=== PATIENT | male | born 1945 | race Caucasian/White ===

== ENCOUNTER → 2017-04-01 | Outpatient (CLI) | payer MEDICARE, OTHER ==
--- NOTE | 2017-04-01 13:23 | RADIOLOGY REPORT (SQ) ---
EXAM DESCRIPTION: U/S RETROPERITON (RENAL/AORTA); U/S LTD DUPLEX ART/GIA FLOW COMPLETED DATE/TIME: 04/01/2017 12:10 pm REASON FOR STUDY: I70.1 ATHEROSCLEROSIS OF RENAL ARTERY I10 ESSENTIAL (PRIMARY) HYPERTENSION; I70.1 I70.1 ATHEROSCLEROSIS OF RENAL ARTERY I10 ESSENTIAL (PRIMARY) HYPERTENSION N18.6 END STAGE RENAL D ISEASE COMPARISON: None. TECHNIQUE: Realtime and static grayscale images acquired. Selected color Doppler, velocities and spe ctral images recorded. LIMITATIONS: Renal arteries not well-visualized off the aorta FINDINGS: RIGHT KIDNEY: RENAL ARTERY VELOCITIES: At the hilum, 56 cm/sec. Segmental artery velocity 30 cm/sec. RENAL VEIN: Color doppler flow present, patent. VELOCITY RATIO: 0.9. Normal waveforms. KIDNEY: Right kidney is 9 cm in length with diffuse increased echogenicity. No cysts, stones, ashley s, or hydronephrosis LEFT KIDNEY: RENAL ARTERY VELOCITIES: At the hilum, 85 cm/sec. Segmental artery velocity 29 cm/sec. RENAL VEIN: Color doppler flow present, patent. VELOCITY RATIO: 1.4. Normal waveforms. KIDNEY: Left kidney is 9 cm in length with diffuse increased echogenicity. No cysts, stones, ashley s, or hydronephrosis BLADDER: Empty, not visualized OTHER: No other significant finding. IMPRESSION: NO DOPPLER EVIDENCE OF HEMODYNAMICALLY SIGNIFICANT RENAL ARTERY STENOSIS. ECHOGENIC KIDNEYS FROM MEDICAL RENAL DISEASE COMMENT: NORMAL RENAL ARTERY/AORTA VELOCITY RATIO IS LESS THAN OR EQUAL TO 3.5. TECHNICAL DOCUMENTATION: JOB ID: [id number] [email or web address]- All Rights Reserved
== END ==
LOC: RAD 13:32
PROVIDERS: ATTEND Internal Medicine Clinical Cardiac Electrophysiology
DX: I70.1 Atherosclerosis of renal artery (principal); I25.10 Atherosclerotic heart disease of native coronary artery without angina pectoris; N18.6 End stage renal disease; Z95.1 Presence of aortocoronary bypass graft
CPT/HCPCS: 76770; 93976

== ENCOUNTER 2017-09-06 09:32 | Day surgery (SDC) | payer OTHER, MEDICARE ==
[~2017-09-06 09:32] MED LIST: KETOROLAC TROMETHAMINE 0.45% 4 DROP/0.4 ML DROPERETTE OS PRN
[2017-09-06] MEDS: TROPICAMIDE 1% OPH SOLN 3 ML OS PRN ×3 (11:05→11:32)
[2017-09-06] MEDS: CYCLOPENTOLATE 0.2%/PHENYLEPHRINE 1% OPH SOLN 2 ML OS PRN ×3 (11:05→11:32)
[2017-09-06] MEDS: TETRACAINE HCL 0.5% OPH SOLN 0.6 ML DROPERETTE OS PRN ×2 (11:05→11:35)
[2017-09-06] MEDS: BESIFLOXACIN HCL 0.6% OPH SUSP 5 ML BOTTLE OS PRN ×4 (11:06→12:17)
[2017-09-06] MEDS ORDERED: FENTANYL CITRATE INJ/PF 100 MCG/2 ML AMPUL ONE ×2 (11:25→11:59)
[2017-09-06] MEDS ORDERED: MIDAZOLAM 2 MG/2 ML INJ ONE ×2 (11:25→11:54)
[2017-09-06] MEDS: BUPIVACAINE HCL 0.75% INJ/PF (7.5 MG/1 ML) 10 ML SDV OS PRN ×2 (11:48)
[2017-09-06] MEDS: LIDOCAINE 4% INJ/PF (40 MG/ML) 5 ML AMPUL OS PRN ×2 (11:48)
[2017-09-06] MEDS: LIDOCAINE 1%/PHENYLEPHRINE 1.5% 1 ML VIAL ONE ×2 (12:05)
[2017-09-06] MEDS ORDERED: CHONDR SU A NA/HYALUR INTRAOC KIT (SURGICARE) ONE (12:10)
[2017-09-06] MEDS ORDERED: EPINEPHRINE INJ/PF 1 MG/1 ML AMPULE ONE (12:10)
--- NOTE | 2017-09-06 12:45 | [facility] DISCHARGE SUMMARY E ---
[facility] Discharge Summary NAME: JULIANNA MCKEON AGE: 71Y ADMITTED: 09/06/2017 DISCHARGED: 09/06/2017 HOSPITAL COURSE: The patient is a 71-year-old gentleman who underwent uneventful cataract extraction with intraocular lens implant left eye on 09/07/2017. He will be discharged to home. He is instructed to resume preoperative medications, take Tylenol as needed for discomfort, to keep his eye shielded, to use Predforte, ketorolac, and Vigamox at 3 p.m. and 8 p.m., and to follow up in my office in 1 day. DICTATING PHYSICIAN: ADAM ALICIA M.D. [id number] PHY#: [id number] ID: [id number] JOB#: [id number] ACCT: [id number] cc:ADAM ALICIA M.D. >
--- NOTE | 2017-09-06 12:46 | [facility] OPERATIVE REPORT E ---
[facility] Operative Report NAME: JULIANNA MCKEON AGE: 71Y DATE OF SURGERY: 09/06/2017 ROOM: PREOPERATIVE DIAGNOSIS: Cataract, left eye. POSTOPERATIVE DIAGNOSIS: Cataract, left eye. PROCEDURE PERFORMED: Phacoemulsification with posterior chamber intraocular lens, left eye. SURGEON: ADAM ALICIA M.D. ANESTHESIA: Topical with MAC. INDICATIONS FOR SURGERY: Difficulty with lights at night and small print. Best corrected visual acuity 20/50. PROCEDURE: The patient was brought to the Operating Room and placed on the operative table. Following tetracaine drops, topical anesthesia was administered. This consisted of instrument wipe pledgets soaked in a solution of 4% Xylocaine mixed with 0.75% Marcaine in a 1:2 ratio. A 2 x 1 cm pledget was placed in the superior fornix. A 1 x 1 cm pledget was placed in the inferior fornix. The eye was patched shut for 5 minutes. The patch was removed. The eye was sterilely prepped and draped in the usual manner. Lid speculum was placed in the eye. The pledgets were removed. 4-0 black silk sutures were placed around the superior and the inferior rectus muscles to be used as traction. A conjunctival peritomy was made at the 10 o'clock position. Hemostasis was obtained with bipolar cautery. A posterior limbal groove was created using a crescent knife and dissected anteriorly towards the cornea. A sharp point blade was used to create a paracentesis site at the 2 o'clock position. A 2.4 mm keratome was used to enter the anterior chamber through the groove. Viscoelastic was injected into the anterior chamber. An anterior capsulotomy was performed using Utrata forceps in a capsulorrhexis fashion. Hydrodissection and hydrodelineation were performed. Phacoemulsification was performed in owuklz-vyj-czsdosn technique. A total of 6.58 CDE phaco time was used. Following this, the I/A unit was used to remove residual cortex. Viscoelastic was injected into the capsular bag. Intraocular lens model SN60WF, 25.5 diopters, serial number [id number] was placed in the capsular bag. The I/A unit was used to remove residual viscoelastic. The wound was seen to be watertight under high and low pressure, and no sutures were placed. The intraocular lens was well centered. The pressure was adjusted in the eye to normal pressure. The 4-0 black silk sutures and lid speculum were removed. The eye was shielded after Besivance drops were placed. The patient tolerated the procedure well and was sent to the Recovery Room in good condition. DICTATING PHYSICIAN: ADAM ALICIA M.D. [id number] PHY#: [id number] ID: [id number] JOB#: [id number] ACCT: [id number] cc:ADAM ALICIA M.D. >
== END 2017-09-06 13:20 | disposition home or self-care (01) ==
LOC: SC 09:32
PROVIDERS: ATTEND Ophthalmology
DX: H25.813 Combined forms of age-related cataract, bilateral (principal); H04.123 Dry eye syndrome of bilateral lacrimal glands; H57.03 Miosis; E03.9 Hypothyroidism, unspecified; M19.90 Unspecified osteoarthritis, unspecified site; I48.91 Unspecified atrial fibrillation; E11.22 Type 2 diabetes mellitus with diabetic chronic kidney disease; I12.9 Hypertensive chronic kidney disease with stage 1 through stage 4 chronic kidney disease, or unspecified chronic kidney disease; N18.9 Chronic kidney disease, unspecified; D63.1 Anemia in chronic kidney disease; Z99.2 Dependence on renal dialysis; I25.2 Old myocardial infarction; Z79.82 Long term (current) use of aspirin; Z79.899 Other long term (current) drug therapy; Z87.891 Personal history of nicotine dependence; Z79.891 Long term (current) use of opiate analgesic
CPT/HCPCS: 66984; 82962; V2632; J2250; J3490 ×3; J0171; J3010; J2370; 142

== ENCOUNTER 2017-09-27 09:58 | Day surgery (SDC) | payer OTHER, MEDICARE ==
[~2017-09-27 09:58] MED LIST changes: +BESIFLOXACIN HCL 0.6% OPH SUSP 5 ML BOTTLE OD PRN; +BUPIVACAINE HCL 0.75% INJ/PF (7.5 MG/1 ML) 10 ML SDV OD PRN; +CHONDR SU A NA/HYALUR INTRAOC KIT (SURGICARE) ONE; +CYCLOPENTOLATE 0.2%/PHENYLEPHRINE 1% OPH SOLN 2 ML OD PRN; +EPINEPHRINE INJ/PF 1 MG/1 ML AMPULE ONE; +KETOROLAC TROMETHAMINE 0.45% 4 DROP/0.4 ML DROPERETTE OD PRN; -KETOROLAC TROMETHAMINE 0.45% 4 DROP/0.4 ML DROPERETTE OS PRN; +LIDOCAINE 4% INJ/PF (40 MG/ML) 5 ML AMPUL OD PRN; +MIDAZOLAM 2 MG/2 ML INJ ONE; +TETRACAINE HCL 0.5% OPH SOLN 0.6 ML DROPERETTE OD PRN; +TROPICAMIDE 1% OPH SOLN 3 ML OD PRN
[2017-09-27] MEDS: TROPICAMIDE 1% OPH SOLN 3 ML OD PRN ×3 (11:10→11:28)
[2017-09-27] MEDS: TETRACAINE HCL 0.5% OPH SOLN 0.6 ML DROPERETTE OD PRN ×2 (11:10→11:30)
[2017-09-27] MEDS: CYCLOPENTOLATE 0.2%/PHENYLEPHRINE 1% OPH SOLN 2 ML OD PRN ×3 (11:10→11:28)
[2017-09-27] MEDS: BESIFLOXACIN HCL 0.6% OPH SUSP 5 ML BOTTLE OD PRN ×4 (11:10→12:10)
[2017-09-27] MEDS ORDERED: LIDOCAINE 1%/PHENYLEPHRINE 1.5% 1 ML VIAL ONE (12:22)
--- NOTE | 2017-09-27 12:25 | [facility] OPERATIVE REPORT E ---
[facility] Operative Report NAME: JULIANNA MCKEON AGE: 71Y DATE OF SURGERY: 09/27/2017 ROOM: PREOPERATIVE DIAGNOSES: 1. Cataract, right eye. 2. Miosis, right eye. POSTOPERATIVE DIAGNOSES: 1. Cataract, right eye. 2. Miosis, right eye. PROCEDURE PERFORMED: Complex cataract extraction with intraocular lens implant, right eye. SURGEON: ADAM ALICIA M.D. ANESTHESIA: Topical with MAC. INDICATIONS FOR SURGERY: Difficulty reading words on TV and road signs. Best corrected visual acuity 20/50. INDICATIONS FOR COMPLEX: Poor pupil dilation regarding the use of a Malyugin ring. PROCEDURE: The patient was brought to the operating room and placed on the operating table. Topical anesthesia was administered. This consisted of instrument wipe pledgets soaked in a solution of 4% Xylocaine mixed with 0.75% Marcaine in a 1:2 ratio. A 2 x 1 cm pledget was placed in the superior fornix. A 1 x 1 cm pledget was placed in the inferior fornix. The eye was patched shut for 5 minutes. The patch and pledgets were removed. The eye was sterilely prepped and draped in the usual manner. A lid speculum was placed in the eye. A 4-0 black silk suture was placed around the superior and inferior rectus muscles to use as traction. A conjunctival peritomy was made at the 10 o'clock position. Hemostasis was attained with bipolar cautery. A posterior limbal groove was created using a crescent knife and dissected anteriorly towards the cornea. A sharp point blade was used to create a paracentesis site at the 2 o'clock position. A 2.4 mm keratome was used to enter the anterior chamber through the groove. Then 0.5 mL of 1% nonpreserved lidocaine was injected into the anterior chamber. Viscoelastic was injected into the anterior chamber. Pupil dilation was approximately 4.5 mm. A Malyugin Ring was placed stabilizing the iris. An anterior capsulotomy was performed using Utrata forceps in a capsulorrhexis fashion. Hydrodissection and hydrodelineation were performed. Phacoemulsification was performed in a omtwsf-ncv-fnwhaok technique. A total of 35 seconds total phaco time was used. Following this, the I/A unit was used to remove residual cortex. Viscoelastic was injected into the capsular bag. Intraocular lens model SN60WF, 23.5 diopters, serial number [id number], was placed in the capsular bag. The Malyugin ring haptics were removed and the ring was removed from the eye. The I/A unit was used to remove residual viscoelastic. The wound was seen to be watertight under high and low pressure and no sutures were placed. The 4-0 black silk sutures and lid speculum were removed. The eye was shielded after Besivance drops were placed. The patient tolerated the procedure well and was sent to the recovery room in good condition. DICTATING PHYSICIAN: ADAM ALICIA M.D. [id number] PHY#: [id number] ID: [id number] JOB#: [id number] ACCT: [id number] cc:ADAM ALICIA M.D. >
--- NOTE | 2017-09-27 12:26 | [facility] DISCHARGE SUMMARY E ---
[facility] Discharge Summary NAME: JULIANNA MCKEON AGE: 71Y ADMITTED: 09/27/2017 DISCHARGED: 09/27/2017 FINAL DIAGNOSES: 1. Cataract, right eye. 2. Miosis, right eye. HOSPITAL COURSE: The patient is a 71-year-old gentleman who underwent uneventful complex cataract extraction with intraocular lens implant, right eye, on 09/27/2017. He will be discharged to home. He was instructed to resume preoperative medications; to take Tylenol as needed for discomfort; to keep his eye shielded; to use Vigamox, ketorolac, and prednisolone at 3 p.m. and 8 p.m.; and to follow up in my office in 1 day. DICTATING PHYSICIAN: ADAM ALICIA M.D. [id number] PHY#: [id number] ID: [id number] JOB#: [id number] ACCT: [id number] cc:ADAM ALICIA M.D. >
== END 2017-09-27 13:00 | disposition home or self-care (01) ==
LOC: SC 09:58
PROVIDERS: ATTEND Ophthalmology
DX: H25.811 Combined forms of age-related cataract, right eye (principal); H57.03 Miosis; Z96.1 Presence of intraocular lens; M19.90 Unspecified osteoarthritis, unspecified site; D64.9 Anemia, unspecified; E07.9 Disorder of thyroid, unspecified; K21.9 Gastro-esophageal reflux disease without esophagitis; I10 Essential (primary) hypertension; I48.91 Unspecified atrial fibrillation; Z88.2 Allergy status to sulfonamides; Z79.82 Long term (current) use of aspirin; Z79.899 Other long term (current) drug therapy
CPT/HCPCS: 66982; V2632; J2250; J3490 ×3; J0171; J2370; 142

== ENCOUNTER 2017-12-18 13:26 | Emergency (ER) | payer MEDICARE, OTHER ==
--- NOTE | 2017-12-18 13:57 | ER Document Report ---
ED General - General TRAVEL OUTSIDE OF THE [place] IN LAST 30 DAYS: No <JAZMIN SCHRADER - Last Filed: 12/18/17 19:00> <JOVAN CARRILLO - Last Filed: 12/18/17 20:02> - General Chief Complaint: Shortness Of Breath Stated Complaint: SHORTNESS OF BREATH Time Seen by Provider: 12/18/17 13:43 - HPI Notes: Patient is a 72-year-old male with a history of coronary artery disease status post stent placement and CABG in the past, congestive heart failure, A. fib, end -stage renal disease (on peritoneal dialysis daily) who presents to the ED complaining of ongoing dyspnea on exertion and shortness of breath. Patient states that activity exacerbates his symptoms. He was admitted at [facility] for the past 4 weeks and was discharged 3 days ago. Patient states that he was admitted for a "chronic pneumonia." Patient states that he is otherwise eating and drinking without any difficulties. He is having normal bowel movements. Denies h/o COPD/emphysema, but is on inhalers and O2 at home. Denies any headache, fever, neck pain, URI, sore throat, chest pain, palpitations, syncope , abdominal pain, nausea/vomiting/diarrhea, urinary retention, dysuria, hematuria, or rash. (JAZMIN SCHRADER) - Related Data Allergies/Adverse Reactions: Sulfa (Sulfonamide Antibiotics) Allergy (Verified 12/18/17 13:37) Past Medical History - Social History Smoking Status: Never Smoker Family History: Reviewed & Not Pertinent - Past Medical History Cardiac Medical History: Reports: Hx Atrial Fibrillation, Hx Coronary Artery Disease, Hx Hypertension Denies: Hx Heart Attack Pulmonary Medical History: Denies: Hx Asthma Neurological Medical History: Denies: Hx Cerebrovascular Accident, Hx Seizures Renal/ Medical History: Reports: Hx End Stage Renal Disease GI Medical History: Reports: Hx Hiatal Hernia. Denies: Hx Hepatitis, Hx Ulcer Musculoskeletal Medical History: Reports Hx Arthritis Psychiatric Medical History: Reports: Hx Depression - anxiety Infectious Medical History: Denies: Hx Hepatitis Past Surgical History: Reports: Hx Cardiac Catheterization, Hx Cardiac Surgery, Hx Open Heart Surgery. Denies: Hx Pacemaker - Immunizations Hx Pneumococcal Vaccination: 11/28/14 <JAZMIN SCHRADER - Last Filed: 12/18/17 19:00> Review of Systems - Review of Systems -: Yes All other systems reviewed and negative <JAZMIN SCHRADER - Last Filed: 12/18/17 19:00> Physical Exam <JAZMIN SCHRADER - Last Filed: 12/18/17 19:00> <JOVAN CARRILLO - Last Filed: 12/18/17 20:02> - Vital signs Vitals: Temp Resp Pulse Ox 98.3 F 21 H 92 12/18/17 13:32 12/18/17 13:32 12/18/17 13:32 - Notes Notes: PHYSICAL EXAMINATION: GENERAL: Well-appearing, well-nourished and in no acute distress. HEAD: Atraumatic, normocephalic. EYES: Pupils equal round and reactive to light, extraocular movements intact, sclera anicteric, conjunctiva are normal. ENT: Nares patent and without discharge. oropharynx clear without exudates. No tonsilar hypertrophy or erythema. Moist mucous membranes. NECK: Normal range of motion, supple without lymphadenopathy LUNGS: diminished airflow with crackles b/l base. HEART: Regular rate and rhythm without murmurs, rubs, gallops. ABDOMEN: Soft, nontender, nondistended abdomen. No guarding, no rebound. No masses appreciated. Normal bowel sounds present. Musculoskeletal: FROM to passive/active. Strength 5+/5. Extremities: 1+ pitting edema b/l LE's. Peripheral pulses 2+. Capillary refill less than 3 seconds. Melissa neg b/l. NEUROLOGICAL: Cranial nerves grossly intact. Normal speech, normal gait. PSYCH: Normal mood, normal affect. SKIN: Warm, Dry, normal turgor, no rashes or lesions noted. (JAZMIN SCHRADER) Course - Laboratory Result Diagrams: 12/18/17 13:35 12/18/17 13:35 <JAZMIN SCHRADER - Last Filed: 12/18/17 19:00> - Laboratory Result Diagrams: 12/18/17 13:35 12/18/17 13:35 <JOVAN CARRILLO - Last Filed: 12/18/17 20:02> - Re-evaluation Re-evalutation: 12/18/17 15:39 Chest x-ray shows acute CHF exacerbation. BNP 268,000 in the setting of CHF exacerbation and end-stage renal disease. A call was placed for Dr. Tee as Dr. Eric is currently out of commission for health reasons. 12/18/17 16:19 No call back from Dr. Tee (not technically on-call) I did check with our hospitalist, Dr. Vaca, who will not accept due to needing dialysis with no nephrology to consult. Call placed to [facility] for transfer. 12/18/17 16:43 I did speak with Dr. Jillian Mckoy, hospitalist, who accepted patient for admission. He would like us to notify him if any respiratory distress or hypoxia. We will start Zosyn IV. I did review this with the family who is in agreement for transfer. 12/18/17 19:00 Transfer of care to Priya TORRES (JAZMIN SCHRADER) 12/18/17 20:01 EMS is at patient's bedside awaiting transfer. Patient continues to be conscious alert and oriented x4 with vital signs stable. (JOVAN CARRILLO) - Vital Signs Vital signs: Temp Pulse Resp BP Pulse Ox 99.0 F 22 H 143/70 H 96 12/18/17 19:51 12/18/17 19:01 12/18/17 19:00 12/18/17 19:01 - Laboratory Laboratory results interpreted by me: 12/18/17 12/18/17 12/18/17 13:35 13:35 13:35 WBC 12.9 H RBC 2.75 L Hgb 8.4 L Hct 26.4 L MCHC 31.6 L RDW 16.8 H Seg Neuts % (Manual) 91 H Lymphocytes % (Manual) 5 L Abs Neuts (Manual) 11.7 H VBG pCO2 VBG HCO3 Sodium 133.7 L Potassium 5.8 H Chloride 88 L Carbon Dioxide 35 H BUN 105 H Creatinine 8.49 H Est GFR ( Amer) 8 L Est GFR (Non-Af Amer) 6 L Glucose 118 H Direct Bilirubin 0.5 H ALT 20 L NT-Pro-B Natriuret Pep [id number] H Albumin 3.3 L 12/18/17 13:35 WBC RBC Hgb Hct MCHC RDW Seg Neuts % (Manual) Lymphocytes % (Manual) Abs Neuts (Manual) VBG pCO2 63.1 H VBG HCO3 33.9 H Sodium Potassium Chloride Carbon Dioxide BUN Creatinine Est GFR ( Amer) Est GFR (Non-Af Amer) Glucose Direct Bilirubin ALT NT-Pro-B Natriuret Pep Albumin Discharge <JAZMIN SCHRADER - Last Filed: 12/18/17 19:00> <JOVAN CARRILLO - Last Filed: 12/18/17 20:02> - Discharge Clinical Impression: ESRD (end stage renal disease), Pleural effusion due to CHF (congestive heart failure) CHF exacerbation Qualifiers: Heart failure type: unspecified Qualified Code(s): I50.9 - Heart failure, unspecified Condition: Stable Disposition: [facility] Referrals: CHAPARRITA VEGA MD [Primary Care Provider] - Follow up as needed
[2017-12-18 14:24] LABS: HEMATOCRIT 26.4 % (37.9-51.0); HEMOGLOBIN 8.4 g/dL (13.5-17.0); MEAN CORPUSCULAR HEMOGLOBIN 30.3 pg (27.0-33.4); MEAN CORPUSCULAR HGB CONC 31.6 g/dL (32.0-36.0); MEAN CORPUSCULAR VOLUME 96 fl (80-97); PLATELET COUNT 169 10^3/uL (150-450); RED BLOOD COUNT 2.75 10^6/uL (4.35-5.55); RED CELL DISTRIBUTION WIDTH 16.8 % (11.5-14.0); WHITE BLOOD COUNT 12.9 10^3/uL (4.0-10.5)
[2017-12-18 14:26] LABS: ALANINE AMINOTRANSFERASE 20 U/L (21-72); ALBUMIN 3.3 g/dL (3.5-5.0); ALKALINE PHOSPHATASE 107 U/L (38-126); ANION GAP 11 (5-19); ASPARTATE AMINO TRANSFERASE 26 U/L (17-59); BILIRUBIN,DIRECT 0.5 mg/dL (0.0-0.4); BILIRUBIN,TOTAL 0.5 mg/dL (0.2-1.3); BLOOD UREA NITROGEN 105 mg/dL (7-20); CALCIUM 9.3 mg/dL (8.4-10.2); CARBON DIOXIDE 35 mmol/L (22-30); CHLORIDE 88 mmol/L (98-107); GLUCOSE 118 mg/dL (75-110); POTASSIUM 5.8 mmol/L (3.6-5.0); SODIUM 133.7 mmol/L (137-145); TOTAL PROTEIN 7.8 g/dL (6.3-8.2)
[2017-12-18 14:43] LABS: ABSOLUTE LYMPHOCYTES# (MANUAL) 0.6 10^3/uL (0.5-4.7); ABSOLUTE MONOCYTES # (MANUAL) 0.4 10^3/uL (0.1-1.4); ABSOLUTE NEUTROPHILS# (MANUAL) 11.7 10^3/uL (1.7-8.2); BASOPHILS % (MANUAL) 0 % (0-2); EOSINOPHILS % (MANUAL) 1 % (0-6); LYMPHOCYTES % (MANUAL) 5 % (13-45); MONOCYTES % (MANUAL) 3 % (3-13); SEGMENTED NEUTROPHILS % (MAN) 91 % (42-78); TOTAL CELLS COUNTED 100
[2017-12-18 14:44] LABS: ANISOCYTOSIS 1+; PLATELET COMMENT ADEQUATE; POIKILOCYTOSIS 1+; TEAR DROP CELLS 1+
--- NOTE | 2017-12-18 14:45 | RADIOLOGY REPORT (SQ) ---
EXAM DESCRIPTION: CHEST SINGLE VIEW COMPLETED DATE/TIME: 12/18/2017 2:36 pm REASON FOR STUDY: josef MCCRACKEN COMPARISON: 07/24/2015 EXAM PARAMETERS: NUMBER OF VIEWS: One view. TECHNIQUE: Single frontal radiographic view of the chest acquired. RADIATION DOSE: NA LIMITATIONS: None. FINDINGS: LUNGS AND PLEURA: Mixed interstitial and airspace opacities at the lung bases. Small bila teral pleural effusions. No pneumothorax. MEDIASTINUM AND HILAR STRUCTURES: No masses. Contour normal. HEART AND VASCULAR STRUCTURES: Cardiomegaly. Central vascular prominence and indistinctness. BONES: No acute findings. HARDWARE: Midline surgical changes. OTHER: No other significant finding. IMPRESSION: Constellation of findings suggest CHF exacerbation; superimposed infectious process is n ot excluded. TECHNICAL DOCUMENTATION: JOB ID: [id number] [employer]- All Rights Reserved Reading location - IP/workstation name: [email or web address]
[2017-12-18 15:01] LABS: VENOUS BLOOD BASE EXCESS 6.6 mmol/L; VENOUS BLOOD HCO3 33.9 mmol/L (20-32); VENOUS BLOOD PCO2 63.1 mmHg (35-63); VENOUS BLOOD PH 7.35 (7.30-7.42)
[2017-12-18] MEDS ORDERED: LORAZEPAM INJ 2 MG/1 ML VIAL IV ONE ×2 (15:06→18:22)
[2017-12-18] MEDS ORDERED: FUROSEMIDE INJ/PF 40 MG/4 ML SDV IV ONE (15:06)
[2017-12-18 15:22] LABS: TROPONIN I 0.046 ng/mL
--- NOTE | 2017-12-18 16:27 | EKG REPORT ---
SEVERITY:- ABNORMAL ECG - ATRIAL FIBRILLATION LEFT BUNDLE BRANCH BLOCK INFERIOR Q WAVES, POSSIBLY DUE TO LBBB : Confirmed by: Kd Longoria MD 18-Dec-2017 16:26:11
[2017-12-18] MEDS ORDERED: PIPERACILLIN/TAZOBACTAM 3.375 GM VIAL IV ONE (17:34)
[2017-12-18] MEDS ORDERED: ONDANSETRON HCL INJ/PF 4 MG/2 ML SDV IV ONE (18:30)
[2017-12-18 19:20] VITALS: BP 143/70
== END 2017-12-18 20:08 | disposition short-term general hospital (02) ==
LOC: ER 13:26
DX: I13.2 Hypertensive heart and chronic kidney disease with heart failure and with stage 5 chronic kidney disease, or end stage renal disease (principal); N18.6 End stage renal disease; I50.9 Heart failure, unspecified; Z99.2 Dependence on renal dialysis; R06.02 Shortness of breath; I25.10 Atherosclerotic heart disease of native coronary artery without angina pectoris; I48.91 Unspecified atrial fibrillation
CPT/HCPCS: 93005; 96376; 94640; 99285; 96375; 96365; 36415; 85025; 80053; 84484; 82803; 83880; 71045; 93010; J1940; J2060; J2405; J2543

== ENCOUNTER 2018-01-09 17:49 | Inpatient (IN) | payer MEDICARE, OTHER ==
[2018-01-09] MEDS ORDERED: FENTANYL CITRATE INJ/PF 100 MCG/2 ML AMPUL IV ONE ×3 (18:51→22:03)
[2018-01-09] MEDS ORDERED: ONDANSETRON HCL INJ/PF 4 MG/2 ML SDV IV ONE (18:51)
--- NOTE | 2018-01-09 18:56 | ER Document Report ---
ED General - General Mode of Arrival: Ambulatory Information source: Patient TRAVEL OUTSIDE OF THE [place] IN LAST 30 DAYS: No - HPI Onset: Other - 4 days ago Quality of pain: Cramping Severity: Moderate Associated symptoms: Nausea, Vomiting Exacerbated by: Denies Relieved by: Denies Similar symptoms previously: No Recently seen / treated by doctor: No <DESTINEE JNAE - Last Filed: 01/09/18 23:57> <LUCY FRANCO - Last Filed: 01/10/18 02:36> - General Chief Complaint: Abdominal Pain Stated Complaint: POSSIBLE BOWEL OBSTRUCTION Time Seen by Provider: 01/09/18 18:31 Notes: 72-year-old male presents emergency department with a 4-day history of nausea, vomiting, constipation, diffuse abdominal pain. Patient states that the abdominal pain comes in waves. He describes it is a cramping sensation. He denies any alleviating or exacerbating factors. He is passing gas. He denies any hematemesis, melena, hematochezia, dysuria, hematuria, increased urgency, increased frequency, penile discharge, testicular pain. He denies any surgeries on his abdomen. He is eating/drinking despite his symptoms. Patient says that he has chronic neck pain and goes to pain management. Has been taking his narcotic pain medication as needed. He acknowledges that this can be causing his constipation. (DESTINEE JANE) - Related Data Allergies/Adverse Reactions: Sulfa (Sulfonamide Antibiotics) Allergy (Verified 12/18/17 13:37) Past Medical History - General Information source: Patient - Social History Smoking Status: Former Smoker Family History: Reviewed & Not Pertinent Patient has suicidal ideation: No Patient has homicidal ideation: No - Past Medical History Cardiac Medical History: Reports: Hx Atrial Fibrillation, Hx Coronary Artery Disease, Hx Hypertension Denies: Hx Heart Attack Pulmonary Medical History: Denies: Hx Asthma Neurological Medical History: Denies: Hx Cerebrovascular Accident, Hx Seizures Renal/ Medical History: Reports: Hx End Stage Renal Disease, Hx Peritoneal Dialysis GI Medical History: Reports: Hx Hiatal Hernia. Denies: Hx Hepatitis, Hx Ulcer Musculoskeletal Medical History: Reports Hx Arthritis Psychiatric Medical History: Reports: Hx Depression - anxiety Infectious Medical History: Denies: Hx Hepatitis Past Surgical History: Reports: Hx Cardiac Catheterization, Hx Cardiac Surgery, Hx Open Heart Surgery. Denies: Hx Pacemaker - Immunizations Hx Pneumococcal Vaccination: 11/28/14 <DESTINEE JANE - Last Filed: 01/09/18 23:57> Review of Systems - Review of Systems Constitutional: No symptoms reported EENT: No symptoms reported Cardiovascular: No symptoms reported Respiratory: No symptoms reported Gastrointestinal: Abdominal pain, Nausea, Vomiting Genitourinary: No symptoms reported Musculoskeletal: No symptoms reported Skin: No symptoms reported Hematologic/Lymphatic: No symptoms reported Neurological/Psychological: No symptoms reported -: Yes All other systems reviewed and negative <DESTINEE JANE - Last Filed: 01/09/18 23:57> Physical Exam <DESTINEE JANE - Last Filed: 01/09/18 23:57> <LUCY FRANCO - Last Filed: 01/10/18 02:36> - Vital signs Vitals: Temp Pulse Resp BP Pulse Ox 98.3 F 87 18 129/70 H 100 01/09/18 18:01 01/09/18 18:01 01/09/18 18:01 01/09/18 18:01 01/09/18 18:01 - Notes Notes: PHYSICAL EXAMINATION: GENERAL: Well-appearing, well-nourished and in no acute distress. HEAD: Atraumatic, normocephalic. EYES: Pupils equal round and reactive to light, extraocular movements intact, sclera anicteric, conjunctiva are normal. ENT: Nares patent, oropharynx clear without exudates. Moist mucous membranes. NECK: Normal range of motion, supple without lymphadenopathy LUNGS: Breath sounds clear to auscultation bilaterally and equal. No wheezes rales or rhonchi. HEART: Regular rate and rhythm without murmurs ABDOMEN: Soft, diffuse tenderness to palpation. No rebound or guarding. Normal active bowel sounds. Musculoskeletal: Normal range of motion, no pitting or edema. No cyanosis. NEUROLOGICAL: Cranial nerves grossly intact. Normal speech, normal gait. Normal sensory, motor exams PSYCH: Normal mood, normal affect. SKIN: Warm, Dry, normal turgor, no rashes or lesions noted. (DESTINEE JANE ) Course - Laboratory Result Diagrams: 01/09/18 19:08 01/09/18 19:08 <DESTINEE JANE - Last Filed: 01/09/18 23:57> - Laboratory Result Diagrams: 01/09/18 19:08 01/09/18 19:08 <LUCY FRANCO - Last Filed: 01/10/18 02:36> - Re-evaluation Re-evalutation: 01/09/18 20:21 EKG: Ventricular rate 82, QRS duration 162, QTc 528, atrial fibrillation. left bundle branch block. Similar to EKG done on 12/18/17. 01/09/18 23:00 WBC is within normal limits. CT abd/pelvis done. Moderate left pleural effusion appreciated. Constipation seen. Patient denies shortness of breath, chest pain. Says he has a history of chronic pleural effusions. Patient still complaining of diffuse abdominal pain. Nausea resolved. No vomiting while in the ED. Re- evaluation of the abdomen done. Now showing peritoneal signs. Patient says his pain is worsening. I contacted the patient's sharepoint manager, Dr. Eric. I went over the patient's current labs and imaging. He says that the patient's peritoneal fluid needs to be sent down to lab for evaluation. I discussed this with the patient. He's not happy about having the peritoneal dialysis done in the ED. I explained to him that we need to rule out infection in the PD fluid. Patient insisting on receiving blood for his anemia. I told him his hemoglobin is stable when compared to previous values and no blood would be given. Patient is now agreeable with doing the peritoneal dialysis in the ED. I turned patient over to Dr. Franco with peritoneal dialysis pending. 01/09/18 23:26 (DESTINEE JANE) 01/10/18 02:24 Dr. Mccarthy checked of the patient to me awaiting the results of peritoneal fluid analysis. His white blood cell count peritoneal fluid is very high. I did speak with Dr. Eric, sharepoint manager, who requests that we mixed 1 g of vancomycin and 1 g of ceftazidime bag of dialysate fluid and put his abdomen to leave for 6 hours. Plan admit the patient to medicine. I will contact the hospitalist about admission. I explained the plan to the patient he is agreeable to it. 01/10/18 02:34 Spoke with hospitalist, Dr. Blackman, agrees to accept the patient for admission. (LUCY FRANCO) - Vital Signs Vital signs: Temp Pulse Resp BP Pulse Ox 98.3 F 92 16 157/71 H 93 01/09/18 18:01 01/09/18 23:43 01/10/18 02:01 01/10/18 02:00 01/10/18 02:01 - Laboratory Laboratory results interpreted by me: 01/09/18 01/09/18 19:08 19:08 RBC 2.64 L Hgb 8.5 L Hct 25.4 L RDW 17.7 H Seg Neuts % (Manual) 85 H Lymphocytes % (Manual) 6 L Sodium 131.0 L Potassium 5.3 H Chloride 87 L BUN 100 H Creatinine 7.94 H Est GFR ( Amer) 8 L Est GFR (Non-Af Amer) 7 L Calcium 8.2 L ALT 14 L Total Protein 5.9 L Albumin 2.8 L Lipase < 10.0 L Discharge <DESTINEE JANE - Last Filed: 01/09/18 23:57> - Discharge Admitting Provider: Hospitalist Unit Admitted: Telemetry <LUCY FRANCO - Last Filed: 01/10/18 02:36> - Discharge Clinical Impression: Bacterial peritonitis, ESRD (end stage renal disease) Constipation Qualifiers: Constipation type: unspecified constipation type Qualified Code(s): K59.00 - Constipation, unspecified Condition: Stable Disposition: ADMITTED OBSERVATION Referrals: CHAPARRITA VEGA MD [Primary Care Provider] - Follow up as needed
[2018-01-09 19:19] LABS: HEMATOCRIT 25.4 % (37.9-51.0); HEMOGLOBIN 8.5 g/dL (13.5-17.0); MEAN CORPUSCULAR HEMOGLOBIN 32.1 pg (27.0-33.4); MEAN CORPUSCULAR HGB CONC 33.4 g/dL (32.0-36.0); MEAN CORPUSCULAR VOLUME 96 fl (80-97); PLATELET COUNT 150 10^3/uL (150-450); RED BLOOD COUNT 2.64 10^6/uL (4.35-5.55); RED CELL DISTRIBUTION WIDTH 17.7 % (11.5-14.0); WHITE BLOOD COUNT 9.6 10^3/uL (4.0-10.5)
[2018-01-09 19:39] LABS: BLOOD UREA NITROGEN 100 mg/dL (7-20); CALCIUM 8.2 mg/dL (8.4-10.2); CARBON DIOXIDE 26 mmol/L (22-30); CHLORIDE 87 mmol/L (98-107); GLUCOSE 97 mg/dL (75-110); POTASSIUM 5.3 mmol/L (3.6-5.0)
[2018-01-09 19:40] LABS: ABSOLUTE LYMPHOCYTES# (MANUAL) 0.6 10^3/uL (0.5-4.7); ABSOLUTE MONOCYTES # (MANUAL) 0.9 10^3/uL (0.1-1.4); ABSOLUTE NEUTROPHILS# (MANUAL) 8.2 10^3/uL (1.7-8.2); ALANINE AMINOTRANSFERASE 14 U/L (21-72); ALBUMIN 2.8 g/dL (3.5-5.0); ALKALINE PHOSPHATASE 74 U/L (38-126); ANION GAP 18 (5-19); ASPARTATE AMINO TRANSFERASE 20 U/L (17-59); BASOPHILS % (MANUAL) 0 % (0-2); BILIRUBIN,DIRECT 0.4 mg/dL (0.0-0.4); BILIRUBIN,TOTAL 0.4 mg/dL (0.2-1.3); EOSINOPHILS % (MANUAL) 0 % (0-6); LYMPHOCYTES % (MANUAL) 6 % (13-45); MONOCYTES % (MANUAL) 9 % (3-13); SEGMENTED NEUTROPHILS % (MAN) 85 % (42-78); TOTAL CELLS COUNTED 100; TOTAL PROTEIN 5.9 g/dL (6.3-8.2)
[2018-01-09 19:41] LABS: ANISOCYTOSIS 1+; LIPASE < 10.0 U/L (23-300); PLATELET COMMENT ADEQUATE; POIKILOCYTOSIS SLIGHT; TOXIC GRANULATION SLIGHT
--- NOTE | 2018-01-09 22:02 | RADIOLOGY REPORT (SQ) ---
EXAM DESCRIPTION: CT ABDOMEN PELVIS WITHOUT IV CONTRAST COMPLETED DATE/TME: 01/09/2018 19:50 CLINICAL HISTORY: 72 years, Male, abdominal pain COMPARISON: None. TECHNIQUE: 282 Images stored on PACS. All CT scanners at this facility use dose modulation, iterative reconstruction, and/or weight based dosing when appropriate to reduce radiation dose to as low as reasonably achievable (ALARA). [facility]: Dose Right [facility]: CareDose [facility]: Dose Right [facility]: Teradose 4D [facility]: Shopsy LIMITATIONS: None. FINDINGS: Limited evaluation of the lung bases demonstrates a moderate left pleural effusion. Bibasilar subsegmental atelectasis. Cardiomegaly. Extensive atheromatous change. Osseous structures of the abdomen/pelvis are grossly intact. Evaluation of solid visceral organs is limited due to lack of IV contrast. Slightly coarsened echotexture to the liver. This could reflect early cirrhotic change.. Percutaneous catheter with the tip coiled in the right upper quadrant. The gallbladder appears mildly distended. The visualized portions of the spleen, adrenal glands, pancreas are grossly unremarkable. Kidneys are unremarkable bilaterally. Large amount of stool within the colon. No gross evidence for bowel obstruction. No free air or free fluid. The appendix is not well seen. No pericecal inflammation. IMPRESSION: Moderate left pleural effusion. Cardiomegaly. Extensive atheromatous change. Slightly coarsened echotexture to the liver which could reflect early cirrhotic change. Catheter with the tip coiled in the right upper quadrant. Large amount of stool in the colon. TECHNICAL DOCUMENTATION: Quality ID # 436: Final reports with documentation of one or more dose reduction techniques (e.g., Automated exposure control, adjustment of the mA and/or kV according to patient size, use of iterative reconstruction technique) 2010 [employer]- All Rights Reserved
[2018-01-09] MEDS ORDERED: MORPHINE SULFATE 10 MG/ML INJ IV ONE (23:33)
[2018-01-10 01:26] LABS: FLUID SOURCE ABDOMEN; FLUID TYPE PERITONEAL
[2018-01-10 01:27] LABS: FLUID APPEARANCE HAZY; FLUID COLOR STRAW; FLUID VISCOSITY LIQUID
[2018-01-10] MEDS ORDERED: CEFTAZIDIME INJ 1 GM VIAL INJ ONE (02:21)
[2018-01-10] MEDS ORDERED: VANCOMYCIN HCL INJ 1000 MG VIAL IPER ONE (02:21)
[2018-01-10] MEDS ORDERED: MINERAL OIL 30 ML UDCUP PR ONE (02:26)
[2018-01-10] MEDS ORDERED: IPRATROPIUM/ALBUTEROL 0.5-2.5 MG/3 ML AMPUL NEB PRN (02:36)
[2018-01-10] MEDS ORDERED: ACETAMINOPHEN 325 MG TABLET PO PRN (02:36)
[2018-01-10] MEDS ORDERED: MAGNESIUM HYDROXIDE SUSP 30 ML UDCUP PO PRN (02:36)
[2018-01-10] MEDS ORDERED: METOPROLOL TARTRATE 50 MG TABLET PO ONE (03:00)
[2018-01-10] MEDS ORDERED: NORMAL SALINE 1000 ML 1,000 ML IV PRN (03:00)
[2018-01-10] MEDS: LEVOTHYROXINE SODIUM 0.1 MG TABLET PO SCH (06:10)
[2018-01-10] MEDS ORDERED: MINERAL OIL ENEMA 133 ML PR ONE (06:13)
[2018-01-10 06:20] LABS: HEMATOCRIT 26.2 % (37.9-51.0); HEMOGLOBIN 8.5 g/dL (13.5-17.0); MEAN CORPUSCULAR HEMOGLOBIN 30.9 pg (27.0-33.4); MEAN CORPUSCULAR HGB CONC 32.3 g/dL (32.0-36.0); MEAN CORPUSCULAR VOLUME 96 fl (80-97); PLATELET COUNT 179 10^3/uL (150-450); RED BLOOD COUNT 2.75 10^6/uL (4.35-5.55); RED CELL DISTRIBUTION WIDTH 17.7 % (11.5-14.0); WHITE BLOOD COUNT 13.8 10^3/uL (4.0-10.5)
[2018-01-10 06:33] LABS: BLOOD UREA NITROGEN 97 mg/dL (7-20); CALCIUM 8.3 mg/dL (8.4-10.2); GLUCOSE 80 mg/dL (75-110); POTASSIUM 5.5 mmol/L (3.6-5.0)
[2018-01-10] MEDS ORDERED: LACTULOSE SYRUP 20 GM/30 ML UDCUP PO ONE (06:37)
--- NOTE | 2018-01-10 06:37 | PDOC H&P ---
History of Present Illness Admission Date/PCP: 01/10/18 02:40 CHAPARRITA VEGA MD Patient complains of: Nausea and vomiting History of Present Illness: JULIANNA MCKEON JR is a 72 year old male with a past medical history of end- stage renal failure on peritoneal dialysis. He presents with 4 days of nausea and vomiting, constipation and diffuse abdominal pain. Prompting evaluation emergency room where he is found to have peritonitis with peritoneal fluid WBCs greater than [address] with significant fecal retention. He is started on vancomycin and ceftaz to the peritoneal fluid per recommendation of his temporary administrative assistant Dr. Femi Eric. Past Medical History Cardiac Medical History: Reports: Atrial Fibrillation, Coronary Artery Disease, Hypertension Denies: Myocardial Infarction Pulmonary Medical History: Denies: Asthma Neurological Medical History: Denies: Seizures Renal/ Medical History: Reports: End Stage Renal Disease GI Medical History: Reports: Hiatal Hernia Denies: Hepatitis Musculoskeltal Medical History: Reports: Arthritis Psychiatric Medical History: Denies: Depression Hematology: Reports: Anemia Denies: Sickle Cell Disease Past Surgical History Past Surgical History: Reports: Cardiac Catheterization Denies: Pacemaker Social History Information Source: Patient, H Records Smoking Status: Unknown if Ever Smoked Frequency of Alcohol Use: None Hx Recreational Drug Use: No Drugs: None Hx Prescription Drug Abuse: No - Advance Directive Resuscitation Status: Full Code Family History Family History: Hypertension Parental Family History Reviewed: Yes Children Family History Reviewed: Yes Sibling(s) Family History Reviewed.: Yes Medication/Allergy Home Medications: Ascorbic Acid [Vitamin C] 500 mg PO BID 04/07/15 Aspirin [Aspirin 81 mg Chewable Tablet] 81 mg PO DAILY 04/07/15 Cyanocobalamin (Vitamin B-12) [Vitamin B-12 1000 mcg Tablet] 1 tab PO DAILY 10/13 Esomeprazole Magnesium [Nexium] 40 mg PO DAILY 04/07/15 Ferrous Sulfate [Feosol 325 mg Tablet] 325 mg PO BID 04/07/15 Folic Acid 1 mg PO DAILY 04/07/15 Furosemide [Lasix 40 mg Tablet] 40 mg PO DAILY 04/07/15 Lisinopril [Zestril] 20 mg PO BID 04/07/15 Metoprolol Tartrate [Lopressor 50 mg Tablet] 50 mg PO Q12H 04/07/15 Multivitamin [Multivitamins] 1 each PO DAILY 04/07/15 Pravastatin Sodium [Pravachol] 80 mg PO QHS 04/07/15 Tamsulosin HCl [Flomax 0.4 mg Cap.sr] 0.4 mg PO DAILY 04/07/15 Calcitriol 0.25 mcg PO DAILY 07/12/15 Calcium Acetate 667 mg PO TID 07/12/15 Hydroxyzine HCl 10 mg PO TIDP PRN 07/12/15 Magnesium Oxide 400 mg PO BID 07/12/15 Clonazepam [Klonopin 1 mg Tablet] 0.5 mg PO BID tablet 07/14/15 Levothyroxine Sodium [Synthroid 0.1 mg Tablet] 0.1 mg PO DAILY 09/01/17 Besifloxacin HCl [Besivance Drops] 1 drop OP TID 09/06/17 Difluprednate [Durezol] 1 drop OP ASDIR PRN 09/06/17 Nepafenac [Ilevro] 1 drop OP ASDIR PRN 09/06/17 Allergies/Adverse Reactions: Sulfa (Sulfonamide Antibiotics) Allergy (Verified 12/18/17 13:37) Review of Systems Constitutional: PRESENT: as per HPI, anorexia, fatigue Eyes: ABSENT: visual disturbances Ears: ABSENT: hearing changes Cardiovascular: ABSENT: chest pain, dyspnea on exertion, edema, orthropnea, palpitations Respiratory: ABSENT: cough, hemoptysis Gastrointestinal: PRESENT: as per HPI, abdominal pain, bloating, constipation, nausea, vomiting. ABSENT: diarrhea, heartburn, hematemesis Genitourinary: ABSENT: dysuria, hematuria Musculoskeletal: ABSENT: joint swelling Integumentary: ABSENT: rash, wounds Neurological: ABSENT: abnormal gait, abnormal speech, confusion, dizziness, focal weakness, syncope Psychiatric: ABSENT: anxiety, depression, homidical ideation, suicidal ideation Endocrine: ABSENT: cold intolerance, heat intolerance, polydipsia, polyuria Hematologic/Lymphatic: ABSENT: easy bleeding, easy bruising Physical Exam Vital Signs: Temp Pulse Resp BP Pulse Ox 97.4 F 91 19 112/56 L 96 01/10/18 06:01 01/10/18 06:01 01/10/18 06:01 01/10/18 06:01 01/10/18 06:01 Intake & Output 01/08/18 01/09/18 01/10/18 11:59 11:59 11:59 Intake Total 1800 Output Total 1800 Balance 0 Weight 59.1 kg General appearance: PRESENT: mild distress, well-developed, well-nourished Head exam: PRESENT: atraumatic, normocephalic Eye exam: PRESENT: conjunctiva pink, EOMI, PERRLA. ABSENT: scleral icterus Ear exam: PRESENT: normal external ear exam Mouth exam: PRESENT: moist, tongue midline Neck exam: ABSENT: carotid bruit, JVD, lymphadenopathy, thyromegaly Respiratory exam: PRESENT: clear to auscultation tata. ABSENT: rales, rhonchi, wheezes Cardiovascular exam: PRESENT: RRR. ABSENT: diastolic murmur, rubs, systolic murmur Pulses: PRESENT: normal dorsalis pedis pul Vascular exam: PRESENT: normal capillary refill GI/Abdominal exam: PRESENT: diminished bowel sounds, normal bowel sounds, soft, tenderness. ABSENT: distended, guarding, mass, organolmegaly, rebound Rectal exam: PRESENT: deferred Extremities exam: PRESENT: full ROM. ABSENT: calf tenderness, clubbing, pedal edema Neurological exam: PRESENT: alert, awake, oriented to person, oriented to place , oriented to time, oriented to situation, CN II-XII grossly intact. ABSENT: motor sensory deficit Psychiatric exam: PRESENT: appropriate affect, normal mood. ABSENT: homicidal ideation, suicidal ideation Skin exam: PRESENT: dry, intact, warm. ABSENT: cyanosis, rash Results Impressions: Abdomen/Pelvis CT 01/09/18 19:50 IMPRESSION: Moderate left pleural effusion. Cardiomegaly. Extensive atheromatous change. Slightly coarsened echotexture to the liver which could reflect early cirrhotic change. Catheter with the tip coiled in the right upper quadrant. Large amount of stool in the colon. TECHNICAL DOCUMENTATION: Quality ID # 436: Final reports with documentation of one or more dose reduction techniques (e.g., Automated exposure control, adjustment of the mA and/or kV according to patient size, use of iterative reconstruction technique) 2010 [employer]- All Rights Reserved Assessment & Plan - Diagnosis (1) Bacterial peritonitis Is this a current diagnosis for this admission?: Yes Plan: Telemetry admission, vancomycin and ceftazidime infusion to dialysate with abdominal infusion for 6 hours prior to drainage, follow-up orders for antibiotics per nephrology. Follow-up CBC blood and fluid culture (2) Constipation Qualifiers: Constipation type: unspecified constipation type Qualified Code(s): K59.00 - Constipation, unspecified Is this a current diagnosis for this admission?: Yes Plan: Mineral oil enema (3) ESRD (end stage renal disease) Is this a current diagnosis for this admission?: Yes Plan: Nephrology consulted. - Time Time Spent: 50 to 70 Minutes
[2018-01-10 06:38] LABS: ABSOLUTE LYMPHOCYTES# (MANUAL) 0.3 10^3/uL (0.5-4.7); ABSOLUTE MONOCYTES # (MANUAL) 0.4 10^3/uL (0.1-1.4); ABSOLUTE NEUTROPHILS# (MANUAL) 13.1 10^3/uL (1.7-8.2); BAND NEUTROPHILS % (MANUAL) 2 % (3-5); BASOPHILS % (MANUAL) 0 % (0-2); CARBON DIOXIDE 23 mmol/L (22-30); CHLORIDE 87 mmol/L (98-107); EOSINOPHILS % (MANUAL) 0 % (0-6); LYMPHOCYTES % (MANUAL) 2 % (13-45); MONOCYTES % (MANUAL) 3 % (3-13); SEGMENTED NEUTROPHILS % (MAN) 93 % (42-78); SODIUM 131.6 mmol/L (137-145); TOTAL CELLS COUNTED 100
[2018-01-10 06:40] LABS: ANISOCYTOSIS 1+; PLATELET COMMENT ADEQUATE; POIKILOCYTOSIS SLIGHT; POLYCHROMASIA 1+; TEAR DROP CELLS SLIGHT
[2018-01-10 06:45] LABS: ANION GAP 22 (5-19)
[2018-01-10] MEDS: HEPARIN SOD (PORCINE) 5,000 UNIT/ML 1 ML SYRINGE SUBCUT SCH ×3 (06:50→22:22)
[2018-01-10] MEDS ORDERED: NA PHOS,M-B/NA PHOS,DI-BA (ADULT) 133 ML ENEMA PR ONE (07:00)
[2018-01-10] MEDS ORDERED: METOPROLOL TARTRATE 50 MG TABLET PO SCH (10:00)
--- NOTE | 2018-01-10 10:02 | EKG REPORT ---
SEVERITY:- ABNORMAL ECG - ATRIAL FIBRILLATION LEFT BUNDLE BRANCH BLOCK INFERIOR Q WAVES, POSSIBLY DUE TO LBBB : Confirmed by: Stephen Quiñonez 10-Jan-2018 10:00:48
[2018-01-10] MEDS: MAGNESIUM OXIDE 400 MG TABLET PO SCH ×2 (11:33→17:37)
[2018-01-10] MEDS: ASPIRIN 81 MG TABLET, CHEWABLE PO SCH (11:33)
[2018-01-10] MEDS: CALCIUM ACETATE 667 MG CAPSULE PO SCH ×3 (11:34→17:37)
[2018-01-10] MEDS: TAMSULOSIN HCL 0.4 MG CAP.SR.24H PO SCH (11:34)
[2018-01-10] MEDS: CLONAZEPAM 1 MG TABLET PO SCH ×2 (11:34→17:37)
[2018-01-10] MEDS: CALCITRIOL 0.25 MCG CAPSULE PO SCH (11:35)
[2018-01-10] MEDS ORDERED: BISACODYL 10 MG SUPP.RECT PR PRN (11:46)
[2018-01-10] MEDS ORDERED: SODIUM POLYSTYRENE SULFONATE 15 GM/60 ML PO ONE (12:00)
[2018-01-10] MEDS: ONDANSETRON HCL INJ/PF 4 MG/2 ML SDV IV PRN ×2 (12:14→18:44)
[2018-01-10] MEDS: OXYCODONE-ACETAMINOPHEN 5-325 MG TABLET PO PRN ×2 (12:15→19:49)
--- NOTE | 2018-01-10 14:33 | Progress Note ---
Provider Note Provider Note: Seen on rounds this morning. Patient was admitted after midnight. Please see initial H&P for full assessment and plan. Spoke with patient about his condition. He is admitted for peritonitis and abdominal pain. He was given 1 dose of antibiotics in the ED upon admission. Dr. Eric, print line inspector, was consulted for further antibiotic recommendations. I spoken with nursing and they will contact Dr. Eric who is supposed to come in for the patient today. Patient has a history of peritoneal dialysis and currently is anuric. Patient tells me that he was admitted to another facility about a month and a half ago and had stayed there for a long time before being discharged with oxygen to home. He felt short of breath and came back to [facility] and was transferred directly to [place] at [facility]. Over there they weaned him off his oxygen and sent home without it. At this time is requesting pain medications-states he takes 10/325 at home. He also tells me that he has not had a bowel movement in a week. States he has tried [id number] medication but has not helped. At this time will add suppository and encourage the lactulose. Continue with IV antibiotics per print line inspector.
[2018-01-10] MEDS ORDERED: (PENDING PHARMACY ID) (Tiotropium Bromide [Spiriva Respimat] 1 PUFF) IH SCH (14:45)
[2018-01-10] MEDS ORDERED: (PENDING PHARMACY ID) (Fluticasone/Salmeterol [Advair Hfa 115-21 Mcg Inhaler] 2 PUFF) IH SCH (14:45)
[2018-01-10] MEDS: FOLIC ACID 1 MG TABLET PO SCH (15:33)
[2018-01-10] MEDS: LIDOCAINE 5% (700 MG) TRANSDERMAL ADH..PATCH TP SCH (15:34)
--- NOTE | 2018-01-10 16:26 | PDOC CONSULTATION ---
Consultation Consult Date: 01/10/18 Consult reason:: ESRD on PD with acute peritonitis History of Present Illness Admission Date/PCP: 01/10/18 02:40 CHAPARRITA VEGA MD History of Present Illness: JULIANNA MCKEON JR is a 72 year old male with a history of hypertension and ESRD on peritoneal dialysis is being admitted with history of nausea with abdominal pains constipation. Initial diagnosis in the ER after fluid removal shows he has got acute peritonitis. After discussions from the ER doctor with me he was had a rapid PD exchanges followed by instillation of IV vancomycin and ceftazidime into his peritoneal fluid. Patient seen today in the morning at the floor. He feels some better though he still has some pain. Bowel movements are still not active and he says his last bowel movement was approximately 5 days ago. He gives a history of a long rough patch in the last month or so. He was hospitalized he says for about 3-4 weeks in [facility] early of last month for pneumonia. He was then released home and soon after that he again relapsed and this time he was transferred to [facility] for a week. He states he was slowly getting back on his feet. His PD was being done by his son and [id number] as they live close by and that have been attaching him to the cycler every night before he goes to sleep. He says they have been doing appropriate precautions and doing exactly what he has been doing. However he had a lot of misgivings about the technique that he saw being used at [facility] as well as at [facility]. He thinks he might have gotten an infection because of improper techniques from those 2 hospitals.Labs and medications were reviewed with the patient. Past Medical History Cardiac Medical History: Reports: Atrial Fibrillation, Coronary Artery Disease, Hypertension-primary Denies: Myocardial Infarction Pulmonary Medical History: Denies: Asthma Neurological Medical History: Denies: Seizures Renal/ Medical History: Reports: End Stage Renal Disease, Secondary Hyperparathyroidism GI Medical History: Reports: Hiatal Hernia Denies: Hepatitis Musculoskeltal Medical History: Reports: Arthritis Psychiatric Medical History: Denies: Depression Hematology Medical History: Reports Anemia of Chronic Kidney Disease Past Surgical History Past Surgical History: Reports: Cardiac Catheterization Denies: Pacemaker Social History Smoking Status: Unknown if Ever Smoked Frequency of Alcohol Use: None Hx Recreational Drug Use: No Drugs: None Hx Prescription Drug Abuse: No - Advance Directive Resuscitation Status: Full Code Family History Parental Family History Reviewed: Yes - Negative for ESRD Children Family History Reviewed: No Sibling(s) Family History Reviewed.: No Medication/Allergy Home Medications: Aspirin [Aspirin 81 mg Chewable Tablet] 81 mg PO DAILY 04/07/15 Ferrous Sulfate [Feosol 325 mg Tablet] 975 mg PO BID 04/07/15 Folic Acid 1 mg PO DAILY 04/07/15 Calcium Acetate 667 mg PO MEALS 07/12/15 Amlodipine Besylate [Norvasc 5 mg Tablet] 5 mg PO DAILY 01/10/18 Cholecalciferol (Vitamin D3) [Vitamin D3 1000 Unit Tablet] 1,000 unit PO DAILY 01/10/18 Clonazepam [Klonopin 1 mg Tablet] 1 mg PO Q12HP PRN 01/10/18 Colchicine [Colchicine 0.6 mg Tablet] 0.6 mg PO DAILYP PRN 01/10/18 Fluticasone/Salmeterol [Advair HFA 115-21 mcg Inhaler] 2 puff IH Q12 01/10/18 Levothyroxine Sodium [Synthroid 0.112 mg Tablet] 0.112 mg PO Q6AM 01/10/18 Metoprolol Succinate [Toprol Xl 25 mg Tab.sr] 25 mg PO DAILY 01/10/18 Oxycodone HCl/Acetaminophen [Percocet 10-325 Mg Tablet] 1 each PO Q4HP PRN MDD 6 TABS 01/10/18 Tiotropium [place] [Spiriva Respimat] 1 puff IH Q12 01/10/18 Vitamin B Complex [B Complex] 1 each PO DAILY 01/10/18 Allergies/Adverse Reactions: Sulfa (Sulfonamide Antibiotics) Allergy (Verified 12/18/17 13:37) Review of Systems Constitutional: PRESENT: fatigue, weakness. ABSENT: anorexia, chills, fever(s) , headache(s), night sweats Nose, Mouth, and Throat: ABSENT: sore throat Cardiovascular: PRESENT: dyspnea on exertion. ABSENT: chest pain, edema, orthropnea Respiratory: ABSENT: hemoptysis Gastrointestinal: PRESENT: abdominal pain, bloating, constipation, nausea. ABSENT: diarrhea, dysphagia, heartburn, hematemesis, hematochezia, melena, vomiting Genitourinary: ABSENT: dysuria, hematuria Neurological: ABSENT: abnormal movements, abnormal speech, focal weakness, frequent falls Hematologic/Lymphatic: ABSENT: easy bruising, lymphadenopathy Physical Exam Vital Signs: Temp Pulse Resp BP Pulse Ox 97.9 F 99 18 134/77 H 93 01/10/18 12:13 01/10/18 12:13 01/10/18 12:13 01/10/18 12:13 01/10/18 12:13 Intake & Output 01/09/18 01/10/18 01/11/18 06:59 06:59 06:59 Intake Total 1800 2000 Output Total 1800 1800 Balance 0 200 Weight 59.1 kg General appearance: PRESENT: no acute distress Eye exam: PRESENT: conjunctiva pink, EOMI, PERRLA. ABSENT: nystagmus, scleral icterus Ear exam: PRESENT: normal external ear exam Neck exam: ABSENT: lymphadenopathy, meningismus, tenderness, thyromegaly, tracheal deviation Respiratory exam: PRESENT: clear to auscultation tata. ABSENT: crackles Cardiovascular exam: PRESENT: +S1, +S2, systolic murmur GI/Abdominal exam: PRESENT: normal bowel sounds, soft. ABSENT: firm, guarding, organomegaly, tenderness Extremities exam: ABSENT: pedal edema Neurological exam: PRESENT: alert, awake, oriented to person, oriented to place Skin exam: ABSENT: erythema, mottled, rash Results Laboratory Results: 01/10/18 05:57 01/10/18 05:57 01/10/18 01/10/18 05:57 05:57 WBC 13.8 H RBC 2.75 L Hgb 8.5 L Hct 26.2 L MCV 96 MCH 30.9 MCHC 32.3 RDW 17.7 H Plt Count 179 Seg Neutrophils % Not Reportable Lymphocytes % Not Reportable Monocytes % Not Reportable Eosinophils % Not Reportable Basophils % Not Reportable Absolute Neutrophils Not Reportable Absolute Lymphocytes Not Reportable Absolute Monocytes Not Reportable Absolute Eosinophils Not Reportable Absolute Basophils Not Reportable Sodium 131.6 L Potassium 5.5 H Chloride 87 L Carbon Dioxide 23 Anion Gap 22 H BUN 97 H Creatinine 6.88 H Est GFR ( Amer) 10 L Est GFR (Non-Af Amer) 8 L Glucose 80 Calcium 8.3 L Impressions: Abdomen/Pelvis CT 01/09/18 19:50 IMPRESSION: Moderate left pleural effusion. Cardiomegaly. Extensive atheromatous change. Slightly coarsened echotexture to the liver which could reflect early cirrhotic change. Catheter with the tip coiled in the right upper quadrant. Large amount of stool in the colon. TECHNICAL DOCUMENTATION: Quality ID # 436: Final reports with documentation of one or more dose reduction techniques (e.g., Automated exposure control, adjustment of the mA and/or kV according to patient size, use of iterative reconstruction technique) 2010 [employer]- All Rights Reserved Assessment & Plan - Diagnosis (1) Bacterial peritonitis Is this a current diagnosis for this admission?: Yes Plan: ESRD on peritoneal dialysis with no acute peritonitis. Patient has been hospitalized in 2 different places in the last month and has had misgivings about the techniques that he saw there. Patient has been dosed with IV ceftazidime and vancomycin intraperitoneally. Will continue on ceftazidime daily and vancomycin every other day. Will get a trough level on Tuesday and analyze dosing needs after that. Patient has not had peritonitis in the past and this is his first episode. Will monitor. (2) Constipation Qualifiers: Constipation type: unspecified constipation type Qualified Code(s): K59.00 - Constipation, unspecified Is this a current diagnosis for this admission?: Yes Plan: We will start him on lactulose along with the suppositories. We will see how he responds to that. (3) ESRD (end stage renal disease) Is this a current diagnosis for this admission?: Yes Plan: Peritoneal dialysis orders have been placed. Continue to monitor. No signs of fluid overload. Potassium is high and we will treat that for now and will monitor. Patient stable. (4) Hyperkalemia Plan: I would treat with Kayexalate for now and will monitor.
[2018-01-10] MEDS: LACTULOSE SYRUP 20 GM/30 ML UDCUP PO SCH (17:37)
[2018-01-10] MEDS: FERROUS SULFATE 325 MG TABLET PO SCH (17:37)
[2018-01-10] MEDS: MAG HYDROX/AL HYDROX/SIMETH SUSP 30 ML UDCUP PO PRN (17:43)
[2018-01-10] MEDS ORDERED: MORPHINE SULFATE 10 MG/ML INJ ONE (20:17)
[2018-01-10] MEDS: MORPHINE SULFATE 10 MG/ML INJ IV PRN (20:33)
[2018-01-10] MEDS: BISACODYL 10 MG SUPP.RECT PR SCH (22:21)
[2018-01-10] MEDS: ATORVASTATIN CALCIUM 10 MG TABLET PO SCH (22:22)
[2018-01-11] MEDS: ONDANSETRON HCL INJ/PF 4 MG/2 ML SDV IV PRN (02:57)
[2018-01-11 06:36] LABS: HEMATOCRIT 22.9 % (37.9-51.0); MEAN CORPUSCULAR HEMOGLOBIN 31.2 pg (27.0-33.4); MEAN CORPUSCULAR HGB CONC 32.8 g/dL (32.0-36.0); MEAN CORPUSCULAR VOLUME 95 fl (80-97); PLATELET COUNT 149 10^3/uL (150-450); RED BLOOD COUNT 2.41 10^6/uL (4.35-5.55); WHITE BLOOD COUNT 12.6 10^3/uL (4.0-10.5)
[2018-01-11] MEDS: HEPARIN SOD (PORCINE) 5,000 UNIT/ML 1 ML SYRINGE SUBCUT SCH ×3 (06:50→21:39)
[2018-01-11] MEDS: LEVOTHYROXINE SODIUM 0.1 MG TABLET PO SCH (06:51)
[2018-01-11 07:12] LABS: HEMOGLOBIN 7.5 g/dL (13.5-17.0)
[2018-01-11 07:15] LABS: ANION GAP 18 (5-19); BLOOD UREA NITROGEN 92 mg/dL (7-20); CALCIUM 7.6 mg/dL (8.4-10.2); CARBON DIOXIDE 28 mmol/L (22-30); CHLORIDE 85 mmol/L (98-107); GLUCOSE 123 mg/dL (75-110); SODIUM 130.8 mmol/L (137-145)
[2018-01-11 07:20] LABS: ABSOLUTE LYMPHOCYTES# (MANUAL) 0.4 10^3/uL (0.5-4.7); ABSOLUTE MONOCYTES # (MANUAL) 0.5 10^3/uL (0.1-1.4); ABSOLUTE NEUTROPHILS# (MANUAL) 11.7 10^3/uL (1.7-8.2); ANISOCYTOSIS 2+; BASOPHILS % (MANUAL) 0 % (0-2); EOSINOPHILS % (MANUAL) 0 % (0-6); HYPOCHROMASIA 1+; LYMPHOCYTES % (MANUAL) 3 % (13-45); MONOCYTES % (MANUAL) 4 % (3-13); OVALOCYTES SLIGHT; PLATELET COMMENT DECREASED; POIKILOCYTOSIS SLIGHT; POLYCHROMASIA SLIGHT; SEGMENTED NEUTROPHILS % (MAN) 93 % (42-78); TOTAL CELLS COUNTED 100
[2018-01-11 07:25] LABS: POTASSIUM 4.2 mmol/L (3.6-5.0)
[2018-01-11] MEDS ORDERED: EPOETIN ALFA INJ 20000 UNIT/1 ML VIAL (RENAL) SUBCUT ONE (09:00)
[2018-01-11] MEDS ORDERED: VANCOMYCIN HCL INJ 1000 MG VIAL IPER SCH (10:00)
[2018-01-11] MEDS ORDERED: AMLODIPINE BESYLATE 5 MG TABLET PO SCH (10:00)
[2018-01-11] MEDS: LACTULOSE SYRUP 20 GM/30 ML UDCUP PO SCH ×2 (10:06→17:11)
[2018-01-11] MEDS: BISACODYL 10 MG SUPP.RECT PR SCH ×2 (10:06→21:39)
[2018-01-11] MEDS: FERROUS SULFATE 325 MG TABLET PO SCH ×2 (10:34→17:35)
[2018-01-11] MEDS: ASPIRIN 81 MG TABLET, CHEWABLE PO SCH (10:34)
[2018-01-11] MEDS: TAMSULOSIN HCL 0.4 MG CAP.SR.24H PO SCH (10:35)
[2018-01-11] MEDS: FOLIC ACID 1 MG TABLET PO SCH (10:36)
[2018-01-11] MEDS: CLONAZEPAM 1 MG TABLET PO SCH ×2 (10:36→17:35)
[2018-01-11] MEDS: LIDOCAINE 5% (700 MG) TRANSDERMAL ADH..PATCH TP SCH (10:36)
[2018-01-11] MEDS: MAGNESIUM OXIDE 400 MG TABLET PO SCH ×2 (10:37→17:35)
[2018-01-11] MEDS: CALCIUM ACETATE 667 MG CAPSULE PO SCH ×3 (10:37→17:35)
[2018-01-11] MEDS: METOPROLOL SUCCINATE 25 MG TAB.SR.24H PO SCH ×2 (10:38→21:40)
[2018-01-11] MEDS: MULTIVIT-STRESS FORMULA/ZINC TABLET PO SCH (10:38)
[2018-01-11] MEDS: CALCITRIOL 0.25 MCG CAPSULE PO SCH (10:38)
[2018-01-11] MEDS: MAG HYDROX/AL HYDROX/SIMETH SUSP 30 ML UDCUP PO PRN ×2 (11:41→17:35)
[2018-01-11] MEDS ORDERED: NORMAL SALINE 250 ML IV PRN ×2 (12:01)
[2018-01-11] MEDS: CEFTAZIDIME INJ 1 GM VIAL IPER SCH (12:57)
--- NOTE | 2018-01-11 14:45 | PDOC PROGRESS REPORT ---
Subjective Progress Note for:: 01/11/18 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: Patient seen today. He is overall feeling better especially after he had a large bowel evacuation last night. He says he is the best he has felt in the last couple of weeks. His peritoneal fluid drainage is clearing. Abdominal pains are much better. No complaints of any fever or chills. He continues on Vanco and fotaz pending microbiology. Labs and medications were reviewed with the patient.Discussed briefly about home situation for getting day exchanges for installation of antibiotics and looks like that might be difficult. Physical Exam Vital Signs: Temp Pulse Resp BP Pulse Ox 97.3 F 80 16 110/60 100 01/11/18 12:02 01/11/18 12:02 01/11/18 12:02 01/11/18 12:02 01/11/18 12:02 Intake & Output 01/10/18 01/11/18 01/12/18 06:59 06:59 06:59 Intake Total 1800 9620 118 Output Total 1800 7700 Balance 0 1920 118 Weight 59.1 kg 59.4 kg General appearance: PRESENT: no acute distress Respiratory exam: PRESENT: clear to auscultation tata. ABSENT: crackles Cardiovascular exam: PRESENT: +S1, +S2, systolic murmur GI/Abdominal exam: PRESENT: normal bowel sounds, soft. ABSENT: firm, guarding, organomegaly, tenderness Extremities exam: PRESENT: pedal edema Neurological exam: PRESENT: alert, awake, oriented to person, oriented to place Skin exam: ABSENT: erythema, rash Results Laboratory Results: 01/11/18 05:33 01/11/18 05:33 01/11/18 01/11/18 01/11/18 05:33 05:33 13:23 WBC 12.6 H RBC 2.41 L Hgb 7.5 L Hct 22.9 L MCV 95 MCH 31.2 MCHC 32.8 RDW 18.0 H Plt Count 149 L Seg Neutrophils % Not Reportable Lymphocytes % Not Reportable Monocytes % Not Reportable Eosinophils % Not Reportable Basophils % Not Reportable Absolute Neutrophils Not Reportable Absolute Lymphocytes Not Reportable Absolute Monocytes Not Reportable Absolute Eosinophils Not Reportable Absolute Basophils Not Reportable Sodium 130.8 L Potassium 4.2 D Chloride 85 L Carbon Dioxide 28 Anion Gap 18 BUN 92 H Creatinine 7.14 H Est GFR ( Amer) 9 L Est GFR (Non-Af Amer) 8 L Glucose 123 H Calcium 7.6 L Blood Type A POSITIVE Antibody Screen NEGATIVE Impressions: Abdomen/Pelvis CT 01/09/18 19:50 IMPRESSION: Moderate left pleural effusion. Cardiomegaly. Extensive atheromatous change. Slightly coarsened echotexture to the liver which could reflect early cirrhotic change. Catheter with the tip coiled in the right upper quadrant. Large amount of stool in the colon. TECHNICAL DOCUMENTATION: Quality ID # 436: Final reports with documentation of one or more dose reduction techniques (e.g., Automated exposure control, adjustment of the mA and/or kV according to patient size, use of iterative reconstruction technique) 2010 [employer]- All Rights Reserved Assessment & Plan - Diagnosis (1) Bacterial peritonitis Is this a current diagnosis for this admission?: Yes Plan: Continue present antibiotic regimen and as patient clinically is improving. Await cultures from fluid. Further one needs to look into how we can continue on intraperitoneal antibiotics once he is discharged. Patient is quite fragile and febrile at home. He needs the help of his son to connect himself to the cycler every day at night. Further inquiries revealed that it might be difficult for him to do a day exchange during the daytime to instill IP antibiotics. So the other option would be to get a temporary IJ PermCath and have him undergo backup hemodialysis for the next couple of weeks until antibiotics is over and then put him back on PD. Will discuss with Dr. Cabrera hospitalist. (2) Constipation Qualifiers: Constipation type: unspecified constipation type Qualified Code(s): K59.00 - Constipation, unspecified Is this a current diagnosis for this admission?: Yes Plan: Finally resolved and patient feeling better. (3) ESRD (end stage renal disease) Is this a current diagnosis for this admission?: Yes Plan: Patient continued to do peritoneal dialysis in the form of CAPD. Fluid is looking clear. Continue present PD regimen. (4) Hyperkalemia Plan: Currently resolved. Monitor.
--- NOTE | 2018-01-11 15:27 | PDOC PROGRESS REPORT ---
Subjective Progress Note for:: 01/11/18 Subjective:: The patient is feeling quite weak today but in fact feels better than yesterday. His abdomen feels better and is not as distended. 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: ESRD PERITONITIS Anemia related to chronic kidney disease Physical Exam Vital Signs: Temp Pulse Resp BP Pulse Ox 97.3 F 80 16 110/60 100 01/11/18 12:02 01/11/18 12:02 01/11/18 12:02 01/11/18 12:02 01/11/18 12:02 Intake & Output 01/10/18 01/11/18 01/12/18 06:59 06:59 06:59 Intake Total 1800 9620 118 Output Total 1800 7700 Balance 0 1920 118 Weight 59.1 kg 59.4 kg General appearance: PRESENT: no acute distress, cooperative, thin, well- developed Eye exam: PRESENT: conjunctiva pale. ABSENT: scleral icterus Ear exam: PRESENT: normal external ear exam Mouth exam: PRESENT: dry mucosa Neck exam: ABSENT: carotid bruit, lymphadenopathy Respiratory exam: PRESENT: clear to auscultation tata, symmetrical, unlabored. ABSENT: rales, rhonchi, wheezes Cardiovascular exam: PRESENT: RRR, +S1, +S2 GI/Abdominal exam: PRESENT: distended, normal bowel sounds, soft. ABSENT: tenderness Extremities exam: PRESENT: other - Decreased muscle mass Neurological exam: PRESENT: alert, awake, oriented to person, oriented to place , oriented to situation, CN II-XII grossly intact Psychiatric exam: PRESENT: appropriate affect, normal mood. ABSENT: anxious Focused psych exam: ABSENT: delusional, paranoid, restlessness Results Laboratory Results: 01/11/18 05:33 01/11/18 05:33 01/11/18 01/11/18 01/11/18 05:33 05:33 13:23 WBC 12.6 H RBC 2.41 L Hgb 7.5 L Hct 22.9 L MCV 95 MCH 31.2 MCHC 32.8 RDW 18.0 H Plt Count 149 L Seg Neutrophils % Not Reportable Lymphocytes % Not Reportable Monocytes % Not Reportable Eosinophils % Not Reportable Basophils % Not Reportable Absolute Neutrophils Not Reportable Absolute Lymphocytes Not Reportable Absolute Monocytes Not Reportable Absolute Eosinophils Not Reportable Absolute Basophils Not Reportable Sodium 130.8 L Potassium 4.2 D Chloride 85 L Carbon Dioxide 28 Anion Gap 18 BUN 92 H Creatinine 7.14 H Est GFR ( Amer) 9 L Est GFR (Non-Af Amer) 8 L Glucose 123 H Calcium 7.6 L Blood Type A POSITIVE Antibody Screen NEGATIVE Impressions: Abdomen/Pelvis CT 01/09/18 19:50 IMPRESSION: Moderate left pleural effusion. Cardiomegaly. Extensive atheromatous change. Slightly coarsened echotexture to the liver which could reflect early cirrhotic change. Catheter with the tip coiled in the right upper quadrant. Large amount of stool in the colon. TECHNICAL DOCUMENTATION: Quality ID # 436: Final reports with documentation of one or more dose reduction techniques (e.g., Automated exposure control, adjustment of the mA and/or kV according to patient size, use of iterative reconstruction technique) 2010 [employer]- All Rights Reserved Assessment & Plan - Diagnosis (1) Bacterial peritonitis Is this a current diagnosis for this admission?: Yes Plan: The patient is on vancomycin and ceftazidime. Dr. Eric is adjusting medications for his renal failure. His medications are being administered with his peritoneal dialysis. The peritoneal fluid is no growth at 24 hours. The patient does feel better at this time. (2) ESRD (end stage renal disease) Is this a current diagnosis for this admission?: Yes Plan: He is continuing peritoneal dialysis. Dr. Eric is managing his dialysis. (3) Anemia due to chronic kidney disease treated with erythropoietin Is this a current diagnosis for this admission?: Yes Plan: The patient does receive erythropoietin weekly. Dr. Eric is supervising that medication. He is already on iron therapy. Because his hemoglobin has dropped from 8.5-7.5 we will administer 1 unit of packed red blood cells today. Dr. Eric is aware and in agreement. (4) Constipation Qualifiers: Constipation type: unspecified constipation type Qualified Code(s): K59.00 - Constipation, unspecified Is this a current diagnosis for this admission?: Yes Plan: Staff reports that the patient has had a very aggressive intervention for his constipation and it has been very effective. We will continue to monitor for recurrence. - Time Time Spent with patient: 25-34 minutes Medications reviewed and adjusted accordingly: Yes Anticipated discharge: Home - Plan Summary Plan Summary: As above. If dialysis goes well today we anticipate possible discharge tomorrow.
[2018-01-11] MEDS: OXYCODONE-ACETAMINOPHEN 5-325 MG TABLET PO PRN (21:41)
[2018-01-11] MEDS: ATORVASTATIN CALCIUM 10 MG TABLET PO SCH (21:42)
[2018-01-11 22:22] LABS: HEMATOCRIT 28.8 % (37.9-51.0); MEAN CORPUSCULAR HGB CONC 33.2 g/dL (32.0-36.0); MEAN CORPUSCULAR VOLUME 94 fl (80-97); PLATELET COUNT 165 10^3/uL (150-450); RED BLOOD COUNT 3.08 10^6/uL (4.35-5.55); RED CELL DISTRIBUTION WIDTH 18.2 % (11.5-14.0); WHITE BLOOD COUNT 13.6 10^3/uL (4.0-10.5)
[2018-01-11 22:41] LABS: ABSOLUTE LYMPHOCYTES# (MANUAL) 0.7 10^3/uL (0.5-4.7); ABSOLUTE MONOCYTES # (MANUAL) 1.1 10^3/uL (0.1-1.4); ABSOLUTE NEUTROPHILS# (MANUAL) 11.7 10^3/uL (1.7-8.2); BASOPHILS % (MANUAL) 0 % (0-2); EOSINOPHILS % (MANUAL) 1 % (0-6); LYMPHOCYTES % (MANUAL) 5 % (13-45); MONOCYTES % (MANUAL) 8 % (3-13); SEGMENTED NEUTROPHILS % (MAN) 86 % (42-78); TOTAL CELLS COUNTED 100
[2018-01-11 22:43] LABS: ANISOCYTOSIS 2+; PLATELET COMMENT ADEQUATE; POIKILOCYTOSIS SLIGHT; TOXIC GRANULATION SLIGHT
[2018-01-11 22:51] LABS: HEMOGLOBIN 9.6 g/dL (13.5-17.0)
[2018-01-12 06:11] LABS: ABSOLUTE RETICS # 0.084 10^6/uL (0.028-0.122); HEMATOCRIT 25.4 % (37.9-51.0); HEMOGLOBIN 8.6 g/dL (13.5-17.0); MEAN CORPUSCULAR HEMOGLOBIN 31.6 pg (27.0-33.4); MEAN CORPUSCULAR HGB CONC 33.7 g/dL (32.0-36.0); MEAN CORPUSCULAR VOLUME 94 fl (80-97); PLATELET COUNT 135 10^3/uL (150-450); RED BLOOD COUNT 2.71 10^6/uL (4.35-5.55); RED CELL DISTRIBUTION WIDTH 18.4 % (11.5-14.0); WHITE BLOOD COUNT 9.9 10^3/uL (4.0-10.5)
[2018-01-12 06:19] LABS: IRON(TIBC) 31.7 ug/dL (49-181)
[2018-01-12] MEDS: HEPARIN SOD (PORCINE) 5,000 UNIT/ML 1 ML SYRINGE SUBCUT SCH ×3 (06:46→21:55)
[2018-01-12] MEDS: LEVOTHYROXINE SODIUM 0.1 MG TABLET PO SCH (06:47)
[2018-01-12 06:48] LABS: ABSOLUTE LYMPHOCYTES# (MANUAL) 0.3 10^3/uL (0.5-4.7); ABSOLUTE MONOCYTES # (MANUAL) 0.4 10^3/uL (0.1-1.4); ABSOLUTE NEUTROPHILS# (MANUAL) 9.1 10^3/uL (1.7-8.2); ANISOCYTOSIS 1+; BASOPHILS % (MANUAL) 0 % (0-2); EOSINOPHILS % (MANUAL) 1 % (0-6); LYMPHOCYTES % (MANUAL) 3 % (13-45); MONOCYTES % (MANUAL) 4 % (3-13); PLATELET COMMENT ADEQUATE; PLATELET GIANT PRESENT; POLYCHROMASIA SLIGHT; SCHISTOCYTES SLIGHT; SEGMENTED NEUTROPHILS % (MAN) 92 % (42-78); TOTAL CELLS COUNTED 100; TOXIC GRANULATION 1+
[2018-01-12] MEDS ORDERED: ACETAMINOPHEN 325 MG TABLET PO PRN (07:55)
[2018-01-12 08:47] LABS: FOLATE > 20.00 ng/mL (>2.76)
[2018-01-12] MEDS: METOPROLOL SUCCINATE 25 MG TAB.SR.24H PO SCH ×2 (10:00→21:50)
[2018-01-12] MEDS: CEFTAZIDIME INJ 1 GM VIAL IPER SCH (10:01)
[2018-01-12] MEDS: LACTULOSE SYRUP 20 GM/30 ML UDCUP PO SCH ×2 (10:09→17:07)
[2018-01-12] MEDS: CALCIUM ACETATE 667 MG CAPSULE PO SCH ×3 (10:09→17:07)
[2018-01-12] MEDS: TAMSULOSIN HCL 0.4 MG CAP.SR.24H PO SCH (10:10)
[2018-01-12] MEDS: CALCITRIOL 0.25 MCG CAPSULE PO SCH (10:15)
[2018-01-12] MEDS: MAGNESIUM OXIDE 400 MG TABLET PO SCH ×2 (10:15→17:07)
[2018-01-12] MEDS: CLONAZEPAM 1 MG TABLET PO SCH ×2 (10:16→17:06)
[2018-01-12] MEDS: FOLIC ACID 1 MG TABLET PO SCH (10:16)
[2018-01-12] MEDS: MULTIVIT-STRESS FORMULA/ZINC TABLET PO SCH (10:16)
[2018-01-12] MEDS: ASPIRIN 81 MG TABLET, CHEWABLE PO SCH (10:16)
[2018-01-12] MEDS: LIDOCAINE 5% (700 MG) TRANSDERMAL ADH..PATCH TP SCH (10:17)
[2018-01-12] MEDS: FERROUS SULFATE 325 MG TABLET PO SCH ×2 (10:17→17:02)
[2018-01-12] MEDS: BISACODYL 10 MG SUPP.RECT PR SCH ×2 (10:19→21:56)
--- NOTE | 2018-01-12 10:25 | PDOC PROGRESS REPORT ---
Subjective Progress Note for:: 01/12/18 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: Patient seen this morning. He generally feeling better. Abdominal pains are markedly improved. PD fluid drain is also markedly clearing.However he mentions about orthostasis this morning. No history of any chest pains shortness of breath fever or chills. Labs and medications were reviewed with the patient. Discussions were done with the treating nurse. Physical Exam Vital Signs: Temp Pulse Resp BP Pulse Ox 97.4 F 92 18 89/64 L 97 01/12/18 08:19 01/12/18 08:19 01/12/18 08:19 01/12/18 09:51 01/12/18 08:19 Intake & Output 01/11/18 01/12/18 01/13/18 06:59 06:59 06:59 Intake Total 9620 6834 Output Total 7700 7400 Balance 1920 -566 Weight 59.4 kg 59 kg General appearance: PRESENT: no acute distress Respiratory exam: PRESENT: clear to auscultation tata. ABSENT: crackles Cardiovascular exam: PRESENT: +S1, +S2, systolic murmur GI/Abdominal exam: PRESENT: normal bowel sounds, soft. ABSENT: firm, guarding, organomegaly, tenderness Extremities exam: ABSENT: pedal edema Neurological exam: PRESENT: alert, awake, oriented to person, oriented to place Skin exam: ABSENT: erythema, rash Results Laboratory Results: 01/12/18 05:01 01/11/18 05:33 01/11/18 01/11/18 01/12/18 13:23 22:10 05:01 WBC 13.6 H 9.9 RBC 3.08 L 2.71 L Hgb 9.6 L D 8.6 L Hct 28.8 L 25.4 L MCV 94 94 MCH 31.0 31.6 MCHC 33.2 33.7 RDW 18.2 H 18.4 H Plt Count 165 135 L Seg Neutrophils % Not Reportable Not Reportable Lymphocytes % Not Reportable Not Reportable Monocytes % Not Reportable Not Reportable Eosinophils % Not Reportable Not Reportable Basophils % Not Reportable Not Reportable Absolute Neutrophils Not Reportable Not Reportable Absolute Lymphocytes Not Reportable Not Reportable Absolute Monocytes Not Reportable Not Reportable Absolute Eosinophils Not Reportable Not Reportable Absolute Basophils Not Reportable Not Reportable Retic Count (auto) 3.10 H Absolute Retic 0.084 Iron TIBC % Saturation Ferritin Vitamin B12 Folate Blood Type A POSITIVE Antibody Screen NEGATIVE 01/12/18 05:01 WBC RBC Hgb Hct MCV MCH MCHC RDW Plt Count Seg Neutrophils % Lymphocytes % Monocytes % Eosinophils % Basophils % Absolute Neutrophils Absolute Lymphocytes Absolute Monocytes Absolute Eosinophils Absolute Basophils Retic Count (auto) Absolute Retic Iron 31.7 L TIBC 158 L % Saturation 20 Ferritin 1600.00 H Vitamin B12 980.0 H Folate > 20.00 Blood Type Antibody Screen Impressions: Abdomen/Pelvis CT 01/09/18 19:50 IMPRESSION: Moderate left pleural effusion. Cardiomegaly. Extensive atheromatous change. Slightly coarsened echotexture to the liver which could reflect early cirrhotic change. Catheter with the tip coiled in the right upper quadrant. Large amount of stool in the colon. TECHNICAL DOCUMENTATION: Quality ID # 436: Final reports with documentation of one or more dose reduction techniques (e.g., Automated exposure control, adjustment of the mA and/or kV according to patient size, use of iterative reconstruction technique) 2010 [employer]- All Rights Reserved Assessment & Plan - Diagnosis (1) Bacterial peritonitis Is this a current diagnosis for this admission?: Yes Plan: Continue present antibiotic regimen and as patient clinically is improving. So far the fluid cultures are negative.Patient clinically looking much better. He could be discharged home and he can continue antibiotics as an outpatient once he is hemodynamically stable. The nurse at [facility] has talked with his son who lives close by was been willing to be trained to do a daytime exchange and instill antibiotics. Once that is done I do not see any reason why the patient cannot be discharged home care of his son. Since he is complaining of orthostasis I would like to have him more stable before his discharge. (2) Constipation Qualifiers: Constipation type: unspecified constipation type Qualified Code(s): K59.00 - Constipation, unspecified Is this a current diagnosis for this admission?: Yes Plan: Resolved. (3) ESRD (end stage renal disease) Is this a current diagnosis for this admission?: Yes Plan: Patient continued to do peritoneal dialysis in the form of CAPD. Fluid is looking clear. Continue present PD regimen.
[2018-01-12] MEDS: MAG HYDROX/AL HYDROX/SIMETH SUSP 30 ML UDCUP PO PRN (13:52)
--- NOTE | 2018-01-12 20:53 | PDOC PROGRESS REPORT ---
Subjective Progress Note for:: 01/12/18 Subjective:: The patient is feeling quite weak today but in fact feels better than yesterday. His abdomen feels better and is not as distended. 01/12/2018-the patient actually feels slightly worse than yesterday. He is uncomfortable in general. His stomach, despite relief of his constipation, still does not feel back at baseline. He also noticed that his feet were reddened today. 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: ESRD PERITONITIS Physical Exam Vital Signs: Temp Pulse Resp BP Pulse Ox 97.9 F 90 16 110/57 L 100 01/12/18 17:00 01/12/18 17:00 01/12/18 17:00 01/12/18 17:00 01/12/18 17:00 Intake & Output 01/11/18 01/12/18 01/13/18 06:59 06:59 06:59 Intake Total 9620 6834 3218 Output Total 7700 7400 3700 Balance 6239 -566 -482 Weight 59.4 kg 59 kg 59 kg General appearance: PRESENT: no acute distress, cooperative, well-developed Eye exam: PRESENT: conjunctiva pale. ABSENT: scleral icterus Mouth exam: PRESENT: dry mucosa Respiratory exam: PRESENT: clear to auscultation tata, symmetrical, unlabored. ABSENT: accessory muscle use, rales, rhonchi, wheezes Cardiovascular exam: PRESENT: irregular rhythm GI/Abdominal exam: PRESENT: normal bowel sounds, soft. ABSENT: tenderness Extremities exam: PRESENT: other - The toes were slightly cool and the dorsum of the feet were in fact slightly erythematous. The erythema was blanching and his refill was appropriate. Psychiatric exam: PRESENT: appropriate affect, normal mood Skin exam: PRESENT: other - Chronic pigment deposition lower extremities Results Laboratory Results: 01/12/18 05:01 01/11/18 05:33 01/11/18 01/12/18 01/12/18 22:10 05:01 05:01 WBC 13.6 H 9.9 RBC 3.08 L 2.71 L Hgb 9.6 L D 8.6 L Hct 28.8 L 25.4 L MCV 94 94 MCH 31.0 31.6 MCHC 33.2 33.7 RDW 18.2 H 18.4 H Plt Count 165 135 L Seg Neutrophils % Not Reportable Not Reportable Lymphocytes % Not Reportable Not Reportable Monocytes % Not Reportable Not Reportable Eosinophils % Not Reportable Not Reportable Basophils % Not Reportable Not Reportable Absolute Neutrophils Not Reportable Not Reportable Absolute Lymphocytes Not Reportable Not Reportable Absolute Monocytes Not Reportable Not Reportable Absolute Eosinophils Not Reportable Not Reportable Absolute Basophils Not Reportable Not Reportable Retic Count (auto) 3.10 H Absolute Retic 0.084 Iron 31.7 L TIBC 158 L % Saturation 20 Ferritin 1600.00 H Vitamin B12 980.0 H Folate > 20.00 Impressions: Abdomen/Pelvis CT 01/09/18 19:50 IMPRESSION: Moderate left pleural effusion. Cardiomegaly. Extensive atheromatous change. Slightly coarsened echotexture to the liver which could reflect early cirrhotic change. Catheter with the tip coiled in the right upper quadrant. Large amount of stool in the colon. TECHNICAL DOCUMENTATION: Quality ID # 436: Final reports with documentation of one or more dose reduction techniques (e.g., Automated exposure control, adjustment of the mA and/or kV according to patient size, use of iterative reconstruction technique) 2010 [employer]- All Rights Reserved Assessment & Plan - Diagnosis (1) Bacterial peritonitis Is this a current diagnosis for this admission?: Yes Plan: The patient is on vancomycin and ceftazidime. Dr. Eric is adjusting medications for his renal failure. His medications are being administered with his peritoneal dialysis. The peritoneal fluid is no growth at 24 hours. The patient does feel better at this time. 01/12/2018-he did well with dialysis today. He will remain on vancomycin and ceftazidime. I will discuss with nephrology how long they wish to continue the antibiotic therapy that is infused with his peritoneal dialysis it. (2) ESRD (end stage renal disease) Is this a current diagnosis for this admission?: Yes Plan: He is continuing peritoneal dialysis. Dr. Eric is managing his dialysis. 01/12/2018-continue peritoneal dialysis per nephrology. (3) Anemia due to chronic kidney disease treated with erythropoietin Is this a current diagnosis for this admission?: Yes Plan: The patient does receive erythropoietin weekly. Dr. Eric is supervising that medication. He is already on iron therapy. Because his hemoglobin has dropped from 8.5-7.5 we will administer 1 unit of packed red blood cells today. Dr. Eric is aware and in agreement. 01/12/2018-the patient did receive 1 unit of packed red blood cells yesterday. His hemoglobin posttransfusion was 9.6 and is down to 8.5 today. I will recheck it again tomorrow. He continues on iron supplement and erythropoietin. (4) Constipation Qualifiers: Constipation type: unspecified constipation type Qualified Code(s): K59.00 - Constipation, unspecified Is this a current diagnosis for this admission?: Yes Plan: Staff reports that the patient has had a very aggressive intervention for his constipation and it has been very effective. We will continue to monitor for recurrence. 01/12/2018-the patient's bowels have not quite settled. We did start a trial of Metamucil daily. We did discuss stool softeners and laxatives that he should avoid considering his renal failure. (5) Venous insufficiency of both lower extremities Is this a current diagnosis for this admission?: Yes Plan: The discoloration in his feet is most likely due to venous insufficiency. 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 I explained to him that having his feet in a dependent position after keeping them elevated in bed for several days will likely cause this discoloration. I suggested that if he elevated his feet this would go away in approximately 2030 minutes. I did reassure him that this is not an acute concern. He may benefit from compression stocking therapy. - Time Time Spent with patient: 25-34 minutes Medications reviewed and adjusted accordingly: Yes Anticipated discharge: Home
[2018-01-12] MEDS: PHARMACY COMMUNICATION ORDER MC SCH (21:50)
[2018-01-12] MEDS: ATORVASTATIN CALCIUM 10 MG TABLET PO SCH (21:55)
[2018-01-13 06:14] LABS: ABSOLUTE LYMPHOCYTES (AUTO) 0.5 10^3/uL (0.5-4.7); ABSOLUTE MONOCYTES (AUTO) 0.6 10^3/uL (0.1-1.4); BASOPHILS % (AUTO) 0.6 % (0-2); EOSINOPHILS % (AUTO) 0.6 % (0-6); HEMATOCRIT 25.8 % (37.9-51.0); HEMOGLOBIN 8.6 g/dL (13.5-17.0); LYMPHOCYTES % (AUTO) 5.8 % (13-45); MEAN CORPUSCULAR HEMOGLOBIN 31.4 pg (27.0-33.4); MEAN CORPUSCULAR HGB CONC 33.3 g/dL (32.0-36.0); MEAN CORPUSCULAR VOLUME 94 fl (80-97); MONOCYTES % (AUTO) 7.5 % (3-13); PLATELET COUNT 122 10^3/uL (150-450); RED BLOOD COUNT 2.73 10^6/uL (4.35-5.55); SEGMENTED NEUTROPHILS % (AUTO) 85.5 % (42-78); TOTAL CELLS COUNTED % (AUTO) 100 %; WHITE BLOOD COUNT 8.1 10^3/uL (4.0-10.5)
[2018-01-13] MEDS: LEVOTHYROXINE SODIUM 0.1 MG TABLET PO SCH (06:20)
[2018-01-13] MEDS: HEPARIN SOD (PORCINE) 5,000 UNIT/ML 1 ML SYRINGE SUBCUT SCH ×3 (06:20→21:03)
[2018-01-13 06:33] LABS: ALBUMIN 2.1 g/dL (3.5-5.0); ANION GAP 15 (5-19); BLOOD UREA NITROGEN 83 mg/dL (7-20); CALCIUM 7.5 mg/dL (8.4-10.2); CARBON DIOXIDE 29 mmol/L (22-30); CHLORIDE 86 mmol/L (98-107); GLUCOSE 87 mg/dL (75-110); PHOSPHORUS 4.4 mg/dL (2.5-4.5); POTASSIUM 4.4 mmol/L (3.6-5.0); SODIUM 130.3 mmol/L (137-145)
[2018-01-13 06:34] LABS: VANCOMYCIN,TROUGH 16.4 ug/mL (5.0-20.0)
[2018-01-13] MEDS ORDERED: TAMSULOSIN HCL 0.4 MG CAP.SR.24H PO SCH (08:00)
[2018-01-13] MEDS: CALCIUM ACETATE 667 MG CAPSULE PO SCH ×3 (08:54→17:45)
[2018-01-13] MEDS: GENTAMICIN SULFATE 0.1% CREAM 15 GM TP SCH (09:39)
[2018-01-13] MEDS: LACTULOSE SYRUP 20 GM/30 ML UDCUP PO SCH ×2 (09:40→21:11)
[2018-01-13] MEDS: METOPROLOL SUCCINATE 25 MG TAB.SR.24H PO SCH ×2 (09:40→21:04)
[2018-01-13] MEDS: ASPIRIN 81 MG TABLET, CHEWABLE PO SCH (09:41)
[2018-01-13] MEDS: CALCITRIOL 0.25 MCG CAPSULE PO SCH (09:41)
[2018-01-13] MEDS: FERROUS SULFATE 325 MG TABLET PO SCH ×2 (09:41→17:46)
[2018-01-13] MEDS: MULTIVIT-STRESS FORMULA/ZINC TABLET PO SCH (09:41)
[2018-01-13] MEDS: MAGNESIUM OXIDE 400 MG TABLET PO SCH ×2 (09:42→17:45)
[2018-01-13] MEDS: FOLIC ACID 1 MG TABLET PO SCH (09:42)
[2018-01-13] MEDS: CLONAZEPAM 1 MG TABLET PO SCH ×2 (09:42→17:45)
[2018-01-13] MEDS: BISACODYL 10 MG SUPP.RECT PR SCH ×2 (09:43→21:03)
[2018-01-13] MEDS: LIDOCAINE 5% (700 MG) TRANSDERMAL ADH..PATCH TP SCH (09:43)
--- NOTE | 2018-01-13 09:47 | PDOC DISCHARGE SUMMARY ---
General - Admit/Disc Date/PCP Admission Date/Primary Care Provider: 01/10/18 02:40 CHAPARRITA VEGA MD Discharge Date: 01/13/18 - Discharge Diagnosis (1) Bacterial peritonitis Is this a current diagnosis for this admission?: Yes Summary: The patient has been receiving ceftazidime and vancomycin in his peritoneal dialysis fluid. His peritoneal fluid culture was negative at [address] Eric wants him to continue. I do have a call into Dr. Eric to obtain information about length of treatment. He will continue with his peritoneal dialysis at home as before. (2) ESRD (end stage renal disease) Is this a current diagnosis for this admission?: Yes Summary: The patient was seen by Dr. Eric while in the hospital. He has continued his peritoneal dialysis. Antibiotic therapy will be determined when I speak to Dr. Eric. The patient is anuric and so I have discontinued his Flomax. (3) Anemia due to chronic kidney disease treated with erythropoietin Is this a current diagnosis for this admission?: Yes Summary: The patient did require 1 unit of packed red blood cells during his hospitalization. Nephrology has him on erythropoietin therapy and he is on iron supplement. Nephrology will continue to follow his anemia. (4) Constipation Is this a current diagnosis for this admission?: Yes Summary: The patient had a large evacuation of stool 3 days ago. Constipation is a chronic issue for him. He will try Metamucil for a while. I have also suggested MiraLAX. There are certain laxative that end-stage kidney patient's should avoid. I will defer to Dr. Eric for this. (5) Venous insufficiency of both lower extremities Is this a current diagnosis for this admission?: Yes Summary: As per yesterday's note the patient does have chronic lower extremity edema with chronic venous insufficiency. Leg elevation and compression stockings might be of benefit. Unfortunately he is dependent on his dialysis for fluid removal. I did explain that the chronic pigment deposition does not improve. (6) Hypothyroid Is this a current diagnosis for this admission?: Yes Summary: Continue current dose of levothyroxine. (7) Coronary artery disease Is this a current diagnosis for this admission?: Yes Summary: He did not exhibit any cardiac symptoms. He will continue his amlodipine and aspirin therapy. - Additional Information Discharge Diet: Cardiac - Renal and control carbohydrates. Discharge Activity: Activity As Tolerated, Balance Activity w/Rest Home Medications: Aspirin [Aspirin 81 mg Chewable Tablet] 81 mg PO DAILY 04/07/15 Ferrous Sulfate [Feosol 325 mg Tablet] 975 mg PO BID 04/07/15 Folic Acid 1 mg PO DAILY 04/07/15 Calcium Acetate 667 mg PO MEALS 07/12/15 Amlodipine Besylate [Norvasc 5 mg Tablet] 5 mg PO DAILY 01/10/18 Cholecalciferol (Vitamin D3) [Vitamin D3 1000 Unit Tablet] 1,000 unit PO DAILY 01/10/18 Clonazepam [Klonopin 1 mg Tablet] 1 mg PO Q12HP PRN 01/10/18 Colchicine [Colchicine 0.6 mg Tablet] 0.6 mg PO DAILYP PRN 01/10/18 Fluticasone/Salmeterol [Advair HFA 115-21 mcg Inhaler] 2 puff IH Q12 01/10/18 Levothyroxine Sodium [Synthroid 0.112 mg Tablet] 0.112 mg PO Q6AM 01/10/18 Metoprolol Succinate [Toprol Xl 25 mg Tab.sr] 25 mg PO DAILY 01/10/18 Oxycodone HCl/Acetaminophen [Percocet 10-325 Mg Tablet] 1 each PO Q4HP PRN MDD 6 TABS 01/10/18 Tiotropium [place] [Spiriva Respimat] 1 puff IH Q12 01/10/18 Vitamin B Complex [B Complex] 1 each PO DAILY 01/10/18 History of Present Illness Patient complains of: Abdominal pain and constipation History of Present Illness: JULIANNA MCKEON JR is a 72 year old male with a complex medical history of atrial fibrillation, coronary artery disease, hypertension, asthma, end-stage kidney disease and hypothyroidism presented with 4 days of nausea, vomiting, constipation and abdominal pain. Peritoneal fluid was submitted to the lab and it had greater than [address] scan of the abdomen also revealed obstipation. He was started on vancomycin and ceftazidime infused with his peritoneal dialysate. He had a significant evacuation of stool. He has been receiving ongoing peritoneal dialysis. Hospital Course Hospital Course: The patient had a fairly uneventful hospitalization. Vancomycin and ceftazidime are being utilized with his peritoneal dialysis. They are infused into the abdominal cavity. He will continue this therapy as an outpatient. His peritoneal fluid had greater than 2000 white blood cells. The culture is no growth at 3 days. The patient had an aggressive bowel regimen and he had a large evacuation of stool several days ago. He is feeling better. He still worries about chronic constipation. We are starting daily Metamucil. I have also suggested MiraLAX. Because of his end-stage kidney disease I believe there are several laxatives that he should avoid. I did suggest he confirm this with his steam pressure chamber operator. The patient had a significant drop in his hemoglobin during this hospitalization area it did require 1 unit of packed red blood cells. He is already on iron therapy as well as erythropoietin per the steam pressure chamber operator. He does have a history of asthma/COPD. He continued on his home inhaler regimen. He is also on home oxygen. He has requested a new pulse oximeter for home use. The patient reports a history of diet-controlled diabetes. Because he does receive steroid therapy intermittently and because he wants to maintain good control he has asked for a home glucometer. The patient will be discharged home. He will continue his dialysis as before. He should follow-up with primary care as well as nephrology. Physical Exam Vital Signs: Temp Pulse Resp BP Pulse Ox 97.5 F 90 14 128/68 H 96 01/13/18 06:00 01/13/18 08:16 01/13/18 06:00 01/13/18 08:16 01/13/18 06:00 Intake & Output 01/12/18 01/13/18 01/14/18 06:59 06:59 06:59 Intake Total 6834 4836 1500 Output Total 7400 5200 1500 Balance -566 -364 0 Weight 59 kg 58.6 kg 57.8 kg General appearance: PRESENT: no acute distress, cooperative, well-developed Eye exam: PRESENT: conjunctiva pale. ABSENT: scleral icterus Neck exam: ABSENT: carotid bruit, lymphadenopathy, tenderness Respiratory exam: PRESENT: clear to auscultation tata, symmetrical, unlabored. ABSENT: rales, stridor, wheezes Cardiovascular exam: PRESENT: irregular rhythm GI/Abdominal exam: PRESENT: normal bowel sounds, soft. ABSENT: firm, guarding, tenderness Extremities exam: PRESENT: pedal edema. ABSENT: calf tenderness Musculoskeletal exam: PRESENT: ambulatory Neurological exam: PRESENT: alert, awake, oriented to person, oriented to place , oriented to time, oriented to situation, CN II-XII grossly intact Psychiatric exam: PRESENT: appropriate affect, normal mood Skin exam: PRESENT: other - Mild erythema with chronic pigment deposition on both legs consistent with his venous insufficiency. Results Laboratory Results: 01/13/18 06:00 01/13/18 06:00 01/13/18 01/13/18 06:00 06:00 WBC 8.1 RBC 2.73 L Hgb 8.6 L Hct 25.8 L MCV 94 MCH 31.4 MCHC 33.3 RDW 18.0 H Plt Count 122 L Seg Neutrophils % 85.5 H Lymphocytes % 5.8 L Monocytes % 7.5 Eosinophils % 0.6 Basophils % 0.6 Absolute Neutrophils 7.0 Absolute Lymphocytes 0.5 Absolute Monocytes 0.6 Absolute Eosinophils 0.0 Absolute Basophils 0.0 Sodium 130.3 L Potassium 4.4 Chloride 86 L Carbon Dioxide 29 Anion Gap 15 BUN 83 H Creatinine 7.14 H Est GFR ( Amer) 9 L Est GFR (Non-Af Amer) 8 L Glucose 87 Calcium 7.5 L Phosphorus 4.4 Magnesium 2.9 H Albumin 2.1 L Impressions: Abdomen/Pelvis CT 01/09/18 19:50 IMPRESSION: Moderate left pleural effusion. Cardiomegaly. Extensive atheromatous change. Slightly coarsened echotexture to the liver which could reflect early cirrhotic change. Catheter with the tip coiled in the right upper quadrant. Large amount of stool in the colon. TECHNICAL DOCUMENTATION: Quality ID # 436: Final reports with documentation of one or more dose reduction techniques (e.g., Automated exposure control, adjustment of the mA and/or kV according to patient size, use of iterative reconstruction technique) 2010 [employer]- All Rights Reserved Qualifiers - * PATIENT BEING DISCHARGED WITH ANY OF THE FOLLOWING DIAGNOSIS: No Plan Discharge Plan: As outlined above Time Spent: Greater than 30 Minutes
[2018-01-13] MEDS ORDERED: PSYLLIUM SEED-SF 5.85 GM PACKET PO SCH (10:00)
--- NOTE | 2018-01-13 10:09 | Progress Note ---
Provider Note Provider Note: The patient was scheduled to discharge today. Unfortunately the family members who were supposed to be trained at [facility] for infusing the antibiotics with the patient's peritoneal dialysis have not undergone that training yet. Per Dr. Eric we will keep the patient in the hospital. I have canceled the discharge order. The dictated discharge summary in fact will be his progress note for today.
[2018-01-13] MEDS: ONDANSETRON HCL INJ/PF 4 MG/2 ML SDV IV PRN (11:38)
[2018-01-13] MEDS ORDERED: VANCOMYCIN HCL INJ 1000 MG VIAL IPER SCH (12:00)
[2018-01-13] MEDS ORDERED: LACTULOSE SYRUP 20 GM/30 ML UDCUP PO ONE ×2 (13:00→17:45)
[2018-01-13] MEDS ORDERED: HEPARIN SOD (PORCINE) 1,000 UNIT/ML 10 ML VIAL ONE (16:19)
[2018-01-13] MEDS ORDERED: HEPARIN SOD (PORCINE) 1,000 UNIT/ML 10 ML VIAL MC ONE (16:30)
[2018-01-13] MEDS: POLYETHYLENE GLYCOL 3350 POWDER 17 GM/1 PACKET PO SCH (17:46)
[2018-01-13] MEDS ORDERED: CEFTAZIDIME INJ 1 GM VIAL IPER SCH (18:00)
--- NOTE | 2018-01-13 18:02 | RADIOLOGY REPORT (SQ) ---
EXAM DESCRIPTION: KUB/ABDOMEN (SINGLE VIEW) COMPLETED DATE/TIME: 01/13/2018 5:31 pm REASON FOR STUDY: peritoneal dialysis fluid won't drain COMPARISON: None. NUMBER OF VIEWS: One view. TECHNIQUE: Supine radiographic image of the abdomen acquired. LIMITATIONS: None. FINDINGS: BOWEL GAS PATTERN: Nonobstructive pattern. There is a large amount of stool. CALCIFICATIONS: No suspicious calcifications. SOFT TISSUES: No gross mass or suggestion of organomegaly. HARDWARE: None in the abdomen. BONES: Lumbar degenerative disc disease. Mild scoliosis. OTHER: No other significant finding. IMPRESSION: Constipation. Osseous findings as described. TECHNICAL DOCUMENTATION: JOB ID: [id number] [employer]- All Rights Reserved Reading location - IP/workstation name: [email or web address]
[2018-01-13] MEDS: CEFTAZIDIME PENTAHYDRATE 1 GM in DEXTROSE 5%-WATER 50 ML IV SCH (18:30)
[2018-01-13] MEDS ORDERED: MAGNESIUM CITRATE 296 ML BOTTLE PO ONE ×2 (19:00→19:15)
[2018-01-13] MEDS: VANCOMYCIN HCL 1,000 MG in DEXTROSE 5%-WATER 250 ML IV SCH (20:50)
[2018-01-13] MEDS: ATORVASTATIN CALCIUM 10 MG TABLET PO SCH (21:03)
[2018-01-13] MEDS: PHARMACY COMMUNICATION ORDER MC SCH (21:14)
[2018-01-14] MEDS: MORPHINE SULFATE 10 MG/ML INJ IV PRN ×6 (00:23→23:43)
[2018-01-14 06:46] LABS: MEAN CORPUSCULAR HEMOGLOBIN 31.6 pg (27.0-33.4); MEAN CORPUSCULAR HGB CONC 33.2 g/dL (32.0-36.0); MEAN CORPUSCULAR VOLUME 95 fl (80-97); PLATELET COUNT 124 10^3/uL (150-450); RED BLOOD COUNT 2.83 10^6/uL (4.35-5.55); RED CELL DISTRIBUTION WIDTH 17.9 % (11.5-14.0); WHITE BLOOD COUNT 9.9 10^3/uL (4.0-10.5)
[2018-01-14 07:08] LABS: ABSOLUTE LYMPHOCYTES# (MANUAL) 0.4 10^3/uL (0.5-4.7); ABSOLUTE MONOCYTES # (MANUAL) 0.5 10^3/uL (0.1-1.4); ABSOLUTE NEUTROPHILS# (MANUAL) 8.9 10^3/uL (1.7-8.2); BASOPHILS % (MANUAL) 0 % (0-2); EOSINOPHILS % (MANUAL) 1 % (0-6); LYMPHOCYTES % (MANUAL) 4 % (13-45); MONOCYTES % (MANUAL) 5 % (3-13); SEGMENTED NEUTROPHILS % (MAN) 90 % (42-78); TOTAL CELLS COUNTED 100
[2018-01-14 07:09] LABS: ANISOCYTOSIS 1+; PLATELET COMMENT DECREASED; POLYCHROMASIA SLIGHT; TOXIC GRANULATION SLIGHT
[2018-01-14] MEDS: LEVOTHYROXINE SODIUM 0.1 MG TABLET PO SCH (07:10)
[2018-01-14] MEDS: HEPARIN SOD (PORCINE) 5,000 UNIT/ML 1 ML SYRINGE SUBCUT SCH ×3 (07:11→21:16)
[2018-01-14] MEDS: LACTULOSE SYRUP 20 GM/30 ML UDCUP PO SCH ×3 (07:11→21:22)
[2018-01-14 07:41] LABS: ALBUMIN 2.2 g/dL (3.5-5.0); BLOOD UREA NITROGEN 92 mg/dL (7-20); CALCIUM 7.5 mg/dL (8.4-10.2); GLUCOSE 106 mg/dL (75-110); PHOSPHORUS 4.7 mg/dL (2.5-4.5)
[2018-01-14 07:48] LABS: CARBON DIOXIDE 28 mmol/L (22-30); CHLORIDE 84 mmol/L (98-107); SODIUM 130.7 mmol/L (137-145)
[2018-01-14 07:49] LABS: ANION GAP 19 (5-19)
--- NOTE | 2018-01-14 08:12 | PDOC PROGRESS REPORT ---
Subjective Progress Note for:: 01/13/18 Subjective:: Patient was seen today sitting on the edge of his bed. At the time he was having constipation and was not able to fully drain. His abdominal pain has greatly improved, but he is still having some diffuse tenderness. Currently he is waiting on his son learning how to put antibiotics into the dialysis begs for his fills at home. According to the PD nurse at [facility] we are still waiting on the son to come in for training. 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: ESRD PERITONITIS Physical Exam Vital Signs: Temp Pulse Resp BP Pulse Ox 98.0 F 95 16 125/52 L 93 01/13/18 08:06 01/13/18 11:56 01/13/18 08:06 01/13/18 11:56 01/13/18 08:06 Intake & Output 01/12/18 01/13/18 01/14/18 06:59 06:59 06:59 Intake Total 6834 4836 3000 Output Total 7400 5200 1500 Balance -566 -364 1500 Weight 59 kg 58.6 kg 57.8 kg General appearance: PRESENT: no acute distress, well-developed. ABSENT: well- nourished Mouth exam: PRESENT: moist, neck supple Neck exam: PRESENT: full ROM. ABSENT: JVD Respiratory exam: PRESENT: clear to auscultation tata. ABSENT: accessory muscle use, crackles, rales, rhonchi, wheezes Cardiovascular exam: PRESENT: +S1, +S2, systolic murmur GI/Abdominal exam: PRESENT: hypoactive bowel sounds, soft, tenderness Extremities exam: PRESENT: +1 edema. ABSENT: tenderness, +2 edema Musculoskeletal exam: PRESENT: normal inspection. ABSENT: tenderness Neurological exam: PRESENT: alert, awake, oriented to person, oriented to place , oriented to time, oriented to situation Skin exam: PRESENT: dry, intact, warm Results Laboratory Results: 01/13/18 06:00 01/13/18 06:00 01/13/18 01/13/18 06:00 06:00 WBC 8.1 RBC 2.73 L Hgb 8.6 L Hct 25.8 L MCV 94 MCH 31.4 MCHC 33.3 RDW 18.0 H Plt Count 122 L Seg Neutrophils % 85.5 H Lymphocytes % 5.8 L Monocytes % 7.5 Eosinophils % 0.6 Basophils % 0.6 Absolute Neutrophils 7.0 Absolute Lymphocytes 0.5 Absolute Monocytes 0.6 Absolute Eosinophils 0.0 Absolute Basophils 0.0 Sodium 130.3 L Potassium 4.4 Chloride 86 L Carbon Dioxide 29 Anion Gap 15 BUN 83 H Creatinine 7.14 H Est GFR ( Amer) 9 L Est GFR (Non-Af Amer) 8 L Glucose 87 Calcium 7.5 L Phosphorus 4.4 Magnesium 2.9 H Albumin 2.1 L Impressions: Abdomen/Pelvis CT 01/09/18 19:50 IMPRESSION: Moderate left pleural effusion. Cardiomegaly. Extensive atheromatous change. Slightly coarsened echotexture to the liver which could reflect early cirrhotic change. Catheter with the tip coiled in the right upper quadrant. Large amount of stool in the colon. TECHNICAL DOCUMENTATION: Quality ID # 436: Final reports with documentation of one or more dose reduction techniques (e.g., Automated exposure control, adjustment of the mA and/or kV according to patient size, use of iterative reconstruction technique) 2010 [employer]- All Rights Reserved Assessment & Plan - Diagnosis (1) Bacterial peritonitis Is this a current diagnosis for this admission?: Yes Plan: currently on vanc and ceftazidime, vanc levels were good at 16. Awaiting the son to get the training for putting antibiotics in his bag (2) ESRD (end stage renal disease) Is this a current diagnosis for this admission?: Yes Plan: on PD currently on hold while his constipation is resolved. due to not fully emptying. Other reason for incomplete drainage is reabsorption from low blood pressure. (3) Anemia due to chronic kidney disease treated with erythropoietin Is this a current diagnosis for this admission?: Yes Plan: on procrit (4) Constipation Qualifiers: Constipation type: unspecified constipation type Qualified Code(s): K59.00 - Constipation, unspecified Is this a current diagnosis for this admission?: Yes Plan: constipated again, will give soap suds enema and lactulose
[2018-01-14] MEDS: ONDANSETRON HCL INJ/PF 4 MG/2 ML SDV IV PRN (08:27)
[2018-01-14] MEDS: CALCIUM ACETATE 667 MG CAPSULE PO SCH ×2 (08:27→14:54)
[2018-01-14] MEDS: ASPIRIN 81 MG TABLET, CHEWABLE PO SCH (10:00)
[2018-01-14] MEDS: FERROUS SULFATE 325 MG TABLET PO SCH ×2 (10:00→18:13)
[2018-01-14] MEDS: POLYETHYLENE GLYCOL 3350 POWDER 17 GM/1 PACKET PO SCH (10:00)
[2018-01-14] MEDS: MULTIVIT-STRESS FORMULA/ZINC TABLET PO SCH (10:01)
[2018-01-14] MEDS: MAGNESIUM OXIDE 400 MG TABLET PO SCH (10:01)
[2018-01-14] MEDS: METOPROLOL SUCCINATE 25 MG TAB.SR.24H PO SCH ×2 (10:01→21:22)
[2018-01-14] MEDS: LIDOCAINE 5% (700 MG) TRANSDERMAL ADH..PATCH TP SCH (10:02)
[2018-01-14] MEDS: FOLIC ACID 1 MG TABLET PO SCH (10:02)
[2018-01-14] MEDS: BISACODYL 10 MG SUPP.RECT PR SCH ×2 (10:02→21:22)
[2018-01-14] MEDS: CLONAZEPAM 1 MG TABLET PO SCH ×2 (10:02→18:15)
[2018-01-14] MEDS: CALCITRIOL 0.25 MCG CAPSULE PO SCH (10:02)
[2018-01-14] MEDS: GENTAMICIN SULFATE 0.1% CREAM 15 GM TP SCH (11:59)
[2018-01-14] MEDS ORDERED: MINERAL OIL ENEMA 133 ML PR PRN (12:44)
--- NOTE | 2018-01-14 12:57 | PDOC PROGRESS REPORT ---
Subjective Progress Note for:: 01/14/18 Subjective:: The patient is feeling quite weak today but in fact feels better than yesterday. His abdomen feels better and is not as distended. 01/12/2018-the patient actually feels slightly worse than yesterday. He is uncomfortable in general. His stomach, despite relief of his constipation, still does not feel back at baseline. He also noticed that his feet were reddened today. 01/14/2018-the patient has more distended abdomen. He has not been draining his peritoneal dialysis at [place] and there is retained fluid. This is causing discomfort. Is also still struggling with constipation. 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: ESRD PERITONITIS Physical Exam Vital Signs: Temp Pulse Resp BP Pulse Ox 97.7 F 76 18 128/84 H 96 01/14/18 07:53 01/14/18 10:50 01/14/18 09:01 01/14/18 10:50 01/14/18 09:01 Intake & Output 01/13/18 01/14/18 01/15/18 06:59 06:59 06:59 Intake Total 4836 5630 1000 Output Total 5200 2050 100 Balance -364 3580 900 Weight 58.6 kg 55.5 kg General appearance: PRESENT: cooperative, well-developed, other - Moderate distress Eye exam: PRESENT: conjunctiva pale. ABSENT: scleral icterus Neck exam: ABSENT: carotid bruit, lymphadenopathy Respiratory exam: PRESENT: clear to auscultation tata, decreased breath sounds, symmetrical. ABSENT: stridor, wheezes Cardiovascular exam: PRESENT: RRR, +S1, +S2 GI/Abdominal exam: PRESENT: distended, normal bowel sounds, tenderness - The patient is exhibiting tenderness even with mild palpation. Neurological exam: PRESENT: altered - Lethargic today, oriented to person, oriented to place, oriented to situation Results Laboratory Results: 01/14/18 06:03 01/14/18 06:03 01/14/18 01/14/18 06:03 06:03 WBC 9.9 RBC 2.83 L Hgb 9.0 L Hct 27.0 L MCV 95 MCH 31.6 MCHC 33.2 RDW 17.9 H Plt Count 124 L Seg Neutrophils % Not Reportable Lymphocytes % Not Reportable Monocytes % Not Reportable Eosinophils % Not Reportable Basophils % Not Reportable Absolute Neutrophils Not Reportable Absolute Lymphocytes Not Reportable Absolute Monocytes Not Reportable Absolute Eosinophils Not Reportable Absolute Basophils Not Reportable Sodium 130.7 L Potassium 5.0 Chloride 84 L Carbon Dioxide 28 Anion Gap 19 BUN 92 H Creatinine 8.31 H Est GFR ( Amer) 8 L Est GFR (Non-Af Amer) 6 L Glucose 106 Calcium 7.5 L Phosphorus 4.7 H Magnesium 3.8 H Albumin 2.2 L Impressions: Abdomen/Pelvis CT 01/09/18 19:50 IMPRESSION: Moderate left pleural effusion. Cardiomegaly. Extensive atheromatous change. Slightly coarsened echotexture to the liver which could reflect early cirrhotic change. Catheter with the tip coiled in the right upper quadrant. Large amount of stool in the colon. TECHNICAL DOCUMENTATION: Quality ID # 436: Final reports with documentation of one or more dose reduction techniques (e.g., Automated exposure control, adjustment of the mA and/or kV according to patient size, use of iterative reconstruction technique) 2010 [employer]- All Rights Reserved KUB X-Ray 01/13/18 00:00 IMPRESSION: Constipation. Osseous findings as described. Assessment & Plan - Diagnosis (1) Bacterial peritonitis Is this a current diagnosis for this admission?: Yes Plan: The patient is on vancomycin and ceftazidime. Dr. Eric is adjusting medications for his renal failure. His medications are being administered with his peritoneal dialysis. The peritoneal fluid is no growth at 24 hours. The patient does feel better at this time. 01/12/2018-he did well with dialysis today. He will remain on vancomycin and ceftazidime. I will discuss with nephrology how long they wish to continue the antibiotic therapy that is infused with his peritoneal dialysis it. 01/14/2018-continue vancomycin and ceftazidime. (2) ESRD (end stage renal disease) Is this a current diagnosis for this admission?: Yes Plan: He is continuing peritoneal dialysis. Dr. Eric is managing his dialysis. 01/12/2018-continue peritoneal dialysis per nephrology. 01/14/2018-patient is retaining part of his dialysate. Dr. Kahn is in constant contact with the staff directing this effort. (3) Anemia due to chronic kidney disease treated with erythropoietin Is this a current diagnosis for this admission?: Yes Plan: The patient does receive erythropoietin weekly. Dr. Eric is supervising that medication. He is already on iron therapy. Because his hemoglobin has dropped from 8.5-7.5 we will administer 1 unit of packed red blood cells today. Dr. Eric is aware and in agreement. 01/12/2018-the patient did receive 1 unit of packed red blood cells yesterday. His hemoglobin posttransfusion was 9.6 and is down to 8.5 today. I will recheck it again tomorrow. He continues on iron supplement and erythropoietin. 01/14/2018-hemoglobin is holding. He did receive a unit of packed red blood cells several days ago. He continues on iron and erythropoietin. (4) Constipation Qualifiers: Constipation type: unspecified constipation type Qualified Code(s): K59.00 - Constipation, unspecified Is this a current diagnosis for this admission?: Yes Plan: Staff reports that the patient has had a very aggressive intervention for his constipation and it has been very effective. We will continue to monitor for recurrence. 01/12/2018-the patient's bowels have not quite settled. We did start a trial of Metamucil daily. We did discuss stool softeners and laxatives that he should avoid considering his renal failure. 01/14/2018-this is an ongoing struggle. He is receiving multiple treatments. I am going to add mineral oil enemas as he reports that the stool is fairly firm and difficult to pass. (5) Venous insufficiency of both lower extremities Is this a current diagnosis for this admission?: Yes Plan: The discoloration in his feet is most likely due to venous insufficiency. 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 I explained to him that having his feet in a dependent position after keeping them elevated in bed for several days will likely cause this discoloration. I suggested that if he elevated his feet this would go away in approximately 2030 minutes. I did reassure him that this is not an acute concern. He may benefit from compression stocking therapy. 01/14/2018-unchanged (6) Hypothyroid Is this a current diagnosis for this admission?: Yes Plan: Continue levothyroxine 100 mcg daily. (7) Coronary artery disease Qualifiers: Coronary Disease-Associated Artery/Lesion type: [place] artery [place] vs. transplanted heart: [place] heart Associated angina: angina presence unspecified Qualified Code(s): I25.10 - Atherosclerotic heart disease of [place] coronary artery without angina pectoris Is this a current diagnosis for this admission?: Yes Plan: Stable. No change in treatment plan. - Time Time Spent with patient: 25-34 minutes Medications reviewed and adjusted accordingly: Yes
[2018-01-14] MEDS ORDERED: MINERAL OIL ENEMA 133 ML PR ONE (13:30)
[2018-01-14] MEDS ORDERED: CALCIUM ACETATE 667 MG CAPSULE PO SCH (17:00)
[2018-01-14] MEDS: CEFTAZIDIME PENTAHYDRATE 1 GM in DEXTROSE 5%-WATER 50 ML IV SCH (18:15)
[2018-01-14] MEDS ORDERED: CALCIUM ACETATE 667 MG CAPSULE PO ONE (20:45)
[2018-01-14] MEDS: ATORVASTATIN CALCIUM 10 MG TABLET PO SCH (21:23)
[2018-01-14] MEDS: PHARMACY COMMUNICATION ORDER MC SCH (21:23)
[2018-01-14] MEDS ORDERED: MAG HYDROX/AL HYDROX/SIMETH SUSP 30 ML UDCUP ONE (23:07)
[2018-01-14] MEDS: MAG HYDROX/AL HYDROX/SIMETH SUSP 30 ML UDCUP PO PRN (23:36)
[2018-01-15] MEDS: LACTULOSE SYRUP 20 GM/30 ML UDCUP PO SCH ×3 (05:31→21:11)
[2018-01-15] MEDS: LEVOTHYROXINE SODIUM 0.1 MG TABLET PO SCH (05:31)
[2018-01-15] MEDS: HEPARIN SOD (PORCINE) 5,000 UNIT/ML 1 ML SYRINGE SUBCUT SCH ×3 (05:31→21:11)
[2018-01-15 06:36] LABS: ANION GAP 18 (5-19); BLOOD UREA NITROGEN 88 mg/dL (7-20); CALCIUM 7.3 mg/dL (8.4-10.2); CARBON DIOXIDE 27 mmol/L (22-30); CHLORIDE 84 mmol/L (98-107); GLUCOSE 94 mg/dL (75-110); PHOSPHORUS 4.3 mg/dL (2.5-4.5); POTASSIUM 4.6 mmol/L (3.6-5.0); SODIUM 128.8 mmol/L (137-145)
[2018-01-15] MEDS: POLYETHYLENE GLYCOL 3350 POWDER 17 GM/1 PACKET PO SCH (09:55)
[2018-01-15] MEDS: MULTIVIT-STRESS FORMULA/ZINC TABLET PO SCH (09:55)
[2018-01-15] MEDS: ASPIRIN 81 MG TABLET, CHEWABLE PO SCH (09:55)
[2018-01-15] MEDS: CALCITRIOL 0.25 MCG CAPSULE PO SCH (09:56)
[2018-01-15] MEDS: CLONAZEPAM 1 MG TABLET PO SCH ×2 (09:56→17:45)
[2018-01-15] MEDS: FERROUS SULFATE 325 MG TABLET PO SCH (09:56)
[2018-01-15] MEDS: METOPROLOL SUCCINATE 25 MG TAB.SR.24H PO SCH ×2 (09:57→21:11)
[2018-01-15] MEDS: OXYCODONE-ACETAMINOPHEN 5-325 MG TABLET PO PRN (09:57)
[2018-01-15] MEDS: FOLIC ACID 1 MG TABLET PO SCH (09:58)
[2018-01-15] MEDS: BISACODYL 10 MG SUPP.RECT PR SCH ×2 (09:58→21:11)
[2018-01-15] MEDS: LIDOCAINE 5% (700 MG) TRANSDERMAL ADH..PATCH TP SCH (09:59)
[2018-01-15] MEDS: GENTAMICIN SULFATE 0.1% CREAM 15 GM TP SCH (09:59)
[2018-01-15] MEDS ORDERED: CALCIUM ACETATE 667 MG CAPSULE PO SCH (10:00)
[2018-01-15] MEDS: MORPHINE SULFATE 10 MG/ML INJ IV PRN (10:19)
--- NOTE | 2018-01-15 13:06 | PDOC PROGRESS REPORT ---
Subjective Progress Note for:: 01/15/18 Subjective:: The patient is feeling quite weak today but in fact feels better than yesterday. His abdomen feels better and is not as distended. 01/12/2018-the patient actually feels slightly worse than yesterday. He is uncomfortable in general. His stomach, despite relief of his constipation, still does not feel back at baseline. He also noticed that his feet were reddened today. 01/14/2018-the patient has more distended abdomen. He has not been draining his peritoneal dialysis at [facility] and there is retained fluid. This is causing discomfort. Is also still struggling with constipation. 01/15/2018-he does seem to be in slightly better spirits today. His son is visiting. 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: ESRD PERITONITIS Physical Exam Vital Signs: Temp Pulse Resp BP Pulse Ox 98 F 66 18 109/43 L 97 01/15/18 09:00 01/15/18 12:47 01/15/18 09:00 01/15/18 12:47 01/15/18 09:00 Intake & Output 01/14/18 01/15/18 01/16/18 06:59 06:59 06:59 Intake Total 5630 4562 3050 Output Total 2050 2500 1600 Balance 3580 2062 1450 Weight 55.5 kg 58.8 kg 59.1 kg General appearance: PRESENT: no acute distress, well-developed - But frail Eye exam: PRESENT: conjunctiva pale. ABSENT: scleral icterus Mouth exam: PRESENT: dry mucosa Neck exam: ABSENT: carotid bruit, lymphadenopathy Respiratory exam: PRESENT: clear to auscultation tata, symmetrical, unlabored. ABSENT: rales, rhonchi, wheezes Cardiovascular exam: PRESENT: RRR, +S1, +S2 GI/Abdominal exam: PRESENT: normal bowel sounds, soft. ABSENT: tenderness Neurological exam: PRESENT: alert, awake, oriented to person, oriented to place , oriented to situation Psychiatric exam: PRESENT: appropriate affect, normal mood. ABSENT: agitated, anxious Focused psych exam: ABSENT: restlessness Results Laboratory Results: 01/14/18 06:03 01/15/18 05:26 01/15/18 05:26 Sodium 128.8 L Potassium 4.6 Chloride 84 L Carbon Dioxide 27 Anion Gap 18 BUN 88 H Creatinine 7.99 H Est GFR ( Amer) 8 L Est GFR (Non-Af Amer) 7 L Glucose 94 Calcium 7.3 L Phosphorus 4.3 Magnesium 3.9 H Albumin 2.0 L Impressions: Abdomen/Pelvis CT 01/09/18 19:50 IMPRESSION: Moderate left pleural effusion. Cardiomegaly. Extensive atheromatous change. Slightly coarsened echotexture to the liver which could reflect early cirrhotic change. Catheter with the tip coiled in the right upper quadrant. Large amount of stool in the colon. TECHNICAL DOCUMENTATION: Quality ID # 436: Final reports with documentation of one or more dose reduction techniques (e.g., Automated exposure control, adjustment of the mA and/or kV according to patient size, use of iterative reconstruction technique) 2010 [employer]- All Rights Reserved KUB X-Ray 01/13/18 00:00 IMPRESSION: Constipation. Osseous findings as described. Assessment & Plan - Diagnosis (1) Bacterial peritonitis Is this a current diagnosis for this admission?: Yes Plan: The patient is on vancomycin and ceftazidime. Dr. Eric is adjusting medications for his renal failure. His medications are being administered with his peritoneal dialysis. The peritoneal fluid is no growth at 24 hours. The patient does feel better at this time. 01/12/2018-he did well with dialysis today. He will remain on vancomycin and ceftazidime. I will discuss with nephrology how long they wish to continue the antibiotic therapy that is infused with his peritoneal dialysis it. 01/14/2018-continue vancomycin and ceftazidime. 01/15/2018-per Dr. Eric expected duration of antibiotic therapy is 2 weeks (2) ESRD (end stage renal disease) Is this a current diagnosis for this admission?: Yes Plan: He is continuing peritoneal dialysis. Dr. Eric is managing his dialysis. 01/12/2018-continue peritoneal dialysis per nephrology. 01/14/2018-patient is retaining part of his dialysate. Dr. Kahn is in constant contact with the staff directing this effort. 01/15/2018-the patient has been having trouble with his peritoneal dialysis over the last 2 days. The staff is been in constant contact with Dr. Eric. During this encounter he had very good outflow from his peritoneal catheter. (3) Anemia due to chronic kidney disease treated with erythropoietin Is this a current diagnosis for this admission?: Yes Plan: The patient does receive erythropoietin weekly. Dr. Eric is supervising that medication. He is already on iron therapy. Because his hemoglobin has dropped from 8.5-7.5 we will administer 1 unit of packed red blood cells today. Dr. Eric is aware and in agreement. 01/12/2018-the patient did receive 1 unit of packed red blood cells yesterday. His hemoglobin posttransfusion was 9.6 and is down to 8.5 today. I will recheck it again tomorrow. He continues on iron supplement and erythropoietin. 01/14/2018-hemoglobin is holding. He did receive a unit of packed red blood cells several days ago. He continues on iron and erythropoietin. 01/15/2018-erythropoietin per nephrology. Patient has declined his iron because it can be constipating. Anemia has been stable. (4) Constipation Qualifiers: Constipation type: unspecified constipation type Qualified Code(s): K59.00 - Constipation, unspecified Is this a current diagnosis for this admission?: Yes Plan: Staff reports that the patient has had a very aggressive intervention for his constipation and it has been very effective. We will continue to monitor for recurrence. 01/12/2018-the patient's bowels have not quite settled. We did start a trial of Metamucil daily. We did discuss stool softeners and laxatives that he should avoid considering his renal failure. 01/14/2018-this is an ongoing struggle. He is receiving multiple treatments. I am going to add mineral oil enemas as he reports that the stool is fairly firm and difficult to pass. 01/15/2018-the patient states that he did move his bowels a bit with the mineral oil enema. He is on a fairly aggressive regimen. Hopefully things will break loose soon. (5) Venous insufficiency of both lower extremities Is this a current diagnosis for this admission?: Yes Plan: The discoloration in his feet is most likely due to venous insufficiency. 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 I explained to him that having his feet in a dependent position after keeping them elevated in bed for several days will likely cause this discoloration. I suggested that if he elevated his feet this would go away in approximately 2030 minutes. I did reassure him that this is not an acute concern. He may benefit from compression stocking therapy. 01/14/2018-unchanged 01/14/2018-stable. Continue current regimen. (6) Hypothyroid Is this a current diagnosis for this admission?: Yes Plan: Continue levothyroxine 100 mcg daily. 01/15/2018-asymptomatic. Continue current levothyroxine dose. (7) Coronary artery disease Qualifiers: Coronary Disease-Associated Artery/Lesion type: [place] artery [place] vs. transplanted heart: [place] heart Associated angina: angina presence unspecified Qualified Code(s): I25.10 - Atherosclerotic heart disease of [place] coronary artery without angina pectoris Is this a current diagnosis for this admission?: Yes Plan: Stable. No change in treatment plan. 01/15/2018-no cardiac symptoms. Continue current regimen. - Time Time Spent with patient: During this encounter the patient's son arrived. There were multiple questions. Approximately 30 minutes was dedicated to this encounter. Time Spent with patient: 25-34 minutes Medications reviewed and adjusted accordingly: Yes
[2018-01-15] MEDS: DRONABINOL 2.5 MG CAPSULE PO SCH (17:45)
[2018-01-15] MEDS: ONDANSETRON HCL INJ/PF 4 MG/2 ML SDV IV PRN (17:45)
[2018-01-15] MEDS: CEFTAZIDIME PENTAHYDRATE 1 GM in DEXTROSE 5%-WATER 50 ML IV SCH (17:45)
[2018-01-15] MEDS: MAG HYDROX/AL HYDROX/SIMETH SUSP 30 ML UDCUP PO PRN (19:38)
--- NOTE | 2018-01-15 20:05 | RADIOLOGY REPORT (SQ) ---
EXAM DESCRIPTION: CHEST SINGLE VIEW COMPLETED DATE/TIME: 01/15/2018 7:08 pm REASON FOR STUDY: Check for effusions COMPARISON: 12/18/2017 EXAM PARAMETERS: NUMBER OF VIEWS: One view. TECHNIQUE: Single frontal radiographic view of the chest acquired. RADIATION DOSE: NA LIMITATIONS: None. FINDINGS: LUNGS AND PLEURA: Minimal left perihilar parenchymal opacity. Pleural reaction on the rig ht. No pneumothorax. MEDIASTINUM AND HILAR STRUCTURES: No masses. Contour normal. HEART AND VASCULAR STRUCTURES: Heart enlarged without failure. CABG hardware. BONES: No acute findings. HARDWARE: None in the chest. OTHER: No other significant finding. IMPRESSION: Perihilar parenchymal opacity on the left. Cardiac enlargement without failure. TECHNICAL DOCUMENTATION: JOB ID: [id number] [employer]- All Rights Reserved Reading location - IP/workstation name: [email or web address]
[2018-01-15] MEDS: VANCOMYCIN HCL 1,000 MG in DEXTROSE 5%-WATER 250 ML IV SCH (21:01)
[2018-01-15] MEDS: ATORVASTATIN CALCIUM 10 MG TABLET PO SCH (21:11)
[2018-01-15] MEDS: PHARMACY COMMUNICATION ORDER MC SCH (23:29)
[2018-01-16] MEDS: MORPHINE SULFATE 10 MG/ML INJ IV PRN ×3 (00:52→23:02)
[2018-01-16] MEDS: LACTULOSE SYRUP 20 GM/30 ML UDCUP PO SCH ×3 (06:24→23:10)
[2018-01-16] MEDS: HEPARIN SOD (PORCINE) 5,000 UNIT/ML 1 ML SYRINGE SUBCUT SCH ×3 (06:24→23:11)
[2018-01-16] MEDS: LEVOTHYROXINE SODIUM 0.1 MG TABLET PO SCH (06:27)
[2018-01-16 06:33] LABS: ANION GAP 17 (5-19); BLOOD UREA NITROGEN 89 mg/dL (7-20); CALCIUM 7.8 mg/dL (8.4-10.2); CARBON DIOXIDE 29 mmol/L (22-30); CHLORIDE 84 mmol/L (98-107); GLUCOSE 165 mg/dL (75-110); PHOSPHORUS 3.5 mg/dL (2.5-4.5); SODIUM 129.6 mmol/L (137-145)
[2018-01-16] MEDS: OXYCODONE-ACETAMINOPHEN 5-325 MG TABLET PO PRN ×2 (07:44→23:03)
[2018-01-16] MEDS: BISACODYL 10 MG SUPP.RECT PR SCH (11:14)
[2018-01-16] MEDS: POLYETHYLENE GLYCOL 3350 POWDER 17 GM/1 PACKET PO SCH (11:14)
[2018-01-16] MEDS: CLONAZEPAM 1 MG TABLET PO SCH ×2 (11:15→18:27)
[2018-01-16] MEDS: ASPIRIN 81 MG TABLET, CHEWABLE PO SCH (11:18)
[2018-01-16] MEDS: FOLIC ACID 1 MG TABLET PO SCH (11:19)
[2018-01-16] MEDS: GENTAMICIN SULFATE 0.1% CREAM 15 GM TP SCH (11:19)
[2018-01-16] MEDS: CALCITRIOL 0.25 MCG CAPSULE PO SCH (11:21)
[2018-01-16] MEDS: DRONABINOL 2.5 MG CAPSULE PO SCH ×2 (11:21→18:27)
[2018-01-16] MEDS ORDERED: BISACODYL 10 MG SUPP.RECT PR PRN (11:21)
[2018-01-16] MEDS: LIDOCAINE 5% (700 MG) TRANSDERMAL ADH..PATCH TP SCH (11:21)
[2018-01-16] MEDS: METOPROLOL SUCCINATE 25 MG TAB.SR.24H PO SCH ×2 (11:21→23:03)
[2018-01-16] MEDS: MULTIVIT-STRESS FORMULA/ZINC TABLET PO SCH (11:22)
--- NOTE | 2018-01-16 11:36 | PDOC PROGRESS REPORT ---
Subjective Progress Note for:: 01/16/18 Subjective:: Patient had severe constipation since Tuesday so he was not draining well during his peritoneal dialysis exchanges for Tuesday and Tuesday. He was given multiple laxatives and finally yesterday had a very good bowel movement. Since then his draining very well on his peritoneal dialysis exchanges. He is actually having very good ultrafiltration since he started draining well since yesterday using 2.5% dialysis solution. Today he said is feeling much better, denies any abdominal pain and does not really have any new complaints. He admits that his appetite is not the best but he is already on Marinol. He denies any shortness of breath or chest pains. His son and jiscpkwl-wy-tjj were already trying to put intraperitoneal antibiotics last Tuesday at [facility] dialysis unit. The [id number]-sd-mll called the [facility] dialysis unit this morning expresses her concern about the patient unable to do his peritoneal dialysis exchanges at home the way he should be. Wjzpjvyu-nk-oux expressed that he might be better off on hemodialysis. Usually the sonWill comes in the afternoon to prepare his PD cycler machine for him to hold himself up and then in the morning the patient took himself out of the cycler machine. So I talked to the patient himself this morning about that concern and the possibility of switching to in center hemodialysis. He also expressed his objection and will not go to in center hemodialysis. He tells me that when he tried it before it made him really sick and he will not go into in center hemodialysis at this time and is comfortable doing his peritoneal dialysis exchanges to the cycler machine at home. I did relay this information to his egpnewgu-zs-wkz, Belkis today. 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: ESRD PERITONITIS Physical Exam Vital Signs: Temp Pulse Resp BP Pulse Ox 97.6 F 76 16 123/53 L 100 01/16/18 08:25 01/16/18 08:25 01/16/18 08:25 01/16/18 08:25 01/16/18 08:25 Intake & Output 01/15/18 01/16/18 01/17/18 06:59 06:59 06:59 Intake Total 4562 9554 Output Total 2500 32514 Balance 2061 Weight 58.8 kg 59.3 kg Exam: General appearance: PRESENT: no acute distress, cooperative, well-developed, well-nourished Head exam: PRESENT: atraumatic, normocephalic Eye exam: PRESENT: conjunctiva pale, PERRLA. ABSENT: scleral icterus Neck exam: ABSENT: JVD Respiratory exam: PRESENT: Normal breath sounds. ABSENT: crackles, rales, rhonchi, unlabored, wheezes Cardiovascular exam: PRESENT: Regular rate rhythm -+S1, +S2. ABSENT: diastolic murmur, systolic murmur GI/Abdominal exam: PRESENT: normal bowel sounds, soft. PD catheter in place ABSENT: guarding, mass, tenderness Extremities exam: Grade 1 bilateral lower extremity edema Neurological exam: PRESENT: alert, awake, oriented to person, place and time. Skin exam: PRESENT: dry, warm, Cardiovascular exam: PRESENT: +S1, +S2, systolic murmur GI/Abdominal exam: PRESENT: hypoactive bowel sounds, soft, tenderness Results Laboratory Results: 01/14/18 06:03 01/16/18 05:43 01/16/18 05:43 Sodium 129.6 L Potassium 5.0 Chloride 84 L Carbon Dioxide 29 Anion Gap 17 BUN 89 H Creatinine 7.73 H Est GFR ( Amer) 8 L Est GFR (Non-Af Amer) 7 L Glucose 165 H Calcium 7.8 L Phosphorus 3.5 Impressions: Abdomen/Pelvis CT 01/09/18 19:50 IMPRESSION: Moderate left pleural effusion. Cardiomegaly. Extensive atheromatous change. Slightly coarsened echotexture to the liver which could reflect early cirrhotic change. Catheter with the tip coiled in the right upper quadrant. Large amount of stool in the colon. TECHNICAL DOCUMENTATION: Quality ID # 436: Final reports with documentation of one or more dose reduction techniques (e.g., Automated exposure control, adjustment of the mA and/or kV according to patient size, use of iterative reconstruction technique) 2010 [employer]- All Rights Reserved KUB X-Ray 01/13/18 00:00 IMPRESSION: Constipation. Osseous findings as described. Chest X-Ray 01/15/18 00:00 IMPRESSION: Perihilar parenchymal opacity on the left. Cardiac enlargement without failure. Assessment & Plan - Diagnosis (1) Bacterial peritonitis Is this a current diagnosis for this admission?: Yes Plan: Patient's antibiotics were switched to intravenous over the weekend because of severe constipation and unable to drained the PD fluid. His last vancomycin intravenous dose was given last night. Since the patient's PD exchanges is going on well now after the constipation has been relieved I will change his antibiotics intraperitoneally in preparation for him to go home. We will start the ceftazidime 1 g intraperitoneally tonight. We will get vancomycin trough level tomorrow and start his intraperitoneal vancomycin dose after that. If the patient continues to be stable I think the patient can be sent home tomorrow for him to continue down into antibiotics intraperitoneally at home for a couple more weeks. Discussed this plan with the patient, his daughter-in- law, and Dr. gina champion from the hospitalist service. (2) ESRD (end stage renal disease) Is this a current diagnosis for this admission?: Yes Plan: Continue the same manual CAPD regimen using 1.5 L fill volume and either 2.5% or 1.5% dialysate solution depending on the blood pressure. Discussed this instruction with the patient's nurse today Yadi. Continue daily exit site care and daily weights. (3) Anemia due to chronic kidney disease treated with erythropoietin Is this a current diagnosis for this admission?: Yes Plan: We will give the patient Neupogen 20,000 units subcutaneously today since he is due for his dose for this. (4) Constipation Qualifiers: Constipation type: unspecified constipation type Qualified Code(s): K59.00 - Constipation, unspecified Is this a current diagnosis for this admission?: Yes Plan: Much improved and almost resolved. We will continue to hold his PhosLo and iron for now but will probably resume it once he is discharged home. Continue the lactulose but make the Dulcolax as needed. - Notes Notes: If the patient continues to do well with his PD fluid exchanges the plan is to possibly send him home tomorrow. - Time Time with patient: Greater than 35 minutes Medications reviewed and adjusted accordingly: Yes
[2018-01-16] MEDS ORDERED: EPOETIN ALFA INJ 20,000 UNIT/1 ML VIAL (ONCOLOGY) SUBCUT ONE (13:00)
--- NOTE | 2018-01-16 13:28 | PDOC PROGRESS REPORT ---
Subjective Progress Note for:: 01/16/18 Subjective:: The patient is feeling quite weak today but in fact feels better than yesterday. His abdomen feels better and is not as distended. 01/12/2018-the patient actually feels slightly worse than yesterday. He is uncomfortable in general. His stomach, despite relief of his constipation, still does not feel back at baseline. He also noticed that his feet were reddened today. 01/14/2018-the patient has more distended abdomen. He has not been draining his peritoneal dialysis at [facility] and there is retained fluid. This is causing discomfort. Is also still struggling with constipation. 01/15/2018-he does seem to be in slightly better spirits today. His son is visiting. 01/16/2018-the patient certainly seems better today he has been ambulating in the [place]. He is only complaint has been the effects of his aggressive bowel regimen to treat his constipation. 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: ESRD PERITONITIS Physical Exam Vital Signs: Temp Pulse Resp BP Pulse Ox 98 F 80 18 130/60 H 100 01/16/18 12:30 01/16/18 12:30 01/16/18 12:30 01/16/18 12:30 01/16/18 12:30 Intake & Output 01/15/18 01/16/18 01/17/18 06:59 06:59 06:59 Intake Total 4562 9554 1000 Output Total 2500 37423 Balance 2061 -746 1000 Weight 58.8 kg 59.3 kg General appearance: PRESENT: no acute distress, cooperative, thin - Frail appearing Respiratory exam: PRESENT: clear to auscultation tata, rales, rhonchi, symmetrical, unlabored. ABSENT: prolonged expiratory phas, wheezes Cardiovascular exam: PRESENT: RRR, +S1, +S2, systolic murmur - 3/6 GI/Abdominal exam: PRESENT: normal bowel sounds, soft. ABSENT: distended, guarding, rigid, tenderness Extremities exam: PRESENT: pedal edema - Noticeable decrease in his edema. Skin exam: PRESENT: other - Small contusions on his leg are healing. Changes of chronic venous insufficiency. Very dry skin. Results Laboratory Results: 01/14/18 06:03 01/16/18 05:43 01/16/18 05:43 Sodium 129.6 L Potassium 5.0 Chloride 84 L Carbon Dioxide 29 Anion Gap 17 BUN 89 H Creatinine 7.73 H Est GFR ( Amer) 8 L Est GFR (Non-Af Amer) 7 L Glucose 165 H Calcium 7.8 L Phosphorus 3.5 Impressions: Abdomen/Pelvis CT 01/09/18 19:50 IMPRESSION: Moderate left pleural effusion. Cardiomegaly. Extensive atheromatous change. Slightly coarsened echotexture to the liver which could reflect early cirrhotic change. Catheter with the tip coiled in the right upper quadrant. Large amount of stool in the colon. TECHNICAL DOCUMENTATION: Quality ID # 436: Final reports with documentation of one or more dose reduction techniques (e.g., Automated exposure control, adjustment of the mA and/or kV according to patient size, use of iterative reconstruction technique) 2010 [employer]- All Rights Reserved KUB X-Ray 01/13/18 00:00 IMPRESSION: Constipation. Osseous findings as described. Chest X-Ray 01/15/18 00:00 IMPRESSION: Perihilar parenchymal opacity on the left. Cardiac enlargement without failure. Assessment & Plan - Diagnosis (1) Bacterial peritonitis Is this a current diagnosis for this admission?: Yes Plan: The patient is on vancomycin and ceftazidime. Dr. Eric is adjusting medications for his renal failure. His medications are being administered with his peritoneal dialysis. The peritoneal fluid is no growth at 24 hours. The patient does feel better at this time. 01/12/2018-he did well with dialysis today. He will remain on vancomycin and ceftazidime. I will discuss with nephrology how long they wish to continue the antibiotic therapy that is infused with his peritoneal dialysis it. 01/14/2018-continue vancomycin and ceftazidime. 01/15/2018-per Dr. Eric expected duration of antibiotic therapy is 2 weeks 01/16/2018-I had a chance to speak with Dr. Tee. The improvement in the patient's peritoneal dialysis cycling will probably allow discharge tomorrow. The patient's son did go to [facility] dialysis center and learned how to instill the antibiotics into the peritoneal dialysis. He will need a total of 3 weeks of intraperitoneal antibiotics. (2) ESRD (end stage renal disease) Is this a current diagnosis for this admission?: Yes (3) Anemia due to chronic kidney disease treated with erythropoietin Is this a current diagnosis for this admission?: Yes Plan: The patient does receive erythropoietin weekly. Dr. Eric is supervising that medication. He is already on iron therapy. Because his hemoglobin has dropped from 8.5-7.5 we will administer 1 unit of packed red blood cells today. Dr. Eric is aware and in agreement. 01/12/2018-the patient did receive 1 unit of packed red blood cells yesterday. His hemoglobin posttransfusion was 9.6 and is down to 8.5 today. I will recheck it again tomorrow. He continues on iron supplement and erythropoietin. 01/14/2018-hemoglobin is holding. He did receive a unit of packed red blood cells several days ago. He continues on iron and erythropoietin. 01/15/2018-erythropoietin per nephrology. Patient has declined his iron because it can be constipating. Anemia has been stable. 01/16/2018-since his transfusion of 1 unit of packed red blood cells his anemia has been stable if not slowly increasing. (4) Constipation Qualifiers: Constipation type: unspecified constipation type Qualified Code(s): K59.00 - Constipation, unspecified Is this a current diagnosis for this admission?: Yes Plan: Staff reports that the patient has had a very aggressive intervention for his constipation and it has been very effective. We will continue to monitor for recurrence. 01/12/2018-the patient's bowels have not quite settled. We did start a trial of Metamucil daily. We did discuss stool softeners and laxatives that he should avoid considering his renal failure. 01/14/2018-this is an ongoing struggle. He is receiving multiple treatments. I am going to add mineral oil enemas as he reports that the stool is fairly firm and difficult to pass. 01/15/2018-the patient states that he did move his bowels a bit with the mineral oil enema. He is on a fairly aggressive regimen. Hopefully things will break loose soon. 01/16/2018-the patient had an aggressive intervention yesterday. He is still having some loose stool but it is improving. I have discontinued the scheduled MiraLAX. He still has as needed medications available. (5) Venous insufficiency of both lower extremities Is this a current diagnosis for this admission?: Yes Plan: The discoloration in his feet is most likely due to venous insufficiency. 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 I explained to him that having his feet in a dependent position after keeping them elevated in bed for several days will likely cause this discoloration. I suggested that if he elevated his feet this would go away in approximately 2030 minutes. I did reassure him that this is not an acute concern. He may benefit from compression stocking therapy. 01/14/2018-unchanged 01/15/2018-stable. Continue current regimen. 01/16/2018-now that dialysis is improved he exhibits decreased fluid in his legs. He still has pigment deposition from chronic venous insufficiency. (6) Hypothyroid Is this a current diagnosis for this admission?: Yes Plan: Continue levothyroxine 100 mcg daily. 01/15/2018-asymptomatic. Continue current levothyroxine dose. 01/16/2018-no change in regimen (7) Coronary artery disease Qualifiers: Coronary Disease-Associated Artery/Lesion type: [place] artery [place] vs. transplanted heart: [place] heart Associated angina: angina presence unspecified Qualified Code(s): I25.10 - Atherosclerotic heart disease of [place] coronary artery without angina pectoris Is this a current diagnosis for this admission?: Yes Plan: Stable. No change in treatment plan. 01/15/2018-no cardiac symptoms. Continue current regimen. 01/16/2018-Remains asymptomatic. No changes at this time. - Time Time Spent with patient: 15-24 minutes Medications reviewed and adjusted accordingly: Yes
[2018-01-16] MEDS ORDERED: CEFTAZIDIME PENTAHYDRATE 1 GM in DEXTROSE 5%-WATER 50 ML IPER SCH (18:00)
[2018-01-16] MEDS ORDERED: CEFTAZIDIME INJ 1 GM VIAL IPER SCH ×2 (18:00→21:00)
[2018-01-16] MEDS: ATORVASTATIN CALCIUM 10 MG TABLET PO SCH (23:03)
[2018-01-16] MEDS: PHARMACY COMMUNICATION ORDER MC SCH (23:11)
[2018-01-17] MEDS: MORPHINE SULFATE 10 MG/ML INJ IV PRN ×2 (03:53→09:31)
[2018-01-17] MEDS: LEVOTHYROXINE SODIUM 0.1 MG TABLET PO SCH (06:55)
[2018-01-17] MEDS: LACTULOSE SYRUP 20 GM/30 ML UDCUP PO SCH ×2 (06:55→14:57)
[2018-01-17] MEDS: HEPARIN SOD (PORCINE) 5,000 UNIT/ML 1 ML SYRINGE SUBCUT SCH ×2 (06:56→14:18)
[2018-01-17 07:18] LABS: ANION GAP 14 (5-19); BLOOD UREA NITROGEN 96 mg/dL (7-20); CALCIUM 8.1 mg/dL (8.4-10.2); CARBON DIOXIDE 31 mmol/L (22-30); CHLORIDE 86 mmol/L (98-107); GLUCOSE 125 mg/dL (75-110); POTASSIUM 5.6 mmol/L (3.6-5.0); SODIUM 130.9 mmol/L (137-145); VANCOMYCIN,TROUGH 26.8 ug/mL (5.0-20.0)
[2018-01-17] MEDS: METOPROLOL SUCCINATE 25 MG TAB.SR.24H PO SCH (09:21)
[2018-01-17] MEDS: CALCITRIOL 0.25 MCG CAPSULE PO SCH (09:23)
[2018-01-17] MEDS: FOLIC ACID 1 MG TABLET PO SCH (09:23)
[2018-01-17] MEDS: ASPIRIN 81 MG TABLET, CHEWABLE PO SCH (09:23)
[2018-01-17] MEDS: MULTIVIT-STRESS FORMULA/ZINC TABLET PO SCH (09:24)
[2018-01-17] MEDS: LIDOCAINE 5% (700 MG) TRANSDERMAL ADH..PATCH TP SCH (09:26)
[2018-01-17] MEDS: DRONABINOL 2.5 MG CAPSULE PO SCH (09:26)
[2018-01-17] MEDS ORDERED: CEFTAZIDIME INJ 1 GM VIAL IPER SCH (10:00)
[2018-01-17] MEDS: OXYCODONE-ACETAMINOPHEN 5-325 MG TABLET PO PRN (10:05)
[2018-01-17] MEDS: GENTAMICIN SULFATE 0.1% CREAM 15 GM TP SCH (10:40)
[2018-01-17] MEDS ORDERED: EPOETIN ALFA INJ 20000 UNIT/1 ML VIAL (RENAL) SUBCUT ONE (15:15)
[2018-01-17 15:23] VITALS: BP 148/60
--- NOTE | 2018-01-17 17:02 | PDOC PROGRESS REPORT ---
Subjective Progress Note for:: 01/17/18 Subjective:: I saw the patient is morning and he seems to be feeling fine. He complained of some abdominal discomfort but claims that it is because of then PD fluid being infused in his abdomen. He has been refusing to have a fill volume of 1500 mL for the last couple of days with the nurses. Other than that he is doing well and is ready to go home. He does not have any other new complaints. He does not have any more problems with the peritoneal dialysis as it has been draining well after the constipation has improved. 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: ESRD PERITONITIS Physical Exam Vital Signs: Temp Pulse Resp BP Pulse Ox 98.1 F 72 19 148/60 H 100 01/17/18 15:13 01/17/18 15:13 01/17/18 15:13 01/17/18 15:13 01/17/18 15:13 Intake & Output 01/16/18 01/17/18 01/18/18 06:59 06:59 06:59 Intake Total 9554 5417 Output Total 57882 5600 1100 Balance -746 -183 -1100 Weight 59.3 kg 59.3 kg 59.4 kg Exam: General appearance: PRESENT: no acute distress, cooperative, well-developed, well-nourished Head exam: PRESENT: atraumatic, normocephalic Eye exam: PRESENT: conjunctiva pale, PERRLA. ABSENT: scleral icterus Neck exam: ABSENT: JVD Respiratory exam: PRESENT: Normal breath sounds. ABSENT: crackles, rales, rhonchi, unlabored, wheezes Cardiovascular exam: PRESENT: Regular rate rhythm -+S1, +S2. ABSENT: diastolic murmur, systolic murmur GI/Abdominal exam: PRESENT: normal bowel sounds, soft. ABSENT: guarding, mass, tenderness Extremities exam: Mild lower extremity edema Neurological exam: PRESENT: alert, awake, oriented to person, place and time. Skin exam: PRESENT: dry, warm, Cardiovascular exam: PRESENT: +S1, +S2, systolic murmur GI/Abdominal exam: PRESENT: hypoactive bowel sounds, soft, tenderness Results Laboratory Results: 01/14/18 06:03 01/17/18 06:01 01/17/18 06:01 Sodium 130.9 L Potassium 5.6 H Chloride 86 L Carbon Dioxide 31 H Anion Gap 14 BUN 96 H Creatinine 8.21 H Est GFR ( Amer) 8 L Est GFR (Non-Af Amer) 6 L Glucose 125 H Calcium 8.1 L Impressions: Abdomen/Pelvis CT 01/09/18 19:50 IMPRESSION: Moderate left pleural effusion. Cardiomegaly. Extensive atheromatous change. Slightly coarsened echotexture to the liver which could reflect early cirrhotic change. Catheter with the tip coiled in the right upper quadrant. Large amount of stool in the colon. TECHNICAL DOCUMENTATION: Quality ID # 436: Final reports with documentation of one or more dose reduction techniques (e.g., Automated exposure control, adjustment of the mA and/or kV according to patient size, use of iterative reconstruction technique) 2010 [employer]- All Rights Reserved KUB X-Ray 01/13/18 00:00 IMPRESSION: Constipation. Osseous findings as described. Chest X-Ray 01/15/18 00:00 IMPRESSION: Perihilar parenchymal opacity on the left. Cardiac enlargement without failure. Assessment & Plan - Diagnosis (1) Bacterial peritonitis Is this a current diagnosis for this admission?: Yes Plan: Patient is clinically better. Since his vancomycin trough level is still elevated at 26 he does not need any vancomycin intraperitoneally today. We will send patient home with intraperitoneal antibiotics namely vancomycin 750 mg IP every third day, first dose tomorrow and ceftazidime 1 g IVP daily. Patient's son was instructed how to infuse this intraperitoneal antibiotics and his dialysate fluid and was educated by our dialysis nurse last Tuesday. He also has the antibiotics already at home. The patient called his son, Brandon and his treating nurse today informing him of the plan and he is okay with it. Furthermore we will check the patient's vancomycin trough level on Tuesday to see if we need to adjust his dose. He will need this to antibiotics for 2 more weeks after discharge. We will follow him up at the [facility] dialysis unit on the scheduled dialysis clinic. Patient is aware of the plan and is agreeable with it. (2) ESRD (end stage renal disease) Is this a current diagnosis for this admission?: Yes Plan: Upon discharge patient will continue the same CCPD regimen at home. No change in prescriptions for now. (3) Anemia due to chronic kidney disease treated with erythropoietin Is this a current diagnosis for this admission?: Yes Plan: We will give Epogen 20,000 units subcutaneously prior to discharge today. (4) Constipation Qualifiers: Constipation type: unspecified constipation type Qualified Code(s): K59.00 - Constipation, unspecified Is this a current diagnosis for this admission?: Yes Plan: Resolved. Patient may resume his phosphorus binders and iron at home. - Notes Notes: Plan has been discussed with the patient, his son Will, his treating nurse today , and her [facility] dialysis nurses to follow-up on him. - Time Time with patient: 15-25 minutes
--- NOTE | 2018-01-17 18:10 | PDOC DISCHARGE SUMMARY ---
General - Admit/Disc Date/PCP Admission Date/Primary Care Provider: 01/10/18 02:40 CHAPARRITA VEGA MD Discharge Date: 01/17/18 - Discharge Diagnosis (1) ESRD (end stage renal disease) Is this a current diagnosis for this admission?: Yes Summary: 01/17/2018-patient has end-stage renal disease on peritoneal dialysis treated for bacterial peritonitis going home today on vancomycin and ceftriaxone to be given 20 Aleve by [facility] (2) Bacterial peritonitis Is this a current diagnosis for this admission?: Yes Summary: 03/19/2017-he is going to go home today to resume his peritoneal dialysis at home he is going to receive ceftazadime 1 g daily intraperitoneally but he is also going to receive IV vancomycin sound 50 mg tomorrow peritoneal he to be administrated by home health nurse and the next dose of vancomycin will be decided based on the peak and trough levels (3) Constipation Is this a current diagnosis for this admission?: Yes Summary: Is an 18-patient's constipation is resolved (4) Anemia due to chronic kidney disease treated with erythropoietin Is this a current diagnosis for this admission?: Yes Summary: 01/17/2018 patient has chronic anemia secondary to end-stage renal disease is getting erythropoietin weekly as an outpatient. Patient is also on iron therapy patient has 1 unit of blood transfusion during the hospital stay hemoglobin is relatively stable now (5) Coronary artery disease Is this a current diagnosis for this admission?: Yes Summary: 01/17/2018 patient history of chronic coronary artery disease patient is asymptomatic over the hospital course. - Additional Information Resuscitation Status: Full Code Discharge Diet: Cardiac, Other (Comments) Discharge Activity: Activity As Tolerated, Balance Activity w/Rest Prescriptions: Atorvastatin Calcium [Lipitor 10 mg Tablet] 10 mg PO QHS #30 tablet Ceftazidime [Fortaz] 1 gm IP DAILY #7 vial.port Clonazepam [Klonopin 1 mg Tablet] 1 mg PO Q12HP PRN #10 tablet PRN Reason: PTSD Dronabinol [Marinol 2.5 mg Capsule] 2.5 mg PO BID #10 capsule Oxycodone HCl/Acetaminophen [Percocet 10-325 mg Tablet] 1 each PO Q4HP PRN #20 tablet MDD 6 TABS PRN Reason: For Pain Vancomycin HCl in 5 % Dextrose [Vancomycin 750 mg/250 ml-D5w] 750 mg IP Q3D #7 plast..bag Home Medications: Aspirin [Aspirin 81 mg Chewable Tablet] 81 mg PO DAILY 04/07/15 Ferrous Sulfate [Feosol 325 mg Tablet] 975 mg PO BID 04/07/15 Folic Acid 1 mg PO DAILY 04/07/15 Calcium Acetate 667 mg PO MEALS 07/12/15 Amlodipine Besylate [Norvasc 5 mg Tablet] 5 mg PO DAILY 01/10/18 Cholecalciferol (Vitamin D3) [Vitamin D3 1000 Unit Tablet] 1,000 unit PO DAILY 01/10/18 Colchicine [Colchicine 0.6 mg Tablet] 0.6 mg PO DAILYP PRN 01/10/18 Fluticasone/Salmeterol [Advair HFA 115-21 mcg Inhaler] 2 puff IH Q12 01/10/18 Levothyroxine Sodium [Synthroid 0.112 mg Tablet] 0.112 mg PO Q6AM 01/10/18 Metoprolol Succinate [Toprol Xl 25 mg Tab.sr] 25 mg PO DAILY 01/10/18 Tiotropium Wing [Spiriva Respimat] 1 puff IH Q12 01/10/18 Vitamin B Complex [B Complex] 1 each PO DAILY 01/10/18 Atorvastatin Calcium [Lipitor 10 mg Tablet] 10 mg PO QHS #30 tablet 01/17/18 Ceftazidime [Fortaz] 1 gm IP DAILY #7 vial.port 01/17/18 Clonazepam [Klonopin 1 mg Tablet] 1 mg PO Q12HP PRN #10 tablet 01/17/18 Dronabinol [Marinol 2.5 mg Capsule] 2.5 mg PO BID #10 capsule 01/17/18 Oxycodone HCl/Acetaminophen [Percocet 10-325 mg Tablet] 1 each PO Q4HP PRN #20 tablet MDD 6 TABS 01/17/18 Vancomycin HCl in 5 % Dextrose [Vancomycin 750 mg/250 ml-D5w] 750 mg IP Q3D #7 plast..bag 01/17/18 History of Present Illness History of Present Illness: JULIANNA MCKEON JR is a 72 year old male with a past medical history of end-stage renal failure on peritoneal dialysis. He presents with 4 days of nausea and vomiting, constipation and diffuse abdominal pain. Prompting evaluation emergency room where he is found to have peritonitis with peritoneal fluid WBCs greater than [address] with significant fecal retention. He is started on vancomycin and ceftaz to the peritoneal fluid per recommendation of his math interventionist Dr. Femi Eric. Physical Exam Vital Signs: Temp Pulse Resp BP Pulse Ox 98.1 F 72 19 148/60 H 100 01/17/18 15:13 01/17/18 15:13 01/17/18 15:13 01/17/18 15:13 01/17/18 15:13 Intake & Output 01/16/18 01/17/18 01/18/18 06:59 06:59 06:59 Intake Total 9554 5417 Output Total 27623 5600 1100 Balance -746 183 -1100 Weight 59.3 kg 59.3 kg 59.4 kg General appearance: PRESENT: no acute distress Head exam: PRESENT: atraumatic Eye exam: PRESENT: PERRLA Neck exam: ABSENT: carotid bruit, JVD, lymphadenopathy, thyromegaly Respiratory exam: PRESENT: clear to auscultation tata. ABSENT: rales, rhonchi, wheezes Cardiovascular exam: PRESENT: RRR. ABSENT: diastolic murmur, rubs, systolic murmur GI/Abdominal exam: PRESENT: other - Patient has a peritoneal dialysis access Extremities exam: PRESENT: full ROM. ABSENT: calf tenderness, clubbing, pedal edema Neurological exam: PRESENT: alert, awake, oriented to person, oriented to place , oriented to time, oriented to situation, CN II-XII grossly intact. ABSENT: motor sensory deficit Psychiatric exam: PRESENT: appropriate affect, normal mood. ABSENT: homicidal ideation, suicidal ideation Results Laboratory Results: 01/14/18 06:03 01/17/18 06:01 01/17/18 06:01 Sodium 130.9 L Potassium 5.6 H Chloride 86 L Carbon Dioxide 31 H Anion Gap 14 BUN 96 H Creatinine 8.21 H Est GFR ( Amer) 8 L Est GFR (Non-Af Amer) 6 L Glucose 125 H Calcium 8.1 L Impressions: Abdomen/Pelvis CT 01/09/18 19:50 IMPRESSION: Moderate left pleural effusion. Cardiomegaly. Extensive atheromatous change. Slightly coarsened echotexture to the liver which could reflect early cirrhotic change. Catheter with the tip coiled in the right upper quadrant. Large amount of stool in the colon. TECHNICAL DOCUMENTATION: Quality ID # [id number]: Final reports with documentation of one or more dose reduction techniques (e.g., Automated exposure control, adjustment of the mA and/or kV according to patient size, use of iterative reconstruction technique) 2010 [employer]- All Rights Reserved KUB X-Ray 01/13/18 00:00 IMPRESSION: Constipation. Osseous findings as described. Chest X-Ray 01/15/18 00:00 IMPRESSION: Perihilar parenchymal opacity on the left. Cardiac enlargement without failure. Qualifiers - * PATIENT BEING DISCHARGED WITH ANY OF THE FOLLOWING DIAGNOSIS: No
== END 2018-01-17 17:00 | disposition home or self-care (01) | DRG 371 ==
LOC: ER 17:49 → EH 01-10 02:40 → OBSVTOIN 01-10 02:40 → 4N 01-10 05:40
PROVIDERS: ADMIT Internal Medicine; ATTEND Internal Medicine
PROC: 30233N1 Transfusion of Nonautologous Red Blood Cells into Peripheral Vein, Percutaneous Approach (ICD-10-PCS; principal; 2018-01-11)
PROC: 3E0234Z Introduction of Serum, Toxoid and Vaccine into Muscle, Percutaneous Approach (ICD-10-PCS; 2018-01-17)
DX: K65.9 Peritonitis, unspecified (principal); N18.6 End stage renal disease; I12.0 Hypertensive chronic kidney disease with stage 5 chronic kidney disease or end stage renal disease; N25.81 Secondary hyperparathyroidism of renal origin; E87.5 Hyperkalemia; D63.1 Anemia in chronic kidney disease; K59.00 Constipation, unspecified; E03.9 Hypothyroidism, unspecified; I87.2 Venous insufficiency (chronic) (peripheral); I48.91 Unspecified atrial fibrillation; I25.10 Atherosclerotic heart disease of native coronary artery without angina pectoris; F41.8 Other specified anxiety disorders; R11.2 Nausea with vomiting, unspecified; Z79.82 Long term (current) use of aspirin; Z79.899 Other long term (current) drug therapy; Z23 Encounter for immunization; Z99.2 Dependence on renal dialysis
CPT/HCPCS: 36415; 36430; 71045; 74018; 74176; 80048; 80053; 80069; 80202; 82607; 82728; 82746; 82962; 83540; 83550; 83690; 83735; 84100; 85025; 85045; 86850; 86900; 86901; 86920; 87070; 87075; 87205; 89050; 90471; 90686; 90945; 90947; 93005; 93010; 96365; 96366; 96368; 96375; 96376; 99285; A9270-GY; G0008; J0713; J0885; J1644; J2270; J2405; J3010; J3370; J3490; J7060; J7620; P9016; Q4081

== ENCOUNTER → 2018-01-20 | Outpatient (CLI) | payer MEDICARE, OTHER ==
[2018-01-20 13:28] LABS: VANCOMYCIN,TROUGH 24.2 ug/mL (5.0-20.0)
== END ==
LOC: OD 11:37
PROVIDERS: ATTEND Internal Medicine Nephrology
DX: K65.9 Peritonitis, unspecified (principal)
CPT/HCPCS: 36415; 80202

== ENCOUNTER → 2018-01-23 | Outpatient (CLI) | payer MEDICARE, OTHER ==
[2018-01-23 14:59] LABS: VANCOMYCIN,TROUGH 22.6 ug/mL (5.0-20.0)
== END ==
LOC: OD 13:30
PROVIDERS: ATTEND Internal Medicine Nephrology
DX: K65.9 Peritonitis, unspecified (principal)
CPT/HCPCS: 36415; 80202

== ENCOUNTER 2018-02-09 11:54 | Emergency (ER) | payer MEDICARE, OTHER ==
[2018-02-09] MEDS ORDERED: DIPHENHYDRAMINE HCL 25 MG CAPSULE PO PRN (12:33)
[2018-02-09] MEDS ORDERED: ACETAMINOPHEN 325 MG TABLET PO PRN (12:33)
[2018-02-09] MEDS ORDERED: NORMAL SALINE 250 ML IV PRN ×2 (12:33)
--- NOTE | 2018-02-09 12:35 | ER Document Report ---
ED Medical Screen (RME) - General Chief Complaint: Abnormal Lab Results Stated Complaint: ABNORMAL LABS Time Seen by Provider: 02/09/18 12:30 Notes: Pt presents to the ED with complaints of abnormal labs. Pt is a PD pt and performs his self-dialysis at home (last one this morning) with no issues. Pt states he was called and informed his hemoglobin was low and to go to the ED for a transfusion. Pt denies any current bleeding but states he was having bloody stools 5 days prior. Pt denies any pain, nausea and or vomiting. Pt is AOx4 and able to speak in full sentences. He looks very pale and conjunctiva is pale TRAVEL OUTSIDE OF THE [place] IN LAST 30 DAYS: No - Related Data Allergies/Adverse Reactions: Sulfa (Sulfonamide Antibiotics) Allergy (Verified 12/18/17 13:37) Past Medical History - Past Medical History Cardiac Medical History: Reports: Hx Atrial Fibrillation, Hx Coronary Artery Disease, Hx Hypertension Denies: Hx Heart Attack Pulmonary Medical History: Denies: Hx Asthma Neurological Medical History: Denies: Hx Cerebrovascular Accident, Hx Seizures Renal/ Medical History: Reports: Hx End Stage Renal Disease, Hx Peritoneal Dialysis GI Medical History: Reports: Hx Hiatal Hernia. Denies: Hx Hepatitis, Hx Ulcer Musculoskeltal Medical History: Reports Hx Arthritis Psychiatric Medical History: Denies: Hx Depression Infectious Medical History: Denies: Hx Hepatitis Past Surgical History: Reports: Hx Cardiac Catheterization, Hx Cardiac Surgery, Hx Open Heart Surgery. Denies: Hx Pacemaker Physical Exam - Vital signs Vitals: Temp Pulse Resp BP Pulse Ox 97.7 F 138 H 22 H 93/55 L 96 02/09/18 12:02/09/18 12:03 02/09/18 12:03 02/09/18 12:03 02/09/18 12:03 Course - Vital Signs Vital signs: Temp Pulse Resp BP Pulse Ox 97.7 F 138 H 22 H 93/55 L 96 02/09/18 12:02/09/18 12:03 02/09/18 12:03 02/09/18 12:03 02/09/18 12:03 Doctor's Discharge - Discharge Referrals: MAURICE WALLIS MD [Primary Care Provider] - Follow up as needed
[2018-02-09 13:09] LABS: ABSOLUTE EOSINOPHILS # (AUTO) 0.1 10^3/uL (0.0-0.6); ABSOLUTE LYMPHOCYTES (AUTO) 0.8 10^3/uL (0.5-4.7); ABSOLUTE MONOCYTES (AUTO) 0.8 10^3/uL (0.1-1.4); ABSOLUTE NEUT (AUTO) 6.2 10^3/uL (1.7-8.2); BASOPHILS % (AUTO) 0.6 % (0-2); EOSINOPHILS % (AUTO) 1.5 % (0-6); HEMATOCRIT 22.3 % (37.9-51.0); LYMPHOCYTES % (AUTO) 9.6 % (13-45); MEAN CORPUSCULAR HEMOGLOBIN 32.9 pg (27.0-33.4); MEAN CORPUSCULAR HGB CONC 31.4 g/dL (32.0-36.0); MONOCYTES % (AUTO) 10.6 % (3-13); PLATELET COUNT 171 10^3/uL (150-450); RED BLOOD COUNT 2.13 10^6/uL (4.35-5.55); RED CELL DISTRIBUTION WIDTH 19.2 % (11.5-14.0); SEGMENTED NEUTROPHILS % (AUTO) 77.7 % (42-78); TOTAL CELLS COUNTED % (AUTO) 100 %
[2018-02-09 13:21] LABS: MEAN CORPUSCULAR VOLUME 105 fl (80-97)
[2018-02-09 13:22] LABS: ALANINE AMINOTRANSFERASE 20 U/L (21-72); ALBUMIN 2.4 g/dL (3.5-5.0); ALKALINE PHOSPHATASE 74 U/L (38-126); ANION GAP 13 (5-19); ASPARTATE AMINO TRANSFERASE 18 U/L (17-59); BILIRUBIN,DIRECT 0.2 mg/dL (0.0-0.4); BILIRUBIN,TOTAL 0.2 mg/dL (0.2-1.3); BLOOD UREA NITROGEN 87 mg/dL (7-20); CALCIUM 7.9 mg/dL (8.4-10.2); CARBON DIOXIDE 23 mmol/L (22-30); CHLORIDE 109 mmol/L (98-107); GLUCOSE 90 mg/dL (75-110); SODIUM 145.4 mmol/L (137-145); TOTAL PROTEIN 5.2 g/dL (6.3-8.2)
--- NOTE | 2018-02-09 13:53 | ER Document Report ---
ED General - General Mode of Arrival: Ambulatory Information source: Patient TRAVEL OUTSIDE OF THE [place] IN LAST 30 DAYS: No <NELDA ROSE - Last Filed: 02/09/18 14:00> <KAYLAH KATZ - Last Filed: 02/09/18 16:00> - General Chief Complaint: Abnormal Lab Results Stated Complaint: ABNORMAL LABS Time Seen by Provider: 02/09/18 12:30 Notes: Patient is a 72 year old male on peritoneal dialysis (self dialyzed this morning ) was sent to the emergency department from [facility] due to low hemoglobin. Patient states he had blood work done at [facility] 2 days ago and was called this morning and instructed to go to the emergency department for a transfusion due to his hemoglobin being low. Patient states he has a history of this and has been transfused before. Patient only complains of generalized weakness further stating "I have no energy". Patient reports having a hemoglobin of 11.6 the last time he presented to the emergency department for different symptoms. Patient reports an unremarkable colonoscopy approximately 6 years ago. (NELDA ROSE) This 72-year-old male patient on peritoneal dialysis does the cycler PD through the night. He had outpatient lab work done at [facility] 2 days ago, was called today due to a hemoglobin of 7.0 and told to come to the emergency room for blood transfusion. When I consulted Dr. Wallis, I learned that she was told he had a hemoglobin of 7.0 and reported rectal bleeding. She states that is the reason she sent him here, otherwise she would have sent him to outpatient for his transfusion. The patient tells me he has not had any rectal bleeding. He has had anal irritation due to diarrhea for several days that has better now. He did submit a stool specimen here on Tuesday night as an outpatient and on record review I found that it was a stool culture and C. difficile testing but not guaiac testing. The culture and C. difficile were negative. I did discuss the case with his oil field laborer Dr. Eric when I first saw the patient, and he recommended that the patient get 2 units of blood and 2 PD exchanges. 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 Wallis, I did not know this because the call sheet did not indicate that was the case. On reviewing his labs today, it is noted that his potassium is 5.0 and his BUN and creatinine are higher than baseline, so the PD exchange is absolutely necessary to prevent his potassium from going higher from the transfused blood, and to prevent him from having fluid overload, as he does not make urine. (KAYLAH KATZ) - Related Data Allergies/Adverse Reactions: Sulfa (Sulfonamide Antibiotics) Allergy (Verified 12/18/17 13:37) Past Medical History - General Information source: Patient - Social History Smoking Status: Never Smoker Chew tobacco use (# tins/day): No Frequency of alcohol use: None Drug Abuse: None Family History: Hypertension Patient has suicidal ideation: No Patient has homicidal ideation: No - Past Medical History Cardiac Medical History: Reports: Hx Atrial Fibrillation, Hx Coronary Artery Disease, Hx Hypertension Renal/ Medical History: Reports: Hx End Stage Renal Disease, Hx Peritoneal Dialysis GI Medical History: Reports: Hx Hiatal Hernia Musculoskeletal Medical History: Reports Hx Arthritis Past Surgical History: Reports: Hx Cardiac Catheterization, Hx Cardiac Surgery, Hx Open Heart Surgery - Immunizations Hx Pneumococcal Vaccination: 11/28/14 <NELDA ROSE - Last Filed: 02/09/18 14:00> Review of Systems - Review of Systems Constitutional: See HPI, Weakness EENT: No symptoms reported Cardiovascular: No symptoms reported Respiratory: No symptoms reported Gastrointestinal: No symptoms reported Genitourinary: No symptoms reported Male Genitourinary: No symptoms reported Musculoskeletal: No symptoms reported Skin: No symptoms reported Hematologic/Lymphatic: No symptoms reported Neurological/Psychological: No symptoms reported -: Yes All other systems reviewed and negative <NELDA ROSE - Last Filed: 02/09/18 14:00> Physical Exam <NELDA ROSE - Last Filed: 02/09/18 14:00> <KAYLAH KATZ - Last Filed: 02/09/18 16:00> - Vital signs Vitals: Temp Pulse Resp BP Pulse Ox 97.7 F 138 H 22 H 93/55 L 96 02/09/18 12:03 02/09/18 12:03 02/09/18 12:03 02/09/18 12:03 02/09/18 12:03 - Notes Notes: GENERAL: Alert, interacts well. No acute distress. HEAD: Normocephalic, atraumatic. EYES: Pupils equal, round, and reactive to light. Extraocular movements intact. ENT: Oral mucosa moist, tongue midline. NECK: Full range of motion. Supple. Trachea midline. LUNGS: Clear to auscultation bilaterally, no wheezes, rales, or rhonchi. No respiratory distress. HEART: Regular rate and rhythm. No murmurs, gallops, or rubs. ABDOMEN: Soft, peritoneal dialysis catheter. Non-tender. Non-distended. Bowel sounds present in all 4 quadrants. EXTREMITIES: Moves all 4 extremities spontaneously. Chronic cellulitis and pitting edema in the BLE. NEUROLOGICAL: Alert and oriented x3. Normal speech. PSYCH: Normal affect, normal mood. SKIN: Pale. Warm and dry. (NELDA ROSE) Course - Laboratory Result Diagrams: 02/09/18 12:50 02/09/18 12:50 <NELDA ROSE - Last Filed: 02/09/18 14:00> - Laboratory Result Diagrams: 02/09/18 12:50 02/09/18 12:50 - Consults Dr. Wallis Time consulted: 14:52 Consulted provider: other - She will give the nurse the peritoneal dialysis orders for this patient. We both agree that the patient can safely be discharged home later tonight after he received the 2 units of packed red cells and the 2 PD exchanges. - Transfer of Care Care transferred to following provider: Dr. Garcia <KAYLAH KATZ - Last Filed: 02/09/18 16:00> - Vital Signs Vital signs: Temp Pulse Resp BP Pulse Ox 98.1 F 118 H 24 H 112/76 92 02/09/18 15:38 02/09/18 15:38 02/09/18 15:38 02/09/18 15:38 02/09/18 15:38 - Laboratory Laboratory results interpreted by me: 02/09/18 02/09/18 02/09/18 12:50 12:50 12:50 RBC 2.13 L Hgb 7.0 L Hct 22.3 L MCV 105 H D MCHC 31.4 L RDW 19.2 H Lymphocytes % 9.6 L Sodium 145.4 H Chloride 109 H BUN 87 H Creatinine 8.32 H Est GFR ( Amer) 8 L Est GFR (Non-Af Amer) 6 L Calcium 7.9 L ALT 20 L Total Protein 5.2 L Albumin 2.4 L Crossmatch See Detail - Transfer of Care Notes: 12/13/18 15:58 Patient will receive 2 units of packed RBCs, and 2 peritoneal dialysis exchanges lasting 4 hours each. Discharge instructions have been written and prescription signed. The patient will be ready for discharge after he finishes the transfusions and the [address] Wallis if any problems arise. (KAYLAH KATZ) Discharge <NELDA ROSE - Last Filed: 02/09/18 14:00> <KAYLAH KATZ - Last Filed: 02/09/18 16:00> - Discharge Clinical Impression: Dependence on peritoneal dialysis, Bilateral lower leg cellulitis, Anemia due to chronic kidney disease treated with erythropoietin Anemia Qualifiers: Anemia type: unspecified type Qualified Code(s): D64.9 - Anemia, unspecified Chronic renal failure Qualifiers: Chronic kidney disease stage: unspecified stage Qualified Code(s): N18.9 - Chronic kidney disease, unspecified Condition: Stable Additional Instructions: Start the antibiotics as prescribed tomorrow. Try to elevate your legs as much as possible to help the swelling go down. Start your normal nighttime peritoneal dialysis cycler tonight. Follow-up with Dr. Wallis tomorrow if any problems. RETURN TO THE EMERGENCY ROOM IF ANY NEW OR WORSENING SYMPTOMS. Prescriptions: Cephalexin Monohydrate [Keflex 500 mg Capsule] 500 mg PO QID #28 capsule Referrals: MAURICE WALLIS MD [ACTIVE STAFF] - Follow up as needed Scribe Attestation: 02/09/18 15:43 I personally performed the services described in the documentation, reviewed and edited the documentation which was dictated to the scribe in my presence, and it accurately records my words and actions. (KAYLAH KATZ) Scribe Documentation - Scribe Written by Scribe:: Gigi Box, 02/09/2018 acting as scribe for :: [place] <NELDA ROSE - Last Filed: 02/09/18 14:00>
[2018-02-09] MEDS ORDERED: CEPHALEXIN 500 MG CAPSULE PO ONE (15:40)
[2018-02-09] MEDS ORDERED: GENTAMICIN SULFATE 0.1% CREAM 15 GM TP ONE (15:55)
[2018-02-09 22:11] VITALS: BP 110/68
[2018-02-09] MEDS ORDERED: CEPHALEXIN 500 MG CAPSULE PO SCH (23:00)
== END 2018-02-09 22:42 | disposition home or self-care (01) ==
LOC: ER 11:54
DX: I12.0 Hypertensive chronic kidney disease with stage 5 chronic kidney disease or end stage renal disease (principal); N18.6 End stage renal disease; Z99.2 Dependence on renal dialysis; D63.1 Anemia in chronic kidney disease; R19.7 Diarrhea, unspecified; L03.116 Cellulitis of left lower limb; L03.115 Cellulitis of right lower limb; R53.1 Weakness; I25.10 Atherosclerotic heart disease of native coronary artery without angina pectoris; I10 Essential (primary) hypertension
CPT/HCPCS: 90935; 99284; 86900; 86901; 36415; 36430; 86850; 85025; 80053; 86920; P9016; A9270 ×2; J3490

== ENCOUNTER 2018-02-16 17:21 | Inpatient (IN) | payer MEDICARE, OTHER ==
[2018-02-16] MEDS ORDERED: NORMAL SALINE 250 ML IV PRN (17:43)
--- NOTE | 2018-02-16 17:44 | ER Document Report ---
ED Medical Screen (RME) - General Chief Complaint: Abnormal Lab Results Stated Complaint: ABNORMAL LABS Time Seen by Provider: 02/16/18 17:36 Notes: 72-year-old peritoneal dialysis patient was told to come to the emergency room for blood transfusion due to a low hemoglobin on lab work yesterday. He was seen here 6 days ago with hemoglobin 7.0 and received 2 units packed RBCs. During the transfusions he had 2 peritoneal dialysis exchanges, each lasting about 4 hours. Yesterday his hemoglobin was 6.3 and he does report that he has remained fatigued feeling since his prior visit. He normally does his peritoneal dialysis at night with a cycler machine. Dr. Eric had requested that he be called when the patient is seen, and that the patient be admitted by the hospitalist service. I have greeted and performed a rapid initial assessment of this patient. A comprehensive ED assessment and evaluation of the patient, analysis of test results and completion of the medical decision making process will be conducted by additional ED providers. TRAVEL OUTSIDE OF THE [place] IN LAST 30 DAYS: No - Related Data Allergies/Adverse Reactions: Sulfa (Sulfonamide Antibiotics) Allergy (Verified 12/18/17 13:37) Past Medical History - Social History Chew tobacco use (# tins/day): No Frequency of alcohol use: None Drug Abuse: None - Past Medical History Cardiac Medical History: Reports: Hx Atrial Fibrillation, Hx Coronary Artery Disease, Hx Hypertension Denies: Hx Heart Attack Pulmonary Medical History: Denies: Hx Asthma Neurological Medical History: Denies: Hx Cerebrovascular Accident, Hx Seizures Renal/ Medical History: Reports: Hx End Stage Renal Disease, Hx Peritoneal Dialysis GI Medical History: Reports: Hx Hiatal Hernia. Denies: Hx Hepatitis, Hx Ulcer Musculoskeltal Medical History: Reports Hx Arthritis Psychiatric Medical History: Denies: Hx Depression Infectious Medical History: Denies: Hx Hepatitis Past Surgical History: Reports: Hx Cardiac Catheterization, Hx Cardiac Surgery, Hx Open Heart Surgery. Denies: Hx Pacemaker Physical Exam - Vital signs Vitals: Temp Pulse Resp BP Pulse Ox 98.5 F 110 H 22 H 115/66 96 18 17:26 02/16/18 17:26 02/16/18 17:26 02/16/18 17:26 02/16/18 17:26 Course - Vital Signs Vital signs: Temp Pulse Resp BP Pulse Ox 98.5 F 110 H 22 H 115/66 96 12/20/18 17:26 02/16/18 17:26 02/16/18 17:26 02/16/18 17:26 02/16/18 17:26 Doctor's Discharge - Discharge Referrals: Basil ERIC MD [Primary Care Provider] - Follow up as needed
--- NOTE | 2018-02-16 18:18 | ER Document Report ---
ED General - General Chief Complaint: Abnormal Lab Results Stated Complaint: ABNORMAL LABS Time Seen by Provider: 02/16/18 17:36 Notes: 72-year-old male with history of peritoneal dialysis comes to the emergency department for abnormal lab values. Patient states that he had a hemoglobin of 6.3 that was done yesterday. Patient states that he was seen 6 days ago with a hemoglobin of 7.0. He received 2 units of packed red blood cells. During the transfusions he had 2 peritoneal dialysis exchanges lasting about 4 hours. Patient reports that he is feeling fatigued. He denies any melena, hematochezia, hematemesis. Patient also being treated for cellulitis to bilateral lower extremities by PCP at the [facility]. On doxycycline, keflex. Patient says the cellulitis is worsening. TRAVEL OUTSIDE OF THE [place] IN LAST 30 DAYS: No - HPI Onset: Yesterday Onset/Duration: Persistent Quality of pain: No pain Severity: None Pain Level: Denies Associated symptoms: None Exacerbated by: Denies Relieved by: Denies Similar symptoms previously: Yes Recently seen / treated by doctor: Yes - Related Data Allergies/Adverse Reactions: Sulfa (Sulfonamide Antibiotics) Allergy (Verified 02/16/18 18:16) Past Medical History - General Information source: Patient - Social History Smoking Status: Never Smoker Chew tobacco use (# tins/day): No Frequency of alcohol use: None Drug Abuse: None Family History: Hypertension Patient has suicidal ideation: No Patient has homicidal ideation: No - Past Medical History Cardiac Medical History: Reports: Hx Atrial Fibrillation, Hx Coronary Artery Disease, Hx Hypertension Denies: Hx Heart Attack Pulmonary Medical History: Denies: Hx Asthma Neurological Medical History: Denies: Hx Cerebrovascular Accident, Hx Seizures Renal/ Medical History: Reports: Hx End Stage Renal Disease, Hx Peritoneal Dialysis GI Medical History: Reports: Hx Hiatal Hernia. Denies: Hx Hepatitis, Hx Ulcer Musculoskeletal Medical History: Reports Hx Arthritis Psychiatric Medical History: Denies: Hx Depression Infectious Medical History: Denies: Hx Hepatitis Past Surgical History: Reports: Hx Cardiac Catheterization, Hx Cardiac Surgery, Hx Open Heart Surgery. Denies: Hx Pacemaker - Immunizations Hx Pneumococcal Vaccination: 11/28/14 Review of Systems - Review of Systems Constitutional: Weakness EENT: No symptoms reported Cardiovascular: No symptoms reported Respiratory: No symptoms reported Gastrointestinal: No symptoms reported Genitourinary: No symptoms reported Musculoskeletal: No symptoms reported Skin: Change in color, Rash Neurological/Psychological: No symptoms reported -: Yes All other systems reviewed and negative Physical Exam - Vital signs Vitals: Temp Pulse Resp BP Pulse Ox 98.5 F 110 H 22 H 115/66 96 02/16/18 17:26 02/16/18 17:26 02/16/18 17:26 02/16/18 17:26 02/16/18 17:26 - Notes Notes: PHYSICAL EXAMINATION: GENERAL: Pale, cachetic, ill appearing. HEAD: Atraumatic, normocephalic. EYES: Pupils equal round and reactive to light, extraocular movements intact, sclera anicteric, conjunctiva are normal. ENT: Nares patent, oropharynx clear without exudates. Moist mucous membranes. NECK: Normal range of motion, supple without lymphadenopathy LUNGS: Breath sounds clear to auscultation bilaterally and equal. No wheezes rales or rhonchi. HEART: Tachycardic. S1S2 ABDOMEN: Soft, nontender, nondistended abdomen. No guarding, no rebound. Peritoneal dialysis cath in place. Musculoskeletal: Normal range of motion, no pitting or edema. No cyanosis. Bilateral lower extremity cellulitis. RLE skin avulsion. NEUROLOGICAL: Cranial nerves grossly intact. Normal speech. Normal sensory, motor exams PSYCH: Normal mood, normal affect. SKIN: Warm, Dry, Cellulitis to bilateral lower extremities. Course - Re-evaluation Re-evalutation: 02/16/18 19:32 EKG: Ventricular rate 119, IN interval 03/02/1987, QRS duration 142, QTc 547, sinus tachycardia. Left bundle branch block. Left bundle branch block is old. EKG is similar to that done on 01/09/18. 02/16/18 20:48 Labs and imaging obtained. White blood cell count is normal. Lactic acid is normal. Patient's troponin is up from previous. No ST segment elevation appreciated on his EKG. Patient's potassium is within normal limits. Creatinine is chronically elevated. I contacted Dr. Eric as the patient's hemoglobin is 6.1. He is agreeable with the patient receiving 2 units of packed red blood cells and being admitted to the hospitalist for further evaluation. He recommends starting the patient on 1 g of vancomycin and 1 g of cefotaxime for the lower extremity cellulitis that his primary care physician has been treating outpatient with Keflex and doxycycline. He would like the patient to receive peritoneal dialysis every 6 hours with 1.5 L exchange and 1.5% solution. I contacted the hospitalist for admission. accepts the patient. - Vital Signs Vital signs: Temp Pulse Resp BP Pulse Ox 98.3 F 138 H 20 126/68 H 94 02/16/18 20:25 02/16/18 20:20 02/16/18 20:20 02/16/18 20:25 02/16/18 20:20 - Laboratory Result Diagrams: 02/16/18 18:57 02/16/18 18:57 Laboratory results interpreted by me: 02/16/18 02/16/18 02/16/18 18:57 18:57 18:57 RBC 1.94 L Hgb 6.1 L Hct 19.3 L MCV 100 H MCHC 31.8 L RDW 19.7 H Lymphocytes % 12.2 L Carbon Dioxide 20 L BUN 108 H Creatinine 8.37 H Est GFR ( Amer) 8 L Est GFR (Non-Af Amer) 6 L Calcium 7.7 L Total Protein 5.2 L Albumin 2.4 L Crossmatch See Detail Discharge - Discharge Clinical Impression: Bilateral lower leg cellulitis, Dependence on peritoneal dialysis Anemia Qualifiers: Anemia type: unspecified type Qualified Code(s): D64.9 - Anemia, unspecified Condition: Stable Disposition: ADMITTED INPATIENT Admitting Provider: Hospitalist Unit Admitted: IMCU Referrals: Basil ERIC MD [Primary Care Provider] - Follow up as needed
[2018-02-16] MEDS ORDERED: NORMAL SALINE 500 ML IV ONE (18:30)
[2018-02-16 19:23] LABS: ABSOLUTE LYMPHOCYTES (AUTO) 0.6 10^3/uL (0.5-4.7); ABSOLUTE MONOCYTES (AUTO) 0.4 10^3/uL (0.1-1.4); ABSOLUTE NEUT (AUTO) 3.6 10^3/uL (1.7-8.2); EOSINOPHILS % (AUTO) 0.7 % (0-6); HEMATOCRIT 19.3 % (37.9-51.0); LYMPHOCYTES % (AUTO) 12.2 % (13-45); MEAN CORPUSCULAR HEMOGLOBIN 31.7 pg (27.0-33.4); MEAN CORPUSCULAR HGB CONC 31.8 g/dL (32.0-36.0); MEAN CORPUSCULAR VOLUME 100 fl (80-97); MONOCYTES % (AUTO) 9.2 % (3-13); PLATELET COUNT 157 10^3/uL (150-450); RED BLOOD COUNT 1.94 10^6/uL (4.35-5.55); RED CELL DISTRIBUTION WIDTH 19.7 % (11.5-14.0); SEGMENTED NEUTROPHILS % (AUTO) 76.9 % (42-78); TOTAL CELLS COUNTED % (AUTO) 100 %; WHITE BLOOD COUNT 4.7 10^3/uL (4.0-10.5)
[2018-02-16 19:27] LABS: HEMOGLOBIN 6.1 g/dL (13.5-17.0)
[2018-02-16 19:38] LABS: ALANINE AMINOTRANSFERASE 23 U/L (21-72); ALBUMIN 2.4 g/dL (3.5-5.0); ALKALINE PHOSPHATASE 61 U/L (38-126); ANION GAP 17 (5-19); ASPARTATE AMINO TRANSFERASE 27 U/L (17-59); BILIRUBIN,DIRECT 0.3 mg/dL (0.0-0.4); BILIRUBIN,TOTAL 0.3 mg/dL (0.2-1.3); BLOOD UREA NITROGEN 108 mg/dL (7-20); CALCIUM 7.7 mg/dL (8.4-10.2); CARBON DIOXIDE 20 mmol/L (22-30); CHLORIDE 105 mmol/L (98-107); GLUCOSE 104 mg/dL (75-110); POTASSIUM 4.8 mmol/L (3.6-5.0); SODIUM 141.6 mmol/L (137-145); TOTAL PROTEIN 5.2 g/dL (6.3-8.2)
[2018-02-16] MEDS ORDERED: VANCOMYCIN HCL INJ 1000 MG VIAL IV ONE (20:27)
[2018-02-16] MEDS ORDERED: CEFTAZIDIME INJ 1 GM VIAL IV ONE (20:27)
[2018-02-16] MEDS ORDERED: MAGNESIUM HYDROXIDE SUSP 30 ML UDCUP PO PRN (20:48)
[2018-02-16] MEDS ORDERED: DEXTROSE 50%-WATER 25 GM/50 ML DISP.SYRIN IV PRN ×2 (20:48)
[2018-02-16] MEDS ORDERED: DEXTROSE 40% GEL 15 GM TUBE PO PRN ×2 (20:48)
[2018-02-16] MEDS ORDERED: GLUCAGON,HUMAN RECOMB 1 MG INJ IM PRN (20:48)
[2018-02-16] MEDS ORDERED: IPRATROPIUM/ALBUTEROL 0.5-2.5 MG/3 ML AMPUL NEB PRN (20:48)
[2018-02-16] MEDS ORDERED: MAG HYDROX/AL HYDROX/SIMETH SUSP 30 ML UDCUP PO PRN (20:48)
[2018-02-16] MEDS ORDERED: ACETAMINOPHEN 325 MG TABLET PO PRN (20:48)
[2018-02-16] MEDS ORDERED: (PENDING PHARMACY ID) (Oxycodone Hcl/Acetaminophen [Percocet 10-325 Mg Tablet] 1 EACH) PO PRN (20:51)
--- NOTE | 2018-02-16 21:24 | RADIOLOGY REPORT (SQ) ---
EXAM DESCRIPTION: XR ABDOMEN 2 VIEWS SUPINE ERECT COMPLETED DATE/TME: 02/16/2018 20:48 CLINICAL HISTORY: 72 years, Male, abd pain Findings: No free intraperitoneal air. Moderate amount of stool in the colon. Borderline dilated loops of small bowel. Pelvic peritoneal dialysis catheter catheter is in place. Moderate vascular calcification. IMPRESSION: Borderline dilated loops of small bowel may be due to ileus. Moderate amount of stool is also noted in the right colon and may be due to constipation.
[2018-02-16] MEDS ORDERED: OXYCODONE-ACETAMINOPHEN 5-325 MG TABLET PO PRN (21:30)
[2018-02-16] MEDS ORDERED: OXYCODONE HCL IR 5 MG TABLET PO PRN (21:31)
[2018-02-16] MEDS: ATORVASTATIN CALCIUM 10 MG TABLET PO SCH (22:01)
[2018-02-16] MEDS: METOPROLOL SUCCINATE 25 MG TAB.SR.24H PO SCH (22:01)
[2018-02-17] MEDS: CLONAZEPAM 1 MG TABLET PO PRN (01:02)
[2018-02-17] MEDS: HEPARIN SOD (PORCINE) 5,000 UNIT/ML 1 ML SYRINGE SUBCUT SCH ×4 (01:30→21:07)
[2018-02-17 01:34] LABS: CREATINE KINASE MB 14.7 ng/mL (<4.55)
[2018-02-17 01:37] LABS: TROPONIN I 0.247 ng/mL
[2018-02-17] MEDS ORDERED: VANCOMYCIN HCL INJ 1000 MG VIAL ONE (02:35)
[2018-02-17] MEDS ORDERED: TRAZODONE HCL 50 MG TABLET PO ONE (03:00)
[2018-02-17] MEDS ORDERED: CEFTAZIDIME INJ 1 GM VIAL ONE (03:42)
[2018-02-17] MEDS: FAMOTIDINE INJ/PF 20 MG/2 ML SDV IV SCH ×3 (04:20→22:36)
[2018-02-17 05:04] LABS: ABSOLUTE BASOPHILS # (AUTO) 0.1 10^3/uL (0.0-0.2); ABSOLUTE EOSINOPHILS # (AUTO) 0.1 10^3/uL (0.0-0.6); ABSOLUTE LYMPHOCYTES (AUTO) 0.7 10^3/uL (0.5-4.7); ABSOLUTE MONOCYTES (AUTO) 0.6 10^3/uL (0.1-1.4); ABSOLUTE NEUT (AUTO) 4.2 10^3/uL (1.7-8.2); EOSINOPHILS % (AUTO) 1.2 % (0-6); HEMATOCRIT 25.8 % (37.9-51.0); LYMPHOCYTES % (AUTO) 11.8 % (13-45); MEAN CORPUSCULAR HEMOGLOBIN 31.4 pg (27.0-33.4); MEAN CORPUSCULAR HGB CONC 32.9 g/dL (32.0-36.0); MONOCYTES % (AUTO) 10.9 % (3-13); PLATELET COUNT 142 10^3/uL (150-450); RED BLOOD COUNT 2.71 10^6/uL (4.35-5.55); RED CELL DISTRIBUTION WIDTH 18.8 % (11.5-14.0); SEGMENTED NEUTROPHILS % (AUTO) 75.1 % (42-78); TOTAL CELLS COUNTED % (AUTO) 100 %; WHITE BLOOD COUNT 5.6 10^3/uL (4.0-10.5)
[2018-02-17 05:16] LABS: HEMOGLOBIN 8.5 g/dL (13.5-17.0)
[2018-02-17 05:17] LABS: MEAN CORPUSCULAR VOLUME 95 fl (80-97)
[2018-02-17] MEDS: LEVOTHYROXINE SODIUM 0.112 MG TABLET PO SCH (05:20)
[2018-02-17 05:24] LABS: ANION GAP 15 (5-19); BLOOD UREA NITROGEN 108 mg/dL (7-20); CALCIUM 7.4 mg/dL (8.4-10.2); CARBON DIOXIDE 19 mmol/L (22-30); CHLORIDE 107 mmol/L (98-107); GLUCOSE 141 mg/dL (75-110); SODIUM 140.6 mmol/L (137-145)
[2018-02-17] MEDS ORDERED: NA PHOS,M-B/NA PHOS,DI-BA (ADULT) 133 ML ENEMA PR ONE (05:38)
[2018-02-17] MEDS ORDERED: LACTULOSE SYRUP 20 GM/30 ML UDCUP PO ONE (05:38)
[2018-02-17] MEDS ORDERED: MELATONIN PO PRN (05:50)
[2018-02-17] MEDS ORDERED: PYRIDOXINE HCL PO PRN (05:50)
--- NOTE | 2018-02-17 05:50 | PDOC H&P ---
History of Present Illness Admission Date/PCP: 02/16/18 21:04 Basil ERIC MD Patient complains of: Leg pain and fatigue History of Present Illness: JULIANNA MCKEON JR is a 72 year old male with a past medical history of end- stage renal failure on peritoneal dialysis, atrial fibrillation, coronary artery disease, hypertension, venous stasis with recurrent cellulitis of the leg and anemia of chronic disease. He presents to the emergency room for abnormal labs drawn yesterday resulting in a hemoglobin of 6.3. 6 days ago his hemoglobin was 7.0. In the emergency room his hemoglobin is found to be 6.1 and is ordered 2 units of packed red blood cells. He has no active source of bleed denying melena or or discolored peritoneal fluid.. He complains of bilateral leg pain and erythema for which he has been treated with Keflex and doxycycline. Patient's service center specialist Dr. Femi Eric gives orders for peritoneal dialysis every 6 hours with a 1.5 L exchange and 1.5% solution. , vancomycin and cefoxitin. He is referred to the hospitalist for admission Past Medical History Cardiac Medical History: Reports: Atrial Fibrillation, Coronary Artery Disease, Hypertension Denies: Myocardial Infarction Pulmonary Medical History: Denies: Asthma Neurological Medical History: Denies: Seizures Renal/ Medical History: Reports: End Stage Renal Disease GI Medical History: Reports: Hiatal Hernia Denies: Hepatitis Musculoskeltal Medical History: Reports: Arthritis Psychiatric Medical History: Denies: Depression Hematology: Reports: Anemia Denies: Sickle Cell Disease Past Surgical History Past Surgical History: Reports: Cardiac Catheterization Denies: Pacemaker Social History Information Source: Patient, Emergency Med Personnel, [facility] Records Smoking Status: Never Smoker Frequency of Alcohol Use: None Hx Recreational Drug Use: No Drugs: None Hx Prescription Drug Abuse: No - Advance Directive Resuscitation Status: Full Code Family History Family History: Hypertension Parental Family History Reviewed: Yes Children Family History Reviewed: Yes Sibling(s) Family History Reviewed.: Yes Medication/Allergy Home Medications: Aspirin [Aspirin 81 mg Chewable Tablet] 81 mg PO DAILY 02/16/18 Atorvastatin Calcium [Lipitor 10 mg Tablet] 10 mg PO QHS 02/16/18 Calcium Acetate [Phoslo 667 mg Capsule] 667 mg PO MEALS 02/16/18 Cephalexin Monohydrate [Keflex 500 mg Capsule] 500 mg PO QID 02/16/18 Cholecalciferol (Vitamin D3) [Vitamin D3 1000 Unit Tablet] 1,000 unit PO DAILY 02/16/18 Clonazepam [Klonopin] 0.5 mg PO Q12HP PRN 02/16/18 Colchicine [Colcrys 0.6 mg Tablet] 0.6 mg PO DAILYP PRN 02/16/18 Doxycycline Hyclate [Vibramycin 100 mg Tablet] 100 mg PO BID 02/16/18 Fluticasone/Salmeterol [Advair HFA 115-21 mcg Inhaler] 2 puff IH Q12 02/16/18 Folic Acid [Folvite 1 mg Tablet] 1 mg PO DAILY 02/16/18 Levothyroxine Sodium 112 mcg PO Q6AM 02/16/18 Megestrol Acetate 20 ml PO DAILY 02/16/18 Oxycodone HCl/Acetaminophen [Percocet 10-325 mg Tablet] 1 tab PO Q4HP PRN MDD 6 TABS IN 24 HOURS 02/16/18 Tiotropium Firth [Spiriva Respimat] 1 puff IH Q12 02/16/18 Vitamin B Complex 1 tab PO DAILY 02/16/18 Zolpidem Tartrate [Ambien] 10 mg PO HSP PRN 02/16/18 Docusate Sodium [Colace] 1 - 2 tab PO HSP PRN 02/17/18 Ferrous Sulfate [Iron] 325 mg PO TID 02/17/18 Lactulose 10 ml PO BID 02/17/18 Levofloxacin [Levaquin 500 mg Tablet] 500 mg PO DAILY 02/17/18 Melatonin/Pyridoxine HCl (B6) [Melatonin 5 mg Tablet] 1 each PO HSP PRN 02/17/18 Allergies/Adverse Reactions: Sulfa (Sulfonamide Antibiotics) Allergy (Verified 02/16/18 18:16) Review of Systems Constitutional: PRESENT: as per HPI, chills, fatigue, weakness. ABSENT: fever(s) Eyes: ABSENT: visual disturbances Ears: ABSENT: hearing changes Cardiovascular: ABSENT: chest pain, dyspnea on exertion, edema, orthropnea, palpitations Respiratory: ABSENT: cough, hemoptysis Gastrointestinal: PRESENT: bloating, constipation. ABSENT: abdominal pain, diarrhea, hematemesis, hematochezia, nausea, vomiting Genitourinary: ABSENT: dysuria, hematuria Musculoskeletal: PRESENT: muscle weakness. ABSENT: joint swelling Integumentary: PRESENT: wounds - Right leg ulcer. ABSENT: rash Neurological: ABSENT: abnormal gait, abnormal speech, confusion, dizziness, focal weakness, syncope Psychiatric: ABSENT: anxiety, depression, homidical ideation, suicidal ideation Endocrine: ABSENT: cold intolerance, heat intolerance, polydipsia, polyuria Hematologic/Lymphatic: PRESENT: as per HPI, easy bleeding, easy bruising, lymphadenopathy Physical Exam Vital Signs: Temp Pulse Resp BP Pulse Ox 97.9 F 134 H 22 H 130/89 H 100 02/17/18 01:51 02/17/18 02:00 02/17/18 01:51 02/17/18 01:51 02/17/18 01:51 Intake & Output 02/15/18 02/16/18 02/17/18 11:59 11:59 11:59 Intake Total 680 Balance 680 Weight 61.1 kg General appearance: PRESENT: cooperative, mild distress, thin - Cachexia with temporal wasting Head exam: PRESENT: atraumatic, normocephalic Eye exam: PRESENT: conjunctiva pink, EOMI, PERRLA. ABSENT: scleral icterus Ear exam: PRESENT: normal external ear exam Mouth exam: PRESENT: moist, tongue midline Neck exam: ABSENT: carotid bruit, JVD, lymphadenopathy, thyromegaly Respiratory exam: PRESENT: clear to auscultation tata. ABSENT: rales, rhonchi, wheezes Cardiovascular exam: PRESENT: RRR. ABSENT: diastolic murmur, rubs, systolic murmur Pulses: PRESENT: normal dorsalis pedis pul Vascular exam: PRESENT: normal capillary refill GI/Abdominal exam: PRESENT: normal bowel sounds, soft. ABSENT: distended, guarding, mass, organolmegaly, rebound, tenderness Rectal exam: PRESENT: deferred Gentrourinary exam: PRESENT: lacerations Extremities exam: PRESENT: full ROM, pedal edema, tenderness, other - Bilateral circumferential erythema, right lower leg 3 x 4 cm ulcer without exudate. ABSENT: joint swelling Neurological exam: PRESENT: alert, awake, oriented to person, oriented to place, oriented to time, oriented to situation, CN II-XII grossly intact. ABSENT: motor sensory deficit Psychiatric exam: PRESENT: appropriate affect, normal mood. ABSENT: homicidal ideation, suicidal ideation Skin exam: PRESENT: dry, erythema - Bright red legs bilaterally, intact, skin tears - 1 x 4 cm lateral skin tear to the left lumbar area, warm. ABSENT: cyanosis, rash Results Laboratory Results: 02/17/18 04:02 02/17/18 04:02 02/16/18 02/16/18 02/16/18 18:57 18:57 18:57 WBC 4.7 RBC 1.94 L Hgb 6.1 L Hct 19.3 L MCV 100 H MCH 31.7 MCHC 31.8 L RDW 19.7 H Plt Count 157 Seg Neutrophils % 76.9 Lymphocytes % 12.2 L Monocytes % 9.2 Eosinophils % 0.7 Basophils % 1.0 Absolute Neutrophils 3.6 Absolute Lymphocytes 0.6 Absolute Monocytes 0.4 Absolute Eosinophils 0.0 Absolute Basophils 0.0 Sodium 141.6 Potassium 4.8 Chloride 105 Carbon Dioxide 20 L Anion Gap 17 BUN 108 H Creatinine 8.37 H Est GFR ( Amer) 8 L Est GFR (Non-Af Amer) 6 L Glucose 104 Lactic Acid Calcium 7.7 L Phosphorus Total Bilirubin 0.3 AST 27 ALT 23 Alkaline Phosphatase 61 Total Protein 5.2 L Albumin 2.4 L Stool Occult Blood Blood Type A POSITIVE Antibody Screen NEGATIVE 02/16/18 02/16/18 02/16/18 18:57 18:57 23:20 WBC RBC Hgb Hct MCV MCH MCHC RDW Plt Count Seg Neutrophils % Lymphocytes % Monocytes % Eosinophils % Basophils % Absolute Neutrophils Absolute Lymphocytes Absolute Monocytes Absolute Eosinophils Absolute Basophils Sodium Potassium Chloride Carbon Dioxide Anion Gap BUN Creatinine Est GFR ( Amer) Est GFR (Non-Af Amer) Glucose Lactic Acid 0.9 Calcium Phosphorus 8.0 H Total Bilirubin AST ALT Alkaline Phosphatase Total Protein Albumin Stool Occult Blood POSITIVE Blood Type Antibody Screen 02/17/18 02/17/18 04:02 04:02 WBC 5.6 RBC 2.71 L Hgb 8.5 L D Hct 25.8 L MCV 95 D MCH 31.4 MCHC 32.9 RDW 18.8 H Plt Count 142 L Seg Neutrophils % 75.1 Lymphocytes % 11.8 L Monocytes % 10.9 Eosinophils % 1.2 Basophils % 1.0 Absolute Neutrophils 4.2 Absolute Lymphocytes 0.7 Absolute Monocytes 0.6 Absolute Eosinophils 0.1 Absolute Basophils 0.1 Sodium 140.6 Potassium 5.0 Chloride 107 Carbon Dioxide 19 L Anion Gap 15 BUN 108 H Creatinine 8.39 H Est GFR ( Amer) 8 L Est GFR (Non-Af Amer) 6 L Glucose 141 H Lactic Acid Calcium 7.4 L Phosphorus Total Bilirubin AST ALT Alkaline Phosphatase Total Protein Albumin Stool Occult Blood Blood Type Antibody Screen 02/16/18 02/17/18 02/17/18 18:57 01:02 01:02 Creatine Kinase 138 CK-MB (CK-2) 14.70 H Troponin I 0.253 0.247 Impressions: Abdomen X-Ray 02/16/18 20:48 IMPRESSION: Borderline dilated loops of small bowel may be due to ileus. Moderate amount of stool is also noted in the right colon and may be due to constipation. Assessment & Plan - Diagnosis (1) Anemia Qualifiers: Anemia type: unspecified type Qualified Code(s): D64.9 - Anemia, unspecified Is this a current diagnosis for this admission?: Yes Plan: Multifactorial secondary to chronic disease, end-stage renal failure and cellulitis. Transfuse packed red blood cells as needed, follow-up CBC and anemia workup (2) Bilateral lower leg cellulitis Is this a current diagnosis for this admission?: Yes Plan: Continue cefoxitin and vancomycin, consider surgical consultation. Follow-up CBC (3) Dependence on peritoneal dialysis Is this a current diagnosis for this admission?: Yes Plan: Peritoneal dialysis every 6 hours with 1.5 L exchange and 1.5% solution. Consider nephrology consult (4) Constipation Qualifiers: Constipation type: unspecified constipation type Qualified Code(s): K59.00 - Constipation, unspecified Is this a current diagnosis for this admission?: Yes Plan: Fleet enema and lactulose as tolerated. Follow-up chemistry - Time Time Spent: 50 to 70 Minutes - Inpatient Certification Medical Necessity: Need Close Monitoring Due to Risk of Patient Decompensation
[2018-02-17] MEDS ORDERED: ZOLPIDEM TARTRATE 5 MG TABLET PO PRN (06:15)
--- NOTE | 2018-02-17 07:52 | EKG REPORT ---
SEVERITY:- ABNORMAL ECG - SINUS TACHYCARDIA WITH IRREGULAR RATE [id number] FIRST DEGREE AV BLOCK LEFT BUNDLE BRANCH BLOCK INFERIOR Q WAVES, POSSIBLY DUE TO LBBB : Confirmed by: Kd Longoria MD 17-Feb-2018 07:51:43
[2018-02-17 08:03] LABS: CREATINE KINASE MB 13.3 ng/mL (<4.55); TROPONIN I 0.244 ng/mL
[2018-02-17] MEDS ORDERED: HEPARIN SOD (PORCINE) 1,000 UNIT/ML 10 ML VIAL INJ PRN (10:00)
[2018-02-17] MEDS: TIOTROPIUM BROMIDE DPI 5 CAP/KIT (18 MCG/CAP) IH SCH ×2 (10:38→22:36)
[2018-02-17] MEDS: CALCIUM ACETATE 667 MG CAPSULE PO SCH ×3 (10:39→19:40)
[2018-02-17] MEDS: ASPIRIN 81 MG TABLET, CHEWABLE PO SCH (10:39)
[2018-02-17] MEDS: MULTIVIT-STRESS FORMULA/ZINC TABLET PO SCH (10:39)
[2018-02-17] MEDS: METOPROLOL SUCCINATE 25 MG TAB.SR.24H PO SCH (10:40)
[2018-02-17] MEDS: CHOLECALCIFEROL (D3) 1,000 UNIT TABLET PO SCH (10:40)
[2018-02-17 13:34] LABS: FLUID SOURCE ABDOMEN; FLUID TYPE PERITONEAL
[2018-02-17 13:35] LABS: FLUID COLOR STRAW
[2018-02-17 13:36] LABS: FLUID APPEARANCE CLEAR; FLUID VISCOSITY LIQUID
[2018-02-17] MEDS: CEFTAZIDIME INJ 1 GM VIAL INJ SCH (13:47)
[2018-02-17] MEDS: LACTULOSE SYRUP 20 GM/30 ML UDCUP PO SCH (14:29)
[2018-02-17] MEDS: FERROUS SULFATE 325 MG TABLET PO SCH ×2 (14:36→19:40)
[2018-02-17] MEDS: MIDODRINE HCL 5 MG TABLET PO SCH ×2 (14:37→19:40)
[2018-02-17 14:44] LABS: CREATINE KINASE MB 14.8 ng/mL (<4.55); TROPONIN I 0.226 ng/mL
--- NOTE | 2018-02-17 16:46 | PDOC CONSULTATION ---
Consultation Consult Date: 02/17/18 Consult reason:: Severe Anemia, Cellulitis of legs, ESRD on pd. History of Present Illness Admission Date/PCP: 02/16/18 21:04 Basil ROMERO MD History of Present Illness: JULIANNA MCKEON JR is a 72 year old male with a past medical history of end- stage renal failure on peritoneal dialysis, atrial fibrillation, coronary artery disease, hypertension, venous stasis with recurrent cellulitis of the leg and anemia of chronic disease. He was sent to the ER because of worsening anemia which is reached around 6, increasing edema and shortness of breath, redness of his legs. In the emergency room his hemoglobin is found to be 6.1 and HAS BEEN GIVEN 2 units of packed red blood cells. He has no active source of bleed denying melena or or discolored peritoneal fluid.. He complains of bilateral leg pain and erythema for which he has been treated with Keflex and doxycycline as OP.Patient was discussed with the treating ER doctor last night and his PD orders were placed along with IV antibiotics in the form of vancomycin and ceftazidime. Patient was seen this morning. He says he is feeling better. He is being very cantankerous to the treating staff in the hospital. He has been transfused 2 units and is also making him feel better. He refuses to have 1.5 L exchanges and instead only taking 1 L. He also complains of constipation. Past Medical History Cardiac Medical History: Reports: Atrial Fibrillation, Coronary Artery Disease, Hypertension-primary Denies: Myocardial Infarction Pulmonary Medical History: Denies: Asthma Neurological Medical History: Denies: Seizures Renal/ Medical History: Reports: End Stage Renal Disease, Secondary Hyperpa rathyroidism GI Medical History: Reports: Hiatal Hernia Denies: Hepatitis Musculoskeltal Medical History: Reports: Arthritis Psychiatric Medical History: Denies: Depression Hematology Medical History: Reports Anemia of Chronic Kidney Disease Past Surgical History Past Surgical History: Reports: Cardiac Catheterization Denies: Pacemaker Social History Smoking Status: Never Smoker Frequency of Alcohol Use: None Hx Recreational Drug Use: No Drugs: None Hx Prescription Drug Abuse: No - Advance Directive Resuscitation Status: Full Code Family History Parental Family History Reviewed: Yes - Negative for ESRD Children Family History Reviewed: No Sibling(s) Family History Reviewed.: No Medication/Allergy Home Medications: Aspirin [Aspirin 81 mg Chewable Tablet] 81 mg PO DAILY 02/16/18 Atorvastatin Calcium [Lipitor 10 mg Tablet] 10 mg PO QHS 02/16/18 Calcium Acetate [Phoslo 667 mg Capsule] 667 mg PO MEALS 02/16/18 Cephalexin Monohydrate [Keflex 500 mg Capsule] 500 mg PO QID 02/16/18 Cholecalciferol (Vitamin D3) [Vitamin D3 1000 Unit Tablet] 1,000 unit PO DAILY 02/16/18 Clonazepam [Klonopin] 0.5 mg PO Q12HP PRN 02/16/18 Colchicine [Colcrys 0.6 mg Tablet] 0.6 mg PO DAILYP PRN 02/16/18 Doxycycline Hyclate [Vibramycin 100 mg Tablet] 100 mg PO BID 02/16/18 Fluticasone/Salmeterol [Advair HFA 115-21 mcg Inhaler] 2 puff IH Q12 02/16/18 Folic Acid [Folvite 1 mg Tablet] 1 mg PO DAILY 02/16/18 Levothyroxine Sodium 112 mcg PO Q6AM 02/16/18 Megestrol Acetate 20 ml PO DAILY 02/16/18 Oxycodone HCl/Acetaminophen [Percocet 10-325 mg Tablet] 1 tab PO Q4HP PRN MDD 6 TABS IN 24 HOURS 02/16/18 Tiotropium [place] [Spiriva Respimat] 1 puff IH Q12 02/16/18 Vitamin B Complex 1 tab PO DAILY 02/16/18 Zolpidem Tartrate [Ambien] 10 mg PO HSP PRN 02/16/18 Docusate Sodium [Colace] 1 - 2 tab PO HSP PRN 02/17/18 Ferrous Sulfate [Iron] 325 mg PO TID 02/17/18 Lactulose 10 ml PO BID 02/17/18 Levofloxacin [Levaquin 500 mg Tablet] 500 mg PO DAILY 02/17/18 Melatonin/Pyridoxine HCl (B6) [Melatonin 5 mg Tablet] 1 each PO HSP PRN 02/17/18 Allergies/Adverse Reactions: Sulfa (Sulfonamide Antibiotics) Allergy (Verified 02/16/18 18:16) Review of Systems Constitutional: PRESENT: fatigue, weakness, weight gain. ABSENT: anorexia, chills, fever(s), headache(s), night sweats Nose, Mouth, and Throat: ABSENT: mouth pain, sore throat Cardiovascular: PRESENT: dyspnea on exertion, edema, orthropnea. ABSENT: chest pain Respiratory: PRESENT: dyspnea. ABSENT: cough, hemoptysis Gastrointestinal: PRESENT: bloating. ABSENT: abdominal pain, coffee ground emesis, diarrhea Integumentary: PRESENT: lesions - Redness of both legs.. ABSENT: pruritus Neurological: ABSENT: abnormal speech, confusion, focal weakness Psychiatric: ABSENT: depression, hallucinations, suicidal ideation Hematologic/Lymphatic: ABSENT: easy bleeding, easy bruising, lymphadenopathy Physical Exam Vital Signs: Temp Pulse Resp BP Pulse Ox 97.4 F 139 H 17 107/83 98 02/17/18 07:59 02/17/18 07:59 02/17/18 07:59 02/17/18 07:59 02/17/18 07:59 Intake & Output 02/16/18 02/17/18 02/18/18 06:59 06:59 06:59 Intake Total 2180 Output Total 300 Balance 1880 Weight 65.5 kg General appearance: PRESENT: disheveled Eye exam: PRESENT: EOMI. ABSENT: nystagmus Mouth exam: PRESENT: moist, neck supple Neck exam: ABSENT: lymphadenopathy, meningismus, tenderness, thyromegaly, tracheal deviation Respiratory exam: PRESENT: clear to auscultation tata, decreased breath sounds. ABSENT: crackles Cardiovascular exam: PRESENT: +S1, +S2, systolic murmur GI/Abdominal exam: PRESENT: normal bowel sounds, soft. ABSENT: organomegaly, tenderness Extremities exam: PRESENT: +2 edema. ABSENT: calf tenderness, clubbing Neurological exam: PRESENT: alert, awake, oriented to person, oriented to place, oriented to time Psychiatric exam: PRESENT: appropriate affect Skin exam: PRESENT: erythema - Of both extremities indicative of early cellulitis. ABSENT: cyanosis, petechiae, rash Results Laboratory Results: 02/17/18 04:02 02/17/18 04:02 02/16/18 02/16/18 02/16/18 18:57 18:57 18:57 WBC 4.7 RBC 1.94 L Hgb 6.1 L Hct 19.3 L MCV 100 H MCH 31.7 MCHC 31.8 L RDW 19.7 H Plt Count 157 Seg Neutrophils % 76.9 Lymphocytes % 12.2 L Monocytes % 9.2 Eosinophils % 0.7 Basophils % 1.0 Absolute Neutrophils 3.6 Absolute Lymphocytes 0.6 Absolute Monocytes 0.4 Absolute Eosinophils 0.0 Absolute Basophils 0.0 Sodium 141.6 Potassium 4.8 Chloride 105 Carbon Dioxide 20 L Anion Gap 17 BUN 108 H Creatinine 8.37 H Est GFR ( Amer) 8 L Est GFR (Non-Af Amer) 6 L Glucose 104 Lactic Acid Calcium 7.7 L Phosphorus Total Bilirubin 0.3 AST 27 ALT 23 Alkaline Phosphatase 61 Total Protein 5.2 L Albumin 2.4 L Stool Occult Blood Blood Type A POSITIVE Antibody Screen NEGATIVE 02/16/18 02/16/18 02/16/18 18:57 18:57 23:20 WBC RBC Hgb Hct MCV MCH MCHC RDW Plt Count Seg Neutrophils % Lymphocytes % Monocytes % Eosinophils % Basophils % Absolute Neutrophils Absolute Lymphocytes Absolute Monocytes Absolute Eosinophils Absolute Basophils Sodium Potassium Chloride Carbon Dioxide Anion Gap BUN Creatinine Est GFR ( Amer) Est GFR (Non-Af Amer) Glucose Lactic Acid 0.9 Calcium Phosphorus 8.0 H Total Bilirubin AST ALT Alkaline Phosphatase Total Protein Albumin Stool Occult Blood POSITIVE Blood Type Antibody Screen 02/17/18 02/17/18 04:02 04:02 WBC 5.6 RBC 2.71 L Hgb 8.5 L D Hct 25.8 L MCV 95 D MCH 31.4 MCHC 32.9 RDW 18.8 H Plt Count 142 L Seg Neutrophils % 75.1 Lymphocytes % 11.8 L Monocytes % 10.9 Eosinophils % 1.2 Basophils % 1.0 Absolute Neutrophils 4.2 Absolute Lymphocytes 0.7 Absolute Monocytes 0.6 Absolute Eosinophils 0.1 Absolute Basophils 0.1 Sodium 140.6 Potassium 5.0 Chloride 107 Carbon Dioxide 19 L Anion Gap 15 BUN 108 H Creatinine 8.39 H Est GFR ( Amer) 8 L Est GFR (Non-Af Amer) 6 L Glucose 141 H Lactic Acid Calcium 7.4 L Phosphorus Total Bilirubin AST ALT Alkaline Phosphatase Total Protein Albumin Stool Occult Blood Blood Type Antibody Screen 02/16/18 02/17/18 02/17/18 18:57 01:02 01:02 Creatine Kinase 138 CK-MB (CK-2) 14.70 H Troponin I 0.253 0.247 02/17/18 02/17/18 07:15 07:15 Creatine Kinase 123 CK-MB (CK-2) 13.30 H Troponin I 0.244 Impressions: Abdomen X-Ray 02/16/18 20:48 IMPRESSION: Borderline dilated loops of small bowel may be due to ileus. Moderate amount of stool is also noted in the right colon and may be due to constipation. Assessment & Plan - Diagnosis (1) Anemia Qualifiers: Anemia type: unspecified type Qualified Code(s): D64.9 - Anemia, unspecified Is this a current diagnosis for this admission?: Yes Plan: Severe. Patient has been transfused. Check iron studies. Patient is very noncompliant with his medications and peritoneal dialysis and therefore some of this is dilutional.He has got early congestive heart failure which is also made worse by his severe anemia. (2) Bilateral lower leg cellulitis Is this a current diagnosis for this admission?: Yes Plan: After cultures were drawn patient has been begun on IP Vanc and daily Ceftazidime. (3) Dependence on peritoneal dialysis Is this a current diagnosis for this admission?: Yes Plan: Peritoneal dialysis orders have been placed and discussed with the treating nurse on the floor. He will get 1.5 L exchanges every 6 hours. Patient is cantankerous and demanded that he will decide whether he gets 1 or 1.5 L. Advised him that he should get the 1.5 L to extract and get the most benefit from his PD. (4) CHF (congestive heart failure) Qualifiers: Qualified Code(s): I50.41 - Acute combined systolic (congestive) and diastolic (congestive) heart failure (5) Constipation Qualifiers: Constipation type: unspecified constipation type Qualified Code(s): K59.00 - Constipation, unspecified Is this a current diagnosis for this admission?: Yes Plan: See response to proper compliant treatment regimen for PD. Monitor. (6) ESRD (end stage renal disease) Plan: On PD. Orders have been placed as mentioned earlier. Monitor. (7) Hypotension Plan: Starting low-dose of Midodrin and then see if he can extract more fluid often. Discussed with the treating nurse.
[2018-02-17] MEDS ORDERED: LACTULOSE PO SCH (18:00)
--- NOTE | 2018-02-17 18:54 | PDOC PROGRESS REPORT ---
Subjective Progress Note for:: 02/17/18 Subjective:: The patient is a 79-year-old male with a past medical history of end-stage renal failure (no longer making urine) on peritoneal dialysis, fibrillation, coronary artery disease, hypertension, arthritis, chronic anemia, and recurrent cellulitis of the legs who was admitted 02/16/18 for anemia and bilateral lower leg cellulitis. Patient is seen on afternoon rounds. He is found resting in bed comfortably on room air. Initially he was sleeping, but woke easily when I said his name. He reports slight dyspnea on exertion and fatigue but otherwise states that he is feeling much better. He does continue to have bilateral lower leg edema, erythema, and pain. He denies fever, chills, headache, dizziness, chest pain, palpitations, orthopnea, cough, abdominal pain, nausea vomiting and diarrhea. He has no new questions or concerns. No concerns per nursing. 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: SYMPTOMATIC ANEMIA, CELLULITIS, CKD Physical Exam Vital Signs: Temp Pulse Resp BP Pulse Ox 98.2 F 103 H 17 124/74 90 L 02/17/18 16:08 02/17/18 16:08 02/17/18 16:08 02/17/18 16:08 02/17/18 16:08 Intake & Output 02/16/18 02/17/18 02/18/18 06:59 06:59 06:59 Intake Total 2180 1500 Output Total 300 1350 Balance 1880 150 Weight 65.5 kg General appearance: PRESENT: no acute distress, thin, well-developed Head exam: PRESENT: atraumatic, normocephalic Eye exam: PRESENT: conjunctiva pale, EOMI, PERRLA. ABSENT: scleral icterus Ear exam: PRESENT: normal external ear exam Mouth exam: PRESENT: moist, tongue midline Neck exam: ABSENT: carotid bruit, JVD, lymphadenopathy, thyromegaly Respiratory exam: PRESENT: clear to auscultation tata, symmetrical, unlabored. ABSENT: rales, rhonchi, wheezes Cardiovascular exam: PRESENT: RRR, tachycardia. ABSENT: diastolic murmur, rubs, systolic murmur Pulses: PRESENT: normal dorsalis pedis pul Vascular exam: PRESENT: normal capillary refill GI/Abdominal exam: PRESENT: distended - currently w/ peritoneal dialysis fluid on board, normal bowel sounds, soft. ABSENT: guarding, mass, organolmegaly, rebound, tenderness Rectal exam: PRESENT: deferred Extremities exam: PRESENT: full ROM, +1 edema - BLE. ABSENT: calf tenderness, clubbing, pedal edema Neurological exam: PRESENT: alert, awake, oriented to person, oriented to place, oriented to time, oriented to situation, CN II-XII grossly intact. ABSENT: motor sensory deficit Psychiatric exam: PRESENT: appropriate affect, normal mood. ABSENT: homicidal ideation, suicidal ideation Skin exam: PRESENT: dry, erythema - BLE circumferential erythema with +1 nonpit ting edema. Right lower leg with a venous stasis ulcer; no drainage, clean dry dressing in place, intact, warm. ABSENT: cyanosis, rash Results Laboratory Results: 02/17/18 04:02 02/17/18 04:02 02/16/18 02/16/18 02/16/18 18:57 18:57 18:57 WBC 4.7 RBC 1.94 L Hgb 6.1 L Hct 19.3 L MCV 100 H MCH 31.7 MCHC 31.8 L RDW 19.7 H Plt Count 157 Seg Neutrophils % 76.9 Lymphocytes % 12.2 L Monocytes % 9.2 Eosinophils % 0.7 Basophils % 1.0 Absolute Neutrophils 3.6 Absolute Lymphocytes 0.6 Absolute Monocytes 0.4 Absolute Eosinophils 0.0 Absolute Basophils 0.0 Sodium 141.6 Potassium 4.8 Chloride 105 Carbon Dioxide 20 L Anion Gap 17 BUN 108 H Creatinine 8.37 H Est GFR ( Amer) 8 L Est GFR (Non-Af Amer) 6 L Glucose 104 Lactic Acid Calcium 7.7 L Phosphorus Total Bilirubin 0.3 AST 27 ALT 23 Alkaline Phosphatase 61 Total Protein 5.2 L Albumin 2.4 L Fluid Type Fluid Source Fluid Color Fluid Appearance Fluid Viscosity Fluid WBC Fluid RBC Stool Occult Blood Blood Type A POSITIVE Antibody Screen NEGATIVE 02/16/18 02/16/18 02/16/18 18:57 18:57 23:20 WBC RBC Hgb Hct MCV MCH MCHC RDW Plt Count Seg Neutrophils % Lymphocytes % Monocytes % Eosinophils % Basophils % Absolute Neutrophils Absolute Lymphocytes Absolute Monocytes Absolute Eosinophils Absolute Basophils Sodium Potassium Chloride Carbon Dioxide Anion Gap BUN Creatinine Est GFR ( Amer) Est GFR (Non-Af Amer) Glucose Lactic Acid 0.9 Calcium Phosphorus 8.0 H Total Bilirubin AST ALT Alkaline Phosphatase Total Protein Albumin Fluid Type Fluid Source Fluid Color Fluid Appearance Fluid Viscosity Fluid WBC Fluid RBC Stool Occult Blood POSITIVE Blood Type Antibody Screen 02/17/18 02/17/18 02/17/18 04:02 04:02 12:00 WBC 5.6 RBC 2.71 L Hgb 8.5 L D Hct 25.8 L MCV 95 D MCH 31.4 MCHC 32.9 RDW 18.8 H Plt Count 142 L Seg Neutrophils % 75.1 Lymphocytes % 11.8 L Monocytes % 10.9 Eosinophils % 1.2 Basophils % 1.0 Absolute Neutrophils 4.2 Absolute Lymphocytes 0.7 Absolute Monocytes 0.6 Absolute Eosinophils 0.1 Absolute Basophils 0.1 Sodium 140.6 Potassium 5.0 Chloride 107 Carbon Dioxide 19 L Anion Gap 15 BUN 108 H Creatinine 8.39 H Est GFR ( Amer) 8 L Est GFR (Non-Af Amer) 6 L Glucose 141 H Lactic Acid Calcium 7.4 L Phosphorus Total Bilirubin AST ALT Alkaline Phosphatase Total Protein Albumin Fluid Type PERITONEAL Fluid Source ABDOMEN Fluid Color STRAW Fluid Appearance CLEAR Fluid Viscosity LIQUID Fluid WBC 12 Fluid RBC 6 Stool Occult Blood Blood Type Antibody Screen 02/16/18 02/17/18 02/17/18 18:57 01:02 01:02 Creatine Kinase 138 CK-MB (CK-2) 14.70 H Troponin I 0.253 0.247 02/17/18 02/17/18 02/17/18 07:15 07:15 13:28 Creatine Kinase 123 133 CK-MB (CK-2) 13.30 H Troponin I 0.244 02/17/18 13:28 Creatine Kinase CK-MB (CK-2) 14.80 H Troponin I 0.226 Impressions: Abdomen X-Ray 02/16/18 20:48 IMPRESSION: Borderline dilated loops of small bowel may be due to ileus. Moderate amount of stool is also noted in the right colon and may be due to constipation. Assessment & Plan - Diagnosis (1) Anemia Qualifiers: Anemia type: unspecified type Qualified Code(s): D64.9 - Anemia, unspecified Is this a current diagnosis for this admission?: Yes Plan: Anemia of chronic disease; possibly worsened by fluid volume overload as indicated by Dr. Eric, human resources services specialist. Now status post 2 units packed red blood cells; Hgb 6.1--> 8.5 No evidence of active bleeding. Occult stool pending. We will defer erythropoietin or iron infusions to nephrology's expertise. Registered dietitian is consulted. We will monitor CBCs and transfuse as necessary. (2) Bilateral lower leg cellulitis Is this a current diagnosis for this admission?: Yes Plan: The patient does endorse frequent episodes of cellulitis to his lower extremities; likely component of peripheral vascular disease. WBCs are normal, patient is afebrile. Blood cultures are negative at 24 hours. The patient has been empirically placed on IV Fortaz and vancomycin; dosing per human resources services specialist recommendations. (3) Dependence on peritoneal dialysis Is this a current diagnosis for this admission?: Yes Plan: Nephrology is consulted; dialysis per their expertise. (4) Constipation Qualifiers: Constipation type: unspecified constipation type Qualified Code(s): K59.00 - Constipation, unspecified Is this a current diagnosis for this admission?: Yes Plan: Fleets enema x1 overnight. Lactulose daily. (5) Coronary artery disease Qualifiers: Coronary Disease-Associated Artery/Lesion type: [place] artery [place] vs. transplanted heart: lime heart Associated angina: without angina Qualified Code(s): I25.10 - Atherosclerotic heart disease of [place] coronary artery without angina pectoris Is this a current diagnosis for this admission?: Yes Plan: Without current chest pain. EKG demonstrated sinus tachycardia with left bundle branch block (chronic) Troponins were elevated to 0.253 on admission; have trended down x4 to 0.226 Discussed with cardiology, Dr. Mcadams, no indications that the patient is experiencing acute coronary syndrome. Will monitor on continuous cardiac telemetry. Continue daily aspirin and statin therapy. (6) Elevated troponin Is this a current diagnosis for this admission?: Yes Plan: Likely multifactorial secondary to severe anemia, underlying CHF and ASD R. Trending down x4. Discussed with cardiology; management as above. - Time Time Spent with patient: 15-24 minutes Medications reviewed and adjusted accordingly: Yes - Inpatient Certification Based on my medical assessment, after consideration of the patient's comorbidities, presenting symptoms, or acuity I expect that the services needed warrant INPATIENT care.: Yes I certify that my determination is in accordance with my understanding of Medicare's requirements for reasonable and necessary INPATIENT services [42 CFR 412.3e].: Yes Medical Necessity: Need For Continuous Telemetry Monitoring, Need for IV Antibiotics, Risk of Complication if Not Cared For in Hospital
[2018-02-17] MEDS ORDERED: (PENDING PHARMACY ID) (Fluticasone/Salmeterol [Advair Hfa 115-21 Mcg Inhaler] 2 PUFF) IH SCH (22:00)
[2018-02-17] MEDS: GENTAMICIN SULFATE 0.1% CREAM 15 GM TP PRN (22:36)
[2018-02-17] MEDS: ATORVASTATIN CALCIUM 10 MG TABLET PO SCH (22:36)
[2018-02-18] MEDS: TRAZODONE HCL 50 MG TABLET PO PRN (01:06)
[2018-02-18] MEDS: HEPARIN SOD (PORCINE) 5,000 UNIT/ML 1 ML SYRINGE SUBCUT SCH ×3 (05:17→22:00)
[2018-02-18] MEDS: LEVOTHYROXINE SODIUM 0.112 MG TABLET PO SCH (06:57)
[2018-02-18] MEDS: CALCIUM ACETATE 667 MG CAPSULE PO SCH ×3 (08:30→18:42)
[2018-02-18] MEDS ORDERED: (PENDING PHARMACY ID) (Vitamin B Complex [Vitamin B Complex] 1 TAB) PO SCH (10:00)
[2018-02-18 10:11] LABS: HEMATOCRIT 28.2 % (37.9-51.0); HEMOGLOBIN 9.3 g/dL (13.5-17.0); MEAN CORPUSCULAR HEMOGLOBIN 31.8 pg (27.0-33.4); MEAN CORPUSCULAR HGB CONC 32.9 g/dL (32.0-36.0); MEAN CORPUSCULAR VOLUME 97 fl (80-97); PLATELET COUNT 157 10^3/uL (150-450); RED BLOOD COUNT 2.92 10^6/uL (4.35-5.55); RED CELL DISTRIBUTION WIDTH 19.6 % (11.5-14.0); WHITE BLOOD COUNT 7.5 10^3/uL (4.0-10.5)
[2018-02-18] MEDS: CHOLECALCIFEROL (D3) 1,000 UNIT TABLET PO SCH (11:05)
[2018-02-18] MEDS: MULTIVIT-STRESS FORMULA/ZINC TABLET PO SCH (11:05)
[2018-02-18] MEDS: MIDODRINE HCL 5 MG TABLET PO SCH ×2 (11:05→14:04)
[2018-02-18] MEDS: FOLIC ACID 1 MG TABLET PO SCH (11:08)
[2018-02-18] MEDS: FERROUS SULFATE 325 MG TABLET PO SCH ×3 (11:08→18:43)
[2018-02-18] MEDS: LACTULOSE SYRUP 20 GM/30 ML UDCUP PO SCH (11:08)
[2018-02-18] MEDS: ASPIRIN 81 MG TABLET, CHEWABLE PO SCH (11:08)
[2018-02-18] MEDS: FAMOTIDINE INJ/PF 20 MG/2 ML SDV IV SCH (11:09)
[2018-02-18] MEDS: METOPROLOL SUCCINATE 25 MG TAB.SR.24H PO SCH (11:10)
[2018-02-18] MEDS: CEFTAZIDIME INJ 1 GM VIAL INJ SCH (11:14)
[2018-02-18] MEDS: TIOTROPIUM BROMIDE DPI 5 CAP/KIT (18 MCG/CAP) IH SCH ×2 (11:19→22:02)
[2018-02-18] MEDS ORDERED: DOCUSATE SODIUM 100 MG CAPSULE PO PRN (11:55)
[2018-02-18] MEDS: INSULIN LISPRO 100 UNIT/ML 3 ML VIAL SUBCUT PRN ×2 (14:07→22:03)
--- NOTE | 2018-02-18 15:05 | PDOC PROGRESS REPORT ---
Subjective Progress Note for:: 02/18/18 Subjective:: The patient is a 79-year-old male with a past medical history of end-stage renal failure (no longer making urine) on peritoneal dialysis, fibrillation, coronary artery disease, hypertension, arthritis, chronic anemia, and recurrent cellulitis of the legs who was admitted 02/16/18 for anemia and bilateral lower leg cellulitis. Patient is seen on morning rounds preparing for a dialysis session. He is found sitting up to the edge of the bed comfortably on supplemental oxygen at 2 lpm. He reports that he is feeling much better; stating "I have a little spunk back" and reporting that his dyspnea has nearly resolved. He does continue to have bilateral lower leg edema, erythema, and pain; though comments that the erythema appears to have lessened, especially to his RLE. He denies fever, chills, headache, dizziness, chest pain, palpitations, orthopnea, cough, abdominal pain, nausea vomiting and diarrhea. He has no new questions or concerns. No concerns per nursing. 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: SYMPTOMATIC ANEMIA, CELLULITIS, CKD Physical Exam Vital Signs: Temp Pulse Resp BP Pulse Ox 97.4 F 139 H 20 96/58 L 100 02/18/18 07:44 02/18/18 11:30 02/18/18 07:44 02/18/18 11:30 02/18/18 07:44 Intake & Output 02/17/18 02/18/18 02/19/18 06:59 06:59 06:59 Intake Total 2180 4500 1500 Output Total 300 4150 1000 Balance 1880 350 500 Weight 65.5 kg 63.1 kg 62 kg General appearance: PRESENT: no acute distress, thin, well-developed, well- nourished Head exam: PRESENT: atraumatic, normocephalic Eye exam: PRESENT: conjunctiva pink, EOMI, PERRLA. ABSENT: scleral icterus Ear exam: PRESENT: normal external ear exam Mouth exam: PRESENT: moist, tongue midline Neck exam: ABSENT: carotid bruit, JVD, lymphadenopathy, thyromegaly Respiratory exam: PRESENT: clear to auscultation tata, symmetrical, unlabored. ABSENT: rales, rhonchi, wheezes Cardiovascular exam: PRESENT: RRR. ABSENT: diastolic murmur, rubs, systolic murmur Pulses: PRESENT: normal dorsalis pedis pul Vascular exam: PRESENT: normal capillary refill GI/Abdominal exam: PRESENT: normal bowel sounds, soft. ABSENT: distended, guarding, mass, organolmegaly, rebound, tenderness Rectal exam: PRESENT: deferred Extremities exam: PRESENT: full ROM, +1 edema - BLE. ABSENT: calf tenderness, clubbing, pedal edema Neurological exam: PRESENT: alert, awake, oriented to person, oriented to place, oriented to time, oriented to situation, CN II-XII grossly intact. ABSENT: motor sensory deficit Psychiatric exam: PRESENT: appropriate affect, normal mood. ABSENT: homicidal ideation, suicidal ideation Skin exam: PRESENT: dry, erythema - Circumferential erythema to RLE; anterior erythema to LLE. +1 nonpitting edema bilaterally. Anterior 'L' shapped skin tear to RLE., warm. ABSENT: cyanosis, rash Results Laboratory Results: 02/18/18 09:15 02/17/18 04:02 02/18/18 09:15 WBC 7.5 RBC 2.92 L Hgb 9.3 L Hct 28.2 L MCV 97 MCH 31.8 MCHC 32.9 RDW 19.6 H Plt Count 157 02/16/18 02/17/18 02/17/18 18:57 01:02 01:02 Creatine Kinase 138 CK-MB (CK-2) 14.70 H Troponin I 0.253 0.247 02/17/18 02/17/18 02/17/18 07:15 07:15 13:28 Creatine Kinase 123 133 CK-MB (CK-2) 13.30 H Troponin I 0.244 02/17/18 02/18/18 13:28 09:15 Creatine Kinase CK-MB (CK-2) 14.80 H Troponin I 0.226 0.179 Impressions: Abdomen X-Ray 02/16/18 20:48 IMPRESSION: Borderline dilated loops of small bowel may be due to ileus. Moderate amount of stool is also noted in the right colon and may be due to constipation. Assessment & Plan - Diagnosis (1) Anemia Qualifiers: Anemia type: unspecified type Qualified Code(s): D64.9 - Anemia, unspecified Is this a current diagnosis for this admission?: Yes Plan: Improved and continuing to trend up. Anemia of chronic disease; possibly worsened by fluid volume overload as indicated by Dr. 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 Now status post 2 units packed red blood cells; Hgb 6.1--> 8.5--> 9.3 No evidence of active bleeding. Occult stool positive; will collect x 3. Pt denies melena, hematochezia. Will verify last colonoscopy and monitor for suitability for outpatient follow up. Start PPI. We will defer erythropoietin or iron infusions to nephrology's expertise. Registered dietitian is consulted. We will monitor CBCs and transfuse as necessary. (2) Bilateral lower leg cellulitis Is this a current diagnosis for this admission?: Yes Plan: Improved appearance; afebrile w/ nml WBC. The patient does endorse frequent episodes of cellulitis to his lower extremities; likely component of peripheral vascular disease. Blood cultures are negative at 24 hours. The patient has been empirically placed on IP Fortaz and vancomycin; dosing per nephrology. (3) Dependence on peritoneal dialysis Is this a current diagnosis for this admission?: Yes Plan: Nephrology is consulted; dialysis per their expertise. (4) Constipation Qualifiers: Constipation type: unspecified constipation type Qualified Code(s): K59.00 - Constipation, unspecified Is this a current diagnosis for this admission?: Yes Plan: Resolved. Lactulose and Colace daily. (5) Coronary artery disease Qualifiers: Coronary Disease-Associated Artery/Lesion type: [place] artery [place] vs. transplanted heart: [place] heart Associated angina: without angina Qualified Code(s): I25.10 - Atherosclerotic heart disease of [place] coronary artery without angina pectoris Is this a current diagnosis for this admission?: Yes Plan: Without current chest pain. EKG demonstrated sinus tachycardia with left bundle branch block (chronic) Troponins were elevated to 0.253 on admission; have trended down x4 to 0.179 Discussed with cardiology, Dr. Mcadams; no indications that the patient is experiencing acute coronary syndrome. Will monitor on continuous cardiac telemetry. Continue daily ASA and statin therapy. (6) Elevated troponin Is this a current diagnosis for this admission?: Yes Plan: Likely multifactorial secondary to severe anemia, underlying CHF and ESRD. Trending down x5. Discussed with cardiology; management as above. - Time Time Spent with patient: 15-24 minutes Anticipated discharge: Home with Homehealth Within: within 72 hours
--- NOTE | 2018-02-18 17:58 | PDOC PROGRESS REPORT ---
Subjective Progress Note for:: 02/18/18 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: Patient seen in the hospital today.His malaise is some improved posttransfusion. Shortness of breath is also some better.Denies any complaints of fever chills.No c/o chest pain. Has shortness of breath only if he exerts. He is more compliant with his dialysis and is listening to nurses recommendations a bit better than when he first came in.Blood pressure is still tenuous in spite of low-dose of Midodrin. His drainage is plus minus. He has been having some amounts of fibrin in his drain and we will had to be tackled.Constipation is much improved after appropriate treatments. Labs and medications were reviewed with the patient. Discussions were done with the treating nurse. Physical Exam Vital Signs: Temp Pulse Resp BP Pulse Ox 97.4 F 107 H 16 96/58 L 94 02/18/18 07:44 02/18/18 16:17 02/18/18 16:17 02/18/18 11:30 02/18/18 16:17 Intake & Output 02/17/18 02/18/18 02/19/18 06:59 06:59 06:59 Intake Total 2180 4500 1500 Output Total 300 4150 1000 Balance 1880 350 500 Weight 65.5 kg 63.1 kg 62 kg General appearance: PRESENT: no acute distress Respiratory exam: PRESENT: clear to auscultation tata, decreased breath sounds. ABSENT: crackles Cardiovascular exam: PRESENT: +S1, +S2, systolic murmur GI/Abdominal exam: PRESENT: normal bowel sounds, soft. ABSENT: organomegaly, tenderness Extremities exam: PRESENT: +2 edema Neurological exam: PRESENT: alert, awake, oriented to person Skin exam: PRESENT: erythema - Both lower extremities suggestive of early cellulitis. Results Laboratory Results: 02/18/18 09:15 02/17/18 04:02 02/18/18 09:15 WBC 7.5 RBC 2.92 L Hgb 9.3 L Hct 28.2 L MCV 97 MCH 31.8 MCHC 32.9 RDW 19.6 H Plt Count 157 02/16/18 02/17/18 02/17/18 18:57 01:02 01:02 Creatine Kinase 138 CK-MB (CK-2) 14.70 H Troponin I 0.253 0.247 02/17/18 02/17/18 02/17/18 07:15 07:15 13:28 Creatine Kinase 123 133 CK-MB (CK-2) 13.30 H Troponin I 0.244 02/17/18 02/18/18 13:28 09:15 Creatine Kinase CK-MB (CK-2) 14.80 H Troponin I 0.226 0.179 Impressions: Abdomen X-Ray 02/16/18 20:48 IMPRESSION: Borderline dilated loops of small bowel may be due to ileus. Moderate amount of stool is also noted in the right colon and may be due to constipation. Assessment & Plan - Diagnosis (1) Anemia Qualifiers: Anemia type: unspecified type Qualified Code(s): D64.9 - Anemia, unspecified Is this a current diagnosis for this admission?: Yes Plan: Status post transfusion. Ordered on erythropoietin. Monitor. No evidences of GI bleed. (2) Bilateral lower leg cellulitis Is this a current diagnosis for this admission?: Yes Plan: On vancomycin and ceftazidime. (3) Dependence on peritoneal dialysis Is this a current diagnosis for this admission?: Yes Plan: More compliant with her PD regimen now. Need to increase to 2.5% solutions to get an extract more fluid drained.Has fibrin deficits in his drain. Advised and discussed with the treating nurse to instill thousand units in one bag each day as long as he has it. (4) CHF (congestive heart failure) Qualifiers: Qualified Code(s): I50.41 - Acute combined systolic (congestive) and diastolic (congestive) heart failure Plan: Improving. Aim for more ultrafiltration. (5) Constipation Qualifiers: Constipation type: unspecified constipation type Qualified Code(s): K59.00 - Constipation, unspecified Is this a current diagnosis for this admission?: Yes Plan: Improved after his enema and lactulose. (6) ESRD (end stage renal disease) Plan: Patient will compliant with his PD regimen. Plan to extract more fluid titration of fluids. Advised more compliance to recommendations being placed in the hospital. (7) Hypotension Plan: No shara evidences of septic shock. Titrate Midodrin.
[2018-02-18] MEDS ORDERED: MIDODRINE HCL 5 MG TABLET PO SCH (18:00)
[2018-02-18] MEDS: HEPARIN SOD (PORCINE) 5,000 UNIT/ML 1 ML SYRINGE SUBCUT PRN (18:43)
[2018-02-18] MEDS ORDERED: MIDODRINE HCL 5 MG TABLET PO ONE (20:00)
[2018-02-18] MEDS: ATORVASTATIN CALCIUM 10 MG TABLET PO SCH (22:02)
[2018-02-19] MEDS: CLONAZEPAM 1 MG TABLET PO PRN ×2 (00:33→22:56)
[2018-02-19] MEDS: TRAZODONE HCL 50 MG TABLET PO PRN ×2 (01:03→22:56)
[2018-02-19 06:16] LABS: HEMATOCRIT 24.4 % (37.9-51.0); MEAN CORPUSCULAR HEMOGLOBIN 31.4 pg (27.0-33.4); MEAN CORPUSCULAR HGB CONC 32.7 g/dL (32.0-36.0); MEAN CORPUSCULAR VOLUME 96 fl (80-97); PLATELET COUNT 129 10^3/uL (150-450); RED BLOOD COUNT 2.54 10^6/uL (4.35-5.55); RED CELL DISTRIBUTION WIDTH 18.7 % (11.5-14.0); WHITE BLOOD COUNT 5.9 10^3/uL (4.0-10.5)
[2018-02-19 06:41] LABS: ANION GAP 15 (5-19); BLOOD UREA NITROGEN 112 mg/dL (7-20); CALCIUM 7.7 mg/dL (8.4-10.2); CARBON DIOXIDE 20 mmol/L (22-30); CHLORIDE 104 mmol/L (98-107); GLUCOSE 120 mg/dL (75-110); POTASSIUM 4.9 mmol/L (3.6-5.0); SODIUM 138.6 mmol/L (137-145)
[2018-02-19] MEDS: LANSOPRAZOLE 30 MG TAB.RAP.DR PO SCH (06:58)
[2018-02-19] MEDS: LEVOTHYROXINE SODIUM 0.112 MG TABLET PO SCH (06:58)
[2018-02-19] MEDS: HEPARIN SOD (PORCINE) 5,000 UNIT/ML 1 ML SYRINGE SUBCUT SCH ×3 (06:58→22:53)
[2018-02-19] MEDS: CALCIUM ACETATE 667 MG CAPSULE PO SCH ×3 (08:27→18:36)
[2018-02-19] MEDS: MULTIVIT-STRESS FORMULA/ZINC TABLET PO SCH (09:25)
[2018-02-19] MEDS: FERROUS SULFATE 325 MG TABLET PO SCH ×3 (09:26→18:36)
[2018-02-19] MEDS: ASPIRIN 81 MG TABLET, CHEWABLE PO SCH (09:26)
[2018-02-19] MEDS: CHOLECALCIFEROL (D3) 1,000 UNIT TABLET PO SCH (09:26)
[2018-02-19] MEDS: FOLIC ACID 1 MG TABLET PO SCH (09:26)
[2018-02-19] MEDS: HEPARIN SOD (PORCINE) 5,000 UNIT/ML 1 ML SYRINGE SUBCUT PRN (09:27)
[2018-02-19] MEDS: MEGESTROL ACETATE SUSP 400 MG/10 ML UDCUP PO SCH (09:28)
[2018-02-19] MEDS: CEFTAZIDIME INJ 1 GM VIAL INJ SCH (09:29)
[2018-02-19] MEDS: TIOTROPIUM BROMIDE DPI 5 CAP/KIT (18 MCG/CAP) IH SCH ×2 (09:29→22:57)
[2018-02-19] MEDS: METOPROLOL SUCCINATE 25 MG TAB.SR.24H PO SCH ×2 (09:35→10:27)
[2018-02-19] MEDS ORDERED: (PENDING PHARMACY ID) (Megestrol Acetate [Megestrol Acetate] 20 ML) PO SCH (10:00)
[2018-02-19] MEDS: LACTULOSE SYRUP 20 GM/30 ML UDCUP PO SCH (10:27)
--- NOTE | 2018-02-19 12:35 | PDOC PROGRESS REPORT ---
Subjective Progress Note for:: 02/19/18 Subjective:: The patient is a 79-year-old male with a past medical history of end-stage renal failure (no longer making urine) on peritoneal dialysis, fibrillation, coronary artery disease, hypertension, arthritis, chronic anemia, and recurrent cellulitis of the legs who was admitted 02/16/18 for anemia and bilateral lower leg cellulitis. Patient is seen on morning rounds. He is found resting in bed comfortably on room air; appears to use NC at 2lpm intermittently. He reports that he is feeling much better. He is encouraged that the erythema and pain to his BLE has improved dramatically overnight. He denies fever, chills, headache, dizziness, chest pain, palpitations, orthopnea, cough, abdominal pain, nausea vomiting and diarrhea. He does endorse slight dyspnea with activity. He has no new questions or concerns. No concerns per nursing. 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: SYMPTOMATIC ANEMIA, CELLULITIS, CKD Physical Exam Vital Signs: Temp Pulse Resp BP Pulse Ox 98.0 F 133 H 16 112/54 L 90 L 02/19/18 11:52 02/19/18 11:52 02/19/18 11:52 02/19/18 11:52 02/19/18 11:52 Intake & Output 02/18/18 02/19/18 02/20/18 06:59 06:59 06:59 Intake Total 4500 4722 1500 Output Total 4150 4100 1300 Balance 350 622 200 Weight 63.1 kg 65 kg 64.3 kg General appearance: PRESENT: no acute distress, well-developed, well-nourished Head exam: PRESENT: atraumatic, normocephalic Eye exam: PRESENT: conjunctiva pink, EOMI, PERRLA. ABSENT: scleral icterus Ear exam: PRESENT: normal external ear exam Mouth exam: PRESENT: moist, tongue midline Neck exam: ABSENT: carotid bruit, JVD, lymphadenopathy, thyromegaly Respiratory exam: PRESENT: clear to auscultation tata, symmetrical, unlabored. ABSENT: rales, rhonchi, wheezes Cardiovascular exam: PRESENT: RRR. ABSENT: diastolic murmur, rubs, systolic murmur Pulses: PRESENT: normal dorsalis pedis pul Vascular exam: PRESENT: normal capillary refill GI/Abdominal exam: PRESENT: normal bowel sounds, soft. ABSENT: distended, guarding, mass, organolmegaly, rebound, tenderness Rectal exam: PRESENT: deferred Extremities exam: PRESENT: full ROM, +1 edema - BLE; slight improvement from yesterdat. ABSENT: calf tenderness, clubbing, pedal edema Neurological exam: PRESENT: alert, awake, oriented to person, oriented to place, oriented to time, oriented to situation, CN II-XII grossly intact. ABSENT: motor sensory deficit Psychiatric exam: PRESENT: appropriate affect, normal mood. ABSENT: homicidal ideation, suicidal ideation Skin exam: PRESENT: dry, erythema - BLE erythema is significantly improved; now light pink in color, most notably to anterior surfaces. +1 edema bilaterally. Anterior 'L' shapped skin tear to RLE; no drainage present, warm. ABSENT: cyanosis, rash Results Laboratory Results: 02/19/18 06:00 02/19/18 06:00 02/19/18 02/19/18 06:00 06:00 WBC 5.9 RBC 2.54 L Hgb 8.0 L Hct 24.4 L MCV 96 MCH 31.4 MCHC 32.7 RDW 18.7 H Plt Count 129 L Sodium 138.6 Potassium 4.9 Chloride 104 Carbon Dioxide 20 L Anion Gap 15 BUN 112 H Creatinine 9.43 H Est GFR ( Amer) 7 L Est GFR (Non-Af Amer) 6 L Glucose 120 H Calcium 7.7 L 02/16/18 02/17/18 02/17/18 18:57 01:02 01:02 Creatine Kinase 138 CK-MB (CK-2) 14.70 H Troponin I 0.253 0.247 02/17/18 02/17/18 02/17/18 07:15 07:15 13:28 Creatine Kinase 123 133 CK-MB (CK-2) 13.30 H Troponin I 0.244 02/17/18 02/18/18 13:28 09:15 Creatine Kinase CK-MB (CK-2) 14.80 H Troponin I 0.226 0.179 Impressions: Abdomen X-Ray 02/16/18 20:48 IMPRESSION: Borderline dilated loops of small bowel may be due to ileus. Moderate amount of stool is also noted in the right colon and may be due to constipation. Assessment & Plan - Diagnosis (1) Anemia Qualifiers: Anemia type: unspecified type Qualified Code(s): D64.9 - Anemia, unspecified Is this a current diagnosis for this admission?: Yes Plan: Improved and continuing to trend up. Anemia of chronic disease; possibly worsened by fluid volume overload as indicated by Dr. Eric, homoeopath. Now status post 2 units packed red blood cells; Hgb 6.1--> 8.5--> 9.3--> 8.0 No evidence of active bleeding. Occult stool positive; will collect x 3. Pt denies melena, hematochezia. Will verify last colonoscopy and monitor for suitability for outpatient follow up. Start PPI. We will defer erythropoietin or iron infusions to nephrology's expertise. Registered dietitian is consulted. We will monitor CBCs and transfuse as necessary. (2) Bilateral lower leg cellulitis Is this a current diagnosis for this admission?: Yes Plan: Significant improvement; erythema nearly resolved, edema reduced, patient remains afebrile w/ nml WBC. The patient does endorse frequent episodes of cellulitis to his lower extremities; likely component of peripheral vascular disease. Blood cultures are negative at 24 hours. The patient has been empirically placed on IP Fortaz and vancomycin; dosing per nephrology. Anticipate transition to p.o. antibiotics within 1-2 days. (3) Dependence on peritoneal dialysis Is this a current diagnosis for this admission?: Yes Plan: Nephrology is consulted; dialysis per their expertise. (4) Constipation Qualifiers: Constipation type: unspecified constipation type Qualified Code(s): K59.00 - Constipation, unspecified Is this a current diagnosis for this admission?: Yes Plan: Resolved. Lactulose and Colace daily. (5) Coronary artery disease Qualifiers: Coronary Disease-Associated Artery/Lesion type: [place] artery [place] vs. transplanted heart: [place] heart Associated angina: without angina Qualified Code(s): I25.10 - Atherosclerotic heart disease of [place] coronary artery without angina pectoris Is this a current diagnosis for this admission?: Yes Plan: Without current chest pain. EKG demonstrated sinus tachycardia with left bundle branch block (chronic) Troponins were elevated to 0.253 on admission; have trended down x4 to 0.179 Discussed with cardiology, Dr. Mcadams; no indications that the patient is experiencing acute coronary syndrome. Will monitor on continuous cardiac telemetry. Continue daily ASA and statin therapy. (6) Elevated troponin Is this a current diagnosis for this admission?: Yes Plan: Likely multifactorial secondary to severe anemia, underlying CHF and ESRD. Trending down x5. Discussed with cardiology; management as above. - Time Time Spent with patient: Less than 15 minutes Medications reviewed and adjusted accordingly: Yes Anticipated discharge: Home Within: within 48 hours
[2018-02-19] MEDS: INSULIN LISPRO 100 UNIT/ML 3 ML VIAL SUBCUT PRN (13:26)
[2018-02-19] MEDS: MIDODRINE HCL 5 MG TABLET PO SCH (18:37)
[2018-02-19] MEDS: ATORVASTATIN CALCIUM 10 MG TABLET PO SCH (22:57)
[2018-02-20] MEDS ORDERED: VANCOMYCIN HCL INJ 500 MG VIAL INJ PRN (05:00)
[2018-02-20] MEDS: LEVOTHYROXINE SODIUM 0.112 MG TABLET PO SCH (05:26)
[2018-02-20] MEDS: LANSOPRAZOLE 30 MG TAB.RAP.DR PO SCH (05:26)
[2018-02-20 06:29] LABS: HEMOGLOBIN 8.5 g/dL (13.5-17.0); MEAN CORPUSCULAR HEMOGLOBIN 32.2 pg (27.0-33.4); MEAN CORPUSCULAR HGB CONC 32.7 g/dL (32.0-36.0); MEAN CORPUSCULAR VOLUME 98 fl (80-97); PLATELET COUNT 133 10^3/uL (150-450); RED BLOOD COUNT 2.64 10^6/uL (4.35-5.55); RED CELL DISTRIBUTION WIDTH 19.1 % (11.5-14.0); WHITE BLOOD COUNT 5.4 10^3/uL (4.0-10.5)
[2018-02-20] MEDS: HEPARIN SOD (PORCINE) 5,000 UNIT/ML 1 ML SYRINGE SUBCUT SCH ×3 (06:29→22:10)
[2018-02-20 06:55] LABS: ANION GAP 15 (5-19); BLOOD UREA NITROGEN 113 mg/dL (7-20); CALCIUM 7.7 mg/dL (8.4-10.2); CARBON DIOXIDE 21 mmol/L (22-30); CHLORIDE 103 mmol/L (98-107); GLUCOSE 108 mg/dL (75-110); POTASSIUM 5.3 mmol/L (3.6-5.0); SODIUM 138.8 mmol/L (137-145)
[2018-02-20] MEDS: CALCIUM ACETATE 667 MG CAPSULE PO SCH ×3 (08:53→17:41)
[2018-02-20] MEDS: FOLIC ACID 1 MG TABLET PO SCH (08:59)
[2018-02-20] MEDS: ASPIRIN 81 MG TABLET, CHEWABLE PO SCH (08:59)
[2018-02-20] MEDS: CEFTAZIDIME INJ 1 GM VIAL INJ SCH (08:59)
[2018-02-20] MEDS: FERROUS SULFATE 325 MG TABLET PO SCH ×3 (08:59→17:41)
[2018-02-20] MEDS: METOPROLOL SUCCINATE 25 MG TAB.SR.24H PO SCH (08:59)
[2018-02-20] MEDS: CHOLECALCIFEROL (D3) 1,000 UNIT TABLET PO SCH (09:00)
[2018-02-20] MEDS: LACTULOSE SYRUP 20 GM/30 ML UDCUP PO SCH (09:00)
[2018-02-20] MEDS: MULTIVIT-STRESS FORMULA/ZINC TABLET PO SCH (09:00)
[2018-02-20] MEDS: MIDODRINE HCL 5 MG TABLET PO SCH ×3 (09:00→17:41)
[2018-02-20] MEDS: TIOTROPIUM BROMIDE DPI 5 CAP/KIT (18 MCG/CAP) IH SCH ×2 (09:01→22:13)
[2018-02-20] MEDS: MEGESTROL ACETATE SUSP 400 MG/10 ML UDCUP PO SCH (09:02)
[2018-02-20] MEDS ORDERED: MELATONIN 5 MG TABLET PO PRN (09:42)
--- NOTE | 2018-02-20 10:37 | PDOC PROGRESS REPORT ---
Subjective Progress Note for:: 02/20/18 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: Patient seen this morning. Is continuing to feel better. However he still short of breath with exertion. Pedal edema still persistent though he is believes the redness is getting better. No complaints of any fever chills or rigors. Labs and medications were reviewed with the patient and the treating nurse. Apparently he has been having some issues and taking his medications according to the nurse especially metoprolol. Physical Exam Vital Signs: Temp Pulse Resp BP Pulse Ox 97.7 F 148 H 18 112/78 93 02/20/18 07:05 02/20/18 07:05 02/20/18 07:05 02/20/18 07:05 02/20/18 07:05 Intake & Output 02/19/18 02/20/18 02/21/18 06:59 06:59 06:59 Intake Total 4722 6000 Output Total 4100 6100 Balance 622 -100 Weight 65 kg 67.8 kg General appearance: PRESENT: no acute distress Respiratory exam: PRESENT: clear to auscultation tata, decreased breath sounds. ABSENT: crackles Cardiovascular exam: PRESENT: +S1, +S2, systolic murmur GI/Abdominal exam: PRESENT: normal bowel sounds, soft. ABSENT: organomegaly, tenderness Extremities exam: PRESENT: +1 edema - With bilateral erythema though they are improving. Neurological exam: PRESENT: alert, awake, oriented to person, oriented to place Psychiatric exam: PRESENT: anxious Skin exam: PRESENT: erythema. ABSENT: mottled, rash Results Laboratory Results: 02/20/18 06:12 02/20/18 06:12 02/20/18 02/20/18 06:12 06:12 WBC 5.4 RBC 2.64 L Hgb 8.5 L Hct 26.0 L MCV 98 H MCH 32.2 MCHC 32.7 RDW 19.1 H Plt Count 133 L Sodium 138.8 Potassium 5.3 H Chloride 103 Carbon Dioxide 21 L Anion Gap 15 BUN 113 H Creatinine 9.65 H Est GFR ( Amer) 6 L Est GFR (Non-Af Amer) 5 L Glucose 108 Calcium 7.7 L 02/16/18 02/17/18 02/17/18 18:57 01:02 01:02 Creatine Kinase 138 CK-MB (CK-2) 14.70 H Troponin I 0.253 0.247 02/17/18 02/17/18 02/17/18 07:15 07:15 13:28 Creatine Kinase 123 133 CK-MB (CK-2) 13.30 H Troponin I 0.244 02/17/18 02/18/18 13:28 09:15 Creatine Kinase CK-MB (CK-2) 14.80 H Troponin I 0.226 0.179 Impressions: Abdomen X-Ray 02/16/18 20:48 IMPRESSION: Borderline dilated loops of small bowel may be due to ileus. Moderate amount of stool is also noted in the right colon and may be due to constipation. Assessment & Plan - Diagnosis (1) Anemia Qualifiers: Anemia type: unspecified type Qualified Code(s): D64.9 - Anemia, unspecified Is this a current diagnosis for this admission?: Yes Plan: Status post transfusion. Ordered on erythropoietin. Monitor. No evidences of GI bleed. (2) Bilateral lower leg cellulitis Is this a current diagnosis for this admission?: Yes Plan: On vancomycin and ceftazidime.He is due for vancomycin today. Check Vanco trough levels. (3) Dependence on peritoneal dialysis Is this a current diagnosis for this admission?: Yes Plan: More compliant with her PD regimen now. Discussed with the treating nurse to instill 4.25% bags now and see how much he can extract as he does not seem to have much extraction with the earlier installation of the 2.5%.Once his edema is a whole lot improved that he can be discharged home (4) CHF (congestive heart failure) Qualifiers: Qualified Code(s): I50.41 - Acute combined systolic (congestive) and diastolic (congestive) heart failure Plan: Improving. Aim for more ultrafiltration.See the response to change in his PD regimen. (5) Constipation Qualifiers: Constipation type: unspecified constipation type Qualified Code(s): K59.00 - Constipation, unspecified Is this a current diagnosis for this admission?: Yes Plan: Improved after his enema and lactulose. (6) ESRD (end stage renal disease) Plan: Patient now better compliant with his PD regimen. See the response to change in his PD regimen. (7) Hypotension Plan: More stable. Titrate Midodrin.
[2018-02-20 11:47] LABS: PATH REVIEW PATHOLOGIST REVIEWED
[2018-02-20] MEDS ORDERED: ACETAMINOPHEN 325 MG TABLET PO PRN (12:25)
[2018-02-20] MEDS: INSULIN LISPRO 100 UNIT/ML 3 ML VIAL SUBCUT PRN (13:26)
--- NOTE | 2018-02-20 15:36 | PDOC PROGRESS REPORT ---
Subjective Progress Note for:: 02/20/18 Subjective:: The patient is a 79-year-old male with a past medical history of end-stage renal failure (no longer making urine) on peritoneal dialysis, fibrillation, coronary artery disease, hypertension, arthritis, chronic anemia, and recurrent cellulitis of the legs who was admitted 02/16/18 for anemia and bilateral lower leg cellulitis. Patient is seen on morning rounds. He is found sitting up to the edge of the bed comfortably on NC at 2lpm. He is agitated and argumentative with me today. He is asking to be discharged home as his legs are looking better. We discussed that his HR is elevated (130s) w/ report that he has been declining metoprolol; will not discuss reason for refusal and only wants to talk with me about going home today. He is informed that if he is compliant with metoprolol resulting in improved HR and nephrology approves, he would likely be discharged within the next 1-2 days. He denies fever, chills, headache, dizziness, chest pain, palpitations, orthopnea, dyspnea, cough, abdominal pain, nausea vomiting and diarrhea. No concerns per nursing. 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: SYMPTOMATIC ANEMIA, CELLULITIS, CKD Physical Exam Vital Signs: Temp Pulse Resp BP Pulse Ox 97.8 F 132 H 18 106/67 88 L 02/20/18 10:51 02/20/18 14:00 02/20/18 10:51 02/20/18 11:35 02/20/18 10:51 Intake & Output 02/19/18 02/20/18 02/21/18 06:59 06:59 06:59 Intake Total 4722 6000 1974 Output Total 4100 6100 1500 Balance 622 -100 474 Weight 65 kg 67.8 kg 66.7 kg General appearance: PRESENT: no acute distress, well-developed, well-nourished. ABSENT: cooperative Head exam: PRESENT: atraumatic, normocephalic Eye exam: PRESENT: conjunctiva pink, EOMI, PERRLA. ABSENT: scleral icterus Ear exam: PRESENT: normal external ear exam Mouth exam: PRESENT: moist, tongue midline Neck exam: ABSENT: carotid bruit, JVD, lymphadenopathy, thyromegaly Respiratory exam: PRESENT: clear to auscultation tata, symmetrical, unlabored. ABSENT: rales, rhonchi, wheezes Cardiovascular exam: PRESENT: +S1, +S2, tachycardia. ABSENT: diastolic murmur, rubs, systolic murmur Pulses: PRESENT: normal dorsalis pedis pul Vascular exam: PRESENT: normal capillary refill GI/Abdominal exam: PRESENT: normal bowel sounds, soft. ABSENT: distended, guarding, mass, organolmegaly, rebound, tenderness Rectal exam: PRESENT: deferred Extremities exam: PRESENT: full ROM, +1 edema - BLE. ABSENT: calf tenderness, clubbing, pedal edema Neurological exam: PRESENT: alert, awake, oriented to person, oriented to place, oriented to time, oriented to situation, CN II-XII grossly intact. ABSENT: motor sensory deficit Psychiatric exam: PRESENT: agitated, appropriate affect. ABSENT: homicidal ideation, suicidal ideation Skin exam: PRESENT: dry, erythema, intact, warm, other - BLE erythema is significantly improved; now light pink in color, most notably to anterior surfaces. +1 edema bilaterally. Anterior 'L' shapped skin tear to RLE; no drainage present. ABSENT: cyanosis, rash Results Laboratory Results: 02/20/18 06:12 02/20/18 06:12 02/20/18 02/20/18 06:12 06:12 WBC 5.4 RBC 2.64 L Hgb 8.5 L Hct 26.0 L MCV 98 H MCH 32.2 MCHC 32.7 RDW 19.1 H Plt Count 133 L Sodium 138.8 Potassium 5.3 H Chloride 103 Carbon Dioxide 21 L Anion Gap 15 BUN 113 H Creatinine 9.65 H Est GFR ( Amer) 6 L Est GFR (Non-Af Amer) 5 L Glucose 108 Calcium 7.7 L 02/16/18 02/17/18 02/17/18 18:57 01:02 01:02 Creatine Kinase 138 CK-MB (CK-2) 14.70 H Troponin I 0.253 0.247 02/17/18 02/17/18 02/17/18 07:15 07:15 13:28 Creatine Kinase 123 133 CK-MB (CK-2) 13.30 H Troponin I 0.244 02/17/18 02/18/18 13:28 09:15 Creatine Kinase CK-MB (CK-2) 14.80 H Troponin I 0.226 0.179 Impressions: Abdomen X-Ray 02/16/18 20:48 IMPRESSION: Borderline dilated loops of small bowel may be due to ileus. Moderate amount of stool is also noted in the right colon and may be due to constipation. Assessment & Plan - Diagnosis (1) Anemia Qualifiers: Anemia type: unspecified type Qualified Code(s): D64.9 - Anemia, unsp ecified Is this a current diagnosis for this admission?: Yes Plan: Stable. Anemia of chronic disease; possibly worsened by fluid volume overload as indicated by Dr. Eric, enterprise manager. Now status post 2 units packed red blood cells; Hgb 6.1--> 8.5--> 9.3--> 8.0--> 8.5 No evidence of active bleeding. We will defer erythropoietin or iron infusions to nephrology's expertise. Registered dietitian is consulted. We will monitor CBCs and transfuse as necessary. (2) Bilateral lower leg cellulitis Is this a current diagnosis for this admission?: Yes Plan: Significant improvement; erythema nearly resolved, edema reduced, patient remains afebrile w/ nml WBC. The patient does endorse frequent episodes of cellulitis to his lower extremities; likely component of peripheral vascular disease. Blood cultures are negative at 72 hours. The patient has been empirically placed on IP Fortaz and vancomycin; dosing per nephrology. Anticipate transition to p.o. antibiotics within 1-2 days. Continue to elevate extremities. (3) Dependence on peritoneal dialysis Is this a current diagnosis for this admission?: Yes Plan: Nephrology is consulted; dialysis per their expertise. (4) Constipation Qualifiers: Constipation type: unspecified constipation type Qualified Code(s): K59.00 - Constipation, unspecified Is this a current diagnosis for this admission?: Yes Plan: Resolved. Lactulose and Colace daily. (5) Coronary artery disease Qualifiers: Coronary Disease-Associated Artery/Lesion type: [place] artery [place] vs. transplanted heart: [place] heart Associated angina: without angina Qualified Code(s): I25.10 - Atherosclerotic heart disease of [place] coronary artery without angina pectoris Is this a current diagnosis for this admission?: Yes Plan: Without current chest pain. EKG demonstrated sinus tachycardia with left bundle branch block (chronic) Troponins were elevated to 0.253 on admission; have trended down x4 to 0.179 Discussed with cardiology, Dr. Mcadams; no indications that the patient is experiencing acute coronary syndrome. Will monitor on continuous cardiac telemetry. Continue daily ASA and statin therapy. Encourage compliance with metoprolol for rate control. (6) Elevated troponin Is this a current diagnosis for this admission?: Yes Plan: Likely multifactorial secondary to severe anemia, underlying CHF and ESRD. Trending down x5. Discussed with cardiology; management as above. - Time Time Spent with patient: 15-24 minutes Medications reviewed and adjusted accordingly: Yes Anticipated discharge: Home Within: within 48 hours
[2018-02-20] MEDS: HEPARIN SOD (PORCINE) 5,000 UNIT/ML 1 ML SYRINGE SUBCUT PRN (17:43)
[2018-02-20 18:12] LABS: VANCOMYCIN,TROUGH 11.9 ug/mL (5.0-20.0)
[2018-02-20] MEDS: ATORVASTATIN CALCIUM 10 MG TABLET PO SCH (22:13)
[2018-02-21] MEDS: LEVOTHYROXINE SODIUM 0.112 MG TABLET PO SCH (05:42)
[2018-02-21] MEDS: LANSOPRAZOLE 30 MG TAB.RAP.DR PO SCH (05:43)
[2018-02-21] MEDS: HEPARIN SOD (PORCINE) 5,000 UNIT/ML 1 ML SYRINGE SUBCUT SCH ×3 (05:44→21:47)
[2018-02-21] MEDS: GENTAMICIN SULFATE 0.1% CREAM 15 GM TP PRN (06:56)
[2018-02-21 07:19] LABS: HEMATOCRIT 27.4 % (37.9-51.0); HEMOGLOBIN 9.1 g/dL (13.5-17.0); MEAN CORPUSCULAR HEMOGLOBIN 32.4 pg (27.0-33.4); MEAN CORPUSCULAR HGB CONC 33.1 g/dL (32.0-36.0); MEAN CORPUSCULAR VOLUME 98 fl (80-97); PLATELET COUNT 147 10^3/uL (150-450); WHITE BLOOD COUNT 6.1 10^3/uL (4.0-10.5)
[2018-02-21 07:38] LABS: ANION GAP 15 (5-19); BLOOD UREA NITROGEN 113 mg/dL (7-20); CARBON DIOXIDE 23 mmol/L (22-30); CHLORIDE 102 mmol/L (98-107); GLUCOSE 143 mg/dL (75-110); POTASSIUM 5.1 mmol/L (3.6-5.0); SODIUM 139.6 mmol/L (137-145)
[2018-02-21] MEDS: CALCIUM ACETATE 667 MG CAPSULE PO SCH ×3 (09:05→16:37)
[2018-02-21] MEDS: FERROUS SULFATE 325 MG TABLET PO SCH ×3 (09:05→17:40)
[2018-02-21] MEDS: MIDODRINE HCL 5 MG TABLET PO SCH ×4 (09:06→19:09)
[2018-02-21] MEDS: MULTIVIT-STRESS FORMULA/ZINC TABLET PO SCH (09:06)
[2018-02-21] MEDS: MEGESTROL ACETATE SUSP 400 MG/10 ML UDCUP PO SCH (09:06)
[2018-02-21] MEDS: TIOTROPIUM BROMIDE DPI 5 CAP/KIT (18 MCG/CAP) IH SCH ×2 (09:06→23:03)
[2018-02-21] MEDS: CHOLECALCIFEROL (D3) 1,000 UNIT TABLET PO SCH (09:06)
[2018-02-21] MEDS: ASPIRIN 81 MG TABLET, CHEWABLE PO SCH (09:06)
[2018-02-21] MEDS: METOPROLOL SUCCINATE 25 MG TAB.SR.24H PO SCH (09:06)
[2018-02-21] MEDS: FOLIC ACID 1 MG TABLET PO SCH (09:06)
[2018-02-21] MEDS: LACTULOSE SYRUP 20 GM/30 ML UDCUP PO SCH (09:07)
[2018-02-21] MEDS: INSULIN LISPRO 100 UNIT/ML 3 ML VIAL SUBCUT PRN ×2 (14:05→16:37)
[2018-02-21] MEDS: CEFTAZIDIME INJ 1 GM VIAL INJ SCH (15:03)
--- NOTE | 2018-02-21 17:12 | PDOC PROGRESS REPORT ---
Addendum entered and electronically signed by TELMA ARNDT PA-C 02/21/18 18:05: Provider Note Provider Note: start cardizem 30mg po q8h for paroxysmal AFIB + run of VTACH. Hold parameters placed. Original Note: Subjective Progress Note for:: 02/21/18 Subjective:: The patient is a 79-year-old male with a past medical history of end-stage renal failure (no longer making urine) on peritoneal dialysis, fibrillation, coronary artery disease, hypertension, arthritis, chronic anemia, and recurrent cellulitis of the legs who was admitted 02/16/18 for anemia and bilateral lower leg cellulitis. At the time of my evaluation he was sitting comfortably on the side of the bed. He is inquires about going home. He understands that nephrology will need to see him and approve of his d/c. He reports BLLE cellulitis has much improved. It continues to be red, swollen, and cause some mild pain. It's not very warm to the touch. He denies F/C. His HR was felt to be in the upper 90s (NSR) in his radial pulse. RN called around 1230 to report 9 run of v-tach. Patient was asymptomatic and VSS. Mag was found to be normal. He is being compliant with metoprolol today. We discussed monitoring and seeking nephro recommendations to lower K+. He is pleasant during my evaluation and on RA. He reports being aware of when goes into AFib, but it does not usually necessitate him going to the hospital. 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: SYMPTOMATIC ANEMIA, BLLE CELLULITIS, CKD Physical Exam Vital Signs: Temp Pulse Resp BP Pulse Ox 97.7 F 127 H 24 H 123/78 92 02/21/18 16:00 02/21/18 16:00 02/21/18 16:00 02/21/18 16:00 02/21/18 16:00 Intake & Output 02/20/18 02/21/18 02/22/18 06:59 06:59 06:59 Intake Total 6000 6954 1737 Output Total 8680 6950 1600 Balance -100 4 137 Weight 67.8 kg 67.1 kg 65.6 kg General appearance: PRESENT: no acute distress Head exam: PRESENT: atraumatic Ear exam: PRESENT: normal external ear exam Mouth exam: PRESENT: moist, tongue midline Respiratory exam: PRESENT: other - good air flow. no wheeze or rhonchi Cardiovascular exam: PRESENT: RRR, +S1, +S2 Pulses: PRESENT: normal radial pulses GI/Abdominal exam: PRESENT: soft - non-tender, non-distended Rectal exam: PRESENT: deferred Extremities exam: PRESENT: full ROM, +2 edema, other - erythema, RLE-bandaged. Right hand-superfial wound. non-infectious appearing Neurological exam: PRESENT: alert, awake, oriented to person, oriented to place, oriented to time, oriented to situation, CN II-XII grossly intact. ABSENT: motor sensory deficit Psychiatric exam: PRESENT: normal mood Results Laboratory Results: 02/21/18 07:09 02/21/18 07:09 02/21/18 02/21/18 02/21/18 07:09 07:09 07:09 WBC 6.1 RBC 2.80 L Hgb 9.1 L Hct 27.4 L MCV 98 H MCH 32.4 MCHC 33.1 RDW 19.0 H Plt Count 147 L Sodium 139.6 Potassium 5.1 H Chloride 102 Carbon Dioxide 23 Anion Gap 15 BUN 113 H Creatinine 10.30 H Est GFR ( Amer) 6 L Est GFR (Non-Af Amer) 5 L Glucose 143 H Calcium 8.0 L Magnesium 2.0 02/17/18 12:00 Peritoneal Dialysis Gram Stain - Final 02/17/18 12:00 Peritoneal Dialysis Body Fluid Culture - Final NO AEROBIC OR ANAEROBIC ORGANISMS RECOVERED 02/16/18 02/17/18 02/17/18 18:57 01:02 01:02 Creatine Kinase 138 CK-MB (CK-2) 14.70 H Troponin I 0.253 0.247 02/17/18 02/17/18 02/17/18 07:15 07:15 13:28 Creatine Kinase 123 133 CK-MB (CK-2) 13.30 H Troponin I 0.244 02/17/18 02/18/18 13:28 09:15 Creatine Kinase CK-MB (CK-2) 14.80 H Troponin I 0.226 0.179 Impressions: Abdomen X-Ray 02/16/18 20:48 IMPRESSION: Borderline dilated loops of small bowel may be due to ileus. Moderate amount of stool is also noted in the right colon and may be due to constipation. Assessment & Plan - Diagnosis (1) Bilateral lower leg cellulitis Is this a current diagnosis for this admission?: Yes (2) Dependence on peritoneal dialysis Is this a current diagnosis for this admission?: Yes (3) CHF (congestive heart failure) Qualifiers: Qualified Code(s): I50.41 - Acute combined systolic (congestive) and diastolic (congestive) heart failure Is this a current diagnosis for this admission?: Yes (4) ESRD (end stage renal disease) Is this a current diagnosis for this admission?: Yes (5) Hyperkalemia Is this a current diagnosis for this admission?: Yes (6) Left bundle branch block (LBBB) Is this a current diagnosis for this admission?: Yes (7) Venous insufficiency of both lower extremities Is this a current diagnosis for this admission?: Yes - Time Time Spent with patient: 25-34 minutes Medications reviewed and adjusted accordingly: Yes Anticipated discharge: Home Within: within 72 hours - Inpatient Certification Based on my medical assessment, after consideration of the patient's comorbidities, presenting symptoms, or acuity I expect that the services needed warrant INPATIENT care.: Yes I certify that my determination is in accordance with my understanding of Medicare's requirements for reasonable and necessary INPATIENT services [42 CFR 412.3e].: Yes - Plan Summary Plan Summary: (1) Anemia Qualifiers: Anemia type: unspecified type Qualified Code(s): D64.9 - Anemia, unspecified Is this a current diagnosis for this admission?: Yes Plan: -Stable. No evidence of active bleeding. Likely anemia of chronic disease -s/p 2 units of PRBC Hgb 6.1--> 8.5--> 9.3--> 8.0--> 8.5 -EPO would be Nephro's decision -monitoring (2) Bilateral lower leg cellulitis Is this a current diagnosis for this admission?: Yes Plan: -Significant improvement; erythema nearly resolved, edema reduced, patient remains afebrile w/ nml WBC. -The patient does endorse frequent episodes of cellulitis to his lower extremities; likely component of peripheral vascular disease. -Blood cultures are negative at 72 hours. -continue Fortaz and vancomycin; dosing per nephrology. -Anticipate transition to p.o. antibiotics within 1-2 days. -Continue to elevate extremities. (3) Dependence on peritoneal dialysis Is this a current diagnosis for this admission?: Yes Plan: per Nephrology (4) Constipation Qualifiers: Constipation type: unspecified constipation type Qualified Code(s): K59.00 - Constipation, unspecified Is this a current diagnosis for this admission?: Yes Plan: Resolved with Lactulose and Colace daily. (5) Coronary artery disease Qualifiers: Coronary Disease-Associated Artery/Lesion type: [place] artery [place] vs. transplanted heart: [place] heart Associated angina: without angina Qualified Code(s): I25.10 - Atherosclerotic heart disease of [place] coronary artery without angina pectoris Is this a current diagnosis for this admission?: Yes Plan: -Without chest pain. Monitor on Telemetry -EKG demonstrated sinus tachycardia with left bundle branch block (chronic) -Troponins were elevated to 0.253 on admission; have trended down x4 to 0.179 -Discussed with cardiology, no indications that the patient is experiencing acute coronary syndrome. -Continue daily ASA and statin therapy. -Encourage compliance with metoprolol for rate control. (6) Elevated troponin Is this a current diagnosis for this admission?: Yes Plan: -Likely multifactorial secondary to severe anemia, underlying CHF and ESRD. -Trended down x5. -Discussed with cardiology; management as above. (7) VTach -asymptomatic 9 beat run 02/21. Normal Mag. K+ 5.2. -consider consulting Cardiology for medication recommendations Disposition: Originally thought for possible d/c today. Will monitor for Nephro recommendations and consider cardiology consult.
--- NOTE | 2018-02-21 17:31 | PDOC PROGRESS REPORT ---
Subjective Progress Note for:: 02/21/18 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: Patient seen today in the hospital. Discussions were done with him as well as the treating nurse Nini. His blood pressure is more stable and therefore we are able to use more hypotonic solutions and extract more drain. His leg swelling and redness seems to be improving. Patient denies any history of chest pain shortness of breath. No history of any fever or chills. Labs and medications were reviewed with him and the treating nurse. Physical Exam Vital Signs: Temp Pulse Resp BP Pulse Ox 97.7 F 127 H 24 H 123/78 92 02/21/18 16:00 02/21/18 16:00 02/21/18 16:00 02/21/18 16:00 02/21/18 16:00 Intake & Output 02/20/18 02/21/18 02/22/18 06:59 06:59 06:59 Intake Total 6000 6954 1737 Output Total 6100 6950 1600 Balance -100 4 137 Weight 67.8 kg 67.1 kg 65.6 kg General appearance: PRESENT: no acute distress Respiratory exam: PRESENT: clear to auscultation tata, decreased breath sounds. ABSENT: crackles Cardiovascular exam: PRESENT: +S1, +S2, systolic murmur GI/Abdominal exam: PRESENT: normal bowel sounds, soft. ABSENT: organomegaly, tenderness Extremities exam: PRESENT: +1 edema Neurological exam: PRESENT: alert, awake, oriented to person, oriented to place Psychiatric exam: PRESENT: appropriate affect Skin exam: PRESENT: erythema - Of both lower extremities suggestive of early cellulitis which seems to be responding to the vancomycin and ceftazidime.Cultures negative so far. Results Laboratory Results: 02/21/18 07:09 02/21/18 07:09 02/21/18 02/21/18 02/21/18 07:09 07:09 07:09 WBC 6.1 RBC 2.80 L Hgb 9.1 L Hct 27.4 L MCV 98 H MCH 32.4 MCHC 33.1 RDW 19.0 H Plt Count 147 L Sodium 139.6 Potassium 5.1 H Chloride 102 Carbon Dioxide 23 Anion Gap 15 BUN 113 H Creatinine 10.30 H Est GFR ( Amer) 6 L Est GFR (Non-Af Amer) 5 L Glucose 143 H Calcium 8.0 L Magnesium 2.0 02/17/18 12:00 Peritoneal Dialysis Gram Stain - Final 02/17/18 12:00 Peritoneal Dialysis Body Fluid Culture - Final NO AEROBIC OR ANAEROBIC ORGANISMS RECOVERED 02/16/18 02/17/18 02/17/18 18:57 01:02 01:02 Creatine Kinase 138 CK-MB (CK-2) 14.70 H Troponin I 0.253 0.247 02/17/18 02/17/18 02/17/18 07:15 07:15 13:28 Creatine Kinase 123 133 CK-MB (CK-2) 13.30 H Troponin I 0.244 02/17/18 02/18/18 13:28 09:15 Creatine Kinase CK-MB (CK-2) 14.80 H Troponin I 0.226 0.179 Impressions: Abdomen X-Ray 02/16/18 20:48 IMPRESSION: Borderline dilated loops of small bowel may be due to ileus. Moderate amount of stool is also noted in the right colon and may be due to constipation. Assessment & Plan - Diagnosis (1) Anemia Qualifiers: Anemia type: unspecified type Qualified Code(s): D64.9 - Anemia, unspecified Is this a current diagnosis for this admission?: Yes Plan: Stable post transfusion and on erythropoietin. (2) Bilateral lower leg cellulitis Is this a current diagnosis for this admission?: Yes Plan: On vancomycin and ceftazidime. Currently showing improvement. Continue present lines of management. (3) Dependence on peritoneal dialysis Is this a current diagnosis for this admission?: Yes Plan: More compliant with her PD regimen now. Discussed with the treating nurse to instill 4.25% bags now and see how much he can extract as he does not seem to have much extraction with the earlier installation of the 2.5%.Once his edema is a whole lot improved that he can be discharged home (4) CHF (congestive heart failure) Qualifiers: Qualified Code(s): I50.41 - Acute combined systolic (congestive) and diastolic (congestive) heart failure Is this a current diagnosis for this admission?: Yes Plan: Improving. Aim for more ultrafiltration.See the response to change in his PD regimen. (5) Constipation Qualifiers: Constipation type: unspecified constipation type Qualified Code(s): K59.00 - Constipation, unspecified Is this a current diagnosis for this admission?: Yes Plan: Improved after his enema and lactulose. (6) ESRD (end stage renal disease) Is this a current diagnosis for this admission?: Yes Plan: Patient now better compliant with his PD regimen. See the response to change in his PD regimen. (7) Hypotension Plan: More stable. Titrate Midodrin.
[2018-02-21] MEDS: DILTIAZEM HCL 30 MG TABLET PO SCH (21:46)
[2018-02-21] MEDS: ATORVASTATIN CALCIUM 10 MG TABLET PO SCH (21:47)
[2018-02-21] MEDS: HEPARIN SOD (PORCINE) 5,000 UNIT/ML 1 ML SYRINGE SUBCUT PRN (21:49)
[2018-02-21] MEDS: TRAZODONE HCL 50 MG TABLET PO PRN (21:52)
[2018-02-21] MEDS: CLONAZEPAM 1 MG TABLET PO PRN (21:52)
[2018-02-22] MEDS: GENTAMICIN SULFATE 0.1% CREAM 15 GM TP PRN (04:53)
[2018-02-22] MEDS: HEPARIN SOD (PORCINE) 5,000 UNIT/ML 1 ML SYRINGE SUBCUT SCH ×3 (05:06→21:06)
[2018-02-22] MEDS: DILTIAZEM HCL 30 MG TABLET PO SCH ×3 (05:08→21:07)
[2018-02-22] MEDS: LEVOTHYROXINE SODIUM 0.112 MG TABLET PO SCH (05:08)
[2018-02-22] MEDS: LANSOPRAZOLE 30 MG TAB.RAP.DR PO SCH (05:08)
[2018-02-22 05:59] LABS: HEMATOCRIT 24.9 % (37.9-51.0); HEMOGLOBIN 8.1 g/dL (13.5-17.0); MEAN CORPUSCULAR HEMOGLOBIN 31.7 pg (27.0-33.4); MEAN CORPUSCULAR HGB CONC 32.5 g/dL (32.0-36.0); MEAN CORPUSCULAR VOLUME 98 fl (80-97); PLATELET COUNT 136 10^3/uL (150-450); RED BLOOD COUNT 2.55 10^6/uL (4.35-5.55); RED CELL DISTRIBUTION WIDTH 19.6 % (11.5-14.0); WHITE BLOOD COUNT 5.8 10^3/uL (4.0-10.5)
[2018-02-22 06:33] LABS: VANCOMYCIN,TROUGH 13.2 ug/mL (5.0-20.0)
[2018-02-22 06:34] LABS: ANION GAP 16 (5-19); BLOOD UREA NITROGEN 112 mg/dL (7-20); CARBON DIOXIDE 22 mmol/L (22-30); CHLORIDE 101 mmol/L (98-107); GLUCOSE 257 mg/dL (75-110); PHOSPHORUS 6.9 mg/dL (2.5-4.5); SODIUM 138.6 mmol/L (137-145)
[2018-02-22] MEDS: CALCIUM ACETATE 667 MG CAPSULE PO SCH ×3 (08:14→18:31)
[2018-02-22] MEDS: INSULIN LISPRO 100 UNIT/ML 3 ML VIAL SUBCUT PRN ×3 (08:14→18:32)
[2018-02-22] MEDS: MEGESTROL ACETATE SUSP 400 MG/10 ML UDCUP PO SCH (09:40)
[2018-02-22] MEDS: MIDODRINE HCL 5 MG TABLET PO SCH ×3 (09:40→18:31)
[2018-02-22] MEDS: ASPIRIN 81 MG TABLET, CHEWABLE PO SCH (09:40)
[2018-02-22] MEDS: MULTIVIT-STRESS FORMULA/ZINC TABLET PO SCH (09:40)
[2018-02-22] MEDS: METOPROLOL SUCCINATE 25 MG TAB.SR.24H PO SCH (09:40)
[2018-02-22] MEDS: FOLIC ACID 1 MG TABLET PO SCH (09:40)
[2018-02-22] MEDS: FERROUS SULFATE 325 MG TABLET PO SCH ×3 (09:40→18:31)
[2018-02-22] MEDS: CHOLECALCIFEROL (D3) 1,000 UNIT TABLET PO SCH (09:40)
[2018-02-22] MEDS: LACTULOSE SYRUP 20 GM/30 ML UDCUP PO SCH (09:45)
[2018-02-22] MEDS: TIOTROPIUM BROMIDE DPI 5 CAP/KIT (18 MCG/CAP) IH SCH ×2 (09:56→21:07)
[2018-02-22] MEDS: CEFTAZIDIME INJ 1 GM VIAL INJ SCH (10:38)
[2018-02-22] MEDS ORDERED: VANCOMYCIN HCL INJ 1000 MG VIAL IPER SCH (11:00)
[2018-02-22] MEDS ORDERED: EPOETIN ALFA INJ 20000 UNIT/1 ML VIAL (RENAL) SUBCUT ONE (11:30)
--- NOTE | 2018-02-22 12:20 | PDOC PROGRESS REPORT ---
Subjective Progress Note for:: 02/22/18 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: Patient seen today. He is continuing to improve though slowly. Still got a lot of edema but cellulitis improving. He denies any history of chest pain, shortness of breath, fever or chills. Labs and medications were reviewed with him in this treating nurse Nini. Physical Exam Vital Signs: Temp Pulse Resp BP Pulse Ox 98.2 F 84 20 114/70 96 02/22/18 12:08 02/22/18 12:08 02/22/18 12:08 02/22/18 12:08 02/22/18 12:08 Intake & Output 02/21/18 02/22/18 02/23/18 06:59 06:59 06:59 Intake Total 6954 4977 1500 Output Total 6950 5500 1600 Balance 4 -523 -100 Weight 67.1 kg 67.1 kg 66.4 kg General appearance: PRESENT: no acute distress Respiratory exam: PRESENT: clear to auscultation tata, decreased breath sounds. ABSENT: crackles Cardiovascular exam: PRESENT: +S1, +S2, systolic murmur GI/Abdominal exam: PRESENT: normal bowel sounds, soft. ABSENT: organomegaly, tenderness Extremities exam: PRESENT: +1 edema Neurological exam: PRESENT: alert, awake, oriented to person, oriented to place Skin exam: PRESENT: erythema - Markedly improved compared to his admission.. ABSENT: cyanosis, mottled Results Laboratory Results: 02/22/18 05:43 02/22/18 05:43 02/21/18 02/22/18 02/22/18 07:09 05:43 05:43 WBC 5.8 RBC 2.55 L Hgb 8.1 L Hct 24.9 L MCV 98 H MCH 31.7 MCHC 32.5 RDW 19.6 H Plt Count 136 L Sodium 138.6 Potassium 5.0 Chloride 101 Carbon Dioxide 22 Anion Gap 16 BUN 112 H Creatinine 10.56 H Est GFR ( Amer) 6 L Est GFR (Non-Af Amer) 5 L Glucose 257 H Calcium 8.0 L Phosphorus 6.9 H Magnesium 2.0 2.1 02/16/18 18:57 Blood Blood Culture - Final NO GROWTH IN 5 DAYS 02/16/18 18:35 Blood Blood Culture - Final NO GROWTH IN 5 DAYS 02/17/18 12:00 Peritoneal Dialysis Gram Stain - Final 02/17/18 12:00 Peritoneal Dialysis Body Fluid Culture - Final NO AEROBIC OR ANAEROBIC ORGANISMS RECOVERED 02/16/18 02/17/18 02/17/18 18:57 01:02 01:02 Creatine Kinase 138 CK-MB (CK-2) 14.70 H Troponin I 0.253 0.247 02/17/18 02/17/18 02/17/18 07:15 07:15 13:28 Creatine Kinase 123 133 CK-MB (CK-2) 13.30 H Troponin I 0.244 02/17/18 02/18/18 13:28 09:15 Creatine Kinase CK-MB (CK-2) 14.80 H Troponin I 0.226 0.179 Impressions: Abdomen X-Ray 02/16/18 20:48 IMPRESSION: Borderline dilated loops of small bowel may be due to ileus. Moderate amount of stool is also noted in the right colon and may be due to constipation. Assessment & Plan - Diagnosis (1) Anemia Qualifiers: Anemia type: unspecified type Qualified Code(s): D64.9 - Anemia, unspecified Is this a current diagnosis for this admission?: Yes Plan: Stable post transfusion and on erythropoietin. (2) Bilateral lower leg cellulitis Is this a current diagnosis for this admission?: Yes Plan: On vancomycin and ceftazidime. Currently showing improvement. Continue present lines of management.Vancomycin ordered for today. (3) Dependence on peritoneal dialysis Is this a current diagnosis for this admission?: Yes Plan: More compliant with her PD regimen now. Good response to the 4.25% solutions. Discussed with the treating nurse to instill 4.25% bags now and see how much he can extract as he does not seem to have much extraction with the earlier installation of the 2.5%.Once his edema is a whole lot improved that he can be discharged home (4) CHF (congestive heart failure) Qualifiers: Qualified Code(s): I50.41 - Acute combined systolic (congestive) and diastolic (congestive) heart failure Is this a current diagnosis for this admission?: Yes Plan: Improving. Aim for more ultrafiltration.See the response to change in his PD regimen. (5) Constipation Qualifiers: Constipation type: unspecified constipation type Qualified Code(s): K59.00 - Constipation, unspecified Is this a current diagnosis for this admission?: Yes Plan: Improved after his enema and lactulose. (6) ESRD (end stage renal disease) Is this a current diagnosis for this admission?: Yes Plan: Patient now better compliant with his PD regimen. See the response to change in his PD regimen. (7) Hypotension Plan: More stable. Titrate Midodrin.
--- NOTE | 2018-02-22 16:01 | PDOC PROGRESS REPORT ---
Subjective Progress Note for:: 02/22/18 Subjective:: The patient is a 79-year-old male with a past medical history of end-stage renal failure (no longer making urine) on peritoneal dialysis, fibrillation, coronary artery disease, hypertension, arthritis, chronic anemia, and recurrent cellulitis of the legs who was admitted 02/16/18 for anemia and bilateral lower leg cellulitis. PAtient is seen post PD. He is much more tired today, and reports that dialysis normally "wipes" him out. Case discussed with edm operator. Nephro feels he may be candidate for d/c tomm. He reports being able to take off more fluid than ex pected and this is visible in his BLLE. Continues to have bandages on LUE and RLE due "wheeping" wounds. He denies F/C or acute symptoms. No issues with AFIB or VTACH reported. Continues to be on tele. NSR @ time of my eval. BLLE are less red, less swollen, and no reports of pain 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: SYMPTOMATIC ANEMIA, CELLULITIS, CKD Physical Exam Vital Signs: Temp Pulse Resp BP Pulse Ox 98.2 F 111 H 20 114/70 96 02/22/18 12:08 02/22/18 14:00 02/22/18 12:08 02/22/18 12:08 02/22/18 12:08 Intake & Output 02/21/18 02/22/18 02/23/18 06:59 06:59 06:59 Intake Total 6954 4977 1845 Output Total 6950 5500 1600 Balance 4 -523 245 Weight 67.1 kg 67.1 kg 66.4 kg General appearance: PRESENT: no acute distress, well-developed, well-nourished Head exam: PRESENT: atraumatic, normocephalic Eye exam: PRESENT: conjunctiva pink, EOMI, PERRLA. ABSENT: scleral icterus Ear exam: PRESENT: normal external ear exam Mouth exam: PRESENT: moist, neck supple, tongue midline Respiratory exam: PRESENT: unlabored, other - good air flow Cardiovascular exam: PRESENT: RRR, +S1, +S2 Pulses: PRESENT: normal carotid pulses, normal radial pulses GI/Abdominal exam: PRESENT: normal bowel sounds, soft. ABSENT: distended, guarding, mass, organolmegaly, rebound, tenderness Rectal exam: PRESENT: deferred Extremities exam: PRESENT: +1 edema - BLLE. mild erythema. Multiple poor healing wounds on extremetities. None of which appear acutey infectious. Neurological exam: PRESENT: alert, awake, oriented to person, oriented to place, oriented to time, oriented to situation, CN II-XII grossly intact. ABSENT: motor sensory deficit Psychiatric exam: PRESENT: other - sleepy Results Laboratory Results: 02/22/18 05:43 02/22/18 05:43 02/22/18 02/22/18 05:43 05:43 WBC 5.8 RBC 2.55 L Hgb 8.1 L Hct 24.9 L MCV 98 H MCH 31.7 MCHC 32.5 RDW 19.6 H Plt Count 136 L Sodium 138.6 Potassium 5.0 Chloride 101 Carbon Dioxide 22 Anion Gap 16 BUN 112 H Creatinine 10.56 H Est GFR ( Amer) 6 L Est GFR (Non-Af Amer) 5 L Glucose 257 H Calcium 8.0 L Phosphorus 6.9 H Magnesium 2.1 02/16/18 18:57 Blood Blood Culture - Final NO GROWTH IN 5 DAYS 02/16/18 18:35 Blood Blood Culture - Final NO GROWTH IN 5 DAYS 02/16/18 02/17/18 02/17/18 18:57 01:02 01:02 Creatine Kinase 138 CK-MB (CK-2) 14.70 H Troponin I 0.253 0.247 02/17/18 02/17/18 02/17/18 07:15 07:15 13:28 Creatine Kinase 123 133 CK-MB (CK-2) 13.30 H Troponin I 0.244 02/17/18 02/18/18 13:28 09:15 Creatine Kinase CK-MB (CK-2) 14.80 H Troponin I 0.226 0.179 Impressions: Abdomen X-Ray 02/16/18 20:48 IMPRESSION: Borderline dilated loops of small bowel may be due to ileus. Moderate amount of stool is also noted in the right colon and may be due to constipation. Assessment & Plan - Diagnosis (1) Bilateral lower leg cellulitis Is this a current diagnosis for this admission?: Yes (2) Dependence on peritoneal dialysis Is this a current diagnosis for this admission?: Yes (3) CHF (congestive heart failure) Qualifiers: Qualified Code(s): I50.41 - Acute combined systolic (congestive) and diastolic (congestive) heart failure Is this a current diagnosis for this admission?: Yes (4) ESRD (end stage renal disease) Is this a current diagnosis for this admission?: Yes (5) Hyperkalemia Is this a current diagnosis for this admission?: Yes (6) Left bundle branch block (LBBB) Is this a current diagnosis for this admission?: Yes (7) Venous insufficiency of both lower extremities Is this a current diagnosis for this admission?: Yes - Time Time Spent with patient: 25-34 minutes Medications reviewed and adjusted accordingly: Yes - Inpatient Certification Based on my medical assessment, after consideration of the patient's comorbidi ties, presenting symptoms, or acuity I expect that the services needed warrant INPATIENT care.: Yes I certify that my determination is in accordance with my understanding of [facility]'s requirements for reasonable and necessary INPATIENT services [42 CFR 412.3e].: Yes - Plan Summary Plan Summary: (1) Anemia Qualifiers: Anemia type: unspecified type Qualified Code(s): D64.9 - Anemia, unspeci fied Is this a current diagnosis for this admission?: Yes Plan: -Stable. No evidence of active bleeding. Likely anemia of chronic disease -s/p 2 units of PRBC Hgb 6.1--> 8.5--> 9.3--> 8.0--> 8.5 -EPO would be Nephro's decision -monitoring (2) Bilateral lower leg cellulitis Is this a current diagnosis for this admission?: Yes Plan: -Significant improvement; erythema nearly resolved, edema reduced, patient remains afebrile w/ nml WBC. -The patient does endorse frequent episodes of cellulitis to his lower extremities; likely component of peripheral vascular disease. -Blood cultures have been negative -continue Fortaz and vancomycin; dosing per nephrology. -Anticipate transition to p.o. antibiotics on d/c unless nephro instructs otherwise -Continue to elevate extremities. (3) Dependence on peritoneal dialysis Is this a current diagnosis for this admission?: Yes Plan: per Nephrology (4) Constipation Qualifiers: Constipation type: unspecified constipation type Qualified Code(s): K59.00 - Constipation, unspecified Is this a current diagnosis for this admission?: Yes Plan: Resolved with Lactulose and Colace daily. (5) Coronary artery disease Qualifiers: Coronary Disease-Associated Artery/Lesion type: [place] artery [place] vs. transplanted heart: [place] heart Associated angina: without angina Qualified Code(s): I25.10 - Atherosclerotic heart disease of [place] coronary artery without angina pectoris Is this a current diagnosis for this admission?: Yes Plan: -Without chest pain. Monitor on Telemetry -EKG demonstrated sinus tachycardia with left bundle branch block (chronic) -Troponins were elevated to 0.253 on admission; they trended down x4 to 0.179 -Discussed with cardiology, no indications that the patient is experiencing acute coronary syndrome. -Continue daily ASA and statin therapy. (6) Elevated troponin Is this a current diagnosis for this admission?: Yes Plan: -Likely multifactorial secondary to severe anemia, underlying CHF and ESRD. -Trended down x5. -Discussed with cardiology; management as above. (7) VTach -asymptomatic 9 beat run 02/21. Normal Mag. K+ 5.2. -consider consulting Cardiology for medication recommendations if recurrent episodes -continue metoprolol and cardizem Disposition: seems likely to be d/c 02/23
[2018-02-22] MEDS: ATORVASTATIN CALCIUM 10 MG TABLET PO SCH (21:07)
[2018-02-23] MEDS ORDERED: NORMAL SALINE 250 ML IV PRN (00:18)
[2018-02-23] MEDS ORDERED: NORMAL SALINE 200 ML IV PRN (00:26)
[2018-02-23] MEDS: HEPARIN SOD (PORCINE) 5,000 UNIT/ML 1 ML SYRINGE SUBCUT PRN (01:27)
[2018-02-23 06:41] LABS: ANION GAP 15 (5-19); BLOOD UREA NITROGEN 114 mg/dL (7-20); CALCIUM 8.4 mg/dL (8.4-10.2); CARBON DIOXIDE 22 mmol/L (22-30); CHLORIDE 100 mmol/L (98-107); GLUCOSE 115 mg/dL (75-110); POTASSIUM 5.6 mmol/L (3.6-5.0); SODIUM 136.9 mmol/L (137-145)
[2018-02-23] MEDS: GENTAMICIN SULFATE 0.1% CREAM 15 GM TP PRN (06:58)
[2018-02-23] MEDS: HEPARIN SOD (PORCINE) 5,000 UNIT/ML 1 ML SYRINGE SUBCUT SCH ×2 (06:59→14:30)
[2018-02-23] MEDS: LEVOTHYROXINE SODIUM 0.112 MG TABLET PO SCH (07:01)
[2018-02-23] MEDS: DILTIAZEM HCL 30 MG TABLET PO SCH ×2 (07:01→14:30)
[2018-02-23] MEDS: LANSOPRAZOLE 30 MG TAB.RAP.DR PO SCH (07:02)
[2018-02-23] MEDS: CALCIUM ACETATE 667 MG CAPSULE PO SCH ×2 (08:27→11:56)
[2018-02-23] MEDS: MIDODRINE HCL 5 MG TABLET PO SCH ×2 (10:39→14:29)
[2018-02-23] MEDS: FERROUS SULFATE 325 MG TABLET PO SCH ×2 (10:39→14:29)
[2018-02-23] MEDS: CHOLECALCIFEROL (D3) 1,000 UNIT TABLET PO SCH (10:39)
[2018-02-23] MEDS: METOPROLOL SUCCINATE 25 MG TAB.SR.24H PO SCH (10:39)
[2018-02-23] MEDS: MULTIVIT-STRESS FORMULA/ZINC TABLET PO SCH (10:39)
[2018-02-23] MEDS: ASPIRIN 81 MG TABLET, CHEWABLE PO SCH (10:39)
[2018-02-23] MEDS: FOLIC ACID 1 MG TABLET PO SCH (10:39)
[2018-02-23] MEDS: TIOTROPIUM BROMIDE DPI 5 CAP/KIT (18 MCG/CAP) IH SCH (10:42)
[2018-02-23] MEDS: MEGESTROL ACETATE SUSP 400 MG/10 ML UDCUP PO SCH (10:42)
[2018-02-23] MEDS: LACTULOSE SYRUP 20 GM/30 ML UDCUP PO SCH (10:42)
[2018-02-23] MEDS: CEFTAZIDIME INJ 1 GM VIAL INJ SCH (11:56)
--- NOTE | 2018-02-23 12:06 | PDOC PROGRESS REPORT ---
Subjective Progress Note for:: 02/23/18 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: Patient seen today. He is feeling a whole lot better. Is eating his breakfast. Denies any such chest pain shortness of breath. Pedal edema and cellulitis markedly improved. I discussed about the possibility of conversion from PD to hemodialysis given the fact that he has become so febrile and fragile. However he is very adamant that he would rather than go on hemodialysis.He says he has a son even though he is working will be able to help him with his PD including CAPD. He needs to be on CAPD because of his antibiotic regimen and the need to use different concentration of fluids given his edema. Patient willing to proceed accordingly. I therefore called his son Will Clark and discussed at length the need for 4 exchanges in a day with instillation of ceftazidime daily for 10 more days and vancomycin 1 g every third day for another 3 more doses. His son is willing to proceed and help his father.I then called Jaclyn at [facility] and she is going to get the fluids and antibiotics and will discuss with this patient and the son how to proceed. I have expressed strong concern about complications including peritonitis and failure of adequacy in this patient who has always been noncompliant and has cut corners. Physical Exam Vital Signs: Temp Pulse Resp BP Pulse Ox 97.9 F 94 18 123/83 99 02/23/18 08:05 02/23/18 08:05 02/23/18 08:05 02/23/18 08:05 02/23/18 08:05 Intake & Output 02/22/18 02/23/18 02/24/18 06:59 06:59 06:59 Intake Total 4977 5340 1500 Output Total 5500 5800 1800 Balance -523 -460 -300 Weight 67.1 kg 66.5 kg 66.8 kg General appearance: PRESENT: no acute distress Respiratory exam: PRESENT: clear to auscultation tata. ABSENT: crackles, decreased breath sounds Cardiovascular exam: PRESENT: +S1, +S2, systolic murmur GI/Abdominal exam: PRESENT: normal bowel sounds, soft. ABSENT: organomegaly, tenderness Extremities exam: PRESENT: pedal edema - Trace-1+Erythematous a whole lot better in both his extremities. He is nontender. Neurological exam: PRESENT: alert, awake, oriented to person, oriented to place, oriented to time Skin exam: PRESENT: erythema. ABSENT: cyanosis, mottled Results Laboratory Results: 02/22/18 05:43 02/23/18 06:04 02/23/18 06:04 Sodium 136.9 L Potassium 5.6 H Chloride 100 Carbon Dioxide 22 Anion Gap 15 BUN 114 H Creatinine 10.19 H Est GFR ( Amer) 6 L Est GFR (Non-Af Amer) 5 L Glucose 115 H Calcium 8.4 02/16/18 02/17/18 02/17/18 18:57 01:02 01:02 Creatine Kinase 138 CK-MB (CK-2) 14.70 H Troponin I 0.253 0.247 02/17/18 02/17/18 02/17/18 07:15 07:15 13:28 Creatine Kinase 123 133 CK-MB (CK-2) 13.30 H Troponin I 0.244 02/17/18 02/18/18 13:28 09:15 Creatine Kinase CK-MB (CK-2) 14.80 H Troponin I 0.226 0.179 Impressions: Abdomen X-Ray 02/16/18 20:48 IMPRESSION: Borderline dilated loops of small bowel may be due to ileus. Moderate amount of stool is also noted in the right colon and may be due to constipation. Assessment & Plan - Diagnosis (1) Anemia Qualifiers: Anemia type: unspecified type Qualified Code(s): D64.9 - Anemia, unspecified Is this a current diagnosis for this admission?: Yes Plan: Stable post transfusion and on erythropoietin.He would need to get erythropoietin on a weekly basis initially post discharge before he is stabilized. (2) Bilateral lower leg cellulitis Is this a current diagnosis for this admission?: Yes Plan: On vancomycin and ceftazidime. Currently showing improvement. He is ready for discharge from a renal point of view. I discussed with the patient about the need for needing for CAPD at 1.5 L x4 exchanges. He should use 1 g of cefazolin per daily and then 1 g of vancomycin every third day. I did also discuss this at length with the son Will Clark over the phone. Discussed the need for extreme care and to prevent infections.As mentioned earlier did express grave concerns about his need to put antibiotics and his CAPD successfully but patient is adamant. (3) Dependence on peritoneal dialysis Is this a current diagnosis for this admission?: Yes Plan: More compliant with her PD regimen now. He has done well to the CAPD regimen with adjustments of his fluids for appropriate fluid extraction. He is currently got just trace to 1+ edema in both extremities with a much markedly improved cellulitis. He is ready for discharge even though I have grave concerns about him going on PD. I discussed about conversion to hemodialysis but he has refused. I had extensive talks with his son and Iris the nurse at [facility].He will follow with me at [facility] next week. (4) CHF (congestive heart failure) Qualifiers: Qualified Code(s): I50.41 - Acute combined systolic (congestive) and diastolic (congestive) heart failure Is this a current diagnosis for this admission?: Yes Plan: Markedly improved.Right now he is ready for discharge on CAPD regimen.Advised titration of constipation of fluids based on his fluids. Advised not to cut c orners and that he should use 1.5 L exchanges and not 1 L exchanges for both adequacy and ultrafiltration. (5) Constipation Qualifiers: Constipation type: unspecified constipation type Qualified Code(s): K59.00 - Constipation, unspecified Is this a current diagnosis for this admission?: Yes Plan: Advised judicious use of laxatives at home (6) ESRD (end stage renal disease) Is this a current diagnosis for this admission?: Yes Plan: Patient has done well since she has been in the hospital obviously because he had no choice but to be compliant with his CAPD regimen. I explained to him that if he is noncompliant that he is going to get either infections of fluid overload with CHF or inadequacy and be back in the hospital. Advised him given his fragility to be better to do the hemodialysis but patient refused. (7) Hypotension Plan: Has done well with Midodrin. Discussed with the hospitalist to put him on 5 mg of Midodrin. (8) Tachycardia Plan: Patient has been begun on diltiazem because of intermittent A. fib. Continue on the same and monitor. - Time Critical Time spent with patient: Greater than 35 minutes - Of more than half the time was spent in in discussions with his son and with [facility] nurse Johnson as well as his treating nurse in the hospital. Medications reviewed and adjusted accordingly: Yes Anticipated discharge: Home Within: within 24 hours
[2018-02-23 14:23] VITALS: BP 91/60
--- NOTE | 2018-02-23 14:36 | PDOC DISCHARGE SUMMARY ---
General - Admit/Disc Date/PCP Admission Date/Primary Care Provider: 02/16/18 21:04 Basil ERIC MD Discharge Date: 02/23/18 - Discharge Diagnosis (1) Bilateral lower leg cellulitis Is this a current diagnosis for this admission?: Yes (2) Dependence on peritoneal dialysis Is this a current diagnosis for this admission?: Yes (3) CHF (congestive heart failure) Is this a current diagnosis for this admission?: Yes (4) ESRD (end stage renal disease) Is this a current diagnosis for this admission?: Yes (5) Hyperkalemia Is this a current diagnosis for this admission?: Yes (6) Left bundle branch block (LBBB) Is this a current diagnosis for this admission?: Yes (7) Venous insufficiency of both lower extremities Is this a current diagnosis for this admission?: Yes - Additional Information Resuscitation Status: Full Code Discharge Diet: Cardiac, Diabetic Discharge Activity: Activity As Tolerated Prescriptions: Ceftazidime Pentahydrate [Fortaz Inj 1 gm Vial] 1 gm INJ DAILY #10 vial Diltiazem HCl [Cardizem 30 mg Tablet] 30 mg PO Q8 #90 tablet Metoprolol Succinate [Toprol Xl 25 mg Tab.sr] 25 mg PO DAILY #30 tab.sr.24h Midodrine HCl [Proamatine 5 mg Tablet] 5 mg PO TID #90 tablet Trazodone HCl [Desyrel 50 mg Tablet] 50 mg PO HSP PRN #30 tablet PRN Reason: Vancomycin HCl [Vancocin Inj 1000 mg Vial] 1,000 mg IPER Q72H #3 vial Home Medications: Aspirin [Aspirin 81 mg Chewable Tablet] 81 mg PO DAILY 02/16/18 Atorvastatin Calcium [Lipitor 10 mg Tablet] 10 mg PO QHS 02/16/18 Calcium Acetate [Phoslo 667 mg Capsule] 667 mg PO MEALS 02/16/18 Cholecalciferol (Vitamin D3) [Vitamin D3 1000 Unit Tablet] 1,000 unit PO DAILY 02/16/18 Colchicine [Colcrys 0.6 mg Tablet] 0.6 mg PO DAILYP PRN 02/16/18 Fluticasone/Salmeterol [Advair HFA 115-21 mcg Inhaler] 2 puff IH Q12 02/16/18 Folic Acid [Folvite 1 mg Tablet] 1 mg PO DAILY 02/16/18 Levothyroxine Sodium 112 mcg PO Q6AM 02/16/18 Megestrol Acetate 20 ml PO DAILY 02/16/18 Oxycodone HCl/Acetaminophen [Percocet 10-325 mg Tablet] 1 tab PO Q4HP PRN MDD 6 TABS IN 24 HOURS 02/16/18 Tiotropium S[place] [Spiriva Respimat] 1 puff IH Q12 02/16/18 Vitamin B Complex 1 tab PO DAILY 02/16/18 Zolpidem Tartrate [Ambien] 10 mg PO HSP PRN 02/16/18 Docusate Sodium [Colace] 1 - 2 tab PO HSP PRN 02/17/18 Ferrous Sulfate [Iron] 325 mg PO TID 02/17/18 Lactulose 10 ml PO BID 02/17/18 Melatonin/Pyridoxine HCl (B6) [Melatonin 5 mg Tablet] 1 each PO HSP PRN 02/17/18 Aspirin [Aspirin 81 mg Chewable Tablet] 81 mg PO DAILY tab.chew 02/23/18 Atorvastatin Calcium [Lipitor 10 mg Tablet] 10 mg PO QHS tablet 02/23/18 Calcium Acetate [Phoslo 667 mg Capsule] 667 mg PO MEALS capsule 02/23/18 Ceftazidime Pentahydrate [Fortaz Inj 1 gm Vial] 1 gm INJ DAILY #10 vial 02/23/18 Cholecalciferol (Vitamin D3) [Vitamin D3 1000 Unit Tablet] 1,000 unit PO DAILY tablet 02/23/18 Clonazepam [Klonopin 1 mg Tablet] 0.5 mg PO Q12HP PRN tablet 02/23/18 Diltiazem HCl [Cardizem 30 mg Tablet] 30 mg PO Q8 #90 tablet 02/23/18 Levothyroxine Sodium [Synthroid 0.112 mg Tablet] 0.112 mg PO Q6AM tablet 02/23/18 Metoprolol Succinate [Toprol Xl 25 mg Tab.sr] 25 mg PO DAILY #30 tab.sr.24h 02/23/18 Midodrine HCl [Proamatine 5 mg Tablet] 5 mg PO TID #90 tablet 02/23/18 Oxycodone HCl [Oxy-Ir 5 mg Tablet] 5 mg PO Q4HP PRN tablet 02/23/18 Oxycodone HCl/Acetaminophen [Percocet 5-325 mg Tablet] 1 tab PO Q4HP PRN tablet 02/23/18 Trazodone HCl [Desyrel 50 mg Tablet] 50 mg PO HSP PRN #30 tablet 02/23/18 Vancomycin HCl [Vancocin Inj 1000 mg Vial] 1,000 mg IPER Q72H #3 vial 02/23/18 History of Present Illness Patient complains of: bilateral lower ext cellulities, sob History of Present Illness: JULIANNA MCKEON JR is a 72 year old male with a past medical history of end- stage renal failure on peritoneal dialysis, atrial fibrillation, coronary artery disease, hypertension, venous stasis with recurrent cellulitis of the leg and anemia of chronic disease. He presents to the emergency room for abnormal labs drawn yesterday resulting in a hemoglobin of 6.3. 6 days ago his hemoglobin was 7.0. In the emergency room his hemoglobin is found to be 6.1 and is ordered 2 units of packed red blood cells. He has no active source of bleed denying melena or or discolored peritoneal fluid.. He complains of bilateral leg pain and erythema for which he has been treated with Keflex and doxycycline.Patient's buttonhole maker Dr. Femi Eric gives orders for peritoneal dialysis every 6 hours with a 1.5 L exchange and 1.5% solution. , vancomycin and cefoxitin. He is referred to the hospitalist for admission Hospital Course Hospital Course: (1) Anemia Qualifiers: Anemia type: unspecified type Qualified Code(s): D64.9 - Anemia, unsp ecified Is this a current diagnosis for this admission?: Yes Plan: -Stable. No evidence of active bleeding. Likely anemia of chronic disease - he did receive 2 units of PRBC while in the hospital. Hgb 6.1--> 8.5--> 9.3--> 8.0--> 8.5 (2) Bilateral lower leg cellulitis Is this a current diagnosis for this admission?: Yes Plan: -Significantly improved; erythema nearly resolved, edema reduced, patient remains afebrile w/ nml WBC. -The patient does endorse frequent episodes of cellulitis to his lower extremities; likely component of peripheral vascular disease. -Blood cultures were negative -continue Fortaz 1g x 10 days and 1g iv vancomycin q 72h x 3 doses; dosing per nephrology. -Continue to elevate extremities. (3) Dependence on peritoneal dialysis Is this a current diagnosis for this admission?: Yes Plan: per Nephrology. Patient refuses hemodialysis. (4) Constipation Qualifiers: Constipation type: unspecified constipation type Qualified Code(s): K59.00 - Constipation, unspecified Is this a current diagnosis for this admission?: Yes Plan: Resolved with Lactulose and Colace daily. (5) Coronary artery disease Qualifiers: Coronary Disease-Associated Artery/Lesion type: [place] artery [place] vs. transplanted heart: [place] heart Associated angina: without angina Qualified Code(s): I25.10 - Atherosclerotic heart disease of [place] coronary artery without angina pectoris Is this a current diagnosis for this admission?: Yes Plan: -Stable. Without chest pain. Monitored on Telemetry -EKG demonstrated sinus tachycardia with left bundle branch block (chronic) -Troponins were elevated to 0.253 on admission; they trended down x4 to 0.179 -Discussed with cardiology, no indications that the patient is experiencing acute coronary syndrome. -Continue daily ASA and statin therapy. (6) AFIB/VTACH -Patient had a 9 beat run of V. tach. He was asymptomatic during that time. He was started on 30 mg of Cardizem every 8 hours. -Paroxysmal he goes in and out of atrial fibrillation. He is aware of when this happens. He remains asymptomatic during those periods of time. -Not on anticoagulation due to risk of falls and anemia. (7) Hypotension -Secondary to metoprolol and Cardizem used for AFIB/VTACH. Patient will continue on 5 mg 3 times daily Midodrine (8) CHF -Listed in previous diagnosis list. Last echo in 2015 showed a normal ejection fraction. Needs a new outpatient echo. Continued on aspirin and statins. Not on STEPHEN or arm due to kidney function. Currently on beta-josselin. Physical Exam Vital Signs: Temp Pulse Resp BP Pulse Ox 97.9 F 85 18 121/73 99 02/23/18 08:05 02/23/18 12:03 02/23/18 08:05 02/23/18 12:03 02/23/18 08:05 Intake & Output 02/22/18 02/23/18 02/24/18 06:59 06:59 06:59 Intake Total 4977 5340 3000 Output Total 5500 5800 3400 Balance -358 -601 -632 Weight 67.1 kg 66.5 kg 64 kg General appearance: PRESENT: no acute distress, thin Head exam: PRESENT: atraumatic, normocephalic Eye exam: PRESENT: conjunctiva pink, EOMI, PERRLA. ABSENT: scleral icterus Ear exam: PRESENT: normal external ear exam Mouth exam: PRESENT: moist, tongue midline Respiratory exam: PRESENT: clear to auscultation tata Cardiovascular exam: PRESENT: irregular rhythm, other - irr-irr. Pulses: PRESENT: other - diminished peripheral pulses BLLE. warm. perfused. GI/Abdominal exam: PRESENT: normal bowel sounds, soft. ABSENT: distended, guarding, mass, organolmegaly, rebound, tenderness Rectal exam: PRESENT: deferred Extremities exam: PRESENT: +1 edema - BLLE- mild erythema. multiple poor healing wounds on ext. none appear to be actively infectious Musculoskeletal exam: PRESENT: full ROM Neurological exam: PRESENT: alert, awake, oriented to person, oriented to place, oriented to time, oriented to situation, CN II-XII grossly intact. ABSENT: motor sensory deficit Psychiatric exam: PRESENT: appropriate affect Results Laboratory Results: 02/22/18 05:43 02/23/18 06:04 02/23/18 06:04 Sodium 136.9 L Potassium 5.6 H Chloride 100 Carbon Dioxide 22 Anion Gap 15 BUN 114 H Creatinine 10.19 H Est GFR ( Amer) 6 L Est GFR (Non-Af Amer) 5 L Glucose 115 H Calcium 8.4 02/16/18 02/17/18 02/17/18 18:57 01:02 01:02 Creatine Kinase 138 CK-MB (CK-2) 14.70 H Troponin I 0.253 0.247 02/17/18 02/17/18 02/17/18 07:15 07:15 13:28 Creatine Kinase 123 133 CK-MB (CK-2) 13.30 H Troponin I 0.244 02/17/18 02/18/18 13:28 09:15 Creatine Kinase CK-MB (CK-2) 14.80 H Troponin I 0.226 0.179 Impressions: Abdomen X-Ray 02/16/18 20:48 IMPRESSION: Borderline dilated loops of small bowel may be due to ileus. Moderate amount of stool is also noted in the right colon and may be due to constipation. Qualifiers - * PATIENT BEING DISCHARGED WITH ANY OF THE FOLLOWING DIAGNOSIS: No Plan Discharge Plan: Follow up with Nephrology next week as instructed. Continue with peritoneal dialysis per nephrology's instructions. Continue 1 g of ceftaz IV daily for 10 days. Continue 1 g of IV vancomycin every 3 days x3 doses. Follow-up with your primary care physician in the next 7-10 days. Time Spent: Greater than 30 Minutes
== END 2018-02-23 15:07 | disposition home health service (06) | DRG 291 ==
LOC: ER 17:21 → EH 21:04 → 3S 22:37
PROVIDERS: ADMIT Internal Medicine; ATTEND Internal Medicine
PROC: 30233N1 Transfusion of Nonautologous Red Blood Cells into Peripheral Vein, Percutaneous Approach (ICD-10-PCS; 2018-02-16)
PROC: 3E1M39Z Irrigation of Peritoneal Cavity using Dialysate, Percutaneous Approach (ICD-10-PCS; principal; 2018-02-23)
DX: I13.2 Hypertensive heart and chronic kidney disease with heart failure and with stage 5 chronic kidney disease, or end stage renal disease (principal); N18.6 End stage renal disease; I50.41 Acute combined systolic (congestive) and diastolic (congestive) heart failure; R64 Cachexia; L03.116 Cellulitis of left lower limb; L03.115 Cellulitis of right lower limb; N25.81 Secondary hyperparathyroidism of renal origin; I47.2 Ventricular tachycardia; E87.5 Hyperkalemia; I95.2 Hypotension due to drugs; S31.000A Unspecified open wound of lower back and pelvis without penetration into retroperitoneum, initial encounter; I48.0 Paroxysmal atrial fibrillation; D63.1 Anemia in chronic kidney disease; I44.7 Left bundle-branch block, unspecified; I25.10 Atherosclerotic heart disease of native coronary artery without angina pectoris; K44.9 Diaphragmatic hernia without obstruction or gangrene; M19.90 Unspecified osteoarthritis, unspecified site; K59.00 Constipation, unspecified; M62.81 Muscle weakness (generalized); I87.2 Venous insufficiency (chronic) (peripheral); T44.7X5A Adverse effect of beta-adrenoreceptor antagonists, initial encounter; T46.1X5A Adverse effect of calcium-channel blockers, initial encounter; R19.5 Other fecal abnormalities; R74.8 Abnormal levels of other serum enzymes; Z99.2 Dependence on renal dialysis; Z79.82 Long term (current) use of aspirin; Z88.2 Allergy status to sulfonamides; Z68.20 Body mass index [BMI] 20.0-20.9, adult; Z91.15 Patient's noncompliance with renal dialysis; Z91.14 Patient's other noncompliance with medication regimen; Z82.49 Family history of ischemic heart disease and other diseases of the circulatory system
CPT/HCPCS: 36415; 36430; 74019; 80048; 80053; 80202; 82272; 82550; 82553; 82962; 83605; 83735; 84100; 84484; 85025; 85027; 86850; 86900; 86901; 86920; 87040; 87070; 87075; 87205; 89050; 90945; 90947; 93005; 93010; 96360; 99285; J0713; J1644; J1815; J3370; J3490; J7040; J7050; P9016; Q4081; S0028

== ENCOUNTER 2018-03-11 21:23 | Emergency (ER) | payer MEDICARE, OTHER ==
[2018-03-11] MEDS ORDERED: METOPROLOL TARTRATE 50 MG TABLET PO ONE (23:00)
[2018-03-11] MEDS ORDERED: MORPHINE SULFATE IR 15 MG TABLET PO ONE (23:01)
[2018-03-11 23:13] LABS: HEMATOCRIT 33.2 % (37.9-51.0); HEMOGLOBIN 10.6 g/dL (13.5-17.0); MEAN CORPUSCULAR HEMOGLOBIN 31.2 pg (27.0-33.4); MEAN CORPUSCULAR HGB CONC 32.1 g/dL (32.0-36.0); MEAN CORPUSCULAR VOLUME 97 fl (80-97); PLATELET COUNT 103 10^3/uL (150-450); RED BLOOD COUNT 3.41 10^6/uL (4.35-5.55); RED CELL DISTRIBUTION WIDTH 16.4 % (11.5-14.0); WHITE BLOOD COUNT 8.7 10^3/uL (4.0-10.5)
[2018-03-12 00:02] LABS: ANION GAP 19 (5-19); BLOOD UREA NITROGEN 100 mg/dL (7-20); CARBON DIOXIDE 20 mmol/L (22-30); CHLORIDE 99 mmol/L (98-107); GLUCOSE 114 mg/dL (75-110); POTASSIUM 3.8 mmol/L (3.6-5.0); SODIUM 138.3 mmol/L (137-145)
[2018-03-12 00:14] LABS: CALCIUM 6.5 mg/dL (8.4-10.2)
--- NOTE | 2018-03-12 00:29 | RADIOLOGY REPORT (SQ) ---
EXAM DESCRIPTION: CT LUMBAR SPINE WITHOUT IV CONTRAST COMPLETED DATE/TME: 03/11/2018 23:52 CLINICAL HISTORY: 72 years, Male, fall, low back pain COMPARISON: None. TECHNIQUE: 298 Images stored on PACS. All CT scanners at this facility use dose modulation, iterative reconstruction, and/or weight based dosing when appropriate to reduce radiation dose to as low as reasonably achievable (ALARA). [facility]: Dose Right [facility]: CareDose [facility]: Dose Right [facility]: Teradose 4D [facility]: M2 Digital Limited LIMITATIONS: None. FINDINGS: 5 lumbar type vertebral bodies, for the purposes of this exam. Dextroconvex scoliosis. Vertebral body height and alignment is preserved. Diffuse disc space narrowing with vacuum disc phenomenon throughout the lumbar spine. Endplate degenerative changes, osteophytic spurring, and facet arthropathy is also present throughout the lumbar spine. Limited evaluation of extraspinal anatomic structures shows severe atheromatous changes. Diffuse disc bulging at the L3-4 and L4-5 levels resulting in at least moderate neural foraminal narrowing and central canal stenosis at these levels. IMPRESSION: No CT evidence for acute lumbar spine abnormality. Diffuse/multilevel degenerative change, as above. Dextroconvex scoliosis.. TECHNICAL DOCUMENTATION: Quality ID # [id number]: Final reports with documentation of one or more dose reduction techniques (e.g., Automated exposure control, adjustment of the mA and/or kV according to patient size, use of iterative reconstruction technique) copyright 2011 [employer]- All Rights Reserved
--- NOTE | 2018-03-12 00:52 | ER Document Report ---
ED General - General Chief Complaint: General Weakness Stated Complaint: FALL Time Seen by Provider: 03/11/18 21:29 Notes: Patient is a 72-year-old chronically ill individual with a history of end-stage renal disease with peritoneal dialysis dependence, atrial fibrillation, hypertension, resents with 4 days of sacral and low back pain after having a fall down several steps landing directly on his buttocks. States that since that time he has had a throbbing, aching, severe pain to his low back and sacrum. States nothing seems to improve the pain, worsened by any attempt at movement. No history of similar injuries in the past. Denies injuring any of the location of his body during that fall. Has not seen his primary care doctor regarding today's concerns. Does state that he has a history of chronic pain to his neck and back and is currently followed in pain management for this issue. When asked regarding his atrial fibrillation management the patient reports that he has been discontinued off of his metoprolol although he is unable to tell me which provided at this time when this happened. TRAVEL OUTSIDE OF THE [place] IN LAST 30 DAYS: No - Related Data Allergies/Adverse Reactions: Sulfa (Sulfonamide Antibiotics) Allergy (Verified 02/16/18 18:16) Past Medical History - General Information source: Patient - Social History Smoking Status: Former Smoker Chew tobacco use (# tins/day): No Frequency of alcohol use: None Drug Abuse: None Lives with: Alone Family History: Hypertension Patient has suicidal ideation: No Patient has homicidal ideation: No - Past Medical History Cardiac Medical History: Reports: Hx Atrial Fibrillation, Hx Coronary Artery Disease, Hx Hypertension Denies: Hx Heart Attack Pulmonary Medical History: Reports: Hx COPD Denies: Hx Asthma Neurological Medical History: Denies: Hx Cerebrovascular Accident, Hx Seizures Renal/ Medical History: Reports: Hx End Stage Renal Disease, Hx Peritoneal Dialysis GI Medical History: Reports: Hx Hiatal Hernia. Denies: Hx Hepatitis, Hx Ulcer Musculoskeletal Medical History: Reports Hx Arthritis Psychiatric Medical History: Denies: Hx Depression Infectious Medical History: Denies: Hx Hepatitis Past Surgical History: Reports: Hx Cardiac Catheterization - CABG, Hx Cardiac Surgery, Hx Open Heart Surgery. Denies: Hx Pacemaker - Immunizations Hx Pneumococcal Vaccination: 11/28/14 Review of Systems - Review of Systems Notes: Constitutional: Negative for fever. Eyes: Negative for visual changes. ENT: Negative for facial injury Cardiovascular: Negative for chest injury. Respiratory: Negative for shortness of breath. Gastrointestinal: Negative for abdominal injury. Genitourinary: Negative for genital injury Musculoskeletal: Positive for low back injury Skin: Negative for laceration/abrasions. Neurological: Negative for head injury. Physical Exam - Vital signs Vitals: Temp Resp Pulse Ox 97.8 F 19 96 03/11/18 22:04 03/11/18 22:04 03/11/18 22:04 Interpretation: Tachycardic Notes: PHYSICAL EXAMINATION: GENERAL: Frail, elderly, no acute distress HEAD: Atraumatic, normocephalic. EYES: Pupils equal round and reactive to light, extraocular movements intact, sclera anicteric, conjunctiva are normal. ENT: nares patent, no oral pharyngeal trauma. No hemotympanum, no Negrete's sign, no raccoon eyes. NECK: No midline cervical spine tenderness. Patient able to move their head to 45 bilaterally without any discomfort. LUNGS: Breath sounds clear to auscultation bilaterally and equal. No wheezes rales or rhonchi. HEART: Regular rate and rhythm without murmurs. CHEST WALL: No ecchymosis over the chest wall. ABDOMEN: Soft, nontender, normoactive bowel sounds. No guarding, no rebound. No abdominal bruising. PD catheter in place. EXTREMITIES: Normal range of motion, no pitting or edema. No long bone deformities. BACK: Tenderness on palpation of the L4-5 space as well as the sacrum. No other midline tenderness, step-offs or deformities. NEUROLOGICAL: 5 out of 5 strength both distally and proximally bilateral lower extremities. 2+ patellar reflexes bilaterally. No clonus. Sensation grossly intact in the bilateral lower extremities. PSYCH: Normal mood, normal affect. SKIN: Warm, Dry, normal turgor, no rashes or lesions noted. Course - Re-evaluation Re-evalutation: 03/12/18 00:56 Presentation of a well appearing elderly patient in no acute distress, vitals within normal limits after a mechanical fall 4 days ago. Patient denies a syncopal episode as the cause for today's fall. No focal neurologic deficits on exam, no evidence of basilar skull fracture on exam without evidence of hemotympanum, raccoon eyes, or periauricular hematoma. No papilledema. Patient is not on anticoagulation. GCS is 15. No loss of consciousness. No episodes of vomiting. He also reports that he did not hit his head, landing directly onto his bottom. No indication for CT imaging of the head or cervical spine. Patient has no focal deformities or limited range of motion in any joint space. Chest and abdominal exam are benign without any focal tenderness, shortness of breath, or bruising over the chest or abdominal wall. Patient has no flank tenderness. Patient's main complaint is of sacral and lumbar spinal pain. CT of the L-spine without any evidence of acute fracture. Patient was also in atrial figuration with rapid ventricular response time arrival. The patient reports that he supposed to be taking metoprolol but apparently there was a miscommunication and he thought the medication had been stopped. Review of his hospitalization course in the end of January does reveal that he was discharged home on metoprolol succinate and should be taking this medication. A dose of metoprolol tartrate was given here in the emergency department with resolution of his A. fib with rapid ventricular response. He has been represcribed Toprol succinate as an outpatient. There is no obvious findings on trauma exam today and therefore no further imaging or evaluation will be obtained at this time. At this time will discharge with return precautions and follow-up recommendations. Verbal discharge instructions given a the bedside and opportunity for questions given. Medication warnings reviewed. Patient is in agreement with this plan and has verbalized understanding of return precautions and the need for primary care follow-up in the next 24-72 hours. - Vital Signs Vital signs: Temp Pulse Resp BP Pulse Ox 97.8 F 92 27 H 115/77 94 03/11/18 22:04 03/12/18 00:29 03/12/18 00:40 03/12/18 00:40 03/12/18 00:40 - Laboratory Result Diagrams: 03/11/18 23:05 03/11/18 23:05 Laboratory results interpreted by me: 03/11/18 03/11/18 23:05 23:05 RBC 3.41 L Hgb 10.6 L Hct 33.2 L RDW 16.4 H Plt Count 103 L Carbon Dioxide 20 L BUN 100 H Creatinine 11.89 H Est GFR ( Amer) 5 L Est GFR (Non-Af Amer) 4 L Glucose 114 H Calcium 6.5 L* - Diagnostic Test Radiology reviewed: Reports reviewed - EKG Interpretation by Me Additional EKG results interpreted by me: 03/12/18 00:58 Atrial fibrillation with rapid ventricular response, low bundle branch block. No [facility] pathology secretary/transcriptionist. Discharge - Discharge Clinical Impression: Atrial fibrillation with RVR, Dependence on peritoneal dialysis, Hypocalcemia Fall Qualifiers: Encounter type: initial encounter Qualified Code(s): W19.XXXA - Unspecified fall, initial encounter Lower back injury Qualifiers: Encounter type: initial encounter Qualified Code(s): S39.92XA - Unspecified injury of lower back, initial encounter Condition: Stable Disposition: HOME, SELF-CARE Additional Instructions: You have been seen in the Emergency Department (ED) today following a fall. Your workup today did not reveal any injuries that require you to stay in the hospital. You can expect, though, to be stiff and sore for the next several days. You can take Tylenol 650 mg every 6 hours as needed for pain. If this does not control your pain take [place] 1 tab every 6 hours. You can apply a hot pack or electric heating pad to the sore areas. You can also use topical "Aspercreme with lidocaine" to sore areas as needed. Please follow up with your primary care doctor as soon as possible regarding today's ED visit and your recent fall. Call your doctor or return to the ED if you develop a sudden or severe headache, confusion, slurred speech, facial droop, weakness or numbness in any arm or leg, extreme fatigue, vomiting more than two times, severe abdominal pain, or other symptoms that concern you. As we discussed you do need to continue taking metoprolol. You were prescribed this at time of discharge at the end of January. It has been represcribed today to ensure that you continue taking the medication as your heart rate was initially elevated when he arrived as you have not been taking that medication. Prescriptions: Metoprolol Succinate [Toprol Xl 25 mg Tab.sr] 25 mg PO DAILY #30 tab.sr.24h Referrals: Basil ROMERO MD [Primary Care Provider] - Follow up as needed
[2018-03-12] MEDS ORDERED: LIDOCAINE 5% (700 MG) TRANSDERMAL ADH..PATCH TP ONE (00:53)
[2018-03-12] MEDS ORDERED: CALCIUM ACETATE 667 MG CAPSULE PO ONE (00:53)
[2018-03-12] MEDS ORDERED: HYDROCODONE/ACETAMINOPHEN 5-325 MG (6 TAB/ER DISP) PO PRN (00:56)
[2018-03-12] MEDS ORDERED: CALCIUM ACETATE 667 MG CAPSULE ONE (01:20)
[2018-03-12 01:47] VITALS: BP 113/85
--- NOTE | 2018-03-12 08:57 | EKG REPORT ---
SEVERITY:- ABNORMAL ECG - ATRIAL FIBRILLATION, V-RATE 106-165 VENTRICULAR PREMATURE COMPLEX LEFT BUNDLE BRANCH BLOCK INFERIOR Q WAVES, POSSIBLY DUE TO LBBB : Confirmed by: Kd Longoria MD 12-Mar-2018 08:56:13
== END 2018-03-12 02:00 | disposition home or self-care (01) ==
LOC: ER 21:23
DX: R53.1 Weakness (principal); S39.92XA Unspecified injury of lower back, initial encounter; W10.9XXA Fall (on) (from) unspecified stairs and steps, initial encounter; E83.51 Hypocalcemia; I48.2 Chronic atrial fibrillation; I44.7 Left bundle-branch block, unspecified; I12.0 Hypertensive chronic kidney disease with stage 5 chronic kidney disease or end stage renal disease; N18.6 End stage renal disease; Z99.2 Dependence on renal dialysis; Z95.1 Presence of aortocoronary bypass graft
CPT/HCPCS: 93005; 99284; 36415; 85027; 80048; 72131; 93010; A9270 ×4

== ENCOUNTER 2018-03-16 14:11 | Inpatient (IN) | payer MEDICARE, OTHER ==
[2018-03-16 15:03] LABS: VENOUS BLOOD BASE EXCESS -2.5 mmol/L; VENOUS BLOOD HCO3 24.1 mmol/L (20-32); VENOUS BLOOD PCO2 52.6 mmHg (35-63); VENOUS BLOOD PH 7.28 (7.30-7.42)
[2018-03-16 15:03] LABS: ABSOLUTE EOSINOPHILS # (AUTO) 0.1 10^3/uL (0.0-0.6); ABSOLUTE LYMPHOCYTES (AUTO) 0.6 10^3/uL (0.5-4.7); ABSOLUTE MONOCYTES (AUTO) 0.9 10^3/uL (0.1-1.4); ABSOLUTE NEUT (AUTO) 7.3 10^3/uL (1.7-8.2); BASOPHILS % (AUTO) 0.5 % (0-2); EOSINOPHILS % (AUTO) 0.8 % (0-6); HEMATOCRIT 26.3 % (37.9-51.0); HEMOGLOBIN 8.4 g/dL (13.5-17.0); LYMPHOCYTES % (AUTO) 6.3 % (13-45); MEAN CORPUSCULAR HEMOGLOBIN 31.5 pg (27.0-33.4); MEAN CORPUSCULAR VOLUME 99 fl (80-97); MONOCYTES % (AUTO) 10.4 % (3-13); PLATELET COUNT 113 10^3/uL (150-450); RED BLOOD COUNT 2.67 10^6/uL (4.35-5.55); RED CELL DISTRIBUTION WIDTH 17.1 % (11.5-14.0); TOTAL CELLS COUNTED % (AUTO) 100 %
[2018-03-16] MEDS ORDERED: RINGERS SOLUTION,LACTATED 1,000 ML IV ONE (15:05)
[2018-03-16 15:10] LABS: INTERNATIONAL RATION (INR) 1.31; PROTHROMBIN TIME 16.9 SEC (11.4-15.4)
--- NOTE | 2018-03-16 15:16 | ER Document Report ---
ED General - General Chief Complaint: Skin Problem Stated Complaint: LEG PAIN Time Seen by Provider: 03/16/18 14:43 Mode of Arrival: Medic Information source: Patient, [facility] Records Notes: 72-year-old male with coronary artery disease, atrial fibrillation, hypertension, COPD, end-stage renal disease who undergoes peritoneal dialysis daily presents with complaint of weakness. Patient states he recently completed a course of Keflex that was prescribed by his engine assembler Dr. Eric. He state s this was for lower extremity cellulitis. Patient states that he attempted to get up from his chair today and was unable to do so. He reports profound weakness. Patient has had nausea, diarrhea for approximately 3 days. He denies any fever, chest pain, shortness of breath, abdominal pain. Patient is on 2 L continuously at home. He reports that he has no home health aide to assist him, he does not eat regularly due to inability to acquire food. Patient reports a recent fall outside his home. He states that he was seen after the fall but has had back pain since that time. TRAVEL OUTSIDE OF THE [place] IN LAST 30 DAYS: No - HPI Onset: Just prior to arrival Onset/Duration: Sudden Quality of pain: Achy Severity: Moderate Associated symptoms: Diarrhea, Nausea, Weakness. denies: Chest pain, Nonproductive cough, Productive cough, Fever, Leg swelling, Vomiting, Shortness of breath Exacerbated by: Denies Relieved by: Denies Similar symptoms previously: Yes Recently seen / treated by doctor: Yes - Related Data Allergies/Adverse Reactions: Sulfa (Sulfonamide Antibiotics) Allergy (Verified 02/16/18 18:16) Past Medical History - General Information source: Patient, [facility] Records - Social History Smoking Status: Former Smoker Frequency of alcohol use: None Drug Abuse: None Lives with: Alone Family History: Hypertension Patient has suicidal ideation: No Patient has homicidal ideation: No - Past Medical History Cardiac Medical History: Reports: Hx Atrial Fibrillation, Hx Coronary Artery Disease, Hx Hypertension Denies: Hx Heart Attack Pulmonary Medical History: Reports: Hx COPD Denies: Hx Asthma Neurological Medical History: Denies: Hx Cerebrovascular Accident, Hx Seizures Renal/ Medical History: Reports: Hx End Stage Renal Disease. Denies: Hx Peritoneal Dialysis GI Medical History: Reports: Hx Hiatal Hernia. Denies: Hx Hepatitis, Hx Ulcer Musculoskeletal Medical History: Reports Hx Arthritis Psychiatric Medical History: Denies: Hx Depression Infectious Medical History: Denies: Hx Hepatitis Past Surgical History: Reports: Hx Cardiac Catheterization - CABG, Hx Cardiac Surgery, Hx Open Heart Surgery. Denies: Hx Pacemaker - Immunizations Hx Pneumococcal Vaccination: 11/28/14 Review of Systems - Review of Systems Constitutional: Malaise, Weakness, Weight loss EENT: denies: Blurred vision, Nose congestion Cardiovascular: denies: Chest pain, Dizziness Respiratory: denies: Cough, Short of breath Gastrointestinal: Diarrhea, Nausea, Poor appetite, Poor fluid intake. denies: Abdominal pain Genitourinary: denies: Dysuria Male Genitourinary: No symptoms reported Musculoskeletal: Back pain Physical Exam - Vital signs Vitals: Resp 03/16/18 14:18 Interpretation: Normal, Tachycardic. No: Hypotensive - Notes Notes: PHYSICAL EXAMINATION: GENERAL: Thin, frail, cachectic HEAD: Atraumatic, normocephalic. EYES: Pupils equal round and reactive to light, extraocular movements intact, sclera anicteric, conjunctiva are normal. ENT: Nares patent, oropharynx clear without exudates. Moist mucous membranes. NECK: Normal range of motion, supple without lymphadenopathy LUNGS: Diminished breath sounds bilaterally. No tachypnea, no rhonchi, no wheezing, no accessory muscle use. HEART: Tachycardic, irregular rhythm ABDOMEN: Soft, nontender, nondistended abdomen. No guarding, no rebound. No masses appreciated. Musculoskeletal: Normal range of motion, no pitting or edema. No cyanosis. NEUROLOGICAL: Cranial nerves grossly intact. Normal speech Normal sensory, motor exams PSYCH: Normal mood, normal affect. SKIN: Bilateral lower extremity erythema without warmth. 2 superficial ulcers of the lower extremities bilaterally. Course - Re-evaluation Re-evalutation: Laboratory 03/16/18 03/16/18 03/16/18 14:15 14:45 14:45 WBC 9.0 RBC 2.67 L Hgb 8.4 L Hct 26.3 L MCV 99 H MCH 31.5 MCHC 32.0 RDW 17.1 H Plt Count 113 L Seg Neutrophils % 82.0 H Lymphocytes % 6.3 L Monocytes % 10.4 Eosinophils % 0.8 Basophils % 0.5 Absolute Neutrophils 7.3 Absolute Lymphocytes 0.6 Absolute Monocytes 0.9 Absolute Eosinophils 0.1 Absolute Basophils 0.0 PT 16.9 H INR 1.31 VBG pH 7.28 L VBG pCO2 52.6 VBG HCO3 24.1 VBG Base Excess -2.5 Sodium Potassium Chloride Carbon Dioxide Anion Gap BUN Creatinine Est GFR ( Amer) Est GFR (Non-Af Amer) Glucose Lactic Acid Calcium Total Bilirubin Direct Bilirubin Neonat Total Bilirubin Neonat Direct Bilirubin Neonat Indirect Bili AST ALT Alkaline Phosphatase Total Protein Albumin 03/16/18 03/16/18 14:45 14:45 WBC RBC Hgb Hct MCV MCH MCHC RDW Plt Count Seg Neutrophils % Lymphocytes % Monocytes % Eosinophils % Basophils % Absolute Neutrophils Absolute Lymphocytes Absolute Monocytes Absolute Eosinophils Absolute Basophils PT INR VBG pH VBG pCO2 VBG HCO3 VBG Base Excess Sodium 139.7 Potassium 4.3 Chloride 104 Carbon Dioxide 22 Anion Gap 14 BUN 92 H Creatinine 10.44 H Est GFR ( Amer) 6 L Est GFR (Non-Af Amer) 5 L Glucose 149 H Lactic Acid 1.4 Calcium 5.4 L* Total Bilirubin 0.3 Direct Bilirubin 0.3 Neonat Total Bilirubin Not Reportable Neonat Direct Bilirubin Not Reportable Neonat Indirect Bili Not Reportable AST 30 ALT 23 Alkaline Phosphatase 59 Total Protein 4.7 L Albumin 2.3 L Chest X-Ray 03/16/18 15:05 IMPRESSION: Cardiomegaly with no shara pulmonary edema. Small right pleural effusion. Temp Pulse Resp BP Pulse Ox 98.5 F 130 H 16 102/77 96 03/16/18 19:50 03/16/18 20:15 03/16/18 20:15 03/16/18 19:50 03/16/18 20:15 03/16/18 22:43 72-year-old male presents with complaints of weakness, inability to ambulate, lower extremity pain and erythema. Patient was recently treated with Keflex by Dr. Eric for cellulitis. Patient states that he lives alone. Has no home health aide and does not eat regularly due to inability to obtain food. Patient was placed on parachute officer and EKG was obtained which showed him to be in atrial fibrillation with RVR. Chest x-ray shows right-sided pleural effusion. VBG does show the patient to be acidotic. Patient's albumin is low. Patient does not appear toxic but he does appear significantly malnourished, dehydrated. Patient has been accepted for admission by the hospitalist. - Vital Signs Vital signs: Temp Pulse Resp BP Pulse Ox 98.5 F 130 H 16 102/77 96 03/16/18 19:50 03/16/18 20:15 03/16/18 20:15 03/16/18 19:50 03/16/18 20:15 - Laboratory Result Diagrams: 03/16/18 14:45 03/16/18 14:45 Laboratory results interpreted by me: 03/16/18 03/16/18 03/16/18 14:15 14:45 14:45 RBC 2.67 L Hgb 8.4 L Hct 26.3 L MCV 99 H RDW 17.1 H Plt Count 113 L Seg Neutrophils % 82.0 H Lymphocytes % 6.3 L PT 16.9 H VBG pH 7.28 L BUN Creatinine Est GFR ( Amer) Est GFR (Non-Af Amer) Glucose Calcium Total Protein Albumin 03/16/18 14:45 RBC Hgb Hct MCV RDW Plt Count Seg Neutrophils % Lymphocytes % PT VBG pH BUN 92 H Creatinine 10.44 H Est GFR ( Amer) 6 L Est GFR (Non-Af Amer) 5 L Glucose 149 H Calcium 5.4 L* Total Protein 4.7 L Albumin 2.3 L - Diagnostic Test Radiology reviewed: Image reviewed, Reports reviewed - EKG Interpretation by Me Rate: Tachycardia Rhythm: A.Fib When compared to previous EKG there are: No significant change Discharge - Discharge Clinical Impression: Atrial fibrillation with RVR, Hypocalcemia, Tachycardia, ESRD (end stage renal disease), Pleural effusion due to CHF (congestive heart failure), 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
[2018-03-16] MEDS ORDERED: RINGERS SOLUTION,LACTATED 1,000 ML IV PRN (15:23)
[2018-03-16 15:26] LABS: ALANINE AMINOTRANSFERASE 23 U/L (21-72); ALBUMIN 2.3 g/dL (3.5-5.0); ALKALINE PHOSPHATASE 59 U/L (38-126); ANION GAP 14 (5-19); ASPARTATE AMINO TRANSFERASE 30 U/L (17-59); BILIRUBIN,DIRECT 0.3 mg/dL (0.0-0.4); BILIRUBIN,TOTAL 0.3 mg/dL (0.2-1.3); BLOOD UREA NITROGEN 92 mg/dL (7-20); CARBON DIOXIDE 22 mmol/L (22-30); CHLORIDE 104 mmol/L (98-107); GLUCOSE 149 mg/dL (75-110); POTASSIUM 4.3 mmol/L (3.6-5.0); SODIUM 139.7 mmol/L (137-145); TOTAL PROTEIN 4.7 g/dL (6.3-8.2)
--- NOTE | 2018-03-16 15:35 | RADIOLOGY REPORT (SQ) ---
EXAM DESCRIPTION: CHEST 2 VIEWS COMPLETED DATE/TIME: 03/16/2018 3:26 pm REASON FOR STUDY: weakness COMPARISON: 01/15/2018 EXAM PARAMETERS: NUMBER OF VIEWS: two views TECHNIQUE: Digital Frontal and Lateral radiographic views of the chest acquired. RADIATION DOSE: NA LIMITATIONS: none FINDINGS: LUNGS AND PLEURA: Pulmonary vascular prominence. No shara pulmonary edema. Small right p leural effusion. MEDIASTINUM AND HILAR STRUCTURES: No masses or contour abnormalities. HEART AND VASCULAR STRUCTURES: Cardiomegaly. BONES: No acute findings. HARDWARE: None in the chest. OTHER: No other significant finding. IMPRESSION: Cardiomegaly with no shara pulmonary edema. Small right pleural effusion. TECHNICAL DOCUMENTATION: JOB ID: [id number] [employer]- All Rights Reserved Reading location - IP/workstation name: [email or web address]
[2018-03-16 15:47] LABS: CALCIUM 5.4 mg/dL (8.4-10.2)
[2018-03-16] MEDS ORDERED: CALCIUM GLUCONATE 1000 MG/10 ML INJ IV ONE (15:56)
[2018-03-16] MEDS ORDERED: FENTANYL CITRATE INJ/PF 100 MCG/2 ML AMPUL IV ONE (15:57)
--- NOTE | 2018-03-16 17:03 | PDOC H&P ---
History of Present Illness Admission Date/PCP: Basil ERIC MD History of Present Illness: JULIANNA morse is a very pleasant unfortunate a 72 year old male patient with multiple comorbidities including atrial fibrillation, hypertension, end-stage renal disease on peritoneal dialysis, COPD, coronary artery disease and peripheral arterial disease presents with chief complaint of generalized body weakness and leg swelling. Patient has a long-standing history of bilateral venous stasis and recurrent cellulitis. Patient denied any chills, fever, cough or chest pain. His initial blood work shows marked hypoglycemia with calcium level of 5.4. At ER patient is given calcium gluconate. His heart rate is also ranging between 107 and 110. The last 3 weeks patient has been sedentary. He has multiple lesion on his back most probably from pressure ulcer. He is chronically sick looking and emaciated. Past Medical History Cardiac Medical History: Reports: Atrial Fibrillation, Coronary Artery Disease, Hypertension Denies: Myocardial Infarction Pulmonary Medical History: Reports: Chronic Obstructive Pulmonary Disease (COPD) Denies: Asthma Neurological Medical History: Denies: Seizures Renal/ Medical History: Reports: End Stage Renal Disease GI Medical History: Reports: Hiatal Hernia Denies: Hepatitis Musculoskeltal Medical History: Reports: Arthritis Psychiatric Medical History: Denies: Depression Hematology: Reports: Anemia Denies: Sickle Cell Disease Past Surgical History Past Surgical History: Reports: Cardiac Catheterization - CABG Denies: Pacemaker Social History Lives with: Alone Smoking Status: Former Smoker Frequency of Alcohol Use: None Hx Recreational Drug Use: No Drugs: None Hx Prescription Drug Abuse: No - Advance Directive Resuscitation Status: Full Code Family History Family History: Hypertension Parental Family History Reviewed: Yes Children Family History Reviewed: Yes Sibling(s) Family History Reviewed.: Yes Medication/Allergy Home Medications: Aspirin [Aspirin 81 mg Chewable Tablet] 81 mg PO DAILY 02/16/18 Atorvastatin Calcium [Lipitor 10 mg Tablet] 10 mg PO QHS 02/16/18 Calcium Acetate [Phoslo 667 mg Capsule] 667 mg PO MEALS 02/16/18 Cholecalciferol (Vitamin D3) [Vitamin D3 1000 Unit Tablet] 1,000 unit PO DAILY 02/16/18 Colchicine [Colcrys 0.6 mg Tablet] 0.6 mg PO DAILYP PRN 02/16/18 Fluticasone/Salmeterol [Advair HFA 115-21 mcg Inhaler] 2 puff IH Q12 02/16/18 Folic Acid [Folvite 1 mg Tablet] 1 mg PO DAILY 02/16/18 Levothyroxine Sodium 112 mcg PO Q6AM 02/16/18 Megestrol Acetate 20 ml PO DAILY 02/16/18 Oxycodone HCl/Acetaminophen [Percocet 10-325 mg Tablet] 1 tab PO Q4HP PRN MDD 6 TABS IN 24 HOURS 02/16/18 Tiotropium [place] [Spiriva Respimat] 1 puff IH Q12 02/16/18 Vitamin B Complex 1 tab PO DAILY 02/16/18 Zolpidem Tartrate [Ambien] 10 mg PO HSP PRN 02/16/18 Docusate Sodium [Colace] 1 - 2 tab PO HSP PRN 02/17/18 Ferrous Sulfate [Iron] 325 mg PO TID 02/17/18 Lactulose 10 ml PO BID 02/17/18 Melatonin/Pyridoxine HCl (B6) [Melatonin 5 mg Tablet] 1 each PO HSP PRN 02/17/18 Aspirin [Aspirin 81 mg Chewable Tablet] 81 mg PO DAILY tab.chew 02/23/18 Atorvastatin Calcium [Lipitor 10 mg Tablet] 10 mg PO QHS tablet 02/23/18 Calcium Acetate [Phoslo 667 mg Capsule] 667 mg PO MEALS capsule 02/23/18 Ceftazidime Pentahydrate [Fortaz Inj 1 gm Vial] 1 gm INJ DAILY #10 vial 02/23/18 Cholecalciferol (Vitamin D3) [Vitamin D3 1000 Unit Tablet] 1,000 unit PO DAILY tablet 02/23/18 Clonazepam [Klonopin 1 mg Tablet] 0.5 mg PO Q12HP PRN tablet 02/23/18 Diltiazem HCl [Cardizem 30 mg Tablet] 30 mg PO Q8 #90 tablet 02/23/18 Levothyroxine Sodium [Synthroid 0.112 mg Tablet] 0.112 mg PO Q6AM tablet 02/23/18 Metoprolol Succinate [Toprol Xl 25 mg Tab.sr] 25 mg PO DAILY #30 tab.sr.24h 02/23/18 Midodrine HCl [Proamatine 5 mg Tablet] 5 mg PO TID #90 tablet 02/23/18 Oxycodone HCl [Oxy-Ir 5 mg Tablet] 5 mg PO Q4HP PRN tablet 02/23/18 Oxycodone HCl/Acetaminophen [Percocet 5-325 mg Tablet] 1 tab PO Q4HP PRN tablet 02/23/18 Trazodone HCl [Desyrel 50 mg Tablet] 50 mg PO HSP PRN #30 tablet 02/23/18 Vancomycin HCl [Vancocin Inj 1000 mg Vial] 1,000 mg IPER Q72H #3 vial 02/23/18 Metoprolol Succinate [Toprol Xl 25 mg Tab.sr] 25 mg PO DAILY #30 tab.sr.24h 03/12/18 Allergies/Adverse Reactions: Sulfa (Sulfonamide Antibiotics) Allergy (Verified 02/16/18 18:16) Review of Systems Constitutional: PRESENT: as per HPI Nose, Mouth, and Throat: PRESENT: as per HPI Cardiovascular: PRESENT: as per HPI Respiratory: PRESENT: as per HPI Gastrointestinal: PRESENT: as per HPI Neurological: PRESENT: as per HPI Psychiatric: PRESENT: as per HPI Physical Exam Vital Signs: Temp Pulse Resp BP Pulse Ox 33 H 108/71 95 03/16/18 15:01 03/16/18 15:01 03/16/18 15:01 Intake & Output 03/15/18 03/16/18 03/17/18 06:59 06:59 06:59 Weight 56.699 kg General appearance: PRESENT: thin, other Head exam: PRESENT: atraumatic Eye exam: PRESENT: conjunctiva pale Neck exam: ABSENT: carotid bruit, JVD, lymphadenopathy, thyromegaly Respiratory exam: PRESENT: decreased breath sounds Cardiovascular exam: PRESENT: irregular rhythm, tachycardia GI/Abdominal exam: PRESENT: normal bowel sounds, soft. ABSENT: distended, guarding, mass, organolmegaly, rebound, tenderness Neurological exam: PRESENT: alert, awake, oriented to time, reflexes normal Psychiatric exam: PRESENT: normal mood Results Laboratory Results: 03/16/18 14:45 03/16/18 14:45 03/16/18 03/16/18 03/16/18 14:15 14:45 14:45 WBC 9.0 RBC 2.67 L Hgb 8.4 L Hct 26.3 L MCV 99 H MCH 31.5 MCHC 32.0 RDW 17.1 H Plt Count 113 L Seg Neutrophils % 82.0 H Lymphocytes % 6.3 L Monocytes % 10.4 Eosinophils % 0.8 Basophils % 0.5 Absolute Neutrophils 7.3 Absolute Lymphocytes 0.6 Absolute Monocytes 0.9 Absolute Eosinophils 0.1 Absolute Basophils 0.0 VBG pH 7.28 L VBG pCO2 52.6 VBG HCO3 24.1 VBG Base Excess -2.5 Sodium 139.7 Potassium 4.3 Chloride 104 Carbon Dioxide 22 Anion Gap 14 BUN 92 H Creatinine 10.44 H Est GFR ( Amer) 6 L Est GFR (Non-Af Amer) 5 L Glucose 149 H Lactic Acid Calcium 5.4 L* Total Bilirubin 0.3 AST 30 ALT 23 Alkaline Phosphatase 59 Total Protein 4.7 L Albumin 2.3 L 03/16/18 14:45 WBC RBC Hgb Hct MCV MCH MCHC RDW Plt Count Seg Neutrophils % Lymphocytes % Monocytes % Eosinophils % Basophils % Absolute Neutrophils Absolute Lymphocytes Absolute Monocytes Absolute Eosinophils Absolute Basophils VBG pH VBG pCO2 VBG HCO3 VBG Base Excess Sodium Potassium Chloride Carbon Dioxide Anion Gap BUN Creatinine Est GFR ( Amer) Est GFR (Non-Af Amer) Glucose Lactic Acid 1.4 Calcium Total Bilirubin AST ALT Alkaline Phosphatase Total Protein Albumin Impressions: Chest X-Ray 03/16/18 15:05 IMPRESSION: Cardiomegaly with no shara pulmonary edema. Small right pleural effusion. Assessment & Plan - Diagnosis (1) Severe hypocalcemia Is this a current diagnosis for this admission?: Yes Plan: May be related to malnutrition and end-stage renal disease. We will supplement him with with calcium carbonate and vitamin D. (2) Atrial fibrillation with RVR Is this a current diagnosis for this admission?: Yes Plan: Patient has been started on Cardizem. Will admit him to telemetry floor (3) Moderate to severe malnutrition Is this a current diagnosis for this admission?: Yes Plan: Patient needs nutritional supplement. Will consult gum worker. (4) Bilateral lower leg cellulitis Is this a current diagnosis for this admission?: Yes Plan: Patient has been started on ceftriaxone (5) End-stage renal disease (ESRD) Is this a current diagnosis for this admission?: Yes Plan: We will continue his peritoneal dialysis. Consult Dr. Eric his primary coffee attendant. (6) COPD (chronic obstructive pulmonary disease) Qualifiers: Emphysema type: unspecified Is this a current diagnosis for this admission?: Yes Plan: As needed bronchodilator.
[2018-03-16] MEDS ORDERED: ONDANSETRON HCL INJ/PF 4 MG/2 ML SDV IV PRN (17:04)
[2018-03-16] MEDS: OXYCODONE-ACETAMINOPHEN 5-325 MG TABLET PO PRN ×2 (17:53→22:14)
[2018-03-16] MEDS: IPRATROPIUM/ALBUTEROL 0.5-2.5 MG/3 ML AMPUL NEB SCH (20:15)
[2018-03-16] MEDS: FAMOTIDINE 20 MG TABLET PO SCH (22:15)
[2018-03-16] MEDS: HEPARIN SOD (PORCINE) 5,000 UNIT/ML 1 ML SYRINGE SUBCUT SCH (22:15)
--- NOTE | 2018-03-16 23:06 | EKG REPORT ---
SEVERITY:- ABNORMAL ECG - ATRIAL FIBRILLATION LEFT BUNDLE BRANCH BLOCK : Confirmed by: Stephen Quiñonez 16-Mar-2018 23:05:59
[2018-03-16] MEDS ORDERED: DILTIAZEM HCL 60 MG TABLET PO ONE (23:45)
[2018-03-17] MEDS ORDERED: DILTIAZEM HCL/D5W 125 MG/125 ML RTUINJ IV PRN (01:17)
[2018-03-17] MEDS ORDERED: DIGOXIN INJ 0.5 MG/2 ML AMPULE IV ONE (01:17)
[2018-03-17] MEDS ORDERED: CALCIUM GLUCONATE 2,222 MG in DEXTROSE 5%-WATER 100 ML IV ONE ×2 (01:17→18:30)
[2018-03-17] MEDS ORDERED: CALCIUM GLUCONATE 1000 MG/10 ML INJ IV PRN (01:22)
[2018-03-17] MEDS: IPRATROPIUM/ALBUTEROL 0.5-2.5 MG/3 ML AMPUL NEB SCH ×4 (01:42→20:19)
[2018-03-17] MEDS ORDERED: DILTIAZEM HCL/D5W 125 MG/125 ML RTUINJ IV ONE (01:59)
[2018-03-17] MEDS ORDERED: LORAZEPAM INJ 2 MG/1 ML VIAL IV ONE (03:00)
[2018-03-17 05:08] LABS: ABSOLUTE LYMPHOCYTES (AUTO) 0.7 10^3/uL (0.5-4.7); ABSOLUTE MONOCYTES (AUTO) 0.8 10^3/uL (0.1-1.4); ABSOLUTE NEUT (AUTO) 6.6 10^3/uL (1.7-8.2); BASOPHILS % (AUTO) 0.6 % (0-2); EOSINOPHILS % (AUTO) 0.4 % (0-6); HEMATOCRIT 25.1 % (37.9-51.0); HEMOGLOBIN 8.1 g/dL (13.5-17.0); LYMPHOCYTES % (AUTO) 8.5 % (13-45); MEAN CORPUSCULAR HEMOGLOBIN 31.4 pg (27.0-33.4); MEAN CORPUSCULAR HGB CONC 32.3 g/dL (32.0-36.0); MEAN CORPUSCULAR VOLUME 97 fl (80-97); MONOCYTES % (AUTO) 9.9 % (3-13); PLATELET COUNT 105 10^3/uL (150-450); RED BLOOD COUNT 2.59 10^6/uL (4.35-5.55); SEGMENTED NEUTROPHILS % (AUTO) 80.6 % (42-78); TOTAL CELLS COUNTED % (AUTO) 100 %; WHITE BLOOD COUNT 8.2 10^3/uL (4.0-10.5)
[2018-03-17 05:16] LABS: ANION GAP 15 (5-19); BLOOD UREA NITROGEN 88 mg/dL (7-20); CARBON DIOXIDE 20 mmol/L (22-30); CHLORIDE 104 mmol/L (98-107); GLUCOSE 219 mg/dL (75-110); POTASSIUM 4.1 mmol/L (3.6-5.0); SODIUM 139.2 mmol/L (137-145)
[2018-03-17 05:33] LABS: CALCIUM 5.9 mg/dL (8.4-10.2)
[2018-03-17] MEDS ORDERED: CALCIUM GLUCONATE 1,000 MG in DEXTROSE 5%-WATER 50 ML IV ONE (06:00)
[2018-03-17] MEDS ORDERED: CALCIUM GLUCONATE 1000 MG/10 ML INJ IV ONE (06:16)
[2018-03-17] MEDS: HEPARIN SOD (PORCINE) 5,000 UNIT/ML 1 ML SYRINGE SUBCUT SCH ×3 (06:26→22:52)
[2018-03-17 06:30] LABS: FLUID TYPE PERITONEAL
[2018-03-17 06:32] LABS: FLUID APPEARANCE CLOUDY; FLUID COLOR STRAW; FLUID SOURCE ABDOMEN; FLUID VISCOSITY LIQUID
[2018-03-17] MEDS ORDERED: DILTIAZEM HCL 120 MG CAP.SR.24H PO ONE (07:00)
[2018-03-17] MEDS: FAMOTIDINE 20 MG TABLET PO SCH ×2 (09:04→22:41)
[2018-03-17] MEDS: OXYCODONE-ACETAMINOPHEN 5-325 MG TABLET PO PRN ×3 (10:41→22:41)
[2018-03-17] MEDS ORDERED: VANCOMYCIN HCL 1,000 MG in DEXTROSE 5%-WATER 250 ML IPER PRN (11:00)
[2018-03-17] MEDS ORDERED: GENTAMICIN SULFATE 60 MG in DEXTROSE 5%-WATER 100 ML IV PRN (11:00)
[2018-03-17] MEDS: GENTAMICIN SULFATE INJ 80 MG/2 ML VIAL IPER PRN (11:48)
[2018-03-17] MEDS: VANCOMYCIN HCL INJ 1000 MG VIAL IPER PRN (11:49)
[2018-03-17] MEDS: CLONAZEPAM 1 MG TABLET PO PRN (17:20)
[2018-03-17] MEDS ORDERED: (PENDING PHARMACY ID) (Zolpidem Tartrate [Ambien] 10 MG) PO PRN (17:37)
[2018-03-17] MEDS ORDERED: TRAZODONE HCL 50 MG TABLET PO PRN (17:37)
--- NOTE | 2018-03-17 17:51 | PDOC PROGRESS REPORT ---
Subjective Progress Note for:: 03/17/18 Subjective:: Atrial fib w/ RVR- rate is better controlled. 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: A.FIB WITH RVR,HYPOCALCEMIA, CELLULITIS Physical Exam Vital Signs: Temp Pulse Resp BP Pulse Ox 98.8 F 110 H 18 120/49 L 93 03/17/18 15:24 03/17/18 15:24 03/17/18 15:24 03/17/18 15:24 03/17/18 15:24 Intake & Output 03/16/18 03/17/18 03/18/18 06:59 06:59 06:59 Intake Total 4000 1582 Output Total 1700 1500 Balance 2300 82 Weight 131 lb 6.328 oz 132 lb 0.91 oz General appearance: PRESENT: no acute distress Head exam: PRESENT: atraumatic, normocephalic Eye exam: PRESENT: EOMI. ABSENT: conjunctival injection, scleral icterus Ear exam: PRESENT: normal external ear exam Mouth exam: PRESENT: tongue midline Neck exam: ABSENT: tracheal deviation Respiratory exam: PRESENT: clear to auscultation tata, symmetrical Cardiovascular exam: PRESENT: +S1, +S2 Pulses: PRESENT: +2 pedal pulses bilateral GI/Abdominal exam: PRESENT: normal bowel sounds, soft. ABSENT: tenderness Neurological exam: PRESENT: alert, awake, oriented to person, oriented to place, oriented to time, oriented to situation, CN II-XII grossly intact Skin exam: PRESENT: dry, erythema - b/l LE- wound noted on shins, warm Results Laboratory Results: 03/17/18 04:08 03/17/18 04:08 03/17/18 03/17/18 03/17/18 04:08 04:08 04:08 WBC 8.2 RBC 2.59 L Hgb 8.1 L Hct 25.1 L MCV 97 MCH 31.4 MCHC 32.3 RDW 17.0 H Plt Count 105 L Seg Neutrophils % 80.6 H Lymphocytes % 8.5 L Monocytes % 9.9 Eosinophils % 0.4 Basophils % 0.6 Absolute Neutrophils 6.6 Absolute Lymphocytes 0.7 Absolute Monocytes 0.8 Absolute Eosinophils 0.0 Absolute Basophils 0.0 Sodium 139.2 Potassium 4.1 Chloride 104 Carbon Dioxide 20 L Anion Gap 15 BUN 88 H Creatinine 10.60 H Est GFR ( Amer) 6 L Est GFR (Non-Af Amer) 5 L Glucose 219 H Calcium 5.9 L* TSH 9.88 H Fluid Type Fluid Source Fluid Color Fluid Appearance Fluid Viscosity Fluid WBC Fluid RBC 03/17/18 05:25 WBC RBC Hgb Hct MCV MCH MCHC RDW Plt Count Seg Neutrophils % Lymphocytes % Monocytes % Eosinophils % Basophils % Absolute Neutrophils Absolute Lymphocytes Absolute Monocytes Absolute Eosinophils Absolute Basophils Sodium Potassium Chloride Carbon Dioxide Anion Gap BUN Creatinine Est GFR ( Amer) Est GFR (Non-Af Amer) Glucose Calcium TSH Fluid Type PERITONEAL Fluid Source ABDOMEN Fluid Color STRAW Fluid Appearance CLOUDY Fluid Viscosity LIQUID Fluid WBC 22 Fluid RBC 0 Impressions: Chest X-Ray 03/16/18 15:05 IMPRESSION: Cardiomegaly with no shara pulmonary edema. Small right pleural effusion. Assessment & Plan - Diagnosis (1) Atrial fibrillation with RVR Is this a current diagnosis for this admission?: Yes (2) Bilateral lower leg cellulitis Is this a current diagnosis for this admission?: Yes (3) COPD (chronic obstructive pulmonary disease) Qualifiers: Emphysema type: unspecified Is this a current diagnosis for this admission?: Yes (4) ESRD (end stage renal disease) Is this a current diagnosis for this admission?: Yes (5) Severe hypocalcemia Is this a current diagnosis for this admission?: Yes - Plan Summary Plan Summary: severe hypocalcemia- spoke with hip hop dance instructor- will give calcium gluconate, TUMS 1000mg QHS, will continue to monitor on Tele. corrected calcium is 7.3. atrial fib w/ rvr -started on cardizem here- overnight was on the drip for a. fib RVR- that was stopped and he was ordered cardizem 120mg daily- i have stopped that- check his home meds and he's on metoprolol 25mg XL- will start him on metoprolol 12.5mg BID from [facility]. may need labetalol IV PRN if he goes into RVR again- his BP is normal - may need to increase metoprolol tomorrow to better control his HR. currently he's rate controlled and asymptomatic. i do not see any anticoagulation on his home list- only ASA- will restart that for now. cellulitis-dr tee is giving him vanco- but not daily- will monitor his progress. ESRD- on PD- but Dr. Tee has convinced him to go for HD- since he lives home alone and this is becoming difficulty to do this alone at home. will need to speak with d/c systems planner about placement.
[2018-03-17] MEDS ORDERED: EPOETIN ALFA INJ 40000 UNIT/1 ML (RENAL) SUBCUT ONE (18:30)
[2018-03-17] MEDS: FERROUS SULFATE 325 MG TABLET PO SCH (18:34)
[2018-03-17] MEDS ORDERED: METOPROLOL TARTRATE 25 MG TABLET PO SCH (22:00)
[2018-03-17] MEDS ORDERED: (PENDING PHARMACY ID) (Fluticasone/Salmeterol [Advair Hfa 115-21 Mcg Inhaler] 2 PUFF) IH SCH (22:00)
[2018-03-17] MEDS ORDERED: (PENDING PHARMACY ID) (Tiotropium Bromide [Spiriva Respimat] 1 PUFF) IH SCH (22:00)
--- NOTE | 2018-03-17 22:13 | PDOC CONSULTATION ---
Consultation Consult Date: 03/17/18 Attending physician:: RUFINO CARTWRIGHT Consult reason:: I was asked to see the patient for supervision of peritoneal dialysis, and hypocalcemia. History of Present Illness Admission Date/PCP: 03/16/18 16:48 Basil ERIC MD History of Present Illness: JULIANNA MCKEON JR is a 72 year old male with history of end-stage renal disease on peritoneal dialysis, atrial fibrillation, coronary artery disease, hypertension, recurrent cellulitis of lower extremity with venous stasis, and anemia of chronic kidney disease who was admitted last night because of profound weakness and persistent lower extremity cellulitis. Patient said that yesterday he was unable to get up. He admits that he has been feeling weak and he has had episodes of falls. He also states that he was having nausea and diarrhea for the last 3 days. His oral intake has also been decreased. As for his lower extremity cellulitis this has been an ongoing issue since about a month ago. He was treated with intraperitoneal vancomycin and ceftazidime for a few doses last month followed by couple of courses of oral antibiotics. Last antibiotics he was on was Keflex given by Dr. Eric which he said he completed. Patient thinks that he is dehydrated. Due to weakness and difficulty of walking his access to food is also very limited. He claims that he is drinking some fluids. He denies any fever but claims that he has some chills. He has occasional chest pains and shortness of breath. Upon presentation he also had atrial fibrillation with rapid ventricular response but rate is now better controlled. Patient lives by himself and his son helps minimally do his peritoneal dialysis at home. We have discussed the possibility of switching to hemodialysis about 2 months ago but he declined it. However this time he states that he probably needs to go to a half-way facility because he is becoming difficult for him to be by himself and doing peritoneal dialysis. He uses the cycler machine at night and supposed to do a midday exchange but he does not always do the midd ay exchange. He also was supposed to be receiving a fill volume of 2 L but then he keeps claiming that he can only handle 1.5 L because it makes him feel full so that he does not want to eat. Upon admission his peritoneal dialysis exchanges was started. Early this morning he was noted to have cloudy peritoneal dialysis effluent. So immediately a PD fluid cell count and culture was sent. I also initiated him on vancomycin 1 g and gentamicin 60 mg intraperitoneally this morning. The PD fluid culture still pending so far. Past Medical History Cardiac Medical History: Reports: Atrial Fibrillation, Coronary Artery Disease, Hypertension-primary Pulmonary Medical History: Reports: Chronic Obstructive Pulmonary Disease (COPD) Neurological Medical History: Denies: Seizures Renal/ Medical History: Reports: End Stage Renal Disease, Secondary Hyperparathyroidism GI Medical History: Reports: Hiatal Hernia Musculoskeltal Medical History: Reports: Arthritis Hematology Medical History: Reports Anemia of Chronic Kidney Disease Past Surgical History Past Surgical History: Reports: Cardiac Catheterization - CABG Social History Lives with: Alone Smoking Status: Former Smoker Frequency of Alcohol Use: None Hx Recreational Drug Use: No Drugs: None, Marijuana Hx Prescription Drug Abuse: No - Advance Directive Resuscitation Status: Full Code Family History Family History: No family history of kidney disease Parental Family History Reviewed: Yes Children Family History Reviewed: Yes Sibling(s) Family History Reviewed.: Yes Medication/Allergy Home Medications: Aspirin [Aspirin 81 mg Chewable Tablet] 81 mg PO DAILY 02/16/18 Atorvastatin Calcium [Lipitor 10 mg Tablet] 10 mg PO QHS 02/16/18 Calcium Acetate [Phoslo 667 mg Capsule] 667 mg PO MEALS 02/16/18 Fluticasone/Salmeterol [Advair HFA 115-21 mcg Inhaler] 2 puff IH Q12 02/16/18 Folic Acid [Folvite 1 mg Tablet] 1 mg PO DAILY 02/16/18 Levothyroxine Sodium 112 mcg PO Q6AM 02/16/18 Megestrol Acetate 20 ml PO DAILY 02/16/18 Tiotropium Center Line [Spiriva Respimat] 1 puff IH Q12 02/16/18 Vitamin B Complex 1 tab PO DAILY 02/16/18 Zolpidem Tartrate [Ambien] 10 mg PO HSP PRN 02/16/18 Ferrous Sulfate [Iron] 325 mg PO TID 02/17/18 Lactulose 10 ml PO BID PRN 02/17/18 Melatonin/Pyridoxine HCl (B6) [Melatonin 5 mg Tablet] 1 each PO HSP PRN 02/17/18 Clonazepam [Klonopin 1 mg Tablet] 0.5 mg PO Q12HP PRN tablet 02/23/18 Metoprolol Succinate [Toprol Xl 25 mg Tab.sr] 25 mg PO DAILY #30 tab.sr.24h 12/27/18 Trazodone HCl [Desyrel 50 mg Tablet] 50 mg PO HSP PRN #30 tablet 02/23/18 Allergies/Adverse Reactions: Sulfa (Sulfonamide Antibiotics) Allergy (Verified 02/16/18 18:16) Review of Systems All systems: reviewed and no additional remarkable complaints except as stated Review of Systems: Constitutional: ABSENT: Fever(s), headache(s), weight gain, weight loss; admits fatigue, weakness and occasional chills Eyes: ABSENT: visual disturbances Ears: ABSENT: hearing changes Cardiovascular: ABSENT: dyspnea on exertion, edema, orthropnea, palpitations; admits to occasional chest pains and shortness of breath Respiratory: ABSENT: cough, dyspnea, hemoptysis Gastrointestinal: ABSENT: abdominal pain, constipation, hematemesis, hem atochezia, vomiting; admits nausea and diarrhea Genitourinary: ABSENT: dysuria, hematuria Musculoskeletal: ABSENT: joint swelling Integumentary: ABSENT: rash, wounds; positive lower extremity cellulitis Neurological: ABSENT: abnormal gait, abnormal speech, confusion, dizziness, focal weakness, numbness, syncope Psychiatric: ABSENT: anxiety, depression Endocrine: ABSENT: cold intolerance, heat intolerance, polydipsia, polyuria Hematologic/Lymphatic: ABSENT: easy bleeding, easy bruising, lymphadenopathy Physical Exam Vital Signs: Temp Pulse Resp BP Pulse Ox 98.2 F 117 H 18 101/62 95 03/17/18 19:31 03/17/18 20:21 03/17/18 20:21 03/17/18 19:31 03/17/18 20:21 Intake & Output 03/16/18 03/17/18 03/18/18 06:59 06:59 06:59 Intake Total 4000 4693 Output Total 1700 3200 Balance 2300 1493 Weight 59.6 kg 58.6 kg Exam: General appearance: No acute distress, cooperative, well-developed, well- nourished Head exam: PRESENT: atraumatic, normocephalic Eye exam: PRESENT: Conjunctiva pale, EOMI, PERRLA. ABSENT: conjunctival injection, scleral icterus Mouth exam: PRESENT: moist, neck supple, tongue midline Neck exam: PRESENT: full ROM. ABSENT: carotid bruit, JVD, lymphadenopathy, thyromegaly Respiratory exam: PRESENT: clear to auscultation bilaterally. ABSENT: rales, rhonchi, stridor, wheezes Cardiovascular exam: PRESENT: Irregularly irregular rate and rhythm, +S1, +S2. ABSENT: systolic murmur Pulses: PRESENT: normal radial pulses, normal dorsalis pedis pulses GI/Abdominal exam: PRESENT: normal bowel sounds, soft. PD catheter in place ABSENT: guarding, mass, tenderness Rectal exam: Deferred Extremities exam: PRESENT: full ROM. Trace bilateral lower extremity pitting edema ABSENT: calf tenderness Musculoskeletal: PRESENT: full ROM. ABSENT: deformity Neurological exam: PRESENT: alert, Awake, Oriented to person, Oriented to place, Oriented to time, reflexes normal, CN II-XII grossly intact. ABSENT: motor sensory deficit Psychiatric exam: PRESENT: appropriate affect, normal mood. ABSENT: homicidal ideation, suicidal ideation Skin exam: PRESENT: intact, dry, warm. Positive erythema of bilateral lower extremities with patches of macular rashes on his thighs as well ABSENT: rash Results Laboratory Results: 03/17/18 04:08 03/17/18 04:08 03/17/18 03/17/18 03/17/18 04:08 04:08 04:08 WBC 8.2 RBC 2.59 L Hgb 8.1 L Hct 25.1 L MCV 97 MCH 31.4 MCHC 32.3 RDW 17.0 H Plt Count 105 L Seg Neutrophils % 80.6 H Lymphocytes % 8.5 L Monocytes % 9.9 Eosinophils % 0.4 Basophils % 0.6 Absolute Neutrophils 6.6 Absolute Lymphocytes 0.7 Absolute Monocytes 0.8 Absolute Eosinophils 0.0 Absolute Basophils 0.0 Sodium 139.2 Potassium 4.1 Chloride 104 Carbon Dioxide 20 L Anion Gap 15 BUN 88 H Creatinine 10.60 H Est GFR ( Amer) 6 L Est GFR (Non-Af Amer) 5 L Glucose 219 H Calcium 5.9 L* TSH 9.88 H Fluid Type Fluid Source Fluid Color Fluid Appearance Fluid Viscosity Fluid WBC Fluid RBC 03/17/18 05:25 WBC RBC Hgb Hct MCV MCH MCHC RDW Plt Count Seg Neutrophils % Lymphocytes % Monocytes % Eosinophils % Basophils % Absolute Neutrophils Absolute Lymphocytes Absolute Monocytes Absolute Eosinophils Absolute Basophils Sodium Potassium Chloride Carbon Dioxide Anion Gap BUN Creatinine Est GFR ( Amer) Est GFR (Non-Af Amer) Glucose Calcium TSH Fluid Type PERITONEAL Fluid Source ABDOMEN Fluid Color STRAW Fluid Appearance CLOUDY Fluid Viscosity LIQUID Fluid WBC 22 Fluid RBC 0 Impressions: Chest X-Ray 03/16/18 15:05 IMPRESSION: Cardiomegaly with no shara pulmonary edema. Small right pleural effusion. Assessment & Plan - Diagnosis (1) ESRD (end stage renal disease) Is this a current diagnosis for this admission?: Yes Plan: We will continue CAPD while here in the hospital. We will do 4 exchanges every 6 hours using 1500 mL fill volume since the patient refuses to have 2 L flow volume, we will use 1.5% dialysis solution with systolic blood pressure less than 110 and use 2.5% dialysis solution if systolic blood pressure is greater. He had an initial peritoneal dialysis effluent fluid which was cloudy so I presume diagnosis of peritonitis was made and I gave him a gram of vancomycin and 60 mg of gentamicin intraperitoneally 1 dose each this morning. His initial PD fluid cell count did not really confirm the diagnosis of peritonitis but will wait for the PD fluid culture. We will check the vancomycin and gentamicin trough level in 2 days and decide if we need to continue the antibiotics. Today the patient ultimately tells me that he is needs to be in a half-way facility because of living alone and this profound weakness most recently. I completely agree with this. However explained to the patient that in order for us to do that we would need to switch him to hemodialysis possibly temporarily until he regains his strength. Patient did tell me though that he may need to be in a half-way facility for long-term. After explaining the need to switch to hemodialysis he agreed to proceed. So I have spoken to Dr. Smith to put PermCath early next week to switch him to hemodialysis while here. Until then we will going to continue the peritoneal dialysis here in the hospital. Patient needs to be arrange for half-way facility placement. (2) Bilateral lower leg cellulitis Is this a current diagnosis for this admission?: Yes Plan: The vancomycin and gentamicin that was given intraperitoneally can also help the bilateral lower extremity leg cellulitis. Once we switch to hemodialysis his antibiotics can be given intravenously. (3) Severe hypocalcemia Is this a current diagnosis for this admission?: Yes Plan: Corrected sodium is 7.3. Patient was given several doses of IV calcium gluconate today intermittently for may be a total of 5 g. Advised to start the patient on Tums one thousand milligrams nightly. Will continue calcium acetate phosphorus binders. Also check phosphorus. Check PTH as well. (4) Weakness Is this a current diagnosis for this admission?: Yes Plan: Multifactorial due to concurrent illnesses. (5) Anemia in chronic kidney disease (CKD) Is this a current diagnosis for this admission?: Yes Plan: Patient is due to receive Procrit so we will give him Procrit 40,000 units subcutaneously today. (6) Diarrhea Is this a current diagnosis for this admission?: Yes Plan: Check for C. difficile. (7) Atrial fibrillation with RVR Is this a current diagnosis for this admission?: Yes (8) Moderate to severe malnutrition Is this a current diagnosis for this admission?: Yes (9) Venous insufficiency of both lower extremities Is this a current diagnosis for this admission?: Yes - Notes Notes: Assessment and plan discussed with the patient. Also discussed with Dr. Cartwright. Nephrology service will continue to follow the patient. - Time Time Spent: Greater than 70 Minutes
[2018-03-17] MEDS: CALCIUM CARBONATE 500 MG TAB.CHEW PO SCH (22:41)
[2018-03-17] MEDS: METOPROLOL TARTRATE 25 MG TABLET PO SCH (22:42)
[2018-03-17] MEDS: ATORVASTATIN CALCIUM 10 MG TABLET PO SCH (22:42)
[2018-03-17] MEDS: FLUTICASONE/SALMETEROL DISKUS 250-50 MCG/DOSE IH SCH (22:52)
[2018-03-18] MEDS: IPRATROPIUM/ALBUTEROL 0.5-2.5 MG/3 ML AMPUL NEB SCH ×2 (01:34→08:35)
[2018-03-18] MEDS: OXYCODONE-ACETAMINOPHEN 5-325 MG TABLET PO PRN ×3 (05:52→22:21)
[2018-03-18] MEDS: LEVOTHYROXINE SODIUM 0.112 MG TABLET PO SCH (05:53)
[2018-03-18 06:01] LABS: ABSOLUTE BASOPHILS # (AUTO) 0.1 10^3/uL (0.0-0.2); ABSOLUTE EOSINOPHILS # (AUTO) 0.1 10^3/uL (0.0-0.6); ABSOLUTE LYMPHOCYTES (AUTO) 0.6 10^3/uL (0.5-4.7); ABSOLUTE MONOCYTES (AUTO) 0.8 10^3/uL (0.1-1.4); ABSOLUTE NEUT (AUTO) 5.8 10^3/uL (1.7-8.2); BASOPHILS % (AUTO) 0.7 % (0-2); EOSINOPHILS % (AUTO) 1.7 % (0-6); HEMATOCRIT 23.6 % (37.9-51.0); MEAN CORPUSCULAR HEMOGLOBIN 31.9 pg (27.0-33.4); MEAN CORPUSCULAR HGB CONC 33.2 g/dL (32.0-36.0); MEAN CORPUSCULAR VOLUME 96 fl (80-97); MONOCYTES % (AUTO) 10.9 % (3-13); RED BLOOD COUNT 2.46 10^6/uL (4.35-5.55); RED CELL DISTRIBUTION WIDTH 16.6 % (11.5-14.0); SEGMENTED NEUTROPHILS % (AUTO) 78.7 % (42-78); TOTAL CELLS COUNTED % (AUTO) 100 %; WHITE BLOOD COUNT 7.4 10^3/uL (4.0-10.5)
[2018-03-18 06:12] LABS: PLATELET COUNT 95 10^3/uL (150-450)
[2018-03-18 06:17] LABS: HEMOGLOBIN 7.8 g/dL (13.5-17.0)
[2018-03-18 06:28] LABS: ALANINE AMINOTRANSFERASE 27 U/L (21-72); ALBUMIN 2.2 g/dL (3.5-5.0); ALKALINE PHOSPHATASE 51 U/L (38-126); ANION GAP 15 (5-19); ASPARTATE AMINO TRANSFERASE 14 U/L (17-59); BILIRUBIN,DIRECT 0.2 mg/dL (0.0-0.4); BILIRUBIN,TOTAL 0.2 mg/dL (0.2-1.3); BLOOD UREA NITROGEN 94 mg/dL (7-20); CARBON DIOXIDE 24 mmol/L (22-30); CHLORIDE 101 mmol/L (98-107); GLUCOSE 154 mg/dL (75-110); POTASSIUM 4.1 mmol/L (3.6-5.0); TOTAL PROTEIN 4.6 g/dL (6.3-8.2)
[2018-03-18 06:36] LABS: CALCIUM 6.1 mg/dL (8.4-10.2)
[2018-03-18] MEDS: CLONAZEPAM 1 MG TABLET PO PRN (07:11)
[2018-03-18] MEDS: HEPARIN SOD (PORCINE) 5,000 UNIT/ML 1 ML SYRINGE SUBCUT SCH (07:24)
[2018-03-18] MEDS: CALCIUM ACETATE 667 MG CAPSULE PO SCH ×3 (09:06→17:48)
[2018-03-18] MEDS: FERROUS SULFATE 325 MG TABLET PO SCH ×3 (09:51→17:48)
[2018-03-18] MEDS: FOLIC ACID 1 MG TABLET PO SCH (09:51)
[2018-03-18] MEDS: METOPROLOL TARTRATE 25 MG TABLET PO SCH ×2 (09:52→22:20)
[2018-03-18] MEDS: TIOTROPIUM BROMIDE DPI 5 CAP/KIT (18 MCG/CAP) IH SCH (09:53)
[2018-03-18] MEDS: FLUTICASONE/SALMETEROL DISKUS 250-50 MCG/DOSE IH SCH ×2 (09:53→22:27)
[2018-03-18] MEDS: FAMOTIDINE 20 MG TABLET PO SCH ×2 (09:53→22:21)
[2018-03-18] MEDS: ASPIRIN 81 MG TABLET, CHEWABLE PO SCH (09:53)
--- NOTE | 2018-03-18 09:57 | PDOC PROGRESS REPORT ---
Subjective Progress Note for:: 03/18/18 Subjective:: saw patient today and he states he can't live with this pain anymore. states his back and legs hurt- states its the cellulitis that is hurting him. states he's still not sure about HD vs PD- states he had HD before and it "almost killed me". states "it killed my heart". states he will hire someone at home to help with PD if needed. he denies chest pain, SOB, abdominal pain, n/v or dizziness. 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: A.FIB WITH RVR,HYPOCALCEMIA, CELLULITIS Physical Exam Vital Signs: Temp Pulse Resp BP Pulse Ox 98.1 F 101 H 16 116/66 94 03/18/18 03:22 03/18/18 07:00 03/18/18 03:22 03/18/18 05:00 03/18/18 03:22 Intake & Output 03/17/18 03/18/18 03/19/18 06:59 06:59 06:59 Intake Total 4000 8015.22 Output Total 1700 6050 Balance 2300 1965.22 Weight 131 lb 6.328 oz 129 lb 13.636 oz General appearance: PRESENT: mild distress - states his back is hurting, other - frail appearing Head exam: PRESENT: atraumatic, normocephalic Eye exam: PRESENT: EOMI. ABSENT: conjunctival injection, scleral icterus Mouth exam: PRESENT: tongue midline Teeth exam: PRESENT: poor dentation Neck exam: ABSENT: tracheal deviation Respiratory exam: PRESENT: clear to auscultation tata, symmetrical Cardiovascular exam: PRESENT: +S1, +S2 Pulses: PRESENT: +2 pedal pulses bilateral GI/Abdominal exam: PRESENT: normal bowel sounds, soft. ABSENT: tenderness Extremities exam: PRESENT: +1 edema - b/l LE Neurological exam: PRESENT: alert, awake, oriented to person, oriented to place, oriented to time, oriented to situation, CN II-XII grossly intact Skin exam: PRESENT: dry, erythema - LE- splotchy areas of erythema of LE up to thighs diffuse erythema of shins- likely venous insufficiency would ulcer noted- doesn't seem to be infected, warm Results Laboratory Results: 03/18/18 05:45 03/18/18 05:45 01/19/19 01/19/19 01/19/19 05:45 05:45 05:45 WBC 7.4 RBC 2.46 L Hgb 7.8 L Hct 23.6 L MCV 96 MCH 31.9 MCHC 33.2 RDW 16.6 H Plt Count 95 L Seg Neutrophils % 78.7 H Lymphocytes % 8.0 L Monocytes % 10.9 Eosinophils % 1.7 Basophils % 0.7 Absolute Neutrophils 5.8 Absolute Lymphocytes 0.6 Absolute Monocytes 0.8 Absolute Eosinophils 0.1 Absolute Basophils 0.1 Sodium 140.0 Potassium 4.1 Chloride 101 Carbon Dioxide 24 Anion Gap 15 BUN 94 H Creatinine 10.37 H Est GFR ( Amer) 6 L Est GFR (Non-Af Amer) 5 L Glucose 154 H Calcium 6.1 L* Phosphorus 7.8 H Total Bilirubin 0.2 AST 14 L ALT 27 Alkaline Phosphatase 51 Total Protein 4.6 L Albumin 2.2 L PTH Intact 03/18/18 05:45 WBC RBC Hgb Hct MCV MCH MCHC RDW Plt Count Seg Neutrophils % Lymphocytes % Monocytes % Eosinophils % Basophils % Absolute Neutrophils Absolute Lymphocytes Absolute Monocytes Absolute Eosinophils Absolute Basophils Sodium Potassium Chloride Carbon Dioxide Anion Gap BUN Creatinine Est GFR ( Amer) Est GFR (Non-Af Amer) Glucose Calcium Phosphorus Total Bilirubin AST ALT Alkaline Phosphatase Total Protein Albumin PTH Intact 251.3 H Impressions: Chest X-Ray 03/16/18 15:05 IMPRESSION: Cardiomegaly with no shara pulmonary edema. Small right pleural effusion. 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 atrial fib w/ rvr -checked his home meds and he's on metoprolol 25mg XL- started him on metoprolol 12.5mg BID. may need labetalol IV PRN if he goes into RVR again- his BP is normal - may need to increased dose of metoprolol to better control his HR as needed. currently he's rate controlled and asymptomatic. i do not see any anticoagulation on his home list- only ASA- will continue that for now. cellulitis-dr tee is giving him vanco- but not daily- will monitor his progr ess. i am not so sure it this is cellulitis- seem to be venous insufficiency- he has LE wound but doesn't look to be infected. she has his splotchy erythema of the LE and chest- not sure what that is about. will monitor for now. acute on chronic anemia- Hb 7.8- talked to him about transfusion vs repeat CBC this afternoon and then re-evaluating for transfusion. he doesn't want transfusion and wants me to check his CBC again. his Basline Hb is 8-9- likely due to ESRD ESRD- on PD- but Dr. Tee has convinced him to go for HD- since he lives home alone and this is becoming difficulty to do this alone at home. today he tells me that he doesnt really want HD and thinking about continuing on PD and hiring held at home. states HD "almost killed my heart", states he was on HD 3-4 years ago. unfortunately his overall prognosis is poor given his ESRD, chronic anemia and Atrial fib.
[2018-03-18] MEDS ORDERED: DILTIAZEM HCL 120 MG CAP.SR.24H PO SCH (10:00)
[2018-03-18 14:25] LABS: ABSOLUTE EOSINOPHILS # (AUTO) 0.1 10^3/uL (0.0-0.6); ABSOLUTE LYMPHOCYTES (AUTO) 0.5 10^3/uL (0.5-4.7); ABSOLUTE MONOCYTES (AUTO) 0.8 10^3/uL (0.1-1.4); ABSOLUTE NEUT (AUTO) 5.1 10^3/uL (1.7-8.2); BASOPHILS % (AUTO) 0.7 % (0-2); EOSINOPHILS % (AUTO) 1.8 % (0-6); HEMATOCRIT 27.2 % (37.9-51.0); HEMOGLOBIN 8.9 g/dL (13.5-17.0); MEAN CORPUSCULAR HEMOGLOBIN 31.9 pg (27.0-33.4); MEAN CORPUSCULAR HGB CONC 32.7 g/dL (32.0-36.0); MEAN CORPUSCULAR VOLUME 97 fl (80-97); MONOCYTES % (AUTO) 12.6 % (3-13); PLATELET COUNT 107 10^3/uL (150-450); RED BLOOD COUNT 2.79 10^6/uL (4.35-5.55); RED CELL DISTRIBUTION WIDTH 17.1 % (11.5-14.0); SEGMENTED NEUTROPHILS % (AUTO) 77.9 % (42-78); TOTAL CELLS COUNTED % (AUTO) 100 %; WHITE BLOOD COUNT 6.5 10^3/uL (4.0-10.5)
[2018-03-18] MEDS: CALCIUM CARBONATE 500 MG TAB.CHEW PO SCH (22:19)
[2018-03-18] MEDS: ATORVASTATIN CALCIUM 10 MG TABLET PO SCH (22:21)
[2018-03-18] MEDS: ZOLPIDEM TARTRATE 5 MG TABLET PO PRN (22:22)
[2018-03-18] MEDS ORDERED: METOPROLOL TARTRATE PF/INJ 5 MG/5 ML SDV IV ONE ×2 (22:38→23:15)
[2018-03-19 00:43] LABS: ANION GAP 15 (5-19); BLOOD UREA NITROGEN 95 mg/dL (7-20); CARBON DIOXIDE 24 mmol/L (22-30); CHLORIDE 103 mmol/L (98-107); GLUCOSE 148 mg/dL (75-110); POTASSIUM 4.7 mmol/L (3.6-5.0); SODIUM 142.2 mmol/L (137-145)
[2018-03-19 00:52] LABS: CALCIUM 6.3 mg/dL (8.4-10.2)
[2018-03-19] MEDS ORDERED: CALCIUM GLUCONATE 1,000 MG in DEXTROSE 5%-WATER 50 ML IV ONE (01:30)
[2018-03-19] MEDS ORDERED: CALCIUM GLUCONATE 1000 MG/10 ML INJ IV PRN (01:32)
[2018-03-19] MEDS: MAGNESIUM SULFATE 1 GM/D5W 100 ML IV SCH ×2 (02:35→04:08)
[2018-03-19] MEDS: OXYCODONE-ACETAMINOPHEN 5-325 MG TABLET PO PRN ×3 (04:24→20:22)
[2018-03-19] MEDS: LEVOTHYROXINE SODIUM 0.112 MG TABLET PO SCH (05:43)
[2018-03-19 06:42] LABS: ANION GAP 13 (5-19); BLOOD UREA NITROGEN 97 mg/dL (7-20); CARBON DIOXIDE 24 mmol/L (22-30); CHLORIDE 102 mmol/L (98-107); GLUCOSE 155 mg/dL (75-110); POTASSIUM 4.9 mmol/L (3.6-5.0); SODIUM 139.2 mmol/L (137-145)
[2018-03-19 06:45] LABS: GENTAMICIN-TROUGH 1.7 ug/mL (<2.0)
[2018-03-19 06:46] LABS: VANCOMYCIN,TROUGH 17.2 ug/mL (5.0-20.0)
[2018-03-19 06:56] LABS: CALCIUM 6.9 mg/dL (8.4-10.2)
[2018-03-19] MEDS: CALCIUM ACETATE 667 MG CAPSULE PO SCH ×3 (09:20→17:26)
[2018-03-19] MEDS: CLONAZEPAM 1 MG TABLET PO PRN ×2 (09:20→21:25)
[2018-03-19] MEDS: FERROUS SULFATE 325 MG TABLET PO SCH ×3 (09:21→17:26)
[2018-03-19] MEDS: FOLIC ACID 1 MG TABLET PO SCH (09:21)
[2018-03-19] MEDS: FLUTICASONE/SALMETEROL DISKUS 250-50 MCG/DOSE IH SCH ×2 (09:21→21:26)
[2018-03-19] MEDS: TIOTROPIUM BROMIDE DPI 5 CAP/KIT (18 MCG/CAP) IH SCH (09:21)
[2018-03-19] MEDS: FAMOTIDINE 20 MG TABLET PO SCH ×2 (09:21→21:25)
[2018-03-19] MEDS: METOPROLOL TARTRATE 25 MG TABLET PO SCH ×2 (09:21→21:46)
[2018-03-19] MEDS: ASPIRIN 81 MG TABLET, CHEWABLE PO SCH (09:21)
--- NOTE | 2018-03-19 09:34 | PDOC PROGRESS REPORT ---
Subjective Progress Note for:: 03/19/18 Subjective:: spoke to patient. his pain is better controlled on increased pain med- he's happy about that. i spoke to him today about this code status- he wants to remain FULL for now. his left hand is swollen- states its from the IV that blew yesterday. states its swollen and it is difficult to close his hand 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: A.FIB WITH RVR,HYPOCALCEMIA, CELLULITIS Physical Exam Vital Signs: Temp Pulse Resp BP Pulse Ox 97.6 F 104 H 18 129/100 H 93 03/19/18 07:11 03/19/18 07:11 03/19/18 07:11 03/19/18 07:11 03/19/18 07:11 Intake & Output 03/18/18 03/19/18 03/20/18 06:59 06:59 06:59 Intake Total 8015.22 5110 Output Total 6050 3800 Balance 1965.22 1310 Weight 129 lb 13.636 oz 137 lb 5.568 oz General appearance: PRESENT: no acute distress Head exam: PRESENT: atraumatic, normocephalic Eye exam: PRESENT: EOMI, PERRLA. ABSENT: scleral icterus Ear exam: PRESENT: normal external ear exam Mouth exam: PRESENT: tongue midline Teeth exam: PRESENT: poor dentation Neck exam: ABSENT: tracheal deviation Respiratory exam: PRESENT: clear to auscultation tata, symmetrical Cardiovascular exam: PRESENT: +S1, +S2 Pulses: PRESENT: +2 pedal pulses bilateral GI/Abdominal exam: PRESENT: normal bowel sounds, soft. ABSENT: tenderness Extremities exam: PRESENT: +1 edema - left hand- decrease ROM- pulse intact, edema noted- sensation intact Neurological exam: PRESENT: alert, awake, oriented to person, oriented to place, oriented to time, oriented to situation, CN II-XII grossly intact Skin exam: PRESENT: dry, warm Results Laboratory Results: 03/18/18 14:02 03/19/18 06:08 03/18/18 03/19/18 03/19/18 14:02 00:14 06:08 WBC 6.5 RBC 2.79 L Hgb 8.9 L Hct 27.2 L MCV 97 MCH 31.9 MCHC 32.7 RDW 17.1 H Plt Count 107 L Seg Neutrophils % 77.9 Lymphocytes % 7.0 L Monocytes % 12.6 Eosinophils % 1.8 Basophils % 0.7 Absolute Neutrophils 5.1 Absolute Lymphocytes 0.5 Absolute Monocytes 0.8 Absolute Eosinophils 0.1 Absolute Basophils 0.0 Sodium 142.2 139.2 Potassium 4.7 4.9 Chloride 103 102 Carbon Dioxide 24 24 Anion Gap 15 13 BUN 95 H 97 H Creatinine 10.15 H 10.14 H Est GFR ( Amer) 6 L 6 L Est GFR (Non-Af Amer) 5 L 5 L Glucose 148 H 155 H Calcium 6.3 L* 6.9 L* Magnesium 1.4 L Impressions: Chest X-Ray 03/16/18 15:05 IMPRESSION: Cardiomegaly with no shara pulmonary edema. Small right pleural effusion. Assessment & Plan - Diagnosis (1) Atrial fibrillation with RVR Is this a current diagnosis for this admission?: Yes (2) Bilateral lower leg cellulitis Is this a current diagnosis for this admission?: Yes (3) COPD (chronic obstructive pulmonary disease) Qualifiers: Emphysema type: unspecified Is this a current diagnosis for this admission?: Yes (4) ESRD (end stage renal disease) Is this a current diagnosis for this admission?: Yes (5) Severe hypocalcemia Is this a current diagnosis for this admission?: Yes (6) Swelling of left hand Is this a current diagnosis for this admission?: Yes - Plan Summary Plan Summary: severe hypocalcemia- improved today to 6.9. 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 atrial fib w/ rvr -HR < 110- controlled- started him on metoprolol 12.5mg BID as home med. may need labetalol IV PRN if he goes into RVR again- his BP is controlled- currently he's rate controlled and asymptomatic. i do not see any anticoagulation on his home list- only ASA- will continue that for now. left hand swelling- starts yesterday after a IV infiltrated- will monitor for now- monitor for worsening symptoms or infection. afebrile now. cellulitis-dr tee is giving him vanco- but not daily- will monitor his progress. i am not so sure it this is cellulitis- seem to be venous insufficiency- he has LE wound but doesn't look to be infected. she has his splotchy erythema of the LE and chest- not sure what that is about. will monitor for now. i am considering starting him on keflex for his left hand if it starts to spike a temp. acute on chronic anemia- Hb 8.9 yesterday on repeat in the afternoon - he did not received any transfusion. he doesn't want transfusion unless he really needs it. his Basline Hb is 8-9- likely due to ESRD ESRD- on PD-anuric- Dr. Tee is trying to convince him to go for HD- since he lives home alone and this is becoming difficulty to do PD alone at home. he tells me that he doesnt really want HD and thinking about continuing on PD and hiring help at home. states HD "almost killed my heart", states he was on HD 3- 4 years ago. unfortunately his overall prognosis is poor given his ESRD, chronic anemia and Atrial fib.
[2018-03-19] MEDS: IPRATROPIUM/ALBUTEROL 0.5-2.5 MG/3 ML AMPUL NEB PRN (11:31)
[2018-03-19] MEDS: ATORVASTATIN CALCIUM 10 MG TABLET PO SCH (21:25)
[2018-03-19] MEDS: CALCIUM CARBONATE 500 MG TAB.CHEW PO SCH (21:25)
[2018-03-20] MEDS: OXYCODONE-ACETAMINOPHEN 5-325 MG TABLET PO PRN ×4 (03:37→21:39)
[2018-03-20] MEDS: LEVOTHYROXINE SODIUM 0.112 MG TABLET PO SCH (05:11)
[2018-03-20 05:36] LABS: ALANINE AMINOTRANSFERASE 28 U/L (21-72); ALBUMIN 2.1 g/dL (3.5-5.0); ALKALINE PHOSPHATASE 59 U/L (38-126); ANION GAP 13 (5-19); ASPARTATE AMINO TRANSFERASE 16 U/L (17-59); BILIRUBIN,DIRECT 0.2 mg/dL (0.0-0.4); BILIRUBIN,TOTAL 0.2 mg/dL (0.2-1.3); BLOOD UREA NITROGEN 96 mg/dL (7-20); CALCIUM 7.1 mg/dL (8.4-10.2); CARBON DIOXIDE 24 mmol/L (22-30); CHLORIDE 102 mmol/L (98-107); GLUCOSE 107 mg/dL (75-110); POTASSIUM 5.2 mmol/L (3.6-5.0); SODIUM 139.2 mmol/L (137-145); TOTAL PROTEIN 4.5 g/dL (6.3-8.2)
--- NOTE | 2018-03-20 07:29 | PDOC CONSULTATION ---
Consultation Consult Date: 03/19/18 Attending physician:: RAMU NORIEGA Consult reason:: This patient, now on PD, may be going to a [facility], where PD is not done, would need a perm cath, at least. History of Present Illness Admission Date/PCP: 03/16/18 16:48 Basil ROMERO MD History of Present Illness: JULIANNA MCKEON JR is a 72 year old male Past Medical History Cardiac Medical History: Reports: Atrial Fibrillation, Coronary Artery Disease, Hypertension Denies: Myocardial Infarction Pulmonary Medical History: Reports: Chronic Obstructive Pulmonary Disease (COPD) Denies: Asthma Neurological Medical History: Denies: Seizures Renal/ Medical History: Reports: End Stage Renal Disease GI Medical History: Reports: Hiatal Hernia Denies: Hepatitis Musculoskeltal Medical History: Reports: Arthritis Psychiatric Medical History: Denies: Depression Hematology: Reports: Anemia Denies: Sickle Cell Disease Past Surgical History Past Surgical History: Reports: Cardiac Catheterization - CABG Denies: Pacemaker Social History Lives with: Alone Smoking Status: Former Smoker Frequency of Alcohol Use: None Hx Recreational Drug Use: No Drugs: None, Marijuana Hx Prescription Drug Abuse: No - Advance Directive Resuscitation Status: Full Code Family History Family History: Hypertension Parental Family History Reviewed: No Children Family History Reviewed: No Sibling(s) Family History Reviewed.: No Medication/Allergy Home Medications: Aspirin [Aspirin 81 mg Chewable Tablet] 81 mg PO DAILY 02/16/18 Atorvastatin Calcium [Lipitor 10 mg Tablet] 10 mg PO QHS 02/16/18 Calcium Acetate [Phoslo 667 mg Capsule] 667 mg PO MEALS 02/16/18 Fluticasone/Salmeterol [Advair HFA 115-21 mcg Inhaler] 2 puff IH Q12 02/16/18 Folic Acid [Folvite 1 mg Tablet] 1 mg PO DAILY 02/16/18 Levothyroxine Sodium 112 mcg PO Q6AM 02/16/18 Megestrol Acetate 20 ml PO DAILY 02/16/18 Tiotropium [place] [Spiriva Respimat] 1 puff IH Q12 02/16/18 Vitamin B Complex 1 tab PO DAILY 02/16/18 Zolpidem Tartrate [Ambien] 10 mg PO HSP PRN 02/16/18 Ferrous Sulfate [Iron] 325 mg PO TID 02/17/18 Lactulose 10 ml PO BID PRN 02/17/18 Melatonin/Pyridoxine HCl (B6) [Melatonin 5 mg Tablet] 1 each PO HSP PRN 02/17/18 Clonazepam [Klonopin 1 mg Tablet] 0.5 mg PO Q12HP PRN tablet 02/23/18 Metoprolol Succinate [Toprol Xl 25 mg Tab.sr] 25 mg PO DAILY #30 tab.sr.24h 02/23/18 Trazodone HCl [Desyrel 50 mg Tablet] 50 mg PO HSP PRN #30 tablet 02/23/18 Allergies/Adverse Reactions: Sulfa (Sulfonamide Antibiotics) Allergy (Verified 02/16/18 18:16) Physical Exam Vital Signs: Temp Pulse Resp BP Pulse Ox 97.8 F 54 L 18 113/67 94 03/19/18 11:27 03/19/18 11:31 03/19/18 11:31 03/19/18 11:27 03/19/18 11:31 Intake & Output 03/18/18 03/19/18 03/20/18 06:59 06:59 06:59 Intake Total 8015.22 5110 1500 Output Total 6050 3800 1800 Balance 1965.22 1310 -300 Weight 58.9 kg 62.3 kg 60.3 kg Additional comments: Constitutional: Well-developed well-nourished gentleman, frail build. No apparent acute distress. Eyes: Mucous membranes pale and moist, pupils equal and reactive to light. Conjunctiva normal. Cornea normal. ENT: Hearing grossly normal. External pinna normal to inspection.. Tongue normal to inspection. Cardiac: Heart sounds normal. Respiratory breath sounds are present bilaterally, normal. Normal respiratory effort. Abdomen: Peritoneal dialysis catheter in place. Psychiatric: Judgment, memory, insight seem normal. Mood is pleasant and appropriate. Extremities: Upper extremities show normal range of movement. Pulses present noted to the radial arteries. Capillary refill normal. No cyanosis noted. Muscle wasting noted. Results Laboratory Results: 03/18/18 14:02 03/19/18 06:08 03/18/18 03/19/18 03/19/18 14:02 00:14 06:08 WBC 6.5 RBC 2.79 L Hgb 8.9 L Hct 27.2 L MCV 97 MCH 31.9 MCHC 32.7 RDW 17.1 H Plt Count 107 L Seg Neutrophils % 77.9 Lymphocytes % 7.0 L Monocytes % 12.6 Eosinophils % 1.8 Basophils % 0.7 Absolute Neutrophils 5.1 Absolute Lymphocytes 0.5 Absolute Monocytes 0.8 Absolute Eosinophils 0.1 Absolute Basophils 0.0 Sodium 142.2 139.2 Potassium 4.7 4.9 Chloride 103 102 Carbon Dioxide 24 24 Anion Gap 15 13 BUN 95 H 97 H Creatinine 10.15 H 10.14 H Est GFR ( Amer) 6 L 6 L Est GFR (Non-Af Amer) 5 L 5 L Glucose 148 H 155 H Calcium 6.3 L* 6.9 L* Magnesium 1.4 L Impressions: Chest X-Ray 03/16/18 15:05 IMPRESSION: Cardiomegaly with no shara pulmonary edema. Small right pleural effusion. Assessment & Plan - Diagnosis (1) End-stage renal disease (ESRD) Is this a current diagnosis for this admission?: Yes (2) Anemia Qualifiers: Anemia type: due to chronic kidney disease Qualified Code(s): D64.9 - Anemia, unspecified (3) Atrial fibrillation with RVR Is this a current diagnosis for this admission?: Yes (4) COPD (chronic obstructive pulmonary disease) Qualifiers: Emphysema type: unspecified Is this a current diagnosis for this admission?: Yes (6) Coronary artery disease Qualifiers: Coronary Disease-Associated Artery/Lesion type: [place] artery [place] vs. transplanted heart: [place] heart Associated angina: without angina Qualified Code(s): I25.10 - Atherosclerotic heart disease of [place] coronary artery without angina pectoris (7) Hypertension Qualifiers: Hypertension type: essential hypertension Qualified Code(s): I10 - Essential (primary) hypertension - Plan Summary Plan Summary: In this patient with end-stage renal disease requiring dialysis, insertion of a permacatheter is certainly indicated prior to consideration of an AV fistula. As it is the patient is adamant against going on hemodialysis, he wishes to continue peritoneal dialysis. He believes he will be able to go home and resume his previous regime assisted by his children. I will be available should things change. Thank you for the courtesy of this consultation.
[2018-03-20] MEDS: CALCIUM ACETATE 667 MG CAPSULE PO SCH ×3 (07:54→17:30)
--- NOTE | 2018-03-20 08:43 | PDOC PROGRESS REPORT ---
Subjective Progress Note for:: 03/20/18 Subjective:: saw him this morning- he had no complaints. he's still insisting on PD and not HD. nephrology recommends HD since he's not able to do PD on his own. he has no acute complaints at this time. 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: A.FIB WITH RVR,HYPOCALCEMIA, CELLULITIS Physical Exam Vital Signs: Temp Pulse Resp BP Pulse Ox 97.5 F 104 H 20 92/71 L 92 03/20/18 07:19 03/20/18 07:19 03/20/18 07:19 03/20/18 07:19 03/20/18 07:19 Intake & Output 03/19/18 03/20/18 03/21/18 06:59 06:59 06:59 Intake Total 5110 6490 Output Total 3800 6000 Balance 1310 490 Weight 137 lb 5.568 oz 137 lb 5.568 oz General appearance: PRESENT: no acute distress, other - appears older than stated age Head exam: PRESENT: atraumatic, normocephalic Eye exam: PRESENT: EOMI. ABSENT: conjunctival injection, scleral icterus Ear exam: PRESENT: normal external ear exam Mouth exam: PRESENT: moist Neck exam: ABSENT: tracheal deviation Respiratory exam: PRESENT: clear to auscultation tata, symmetrical Cardiovascular exam: PRESENT: +S1, +S2 GI/Abdominal exam: PRESENT: normal bowel sounds, soft. ABSENT: tenderness Extremities exam: ABSENT: pedal edema Neurological exam: PRESENT: alert, awake, oriented to person, oriented to place, oriented to time, CN II-XII grossly intact Skin exam: PRESENT: dry, erythema - noted on LE and upper thighs and some on the chest, warm Results Laboratory Results: 03/18/18 14:02 03/20/18 03:56 03/20/18 03/20/18 03:56 03:56 Sodium 139.2 Potassium 5.2 H Chloride 102 Carbon Dioxide 24 Anion Gap 13 BUN 96 H Creatinine 9.98 H Est GFR ( Amer) 6 L Est GFR (Non-Af Amer) 5 L Glucose 107 Calcium 7.1 L Total Bilirubin 0.2 AST 16 L ALT 28 Alkaline Phosphatase 59 Total Protein 4.5 L Albumin 2.1 L Free T4 0.81 Impressions: Chest X-Ray 03/16/18 15:05 IMPRESSION: Cardiomegaly with no shara pulmonary edema. Small right pleural effusion. Assessment & Plan - Diagnosis (1) Atrial fibrillation with RVR Is this a current diagnosis for this admission?: Yes (2) Bilateral lower leg cellulitis Is this a current diagnosis for this admission?: Yes (3) COPD (chronic obstructive pulmonary disease) Qualifiers: Emphysema type: unspecified Is this a current diagnosis for this admission?: Yes (4) ESRD (end stage renal disease) Is this a current diagnosis for this admission?: Yes (5) Severe hypocalcemia Is this a current diagnosis for this admission?: Yes (6) Swelling of left hand Is this a current diagnosis for this admission?: Yes - Plan Summary Plan Summary: severe hypocalcemia-continues to improve. 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 may need labetalol IV PRN if he goes into RVR again- his BP is controlled- currently he's rate controlled and asymptomatic. i do not see any anticoagulation on his home list- only ASA- will continue that for now. left hand swelling- better today- will monitor for now- monitor for worsening symptoms or infection. afebrile now. cellulitis-improving slowly- nephrology is giving him vanco intermittently- but not daily- will monitor his progress. i am not so sure it this is cellulitis- seem to be venous insufficiency- he has LE wound but doesn't look to be infected. she has his splotchy erythema of the LE and chest- not sure what that is about. will monitor for now. acute on chronic anemia- stable - he did not received any transfusion. he doesn't want transfusion unless he really needs it. his Basline Hb is 8-9- likely due to ESRD. will check CBC again in AM ESRD- on PD-anuric- Nephrology is trying to convince him to go for HD- he doesn't really want it- surgery consulted for perma cath but he's not inter ested. unfortunately his overall prognosis is poor given his ESRD, chronic anemia and Atrial fib. disposition- i am awaiting on patient and nephrology to decide on PD vs HD- he's ready for discharge when nephro clears him from their standpoint
[2018-03-20] MEDS: IPRATROPIUM/ALBUTEROL 0.5-2.5 MG/3 ML AMPUL NEB PRN ×2 (09:27→15:53)
[2018-03-20] MEDS: FLUTICASONE/SALMETEROL DISKUS 250-50 MCG/DOSE IH SCH ×2 (09:48→21:39)
[2018-03-20] MEDS: TIOTROPIUM BROMIDE DPI 5 CAP/KIT (18 MCG/CAP) IH SCH (09:48)
[2018-03-20] MEDS: ASPIRIN 81 MG TABLET, CHEWABLE PO SCH (09:49)
[2018-03-20] MEDS: FOLIC ACID 1 MG TABLET PO SCH (09:49)
[2018-03-20] MEDS: CLONAZEPAM 1 MG TABLET PO PRN ×2 (09:49→21:39)
[2018-03-20] MEDS: FERROUS SULFATE 325 MG TABLET PO SCH ×3 (09:49→19:33)
[2018-03-20] MEDS: METOPROLOL TARTRATE 25 MG TABLET PO SCH ×2 (09:50→21:40)
[2018-03-20] MEDS: FAMOTIDINE 20 MG TABLET PO SCH (09:50)
--- NOTE | 2018-03-20 15:06 | PDOC PROGRESS REPORT ---
Subjective Progress Note for:: 03/20/18 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: Patient seen this morning. He looks very debilitated. He admits to the fact that he is very weak. Unable to get up from the chair by himself. He gets some shortness of breath when he exerts too much. He denies any history of fever chills. No complaints of any chest pains. Did review his chart. His peritoneal fluid though cloudy was not indicative of peritonitis. He did get 1 dose of vancomycin and gentamicin. He denies any abdominal pains. He states his redness of his legs are improving. His appetite is fair. No complaints of any nausea vomiting. Labs and medications were reviewed with the patient. Discussions were done with this treating nurse on the floor. Physical Exam Vital Signs: Temp Pulse Resp BP Pulse Ox 98.0 F 130 H 20 93/54 L 94 03/20/18 11:21 03/20/18 14:00 03/20/18 11:21 03/20/18 11:21 03/20/18 11:21 Intake & Output 03/19/18 03/20/18 03/21/18 06:59 06:59 06:59 Intake Total 5110 6490 1500 Output Total 3800 6000 1800 Balance 1310 490 -300 Weight 62.3 kg 62.3 kg 61.4 kg General appearance: PRESENT: no acute distress, disheveled Exam: Looks very debilitated and weak. Respiratory exam: PRESENT: clear to auscultation tata, crackles, decreased breath sounds Cardiovascular exam: PRESENT: +S1, +S2, systolic murmur GI/Abdominal exam: PRESENT: distended, normal bowel sounds, soft. ABSENT: organ omegaly, tenderness Extremities exam: PRESENT: pedal edema Neurological exam: PRESENT: alert, awake, oriented to person, oriented to place Psychiatric exam: PRESENT: anxious Skin exam: PRESENT: erythema. ABSENT: mottled Results Laboratory Results: 03/18/18 14:02 03/20/18 03:56 03/20/18 03/20/18 03:56 03:56 Sodium 139.2 Potassium 5.2 H Chloride 102 Carbon Dioxide 24 Anion Gap 13 BUN 96 H Creatinine 9.98 H Est GFR ( Amer) 6 L Est GFR (Non-Af Amer) 5 L Glucose 107 Calcium 7.1 L Total Bilirubin 0.2 AST 16 L ALT 28 Alkaline Phosphatase 59 Total Protein 4.5 L Albumin 2.1 L Free T4 0.81 Impressions: Chest X-Ray 03/16/18 15:05 IMPRESSION: Cardiomegaly with no shara pulmonary edema. Small right pleural effusion. Assessment & Plan - Diagnosis (1) End-stage renal disease (ESRD) Is this a current diagnosis for this admission?: Yes Plan: Patient with ESRD on peritoneal dialysis who is now becoming quite moribund with extreme difficulty to conduct peritoneal dialysis on his own. His son who lives close by is of minimal help even though he has been helping him connect automated machine at night when he is at home. I do not believe patient is capable of doing process in a aseptic manner. Discussed at length with the patient that he is has to go to rehab [facility] where he would not be able to do peritoneal dialysis. Hence the only choice he has is to do hemodialysis. Discussed with him that we will plan for gentle hemodialysis so that he hopefully will not have the same experience he had in the remote past for the same. Patient is willing to proceed. Discussed with Dr. Kristian Smith for placement of an IJ PermCath. (2) Bilateral lower leg cellulitis Is this a current diagnosis for this admission?: Yes Plan: He looks better. I plan to continue on the vancomycin and gentamicin for the same as he has had a good response to the same. Orders have been placed for that. Discussed with , hospitalist covering. (3) Moderate to severe malnutrition Is this a current diagnosis for this admission?: Yes Plan: This is been a chronic problem that the patient is unable to have addressed it properly. Suggest high protein nutrition. (4) Unable to ambulate Plan: Patient is extremely deconditioned and weak. He is unsafe to himself and his home at the moment. He definitely would need to have rehab for a prolonged period of time. Discussed end-of-life issues and DNR but patient wants to be a full code. (5) Anemia in chronic kidney disease (CKD) Is this a current diagnosis for this admission?: Yes Plan: Adjust erythropoietin. (6) Atrial fibrillation with RVR Is this a current diagnosis for this admission?: Yes Plan: Presently rate controlled. Monitor. (7) COPD (chronic obstructive pulmonary disease) Qualifiers: Emphysema type: unspecified Is this a current diagnosis for this admission?: Yes Plan: Relatively stable. (8) CHF (congestive heart failure) Qualifiers: Qualified Code(s): I50.41 - Acute combined systolic (congestive) and diastolic (congestive) heart failure Plan: Presently compensated. Monitor. (9) Hypomagnesemia Plan: Start replacements.
[2018-03-20] MEDS ORDERED: ONDANSETRON HCL INJ/PF 4 MG/2 ML SDV IV PRN (16:00)
[2018-03-20] MEDS: MAGNESIUM OXIDE 400 MG TABLET PO SCH (19:33)
[2018-03-20] MEDS ORDERED: FERROUS SULFATE 325 MG TABLET PO ONE (19:45)
[2018-03-20] MEDS ORDERED: MAGNESIUM OXIDE 400 MG TABLET PO ONE (19:45)
[2018-03-20] MEDS: CALCIUM CARBONATE 500 MG TAB.CHEW PO SCH (21:39)
[2018-03-20] MEDS: ATORVASTATIN CALCIUM 10 MG TABLET PO SCH (21:40)
[2018-03-20] MEDS: VANCOMYCIN HCL INJ 1000 MG VIAL IPER PRN (22:25)
[2018-03-20] MEDS: GENTAMICIN SULFATE INJ 80 MG/2 ML VIAL IPER PRN (22:25)
[2018-03-21] MEDS: LEVOTHYROXINE SODIUM 0.112 MG TABLET PO SCH (06:22)
[2018-03-21 06:42] LABS: ANION GAP 14 (5-19); BLOOD UREA NITROGEN 105 mg/dL (7-20); CALCIUM 7.4 mg/dL (8.4-10.2); CARBON DIOXIDE 24 mmol/L (22-30); CHLORIDE 100 mmol/L (98-107); GLUCOSE 190 mg/dL (75-110); POTASSIUM 5.8 mmol/L (3.6-5.0); SODIUM 138.4 mmol/L (137-145)
[2018-03-21 07:39] LABS: GENTAMICIN-TROUGH 3.8 ug/mL (<2.0)
[2018-03-21] MEDS ORDERED: NORMAL SALINE 1000 ML 500 ML IV ONE ×2 (08:00→13:46)
[2018-03-21 10:56] LABS: ABSOLUTE BASOPHILS # (AUTO) 0.1 10^3/uL (0.0-0.2); ABSOLUTE EOSINOPHILS # (AUTO) 0.1 10^3/uL (0.0-0.6); ABSOLUTE LYMPHOCYTES (AUTO) 0.7 10^3/uL (0.5-4.7); ABSOLUTE MONOCYTES (AUTO) 0.9 10^3/uL (0.1-1.4); ABSOLUTE NEUT (AUTO) 8.4 10^3/uL (1.7-8.2); BASOPHILS % (AUTO) 0.9 % (0-2); EOSINOPHILS % (AUTO) 0.9 % (0-6); HEMATOCRIT 19.7 % (37.9-51.0); LYMPHOCYTES % (AUTO) 6.8 % (13-45); MEAN CORPUSCULAR HEMOGLOBIN 31.2 pg (27.0-33.4); MEAN CORPUSCULAR HGB CONC 31.9 g/dL (32.0-36.0); MEAN CORPUSCULAR VOLUME 98 fl (80-97); PLATELET COUNT 140 10^3/uL (150-450); RED BLOOD COUNT 2.01 10^6/uL (4.35-5.55); SEGMENTED NEUTROPHILS % (AUTO) 82.4 % (42-78); TOTAL CELLS COUNTED % (AUTO) 100 %; WHITE BLOOD COUNT 10.1 10^3/uL (4.0-10.5)
[2018-03-21 10:58] LABS: HEMOGLOBIN 6.3 g/dL (13.5-17.0)
[2018-03-21] MEDS: MIDODRINE HCL 5 MG TABLET PO SCH ×3 (11:07→18:02)
[2018-03-21] MEDS: CALCIUM ACETATE 667 MG CAPSULE PO SCH ×3 (12:16→18:02)
--- NOTE | 2018-03-21 12:37 | PDOC PROGRESS REPORT ---
Subjective Progress Note for:: 03/21/18 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: Patient seen today. He looks and feels weak. He looks pale. He denies any abdominal pains or GI bleeds. He is rather hypotensive with systolics in the 90s.He was dosed with 500 mL of saline this morning. He is scheduled to have IJ catheter placed this afternoon by Dr. Smith. He gets shortness of breath if he exerts too much. He denies any history of fever or chills. Appetite is rather poor. Labs and medications were reviewed with the patient. It shows potassium high at 5.8. Hemoglobin is dropped to 6.3. Discussions were done with the treating nurse. Physical Exam Vital Signs: Temp Pulse Resp BP Pulse Ox 97.8 F 128 H 20 92/52 L 92 03/21/18 07:08 03/21/18 10:59 03/21/18 07:08 03/21/18 10:59 03/21/18 03:19 Intake & Output 03/20/18 03/21/18 03/22/18 06:59 06:59 06:59 Intake Total 6490 4500 Output Total 6000 4300 Balance 490 200 Weight 62.3 kg 61.3 kg General appearance: PRESENT: disheveled Exam: Looks weak and tired. Sitting on the recliner. No acute issues. Respiratory exam: PRESENT: clear to auscultation tata, decreased breath sounds. ABSENT: crackles Cardiovascular exam: PRESENT: +S1, +S2, systolic murmur GI/Abdominal exam: PRESENT: distended, normal bowel sounds, soft. ABSENT: organomegaly, tenderness Extremities exam: ABSENT: pedal edema Neurological exam: PRESENT: alert, awake, oriented to person, oriented to place Psychiatric exam: PRESENT: depressed Skin exam: PRESENT: dry. ABSENT: erythema, mottled Results Laboratory Results: 03/21/18 05:55 03/21/18 05:55 03/21/18 03/21/18 05:55 05:55 WBC 10.1 RBC 2.01 L Hgb 6.3 L D Hct 19.7 L MCV 98 H MCH 31.2 MCHC 31.9 L RDW 17.0 H Plt Count 140 L Seg Neutrophils % 82.4 H Lymphocytes % 6.8 L Monocytes % 9.0 Eosinophils % 0.9 Basophils % 0.9 Absolute Neutrophils 8.4 H Absolute Lymphocytes 0.7 Absolute Monocytes 0.9 Absolute Eosinophils 0.1 Absolute Basophils 0.1 Sodium 138.4 Potassium 5.8 H Chloride 100 Carbon Dioxide 24 Anion Gap 14 BUN 105 H Creatinine 10.18 H Est GFR ( Amer) 6 L Est GFR (Non-Af Amer) 5 L Glucose 190 H Calcium 7.4 L Magnesium 2.0 03/17/18 05:25 Peritoneal Dialysis Gram Stain - Final 03/17/18 05:25 Peritoneal Dialysis Body Fluid Culture - Final NO AEROBIC OR ANAEROBIC ORGANISMS RECOVERED Impressions: Chest X-Ray 03/16/18 15:05 IMPRESSION: Cardiomegaly with no shara pulmonary edema. Small right pleural effusion. Assessment & Plan - Diagnosis (1) End-stage renal disease (ESRD) Is this a current diagnosis for this admission?: Yes Plan: Patient with ESRD on peritoneal dialysis who is now becoming quite moribund with extreme difficulty to conduct peritoneal dialysis on his own. Discussed with him that we will plan for gentle hemodialysis. Patient is willing to proceed. Given some current issues including hypertension, hyperkalemia and acute on chronic anemia the planned elective procedure of IJ PermCath by Dr. Kristian Smith has been postponed for tomorow as per discussions done with his treating RN.Meanwhile will address his hyperkalemia with fluids and Kayexalate. I have ordered to type and crossmatch for 2 units for transfusion.Will hold off his Vanc and gentamicin given his gent trough today at 3.8. He does not complain of any signs of ototoxicity.His cellulitis has markedly improved. Currently patient is on the dry side which is also feeding his hypotension and agree with fluid resuscitation. Discussed of PD fluid regimen with the treating nurse.Overall the patient looks rather moribund and his prognosis for the near short-term and long-term is rather grave. (2) Bilateral lower leg cellulitis Is this a current diagnosis for this admission?: Yes Plan: Markedly improved on the\gent. I would discontinue both of these at the moment. (3) Moderate to severe malnutrition Is this a current diagnosis for this admission?: Yes Plan: This is been a chronic problem that the patient is unable to have addressed it properly. Suggest high protein nutrition. (4) Unable to ambulate Plan: Patient is extremely deconditioned and weak. He is unsafe to himself and his home at the moment. He definitely would need to have rehab for a prolonged period of time. Discussed end-of-life issues and DNR but patient wants to be a full code. (5) Anemia in chronic kidney disease (CKD) Is this a current diagnosis for this admission?: Yes Plan: Currently has acute anemia. No evidences or complaints of GI bleed.Patient being type and crossmatch. Will order erythropoietin as well. Get iron studies day after tomorrow.. (6) Atrial fibrillation with RVR Is this a current diagnosis for this admission?: Yes Plan: Presently rate controlled. Monitor. (7) COPD (chronic obstructive pulmonary disease) Qualifiers: Emphysema type: unspecified Is this a current diagnosis for this admission?: Yes Plan: Relatively stable. (8) CHF (congestive heart failure) Qualifiers: Qualified Code(s): I50.41 - Acute combined systolic (congestive) and diastolic (congestive) heart failure Plan: Presently compensated. Monitor. (9) Hypomagnesemia Plan: On replacements. (10) Hyperkalemia Plan: Being addressed as mentioned earlier. Will monitor. (11) Hypotension Plan: Multifactorial. Patient clinically dry. Agree with fluid bolus. No evidence of sepsis. Start Midodrin as we have done this in the past for this gentleman. Titrate PD fluids accordingly and have discussed that with the nurse. He is currently only on 1.5% fluid anyway.
[2018-03-21] MEDS: FLUTICASONE/SALMETEROL DISKUS 250-50 MCG/DOSE IH SCH ×2 (12:51→21:41)
[2018-03-21] MEDS: FERROUS SULFATE 325 MG TABLET PO SCH ×3 (12:52→18:03)
[2018-03-21] MEDS: FOLIC ACID 1 MG TABLET PO SCH (12:52)
[2018-03-21] MEDS: TIOTROPIUM BROMIDE DPI 5 CAP/KIT (18 MCG/CAP) IH SCH (12:52)
[2018-03-21] MEDS: FAMOTIDINE 20 MG TABLET PO SCH (12:52)
[2018-03-21] MEDS: MAGNESIUM OXIDE 400 MG TABLET PO SCH ×2 (12:52→18:02)
[2018-03-21] MEDS: ASPIRIN 81 MG TABLET, CHEWABLE PO SCH (12:53)
[2018-03-21] MEDS ORDERED: OXYCODONE-ACETAMINOPHEN 5-325 MG TABLET PO ONE (13:30)
[2018-03-21] MEDS ORDERED: DIAZEPAM 5 MG TABLET PO ONE (13:30)
--- NOTE | 2018-03-21 13:56 | PDOC PROGRESS REPORT ---
Subjective Progress Note for:: 03/21/18 Subjective:: Saw patient this morning and he was sitting up on the chair. He was getting ready to eat his breakfast. He has no acute complaints to me. He is tells me that he is hurting all over which she told me yesterday. Tell me his pain is everywhere and there is no focal area of pain. States he always has pain. States that the medication that I gave him the oxycodone 10 mg it does help but he's still in pain. 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: A.FIB WITH RVR,HYPOCALCEMIA, CELLULITIS Physical Exam Vital Signs: Temp Pulse Resp BP Pulse Ox 97.9 F 121 H 20 92/72 L 92 03/21/18 11:16 03/21/18 12:38 03/21/18 12:38 03/21/18 11:16 03/21/18 11:16 Intake & Output 03/20/18 03/21/18 03/22/18 06:59 06:59 06:59 Intake Total 6490 4500 Output Total 6000 4300 Balance 490 200 Weight 137 lb 5.568 oz 135 lb 2.294 oz General appearance: PRESENT: no acute distress, other - Appears older than stated age and frail appearing Head exam: PRESENT: atraumatic, normocephalic Eye exam: PRESENT: EOMI. ABSENT: conjunctival injection, scleral icterus Ear exam: PRESENT: normal external ear exam Mouth exam: PRESENT: moist, tongue midline Neck exam: ABSENT: tracheal deviation Respiratory exam: PRESENT: clear to auscultation tata, symmetrical Cardiovascular exam: PRESENT: +S1, +S2 Pulses: PRESENT: +1 pedal pulses bilateral GI/Abdominal exam: PRESENT: normal bowel sounds, soft. ABSENT: tenderness Extremities exam: ABSENT: pedal edema Neurological exam: PRESENT: alert, awake, oriented to person, oriented to place, oriented to time, oriented to situation, CN II-XII grossly intact Skin exam: PRESENT: dry, erythema - Bilateral lower extremity erythema- consistent with venous insufficiency, warm Results Laboratory Results: 03/21/18 05:55 03/21/18 05:55 03/21/18 03/21/18 03/21/18 05:55 05:55 11:46 WBC 10.1 RBC 2.01 L Hgb 6.3 L D Hct 19.7 L MCV 98 H MCH 31.2 MCHC 31.9 L RDW 17.0 H Plt Count 140 L Seg Neutrophils % 82.4 H Lymphocytes % 6.8 L Monocytes % 9.0 Eosinophils % 0.9 Basophils % 0.9 Absolute Neutrophils 8.4 H Absolute Lymphocytes 0.7 Absolute Monocytes 0.9 Absolute Eosinophils 0.1 Absolute Basophils 0.1 Sodium 138.4 Potassium 5.8 H Chloride 100 Carbon Dioxide 24 Anion Gap 14 BUN 105 H Creatinine 10.18 H Est GFR ( Amer) 6 L Est GFR (Non-Af Amer) 5 L Glucose 190 H Calcium 7.4 L Magnesium 2.0 Blood Type A POSITIVE Antibody Screen NEGATIVE 03/17/18 05:25 Peritoneal Dialysis Gram Stain - Final 03/17/18 05:25 Peritoneal Dialysis Body Fluid Culture - Final NO AEROBIC OR ANAEROBIC ORGANISMS RECOVERED Impressions: Chest X-Ray 03/16/18 15:05 IMPRESSION: Cardiomegaly with no shara pulmonary edema. Small right pleural effusion. Assessment & Plan - Diagnosis (1) Atrial fibrillation with RVR Is this a current diagnosis for this admission?: Yes (2) Bilateral lower leg cellulitis Is this a current diagnosis for this admission?: Yes (3) COPD (chronic obstructive pulmonary disease) Qualifiers: Emphysema type: unspecified Is this a current diagnosis for this admission?: Yes (4) ESRD (end stage renal disease) Is this a current diagnosis for this admission?: Yes (5) Severe hypocalcemia Is this a current diagnosis for this admission?: Yes (6) Swelling of left hand Is this a current diagnosis for this admission?: Yes - Plan Summary Plan Summary: severe hypocalcemia-continues to improve. 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 He is on metoprolol 12.5mg BID. may need labetalol IV PRN if he goes into RVR again- his BP is controlled- i do not see any anticoagulation on his home list- only ASA- will continue that for now. left hand swelling- better today- will monitor for now- monitor for worsening symptoms or infection. afebrile now. cellulitis-likely resolved-nephrology is giving him vanco- will monitor his progress. i am not so sure it this is cellulitis- seem to be venous insuffic iency- he has LE wound but doesn't look to be infected. she has his splotchy erythema of the LE and chest- not sure what that is about. will monitor for now. acute on chronic anemia-today's hemoglobin has dropped to less than 7 but I am not so sure if the lab is correct so I have ordered a stat CBC to compare. This did happen to him the other day and we repeated the lab and it was normal. His baseline is most likely between 8 and 9 secondary to his end-stage renal disease. Patient is reluctant for transfusion as he told me last time so we will check his lab again and consider transfusion or or not. ESRD- on [id number] is planning on getting a permacath as patient has agreed although he keeps telling me he is still not sure. He doesn't really want hemodialysis. unfortunately his overall prognosis is poor given his ESRD, chronic anemia and Atrial fib. disposition- i am awaiting on patient and nephrology to decide on PD vs HD- he's ready for discharge when nephro clears him from their standpoint
[2018-03-21 14:16] LABS: ABSOLUTE BASOPHILS # (AUTO) 0.1 10^3/uL (0.0-0.2); ABSOLUTE EOSINOPHILS # (AUTO) 0.1 10^3/uL (0.0-0.6); ABSOLUTE LYMPHOCYTES (AUTO) 0.7 10^3/uL (0.5-4.7); ABSOLUTE MONOCYTES (AUTO) 0.8 10^3/uL (0.1-1.4); ABSOLUTE NEUT (AUTO) 8.9 10^3/uL (1.7-8.2); BASOPHILS % (AUTO) 0.8 % (0-2); EOSINOPHILS % (AUTO) 0.5 % (0-6); HEMATOCRIT 18.3 % (37.9-51.0); LYMPHOCYTES % (AUTO) 6.5 % (13-45); MEAN CORPUSCULAR HEMOGLOBIN 30.6 pg (27.0-33.4); MEAN CORPUSCULAR HGB CONC 31.1 g/dL (32.0-36.0); MEAN CORPUSCULAR VOLUME 99 fl (80-97); MONOCYTES % (AUTO) 7.3 % (3-13); PLATELET COUNT 150 10^3/uL (150-450); RED BLOOD COUNT 1.86 10^6/uL (4.35-5.55); RED CELL DISTRIBUTION WIDTH 16.8 % (11.5-14.0); SEGMENTED NEUTROPHILS % (AUTO) 84.9 % (42-78); TOTAL CELLS COUNTED % (AUTO) 100 %; WHITE BLOOD COUNT 10.5 10^3/uL (4.0-10.5)
[2018-03-21 14:22] LABS: HEMOGLOBIN 5.7 g/dL (13.5-17.0)
[2018-03-21] MEDS: OXYCODONE-ACETAMINOPHEN 5-325 MG TABLET PO PRN ×2 (15:34→21:41)
--- NOTE | 2018-03-21 17:23 | PDOC CONSULTATION ---
Consultation Consult Date: 03/21/18 Consult reason:: chronic anemia, drop in HGB History of Present Illness Admission Date/PCP: 03/16/18 16:48 Basil ROMERO MD History of Present Illness: JULIANNA MCKEON JR is a 72 year old male patient has been admitted for several days does have chronic anemia due to chronic renal disease patient had a drop in Hgb following IV bolus administration patient had a GI work up in the past in [place],was told that everything was normal patient has A fib and has been maintained on ASA only he is receiving a blood transfusion presently patient says no bleeding noted spoke with RN , no bleeding is noted denies any melena or abdominal pain will schedule him for EGD and colonoscopy to rule out shara GI bleeding prep orders have been written Past Medical History Cardiac Medical History: Reports: Atrial Fibrillation, Coronary Artery Disease, Hypertension Denies: Myocardial Infarction Pulmonary Medical History: Reports: Chronic Obstructive Pulmonary Disease (COPD) Denies: Asthma Neurological Medical History: Denies: Seizures Renal/ Medical History: Reports: End Stage Renal Disease GI Medical History: Reports: Hiatal Hernia Denies: Hepatitis Musculoskeltal Medical History: Reports: Arthritis Psychiatric Medical History: Denies: Depression Hematology: Reports: Anemia Denies: Sickle Cell Disease Past Surgical History Past Surgical History: Reports: Cardiac Catheterization - CABG Denies: Pacemaker Social History Lives with: Alone Smoking Status: Former Smoker Frequency of Alcohol Use: None Hx Recreational Drug Use: No Drugs: None, Marijuana Hx Prescription Drug Abuse: No - Advance Directive Resuscitation Status: Full Code Family History Family History: Hypertension Parental Family History Reviewed: Yes Children Family History Reviewed: Unknown Sibling(s) Family History Reviewed.: Unknown Medication/Allergy Home Medications: Aspirin [Aspirin 81 mg Chewable Tablet] 81 mg PO DAILY 02/16/18 Atorvastatin Calcium [Lipitor 10 mg Tablet] 10 mg PO QHS 02/16/18 Calcium Acetate [Phoslo 667 mg Capsule] 667 mg PO MEALS 02/16/18 Fluticasone/Salmeterol [Advair HFA 115-21 mcg Inhaler] 2 puff IH Q12 02/16/18 Folic Acid [Folvite 1 mg Tablet] 1 mg PO DAILY 02/16/18 Levothyroxine Sodium 112 mcg PO Q6AM 02/16/18 Megestrol Acetate 20 ml PO DAILY 02/16/18 Tiotropium Risingsun [Spiriva Respimat] 1 puff IH Q12 02/16/18 Vitamin B Complex 1 tab PO DAILY 02/16/18 Zolpidem Tartrate [Ambien] 10 mg PO HSP PRN 02/16/18 Ferrous Sulfate [Iron] 325 mg PO TID 02/17/18 Lactulose 10 ml PO BID PRN 02/17/18 Melatonin/Pyridoxine HCl (B6) [Melatonin 5 mg Tablet] 1 each PO HSP PRN 02/17/18 Clonazepam [Klonopin 1 mg Tablet] 0.5 mg PO Q12HP PRN tablet 02/23/18 Metoprolol Succinate [Toprol Xl 25 mg Tab.sr] 25 mg PO DAILY #30 tab.sr.24h 02/23/18 Trazodone HCl [Desyrel 50 mg Tablet] 50 mg PO HSP PRN #30 tablet 02/23/18 Allergies/Adverse Reactions: Sulfa (Sulfonamide Antibiotics) Allergy (Verified 02/16/18 18:16) Review of Systems Constitutional: ABSENT: fever(s), headache(s), night sweats, weakness Eyes: ABSENT: visual disturbances Ears: ABSENT: hearing changes Nose, Mouth, and Throat: ABSENT: mouth pain, sore throat Cardiovascular: ABSENT: edema, orthropnea, palpitations Respiratory: ABSENT: dyspnea, hemoptysis Gastrointestinal: ABSENT: melena, nausea, vomiting Genitourinary: ABSENT: dysuria, hematuria Musculoskeletal: ABSENT: deformity Integumentary: ABSENT: lesions Neurological: ABSENT: syncope, tingling, tremor(s) Endocrine: ABSENT: polydipsia, polyphagia, polyuria Hematologic/Lymphatic: ABSENT: easy bruising Physical Exam Vital Signs: Temp Pulse Resp BP Pulse Ox 97.8 F 122 H 20 108/51 L 92 03/21/18 17:10 03/21/18 17:10 03/21/18 17:10 03/21/18 17:10 03/21/18 17:10 Intake & Output 03/20/18 03/21/18 03/22/18 06:59 06:59 06:59 Intake Total 6490 4500 2950 Output Total 6000 4300 1500 Balance 929 605 7657 Weight 62.3 kg 61.3 kg 62.7 kg General appearance: PRESENT: no acute distress, thin Head exam: PRESENT: atraumatic, normocephalic Eye exam: PRESENT: EOMI, PERRLA. ABSENT: nystagmus, periorbital swelling, scleral icterus Mouth exam: PRESENT: moist, neck supple Throat exam: ABSENT: tonsillar exudate, tonsillogmegaly Respiratory exam: PRESENT: unlabored. ABSENT: symmetrical, tachypnea, wheezes Cardiovascular exam: PRESENT: irregular rhythm, RRR, +S2 GI/Abdominal exam: PRESENT: soft. ABSENT: rebound, rigid, tenderness Extremities exam: ABSENT: joint swelling Neurological exam: PRESENT: oriented to time, oriented to situation, CN II-XII grossly intact Focused psych exam: ABSENT: restlessness Skin exam: PRESENT: normal color. ABSENT: mottled, pallor, urticaria, vesicles Results Laboratory Results: 03/21/18 11:46 03/21/18 05:55 03/21/18 03/21/18 03/21/18 05:55 05:55 11:46 WBC 10.1 RBC 2.01 L Hgb 6.3 L D Hct 19.7 L MCV 98 H MCH 31.2 MCHC 31.9 L RDW 17.0 H Plt Count 140 L Seg Neutrophils % 82.4 H Lymphocytes % 6.8 L Monocytes % 9.0 Eosinophils % 0.9 Basophils % 0.9 Absolute Neutrophils 8.4 H Absolute Lymphocytes 0.7 Absolute Monocytes 0.9 Absolute Eosinophils 0.1 Absolute Basophils 0.1 Sodium 138.4 Potassium 5.8 H Chloride 100 Carbon Dioxide 24 Anion Gap 14 BUN 105 H Creatinine 10.18 H Est GFR ( Amer) 6 L Est GFR (Non-Af Amer) 5 L Glucose 190 H Calcium 7.4 L Magnesium 2.0 Blood Type A POSITIVE Antibody Screen NEGATIVE 03/21/18 11:46 WBC 10.5 RBC 1.86 L Hgb 5.7 L Hct 18.3 L MCV 99 H MCH 30.6 MCHC 31.1 L RDW 16.8 H Plt Count 150 Seg Neutrophils % 84.9 H Lymphocytes % 6.5 L Monocytes % 7.3 Eosinophils % 0.5 Basophils % 0.8 Absolute Neutrophils 8.9 H Absolute Lymphocytes 0.7 Absolute Monocytes 0.8 Absolute Eosinophils 0.1 Absolute Basophils 0.1 Sodium Potassium Chloride Carbon Dioxide Anion Gap BUN Creatinine Est GFR ( Amer) Est GFR (Non-Af Amer) Glucose Calcium Magnesium Blood Type Antibody Screen 03/16/18 16:28 Blood Blood Culture - Final NO GROWTH IN 5 DAYS 03/16/18 14:45 Blood Blood Culture - Final NO GROWTH IN 5 DAYS 03/17/18 05:25 Peritoneal Dialysis Gram Stain - Final 03/17/18 05:25 Peritoneal Dialysis Body Fluid Culture - Final NO AEROBIC OR ANAEROBIC ORGANISMS RECOVERED Impressions: Chest X-Ray 03/16/18 15:05 IMPRESSION: Cardiomegaly with no shara pulmonary edema. Small right pleural effusion. Assessment & Plan - Diagnosis (1) Anemia Qualifiers: Anemia type: due to chronic kidney disease Qualified Code(s): D64.9 - Anemia, unspecified Plan: patient will need GI work up to exclude a possible GI bleed patient says he is not having overt symptoms however since he has dropped his Hgb, will exclude patient willing to proceed Risks, benefits and alternatives are discussed with the patient in detail further recommendations to follow he could have hemodilution to explain his findings, further clarification will be needed have sign to have [facility] release records of his previous GI work up - Time Time Spent: 50 to 70 Minutes
[2018-03-21] MEDS: METOPROLOL TARTRATE 25 MG TABLET PO SCH ×2 (17:54→21:41)
[2018-03-21] MEDS ORDERED: GLUCAGON,HUMAN RECOMB 1 MG INJ SUBCUT PRN (19:20)
[2018-03-21] MEDS ORDERED: DEXTROSE 40% GEL 15 GM TUBE PO PRN ×2 (19:20)
[2018-03-21] MEDS ORDERED: DEXTROSE 50%-WATER 25 GM/50 ML DISP.SYRIN IV PRN ×2 (19:20)
[2018-03-21] MEDS ORDERED: PEG 3350/NA SULF,BICARB,CL/KCL 4000 ML PO ONE (19:30)
[2018-03-21 21:18] LABS: ABSOLUTE BASOPHILS # (AUTO) 0.1 10^3/uL (0.0-0.2); ABSOLUTE EOSINOPHILS # (AUTO) 0.1 10^3/uL (0.0-0.6); ABSOLUTE LYMPHOCYTES (AUTO) 0.6 10^3/uL (0.5-4.7); ABSOLUTE MONOCYTES (AUTO) 0.8 10^3/uL (0.1-1.4); BASOPHILS % (AUTO) 0.7 % (0-2); EOSINOPHILS % (AUTO) 0.5 % (0-6); HEMATOCRIT 24.7 % (37.9-51.0); LYMPHOCYTES % (AUTO) 5.3 % (13-45); MEAN CORPUSCULAR HEMOGLOBIN 30.8 pg (27.0-33.4); MEAN CORPUSCULAR HGB CONC 32.9 g/dL (32.0-36.0); MONOCYTES % (AUTO) 7.2 % (3-13); PLATELET COUNT 145 10^3/uL (150-450); RED BLOOD COUNT 2.64 10^6/uL (4.35-5.55); RED CELL DISTRIBUTION WIDTH 16.9 % (11.5-14.0); SEGMENTED NEUTROPHILS % (AUTO) 86.3 % (42-78); TOTAL CELLS COUNTED % (AUTO) 100 %; WHITE BLOOD COUNT 11.6 10^3/uL (4.0-10.5)
[2018-03-21 21:21] LABS: HEMOGLOBIN 8.1 g/dL (13.5-17.0); MEAN CORPUSCULAR VOLUME 94 fl (80-97)
[2018-03-21] MEDS: CALCIUM CARBONATE 500 MG TAB.CHEW PO SCH (21:41)
[2018-03-21] MEDS: ATORVASTATIN CALCIUM 10 MG TABLET PO SCH (21:41)
[2018-03-21] MEDS: CLONAZEPAM 1 MG TABLET PO PRN (21:42)
[2018-03-22 05:35] LABS: ABSOLUTE RETICS # 0.085 10^6/uL (0.028-0.122); HEMATOCRIT 23.7 % (37.9-51.0); MEAN CORPUSCULAR HEMOGLOBIN 31.5 pg (27.0-33.4); MEAN CORPUSCULAR HGB CONC 33.8 g/dL (32.0-36.0); MEAN CORPUSCULAR VOLUME 93 fl (80-97); PLATELET COUNT 140 10^3/uL (150-450); RED BLOOD COUNT 2.55 10^6/uL (4.35-5.55); RED CELL DISTRIBUTION WIDTH 17.1 % (11.5-14.0); RETICULOCYTE COUNT (AUTO) 3.32 % (0.66-2.85); WHITE BLOOD COUNT 10.7 10^3/uL (4.0-10.5)
[2018-03-22] MEDS: LEVOTHYROXINE SODIUM 0.112 MG TABLET PO SCH (05:42)
[2018-03-22] MEDS: OXYCODONE-ACETAMINOPHEN 5-325 MG TABLET PO PRN ×3 (05:42→20:49)
[2018-03-22 05:52] LABS: ANION GAP 14 (5-19); BLOOD UREA NITROGEN 106 mg/dL (7-20); CALCIUM 7.2 mg/dL (8.4-10.2); CARBON DIOXIDE 24 mmol/L (22-30); CHLORIDE 101 mmol/L (98-107); GLUCOSE 155 mg/dL (75-110); IRON(TIBC) 56.3 ug/dL (49-181); POTASSIUM 5.9 mmol/L (3.6-5.0); SODIUM 138.8 mmol/L (137-145)
[2018-03-22 07:07] LABS: FOLATE > 20.00 ng/mL (>2.76)
[2018-03-22] MEDS ORDERED: SODIUM POLYSTYRENE SULFONATE 15 GM/60 ML PO ONE (09:00)
[2018-03-22] MEDS ORDERED: CALCIUM GLUCONATE 2,222 MG in DEXTROSE 5%-WATER 100 ML IV ONE (09:30)
--- NOTE | 2018-03-22 10:53 | PDOC PROGRESS REPORT ---
Subjective Progress Note for:: 03/22/18 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: Patient seen this morning. He is laying in bed sleeping but arousable. He looks very weak. He has had a precipitous drop in his hemoglobin into the 5+ range. He has been consulted by GI and is in the process of having a upper GI endoscopy and and colonoscopy as well. Patient and nurse denies any obvious evidences of hematochezia or melena or hematemesis. He denies any history of abdominal pains, chest pains or shortness of breath as long as he is not moving. He denies any history of fever or chills. Today he says he does not want to have the IJ catheter for his hemodialysis conversion. He blames it on his family for his change of mind !!. He knows that doing PD will be difficult at home and it will not happen if he is transferred to a mcc which is what he needs to do given his severe deconditioning. I went on to explain at length but patient is very adamant that he does not want to have hemodialysis through IJ catheter. Labs and medications were reviewed with the patient. Discussions were done with this treating nurse. Physical Exam Vital Signs: Temp Pulse Resp BP Pulse Ox 97.7 F 118 H 20 113/61 92 03/22/18 07:04 03/22/18 08:19 03/22/18 07:04 03/22/18 08:19 03/22/18 07:04 Intake & Output 03/21/18 03/22/18 03/23/18 06:59 06:59 06:59 Intake Total 4500 6400 1500 Output Total 4300 4500 1600 Balance 200 1900 -100 Weight 61.3 kg 60.3 kg 61.5 kg General appearance: PRESENT: no acute distress Respiratory exam: PRESENT: clear to auscultation tata, crackles, decreased breath sounds Cardiovascular exam: PRESENT: +S1, +S2, systolic murmur GI/Abdominal exam: PRESENT: distended, normal bowel sounds, soft. ABSENT: or ganomegaly, tenderness Extremities exam: PRESENT: pedal edema Neurological exam: PRESENT: awake, oriented to person, oriented to place Psychiatric exam: PRESENT: depressed Skin exam: PRESENT: mottled. ABSENT: erythema, rash Results Laboratory Results: 03/22/18 04:33 03/22/18 04:33 03/21/18 03/21/1803/21/19 05:55 11:46 11:46 WBC 10.1 10.5 RBC 2.01 L 1.86 L Hgb 6.3 L D 5.7 L Hct 19.7 L 18.3 L MCV 98 H 99 H MCH 31.2 30.6 MCHC 31.9 L 31.1 L RDW 17.0 H 16.8 H Plt Count 140 L 150 Seg Neutrophils % 82.4 H 84.9 H Lymphocytes % 6.8 L 6.5 L Monocytes % 9.0 7.3 Eosinophils % 0.9 0.5 Basophils % 0.9 0.8 Absolute Neutrophils 8.4 H 8.9 H Absolute Lymphocytes 0.7 0.7 Absolute Monocytes 0.9 0.8 Absolute Eosinophils 0.1 0.1 Absolute Basophils 0.1 0.1 Retic Count (auto) Absolute Retic Sodium Potassium Chloride Carbon Dioxide Anion Gap BUN Creatinine Est GFR ( Amer) Est GFR (Non-Af Amer) Glucose Calcium Iron TIBC % Saturation Ferritin Vitamin B12 Folate Stool Occult Blood Blood Type A POSITIVE Antibody Screen NEGATIVE 03/21/18 03/21/18 03/22/18 18:56 21:08 04:33 WBC 11.6 H RBC 2.64 L Hgb 8.1 L D Hct 24.7 L MCV 94 D MCH 30.8 MCHC 32.9 RDW 16.9 H Plt Count 145 L Seg Neutrophils % 86.3 H Lymphocytes % 5.3 L Monocytes % 7.2 Eosinophils % 0.5 Basophils % 0.7 Absolute Neutrophils 10.0 H Absolute Lymphocytes 0.6 Absolute Monocytes 0.8 Absolute Eosinophils 0.1 Absolute Basophils 0.1 Retic Count (auto) Absolute Retic Sodium 138.8 Potassium 5.9 H Chloride 101 Carbon Dioxide 24 Anion Gap 14 BUN 106 H Creatinine 9.50 H Est GFR ( Amer) 7 L Est GFR (Non-Af Amer) 5 L Glucose 155 H Calcium 7.2 L Iron 56.3 TIBC 173 L % Saturation 33 Ferritin 637.00 H Vitamin B12 445.0 Folate > 20.00 Stool Occult Blood POSITIVE Blood Type Antibody Screen 03/22/18 04:33 WBC 10.7 H RBC 2.55 L Hgb 8.0 L Hct 23.7 L MCV 93 MCH 31.5 MCHC 33.8 RDW 17.1 H Plt Count 140 L Seg Neutrophils % Lymphocytes % Monocytes % Eosinophils % Basophils % Absolute Neutrophils Absolute Lymphocytes Absolute Monocytes Absolute Eosinophils Absolute Basophils Retic Count (auto) 3.32 H Absolute Retic 0.085 Sodium Potassium Chloride Carbon Dioxide Anion Gap BUN Creatinine Est GFR ( Amer) Est GFR (Non-Af Amer) Glucose Calcium Iron TIBC % Saturation Ferritin Vitamin B12 Folate Stool Occult Blood Blood Type Antibody Screen 03/16/18 16:28 Blood Blood Culture - Final NO GROWTH IN 5 DAYS 03/16/18 14:45 Blood Blood Culture - Final NO GROWTH IN 5 DAYS 03/17/18 05:25 Peritoneal Dialysis Gram Stain - Final 03/17/18 05:25 Peritoneal Dialysis Body Fluid Culture - Final NO AEROBIC OR ANAEROBIC ORGANISMS RECOVERED Impressions: Chest X-Ray 03/16/18 15:05 IMPRESSION: Cardiomegaly with no shara pulmonary edema. Small right pleural effusion. Assessment & Plan - Diagnosis (1) End-stage renal disease (ESRD) Is this a current diagnosis for this admission?: Yes Plan: Patient with ESRD on peritoneal dialysis who is now becoming quite moribund with extreme difficulty to conduct peritoneal dialysis on his own. He had consented to do hemodialysis conversion yesterday when I talked at length and was ready to have an IJ catheter placed today for which he had time allotted in the OR. However he has changes mind today for hemodialysis conversion for whatever r easons that I am unable to fathom. This makes it very difficult to send him to a mcc obviously given the fact that they will not be able to do peritoneal dialysis over that. That means he will had to go back home where he is going to be extremely difficult for him and his son who lives next door given the severe level of deconditioning and weakness that he has. Besides that he has had a drop in his hemoglobin and was transfused and presently stable. Is being worked up by GI. In the meanwhile continue on peritoneal dialysis. Potassium was high for which we will give him Veltassa followed by vigorous PD. Discussed with the treating nurse.Overall the patient looks rather moribund and his prognosis for the near short-term and long-term is rather grave. (2) Hypotension Plan: Multifactorial. Patient clinically dry. Started Midodrin as we have done this in the past for this gentleman. Titrate PD fluids accordingly and have discussed that with the nurse. He is currently only on 1.5% fluid anyway. (3) Bilateral lower leg cellulitis Is this a current diagnosis for this admission?: Yes Plan: Markedly improved. (4) Moderate to severe malnutrition Is this a current diagnosis for this admission?: Yes Plan: This is been a chronic problem that the patient is unable to have addressed it properly. Suggest high protein nutrition. (5) Unable to ambulate Plan: Patient is extremely deconditioned and weak. He is unsafe to himself and his home at the moment. He definitely would need to have rehab for a prolonged period of time. Discussed end-of-life issues and DNR but patient wants to be a full code. (6) Anemia in chronic kidney disease (CKD) Is this a current diagnosis for this admission?: Yes Plan: Currently has acute anemia. Status post transfusion. He is being worked up by GI. Continue on erythropoietin. (7) Atrial fibrillation with RVR Is this a current diagnosis for this admission?: Yes Plan: Presently rate controlled. Monitor. (8) COPD (chronic obstructive pulmonary disease) Qualifiers: Emphysema type: unspecified Is this a current diagnosis for this admission?: Yes Plan: Relatively stable. (9) CHF (congestive heart failure) Qualifiers: Qualified Code(s): I50.41 - Acute combined systolic (congestive) and diastolic (congestive) heart failure Plan: Presently compensated. Monitor. (10) Hypomagnesemia Plan: On replacements. (11) Hyperkalemia Plan: Being addressed as mentioned earlier. Treat with Veltassa. Will monitor.
[2018-03-22] MEDS ORDERED: PATIROMER 8.4 GM SUSP PACKET PO ONE (11:30)
[2018-03-22] MEDS ORDERED: PROPOFOL INJ 200 MG/20 ML VIAL IV ONE ×2 (11:49→12:06)
[2018-03-22] MEDS ORDERED: LIDOCAINE 2% INJ-PF (20 MG/ML) 10 ML AMPUL ONE (12:06)
[2018-03-22] MEDS: CALCIUM ACETATE 667 MG CAPSULE PO SCH ×3 (13:50→17:41)
[2018-03-22] MEDS: MIDODRINE HCL 5 MG TABLET PO SCH ×3 (13:51→17:41)
[2018-03-22] MEDS ORDERED: EPOETIN ALFA INJ 20000 UNIT/1 ML VIAL (RENAL) SUBCUT ONE (14:00)
[2018-03-22] MEDS: FAMOTIDINE 20 MG TABLET PO SCH (14:04)
[2018-03-22] MEDS: METOPROLOL TARTRATE 25 MG TABLET PO SCH ×2 (14:04→22:52)
[2018-03-22] MEDS: FLUTICASONE/SALMETEROL DISKUS 250-50 MCG/DOSE IH SCH ×2 (14:04→22:52)
[2018-03-22] MEDS: FOLIC ACID 1 MG TABLET PO SCH (14:04)
[2018-03-22] MEDS: MAGNESIUM OXIDE 400 MG TABLET PO SCH ×2 (14:04→17:41)
[2018-03-22] MEDS: ASPIRIN 81 MG TABLET, CHEWABLE PO SCH (14:04)
[2018-03-22] MEDS: FERROUS SULFATE 325 MG TABLET PO SCH ×3 (14:06→17:41)
[2018-03-22] MEDS: TIOTROPIUM BROMIDE DPI 5 CAP/KIT (18 MCG/CAP) IH SCH (14:08)
--- NOTE | 2018-03-22 17:16 | Operative Report ---
Operative Report DATE OF SURGERY: 03/22/18 Operative Report: The risks benefits and alternatives of the procedure explained to the patient in detail and informed consent is obtained .A GIF Olympus video scope was inserted into the patient's mouth and hypopharynx, the esophagus is identified intubated and insufflated ,the scope was then advanced through the esophagus stomach and duodenum, retroflexion maneuver is done, the esophagus stomach and first and second portions of the duodenum examined. Patient had also been scheduled for colonoscopy but did not complete the prep. The colonoscopy is deferred due to increased risk of perforation. PREOPERATIVE DIAGNOSIS: GI bleeding, chronic anemia POSTOPERATIVE DIAGNOSIS: Gastritis status post biopsy rule out Helicobacter pylori. Esophagitis versus Alvarez's status post biopsy. No active bleeding lesion noted. No AVMs. No esophageal varices OPERATION: EGD with biopsy SURGEON: ERASMO LEMON ANESTHESIA: LMAC TISSUE REMOVED OR ALTERED: As noted above. COMPLICATIONS: None. ESTIMATED BLOOD LOSS: None. INTRAOPERATIVE FINDINGS: As noted above. PROCEDURE: Patient tolerated the procedure well. No immediate postprocedure complications are noted. Patient is sent back to the room in good condition. Resume regular diet Resume regular activity level Wait on the biopsies Should patient decide to change his mind can proceed with colonoscopy
--- NOTE | 2018-03-22 17:17 | PDOC PROGRESS REPORT ---
Subjective Progress Note for:: 03/22/18 Subjective:: Spoke with patient today regarding his dialysis and he tells me that he has reconsidered his options and now no longer want hemodialysis. He wants to continue with PD He was planned for permacath placement today but in the last moment he has changed his mind. Last 3-4 days he has been on the fence about it but still agreed to get a permacath but now has changed his mind. I asked him why and he said that he does not want it. He understands that this will be d ifficult for him since he cannot go to short-term rehab nor can he go home safely on PD because his son lives next door. At this point he still complains of generalized pain everywhere in his body and mostly in his legs. 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: A.FIB WITH RVR,HYPOCALCEMIA, CELLULITIS Physical Exam Vital Signs: Temp Pulse Resp BP Pulse Ox 97.7 F 92 20 115/60 90 L 03/22/18 16:00 03/22/18 16:00 03/22/18 16:00 03/22/18 16:00 03/22/18 16:00 Intake & Output 03/21/18 03/22/18 03/23/18 06:59 06:59 06:59 Intake Total 4500 6400 3247.22 Output Total 4300 4500 3300 Balance 200 1900 -52.78 Weight 135 lb 2.294 oz 132 lb 15.02 oz 132 lb 11.492 oz General appearance: PRESENT: no acute distress, other - Frail and thin appearing-appears older than stated age Head exam: PRESENT: atraumatic, normocephalic Eye exam: PRESENT: EOMI. ABSENT: conjunctival injection, scleral icterus Ear exam: PRESENT: normal external ear exam Mouth exam: PRESENT: tongue midline Neck exam: ABSENT: tracheal deviation Respiratory exam: PRESENT: clear to auscultation tata, symmetrical Cardiovascular exam: PRESENT: +S1, +S2 Pulses: PRESENT: +1 pedal pulses bilateral GI/Abdominal exam: PRESENT: normal bowel sounds, soft. ABSENT: tenderness Extremities exam: PRESENT: pedal edema - Mild edema of the lower extremity Neurological exam: PRESENT: alert, awake, oriented to person, oriented to place, oriented to time, CN II-XII grossly intact Skin exam: PRESENT: erythema - Lower extremity erythema noted but most likely venous insufficiency, warm Results Laboratory Results: 03/22/18 04:33 03/22/18 04:33 03/21/18 03/21/18 03/21/18 11:46 18:56 21:08 WBC 11.6 H RBC 2.64 L Hgb 8.1 L D Hct 24.7 L MCV 94 D MCH 30.8 MCHC 32.9 RDW 16.9 H Plt Count 145 L Seg Neutrophils % 86.3 H Lymphocytes % 5.3 L Monocytes % 7.2 Eosinophils % 0.5 Basophils % 0.7 Absolute Neutrophils 10.0 H Absolute Lymphocytes 0.6 Absolute Monocytes 0.8 Absolute Eosinophils 0.1 Absolute Basophils 0.1 Retic Count (auto) Absolute Retic Sodium Potassium Chloride Carbon Dioxide Anion Gap BUN Creatinine Est GFR ( Amer) Est GFR (Non-Af Amer) Glucose Calcium Iron TIBC % Saturation Ferritin Vitamin B12 Folate Stool Occult Blood POSITIVE Blood Type A POSITIVE Antibody Screen NEGATIVE 03/22/18 03/22/18 04:33 04:33 WBC 10.7 H RBC 2.55 L Hgb 8.0 L Hct 23.7 L MCV 93 MCH 31.5 MCHC 33.8 RDW 17.1 H Plt Count 140 L Seg Neutrophils % Lymphocytes % Monocytes % Eosinophils % Basophils % Absolute Neutrophils Absolute Lymphocytes Absolute Monocytes Absolute Eosinophils Absolute Basophils Retic Count (auto) 3.32 H Absolute Retic 0.085 Sodium 138.8 Potassium 5.9 H Chloride 101 Carbon Dioxide 24 Anion Gap 14 BUN 106 H Creatinine 9.50 H Est GFR ( Amer) 7 L Est GFR (Non-Af Amer) 5 L Glucose 155 H Calcium 7.2 L Iron 56.3 TIBC 173 L % Saturation 33 Ferritin 637.00 H Vitamin B12 445.0 Folate > 20.00 Stool Occult Blood Blood Type Antibody Screen 03/16/18 16:28 Blood Blood Culture - Final NO GROWTH IN 5 DAYS 03/16/18 14:45 Blood Blood Culture - Final NO GROWTH IN 5 DAYS Impressions: Chest X-Ray 03/16/18 15:05 IMPRESSION: Cardiomegaly with no shara pulmonary edema. Small right pleural effusion. Assessment & Plan - Diagnosis (1) Atrial fibrillation with RVR Is this a current diagnosis for this admission?: Yes (2) Bilateral lower leg cellulitis Is this a current diagnosis for this admission?: Yes (3) COPD (chronic obstructive pulmonary disease) Qualifiers: Emphysema type: unspecified Is this a current diagnosis for this admission?: Yes (4) ESRD (end stage renal disease) Is this a current diagnosis for this admission?: Yes (5) Severe hypocalcemia Is this a current diagnosis for this admission?: Yes (6) Swelling of left hand Is this a current diagnosis for this admission?: Yes (7) Hyperkalemia Is this a current diagnosis for this admission?: Yes - Plan Summary Plan Summary: severe hypocalcemia-stable- contact assembler -on board - started on TUMS 1000mg QHS, will continue to monitor atrial fib w/ rvr -stable-heart rate less than 110 at this time-he is on metoprolol 12.5mg BID. may need labetalol IV PRN if he goes into RVR again- his BP is controlled- i do not see any anticoagulation on his home list- only ASA- will continue that for now. left hand swelling-stable-- will monitor for now- monitor for worsening symptoms or infection. afebrile now. Likely secondary to IV infiltration cellulitis-likely resolved-nephrology is giving him vanco- will monitor his progress. i am not so sure it this is cellulitis- seem to be venous insufficiency- he has LE wound but doesn't look to be infected. will monitor for now. acute on chronic anemia-no today his hemoglobin dropped to 5.7-we transfused him 2 units and today his hemoglobin is 8. He does have a history of chronic kidney disease and likely this is the cause of his chronic anemia. But I am not sure where he is having a GI bleed from. As per nursing he did have some dark colored stool so I went ahead and consulted GI yesterday. I appreciate GIs assistance in this matter. EGD was performed today-Per nursing EGD had shown gastritis and biopsy was sent for H. pylori. I do not see the EGD results yet. I will start him on Protonix IV twice daily at this time and await GI recommendations. There was plan to do colonoscopy but he had a bad bowel prep so it was canceled. His baseline is most likely between 8 and 9 secondary to his end-stage renal disease. ESRD- on [id number] was planning for a permacath to be done today and it was scheduled as patient agreed for hemodialysis. But today at the last moment patient stated that he does not want the dialysis anymore. He wants to go home on PD. Nephrology and I am concerned about this since patient is very weak to continue doing PD on his own. He states his son will help although he lives ne xt door and I am not sure if he is able to help. Unfortunately he will not be able to go to a rehab center to help with this. Hyperkalemia-I ordered Kayexalate this morning but he was n.p.o. for his procedure so he did not get it. Nephrology is aware and is trying to treat the hyperkalemia. Repeat labs in the morning. I did give him some calcium gluconate this morning. unfortunately his overall prognosis is poor given his ESRD, chronic anemia and Atrial fib. disposition-at this time nephrology is going to arrange for outpatient PD and hopefully he can be discharged when he is ready from GI standpoint.
[2018-03-22] MEDS: CLONAZEPAM 1 MG TABLET PO PRN (20:49)
[2018-03-22] MEDS: ATORVASTATIN CALCIUM 10 MG TABLET PO SCH (22:52)
[2018-03-22] MEDS: CALCIUM CARBONATE 500 MG TAB.CHEW PO SCH (22:52)
[2018-03-22] MEDS: PANTOPRAZOLE SODIUM 40 MG VIAL IV SCH (22:52)
[2018-03-23 05:19] LABS: ABSOLUTE BASOPHILS # (AUTO) 0.1 10^3/uL (0.0-0.2); ABSOLUTE EOSINOPHILS # (AUTO) 0.1 10^3/uL (0.0-0.6); ABSOLUTE LYMPHOCYTES (AUTO) 0.8 10^3/uL (0.5-4.7); ABSOLUTE MONOCYTES (AUTO) 0.9 10^3/uL (0.1-1.4); ABSOLUTE NEUT (AUTO) 6.4 10^3/uL (1.7-8.2); BASOPHILS % (AUTO) 1.2 % (0-2); EOSINOPHILS % (AUTO) 0.9 % (0-6); HEMATOCRIT 21.5 % (37.9-51.0); LYMPHOCYTES % (AUTO) 9.8 % (13-45); MEAN CORPUSCULAR HEMOGLOBIN 31.5 pg (27.0-33.4); MEAN CORPUSCULAR HGB CONC 33.8 g/dL (32.0-36.0); MEAN CORPUSCULAR VOLUME 93 fl (80-97); MONOCYTES % (AUTO) 10.5 % (3-13); PLATELET COUNT 148 10^3/uL (150-450); RED BLOOD COUNT 2.31 10^6/uL (4.35-5.55); RED CELL DISTRIBUTION WIDTH 16.7 % (11.5-14.0); SEGMENTED NEUTROPHILS % (AUTO) 77.6 % (42-78); TOTAL CELLS COUNTED % (AUTO) 100 %; WHITE BLOOD COUNT 8.2 10^3/uL (4.0-10.5)
[2018-03-23] MEDS: OXYCODONE-ACETAMINOPHEN 5-325 MG TABLET PO PRN ×3 (05:20→21:24)
[2018-03-23] MEDS: LEVOTHYROXINE SODIUM 0.112 MG TABLET PO SCH (05:20)
[2018-03-23 05:28] LABS: HEMOGLOBIN 7.3 g/dL (13.5-17.0)
[2018-03-23 05:39] LABS: ANION GAP 12 (5-19); BLOOD UREA NITROGEN 109 mg/dL (7-20); CALCIUM 7.4 mg/dL (8.4-10.2); CARBON DIOXIDE 24 mmol/L (22-30); CHLORIDE 100 mmol/L (98-107); GLUCOSE 143 mg/dL (75-110); POTASSIUM 5.9 mmol/L (3.6-5.0); SODIUM 135.6 mmol/L (137-145)
[2018-03-23] MEDS ORDERED: DIPHENHYDRAMINE HCL 50 MG/ML VIAL IV PRN (06:52)
[2018-03-23] MEDS ORDERED: ACETAMINOPHEN 325 MG TABLET PO PRN (06:52)
[2018-03-23] MEDS ORDERED: PATIROMER 8.4 GM SUSP PACKET PO ONE (08:00)
[2018-03-23] MEDS: CALCIUM ACETATE 667 MG CAPSULE PO SCH ×3 (08:05→18:30)
--- NOTE | 2018-03-23 10:41 | PDOC PROGRESS REPORT ---
Subjective Progress Note for:: 03/23/18 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: Patient was seen this morning. He is on a recliner and looking very sleepy. He is arousable. He denies any specific complaints of chest pain, shortness of breath, fever or chills. He denies any abdominal pains. He mentions that the clot came from 1 of his nostrils.He is adamant that he does not want to convert to hemodialysis. He is undergoing CAPD with 1.5 L of PD fluid. Discussions were done with the treating nurse. He has refused colonoscopy. He has black tarry stools. He also has refused Veltassa with his potassium today at 5.9. I discussed the issue of high potassium with the patient to make him understand and be aware that the consequences of high potassium can include sudden cardiac arrest. He says if he takes veltassa it will make him gag. The same thing with SPS but we do not have SPS in the hospital at the moment because it is on back order. He is he says he will manage it with PD and he is willing to face the consequences.Labs and medications were reviewed with him. Patient says he would like to go home soon. He says he will manage PD with the help of his son and does not care what other consequences.Labs today reviewed shows hemoglobin dropped from 7.3 and he is being arranged to have another pint of blood transfusion. Physical Exam Vital Signs: Temp Pulse Resp BP Pulse Ox 98.0 F 107 H 20 101/67 89 L 03/23/18 07:24 03/23/18 07:24 03/23/18 07:24 03/23/18 07:24 03/23/18 07:24 Intake & Output 03/22/18 03/23/18 03/24/18 06:59 06:59 06:59 Intake Total 6400 6247.22 Output Total 4500 7050 Balance 1900 -802.78 Weight 60.3 kg 60 kg General appearance: PRESENT: no acute distress, disheveled Respiratory exam: PRESENT: clear to auscultation tata, decreased breath sounds. ABSENT: crackles Cardiovascular exam: PRESENT: +S1, +S2, systolic murmur GI/Abdominal exam: PRESENT: distended, normal bowel sounds, soft. ABSENT: organomegaly, tenderness Extremities exam: ABSENT: pedal edema Neurological exam: PRESENT: awake, oriented to person, oriented to place Results Laboratory Results: 03/23/18 04:10 03/23/18 04:10 03/23/18 03/23/18 04:10 04:10 WBC 8.2 RBC 2.31 L Hgb 7.3 L Hct 21.5 L MCV 93 MCH 31.5 MCHC 33.8 RDW 16.7 H Plt Count 148 L Seg Neutrophils % 77.6 Lymphocytes % 9.8 L Monocytes % 10.5 Eosinophils % 0.9 Basophils % 1.2 Absolute Neutrophils 6.4 Absolute Lymphocytes 0.8 Absolute Monocytes 0.9 Absolute Eosinophils 0.1 Absolute Basophils 0.1 Sodium 135.6 L Potassium 5.9 H Chloride 100 Carbon Dioxide 24 Anion Gap 12 BUN 109 H Creatinine 9.48 H Est GFR ( Amer) 7 L Est GFR (Non-Af Amer) 5 L Glucose 143 H Calcium 7.4 L Impressions: Chest X-Ray 03/16/18 15:05 IMPRESSION: Cardiomegaly with no shara pulmonary edema. Small right pleural effusion. Assessment & Plan - Diagnosis (1) End-stage renal disease (ESRD) Is this a current diagnosis for this admission?: Yes Plan: Patient with ESRD on peritoneal dialysis who is now becoming quite moribund with extreme difficulty to conduct peritoneal dialysis on his own.He has refused conversion to hemodialysis given his extreme deconditioned state. He says he would like to go home and he will managed with the help of his son who lives next door. In the meanwhile continue on peritoneal dialysis. Potassium was high for which we will give him Veltassa followed by vigorous PD. He refuses to take Veltassa even though he took it yesterday.We discussed the consequences of hypertension to includes cardiac arrest and sudden . Discussed with the treating nurse.Overall the patient looks rather moribund and his prognosis for the near short-term and long-term is rather grave. (2) Hypotension Plan: Multifactorial. Generally doing better.Issues with dehydration and GI/nosebleed. Patient has black tarry stools but has refused colonoscopy.Patient about to be get transfusion. Currently stable. Monitor. (3) Bilateral lower leg cellulitis Is this a current diagnosis for this admission?: Yes Plan: Markedly improved. (4) Moderate to severe malnutrition Is this a current diagnosis for this admission?: Yes Plan: This is been a chronic problem that the patient is unable to have addressed it properly. Suggest high protein nutrition. (5) Unable to ambulate Plan: Patient is extremely deconditioned and weak. He is unsafe to himself and his h ome at the moment. He definitely would need to have rehab for a prolonged period of time. Discussed end-of-life issues and DNR but patient wants to be a full code. (6) Anemia in chronic kidney disease (CKD) Is this a current diagnosis for this admission?: Yes Plan: Currently has acute anemia. Status post transfusion. He is being worked up by GI. Continue on erythropoietin. (7) Atrial fibrillation with RVR Is this a current diagnosis for this admission?: Yes Plan: Presently rate controlled. Monitor. (8) COPD (chronic obstructive pulmonary disease) Qualifiers: Emphysema type: unspecified Is this a current diagnosis for this admission?: Yes Plan: Relatively stable. (9) CHF (congestive heart failure) Qualifiers: Qualified Code(s): I50.41 - Acute combined systolic (congestive) and diastolic (congestive) heart failure Plan: Presently compensated. Monitor. (10) Hypomagnesemia Plan: On replacements. (11) Hyperkalemia Is this a current diagnosis for this admission?: Yes Plan: Being addressed as mentioned earlier. Treat with Veltassa. Patient has refused it today. He understands the consequences.Will monitor.
[2018-03-23] MEDS: MIDODRINE HCL 5 MG TABLET PO SCH ×3 (11:00→18:30)
[2018-03-23] MEDS: FERROUS SULFATE 325 MG TABLET PO SCH ×3 (11:00→18:30)
[2018-03-23] MEDS: ASPIRIN 81 MG TABLET, CHEWABLE PO SCH (11:00)
[2018-03-23] MEDS: MAGNESIUM OXIDE 400 MG TABLET PO SCH ×2 (11:00→18:30)
[2018-03-23] MEDS: METOPROLOL TARTRATE 25 MG TABLET PO SCH ×2 (11:01→21:17)
[2018-03-23] MEDS: FOLIC ACID 1 MG TABLET PO SCH (11:01)
[2018-03-23] MEDS: PANTOPRAZOLE SODIUM 40 MG VIAL IV SCH ×2 (11:01→21:17)
[2018-03-23] MEDS: TIOTROPIUM BROMIDE DPI 5 CAP/KIT (18 MCG/CAP) IH SCH (11:02)
[2018-03-23] MEDS: FLUTICASONE/SALMETEROL DISKUS 250-50 MCG/DOSE IH SCH ×2 (11:02→21:18)
[2018-03-23] MEDS: CLONAZEPAM 1 MG TABLET PO PRN (12:56)
--- NOTE | 2018-03-23 14:06 | PDOC PROGRESS REPORT ---
Subjective Progress Note for:: 03/23/18 Subjective:: Doing better, but had nosebleed overnight. It has stopped at this time. No hematemesis, denies abdominal pain. EGD yesterday revealed esophagitis and gastritis. Patient has not been able to drink GoLYTELY and wants to hold off colonoscopy at this time. No cough or hemoptysis. No fever or chills. 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: A.FIB WITH RVR,HYPOCALCEMIA, CELLULITIS Physical Exam Vital Signs: Temp Pulse Resp BP Pulse Ox 98.0 F 107 H 20 101/67 89 L 03/23/18 07:24 03/23/18 11:20 03/23/18 07:24 03/23/18 11:20 03/23/18 07:24 Intake & Output 03/22/18 03/23/18 03/24/18 06:59 06:59 06:59 Intake Total 6400 6247.22 1500 Output Total 4500 7050 1800 Balance 1900 -802.78 -300 Weight 60.3 kg 60 kg 60.4 kg General appearance: PRESENT: no acute distress, other - Frail and thin appearing Head exam: PRESENT: atraumatic, normocephalic Eye exam: PRESENT: EOMI. ABSENT: conjunctival injection, scleral icterus Ear exam: PRESENT: normal external ear exam Mouth exam: PRESENT: tongue midline Neck exam: ABSENT: tracheal deviation Respiratory exam: PRESENT: clear to auscultation tata, symmetrical Cardiovascular exam: PRESENT: +S1, +S2 Pulses: PRESENT: +1 pedal pulses bilateral GI/Abdominal exam: PRESENT: normal bowel sounds, soft. ABSENT: tenderness Extremities exam: PRESENT: pedal edema - Mild edema of the lower extremity Neurological exam: PRESENT: alert, awake, oriented to person, oriented to place, oriented to time, CN II-XII grossly intact Skin exam: PRESENT: erythema - Lower extremity but more likely venous in sufficiency, warm Results Laboratory Results: 03/23/18 04:10 03/23/18 04:10 03/23/18 03/23/18 04:10 04:10 WBC 8.2 RBC 2.31 L Hgb 7.3 L Hct 21.5 L MCV 93 MCH 31.5 MCHC 33.8 RDW 16.7 H Plt Count 148 L Seg Neutrophils % 77.6 Lymphocytes % 9.8 L Monocytes % 10.5 Eosinophils % 0.9 Basophils % 1.2 Absolute Neutrophils 6.4 Absolute Lymphocytes 0.8 Absolute Monocytes 0.9 Absolute Eosinophils 0.1 Absolute Basophils 0.1 Sodium 135.6 L Potassium 5.9 H Chloride 100 Carbon Dioxide 24 Anion Gap 12 BUN 109 H Creatinine 9.48 H Est GFR ( Amer) 7 L Est GFR (Non-Af Amer) 5 L Glucose 143 H Calcium 7.4 L Impressions: Chest X-Ray 03/16/18 15:05 IMPRESSION: Cardiomegaly with no shara pulmonary edema. Small right pleural effusion. Assessment & Plan - Diagnosis (1) Anemia Qualifiers: Anemia type: due to chronic kidney disease Qualified Code(s): D64.9 - Anemia, unspecified Is this a current diagnosis for this admission?: Yes Plan: May be multifactorial, including acute blood loss, possible chronic GI blood los s and chronic kidney disease (2) Hypocalcemia Is this a current diagnosis for this admission?: Yes (3) Atrial fibrillation with RVR Is this a current diagnosis for this admission?: Yes (4) Bilateral lower leg cellulitis Is this a current diagnosis for this admission?: Yes (5) ESRD (end stage renal disease) Is this a current diagnosis for this admission?: Yes Plan: On peritoneal dialysis (6) Hyperkalemia Is this a current diagnosis for this admission?: Yes (7) Hypertension Qualifiers: Hypertension type: essential hypertension Qualified Code(s): I10 - Essential (primary) hypertension Is this a current diagnosis for this admission?: Yes - Plan Summary Plan Summary: Other treatments were 2 units packed red blood cells placed by nuctunist. I agree. Also continue erythropoietin. Continue PD. Patient thinking about whether to have colonoscopy. He has been noncompliant with Veltassa for hyperkalemia. Advised importance of compliance and dangers of hyperkalemia. Follow-up CBC and Chem-7 in a.m.
[2018-03-23] MEDS: ATORVASTATIN CALCIUM 10 MG TABLET PO SCH (21:18)
[2018-03-23 21:47] LABS: ABSOLUTE BASOPHILS # (AUTO) 0.1 10^3/uL (0.0-0.2); ABSOLUTE EOSINOPHILS # (AUTO) 0.1 10^3/uL (0.0-0.6); ABSOLUTE LYMPHOCYTES (AUTO) 0.8 10^3/uL (0.5-4.7); ABSOLUTE MONOCYTES (AUTO) 0.9 10^3/uL (0.1-1.4); ABSOLUTE NEUT (AUTO) 6.7 10^3/uL (1.7-8.2); EOSINOPHILS % (AUTO) 1.1 % (0-6); HEMATOCRIT 27.4 % (37.9-51.0); HEMOGLOBIN 9.2 g/dL (13.5-17.0); LYMPHOCYTES % (AUTO) 8.9 % (13-45); MEAN CORPUSCULAR HEMOGLOBIN 30.8 pg (27.0-33.4); MEAN CORPUSCULAR HGB CONC 33.7 g/dL (32.0-36.0); MEAN CORPUSCULAR VOLUME 91 fl (80-97); MONOCYTES % (AUTO) 10.5 % (3-13); PLATELET COUNT 140 10^3/uL (150-450); RED CELL DISTRIBUTION WIDTH 17.2 % (11.5-14.0); SEGMENTED NEUTROPHILS % (AUTO) 78.5 % (42-78); TOTAL CELLS COUNTED % (AUTO) 100 %; WHITE BLOOD COUNT 8.5 10^3/uL (4.0-10.5)
[2018-03-24] MEDS: CLONAZEPAM 1 MG TABLET PO PRN ×2 (00:16→12:17)
[2018-03-24 05:23] LABS: ABSOLUTE BASOPHILS # (AUTO) 0.1 10^3/uL (0.0-0.2); ABSOLUTE LYMPHOCYTES (AUTO) 0.8 10^3/uL (0.5-4.7); ABSOLUTE MONOCYTES (AUTO) 0.9 10^3/uL (0.1-1.4); ABSOLUTE NEUT (AUTO) 6.3 10^3/uL (1.7-8.2); BASOPHILS % (AUTO) 1.2 % (0-2); EOSINOPHILS % (AUTO) 0.6 % (0-6); HEMATOCRIT 26.2 % (37.9-51.0); HEMOGLOBIN 8.9 g/dL (13.5-17.0); LYMPHOCYTES % (AUTO) 9.8 % (13-45); MEAN CORPUSCULAR HGB CONC 33.8 g/dL (32.0-36.0); MEAN CORPUSCULAR VOLUME 92 fl (80-97); MONOCYTES % (AUTO) 10.9 % (3-13); PLATELET COUNT 140 10^3/uL (150-450); RED BLOOD COUNT 2.86 10^6/uL (4.35-5.55); RED CELL DISTRIBUTION WIDTH 17.5 % (11.5-14.0); SEGMENTED NEUTROPHILS % (AUTO) 77.5 % (42-78); TOTAL CELLS COUNTED % (AUTO) 100 %; WHITE BLOOD COUNT 8.1 10^3/uL (4.0-10.5)
[2018-03-24 05:43] LABS: ANION GAP 11 (5-19); BLOOD UREA NITROGEN 107 mg/dL (7-20); CALCIUM 7.1 mg/dL (8.4-10.2); CARBON DIOXIDE 24 mmol/L (22-30); CHLORIDE 100 mmol/L (98-107); GLUCOSE 108 mg/dL (75-110); SODIUM 135.2 mmol/L (137-145)
[2018-03-24 05:57] LABS: POTASSIUM 6.3 mmol/L (3.6-5.0)
[2018-03-24] MEDS: LEVOTHYROXINE SODIUM 0.112 MG TABLET PO SCH (06:05)
[2018-03-24] MEDS ORDERED: PATIROMER 8.4 GM SUSP PACKET PO ONE (06:30)
[2018-03-24] MEDS: ASPIRIN 81 MG TABLET, CHEWABLE PO SCH (09:02)
[2018-03-24] MEDS: CALCIUM ACETATE 667 MG CAPSULE PO SCH ×3 (09:02→18:53)
[2018-03-24] MEDS: METOPROLOL TARTRATE 25 MG TABLET PO SCH ×2 (09:27→21:03)
[2018-03-24] MEDS: FOLIC ACID 1 MG TABLET PO SCH (09:28)
[2018-03-24] MEDS: TIOTROPIUM BROMIDE DPI 5 CAP/KIT (18 MCG/CAP) IH SCH (09:28)
[2018-03-24] MEDS: FERROUS SULFATE 325 MG TABLET PO SCH ×3 (09:28→18:53)
[2018-03-24] MEDS: PANTOPRAZOLE SODIUM 40 MG VIAL IV SCH ×2 (09:28→21:03)
[2018-03-24] MEDS: MAGNESIUM OXIDE 400 MG TABLET PO SCH ×2 (09:28→18:53)
[2018-03-24] MEDS: OXYCODONE-ACETAMINOPHEN 5-325 MG TABLET PO PRN ×2 (09:28→19:29)
[2018-03-24] MEDS: MIDODRINE HCL 5 MG TABLET PO SCH ×2 (09:28→18:54)
[2018-03-24] MEDS: FLUTICASONE/SALMETEROL DISKUS 250-50 MCG/DOSE IH SCH ×2 (09:28→21:04)
[2018-03-24] MEDS ORDERED: MIDODRINE HCL 5 MG TABLET PO ONE (11:30)
--- NOTE | 2018-03-24 12:03 | PDOC PROGRESS REPORT ---
Subjective Progress Note for:: 03/24/18 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: He sitting in his recliner. He had transfusions yesterday. No apparent GI bleed. He denies any complaints of abdominal pains or further nosebleeds.Status post upper GI endoscopy which has shown gastritis. Is complaining of swelling of his legs and of his penis. He denies any history of chest pain or shortness of breath. No history of any fever or chills. He continues to only do 1.5 L of PD exchanges on CAPD.His labs have come back showing that his potassium is high at 6.3. Refused to take Veltassa yesterday.Labs and medications were reviewed with him. Discussions were done with this treating nurse. Physical Exam Vital Signs: Temp Pulse Resp BP Pulse Ox 98.1 F 87 18 105/74 89 L 03/24/18 11:20 03/24/18 11:20 03/24/18 11:20 03/24/18 11:20 03/24/18 11:20 Intake & Output 03/23/18 03/24/18 03/25/18 06:59 06:59 06:59 Intake Total 6247.22 5584 1500 Output Total 7050 3501 1650 Balance -802.78 2083 -150 Weight 60 kg 61.1 kg General appearance: PRESENT: no acute distress Respiratory exam: PRESENT: clear to auscultation tata, decreased breath sounds. ABSENT: crackles Cardiovascular exam: PRESENT: +S1, +S2, systolic murmur GI/Abdominal exam: PRESENT: distended, normal bowel sounds, soft. ABSENT: organomegaly, tenderness Extremities exam: PRESENT: +1 edema Neurological exam: PRESENT: alert, awake, oriented to person, oriented to place Psychiatric exam: PRESENT: appropriate affect Skin exam: PRESENT: mottled - Venous stasis of lower extremities. Cellulitis have improved.. ABSENT: cyanosis, erythema Results Laboratory Results: 03/24/18 04:11 03/24/18 04:11 03/21/18 03/23/18 03/23/18 11:46 14:07 21:40 WBC 8.5 RBC 3.00 L Hgb 9.2 L Hct 27.4 L MCV 91 MCH 30.8 MCHC 33.7 RDW 17.2 H Plt Count 140 L Seg Neutrophils % 78.5 H Lymphocytes % 8.9 L Monocytes % 10.5 Eosinophils % 1.1 Basophils % 1.0 Absolute Neutrophils 6.7 Absolute Lymphocytes 0.8 Absolute Monocytes 0.9 Absolute Eosinophils 0.1 Absolute Basophils 0.1 Sodium Potassium Chloride Carbon Dioxide Anion Gap BUN Creatinine Est GFR ( Amer) Est GFR (Non-Af Amer) Glucose Calcium Stool Occult Blood POSITIVE Blood Type A POSITIVE Antibody Screen NEGATIVE 03/24/18 03/24/18 04:11 04:11 WBC 8.1 RBC 2.86 L Hgb 8.9 L Hct 26.2 L MCV 92 MCH 31.0 MCHC 33.8 RDW 17.5 H Plt Count 140 L Seg Neutrophils % 77.5 Lymphocytes % 9.8 L Monocytes % 10.9 Eosinophils % 0.6 Basophils % 1.2 Absolute Neutrophils 6.3 Absolute Lymphocytes 0.8 Absolute Monocytes 0.9 Absolute Eosinophils 0.0 Absolute Basophils 0.1 Sodium 135.2 L Potassium 6.3 H* Chloride 100 Carbon Dioxide 24 Anion Gap 11 BUN 107 H Creatinine 9.22 H Est GFR ( Amer) 7 L Est GFR (Non-Af Amer) 6 L Glucose 108 Calcium 7.1 L Stool Occult Blood Blood Type Antibody Screen Impressions: Chest X-Ray 03/16/18 15:05 IMPRESSION: Cardiomegaly with no shara pulmonary edema. Small right pleural effusion. Assessment & Plan - Diagnosis (1) End-stage renal disease (ESRD) Is this a current diagnosis for this admission?: Yes Plan: Patient with ESRD on peritoneal dialysis who is now becoming quite moribund with extreme difficulty to conduct peritoneal dialysis on his own.He has refused conversion to hemodialysis given his extreme deconditioned state. He denies having evidences and symptoms of fluid overload.Plan for 2 L exchanges for 4 hours based on his blood pressure.Also will start him on some IV albumin. Potassium was high for which we will give him Veltassa followed by vigorous PD. He refuses to take Veltassa. We discussed the consequences of hypertension to includes cardiac arrest and sudden . Discussed with the treating nurse.Overall the patient looks rather moribund and his prognosis for the near short-term and long-term is rather grave. (2) Hypotension Plan: Multifactorial. Going to increase his midodrine to 10 mg 3 times daily. Monitor. (3) Bilateral lower leg cellulitis Is this a current diagnosis for this admission?: Yes Plan: Markedly improved. (4) Moderate to severe malnutrition Is this a current diagnosis for this admission?: Yes Plan: This is been a chronic problem that the patient is unable to have addressed it properly. Suggest high protein nutrition. (5) Unable to ambulate Plan: Patient is extremely deconditioned and weak. He is unsafe to himself and his home at the moment. He definitely would need to have rehab for a prolonged period of time. Discussed end-of-life issues and DNR but patient wants to be a full code. (6) Anemia in chronic kidney disease (CKD) Is this a current diagnosis for this admission?: Yes Plan: Currently has acute anemia. Status post transfusion. He is being worked up by GI. Continue on erythropoietin. (7) Atrial fibrillation with RVR Is this a current diagnosis for this admission?: Yes Plan: Presently rate controlled. Monitor. (8) COPD (chronic obstructive pulmonary disease) Qualifiers: Emphysema type: unspecified Is this a current diagnosis for this admission?: Yes Plan: Relatively stable. (9) CHF (congestive heart failure) Qualifiers: Qualified Code(s): I50.41 - Acute combined systolic (congestive) and diastolic (congestive) heart failure Plan: Presently compensated. Monitor. (10) Hypomagnesemia Plan: On replacements. (11) Hyperkalemia Is this a current diagnosis for this admission?: Yes Plan: Being addressed as mentioned earlier. Treat with Veltassa. He understands the consequences including cardiac arrest.Will monitor.
[2018-03-24] MEDS: ALBUMIN HUMAN 12.5 GM/50 ML RTUINJ IV SCH ×2 (15:03→21:03)
[2018-03-24] MEDS ORDERED: PATIROMER 8.4 GM SUSP PACKET PO SCH (17:00)
--- NOTE | 2018-03-24 17:55 | PDOC PROGRESS REPORT ---
Subjective Progress Note for:: 03/24/18 Subjective:: Complains of worsening penile and lower extremity edema. Patient has been noncompliant with completing peritoneal dialysis as well as taking Veltassa for his hyperkalemia. He was educated about this. Denies chest pain or shortness of breath at this time. No hematemesis, denies abdominal pain. EGD 03/22/18 revealed esophagitis and gastritis. Patient was noncompliant with drinking GoLYTELY for colonoscopy. No cough or hemoptysis. No fever or chills. 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: A.FIB WITH RVR,HYPOCALCEMIA, CELLULITIS Physical Exam Vital Signs: Temp Pulse Resp BP Pulse Ox 98.0 F 99 20 124/73 91 L 03/24/18 15:57 03/24/18 15:57 03/24/18 15:57 03/24/18 15:57 03/24/18 15:57 Intake & Output 03/23/18 03/24/18 03/25/18 06:59 06:59 06:59 Intake Total 6247.22 5584 3836 Output Total 7050 3501 3350 Balance -802.78 2083 486 Weight 60 kg 61.1 kg General appearance: PRESENT: no acute distress, other - Frail and thin appearing Head exam: PRESENT: atraumatic, normocephalic Eye exam: PRESENT: EOMI. ABSENT: conjunctival injection, scleral icterus Ear exam: PRESENT: normal external ear exam Mouth exam: PRESENT: tongue midline Neck exam: ABSENT: tracheal deviation Respiratory exam: PRESENT: clear to auscultation tata, symmetrical Cardiovascular exam: PRESENT: +S1, +S2 Pulses: PRESENT: +1 pedal pulses bilateral GI/Abdominal exam: PRESENT: normal bowel sounds, soft. ABSENT: tenderness Extremities exam: PRESENT: pedal edema - 2+ edema of the lower extremity Neurological exam: PRESENT: alert, awake, oriented to person, oriented to place, oriented to time, CN II-XII grossly intact Skin exam: PRESENT: erythema - Lower extremity but more likely venous insufficiency, warm Results Laboratory Results: 03/24/18 04:11 03/24/18 04:11 03/23/18 03/24/18 03/24/18 21:40 04:11 04:11 WBC 8.5 8.1 RBC 3.00 L 2.86 L Hgb 9.2 L 8.9 L Hct 27.4 L 26.2 L MCV 91 92 MCH 30.8 31.0 MCHC 33.7 33.8 RDW 17.2 H 17.5 H Plt Count 140 L 140 L Seg Neutrophils % 78.5 H 77.5 Lymphocytes % 8.9 L 9.8 L Monocytes % 10.5 10.9 Eosinophils % 1.1 0.6 Basophils % 1.0 1.2 Absolute Neutrophils 6.7 6.3 Absolute Lymphocytes 0.8 0.8 Absolute Monocytes 0.9 0.9 Absolute Eosinophils 0.1 0.0 Absolute Basophils 0.1 0.1 Sodium 135.2 L Potassium 6.3 H* Chloride 100 Carbon Dioxide 24 Anion Gap 11 BUN 107 H Creatinine 9.22 H Est GFR ( Amer) 7 L Est GFR (Non-Af Amer) 6 L Glucose 108 Calcium 7.1 L Impressions: Chest X-Ray 03/16/18 15:05 IMPRESSION: Cardiomegaly with no shara pulmonary edema. Small right pleural effusion. Assessment & Plan - Diagnosis (1) Anemia Qualifiers: Anemia type: due to chronic kidney disease Is this a current diagnosis for this admission?: Yes (2) Hypocalcemia Is this a current diagnosis for this admission?: Yes (3) Atrial fibrillation with RVR Is this a current diagnosis for this admission?: Yes (4) Bilateral lower leg cellulitis Is this a current diagnosis for this admission?: Yes (5) ESRD (end stage renal disease) Is this a current diagnosis for this admission?: Yes (6) Hyperkalemia Is this a current diagnosis for this admission?: Yes (7) Hypertension Qualifiers: Hypertension type: essential hypertension Qualified Code(s): I10 - Essential (primary) hypertension Is this a current diagnosis for this admission?: Yes - Plan Summary Plan Summary: Patient received 2 units packed red blood cells yesterday and hemoglobin better today. Will continue to trend. Also continue erythropoietin. Continue peritoneal dialysis, PD--patient has refused hemodialysis. He is also not very compliant with for PD. He is also not very compliant with taking Veltassa for hyperkalemia. Advised of dangers of hyperkalemia, including cardiac arrest and . Informed also that better compliance with PD and possibly switching to HD may help with his edema or hyperkalemia. Discussed with Dr. Eric of nephrology. His note appreciated.
[2018-03-24] MEDS: PATIROMER 8.4 GM SUSP PACKET PO SCH (18:53)
[2018-03-24] MEDS: ATORVASTATIN CALCIUM 10 MG TABLET PO SCH (21:04)
[2018-03-24] MEDS: ZOLPIDEM TARTRATE 5 MG TABLET PO PRN (21:05)
[2018-03-25 05:41] LABS: ABSOLUTE BASOPHILS # (AUTO) 0.1 10^3/uL (0.0-0.2); ABSOLUTE EOSINOPHILS # (AUTO) 0.1 10^3/uL (0.0-0.6); ABSOLUTE LYMPHOCYTES (AUTO) 0.7 10^3/uL (0.5-4.7); ABSOLUTE MONOCYTES (AUTO) 0.9 10^3/uL (0.1-1.4); ABSOLUTE NEUT (AUTO) 5.8 10^3/uL (1.7-8.2); BASOPHILS % (AUTO) 0.8 % (0-2); HEMATOCRIT 25.5 % (37.9-51.0); HEMOGLOBIN 8.4 g/dL (13.5-17.0); LYMPHOCYTES % (AUTO) 8.8 % (13-45); MEAN CORPUSCULAR HGB CONC 33.1 g/dL (32.0-36.0); MEAN CORPUSCULAR VOLUME 94 fl (80-97); MONOCYTES % (AUTO) 11.7 % (3-13); PLATELET COUNT 131 10^3/uL (150-450); RED BLOOD COUNT 2.72 10^6/uL (4.35-5.55); RED CELL DISTRIBUTION WIDTH 17.4 % (11.5-14.0); SEGMENTED NEUTROPHILS % (AUTO) 77.7 % (42-78); TOTAL CELLS COUNTED % (AUTO) 100 %; WHITE BLOOD COUNT 7.4 10^3/uL (4.0-10.5)
[2018-03-25] MEDS: LEVOTHYROXINE SODIUM 0.112 MG TABLET PO SCH (05:43)
[2018-03-25] MEDS: ALBUMIN HUMAN 12.5 GM/50 ML RTUINJ IV SCH ×2 (05:43→14:21)
[2018-03-25 06:02] LABS: ANION GAP 12 (5-19); BLOOD UREA NITROGEN 101 mg/dL (7-20); CALCIUM 7.1 mg/dL (8.4-10.2); CARBON DIOXIDE 25 mmol/L (22-30); CHLORIDE 99 mmol/L (98-107); GLUCOSE 139 mg/dL (75-110); POTASSIUM 5.6 mmol/L (3.6-5.0); SODIUM 136.1 mmol/L (137-145)
[2018-03-25] MEDS: MIDODRINE HCL 5 MG TABLET PO SCH ×3 (09:45→17:37)
[2018-03-25] MEDS: CALCIUM ACETATE 667 MG CAPSULE PO SCH ×3 (09:45→17:38)
[2018-03-25] MEDS: MAGNESIUM OXIDE 400 MG TABLET PO SCH ×2 (09:45→17:37)
[2018-03-25] MEDS: FOLIC ACID 1 MG TABLET PO SCH (09:46)
[2018-03-25] MEDS: FERROUS SULFATE 325 MG TABLET PO SCH ×3 (09:46→17:37)
[2018-03-25] MEDS: ASPIRIN 81 MG TABLET, CHEWABLE PO SCH (09:46)
[2018-03-25] MEDS: FLUTICASONE/SALMETEROL DISKUS 250-50 MCG/DOSE IH SCH ×2 (09:46→21:24)
[2018-03-25] MEDS: METOPROLOL TARTRATE 25 MG TABLET PO SCH ×2 (09:46→21:23)
[2018-03-25] MEDS: TIOTROPIUM BROMIDE DPI 5 CAP/KIT (18 MCG/CAP) IH SCH (09:47)
[2018-03-25] MEDS: PANTOPRAZOLE SODIUM 40 MG VIAL IV SCH (09:49)
[2018-03-25] MEDS: OXYCODONE-ACETAMINOPHEN 5-325 MG TABLET PO PRN ×2 (11:20→17:36)
--- NOTE | 2018-03-25 14:04 | PDOC PROGRESS REPORT ---
Subjective Progress Note for:: 03/25/18 Subjective:: Patient was seen and examined. He was undergoing peritoneal dialysis. He says he is feeling better and getting stronger. Still have swelling of his legs and his penis. 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: A.FIB WITH RVR,HYPOCALCEMIA, CELLULITIS Physical Exam Vital Signs: Temp Pulse Resp BP Pulse Ox 98.6 F 86 18 132/64 H 95 03/25/18 07:48 03/25/18 07:48 03/25/18 07:48 03/25/18 07:48 03/25/18 07:48 Intake & Output 03/24/18 03/25/18 03/26/18 06:59 06:59 06:59 Intake Total 5584 7636 1500 Output Total 3501 8200 2000 Balance 3989 -903 -397 Weight 134 lb 11.239 oz 143 lb 15.39 oz 137 lb 12.623 oz General appearance: PRESENT: no acute distress, cooperative, thin Head exam: PRESENT: atraumatic, normocephalic Eye exam: ABSENT: conjunctival injection Mouth exam: PRESENT: moist, neck supple Neck exam: ABSENT: meningismus, tenderness Respiratory exam: PRESENT: clear to auscultation tata Cardiovascular exam: PRESENT: irregular rhythm GI/Abdominal exam: PRESENT: soft. ABSENT: tenderness Rectal exam: PRESENT: deferred Extremities exam: PRESENT: pedal edema Neurological exam: PRESENT: alert, awake, oriented to person, oriented to place, oriented to time, oriented to situation Psychiatric exam: ABSENT: agitated, anxious Results Laboratory Results: 03/25/18 03:46 03/25/18 03:46 03/25/18 03/25/18 03:46 03:46 WBC 7.4 RBC 2.72 L Hgb 8.4 L Hct 25.5 L MCV 94 MCH 31.0 MCHC 33.1 RDW 17.4 H Plt Count 131 L Seg Neutrophils % 77.7 Lymphocytes % 8.8 L Monocytes % 11.7 Eosinophils % 1.0 Basophils % 0.8 Absolute Neutrophils 5.8 Absolute Lymphocytes 0.7 Absolute Monocytes 0.9 Absolute Eosinophils 0.1 Absolute Basophils 0.1 Sodium 136.1 L Potassium 5.6 H Chloride 99 Carbon Dioxide 25 Anion Gap 12 BUN 101 H Creatinine 9.28 H Est GFR ( Amer) 7 L Est GFR (Non-Af Amer) 6 L Glucose 139 H Calcium 7.1 L Impressions: Chest X-Ray 03/16/18 15:05 IMPRESSION: Cardiomegaly with no shara pulmonary edema. Small right pleural effusion. Assessment & Plan - Diagnosis (1) ESRD (end stage renal disease) Is this a current diagnosis for this admission?: Yes Plan: on Peritoneal dialysis per nephrology. (2) Anemia in chronic kidney disease (CKD) Is this a current diagnosis for this admission?: Yes Plan: EGD shows gastritis. Colonoscopy was not done because of incomplete prep (3) Atrial fibrillation with RVR Is this a current diagnosis for this admission?: Yes Plan: rate controlled (4) Hypocalcemia Is this a current diagnosis for this admission?: Yes Plan: Continue supplements (5) Hyperkalemia Is this a current diagnosis for this admission?: Yes Plan: On Veltassa (6) Hypotension Is this a current diagnosis for this admission?: Yes Plan: On midodrine
[2018-03-25] MEDS ORDERED: PATIROMER 8.4 GM SUSP PACKET PO ONE (18:32)
[2018-03-25] MEDS: PATIROMER 8.4 GM SUSP PACKET PO SCH (18:45)
[2018-03-25] MEDS ORDERED: DOCUSATE SODIUM 100 MG CAPSULE PO ONE ×2 (19:00→21:40)
[2018-03-25] MEDS: ATORVASTATIN CALCIUM 10 MG TABLET PO SCH (21:23)
[2018-03-25] MEDS: ZOLPIDEM TARTRATE 5 MG TABLET PO PRN (21:23)
[2018-03-26 06:21] LABS: HEMATOCRIT 26.1 % (37.9-51.0); HEMOGLOBIN 8.8 g/dL (13.5-17.0); MEAN CORPUSCULAR HGB CONC 33.6 g/dL (32.0-36.0); MEAN CORPUSCULAR VOLUME 92 fl (80-97); PLATELET COUNT 141 10^3/uL (150-450); RED BLOOD COUNT 2.83 10^6/uL (4.35-5.55); WHITE BLOOD COUNT 8.2 10^3/uL (4.0-10.5)
[2018-03-26] MEDS: LEVOTHYROXINE SODIUM 0.112 MG TABLET PO SCH (06:50)
[2018-03-26 07:03] LABS: ANION GAP 14 (5-19); BLOOD UREA NITROGEN 102 mg/dL (7-20); CALCIUM 7.5 mg/dL (8.4-10.2); CARBON DIOXIDE 26 mmol/L (22-30); CHLORIDE 96 mmol/L (98-107); GLUCOSE 125 mg/dL (75-110); POTASSIUM 5.6 mmol/L (3.6-5.0); SODIUM 136.1 mmol/L (137-145)
[2018-03-26] MEDS: OXYCODONE-ACETAMINOPHEN 5-325 MG TABLET PO PRN ×2 (08:19→14:55)
[2018-03-26] MEDS: CALCIUM ACETATE 667 MG CAPSULE PO SCH ×3 (08:22→18:28)
[2018-03-26] MEDS: METOPROLOL TARTRATE 25 MG TABLET PO SCH ×2 (10:39→21:33)
[2018-03-26] MEDS: ASPIRIN 81 MG TABLET, CHEWABLE PO SCH (10:39)
[2018-03-26] MEDS: FERROUS SULFATE 325 MG TABLET PO SCH ×3 (10:39→18:27)
[2018-03-26] MEDS: MIDODRINE HCL 5 MG TABLET PO SCH ×3 (10:40→18:32)
[2018-03-26] MEDS: FOLIC ACID 1 MG TABLET PO SCH (10:40)
[2018-03-26] MEDS: MAGNESIUM OXIDE 400 MG TABLET PO SCH ×2 (10:40→18:25)
[2018-03-26] MEDS: DOCUSATE SODIUM 100 MG CAPSULE PO SCH ×2 (10:40→18:27)
[2018-03-26] MEDS: FLUTICASONE/SALMETEROL DISKUS 250-50 MCG/DOSE IH SCH ×2 (10:40→21:34)
[2018-03-26] MEDS: TIOTROPIUM BROMIDE DPI 5 CAP/KIT (18 MCG/CAP) IH SCH (10:41)
--- NOTE | 2018-03-26 12:58 | PDOC PROGRESS REPORT ---
Subjective Progress Note for:: 03/26/18 Subjective:: Patient was seen and examined. He was undergoing peritoneal dialysis. He says he is feeling better and getting stronger. Still have swelling of his legs and his penis. 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: A.FIB WITH RVR,HYPOCALCEMIA, CELLULITIS Physical Exam Vital Signs: Temp Pulse Resp BP Pulse Ox 98.3 F 130 H 16 122/92 H 99 03/26/18 11:08 03/26/18 11:08 03/26/18 11:08 03/26/18 11:08 03/26/18 11:08 Intake & Output 03/25/18 03/26/18 03/27/18 06:59 06:59 06:59 Intake Total 7636 8027 3000 Output Total 8200 6100 600 Balance -564 1927 2400 Weight 143 lb 15.39 oz 143 lb 8.335 oz 143 lb 15.39 oz General appearance: PRESENT: no acute distress, cooperative Head exam: PRESENT: atraumatic, normocephalic Mouth exam: PRESENT: moist, neck supple Neck exam: ABSENT: meningismus, tenderness Respiratory exam: PRESENT: clear to auscultation tata. ABSENT: accessory muscle use Cardiovascular exam: PRESENT: irregular rhythm Pulses: PRESENT: normal radial pulses GI/Abdominal exam: PRESENT: normal bowel sounds, soft Rectal exam: PRESENT: deferred Gentrourinary exam: PRESENT: scrotal swelling Neurological exam: PRESENT: alert, awake, oriented to person, oriented to place, oriented to time, oriented to situation Psychiatric exam: PRESENT: appropriate affect, flat affect Results Laboratory Results: 03/26/18 05:39 03/26/18 05:39 03/26/18 03/26/18 05:39 05:39 WBC 8.2 RBC 2.83 L Hgb 8.8 L Hct 26.1 L MCV 92 MCH 31.0 MCHC 33.6 RDW 17.0 H Plt Count 141 L Sodium 136.1 L Potassium 5.6 H Chloride 96 L Carbon Dioxide 26 Anion Gap 14 BUN 102 H Creatinine 9.62 H Est GFR ( Amer) 7 L Est GFR (Non-Af Amer) 5 L Glucose 125 H Calcium 7.5 L Impressions: Chest X-Ray 03/16/18 15:05 IMPRESSION: Cardiomegaly with no shara pulmonary edema. Small right pleural effusion. Assessment & Plan - Diagnosis (1) ESRD (end stage renal disease) Is this a current diagnosis for this admission?: Yes Plan: on Peritoneal dialysis per nephrology. (2) Anemia in chronic kidney disease (CKD) Is this a current diagnosis for this admission?: Yes Plan: EGD shows gastritis. Colonoscopy was not done because of incomplete prep. monitor H/H (3) Atrial fibrillation with RVR Is this a current diagnosis for this admission?: Yes Plan: rate controlled (4) Hypocalcemia Is this a current diagnosis for this admission?: Yes Plan: Continue supplements (5) Hyperkalemia Is this a current diagnosis for this admission?: Yes Plan: On Veltassa. monitor K levels (6) Hypotension Is this a current diagnosis for this admission?: Yes Plan: On midodrine. improved.
[2018-03-26] MEDS ORDERED: CYCLOBENZAPRINE HCL 10 MG TABLET PO PRN (13:30)
--- NOTE | 2018-03-26 14:29 | PDOC CONSULTATION ---
Consultation Consult Date: 03/26/18 Consult reason:: malfunctioning PD catheter History of Present Illness Admission Date/PCP: 03/16/18 16:48 K Adrianne ROMERO MD History of Present Illness: JULIANNA MCKEON JR is a 72 year old male admitted for cellulitis of left lower extremity. Has been on PD for 4 years. Today the catheter had infow of dialysate, however, nothing has been coming out indicating it is clogged. [facility]. Past Medical History Cardiac Medical History: Reports: Atrial Fibrillation, Coronary Artery Disease, Hypertension Denies: Myocardial Infarction Pulmonary Medical History: Reports: Chronic Obstructive Pulmonary Disease (COPD) Denies: Asthma Neurological Medical History: Denies: Seizures Renal/ Medical History: Reports: End Stage Renal Disease GI Medical History: Reports: Hiatal Hernia Denies: Hepatitis Musculoskeltal Medical History: Reports: Arthritis Psychiatric Medical History: Denies: Depression Hematology: Reports: Anemia Denies: Sickle Cell Disease Past Surgical History Past Surgical History: Reports: Cardiac Catheterization - CABG Denies: Pacemaker Social History Lives with: Alone Smoking Status: Former Smoker Frequency of Alcohol Use: None Hx Recreational Drug Use: No Drugs: None, Marijuana Hx Prescription Drug Abuse: No - Advance Directive Resuscitation Status: Full Code Family History Family History: Hypertension Parental Family History Reviewed: Yes Children Family History Reviewed: No Sibling(s) Family History Reviewed.: No Medication/Allergy Home Medications: Aspirin [Aspirin 81 mg Chewable Tablet] 81 mg PO DAILY 02/16/18 Atorvastatin Calcium [Lipitor 10 mg Tablet] 10 mg PO QHS 02/16/18 Calcium Acetate [Phoslo 667 mg Capsule] 667 mg PO MEALS 02/16/18 Fluticasone/Salmeterol [Advair HFA 115-21 mcg Inhaler] 2 puff IH Q12 02/16/18 Folic Acid [Folvite 1 mg Tablet] 1 mg PO DAILY 02/16/18 Levothyroxine Sodium 112 mcg PO Q6AM 02/16/18 Megestrol Acetate 20 ml PO DAILY 02/16/18 Tiotropium Sanger [Spiriva Respimat] 1 puff IH Q12 02/16/18 Vitamin B Complex 1 tab PO DAILY 02/16/18 Zolpidem Tartrate [Ambien] 10 mg PO HSP PRN 02/16/18 Ferrous Sulfate [Iron] 325 mg PO TID 02/17/18 Lactulose 10 ml PO BID PRN 02/17/18 Melatonin/Pyridoxine HCl (B6) [Melatonin 5 mg Tablet] 1 each PO HSP PRN 02/17/18 Clonazepam [Klonopin 1 mg Tablet] 0.5 mg PO Q12HP PRN tablet 02/23/18 Metoprolol Succinate [Toprol Xl 25 mg Tab.sr] 25 mg PO DAILY #30 tab.sr.24h 02/23/18 Trazodone HCl [Desyrel 50 mg Tablet] 50 mg PO HSP PRN #30 tablet 02/23/18 Allergies/Adverse Reactions: Sulfa (Sulfonamide Antibiotics) Allergy (Verified 02/16/18 18:16) Review of Systems Review of Systems: abdominal discomfort after inflow of dialysate to abdomen Physical Exam Vital Signs: Temp Pulse Resp BP Pulse Ox 98.3 F 130 H 16 122/92 H 99 03/26/18 11:08 03/26/18 12:28 03/26/18 11:08 03/26/18 12:28 03/26/18 11:08 Intake & Output 03/25/18 03/26/18 03/27/18 06:59 06:59 06:59 Intake Total 7636 8027 4500 Output Total 8200 6100 600 Balance -564 1927 3900 Weight 65.3 kg 65.1 kg 65.3 kg General appearance: PRESENT: mild distress Exam: Abdomen is full with mild tenderness. PD catheter not draining Head exam: PRESENT: atraumatic Eye exam: PRESENT: conjunctiva pink Mouth exam: PRESENT: moist Neck exam: PRESENT: full ROM Respiratory exam: PRESENT: clear to auscultation tata Cardiovascular exam: PRESENT: RRR Pulses: PRESENT: normal radial pulses GI/Abdominal exam: PRESENT: firm, tenderness - mild tenderness diffuse Rectal exam: PRESENT: deferred Extremities exam: PRESENT: full ROM Musculoskeletal exam: PRESENT: ambulatory Neurological exam: PRESENT: alert, oriented to person, oriented to place, o riented to time, oriented to situation Psychiatric exam: PRESENT: appropriate affect Skin exam: PRESENT: normal color, warm Results Laboratory Results: 03/26/18 05:39 03/26/18 05:39 03/26/18 03/26/18 05:39 05:39 WBC 8.2 RBC 2.83 L Hgb 8.8 L Hct 26.1 L MCV 92 MCH 31.0 MCHC 33.6 RDW 17.0 H Plt Count 141 L Sodium 136.1 L Potassium 5.6 H Chloride 96 L Carbon Dioxide 26 Anion Gap 14 BUN 102 H Creatinine 9.62 H Est GFR ( Amer) 7 L Est GFR (Non-Af Amer) 5 L Glucose 125 H Calcium 7.5 L Impressions: Chest X-Ray 03/16/18 15:05 IMPRESSION: Cardiomegaly with no shara pulmonary edema. Small right pleural effusion. Assessment & Plan - Diagnosis (1) clogged PD catheter Is this a current diagnosis for this admission?: Yes - Time Time Spent: 30 to 50 Minutes - Plan Summary Plan Summary: PD catheter disconnecte at hub site. It was then flushed with a sterile 3 cc syringe to dislodge any blockage. This was followed by brisked dialysate return and hooked back up again. Obstruction appears resolved.
[2018-03-26] MEDS: PATIROMER 8.4 GM SUSP PACKET PO SCH (18:34)
[2018-03-26] MEDS: ZOLPIDEM TARTRATE 5 MG TABLET PO PRN (21:34)
[2018-03-26] MEDS: ATORVASTATIN CALCIUM 10 MG TABLET PO SCH (21:34)
[2018-03-27 04:50] LABS: HEMATOCRIT 25.9 % (37.9-51.0); HEMOGLOBIN 8.6 g/dL (13.5-17.0); MEAN CORPUSCULAR HEMOGLOBIN 31.2 pg (27.0-33.4); MEAN CORPUSCULAR HGB CONC 33.3 g/dL (32.0-36.0); MEAN CORPUSCULAR VOLUME 94 fl (80-97); PLATELET COUNT 145 10^3/uL (150-450); RED BLOOD COUNT 2.76 10^6/uL (4.35-5.55); WHITE BLOOD COUNT 7.5 10^3/uL (4.0-10.5)
[2018-03-27 05:16] LABS: ANION GAP 15 (5-19); BLOOD UREA NITROGEN 100 mg/dL (7-20); CALCIUM 7.7 mg/dL (8.4-10.2); CARBON DIOXIDE 24 mmol/L (22-30); CHLORIDE 96 mmol/L (98-107); GLUCOSE 157 mg/dL (75-110); POTASSIUM 5.2 mmol/L (3.6-5.0); SODIUM 135.3 mmol/L (137-145)
[2018-03-27] MEDS: LEVOTHYROXINE SODIUM 0.112 MG TABLET PO SCH (06:23)
[2018-03-27] MEDS: ASPIRIN 81 MG TABLET, CHEWABLE PO SCH (08:59)
[2018-03-27] MEDS: FLUTICASONE/SALMETEROL DISKUS 250-50 MCG/DOSE IH SCH ×2 (08:59→22:15)
[2018-03-27] MEDS: CALCIUM ACETATE 667 MG CAPSULE PO SCH ×3 (08:59→17:00)
[2018-03-27] MEDS: METOPROLOL TARTRATE 25 MG TABLET PO SCH ×2 (09:00→22:16)
[2018-03-27] MEDS: FOLIC ACID 1 MG TABLET PO SCH (09:00)
[2018-03-27] MEDS: DOCUSATE SODIUM 100 MG CAPSULE PO SCH ×2 (09:00→17:01)
[2018-03-27] MEDS: FERROUS SULFATE 325 MG TABLET PO SCH ×3 (09:00→17:01)
[2018-03-27] MEDS: MAGNESIUM OXIDE 400 MG TABLET PO SCH ×2 (09:01→17:01)
[2018-03-27] MEDS: MIDODRINE HCL 5 MG TABLET PO SCH ×3 (09:01→17:01)
[2018-03-27] MEDS: OXYCODONE-ACETAMINOPHEN 5-325 MG TABLET PO PRN ×2 (09:07→19:39)
[2018-03-27] MEDS: CLONAZEPAM 1 MG TABLET PO PRN ×2 (09:07→22:17)
[2018-03-27] MEDS: TIOTROPIUM BROMIDE DPI 5 CAP/KIT (18 MCG/CAP) IH SCH (09:08)
--- NOTE | 2018-03-27 12:32 | PDOC PROGRESS REPORT ---
Subjective Progress Note for:: 03/27/18 Subjective:: Patient is feeling fine. He denies any shortness of breath or chest pains. He admits that his lower extremity swelling has improved. There has been some problem with his PD catheter being slow to fail and is slow to drain. Did have consulted surgery care of Dr. Winter over the weekend who flush the PD catheter but the problem still continues. He is getting sufficient amount of ultrafiltration. With regards to placement, I discussed again with the patient today that no facility will accept him if he is on peritoneal dialysis but he was hoping that he will be accepted and he can still do the peritoneal dialysis on his own which I doubt that he can do it on his own. I talked her assortment planner Mira so that she can tell him the position of jail facility regarding this. Patient continues to decline being on hemodialysis telling me that his body cannot just tolerate hemodialysis. 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: A.FIB WITH RVR,HYPOCALCEMIA, CELLULITIS Physical Exam Vital Signs: Temp Pulse Resp BP Pulse Ox 98.8 F 85 18 130/78 H 98 03/27/18 10:54 03/27/18 10:54 03/27/18 10:54 03/27/18 10:54 03/27/18 10:54 Intake & Output 03/26/18 03/27/18 03/28/18 06:59 06:59 06:59 Intake Total 8027 61918 1500 Output Total 6100 6800 1650 Balance 1927 3341 -150 Weight 65.1 kg 64.2 kg 50 kg Exam: General appearance: PRESENT: no acute distress, cooperative, well-developed, well-nourished Head exam: PRESENT: atraumatic, normocephalic Eye exam: PRESENT: conjunctiva pale, PERRLA. ABSENT: scleral icterus Neck exam: ABSENT: JVD Respiratory exam: PRESENT: Diminished breath sounds. Occasional rales ante riorly ABSENT: Rhonchi, unlabored, wheezes Cardiovascular exam: PRESENT: Irregularly irregular rate rhythm -+S1, +S2. ABSENT: diastolic murmur, systolic murmur GI/Abdominal exam: PRESENT: normal bowel sounds, soft. PD catheter in place ABSENT: guarding, mass, tenderness Extremities exam: Decreased bilateral grade 1 lower extremity pitting edema Neurological exam: PRESENT: alert, awake, oriented to person, place and time. Skin exam: PRESENT: dry, warm, Results Laboratory Results: 03/27/18 04:01 03/27/18 04:01 03/27/18 03/27/18 04:01 04:01 WBC 7.5 RBC 2.76 L Hgb 8.6 L Hct 25.9 L MCV 94 MCH 31.2 MCHC 33.3 RDW 17.0 H Plt Count 145 L Sodium 135.3 L Potassium 5.2 H Chloride 96 L Carbon Dioxide 24 Anion Gap 15 BUN 100 H Creatinine 9.12 H Est GFR ( Amer) 7 L Est GFR (Non-Af Amer) 6 L Glucose 157 H Calcium 7.7 L Impressions: Chest X-Ray 03/16/18 15:05 IMPRESSION: Cardiomegaly with no shara pulmonary edema. Small right pleural effusion. Assessment & Plan - Diagnosis (1) ESRD (end stage renal disease) Is this a current diagnosis for this admission?: Yes Plan: Continue the same CAPD regimen. Is using 1.5% and 2.5% depending on the blood pressure. His edema is actually improved now. Due to the slow filling and draining of the PD catheter we will instill heparin on the next exchange. I discussed this with his nurse today. We will also give him more medications for his constipation as we will also affect the patient's PD fluid flow. (2) Bilateral lower leg cellulitis Is this a current diagnosis for this admission?: Yes Plan: Much improved. Not on antibiotics. (3) Hyperkalemia Is this a current diagnosis for this admission?: Yes Plan: On veltassa. (4) Severe hypocalcemia Is this a current diagnosis for this admission?: Yes Plan: Slowly improving (5) Weakness Is this a current diagnosis for this admission?: Yes Plan: Patient still unable to ambulate. Patient would need a jail facility but again is refusing to go on hemodialysis. Not sure what other options for placement does he have without switching to hemodialysis. Discussed the case with the assortment planner. (6) Anemia in chronic kidney disease (CKD) Is this a current diagnosis for this admission?: Yes Plan: Status post EGD and was found to have gastritis. Colonoscopy unable to be done. No evidence of active GI bleed. Continue Procrit weekly. (7) Atrial fibrillation with RVR Is this a current diagnosis for this admission?: Yes Plan: Now with controlled ventricular response. (8) Moderate to severe malnutrition Is this a current diagnosis for this admission?: Yes (9) Venous insufficiency of both lower extremities Is this a current diagnosis for this admission?: Yes (10) Constipation Qualifiers: Constipation type: unspecified constipation type Qualified Code(s): K59.00 - Constipation, unspecified Is this a current diagnosis for this admission?: Yes Plan: On Colace twice daily 100 mg each time. Will add MiraLAX 17 g p.o. daily. Lactulose as needed. (11) Hypotension Is this a current diagnosis for this admission?: Yes Plan: On midodrine. - Time Time with patient: Greater than 35 minutes
[2018-03-27] MEDS: POLYETHYLENE GLYCOL 3350 POWDER 17 GM/1 PACKET PO SCH (13:33)
--- NOTE | 2018-03-27 14:11 | PDOC PROGRESS REPORT ---
Subjective Progress Note for:: 03/27/18 Subjective:: Patient was seen and examined. Peritoneal dialysis catheter was clogged and declogged by surgery yesterday. His A. fib is better rate control. Swelling is improving. Potassium levels are also improving so as calcium levels. He is too weak to go home. 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: A.FIB WITH RVR,HYPOCALCEMIA, CELLULITIS Physical Exam Vital Signs: Temp Pulse Resp BP Pulse Ox 98.8 F 85 18 130/78 H 98 03/27/18 10:54 03/27/18 10:54 03/27/18 10:54 03/27/18 10:54 03/27/18 10:54 Intake & Output 03/26/18 03/27/18 03/28/18 06:59 06:59 06:59 Intake Total 8027 33557 1500 Output Total 6100 6800 1650 Balance 1927 3341 -150 Weight 143 lb 8.335 oz 141 lb 8.588 oz 110 lb 3.698 oz General appearance: PRESENT: no acute distress, cooperative Head exam: PRESENT: atraumatic, normocephalic Mouth exam: PRESENT: moist, neck supple Neck exam: ABSENT: meningismus, tenderness Respiratory exam: PRESENT: clear to auscultation tata. ABSENT: accessory muscle use Cardiovascular exam: PRESENT: irregular rhythm Pulses: PRESENT: normal radial pulses GI/Abdominal exam: PRESENT: normal bowel sounds, soft Rectal exam: PRESENT: deferred Extremities exam: PRESENT: pedal edema. ABSENT: joint swelling Neurological exam: PRESENT: alert, awake, oriented to person, oriented to place, oriented to time, oriented to situation Results Laboratory Results: 03/27/18 04:01 03/27/18 04:01 03/27/18 03/27/18 04:01 04:01 WBC 7.5 RBC 2.76 L Hgb 8.6 L Hct 25.9 L MCV 94 MCH 31.2 MCHC 33.3 RDW 17.0 H Plt Count 145 L Sodium 135.3 L Potassium 5.2 H Chloride 96 L Carbon Dioxide 24 Anion Gap 15 BUN 100 H Creatinine 9.12 H Est GFR ( Amer) 7 L Est GFR (Non-Af Amer) 6 L Glucose 157 H Calcium 7.7 L Impressions: Chest X-Ray 03/16/18 15:05 IMPRESSION: Cardiomegaly with no shara pulmonary edema. Small right pleural effusion. Assessment & Plan - Diagnosis (1) ESRD (end stage renal disease) Is this a current diagnosis for this admission?: Yes Plan: on Peritoneal dialysis per nephrology. (2) Anemia in chronic kidney disease (CKD) Is this a current diagnosis for this admission?: Yes Plan: EGD shows gastritis. Colonoscopy was not done because of incomplete prep. H&H stable (3) Atrial fibrillation with RVR Is this a current diagnosis for this admission?: Yes Plan: rate controlled (4) Hypocalcemia Is this a current diagnosis for this admission?: Yes Plan: Continue supplements (5) Hyperkalemia Is this a current diagnosis for this admission?: Yes Plan: On Veltassa and peritoneal dialysis. monitor K levels (6) Hypotension Is this a current diagnosis for this admission?: Yes Plan: On midodrine. improved. - Plan Summary Plan Summary: Consult physical therapy and internet media planner
[2018-03-27] MEDS: PATIROMER 8.4 GM SUSP PACKET PO SCH (17:01)
[2018-03-27] MEDS: LACTULOSE SYRUP 20 GM/30 ML UDCUP PO PRN (17:01)
[2018-03-27] MEDS: ATORVASTATIN CALCIUM 10 MG TABLET PO SCH (22:17)
[2018-03-27] MEDS: ZOLPIDEM TARTRATE 5 MG TABLET PO PRN (22:21)
[2018-03-28] MEDS: LEVOTHYROXINE SODIUM 0.112 MG TABLET PO SCH (06:52)
[2018-03-28] MEDS: OXYCODONE-ACETAMINOPHEN 5-325 MG TABLET PO PRN ×2 (06:56→17:44)
[2018-03-28] MEDS: CALCIUM ACETATE 667 MG CAPSULE PO SCH ×3 (08:59→17:45)
[2018-03-28] MEDS ORDERED: HEPARIN SOD (PORCINE) 5,000 UNIT/ML 1 ML SYRINGE ONE (09:58)
[2018-03-28] MEDS ORDERED: HEPARIN SOD (PORCINE) 1,000 UNIT/ML 10 ML VIAL ONE (09:59)
[2018-03-28] MEDS: FERROUS SULFATE 325 MG TABLET PO SCH ×3 (11:05→17:44)
[2018-03-28] MEDS: POLYETHYLENE GLYCOL 3350 POWDER 17 GM/1 PACKET PO SCH (11:05)
[2018-03-28] MEDS: FOLIC ACID 1 MG TABLET PO SCH (11:05)
[2018-03-28] MEDS: DOCUSATE SODIUM 100 MG CAPSULE PO SCH ×2 (11:05→17:44)
[2018-03-28] MEDS: MAGNESIUM OXIDE 400 MG TABLET PO SCH ×2 (11:05→17:44)
[2018-03-28] MEDS: CLONAZEPAM 1 MG TABLET PO PRN (11:05)
[2018-03-28] MEDS: ASPIRIN 81 MG TABLET, CHEWABLE PO SCH (11:06)
[2018-03-28] MEDS: METOPROLOL TARTRATE 25 MG TABLET PO SCH ×2 (11:06→22:05)
[2018-03-28] MEDS: LACTULOSE SYRUP 20 GM/30 ML UDCUP PO PRN (11:06)
[2018-03-28] MEDS: MIDODRINE HCL 5 MG TABLET PO SCH ×3 (11:07→17:46)
[2018-03-28] MEDS: FLUTICASONE/SALMETEROL DISKUS 250-50 MCG/DOSE IH SCH ×2 (11:08→22:05)
[2018-03-28] MEDS: TIOTROPIUM BROMIDE DPI 5 CAP/KIT (18 MCG/CAP) IH SCH (11:08)
[2018-03-28] MEDS ORDERED: GENTAMICIN SULFATE 0.1% OINTMENT 15 GM TP PRN (11:44)
[2018-03-28] MEDS ORDERED: HEPARIN SOD (PORCINE) 1,000 UNIT/ML 10 ML VIAL INJ ONE (11:45)
--- NOTE | 2018-03-28 12:22 | PDOC PROGRESS REPORT ---
Subjective Progress Note for:: 03/28/18 Subjective:: Patient was seen and examined. Patient is stable. His Bhavna del angel is rate controlled. He agreed to hemodialysis so he can go to rehab. Dialysis catheter will be placed tomorrow. 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: A.BENNY WITH RVR,HYPOCALCEMIA, CELLULITIS Physical Exam Vital Signs: Temp Pulse Resp BP Pulse Ox 97.9 F 98 14 115/74 100 03/28/18 08:00 03/28/18 08:30 03/28/18 08:00 03/28/18 08:30 03/28/18 08:00 Intake & Output 03/27/18 03/28/18 03/29/18 06:59 06:59 06:59 Intake Total 53974 5787 1500 Output Total 6800 5250 2100 Balance 3341 537 -600 Weight 141 lb 8.588 oz 136 lb 7.458 oz 128 lb 4.944 oz General appearance: PRESENT: no acute distress, cooperative Head exam: PRESENT: atraumatic, normocephalic Mouth exam: PRESENT: moist, neck supple Neck exam: ABSENT: meningismus, tenderness Respiratory exam: PRESENT: clear to auscultation tata. ABSENT: accessory muscle use Cardiovascular exam: PRESENT: irregular rhythm Pulses: PRESENT: normal radial pulses GI/Abdominal exam: PRESENT: normal bowel sounds, soft Rectal exam: PRESENT: deferred Neurological exam: PRESENT: alert, awake, oriented to person, oriented to place, oriented to time, oriented to situation Results Laboratory Results: 03/27/18 04:01 03/27/18 04:01 Impressions: Chest X-Ray 03/16/18 15:05 IMPRESSION: Cardiomegaly with no shara pulmonary edema. Small right pleural effusion. Assessment & Plan - Diagnosis (1) ESRD (end stage renal disease) Is this a current diagnosis for this admission?: Yes Plan: On peritoneal dialysis. Will have dialysis catheter placed tomorrow and will be switched on hemodialysis so he can go to rehab. (2) Anemia in chronic kidney disease (CKD) Is this a current diagnosis for this admission?: Yes Plan: EGD shows gastritis. Colonoscopy was not done because of incomplete prep. H&H stable (3) Atrial fibrillation with RVR Is this a current diagnosis for this admission?: Yes Plan: rate controlled (4) Hypocalcemia Is this a current diagnosis for this admission?: Yes Plan: Continue supplements (5) Hyperkalemia Is this a current diagnosis for this admission?: Yes Plan: On Veltassa and peritoneal dialysis. Will be on hemodialysis once dialysis catheter is placed tomorrow. Monitor K levels (6) Hypotension Is this a current diagnosis for this admission?: Yes Plan: On midodrine. improved.
[2018-03-28] MEDS: PATIROMER 8.4 GM SUSP PACKET PO SCH (17:21)
--- NOTE | 2018-03-28 20:57 | PDOC PROGRESS REPORT ---
Subjective Progress Note for:: 03/28/18 Subjective:: I saw the patient early this morning at around 9:45 AM because the nurse called me having issues with feeling after draining his PD fluid. I went in and flush his peritoneal dialysis catheter myself. I did not have any issues or problems with flushing his PD catheter. At that point I instructed his nurse to just change the PD fluid bag and to put heparin as I ordered. I went back this afternoon to check on how his peritoneal dialysis is doing. After heparin was placed in his next PD fluid solution the nurse did not have any more problems with filling nor draining. It is now going on his monthly without much issues or problems. Dr. Smith talked with the patient and his PermCath placement is going to be done tomorrow. Once the PermCath is placed we will start the patient on hemodialysis and stop peritoneal dialysis. We informed the shoe planner that this will happen so that they can arrange placement to fdc facility which the patient agreed to. 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: A.FIB WITH RVR,HYPOCALCEMIA, RENAL FAILURE Physical Exam Vital Signs: Temp Pulse Resp BP Pulse Ox 97.8 F 86 17 118/64 94 03/28/18 16:00 03/28/18 17:00 03/28/18 16:00 03/28/18 17:00 03/28/18 16:00 Intake & Output 03/27/18 03/28/18 03/29/18 06:59 06:59 06:59 Intake Total 44691 5787 3820 Output Total 6800 5250 4300 Balance 3341 537 -480 Weight 64.2 kg 61.9 kg 57.7 kg Exam: General appearance: PRESENT: no acute distress, cooperative, well-developed, well-nourished Head exam: PRESENT: atraumatic, normocephalic Eye exam: PRESENT: conjunctiva pale, PERRLA. ABSENT: scleral icterus Neck exam: ABSENT: JVD Respiratory exam: PRESENT: Diminished breath sounds. ABSENT: crackles, rales, rhonchi, unlabored, wheezes Cardiovascular exam: PRESENT: Irregularly irregular rate rhythm -+S1, +S2. ABSENT: diastolic murmur, systolic murmur GI/Abdominal exam: PRESENT: normal bowel sounds, soft. ABSENT: guarding, mass, tenderness Extremities exam: Grade 1 pitting edema Neurological exam: PRESENT: alert, awake, oriented to person, place and time. Skin exam: PRESENT: dry, warm, decrease it with a mild on lower extremities Cardiovascular exam: PRESENT: +S1, +S2, systolic murmur GI/Abdominal exam: PRESENT: distended, normal bowel sounds, soft. ABSENT: organ omegaly, tenderness Results Laboratory Results: 03/27/18 04:01 03/27/18 04:01 Impressions: Chest X-Ray 03/16/18 15:05 IMPRESSION: Cardiomegaly with no shara pulmonary edema. Small right pleural effusion. Assessment & Plan - Diagnosis (1) ESRD (end stage renal disease) Is this a current diagnosis for this admission?: Yes Plan: Continue the same CAPD regimen. Is using 1.5% and 2.5% depending on the blood pressure. As mentioned above I flushed his PD catheter without difficulty today. Her going to continue the same CAPD regimen until we get a PermCath place. After which Rivinus switch to hemodialysis in preparation for a fdc facility placement. We will keep his PD catheter in place just in case he regains back his strength and is able to go home to do peritoneal dialysis again. (2) Bilateral lower leg cellulitis Is this a current diagnosis for this admission?: Yes Plan: Much improved. Not on antibiotics. (3) Hyperkalemia Is this a current diagnosis for this admission?: Yes Plan: On veltassa. (4) Severe hypocalcemia Is this a current diagnosis for this admission?: Yes Plan: Slowly improving (5) Weakness Is this a current diagnosis for this admission?: Yes Plan: Patient still unable to ambulate. Patient would need a fdc facility so he will switch to hemodialysis for placement. (6) Anemia in chronic kidney disease (CKD) Is this a current diagnosis for this admission?: Yes Plan: Status post EGD and was found to have gastritis. Colonoscopy unable to be done. No evidence of active GI bleed. Continue Procrit weekly. (7) Atrial fibrillation with RVR Is this a current diagnosis for this admission?: Yes Plan: Now with controlled ventricular response. (8) Moderate to severe malnutrition Is this a current diagnosis for this admission?: Yes (9) Venous insufficiency of both lower extremities Is this a current diagnosis for this admission?: Yes (10) Constipation Qualifiers: Constipation type: unspecified constipation type Qualified Code(s): K59.00 - Constipation, unspecified Is this a current diagnosis for this admission?: Yes Plan: On Colace twice daily 100 mg each time. Will add MiraLAX 17 g p.o. daily. Lactulose as needed. (11) Hypotension Is this a current diagnosis for this admission?: Yes Plan: On midodrine. - Time Time with patient: Greater than 35 minutes
[2018-03-28] MEDS ORDERED: EPOETIN ALFA INJ 40000 UNIT/1 ML (RENAL) SUBCUT ONE (22:00)
[2018-03-28] MEDS: ZOLPIDEM TARTRATE 5 MG TABLET PO PRN (22:05)
[2018-03-28] MEDS: ATORVASTATIN CALCIUM 10 MG TABLET PO SCH (22:06)
[2018-03-29] MEDS: CLONAZEPAM 1 MG TABLET PO PRN ×2 (00:19→19:45)
[2018-03-29 06:03] LABS: HEMATOCRIT 27.8 % (37.9-51.0); HEMOGLOBIN 9.1 g/dL (13.5-17.0); MEAN CORPUSCULAR HGB CONC 32.6 g/dL (32.0-36.0); MEAN CORPUSCULAR VOLUME 95 fl (80-97); PLATELET COUNT 139 10^3/uL (150-450); RED BLOOD COUNT 2.93 10^6/uL (4.35-5.55); RED CELL DISTRIBUTION WIDTH 18.9 % (11.5-14.0); WHITE BLOOD COUNT 6.9 10^3/uL (4.0-10.5)
[2018-03-29] MEDS: LEVOTHYROXINE SODIUM 0.112 MG TABLET PO SCH (06:13)
[2018-03-29] MEDS: OXYCODONE-ACETAMINOPHEN 5-325 MG TABLET PO PRN ×3 (06:13→19:35)
[2018-03-29 06:25] LABS: ANION GAP 15 (5-19); BLOOD UREA NITROGEN 105 mg/dL (7-20); CALCIUM 7.3 mg/dL (8.4-10.2); CARBON DIOXIDE 25 mmol/L (22-30); CHLORIDE 97 mmol/L (98-107); GLUCOSE 142 mg/dL (75-110); POTASSIUM 4.9 mmol/L (3.6-5.0); SODIUM 137.4 mmol/L (137-145)
[2018-03-29] MEDS ORDERED: LIDOCAINE 0.5% INJ-PF (5 MG/ML) 50 ML SDV ONE (07:19)
[2018-03-29] MEDS ORDERED: BACITRACIN INJ 50,000 UNIT VIAL ONE (07:20)
[2018-03-29] MEDS ORDERED: CEFAZOLIN INJ 1 GM VIAL ONE (08:09)
[2018-03-29] MEDS ORDERED: MIDAZOLAM 2 MG/2 ML INJ ONE (08:09)
[2018-03-29] MEDS ORDERED: FENTANYL CITRATE INJ/PF 100 MCG/2 ML AMPUL ONE (08:09)
[2018-03-29] MEDS: CALCIUM ACETATE 667 MG CAPSULE PO SCH ×4 (08:19→18:50)
--- NOTE | 2018-03-29 09:33 | RADIOLOGY REPORT (SQ) ---
EXAM DESCRIPTION: TUNNELED CENTRAL LINE; GUIDANCE FLUOROSCOPIC COMPLETED DATE/TIME: 03/29/2018 9:13 am REASON FOR STUDY: NEED FOR VASCULAR ACCESS COMPARISON: Chest films 03/16/2018 FLUOROSCOPY TIME: Less than 5 seconds 15 series of digital images saved to PACS. TECHNIQUE: Intra-operative images acquired during surgical procedure to evaluate progress. NUMBER OF IMAGES: 15 series of digital images LIMITATIONS: None. FINDINGS: Intra procedural imaging and fluoro during placement of a right-sided central venous dialy sis catheter with the tip in the right atrium. Please see the operative report for further details IMPRESSION: Intra procedural imaging and fluoro COMMENT: Quality ID [id number]: Final reports for procedures using fluoroscopy that document radiation exp osure indices, or exposure time and number of fluorographic images (if radiation exposure indices are not available) Please consult full operative report of the attending physician for description of the procedure. TECHNICAL DOCUMENTATION: JOB ID: [id number] [employer]- All Rights Reserved Reading location - IP/workstation name: [email or web address]
--- NOTE | 2018-03-29 09:33 | RADIOLOGY REPORT (SQ) ---
EXAM DESCRIPTION: TUNNELED CENTRAL LINE; GUIDANCE FLUOROSCOPIC COMPLETED DATE/TIME: 03/29/2018 9:13 am REASON FOR STUDY: NEED FOR VASCULAR ACCESS COMPARISON: Chest films 03/16/2018 FLUOROSCOPY TIME: Less than 5 seconds 15 series of digital images saved to PACS. TECHNIQUE: Intra-operative images acquired during surgical procedure to evaluate progress. NUMBER OF IMAGES: 15 series of digital images LIMITATIONS: None. FINDINGS: Intra procedural imaging and fluoro during placement of a right-sided central venous dialy sis catheter with the tip in the right atrium. Please see the operative report for further details IMPRESSION: Intra procedural imaging and fluoro COMMENT: Quality ID [id number]: Final reports for procedures using fluoroscopy that document radiation exp osure indices, or exposure time and number of fluorographic images (if radiation exposure indices are not available) Please consult full operative report of the attending physician for description of the procedure. TECHNICAL DOCUMENTATION: JOB ID: [id number] [employer]- All Rights Reserved Reading location - IP/workstation name: [email or web address]
[2018-03-29] MEDS ORDERED: EPOETIN ALFA INJ 20000 UNIT/1 ML VIAL (RENAL) IV PRN (09:38)
[2018-03-29] MEDS ORDERED: NORMAL SALINE 1000 ML 1,000 ML IV PRN (09:38)
[2018-03-29] MEDS: LACTULOSE SYRUP 20 GM/30 ML UDCUP PO PRN (09:55)
[2018-03-29] MEDS: DOCUSATE SODIUM 100 MG CAPSULE PO SCH ×2 (09:56→18:48)
[2018-03-29] MEDS: ASPIRIN 81 MG TABLET, CHEWABLE PO SCH (09:56)
[2018-03-29] MEDS: FLUTICASONE/SALMETEROL DISKUS 250-50 MCG/DOSE IH SCH ×2 (09:56→21:06)
[2018-03-29] MEDS: POLYETHYLENE GLYCOL 3350 POWDER 17 GM/1 PACKET PO SCH (09:56)
[2018-03-29] MEDS: FERROUS SULFATE 325 MG TABLET PO SCH ×3 (09:56→18:48)
[2018-03-29] MEDS: FOLIC ACID 1 MG TABLET PO SCH (09:56)
[2018-03-29] MEDS: MAGNESIUM OXIDE 400 MG TABLET PO SCH ×2 (09:56→18:48)
[2018-03-29] MEDS: GENTAMICIN SULFATE 0.1% OINTMENT 15 GM TP SCH (09:57)
[2018-03-29] MEDS: MIDODRINE HCL 5 MG TABLET PO SCH ×3 (09:58→18:49)
[2018-03-29] MEDS ORDERED: EPOETIN ALFA INJ 40000 UNIT/1 ML (RENAL) SUBCUT SCH (10:00)
[2018-03-29] MEDS: TIOTROPIUM BROMIDE DPI 5 CAP/KIT (18 MCG/CAP) IH SCH (12:23)
--- NOTE | 2018-03-29 17:56 | PDOC PROGRESS REPORT ---
Subjective Progress Note for:: 03/29/18 Subjective:: Patient was seen and examined. Patient is stable. His Bhavna del angel is rate controlled. He is status post permanent hemodialysis catheter placement and was seen on dialysis getting his first dialysis session. 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, RENAL FAILURE Physical Exam Vital Signs: Temp Pulse Resp BP Pulse Ox 98.0 F 112 H 20 144/63 H 92 03/29/18 13:21 03/29/18 13:21 03/29/18 13:21 03/29/18 13:21 03/29/18 13:21 Intake & Output 03/28/18 03/29/18 03/30/18 06:59 06:59 06:59 Intake Total 5787 7707 1887 Output Total 5250 7700 2000 Balance 537 88 -113 Weight 136 lb 7.458 oz 132 lb 11.492 oz General appearance: PRESENT: no acute distress, cooperative, thin Head exam: PRESENT: atraumatic, normocephalic Eye exam: ABSENT: conjunctival injection, nystagmus Mouth exam: PRESENT: moist, neck supple Neck exam: ABSENT: meningismus, tenderness Respiratory exam: PRESENT: accessory muscle use, clear to auscultation tata Cardiovascular exam: PRESENT: irregular rhythm Pulses: PRESENT: normal radial pulses GI/Abdominal exam: PRESENT: normal bowel sounds, soft. ABSENT: tenderness Rectal exam: PRESENT: deferred Neurological exam: PRESENT: alert, awake, oriented to person, oriented to place, oriented to time, oriented to situation Results Laboratory Results: 03/29/18 05:13 03/29/18 05:13 03/29/18 03/29/18 05:13 05:13 WBC 6.9 RBC 2.93 L Hgb 9.1 L Hct 27.8 L MCV 95 MCH 31.0 MCHC 32.6 RDW 18.9 H Plt Count 139 L Sodium 137.4 Potassium 4.9 Chloride 97 L Carbon Dioxide 25 Anion Gap 15 BUN 105 H Creatinine 9.46 H Est GFR ( Amer) 7 L Est GFR (Non-Af Amer) 5 L Glucose 142 H Calcium 7.3 L Impressions: Chest X-Ray 03/16/18 15:05 IMPRESSION: Cardiomegaly with no shara pulmonary edema. Small right pleural effusion. Central Venous Line 03/29/18 00:00 IMPRESSION: Intra procedural imaging and fluoro Guidance Fluoroscopy 03/29/18 00:00 IMPRESSION: Intra procedural imaging and fluoro Assessment & Plan - Diagnosis (1) ESRD (end stage renal disease) Is this a current diagnosis for this admission?: Yes Plan: Was on peritoneal dialysis. Now dialysis catheter placed today. He was seen on dialysis today getting his first HD session. (2) Anemia in chronic kidney disease (CKD) Is this a current diagnosis for this admission?: Yes Plan: EGD shows gastritis. Colonoscopy was not done because of incomplete prep. H&H stable (3) Atrial fibrillation with RVR Is this a current diagnosis for this admission?: Yes Plan: Rate not well controlled. Will increase metoprolol dose. (4) Hypocalcemia Is this a current diagnosis for this admission?: Yes Plan: Continue supplements (5) Hyperkalemia Is this a current diagnosis for this admission?: Yes Plan: On Veltassa and was peritoneal dialysis, now on hemodialysis. Monitor K levels (6) Hypotension Is this a current diagnosis for this admission?: Yes Plan: On midodrine. improved.
[2018-03-29] MEDS: METOPROLOL TARTRATE 25 MG TABLET PO SCH ×2 (18:41→21:07)
[2018-03-29] MEDS ORDERED: TUBERCULIN,PURIF.PROT.DERIV. 5 TU/0.1 ML TEST 1 ML VIAL ID ONE (19:00)
--- NOTE | 2018-03-29 19:06 | PDOC PROGRESS REPORT ---
Subjective Progress Note for:: 03/29/18 Subjective:: Patient underwent PermCath placement today by Dr. Smith and it was uneventful. Afterwards we started him on his first hemodialysis treatment. I saw him during the dialysis and he seems to be fine. We started him today with just 2-hour of dialysis treatment which he tolerated without much problems. We will stop peritoneal dialysis at this point and he will be doing hemodialysis going forward. The plan is for him to go to usp facility and while there he will receive hemodialysis. Patient is still hopeful that he can go back to peritoneal dialysis which I told him is really dependent if he can regain back his strength to if he can be independent to do it at home. So we will keep his PD catheter for now until we determine if he is going to be on hemodialysis for long-term or not. 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: A.FIB WITH RVR,HYPOCALCEMIA, RENAL FAILURE Physical Exam Vital Signs: Temp Pulse Resp BP Pulse Ox 98.0 F 112 H 20 144/63 H 92 03/29/18 13:21 03/29/18 13:21 03/29/18 13:21 03/29/18 13:21 03/29/18 13:21 Intake & Output 03/28/18 03/29/18 03/30/18 06:59 06:59 06:59 Intake Total 5787 7788 1887 Output Total 5250 7700 2000 Balance 537 88 -113 Weight 61.9 kg 60.2 kg Vitals during dialysis treatment: Blood pressure 128/68, pulse rate of 95, blood flow rate of 250 mL/min and dialysate flow rate of 800 ml/min. Exam: General appearance: PRESENT: no acute distress, cooperative, well-developed, well-nourished Head exam: PRESENT: atraumatic, normocephalic Eye exam: PRESENT: conjunctiva pale, PERRLA. ABSENT: scleral icterus Neck exam: ABSENT: JVD Respiratory exam: PRESENT: Diminished breath sounds. ABSENT: crackles, rales, rhonchi, unlabored, wheezes Cardiovascular exam: PRESENT: Irregularly irregular rate rhythm -+S1, +S2. ABSENT: diastolic murmur, systolic murmur GI/Abdominal exam: PRESENT: normal bowel sounds, soft. ABSENT: guarding, mass, tenderness Extremities exam: Unchanged grade 1 bilateral lower extremity pitting edema Neurological exam: PRESENT: alert, awake, oriented to person, place and time. Skin exam: PRESENT: dry, warm, Cardiovascular exam: PRESENT: +S1, +S2, systolic murmur GI/Abdominal exam: PRESENT: distended, normal bowel sounds, soft. ABSENT: organomegaly, tenderness Results Laboratory Results: 03/29/18 05:13 03/29/18 05:13 03/29/18 03/29/18 05:13 05:13 WBC 6.9 RBC 2.93 L Hgb 9.1 L Hct 27.8 L MCV 95 MCH 31.0 MCHC 32.6 RDW 18.9 H Plt Count 139 L Sodium 137.4 Potassium 4.9 Chloride 97 L Carbon Dioxide 25 Anion Gap 15 BUN 105 H Creatinine 9.46 H Est GFR ( Amer) 7 L Est GFR (Non-Af Amer) 5 L Glucose 142 H Calcium 7.3 L Impressions: Chest X-Ray 03/16/18 15:05 IMPRESSION: Cardiomegaly with no shara pulmonary edema. Small right pleural effusion. Central Venous Line 03/29/18 00:00 IMPRESSION: Intra procedural imaging and fluoro Guidance Fluoroscopy 03/29/18 00:00 IMPRESSION: Intra procedural imaging and fluoro Assessment & Plan - Diagnosis (1) ESRD (end stage renal disease) Is this a current diagnosis for this admission?: Yes Plan: We did dialysis today for 2 hours, using the patient's PermCath, with 2 potassium bath, blood flow rate of 250 mL per minute, dialysate flow rate of 800 mL per minute, ultrafiltration 1.5 L to 2 L as tolerated, no heparin and Procrit with 20,000 units during dialysis intravenously. Patient was monitored throughout dialysis treatment and did not have any problems or complaints, He tolerated dialysis well. (2) Bilateral lower leg cellulitis Is this a current diagnosis for this admission?: Yes Plan: Much improved. Not on antibiotics. (3) Hyperkalemia Is this a current diagnosis for this admission?: Yes Plan: On veltassa. If his potassium becomes better controlled while he is on hemodialysis we will stop veltassa. (4) Severe hypocalcemia Is this a current diagnosis for this admission?: Yes Plan: Corrected calcium is actually normal at 8.82. (5) Weakness Is this a current diagnosis for this admission?: Yes Plan: Patient still unable to ambulate. Patient would need a usp facility so he will switch to hemodialysis for placement. (6) Anemia in chronic kidney disease (CKD) Is this a current diagnosis for this admission?: Yes Plan: Status post EGD and was found to have gastritis. Colonoscopy unable to be done. No evidence of active GI bleed. Continue Procrit during dialysis. (7) Atrial fibrillation with RVR Is this a current diagnosis for this admission?: Yes Plan: Now with controlled ventricular response. (8) Moderate to severe malnutrition Is this a current diagnosis for this admission?: Yes (9) Venous insufficiency of both lower extremities Is this a current diagnosis for this admission?: Yes (10) Constipation Qualifiers: Constipation type: unspecified constipation type Qualified Code(s): K59.00 - Constipation, unspecified Is this a current diagnosis for this admission?: Yes Plan: On Colace twice daily 100 mg each time. Will add MiraLAX 17 g p.o. daily. Lactulose as needed. (11) Hypotension Is this a current diagnosis for this admission?: Yes Plan: On midodrine. - Time Time with patient: 15-25 minutes
[2018-03-29] MEDS: PATIROMER 8.4 GM SUSP PACKET PO SCH ×2 (20:57→20:58)
[2018-03-29] MEDS: ATORVASTATIN CALCIUM 10 MG TABLET PO SCH (21:07)
[2018-03-30] MEDS: LEVOTHYROXINE SODIUM 0.112 MG TABLET PO SCH (05:07)
[2018-03-30] MEDS: OXYCODONE-ACETAMINOPHEN 5-325 MG TABLET PO PRN ×3 (06:19→20:02)
[2018-03-30] MEDS: CALCIUM ACETATE 667 MG CAPSULE PO SCH ×3 (08:38→16:38)
[2018-03-30] MEDS: CLONAZEPAM 1 MG TABLET PO PRN (08:38)
--- NOTE | 2018-03-30 08:49 | Operative Report ---
Operative Report DATE OF SURGERY: 03/29/18 PREOPERATIVE DIAGNOSIS: End-stage renal disease on dialysis. POSTOPERATIVE DIAGNOSIS: End-stage renal disease on dialysis. OPERATION: 1. Ultrasound evaluation of the right internal jugular vein. 2. Insertion of PermCath via real-time access in the right internal jugular vein. 3. Angiogram and interpretation. SURGEON: RAMU WHITLOCK INDEPENDENT CONTRACTOR: None. ANESTHESIA: Moderate Sedation TISSUE REMOVED OR ALTERED: Not applicable. COMPLICATIONS: None. ESTIMATED BLOOD LOSS: 5 mL. INTRAOPERATIVE FINDINGS: Of a satisfactory and fairly robust right internal jugular vein, estimated to be 1.26 cm in diameter. Satisfactory access under ultrasound guidance. Satisfactory position of PermCath with the tip just down in the right atrial pool. Easy egress of blood and ingress of heparinized solution. Angiogram demonstrates smooth flow of contrast through the right atrium, ventricle and pulmonary outflow tract. PROCEDURE: After obtaining informed consent, the patient was taken to the [Railcar Brake Operator] and positioned supine. The [right neck] and chest were prepared with chlorhexidine and draped out with sterile linen. After the " universal timeout", in which it was verified that the patient continued to receive antibiotic, the procedure commenced. A steriley sheathed ultrasound probe was used to evaluate the [right internal jugular] vein. Local anesthesia was infiltrated adjacent to the probe. Access into the [right internal jugular] vein was obtained using a micropuncture needle, followed by micropuncture wire and then a micropuncture catheter. This was followed by introduction of a 0.035 guidewire the tip of which was placed down into the inferior vena cava . A 23 cm long Perm catheter] was now positioned over the chest and an exit site marked and locally anesthetized ,the catheter was placed between the 2 incisions. Proximally, the catheter was now positioned using a peel-away sheath, after dilation. Easy ingress of heparinized solution and egress of blood obtained through both ports. A completion angiogram was done by injecting contrast. The findings were as dictated. The neck incision was now closed using interrupted 3-0 PDS to the subcutaneous tissues, the catheter was anchored at the exit site using 3-0 PDS. A Biopatch device was now placed adjacent to the catheter. Dressings were applied and the procedure concluded. Copies of the dictated operative report for Dr. Ramu Smith MD.concluded. Copies of the dictated operative report for Dr. Ramu Smith MD.
[2018-03-30] MEDS: ASPIRIN 81 MG TABLET, CHEWABLE PO SCH (10:24)
[2018-03-30] MEDS: MAGNESIUM OXIDE 400 MG TABLET PO SCH ×2 (10:24→17:13)
[2018-03-30] MEDS: FOLIC ACID 1 MG TABLET PO SCH (10:24)
[2018-03-30] MEDS: LACTULOSE SYRUP 20 GM/30 ML UDCUP PO PRN (10:24)
[2018-03-30] MEDS: METOPROLOL TARTRATE 25 MG TABLET PO SCH (10:25)
[2018-03-30] MEDS: DOCUSATE SODIUM 100 MG CAPSULE PO SCH ×2 (10:25→17:13)
[2018-03-30] MEDS: GENTAMICIN SULFATE 0.1% OINTMENT 15 GM TP SCH (10:26)
[2018-03-30] MEDS: FERROUS SULFATE 325 MG TABLET PO SCH ×3 (10:26→17:13)
[2018-03-30] MEDS: FLUTICASONE/SALMETEROL DISKUS 250-50 MCG/DOSE IH SCH (10:26)
[2018-03-30] MEDS: POLYETHYLENE GLYCOL 3350 POWDER 17 GM/1 PACKET PO SCH (10:26)
[2018-03-30] MEDS: MIDODRINE HCL 5 MG TABLET PO SCH ×3 (10:27→17:13)
[2018-03-30] MEDS: TIOTROPIUM BROMIDE DPI 5 CAP/KIT (18 MCG/CAP) IH SCH (10:27)
[2018-03-30 12:38] LABS: HEPATITS B SURFACE ANTIGEN Negative (Negative)
--- NOTE | 2018-03-30 13:42 | PDOC TRANSFER SUMMARY ---
General - Admit/Disc Date/PCP Admission Date/Primary Care Provider: 03/16/18 16:48 Basil ROMERO MD Discharge Date: 03/30/18 - Discharge Diagnosis (1) ESRD (end stage renal disease) Is this a current diagnosis for this admission?: Yes (2) Anemia in chronic kidney disease (CKD) Is this a current diagnosis for this admission?: Yes (3) Atrial fibrillation with RVR Is this a current diagnosis for this admission?: Yes (4) Hypocalcemia Is this a current diagnosis for this admission?: Yes (5) Hyperkalemia Is this a current diagnosis for this admission?: Yes (6) Hypotension Is this a current diagnosis for this admission?: Yes - Additional Information Resuscitation Status: Full Code Discharge Diet: Cardiac Discharge Activity: Activity As Tolerated Prescriptions: Clonazepam [Klonopin 1 mg Tablet] 0.5 mg PO Q12HP PRN #4 tablet PRN Reason: Oxycodone HCl/Acetaminophen [Percocet 5-325 mg Tablet] 2 tab PO Q6HP PRN #8 tablet PRN Reason: Home Medications: Aspirin [Aspirin 81 mg Chewable Tablet] 81 mg PO DAILY 02/16/18 Atorvastatin Calcium [Lipitor 10 mg Tablet] 10 mg PO QHS 02/16/18 Calcium Acetate [Phoslo 667 mg Capsule] 667 mg PO MEALS 02/16/18 Fluticasone/Salmeterol [Advair HFA 115-21 mcg Inhaler] 2 puff IH Q12 02/16/18 Folic Acid [Folvite 1 mg Tablet] 1 mg PO DAILY 02/16/18 Levothyroxine Sodium 112 mcg PO Q6AM 02/16/18 Megestrol Acetate 20 ml PO DAILY 02/16/18 Tiotropium Tangent [Spiriva Respimat] 1 puff IH Q12 02/16/18 Vitamin B Complex 1 tab PO DAILY 02/16/18 Zolpidem Tartrate [Ambien] 10 mg PO HSP PRN 02/16/18 Ferrous Sulfate [Iron] 325 mg PO TID 02/17/18 Lactulose 10 ml PO BID PRN 02/17/18 Melatonin/Pyridoxine HCl (B6) [Melatonin 5 mg Tablet] 1 each PO HSP PRN 02/17/18 Trazodone HCl [Desyrel 50 mg Tablet] 50 mg PO HSP PRN #30 tablet 02/23/18 Clonazepam [Klonopin 1 mg Tablet] 0.5 mg PO Q12HP PRN #4 tablet 03/30/18 Docusate Sodium [Colace 100 mg Capsule] 100 mg PO BID capsule 03/30/18 Epoetin Andres [Procrit Inj 40,000 Unit/1 ml Vial (Renal)] 40,000 unit SUBCUT We vial 03/30/18 Gentamicin Sulfate [Garamycin 0.1% Ointment 15 gm] 1 applic TP DAILY tube 03/30/18 Ipratropium/Albuterol Sulfate [Duoneb 3 ml Ampul] 3 ml NEB RTQ4HP PRN vial.neb 03/30/18 Lactulose [Cephulac Syrup 20 gm/30 ml Udcup] 10 gm PO Q12 PRN udc 03/30/18 Magnesium Oxide [Mag-Ox 400 mg Tablet] 400 mg PO BID tablet 03/30/18 Metoprolol Tartrate [Lopressor 25 mg Tablet] 25 mg PO Q12 tablet 03/30/18 Midodrine HCl [Proamatine 5 mg Tablet] 10 mg PO TID tablet 03/30/18 Oxycodone HCl/Acetaminophen [Percocet 5-325 mg Tablet] 2 tab PO Q6HP PRN #8 tablet 03/30/18 Polyethylene Glycol 3350 [Miralax Powder 17 gm/Packet] 17 gm PO DAILY powd.pack 03/30/18 History of Present Illness Admission Date/PCP: 03/16/18 16:48 Basil ROMERO MD History of Present Illness: JULIANNA MCKEON JR is a very pleasant unfortunate a 72 year old male patient with multiple comorbidities including atrial fibrillation, hypertension, end-stage renal disease on peritoneal dialysis, COPD, coronary artery disease and peripheral arterial disease presents with chief complaint of generalized body weakness and leg swelling. Patient has a long-standing history of bilateral venous stasis and recurrent cellulitis. Patient denied any chills, fever, cough or chest pain. His initial blood work shows marked hypoglycemia with calcium level of 5.4. At ER patient is given calcium gluconate. His heart rate is also ranging between 107 and 110. The last 3 weeks patient has been sedentary. He has multiple lesion on his back most probably from pressure ulcer. He is chronically sick looking and emaciated. Hospital Course Hospital Course: Patient continued to receive peritoneal dialysis. Hemodialysis catheter was placed 03/29/2018. He started his first hemodialysis session 03/29/2018 and fo llowed by a second session on 03/30/2018. Patient has anemia likely anemia of chronic kidney disease. He was evaluated by gastroneurology and underwent an EGD that was positive for gastritis. Colonoscopy was scheduled but was not done because he did not complete the prep. Hemoglobin hematocrit continue to be observed and were stable. Patient had H fibrillation with rapid ventricular response. His metoprolol dose was increased and he is rate controlled. He was also hypocalcemic and was started on supplements and calcium is stable. Regarding hyperkalemia, he started on peritoneal dialysis and Veltassa. Then he was switched to hemodialysis. Hyperkalemia resolved. Patient was hypotensive and his blood pressure improved on midodrine. Patient is deconditioned and will require acute rehabilitation. Physical Exam Vital Signs: Temp Pulse Resp BP Pulse Ox 97.7 F 97 20 115/78 100 03/30/18 12:39 03/30/18 12:39 03/30/18 12:39 03/30/18 12:39 03/30/18 12:39 Intake & Output 03/29/18 03/30/18 03/31/18 06:59 06:59 06:59 Intake Total 7788 1887 Output Total 7700 3700 Balance 88 -1813 Weight 132 lb 11.492 oz 128 lb 1.417 oz General appearance: PRESENT: no acute distress, cooperative Head exam: PRESENT: atraumatic, normocephalic Mouth exam: PRESENT: moist, neck supple Neck exam: ABSENT: meningismus, tenderness Respiratory exam: PRESENT: clear to auscultation tata. ABSENT: accessory muscle use Cardiovascular exam: PRESENT: irregular rhythm GI/Abdominal exam: PRESENT: normal bowel sounds, soft. ABSENT: tenderness Rectal exam: PRESENT: deferred Neurological exam: PRESENT: alert, awake, oriented to person, oriented to place, oriented to time, oriented to situation Results Laboratory Results: 03/29/18 05:13 03/29/18 05:13 Impressions: Chest X-Ray 03/16/18 15:05 IMPRESSION: Cardiomegaly with no shara pulmonary edema. Small right pleural effusion. Central Venous Line 03/29/18 00:00 IMPRESSION: Intra procedural imaging and fluoro Guidance Fluoroscopy 03/29/18 00:00 IMPRESSION: Intra procedural imaging and fluoro Transfer Plan - Time Spent with Patient Time spent with patient: Greater than 30 Minutes Qualifiers - * PATIENT BEING DISCHARGED WITH ANY OF THE FOLLOWING DIAGNOSIS: No Plan Time Spent: Greater than 30 Minutes
[2018-03-30 14:30] LABS: HEPATITIS B CORE AB TOT Negative (Negative); HEPATITIS B SURFACE AB QUANT <3.1 mIU/mL (Immunity>9)
[2018-03-30] MEDS: PATIROMER 8.4 GM SUSP PACKET PO SCH (20:00)
[2018-03-30 20:01] VITALS: BP 128/70
[2018-04-05] MEDS ORDERED: EPOETIN ALFA INJ 40000 UNIT/1 ML (RENAL) SUBCUT SCH (10:00)
== END 2018-03-30 20:40 | DRG 286 ==
LOC: ER 14:11 → EH 16:48 → 4N 19:45 → 3N 03-17 02:19 → 4N 03-24 20:15
PROVIDERS: ADMIT Internal Medicine; ATTEND Internal Medicine
PROC: 3E1M39Z Irrigation of Peritoneal Cavity using Dialysate, Percutaneous Approach (ICD-10-PCS; 2018-03-16)
PROC: 30233N1 Transfusion of Nonautologous Red Blood Cells into Peripheral Vein, Percutaneous Approach (ICD-10-PCS; 2018-03-21)
PROC: 0DD68ZX Extraction of Stomach, Via Natural or Artificial Opening Endoscopic, Diagnostic (ICD-10-PCS; 2018-03-22)
PROC: 30233N1 Transfusion of Nonautologous Red Blood Cells into Peripheral Vein, Percutaneous Approach (ICD-10-PCS; 2018-03-23)
PROC: 3C1ZX8Z Irrigation of Indwelling Device using Irrigating Substance, External Approach (ICD-10-PCS; 2018-03-26)
PROC: B214YZZ Fluoroscopy of Right Heart using Other Contrast (ICD-10-PCS; principal; 2018-03-29)
PROC: 06H033Z Insertion of Infusion Device into Inferior Vena Cava, Percutaneous Approach (ICD-10-PCS; 2018-03-29)
PROC: B549ZZA Ultrasonography of Inferior Vena Cava, Guidance (ICD-10-PCS; 2018-03-29)
PROC: B31UYZZ Fluoroscopy of Pulmonary Trunk using Other Contrast (ICD-10-PCS; 2018-03-29)
PROC: 5A1D70Z Performance of Urinary Filtration, Intermittent, Less than 6 Hours Per Day (ICD-10-PCS; 2018-03-29)
DX: I13.2 Hypertensive heart and chronic kidney disease with heart failure and with stage 5 chronic kidney disease, or end stage renal disease (principal); N18.6 End stage renal disease; E43 Unspecified severe protein-calorie malnutrition; I50.43 Acute on chronic combined systolic (congestive) and diastolic (congestive) heart failure; L97.929 Non-pressure chronic ulcer of unspecified part of left lower leg with unspecified severity; L97.919 Non-pressure chronic ulcer of unspecified part of right lower leg with unspecified severity; L03.116 Cellulitis of left lower limb; L03.115 Cellulitis of right lower limb; Z68.1 Body mass index [BMI] 19.9 or less, adult; D62 Acute posthemorrhagic anemia; T85.698A Other mechanical complication of other specified internal prosthetic devices, implants and grafts, initial encounter; E83.51 Hypocalcemia; I25.10 Atherosclerotic heart disease of native coronary artery without angina pectoris; I48.91 Unspecified atrial fibrillation; J44.9 Chronic obstructive pulmonary disease, unspecified; D63.1 Anemia in chronic kidney disease; E87.5 Hyperkalemia; I95.9 Hypotension, unspecified; K29.70 Gastritis, unspecified, without bleeding; K20.9 Esophagitis, unspecified; K59.00 Constipation, unspecified; E83.42 Hypomagnesemia; T80.89XA Other complications following infusion, transfusion and therapeutic injection, initial encounter; M79.89 Other specified soft tissue disorders; I87.2 Venous insufficiency (chronic) (peripheral); R53.1 Weakness; Z60.2 Problems related to living alone; Z53.09 Procedure and treatment not carried out because of other contraindication; Z99.2 Dependence on renal dialysis; Z99.81 Dependence on supplemental oxygen; Z87.891 Personal history of nicotine dependence; Z79.82 Long term (current) use of aspirin; Z79.891 Long term (current) use of opiate analgesic; Z79.51 Long term (current) use of inhaled steroids; Z79.899 Other long term (current) drug therapy
CPT/HCPCS: 00731; 36415; 36430; 36558; 43239; 71046; 76937; 77001; 80048; 80053; 80170; 80202; 82272; 82306; 82607; 82728; 82746; 82803; 82962; 83540; 83550; 83605; 83735; 83970; 84100; 84439; 84443; 85025; 85027; 85045; 85610; 86317; 86704; 86850; 86900; 86901; 86920; 87040; 87070; 87075; 87205; 87340; 87493; 87522; 88305; 89050; 90945; 90947; 93005; 93010; 94640; 96361; 96374; 96375; 99285; C1713; C1752; J0610; J0690; J1160; J1200; J1580; J1644; J2060; J2250; J2405; J2704; J3010; J3370; J3475; J3490; J7030; J7120; J7620; P9016; P9047; Q4081; Q9967; S0164

== ENCOUNTER 2018-04-04 23:56 | Emergency (ER) | payer MEDICARE, OTHER ==
--- NOTE | 2018-04-05 01:30 | ER Document Report ---
ED General - General Chief Complaint: Shortness Of Breath Stated Complaint: SHORTNESS OF BREATH Time Seen by Provider: 04/05/18 01:07 Primary Care Provider: Basil ERIC MD [Primary Care Provider] - Follow up as needed Mode of Arrival: Medic Information source: Patient Notes: 72-year-old male brought to the emergency department by EMS for shortness of breath. Patient resides at [facility]. He has a history of end-stage renal disease, COPD, congestive heart failure. Patient is a dialysis patient and had hemodialysis today. He called 911 without notifying any of the nursing staff. The nursing staff tried to talk him out of coming to the emergency department but he insisted he needed to be seen. Patient denies any current shortness of breath or chest pain. He states that it resolved. Patient follows up with Dr. Eric nephrology. TRAVEL OUTSIDE OF THE [place] IN LAST 30 DAYS: No - HPI Onset: Just prior to arrival Onset/Duration: Sudden Quality of pain: No pain Severity: None Pain Level: Denies Associated symptoms: Shortness of breath Exacerbated by: Denies Relieved by: Denies Similar symptoms previously: Yes Recently seen / treated by doctor: No - Related Data Allergies/Adverse Reactions: Sulfa (Sulfonamide Antibiotics) Allergy (Verified 02/16/18 18:16) Past Medical History - General Information source: Patient - Social History Smoking Status: Former Smoker Family History: Hypertension Patient has suicidal ideation: No Patient has homicidal ideation: No - Past Medical History Cardiac Medical History: Reports: Hx Atrial Fibrillation, Hx Coronary Artery Disease, Hx Hypertension Denies: Hx Heart Attack Pulmonary Medical History: Reports: Hx COPD Denies: Hx Asthma Neurological Medical History: Denies: Hx Cerebrovascular Accident, Hx Seizures Renal/ Medical History: Reports: Hx End Stage Renal Disease. Denies: Hx Peritoneal Dialysis GI Medical History: Reports: Hx Hiatal Hernia. Denies: Hx Hepatitis, Hx Ulcer Musculoskeletal Medical History: Reports Hx Arthritis Psychiatric Medical History: Denies: Hx Depression Infectious Medical History: Denies: Hx Hepatitis Past Surgical History: Reports: Hx Cardiac Catheterization - CABG, Hx Cardiac Surgery, Hx Open Heart Surgery. Denies: Hx Pacemaker - Immunizations Hx Pneumococcal Vaccination: 11/28/14 Review of Systems - Review of Systems Constitutional: No symptoms reported EENT: No symptoms reported Cardiovascular: No symptoms reported Respiratory: Short of breath Gastrointestinal: No symptoms reported Genitourinary: No symptoms reported Male Genitourinary: No symptoms reported Musculoskeletal: No symptoms reported Skin: No symptoms reported Hematologic/Lymphatic: No symptoms reported Neurological/Psychological: No symptoms reported -: Yes All other systems reviewed and negative Physical Exam - Vital signs Vitals: Pulse Resp BP Pulse Ox 80 18 105/66 100 04/05/18 00:12 04/05/18 00:12 04/05/18 00:12 04/05/18 00:12 - Notes Notes: PHYSICAL EXAMINATION: GENERAL: Well-appearing, well-nourished and in no acute distress. HEAD: Atraumatic, normocephalic. EYES: Pupils equal round and reactive to light, extraocular movements intact, sclera anicteric, conjunctiva are normal. ENT: Nares patent, oropharynx clear without exudates. Moist mucous membranes. NECK: Normal range of motion, supple without lymphadenopathy LUNGS: Breath sounds clear to auscultation bilaterally and equal. No wheezes rales or rhonchi. HEART: Regular rate and rhythm without murmurs ABDOMEN: Soft, nontender, nondistended abdomen. No guarding, no rebound. No masses appreciated. Musculoskeletal: Normal range of motion, no pitting or edema. No cyanosis. NEUROLOGICAL: Cranial nerves grossly intact. Normal speech, normal gait. Normal sensory, motor exams PSYCH: Normal mood, normal affect. SKIN: Warm, Dry, normal turgor, no rashes or lesions noted. Course - Re-evaluation Re-evalutation: 04/05/18 01:29 EKG: Ventricular rate 86, QRS duration 144, QTc 498, atrial fibrillation, left bundle branch block. Similar to previous EKG done on 03/16/18. 04/06/18 09:17 Pneumonia seen on chest x-ray. Patient was given a gram of Rocephin in the emergency department. Patient is refusing ABG or troponin. Patient states that he just wants to go home. I discussed the risks of leaving. Patient understands his condition may worsen or he may . Patient is going to sign out AGAINST MEDICAL ADVICE. He is competent to make medical decisions. - Vital Signs Vital signs: Temp Pulse Resp BP Pulse Ox 80 17 128/79 H 98 04/05/18 00:12 04/05/18 05:34 04/05/18 05:34 04/05/18 05:34 - Laboratory Result Diagrams: 04/05/18 01:55 04/05/18 01:55 Laboratory results interpreted by me: 04/05/18 04/05/18 01:55 01:55 RBC 3.04 L Hgb 9.1 L Hct 29.0 L MCHC 31.3 L RDW 17.7 H Plt Count 135 L Lymphocytes % 11.0 L Absolute Lymphocytes 0.4 L BUN 55 H Creatinine 6.21 H Est GFR ( Amer) 11 L Est GFR (Non-Af Amer) 9 L Calcium 7.2 L AST 14 L ALT < 6 L Total Protein 5.8 L Albumin 3.0 L Discharge - Discharge Clinical Impression: Pneumonia Condition: Fair Disposition: AGAINST MEDICAL ADVICE Referrals: Basil ERIC MD [Primary Care Provider] - Follow up as needed
[2018-04-05 02:05] LABS: ABSOLUTE BASOPHILS # (AUTO) 0.1 10^3/uL (0.0-0.2); ABSOLUTE EOSINOPHILS # (AUTO) 0.1 10^3/uL (0.0-0.6); ABSOLUTE LYMPHOCYTES (AUTO) 0.4 10^3/uL (0.5-4.7); ABSOLUTE MONOCYTES (AUTO) 0.5 10^3/uL (0.1-1.4); BASOPHILS % (AUTO) 1.3 % (0-2); EOSINOPHILS % (AUTO) 1.3 % (0-6); HEMOGLOBIN 9.1 g/dL (13.5-17.0); MEAN CORPUSCULAR HEMOGLOBIN 29.9 pg (27.0-33.4); MEAN CORPUSCULAR HGB CONC 31.3 g/dL (32.0-36.0); MEAN CORPUSCULAR VOLUME 95 fl (80-97); MONOCYTES % (AUTO) 12.1 % (3-13); PLATELET COUNT 135 10^3/uL (150-450); RED BLOOD COUNT 3.04 10^6/uL (4.35-5.55); RED CELL DISTRIBUTION WIDTH 17.7 % (11.5-14.0); SEGMENTED NEUTROPHILS % (AUTO) 74.3 % (42-78); TOTAL CELLS COUNTED % (AUTO) 100 %; WHITE BLOOD COUNT 4.1 10^3/uL (4.0-10.5)
[2018-04-05 02:23] LABS: ALANINE AMINOTRANSFERASE < 6 U/L (21-72); ALKALINE PHOSPHATASE 71 U/L (38-126); ANION GAP 13 (5-19); ASPARTATE AMINO TRANSFERASE 14 U/L (17-59); BILIRUBIN,DIRECT 0.3 mg/dL (0.0-0.4); BILIRUBIN,TOTAL 0.3 mg/dL (0.2-1.3); BLOOD UREA NITROGEN 55 mg/dL (7-20); CALCIUM 7.2 mg/dL (8.4-10.2); CARBON DIOXIDE 27 mmol/L (22-30); CHLORIDE 101 mmol/L (98-107); GLUCOSE 92 mg/dL (75-110); POTASSIUM 4.3 mmol/L (3.6-5.0); SODIUM 141.1 mmol/L (137-145); TOTAL PROTEIN 5.8 g/dL (6.3-8.2)
--- NOTE | 2018-04-05 02:32 | RADIOLOGY REPORT (SQ) ---
EXAM DESCRIPTION: XR CHEST 1 VIEW COMPLETED DATE/TME: 04/05/2018 01:25 CLINICAL HISTORY: 72 years, Male, shortness of breath COMPARISON: 03/16/2018 chest NUMBER OF VIEWS: 1 TECHNIQUE: Portable chest LIMITATIONS: None. FINDINGS: Cardiomegaly. Median sternotomy wires. Overlying cardiac leads and wires. Central venous catheter with the tip likely in the cavoatrial junction. No pneumothorax. Osteopenia. Interstitial edema. Small to moderate right pleural effusion with adjacent airspace opacity. IMPRESSION: Cardiomegaly with interstitial edema. Small to moderate right pleural effusion. Adjacent airspace opacity copyright 2010 [employer]- All Rights Reserved
[2018-04-05] MEDS ORDERED: CEFTRIAXONE INJ 1000 MG VIAL IV ONE (02:54)
[2018-04-05 07:01] VITALS: BP 128/79
--- NOTE | 2018-04-05 22:57 | EKG REPORT ---
SEVERITY:- ABNORMAL ECG - ATRIAL FIBRILLATION, V-RATE 74-99 LEFT BUNDLE BRANCH BLOCK INFERIOR [place] : Confirmed by: Stephen Quiñonez 05-Apr-2018 22:56:50
== END 2018-04-05 05:40 | disposition left against medical advice (07) ==
LOC: ER 23:56
DX: J18.9 Pneumonia, unspecified organism (principal); J44.0 Chronic obstructive pulmonary disease with (acute) lower respiratory infection; I12.0 Hypertensive chronic kidney disease with stage 5 chronic kidney disease or end stage renal disease; N18.6 End stage renal disease; Z99.2 Dependence on renal dialysis; I48.91 Unspecified atrial fibrillation; I44.7 Left bundle-branch block, unspecified; I25.10 Atherosclerotic heart disease of native coronary artery without angina pectoris; Z88.2 Allergy status to sulfonamides; Z87.891 Personal history of nicotine dependence; Z95.1 Presence of aortocoronary bypass graft; Z53.29 Procedure and treatment not carried out because of patient's decision for other reasons
CPT/HCPCS: 93005; 36415; 85025; 80053; 84484; 71045; 93010; J0696

== ENCOUNTER 2018-04-09 15:05 | Inpatient (IN) | payer MEDICARE, OTHER ==
[2018-04-09 16:05] LABS: ABSOLUTE BASOPHILS # (AUTO) 0.1 10^3/uL (0.0-0.2); ABSOLUTE LYMPHOCYTES (AUTO) 0.4 10^3/uL (0.5-4.7); ABSOLUTE MONOCYTES (AUTO) 0.6 10^3/uL (0.1-1.4); ABSOLUTE NEUT (AUTO) 5.9 10^3/uL (1.7-8.2); BASOPHILS % (AUTO) 1.1 % (0-2); EOSINOPHILS % (AUTO) 0.4 % (0-6); HEMATOCRIT 29.5 % (37.9-51.0); HEMOGLOBIN 9.3 g/dL (13.5-17.0); LYMPHOCYTES % (AUTO) 5.7 % (13-45); MEAN CORPUSCULAR HEMOGLOBIN 30.3 pg (27.0-33.4); MEAN CORPUSCULAR HGB CONC 31.5 g/dL (32.0-36.0); MEAN CORPUSCULAR VOLUME 96 fl (80-97); MONOCYTES % (AUTO) 8.9 % (3-13); PLATELET COUNT 155 10^3/uL (150-450); PROTHROMBIN TIME 15.8 SEC (11.4-15.4); RED BLOOD COUNT 3.07 10^6/uL (4.35-5.55); RED CELL DISTRIBUTION WIDTH 18.8 % (11.5-14.0); SEGMENTED NEUTROPHILS % (AUTO) 83.9 % (42-78); TOTAL CELLS COUNTED % (AUTO) 100 %
[2018-04-09 16:09] LABS: ALANINE AMINOTRANSFERASE 8 U/L (21-72); ALBUMIN 3.4 g/dL (3.5-5.0); ALKALINE PHOSPHATASE 60 U/L (38-126); ANION GAP 13 (5-19); ASPARTATE AMINO TRANSFERASE 32 U/L (17-59); BILIRUBIN,DIRECT 0.4 mg/dL (0.0-0.4); BILIRUBIN,TOTAL 0.4 mg/dL (0.2-1.3); BLOOD UREA NITROGEN 59 mg/dL (7-20); CALCIUM 8.2 mg/dL (8.4-10.2); CARBON DIOXIDE 28 mmol/L (22-30); CHLORIDE 101 mmol/L (98-107); CREATINE KINASE 71 U/L (55-170); GLUCOSE 105 mg/dL (75-110); POTASSIUM 5.1 mmol/L (3.6-5.0); SODIUM 141.6 mmol/L (137-145); TOTAL PROTEIN 6.4 g/dL (6.3-8.2)
[2018-04-09 16:21] LABS: CREATINE KINASE MB 9.29 ng/mL (<4.55)
[2018-04-09 16:25] LABS: TROPONIN I 0.074 ng/mL
--- NOTE | 2018-04-09 16:57 | RADIOLOGY REPORT (SQ) ---
EXAM DESCRIPTION: CHEST SINGLE VIEW COMPLETED DATE/TIME: 04/09/2018 4:31 pm REASON FOR STUDY: dyspnea COMPARISON: 04/05/2018. EXAM PARAMETERS: NUMBER OF VIEWS: One view. TECHNIQUE: Single frontal radiographic view of the chest acquired. RADIATION DOSE: NA LIMITATIONS: None. FINDINGS: LUNGS AND PLEURA: There are streaky densities in both lung bases consistent with discoid a telectasis. Bilateral pleural thickening or effusions. Bilateral apical pleural thickening. MEDIASTINUM AND HILAR STRUCTURES: No masses. Contour normal. HEART AND VASCULAR STRUCTURES: Cardiomegaly with pulmonary vascular congestion. Status post median s ternotomy with broken mediastinal wires. Marker clips from CABG. Coronary stent. BONES: No acute findings. HARDWARE: None in the chest. OTHER: Dual-lumen catheter with tip at right atrium. IMPRESSION: Cardiomegaly with pulmonary vascular congestion and pleural effusions. Bibasilar atelec tasis. Status post CABG. TECHNICAL DOCUMENTATION: JOB ID: [id number] [id number] 2010 [employer]- All Rights Reserved Reading location - IP/workstation name: [email or web address]
--- NOTE | 2018-04-09 17:38 | ER Document Report ---
ED General - General Chief Complaint: Chest Pain Stated Complaint: URINARY ISSUES Time Seen by Provider: 04/09/18 15:31 Primary Care Provider: CHAPARRITA VEGA MD [Primary Care Provider] - Follow up as needed TRAVEL OUTSIDE OF THE [place] IN LAST 30 DAYS: No - HPI Notes: Patient presents to the emergency department for evaluation of multiple medical complaints. He states he has chest pain, but states this has been intermittent for several days. He is primarily concerned about his fluid overload. He is normally a peritoneal dialysis patient. He had 2 rounds of hemodialysis recently, and states that he believes this is worse in his status. He has dyspnea with exertion. He has orthopnea. He has had markedly increased edema. - Related Data Allergies/Adverse Reactions: Sulfa (Sulfonamide Antibiotics) Allergy (Verified 04/09/18 15:57) Past Medical History - General Information source: Patient - Social History Smoking Status: Former Smoker Frequency of alcohol use: None Drug Abuse: None Family History: Hypertension Patient has suicidal ideation: No Patient has homicidal ideation: No - Past Medical History Cardiac Medical History: Reports: Hx Atrial Fibrillation, Hx Coronary Artery Disease, Hx Hypertension Denies: Hx Heart Attack Pulmonary Medical History: Reports: Hx COPD Denies: Hx Asthma Neurological Medical History: Denies: Hx Cerebrovascular Accident, Hx Seizures Renal/ Medical History: Reports: Hx End Stage Renal Disease, Hx Peritoneal Dialysis GI Medical History: Reports: Hx Hiatal Hernia. Denies: Hx Hepatitis, Hx Ulcer Musculoskeletal Medical History: Reports Hx Arthritis Psychiatric Medical History: Denies: Hx Depression Infectious Medical History: Denies: Hx Hepatitis Past Surgical History: Reports: Hx Cardiac Catheterization - CABG, Hx Cardiac Surgery, Hx Open Heart Surgery. Denies: Hx Pacemaker - Immunizations Hx Pneumococcal Vaccination: 11/28/14 Review of Systems - Review of Systems Constitutional: No symptoms reported EENT: No symptoms reported Cardiovascular: Palpitations Respiratory: See HPI, Short of breath Gastrointestinal: No symptoms reported Musculoskeletal: No symptoms reported Skin: No symptoms reported Neurological/Psychological: No symptoms reported Physical Exam - Vital signs Vitals: Temp Pulse Ox 99.2 F 100 04/09/18 15:10 04/09/18 15:10 - Notes Notes: Patient is awake and alert, no acute distress. Head is normal cephalic and atraumatic. Pupils are equal round reactive to light. Oral mucosa is moist. Heart is irregularly irregular, lungs show diminished breath sounds at the b ases. Abdomen is soft, nontender. There is a peritoneal dialysis catheter in the left lower abdomen. No surrounding erythema or induration. Extremities show 4+ pitting edema the goes up to the groin. He has scrotal and penile edema as well. He moves all 4 extremity spontaneously, awake and alert. Skin is warm and dry. - General General appearance: Appears well In distress: None Course - Re-evaluation Re-evalutation: 04/09/18 17:39 Patient presents to the emergency department for evaluation. He has marked edema. He is mildly hyperkalemic. With any change in position he has a marked increase in his heart rate. Overall the patient is dialyzed. 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 - Vital Signs Vital signs: Temp Pulse Resp BP Pulse Ox 99.2 F 17 147/93 H 100 04/09/18 15:10 04/09/18 16:01 04/09/18 16:00 04/09/18 16:00 - Laboratory Result Diagrams: 04/09/18 15:35 04/09/18 15:35 Laboratory results interpreted by me: 04/09/18 04/09/18 04/09/18 15:35 15:35 15:35 RBC 3.07 L Hgb 9.3 L Hct 29.5 L MCHC 31.5 L RDW 18.8 H Seg Neutrophils % 83.9 H Lymphocytes % 5.7 L Absolute Lymphocytes 0.4 L PT 15.8 H Potassium 5.1 H BUN 59 H Creatinine 7.09 H Est GFR ( Amer) 9 L Est GFR (Non-Af Amer) 8 L Calcium 8.2 L ALT 8 L CK-MB (CK-2) Albumin 3.4 L 04/09/18 15:35 RBC Hgb Hct MCHC RDW Seg Neutrophils % Lymphocytes % Absolute Lymphocytes PT Potassium BUN Creatinine Est GFR ( Amer) Est GFR (Non-Af Amer) Calcium ALT CK-MB (CK-2) 9.29 H Albumin - Diagnostic Test Radiology reviewed: Reports reviewed - Pleural effusions and vascular congestion - EKG Interpretation by Me Additional EKG results interpreted by me: 04/09/18 17:35 EKG reveals atrial fibrillation with a rate of 102 bpm. Left bundle branch blo ck. No significant change from prior. - Consults kisha Time consulted: 17:30 - Agrees patient needs admitted for dialysis, will dialyze tomorrow Jenni Time consulted: 17:38 - will admit the patient Discharge - Discharge Clinical Impression: Fluid overload, Hyperkalemia Condition: Fair Disposition: ADMITTED INPATIENT Admitting Provider: Hospitalist Michel Arteaga Referrals: CHAPARRITA VEGA MD [Primary Care Provider] - Follow up as needed
[2018-04-09] MEDS ORDERED: FENTANYL CITRATE INJ/PF 100 MCG/2 ML AMPUL IV ONE (18:04)
[2018-04-09] MEDS: TRAZODONE HCL 50 MG TABLET PO PRN (21:59)
[2018-04-09] MEDS: ATORVASTATIN CALCIUM 10 MG TABLET PO SCH (21:59)
[2018-04-09] MEDS: METOPROLOL TARTRATE 25 MG TABLET PO SCH (21:59)
[2018-04-09] MEDS: ZOLPIDEM TARTRATE 5 MG TABLET PO PRN (21:59)
[2018-04-09] MEDS: OXYCODONE-ACETAMINOPHEN 5-325 MG TABLET PO PRN (21:59)
[2018-04-09] MEDS ORDERED: FLUTICASONE SALMETEROL IH SCH (22:00)
[2018-04-09] MEDS ORDERED: FLUTICASONE/SALMETEROL DISKUS 100-50 MCG/DOSE IH SCH (22:00)
[2018-04-09] MEDS: LACTULOSE SYRUP 20 GM/30 ML UDCUP PO PRN (22:04)
[2018-04-09] MEDS: TIOTROPIUM BROMIDE DPI 5 CAP/KIT (18 MCG/CAP) IH SCH (22:05)
[2018-04-09] MEDS: HEPARIN SOD (PORCINE) 5,000 UNIT/ML 1 ML SYRINGE SUBCUT SCH (22:05)
[2018-04-10 01:23] LABS: CREATINE KINASE MB 6.53 ng/mL (<4.55); TROPONIN I 0.076 ng/mL
[2018-04-10] MEDS: OXYCODONE-ACETAMINOPHEN 5-325 MG TABLET PO PRN ×3 (04:39→21:17)
[2018-04-10] MEDS: LEVOTHYROXINE SODIUM 0.112 MG TABLET PO SCH (05:39)
[2018-04-10] MEDS: HEPARIN SOD (PORCINE) 5,000 UNIT/ML 1 ML SYRINGE SUBCUT SCH ×3 (05:41→21:22)
--- NOTE | 2018-04-10 05:50 | PDOC H&P ---
History of Present Illness Admission Date/PCP: 04/09/18 18:03 CHAPARRITA VEGA MD Patient complains of: Increased shortness of breath with swelling of the legs History of Present Illness: JULIANNA MCKEON JR is a 72 year old male with multiple admissions to [facility]. His most recent admission was March 16. He is currently at [facility]. The emergency department nurse reports that a discussion with the staff at [facility] reveals that the patient has not been compliant with his peritoneal dialysis. The patient states that he has been noticing increasing shortness of breath. He reports that he underwent hemodialysis treatments a week or 2 ago. He reports that he did not tolerate these treatments and he believes that in fact the increased his fluid retention. He stated that he does not tolerate hemodialysis. I suggested that he discuss that with Dr. Eric tomorrow. In addition to the shortness of breath he states that he has experienced chest pressure. He reports that it is similar to when he had his bypass surgery. He did have a positive troponin as well as a positive MB fraction. Distant to be elevated with kidney failure patients. Fortunately I do not have an EKG to review. Chest x-ray does show congestive failure with pleural effusion. He was referred to the hospitalist service for admission. Past Medical History Cardiac Medical History: Reports: Atrial Fibrillation, Coronary Artery Disease, Hypertension Denies: Myocardial Infarction Pulmonary Medical History: Reports: Chronic Obstructive Pulmonary Disease (COPD) Denies: Asthma Neurological Medical History: Denies: Seizures Renal/ Medical History: Reports: End Stage Renal Disease GI Medical History: Reports: Hiatal Hernia Denies: Hepatitis Musculoskeltal Medical History: Reports: Arthritis Psychiatric Medical History: Denies: Depression Hematology: Reports: Anemia Denies: Sickle Cell Disease Past Surgical History Past Surgical History: Reports: Cardiac Catheterization - CABG Denies: Pacemaker Social History Information Source: Patient, [facility] Records Lives with: [facility] - Currently at [facility] Smoking Status: Former Smoker Frequency of Alcohol Use: None - Quit smoking and drinking 40 years ago. Hx Recreational Drug Use: No Drugs: None Hx Prescription Drug Abuse: No - Advance Directive Resuscitation Status: Full Code Surrogate healthcare decision maker:: He reports that he has an advanced directive on file to hospital. It names his son Will as the decision maker. Family History Family History: Hypertension Parental Family History Reviewed: Yes Children Family History Reviewed: Yes Sibling(s) Family History Reviewed.: Yes Medication/Allergy Home Medications: Aspirin [Aspirin 81 mg Chewable Tablet] 81 mg PO DAILY 02/16/18 Atorvastatin Calcium [Lipitor 10 mg Tablet] 10 mg PO QHS 02/16/18 Calcium Acetate [Phoslo 667 mg Capsule] 667 mg PO MEALS 02/16/18 Fluticasone/Salmeterol [Advair HFA 115-21 mcg Inhaler] 2 puff IH Q12 02/16/18 Folic Acid [Folvite 1 mg Tablet] 1 mg PO DAILY 02/16/18 Levothyroxine Sodium 112 mcg PO Q6AM 02/16/18 Tiotropium [place] [Spiriva Respimat] 1 puff IH Q12 02/16/18 Vitamin B Complex 1 tab PO DAILY 02/16/18 Zolpidem Tartrate [Ambien] 10 mg PO HSP PRN 02/16/18 Ferrous Sulfate [Iron] 325 mg PO TID 02/17/18 Trazodone HCl [Desyrel 50 mg Tablet] 50 mg PO HSP PRN #30 tablet 02/23/18 Docusate Sodium [Colace 100 mg Capsule] 100 mg PO BID capsule 03/30/18 Epoetin Andres [Procrit Inj 40,000 Unit/1 ml Vial (Renal)] 40,000 unit SUBCUT We vial 03/30/18 Ipratropium/Albuterol Sulfate [Duoneb 3 ml Ampul] 3 ml NEB RTQ4HP PRN vial.neb 03/30/18 Lactulose [Cephulac Syrup 20 gm/30 ml Udcup] 10 gm PO Q12 PRN udc 03/30/18 Magnesium Oxide [Mag-Ox 400 mg Tablet] 400 mg PO BID tablet 03/30/18 Metoprolol Tartrate [Lopressor 25 mg Tablet] 25 mg PO Q12 tablet 03/30/18 Midodrine HCl [Proamatine 5 mg Tablet] 10 mg PO TID tablet 03/30/18 Oxycodone HCl/Acetaminophen [Percocet 5-325 mg Tablet] 2 tab PO Q6HP PRN #8 tablet 03/30/18 Polyethylene Glycol 3350 [Miralax Powder 17 gm/Packet] 17 gm PO DAILY powd.pack 03/30/18 Trazodone HCl 50 mg PO QHS PRN 04/09/18 Allergies/Adverse Reactions: Sulfa (Sulfonamide Antibiotics) Allergy (Verified 04/09/18 15:57) Review of Systems Constitutional: PRESENT: fatigue, weakness Eyes: ABSENT: visual disturbances Ears: PRESENT: hearing changes Nose, Mouth, and Throat: ABSENT: mouth pain, sore throat Cardiovascular: PRESENT: chest pain, dyspnea on exertion, edema Respiratory: PRESENT: dyspnea Gastrointestinal: ABSENT: coffee ground emesis, constipation, diarrhea, melena, nausea, vomiting Genitourinary: PRESENT: other - Anuric Musculoskeletal: PRESENT: back pain Integumentary: PRESENT: other - Extremely dry skin with keratin scaling. Dusky discoloration and legs consistent with venous insufficiency. Weeping area on the left leg. Neurological: ABSENT: focal weakness, syncope, tremor(s) Psychiatric: PRESENT: anxiety Hematologic/Lymphatic: PRESENT: easy bruising Physical Exam Vital Signs: Temp Pulse Resp BP Pulse Ox 98.8 F 18 122/84 2 L 04/09/18 19:06 04/09/18 19:00 04/09/18 19:00 04/09/18 19:06 Intake & Output 04/08/18 04/09/18 04/10/18 06:59 06:59 06:59 Weight 67.132 kg General appearance: PRESENT: cooperative, mild distress, well-developed - But frail-appearing 72-year-old male.. ABSENT: well-nourished Head exam: PRESENT: normocephalic Eye exam: PRESENT: conjunctiva pale Ear exam: PRESENT: normal external ear exam Respiratory exam: PRESENT: decreased breath sounds, rales. ABSENT: rhonchi, wheezes Cardiovascular exam: PRESENT: irregular rhythm, +S1, +S2 GI/Abdominal exam: PRESENT: distended, normal bowel sounds, soft, other - Peritoneal dialysis catheter in the left abdomen. There appears to be an inordinate amount of peritoneal dialysis catheter tubing exposed.. ABSENT: tenderness Rectal exam: PRESENT: deferred Gentrourinary exam: PRESENT: scrotal swelling Extremities exam: PRESENT: +2 edema Neurological exam: PRESENT: alert, awake, oriented to person, oriented to place, oriented to situation Psychiatric exam: PRESENT: anxious Skin exam: PRESENT: erythema, other - Discoloration associated with venous insufficiency bilateral lower extremities. Bruising upper extremities. Extremely dry skin with keratin scaling upper and lower extremities. Small area weeping fluid left anterior lower leg.. ABSENT: normal color Results Laboratory Results: 04/09/18 15:35 04/09/18 15:35 04/09/18 04/09/18 15:35 15:35 WBC 7.0 RBC 3.07 L Hgb 9.3 L Hct 29.5 L MCV 96 MCH 30.3 MCHC 31.5 L RDW 18.8 H Plt Count 155 Seg Neutrophils % 83.9 H Lymphocytes % 5.7 L Monocytes % 8.9 Eosinophils % 0.4 Basophils % 1.1 Absolute Neutrophils 5.9 Absolute Lymphocytes 0.4 L Absolute Monocytes 0.6 Absolute Eosinophils 0.0 Absolute Basophils 0.1 Sodium 141.6 Potassium 5.1 H Chloride 101 Carbon Dioxide 28 Anion Gap 13 BUN 59 H Creatinine 7.09 H Est GFR ( Amer) 9 L Est GFR (Non-Af Amer) 8 L Glucose 105 Calcium 8.2 L Total Bilirubin 0.4 AST 32 ALT 8 L Alkaline Phosphatase 60 Total Protein 6.4 Albumin 3.4 L 04/09/18 04/09/18 15:35 15:35 Creatine Kinase 71 CK-MB (CK-2) 9.29 H Troponin I 0.074 Impressions: Chest X-Ray 04/09/18 15:51 IMPRESSION: Cardiomegaly with pulmonary vascular congestion and pleural effusions. Bibasilar atelectasis. Status post CABG. Assessment & Plan - Diagnosis (1) Acute kidney injury superimposed on chronic kidney disease Is this a current diagnosis for this admission?: Yes Plan: Evidently the patient has not been compliant with dialysis at the [facility] facility. This was per the emergency room nurse discussion with Whitney on a reverse. The patient states that hemodialysis makes him! He also is, in my opinion, sometimes a bit confused. The emergency room physician spoke with Dr. Eric today. We will admit the patient and dialyzed tomorrow. The patient seems adamant that he will refuse hemodialysis. Although he tells me he can handle his peritoneal dialysis on his own I have doubts. He does have pleural effusions and it appears that his peritoneal dialysis catheter is somewhat long and may be a bit displaced but it is hard to know. He was in the hospital for peritonitis several months ago. I will defer to nephrology for specific management. (2) End-stage renal disease (ESRD) Is this a current diagnosis for this admission?: Yes Plan: See discussion above. I do not think the patient fully comprehends his clinical status. He wants to be full code in light of his coronary and renal disease. I will order a palliative care consult. (3) Acute on chronic diastolic congestive heart failure, NYHA class 4 Is this a current diagnosis for this admission?: Yes Plan: The etiology of the congestive heart failure is a combination of his coronary disease and end-stage kidney disease. His last echocardiogram was several years ago. We will obtain an echocardiogram. This will give us an idea of how much of his failure is cardiac related. I will await the echocardiogram results before deciding on james inhibitor/angiotensin receptor josselin or a combination such as Entresto. (4) Coronary artery disease Qualifiers: Coronary Disease-Associated Artery/Lesion type: knik artery [place] vs. transplanted heart: knik heart Associated angina: without angina Qualified Code(s): I25.10 - Atherosclerotic heart disease of knik coronary artery without angina pectoris Is this a current diagnosis for this admission?: Yes Plan: History of coronary artery disease with bypass. He is on statin therapy as well as beta-josselin therapy. (5) Hypothyroid Qualifiers: Hypothyroidism type: unspecified Qualified Code(s): E03.9 - Hypothyroidism, unspecified Is this a current diagnosis for this admission?: Yes Plan: Continue levothyroxine. (6) Hypoxemia Is this a current diagnosis for this admission?: Yes Plan: Supplement oxygen to keep oxygen saturation greater than or equal to 90%. (7) Fluid overload Qualifiers: Hypervolemia type: other Qualified Code(s): E87.79 - Other fluid overload Is this a current diagnosis for this admission?: Yes Plan: Management with dialysis. Defer to nephrology. (8) Hyperkalemia Is this a current diagnosis for this admission?: Yes Plan: Not unexpected with end-stage kidney disease. We will monitor and treat if clinically indicated. - Time Time Spent: Greater than 70 Minutes Medications reviewed and adjusted accordingly: Yes - Inpatient Certification Based on my medical assessment, after consideration of the patient's comorbidities, presenting symptoms, or acuity I expect that the services needed warrant INPATIENT care.: Yes I certify that my determination is in accordance with my understanding of Medicare's requirements for reasonable and necessary INPATIENT services [42 CFR 412.3e].: Yes Medical Necessity: Significant Comorbidiites Make Outpatient Treatment Too Risky, Need Close Monitoring Due to Risk of Patient Decompensation, Need For Continuous Telemetry Monitoring
[2018-04-10] MEDS: CALCIUM ACETATE 667 MG CAPSULE PO SCH ×3 (06:16→17:49)
[2018-04-10 07:20] LABS: ABSOLUTE BASOPHILS # (AUTO) 0.1 10^3/uL (0.0-0.2); ABSOLUTE LYMPHOCYTES (AUTO) 0.6 10^3/uL (0.5-4.7); ABSOLUTE MONOCYTES (AUTO) 0.6 10^3/uL (0.1-1.4); ABSOLUTE NEUT (AUTO) 5.2 10^3/uL (1.7-8.2); BASOPHILS % (AUTO) 1.5 % (0-2); EOSINOPHILS % (AUTO) 0.2 % (0-6); HEMOGLOBIN 9.1 g/dL (13.5-17.0); LYMPHOCYTES % (AUTO) 8.9 % (13-45); MEAN CORPUSCULAR HEMOGLOBIN 30.4 pg (27.0-33.4); MEAN CORPUSCULAR HGB CONC 31.2 g/dL (32.0-36.0); MEAN CORPUSCULAR VOLUME 97 fl (80-97); MONOCYTES % (AUTO) 9.5 % (3-13); PLATELET COUNT 145 10^3/uL (150-450); RED BLOOD COUNT 2.98 10^6/uL (4.35-5.55); RED CELL DISTRIBUTION WIDTH 19.1 % (11.5-14.0); SEGMENTED NEUTROPHILS % (AUTO) 79.9 % (42-78); TOTAL CELLS COUNTED % (AUTO) 100 %; WHITE BLOOD COUNT 6.5 10^3/uL (4.0-10.5)
[2018-04-10 07:38] LABS: ALBUMIN 3.3 g/dL (3.5-5.0); ANION GAP 16 (5-19); BLOOD UREA NITROGEN 63 mg/dL (7-20); CALCIUM 8.1 mg/dL (8.4-10.2); CARBON DIOXIDE 25 mmol/L (22-30); CHLORIDE 101 mmol/L (98-107); CREATINE KINASE 51 U/L (55-170); GLUCOSE 125 mg/dL (75-110); PHOSPHORUS 7.8 mg/dL (2.5-4.5); POTASSIUM 5.6 mmol/L (3.6-5.0); SODIUM 141.5 mmol/L (137-145)
[2018-04-10 07:55] LABS: CREATINE KINASE MB 6.02 ng/mL (<4.55); TROPONIN I 0.079 ng/mL
[2018-04-10] MEDS ORDERED: CALCIUM ACETATE 667 MG CAPSULE PO SCH (08:00)
[2018-04-10] MEDS ORDERED: (PENDING PHARMACY ID) (Vitamin B Complex [Vitamin B Complex] 1 TAB) PO SCH (10:00)
[2018-04-10] MEDS: METOPROLOL TARTRATE 25 MG TABLET PO SCH ×2 (10:00→21:17)
[2018-04-10] MEDS ORDERED: MIDODRINE HCL 5 MG TABLET PO SCH (10:00)
[2018-04-10] MEDS: MIDODRINE HCL 5 MG TABLET PO SCH ×3 (10:07→17:50)
[2018-04-10] MEDS ORDERED: EPOETIN ALFA INJ 20000 UNIT/1 ML VIAL (RENAL) IV PRN (12:35)
[2018-04-10] MEDS: FERROUS SULFATE 325 MG TABLET PO SCH ×3 (13:06→17:49)
[2018-04-10] MEDS: DOCUSATE SODIUM 100 MG CAPSULE PO SCH ×2 (13:06→17:49)
[2018-04-10] MEDS: PANTOT AC/MIN OIL/PET HY-PHL OINT 50 GM TOP SCH ×2 (13:06→17:49)
[2018-04-10] MEDS: MAGNESIUM OXIDE 400 MG TABLET PO SCH ×2 (13:08→17:49)
[2018-04-10] MEDS: ASPIRIN 81 MG TABLET, CHEWABLE PO SCH (13:56)
[2018-04-10] MEDS: TIOTROPIUM BROMIDE DPI 5 CAP/KIT (18 MCG/CAP) IH SCH ×2 (13:59→21:18)
[2018-04-10] MEDS: POLYETHYLENE GLYCOL 3350 POWDER 17 GM/1 PACKET PO SCH (13:59)
[2018-04-10] MEDS: FOLIC ACID 1 MG TABLET PO SCH (13:59)
--- NOTE | 2018-04-10 19:54 | PDOC CONSULTATION ---
Consultation Consult Date: 04/10/18 Attending physician:: BHAVYA MARQUEZ Consult reason:: I was asked to see the patient due to acute onset of shortness of breath in a patient on hemodialysis with ESRD. History of Present Illness Admission Date/PCP: 04/09/18 18:03 CHAPARRITA VEGA MD History of Present Illness: JULIANNA MCKEON JR is a 72 year old male with history of end-stage renal disease previously on peritoneal dialysis who recently switched to hemodialysis, atrial fibrillation, coronary artery disease, hypertension, chronic venous stasis, and anemia of chronic kidney disease who was admitted yesterday because of acute onset of shortness of breath. Patient was just recently admitted to the hospital about couple of weeks ago discharged to [facility] and has been started on hemodialysis. He has been on hemodialysis for at least 1-1/2 weeks now. Patient claims that he is retaining too much fluid and he started having shortness of breath. He also claims that his weight is increasing and he has more lower extremity swelling. He describes some chest pressure as well. His chest x-ray showed pulmonary vascular congestion with small pleural effusions. This morning the patient was refusing to go to hemodialysis and wanted to go back to peritoneal dialysis. I came in and talked to the patient informing him that if he switched to peritoneal dialysis he will not be able to be admitted to the [facility] anymore and that he needed to go home which he really cannot do due to weakness. Finally after discussion he agreed to get hemodialysis treatment. I saw the patient again during dialysis treatment. He actually tolerated dialysis well without any problems. We were able to get ultrafiltration of about 3.7 L today. He did not have any other complaints during dialysis. Past Medical History Cardiac Medical History: Reports: Atrial Fibrillation, Coronary Artery Disease, Hypertension-primary Pulmonary Medical History: Reports: Chronic Obstructive Pulmonary Disease (COPD) Renal/ Medical History: Reports: End Stage Renal Disease, Renal Osteodystropy, Secondary Hyperparathyroidism GI Medical History: Reports: Hiatal Hernia Musculoskeltal Medical History: Reports: Arthritis Hematology Medical History: Reports Anemia of Chronic Kidney Disease Past Surgical History Past Surgical History: Reports: Cardiac Catheterization - CABG, Dialysis Access Surgery PD, Vascular Surgery - PermCath placement Social History Information Source: Patient Lives with: Skilled Nursing - Currently at [facility] Smoking Status: Former Smoker Frequency of Alcohol Use: None - Quit smoking and drinking 40 years ago. Hx Recreational Drug Use: No Drugs: None Hx Prescription Drug Abuse: No - Advance Directive Resuscitation Status: Full Code Family History Family History: Other - No family history of kidney disease Parental Family History Reviewed: Yes Children Family History Reviewed: Yes Sibling(s) Family History Reviewed.: Yes Medication/Allergy Home Medications: Aspirin [Adult Low Dose Aspirin EC] 81 mg PO QAM 04/10/18 Atorvastatin Calcium [Lipitor 10 mg Tablet] 10 mg PO QHS 04/10/18 Calcium Acetate [Phoslo 667 mg Capsule] 667 mg PO MEALS 04/10/18 Docusate Sodium [Colace 100 mg Capsule] 100 mg PO BID 04/10/18 Ferrous Sulfate [Feosol 325 mg Tablet] 325 mg PO TID 04/10/18 Fluticasone/Salmeterol [Advair HFA 115-21 mcg Inhaler] 2 puff IH BID 04/10/18 Folic Acid [Folvite 1 mg Tablet] 1 mg PO QAM 04/10/18 Ipratropium/Albuterol Sulfate [Duoneb 3 ml Ampul] 3 ml NEB [id number] PRN 04/10/18 Lactulose [Constulose 10 gm/15 mL Oral Solution] 10 ml PO Q12HP PRN 04/10/18 Levofloxacin [Levaquin 750 mg Tablet] 750 mg PO [id number] 04/10/18 Levothyroxine Sodium 112 mcg PO Q6AM 04/10/18 Magnesium Oxide [Mag-Ox 400 mg Tablet] 400 mg PO BID 04/10/18 Metoprolol Tartrate [Lopressor 25 mg Tablet] 25 mg PO Q12 04/10/18 Midodrine HCl 10 mg PO TID 04/10/18 Oxycodone HCl/Acetaminophen [Percocet 5-325 mg Tablet] 2 tab PO Q6HP PRN 04/10/18 Polyethylene Glycol 3350 [Miralax Powder 17 gm/Packet] 17 gm PO DAILY 04/10/18 Tiotropium [place] [Spiriva Respimat] 2 puff IH DAILY 04/10/18 Trazodone HCl [Desyrel 50 mg Tablet] 50 mg PO HSP PRN 04/10/18 Vitamin B Complex 1 tab PO QAM 04/10/18 Zolpidem Tartrate [Ambien] 10 mg PO HSP PRN 04/10/18 Allergies/Adverse Reactions: Sulfa (Sulfonamide Antibiotics) Allergy (Verified 04/09/18 15:57) Review of Systems All systems: reviewed and no additional remarkable complaints except as stated Review of Systems: Constitutional: ABSENT: chills, fatigue, fever(s), headache(s), weight gain, weight loss Eyes: ABSENT: visual disturbances Ears: ABSENT: hearing changes Cardiovascular: ABSENT: chest pain, orthropnea, palpitations; admits shortness of breath and increasing edema Respiratory: ABSENT: cough, dyspnea, hemoptysis Gastrointestinal: ABSENT: abdominal pain, constipation, diarrhea, hematemesis, hematochezia, nausea, vomiting Genitourinary: ABSENT: dysuria, hematuria Musculoskeletal: ABSENT: joint swelling Integumentary: ABSENT: rash, wounds Neurological: ABSENT: abnormal gait, abnormal speech, confusion, dizziness, focal weakness, numbness, syncope Psychiatric: ABSENT: anxiety, depression Endocrine: ABSENT: cold intolerance, heat intolerance, polydipsia, polyuria Hematologic/Lymphatic: ABSENT: easy bleeding, easy bruising, lymphadenopathy Physical Exam Vital Signs: Temp Pulse Resp BP Pulse Ox 98.5 F 87 20 128/72 H 96 04/10/18 15:45 04/10/18 15:45 04/10/18 15:45 04/10/18 15:45 04/10/18 16:00 Pulse Oximeter Continuous Start: 04/09/18 19:06 Freq: RTQ4 Status: Active Protocol: Document 04/10/18 16:00 BRANDON (Rec: 04/10/18 16:02 [id number]) Pulse Oximetry Assessment Oxygen Saturation (92-100) 96 Oxygen Flow Rate (L/min) 2 Oxygen Delivery Method Nasal Cannula Equipment Usage Initial Set Up Continuous SpO2 Machine # 13 Intake & Output 04/09/18 04/10/18 04/11/18 06:59 06:59 06:59 Intake Total 640 650 Output Total 3700 Balance 640 -3050 Weight 72.2 kg Vitals during dialysis: Blood pressure 1 over 7/65, heart rate of 65, blood flow rate of 350 mL/min, dialysate flow rate of 800 mL/min. Exam: General appearance: No acute distress, cooperative, well-developed, well- nourished Head exam: PRESENT: atraumatic, normocephalic Eye exam: PRESENT: Conjunctiva pale, EOMI, PERRLA. ABSENT: conjunctival injection, scleral icterus Mouth exam: PRESENT: moist, neck supple, tongue midline Neck exam: PRESENT: full ROM. ABSENT: carotid bruit, JVD, lymphadenopathy, thyromegaly Respiratory exam: PRESENT: Diminished to auscultation bilaterally. Positive bibasilar crackles ABSENT: Rhonchi, stridor, wheezes Cardiovascular exam: PRESENT: Irregularly irregular, +S1, +S2. ABSENT: systolic murmur Pulses: PRESENT: normal radial pulses, normal dorsalis pedis pulses GI/Abdominal exam: PRESENT: normal bowel sounds, soft. ABSENT: guarding, mass, tenderness Rectal exam: Deferred Extremities exam: PRESENT: full ROM. Grade 1 bilateral lower extremity pitting edema ABSENT: calf tenderness Musculoskeletal: PRESENT: full ROM. ABSENT: deformity Neurological exam: PRESENT: alert, Awake, Oriented to person, Oriented to place, Oriented to time, reflexes normal, CN II-XII grossly intact. ABSENT: motor sensory deficit Psychiatric exam: PRESENT: appropriate affect, normal mood. ABSENT: homicidal ideation, suicidal ideation Skin exam: PRESENT: intact, dry, warm. ABSENT: rash Results Laboratory Results: 04/10/18 06:54 04/10/18 06:54 04/10/18 04/10/18 06:54 06:54 WBC 6.5 RBC 2.98 L Hgb 9.1 L Hct 29.0 L MCV 97 MCH 30.4 MCHC 31.2 L RDW 19.1 H Plt Count 145 L Seg Neutrophils % 79.9 H Lymphocytes % 8.9 L Monocytes % 9.5 Eosinophils % 0.2 Basophils % 1.5 Absolute Neutrophils 5.2 Absolute Lymphocytes 0.6 Absolute Monocytes 0.6 Absolute Eosinophils 0.0 Absolute Basophils 0.1 Sodium 141.5 Potassium 5.6 H Chloride 101 Carbon Dioxide 25 Anion Gap 16 BUN 63 H Creatinine 7.63 H Est GFR ( Amer) 9 L Est GFR (Non-Af Amer) 7 L Glucose 125 H Calcium 8.1 L Phosphorus 7.8 H Magnesium 2.6 H Albumin 3.3 L 04/09/18 04/09/18 04/10/18 15:35 15:35 00:20 Creatine Kinase 71 57 CK-MB (CK-2) 9.29 H Troponin I 0.074 04/10/18 04/10/18 04/10/18 00:20 06:54 06:54 Creatine Kinase 51 L CK-MB (CK-2) 6.53 H 6.02 H Troponin I 0.076 0.079 Impressions: Chest X-Ray 04/09/18 15:51 IMPRESSION: Cardiomegaly with pulmonary vascular congestion and pleural effusions. Bibasilar atelectasis. Status post CABG. Assessment & Plan - Diagnosis (1) Acute on chronic diastolic congestive heart failure, NYHA class 4 Is this a current diagnosis for this admission?: Yes Plan: Ultrafiltration during dialysis treatment would help relieve this. (2) End-stage renal disease (ESRD) Is this a current diagnosis for this admission?: Yes Plan: We did dialysis today for 3 hours, using the patient's PermCath, with 2 potassium bath, blood flow rate of 350 mL per minute, dialysate flow rate of 800 mL per minute, ultrafiltration 3.5-4 L as tolerated, no heparin and Procrit with 20,000 units during dialysis intravenously. Patient was monitored throughout dialysis treatment. Vitals including blood pressures were monitored. Ultrafiltration adjusted according to patient's response. While here in the hospital we will try to get ultrafiltration to get the patient to dry weight. (3) Hyperkalemia Is this a current diagnosis for this admission?: Yes Plan: Needs dialysis and low potassium diet. (4) Anemia in chronic kidney disease (CKD) Is this a current diagnosis for this admission?: Yes Plan: Procrit during dialysis as needed. (5) Hyperphosphatemia Is this a current diagnosis for this admission?: Yes Plan: Continue calcium acetate for phosphorus binders. (6) Venous insufficiency of both lower extremities Is this a current diagnosis for this admission?: Yes - Notes Notes: Thank you very much for this consultation. We will follow the patient with you. - Time Time Spent: 50 to 70 Minutes
[2018-04-10] MEDS: TRAZODONE HCL 50 MG TABLET PO PRN (21:17)
[2018-04-10] MEDS: ATORVASTATIN CALCIUM 10 MG TABLET PO SCH (21:17)
[2018-04-10] MEDS: ZOLPIDEM TARTRATE 5 MG TABLET PO PRN (21:20)
--- NOTE | 2018-04-10 23:23 | EKG REPORT ---
SEVERITY:- ABNORMAL ECG - ATRIAL FIBRILLATION LEFT BUNDLE BRANCH BLOCK INFERIOR Q WAVES, POSSIBLY DUE TO LBBB : Confirmed by: Ana Mcadams MD 10-Apr-2018 23:22:22
[2018-04-11] MEDS: LEVOTHYROXINE SODIUM 0.112 MG TABLET PO SCH (05:12)
[2018-04-11] MEDS: OXYCODONE-ACETAMINOPHEN 5-325 MG TABLET PO PRN ×3 (05:12→20:44)
[2018-04-11] MEDS: CALCIUM ACETATE 667 MG CAPSULE PO SCH ×3 (05:12→17:05)
[2018-04-11] MEDS: HEPARIN SOD (PORCINE) 5,000 UNIT/ML 1 ML SYRINGE SUBCUT SCH ×3 (05:14→21:50)
[2018-04-11] MEDS: MIDODRINE HCL 5 MG TABLET PO SCH ×3 (09:01→18:01)
[2018-04-11] MEDS: ASPIRIN 81 MG TABLET, CHEWABLE PO SCH (09:04)
[2018-04-11] MEDS: FERROUS SULFATE 325 MG TABLET PO SCH ×3 (09:04→17:05)
[2018-04-11] MEDS: POLYETHYLENE GLYCOL 3350 POWDER 17 GM/1 PACKET PO SCH (09:04)
[2018-04-11] MEDS: MAGNESIUM OXIDE 400 MG TABLET PO SCH ×2 (09:04→17:05)
[2018-04-11] MEDS: METOPROLOL TARTRATE 25 MG TABLET PO SCH ×2 (09:04→21:48)
[2018-04-11] MEDS: DOCUSATE SODIUM 100 MG CAPSULE PO SCH ×2 (09:04→17:05)
[2018-04-11] MEDS: FOLIC ACID 1 MG TABLET PO SCH (09:04)
[2018-04-11] MEDS: TIOTROPIUM BROMIDE DPI 5 CAP/KIT (18 MCG/CAP) IH SCH ×2 (09:05→21:49)
[2018-04-11] MEDS: PANTOT AC/MIN OIL/PET HY-PHL OINT 50 GM TOP SCH ×2 (09:07→18:01)
--- NOTE | 2018-04-11 13:07 | PDOC PROGRESS REPORT ---
Subjective Progress Note for:: 04/10/18 Subjective:: Patient did undergo hemodialysis earlier today he does not think he feels any better. He appears to be breathing more comfortably. 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: HEART FAILURE Physical Exam Vital Signs: Temp Pulse Resp BP Pulse Ox 98.5 F 87 20 128/72 H 96 04/10/18 15:45 04/10/18 15:45 04/10/18 15:45 04/10/18 15:45 04/10/18 16:00 Pulse Oximeter Continuous Start: 04/09/18 19:06 Freq: RTQ4 Status: Active Protocol: Document 04/10/18 16:00 JDR (Rec: 04/10/18 16:02 JDR [id number]) Pulse Oximetry Assessment Oxygen Saturation (92-100) 96 Oxygen Flow Rate (L/min) 2 Oxygen Delivery Method Nasal Cannula Equipment Usage Initial Set Up Continuous SpO2 Machine # 13 Intake & Output 04/09/18 04/10/18 04/11/18 06:59 06:59 06:59 Intake Total 640 650 Output Total 3700 Balance 640 -3050 Weight 72.2 kg General appearance: PRESENT: no acute distress, cooperative Respiratory exam: PRESENT: rales, symmetrical, other - Decreased inspiratory phase. ABSENT: rhonchi, wheezes Cardiovascular exam: PRESENT: RRR, +S1, +S2, systolic murmur, other - Vas-Cath right chest GI/Abdominal exam: PRESENT: normal bowel sounds, soft, other - Peritoneal dialysis catheter in place. ABSENT: tenderness Extremities exam: PRESENT: pedal edema Neurological exam: PRESENT: alert, awake, oriented to person, oriented to place, oriented to situation Psychiatric exam: PRESENT: anxious. ABSENT: agitated Results Laboratory Results: 04/10/18 06:54 04/10/18 06:54 04/10/18 04/10/18 06:54 06:54 WBC 6.5 RBC 2.98 L Hgb 9.1 L Hct 29.0 L MCV 97 MCH 30.4 MCHC 31.2 L RDW 19.1 H Plt Count 145 L Seg Neutrophils % 79.9 H Lymphocytes % 8.9 L Monocytes % 9.5 Eosinophils % 0.2 Basophils % 1.5 Absolute Neutrophils 5.2 Absolute Lymphocytes 0.6 Absolute Monocytes 0.6 Absolute Eosinophils 0.0 Absolute Basophils 0.1 Sodium 141.5 Potassium 5.6 H Chloride 101 Carbon Dioxide 25 Anion Gap 16 BUN 63 H Creatinine 7.63 H Est GFR ( Amer) 9 L Est GFR (Non-Af Amer) 7 L Glucose 125 H Calcium 8.1 L Phosphorus 7.8 H Magnesium 2.6 H Albumin 3.3 L 04/09/18 04/09/18 04/10/18 15:35 15:35 00:20 Creatine Kinase 71 57 CK-MB (CK-2) 9.29 H Troponin I 0.074 04/10/18 04/10/18 04/10/18 00:20 06:54 06:54 Creatine Kinase 51 L CK-MB (CK-2) 6.53 H 6.02 H Troponin I 0.076 0.079 Impressions: Chest X-Ray 04/09/18 15:51 IMPRESSION: Cardiomegaly with pulmonary vascular congestion and pleural effusions. Bibasilar atelectasis. Status post CABG. Assessment & Plan - Diagnosis (1) Acute kidney injury superimposed on chronic kidney disease Is this a current diagnosis for this admission?: Yes Plan: The patient was on hemodialysis for several days as it was felt the peritoneal dialysis was ineffective. He presents with the need for hemodialysis as he is unable to get peritoneal dialysis at [facility]. The patient has expressed his opinion about not wanting hemodialysis but instead continue peritoneal dialysis. Unfortunately there are no [facility] facilities that offer peritoneal dialysis. If the patient refuses hemodialysis a hospice consult should be considered. (2) End-stage renal disease (ESRD) Is this a current diagnosis for this admission?: Yes Plan: As above (3) Acute on chronic diastolic congestive heart failure, NYHA class 4 Is this a current diagnosis for this admission?: Yes Plan: Awaiting repeat echocardiogram. Last echocardiogram was several years ago. The patient does have a history of bypass surgery. He likely has a combination of cardiac failure as well as fluid management issues secondary to kidney failure. Unfortunately he does not make urine and so diuretics would be ineffective. (4) Coronary artery disease Qualifiers: Coronary Disease-Associated Artery/Lesion type: [place] artery [place] vs. transplanted heart: [place] heart Associated angina: without angina Qualified Code(s): I25.10 - Atherosclerotic heart disease of [place] coronary artery without angina pectoris Is this a current diagnosis for this admission?: Yes Plan: History of bypass surgery. Currently asymptomatic. Continue current medications. (5) Hypothyroid Qualifiers: Hypothyroidism type: unspecified Qualified Code(s): E03.9 - Hypothyroidism, unspecified Is this a current diagnosis for this admission?: Yes Plan: Continue levothyroxine. (6) Hypoxemia Is this a current diagnosis for this admission?: Yes Plan: Continue oxygen supplementation. This is chronic for the patient. (7) Fluid overload Qualifiers: Hypervolemia type: other Qualified Code(s): E87.79 - Other fluid overload Is this a current diagnosis for this admission?: Yes Plan: Because he does not produce urine and this will be managed with dialysis. Please also see nephrology note. (8) Hyperkalemia Is this a current diagnosis for this admission?: Yes Plan: We will continue to monitor. With hemodialysis serum potassium should decrease. If not consider Kayexalate. - Time Time Spent with patient: Less than 15 minutes Medications reviewed and adjusted accordingly: Yes
[2018-04-11] MEDS ORDERED: IPRATROPIUM/ALBUTEROL 0.5-2.5 MG/3 ML AMPUL NEB ONE (14:30)
[2018-04-11] MEDS: LACTULOSE SYRUP 20 GM/30 ML UDCUP PO PRN (17:07)
--- NOTE | 2018-04-11 18:35 | PDOC PROGRESS REPORT ---
Subjective Progress Note for:: 04/11/18 Subjective:: No adverse events overnight. No new complaints. He asked for an anxiety medication because he said he was anxious. He could not really say what he was anxious about. He said he thinks that he can go back home on peritoneal dialysis, despite the fact that he decompensated on that. He thinks that the only reason that nephrologists prescribe hemodialysis is because that is how they make money. They pulled almost 4 L of fluid off with hemodialysis yesterday and his breathing has improved. He still has a lot of scrotal and lower extremity edema. 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: HEART FAILURE Physical Exam Vital Signs: Temp Pulse Resp BP Pulse Ox 99.1 F 89 18 136/76 H 100 04/11/18 15:42 04/11/18 15:42 04/11/18 15:42 04/11/18 15:42 04/11/18 15:42 Pulse Oximeter Continuous Start: 04/09/18 19:06 Freq: RTQ4 Status: Active Protocol: Document 04/11/18 14:00 [facility] (Rec: 04/11/18 14:22 [facility] [id number]) Pulse Oximetry Assessment Oxygen Saturation (92-100) 100 Oxygen Flow Rate (L/min) 2 Oxygen Delivery Method Nasal Cannula Fraction of Inspired Oxygen (FIO2) 28 Equipment Usage Equipment Standby Continuous SpO2 Machine # N 13 Additional RT Notes Other With GERIATRIC NURSE Student- Aaron Ambrosio Intake & Output 04/10/18 04/11/18 04/12/18 06:59 06:59 06:59 Intake Total 640 1170 653 Output Total 3700 3 Balance 640 -0000 650 Weight 72.2 kg 73.1 kg General appearance: PRESENT: no acute distress, cooperative, disheveled Respiratory exam: PRESENT: crackles - Bilateral, symmetrical, unlabored. ABSENT: accessory muscle use, prolonged expiratory phas, rhonchi, tachypnea, wheezes Cardiovascular exam: PRESENT: RRR, +S1, +S2 Vascular exam: PRESENT: normal capillary refill GI/Abdominal exam: PRESENT: distended - Mildly, normal bowel sounds, soft, other - He has some lower abdominal wall pitting edema. ABSENT: guarding, rebound, tenderness Gentrourinary exam: PRESENT: scrotal swelling Extremities exam: PRESENT: pedal edema, +2 edema. ABSENT: clubbing Musculoskeletal exam: PRESENT: normal inspection. ABSENT: deformity Neurological exam: PRESENT: alert, awake, oriented to person, oriented to place, oriented to time Psychiatric exam: PRESENT: appropriate affect, normal mood Skin exam: PRESENT: dry, warm Results Laboratory Results: 04/10/18 06:54 04/10/18 06:54 04/09/18 04/09/18 04/10/18 15:35 15:35 00:20 Creatine Kinase 71 57 CK-MB (CK-2) 9.29 H Troponin I 0.074 04/10/18 04/10/18 04/10/18 00:20 06:54 06:54 Creatine Kinase 51 L CK-MB (CK-2) 6.53 H 6.02 H Troponin I 0.076 0.079 Impressions: Chest X-Ray 04/09/18 15:51 IMPRESSION: Cardiomegaly with pulmonary vascular congestion and pleural effusions. Bibasilar atelectasis. Status post CABG. Assessment & Plan - Diagnosis (1) Acute on chronic diastolic congestive heart failure, NYHA class 4 Is this a current diagnosis for this admission?: Yes Plan: He does not make urine anymore so we cannot give him any Lasix. We got almost 4 L of fluid off with dialysis yesterday. Tentative plan is for hemodialysis again tomorrow. Medical optimization. (2) ESRD (end stage renal disease) Is this a current diagnosis for this admission?: Yes Plan: He thinks he can go home and do peritoneal dialysis, but he is still over 20 pounds from his dry weight after they got almost 4 L of fluid off of him yesterday. He has had a recurring cycle of this kind of hospitalization. A palliative care consult has been placed. - Time Time Spent with patient: 25-34 minutes
--- NOTE | 2018-04-11 21:03 | XCELERA REPORT ---
[address] [address] Transthoracic Echocardiogram Report Name: MIKE JULIANNA PEDERSEN JR Age: 72 yrs Gender: Male : 1945 Patient Status: Inpatient Patient Location: [place] [address]^A Study Date: 04/09/2018 07:48 PM Height: 68 in Weight: 148 lb BSA: 1.8 m2 Procedure: A two-dimensional transthoracic echocardiogram with color flow and Doppler was performed. Study Quality: Technically suboptimal. The study was technically difficult with many images being suboptimal in quality. Poor endocarial defenition. Reason For Study: Congestive heart failure History: CHF. Ordering Physician: BHAVYA MARQUEZ Performed By: Urvashi Mitchell Interpretation Summary The left ventricle is mildly to moderately dilated. There is normal left ventricular wall thickness. No True apical 2 chamber views obtained.Hence cannot comment on the apical anterior , the basal anterior, the basal inferior and apical inferior de [place].The mid anterior , the mid inferior and the rest of the LV de [place] are severely hypokinetic.LVEF is severely reduced at 25% to 30%. There is no thrombus. The right ventricle is moderate to severely dilated. The right ventricular systolic function is moderate to severely reduced. The right atrium is mild to moderately dilated. The left atrium is mildly dilated. There is no evidence of mitral valve prolapse. There is no vegetation seen on the mitral valve. There is no mitral valve stenosis. There is a moderate amount of mitral regurgitation There is no aortic valvular vegetation. There is no aortic valve stenosis There is aortic sclerosis without aortic stenosis. There is no LVOT obstruction. No aortic regurgitation is present. There is no tricuspid stenosis. There is a moderate to severe amount of tricuspid regurgitation RVSP is 44 mm of Hg , with RA mean of 10.This most likely is an underestimation of RVSP due to undersampling of the TR jet. There is no pulmonic valvular stenosis. There is a mild amount of pulmonic regurgitation There is no pericardial effusion. MMode/2D Measurements & Calculations RVDd: 3.5 cm LVIDd: 5.0 cm FS: 15.3 % Ao root diam: 3.0 cm IVSd: 1.0 cm LVIDs: 4.2 cm EDV(Teich): 117.3 ml Ao root area: 7.0 cm2 LVPWd: 1.1 cm ESV(Teich): 79.4 ml LA dimension: 4.4 cm EF(Teich): 32.3 % LVOT diam: 2.1 cm LVOT area: 3.3 cm2 Doppler Measurements & Calculations MV E max mireya: MV P1/2t max mireya: Ao V2 max: LV V1 max P.7 cm/sec 108.7 cm/sec 113.0 cm/sec 2.7 mmHg MV A max mireya: MV P1/2t: 49.1 msec Ao max P.2 mmHgLV V1 max: 39.2 cm/sec MVA(P1/2t): 4.5 cm2 CHANDRA(V,D): 2.3 cm2 79.1 cm/sec MV E/A: 2.5 MV dec slope: 648.2 cm/sec2 MV dec time: 0.15 sec MR max mireya: PA V2 max: PI end-d mireya: TR max mireya: 276.4 cm/sec 88.0 cm/sec 148.0 cm/sec 252.5 cm/sec MR max PG: PA max P.1 mmHg TR max P.5 mmHg 25.5 mmHg MV P1/2t-pr_phl: 65.7 msec Left Ventricle The left ventricle is mildly to moderately dilated. There is normal left ventricular wall thickness. No True apical 2 chamber views obtained.Hence cannot comment on the apical anterior , the basal anterior, the basal inferior and apical inferior de [place].The mid anterior , the mid inferior and the rest of the LV de [place] are severely hypokinetic.LVEF is severely reduced at 25% to 30%. Septal motion is consistent with conduction abnormality. There is no thrombus. Right Ventricle The right ventricle is moderate to severely dilated. The right ventricular systolic function is moderate to severely reduced. Atria The right atrium is mild to moderately dilated. The left atrium is mildly dilated. Mitral Valve There is mild mitral annular calcification. There is no evidence of mitral valve prolapse. There is no vegetation seen on the mitral valve. There is no mitral valve stenosis. There is a moderate amount of mitral regurgitation. Aortic Valve There is no aortic valvular vegetation. There is no aortic valve stenosis. There is aortic sclerosis without aortic stenosis. There is no LVOT obstruction. No aortic regurgitation is present. Tricuspid Valve There is no tricuspid stenosis. There is a moderate to severe amount of tricuspid regurgitation. There is mild pulmonary hypertension by echo. RVSP is 44 mm of Hg , with RA mean of 10.This most likely is an underestimation of RVSP due to undersampling of the TR jet. Pulmonic Valve There is no pulmonic valvular stenosis. There is a mild amount of pulmonic regurgitation. Great Vessels The aortic root is normal size. Effusions There is no pericardial effusion. : BHAVYA MARQUEZ > Ana Mcadams
[2018-04-11] MEDS: ZOLPIDEM TARTRATE 5 MG TABLET PO PRN (21:48)
[2018-04-11] MEDS: ATORVASTATIN CALCIUM 10 MG TABLET PO SCH (21:48)
[2018-04-11] MEDS: TRAZODONE HCL 50 MG TABLET PO PRN (21:48)
[2018-04-11 22:10] LABS: ANION GAP 16 (5-19); BLOOD UREA NITROGEN 52 mg/dL (7-20); CARBON DIOXIDE 26 mmol/L (22-30); CHLORIDE 98 mmol/L (98-107); GLUCOSE 147 mg/dL (75-110); POTASSIUM 4.9 mmol/L (3.6-5.0); SODIUM 139.7 mmol/L (137-145)
[2018-04-12] MEDS ORDERED: EPOETIN ALFA INJ 20000 UNIT/1 ML VIAL (RENAL) IV PRN (05:00)
[2018-04-12] MEDS ORDERED: NORMAL SALINE 1000 ML 1,000 ML IV PRN (05:00)
[2018-04-12] MEDS: LEVOTHYROXINE SODIUM 0.112 MG TABLET PO SCH (05:09)
[2018-04-12] MEDS: CALCIUM ACETATE 667 MG CAPSULE PO SCH ×4 (05:09→17:36)
[2018-04-12] MEDS: HEPARIN SOD (PORCINE) 5,000 UNIT/ML 1 ML SYRINGE SUBCUT SCH ×3 (05:10→21:07)
[2018-04-12 05:47] LABS: ABSOLUTE BASOPHILS # (AUTO) 0.1 10^3/uL (0.0-0.2); ABSOLUTE LYMPHOCYTES (AUTO) 0.5 10^3/uL (0.5-4.7); ABSOLUTE MONOCYTES (AUTO) 0.8 10^3/uL (0.1-1.4); BASOPHILS % (AUTO) 0.8 % (0-2); EOSINOPHILS % (AUTO) 0.6 % (0-6); HEMATOCRIT 26.7 % (37.9-51.0); HEMOGLOBIN 8.7 g/dL (13.5-17.0); MEAN CORPUSCULAR HGB CONC 32.4 g/dL (32.0-36.0); MEAN CORPUSCULAR VOLUME 96 fl (80-97); MONOCYTES % (AUTO) 10.8 % (3-13); PLATELET COUNT 105 10^3/uL (150-450); RED CELL DISTRIBUTION WIDTH 19.8 % (11.5-14.0); SEGMENTED NEUTROPHILS % (AUTO) 80.8 % (42-78); TOTAL CELLS COUNTED % (AUTO) 100 %; WHITE BLOOD COUNT 7.4 10^3/uL (4.0-10.5)
[2018-04-12 06:28] LABS: ANION GAP 14 (5-19); BLOOD UREA NITROGEN 59 mg/dL (7-20); CALCIUM 7.8 mg/dL (8.4-10.2); CARBON DIOXIDE 27 mmol/L (22-30); CHLORIDE 100 mmol/L (98-107); GLUCOSE 133 mg/dL (75-110); SODIUM 141.3 mmol/L (137-145)
[2018-04-12] MEDS: OXYCODONE-ACETAMINOPHEN 5-325 MG TABLET PO PRN ×3 (06:57→21:04)
[2018-04-12] MEDS: MIDODRINE HCL 5 MG TABLET PO SCH ×3 (12:28→17:38)
[2018-04-12] MEDS: PANTOT AC/MIN OIL/PET HY-PHL OINT 50 GM TOP SCH ×2 (12:28→17:36)
[2018-04-12] MEDS: ASPIRIN 81 MG TABLET, CHEWABLE PO SCH (12:29)
[2018-04-12] MEDS: FERROUS SULFATE 325 MG TABLET PO SCH ×3 (12:30→17:36)
[2018-04-12] MEDS: DOCUSATE SODIUM 100 MG CAPSULE PO SCH ×2 (12:30→17:36)
[2018-04-12] MEDS: MAGNESIUM OXIDE 400 MG TABLET PO SCH ×2 (12:31→17:37)
[2018-04-12] MEDS: METOPROLOL TARTRATE 25 MG TABLET PO SCH ×2 (12:31→21:04)
[2018-04-12] MEDS: FOLIC ACID 1 MG TABLET PO SCH (12:31)
[2018-04-12] MEDS: POLYETHYLENE GLYCOL 3350 POWDER 17 GM/1 PACKET PO SCH (12:31)
[2018-04-12] MEDS: TIOTROPIUM BROMIDE DPI 5 CAP/KIT (18 MCG/CAP) IH SCH ×2 (12:32→21:05)
--- NOTE | 2018-04-12 16:59 | PDOC PROGRESS REPORT ---
Subjective Progress Note for:: 04/12/18 Subjective:: No adverse events overnight. No new complaints. Clinical condition is about the same. He still insists he wants to go home and do peritoneal dialysis again. We were not able to get up with his son to see if that is going to be an option. 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: HEART FAILURE Physical Exam Vital Signs: Temp Pulse Resp BP Pulse Ox 98.7 F 106 H 16 126/72 H 97 04/12/18 15:14 04/12/18 15:14 04/12/18 15:14 04/12/18 15:14 04/12/18 15:14 Pulse Oximeter Continuous Start: 04/09/18 19:06 Freq: RTQ4 Status: Complete Protocol: Document 04/12/18 08:00 HCR (Rec: 04/12/18 12:16 HCR [email or web address]) Pulse Oximetry Assessment Equipment Usage Equipment Standby Continuous SpO2 Machine # 13 Additional RT Notes Other pt not in room Intake & Output 04/11/18 04/12/18 04/13/18 06:59 06:59 06:59 Intake Total 1170 653 932 Output Total 3700 3 Balance -2530 650 932 Weight 73.1 kg 73.1 kg General appearance: PRESENT: no acute distress, cooperative, disheveled Respiratory exam: PRESENT: crackles - Bilateral, symmetrical, unlabored. ABSENT: accessory muscle use, prolonged expiratory phas, rhonchi, tachypnea, wheezes Cardiovascular exam: PRESENT: RRR, +S1, +S2 Vascular exam: PRESENT: normal capillary refill GI/Abdominal exam: PRESENT: distended - Mildly, normal bowel sounds, soft, other - He has some lower abdominal wall pitting edema. ABSENT: guarding, rebound, tenderness Gentrourinary exam: PRESENT: scrotal swelling Extremities exam: PRESENT: pedal edema, +2 edema. ABSENT: clubbing Musculoskeletal exam: PRESENT: normal inspection. ABSENT: deformity Neurological exam: PRESENT: alert, awake, oriented to person, oriented to place, oriented to time Psychiatric exam: PRESENT: appropriate affect, normal mood Skin exam: PRESENT: dry, warm Results Laboratory Results: 04/12/18 05:04 04/12/18 05:04 04/11/18 04/12/18 04/12/18 21:45 05:04 05:04 WBC 7.4 RBC 2.80 L Hgb 8.7 L Hct 26.7 L MCV 96 MCH 31.0 MCHC 32.4 RDW 19.8 H Plt Count 105 L Seg Neutrophils % 80.8 H Lymphocytes % 7.0 L Monocytes % 10.8 Eosinophils % 0.6 Basophils % 0.8 Absolute Neutrophils 6.0 Absolute Lymphocytes 0.5 Absolute Monocytes 0.8 Absolute Eosinophils 0.0 Absolute Basophils 0.1 Sodium 139.7 141.3 Potassium 4.9 5.0 Chloride 98 100 Carbon Dioxide 26 27 Anion Gap 16 14 BUN 52 H 59 H Creatinine 6.13 H 6.92 H Est GFR ( Amer) 11 L 10 L Est GFR (Non-Af Amer) 9 L 8 L Glucose 147 H 133 H Calcium 8.0 L 7.8 L Magnesium 2.5 H 04/09/18 04/09/18 04/10/18 15:35 15:35 00:20 Creatine Kinase 71 57 CK-MB (CK-2) 9.29 H Troponin I 0.074 04/10/18 04/10/18 04/10/18 00:20 06:54 06:54 Creatine Kinase 51 L CK-MB (CK-2) 6.53 H 6.02 H Troponin I 0.076 0.079 Impressions: Chest X-Ray 04/09/18 15:51 IMPRESSION: Cardiomegaly with pulmonary vascular congestion and pleural effusions. Bibasilar atelectasis. Status post CABG. Assessment & Plan - Diagnosis (1) Acute on chronic diastolic congestive heart failure, NYHA class 4 Is this a current diagnosis for this admission?: Yes Plan: He does not make urine anymore so we cannot give him any Lasix. Continue hemodialysis for diuresis. Medical optimization. (2) ESRD (end stage renal disease) Is this a current diagnosis for this admission?: Yes Plan: Were using hemodialysis to get him down to his dry weight. He reiterates his desire to go home and do peritoneal dialysis is not of hemodialysis as he has been doing for the past couple of weeks. Were trying to contact his son to see if it is going to be an option for him. A palliative care consult has been placed. - Time Time Spent with patient: 15-24 minutes
--- NOTE | 2018-04-12 20:13 | PDOC PROGRESS REPORT ---
Subjective Progress Note for:: 04/12/18 Subjective:: I saw the patient on dialysis this morning at around 10:45 AM. He was tolerating dialysis very well. He was complaining of swelling including scrotal and penile swelling. I talked him into extending treatment to 4 hours however he complain of neck pain and back pain and so the only lasted 3 hours and 25 minutes. He tolerated ultrafiltration otherwise. We were able to take off 4500 mL of ultrafiltration. 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: HEART FAILURE Physical Exam Vital Signs: Temp Pulse Resp BP Pulse Ox 98.7 F 79 16 126/72 H 94 04/12/18 15:14 04/12/18 16:00 04/12/18 16:00 04/12/18 15:14 04/12/18 16:00 Pulse Oximeter Continuous Start: 04/09/18 19:06 Freq: RTQ4 Status: Complete Protocol: Document 04/12/18 08:00 HCR (Rec: 04/12/18 12:16 HCR [email or web address]) Pulse Oximetry Assessment Equipment Usage Equipment Standby Continuous SpO2 Machine # 13 Additional RT Notes Other pt not in room Intake & Output 04/11/18 04/12/18 04/13/18 06:59 06:59 06:59 Intake Total 1170 653 932 Output Total 3700 3 4500 Balance -2530 650 -3568 Weight 73.1 kg 73.1 kg Vitals during dialysis: Blood pressure 120/61, heart rate of 84, blood flow rate of 350 mL/min, and dialysate flow rate of 800 mL/min. Exam: General appearance: PRESENT: no acute distress, cooperative, well-developed, well-nourished Head exam: PRESENT: atraumatic, normocephalic Eye exam: PRESENT: conjunctiva pale, PERRLA. ABSENT: scleral icterus Neck exam: ABSENT: JVD Respiratory exam: PRESENT: Diminished breath sounds. ABSENT: crackles, rales, rhonchi, unlabored, wheezes Cardiovascular exam: PRESENT: Irregularly irregular rate rhythm -+S1, +S2. ABSENT: diastolic murmur, systolic murmur GI/Abdominal exam: PRESENT: normal bowel sounds, soft. He has significant scrotal and penile swelling ABSENT: guarding, mass, tenderness Extremities exam: Grade 2 bilateral lower extremity edema edema Neurological exam: PRESENT: alert, awake, oriented to person, place and time. Skin exam: PRESENT: dry, warm, Results Laboratory Results: 04/12/18 05:04 04/12/18 05:04 04/11/18 04/12/18 04/12/18 21:45 05:04 05:04 WBC 7.4 RBC 2.80 L Hgb 8.7 L Hct 26.7 L MCV 96 MCH 31.0 MCHC 32.4 RDW 19.8 H Plt Count 105 L Seg Neutrophils % 80.8 H Lymphocytes % 7.0 L Monocytes % 10.8 Eosinophils % 0.6 Basophils % 0.8 Absolute Neutrophils 6.0 Absolute Lymphocytes 0.5 Absolute Monocytes 0.8 Absolute Eosinophils 0.0 Absolute Basophils 0.1 Sodium 139.7 141.3 Potassium 4.9 5.0 Chloride 98 100 Carbon Dioxide 26 27 Anion Gap 16 14 BUN 52 H 59 H Creatinine 6.13 H 6.92 H Est GFR ( Amer) 11 L 10 L Est GFR (Non-Af Amer) 9 L 8 L Glucose 147 H 133 H Calcium 8.0 L 7.8 L Magnesium 2.5 H 04/09/18 04/09/18 04/10/18 15:35 15:35 00:20 Creatine Kinase 71 57 CK-MB (CK-2) 9.29 H Troponin I 0.074 04/10/18 04/10/18 04/10/18 00:20 06:54 06:54 Creatine Kinase 51 L CK-MB (CK-2) 6.53 H 6.02 H Troponin I 0.076 0.079 Impressions: Chest X-Ray 04/09/18 15:51 IMPRESSION: Cardiomegaly with pulmonary vascular congestion and pleural effusions. Bibasilar atelectasis. Status post CABG. Assessment & Plan - Diagnosis (1) End-stage renal disease (ESRD) Is this a current diagnosis for this admission?: Yes Plan: We did dialysis today for 3 hours and 25 minutes, using the patient's right IJ P ermCath, with 2 potassium bath, blood flow rate of 350 mL per minute, dialysate flow rate of 800 mL per minute, ultrafiltration 4.5-5 L, no heparin and Procrit with 20,000 units during dialysis intravenously. Patient tolerated dialysis well without any problems. (2) Acute on chronic diastolic congestive heart failure, NYHA class 4 Is this a current diagnosis for this admission?: Yes Plan: Currently compensated. (3) Hyperkalemia Is this a current diagnosis for this admission?: Yes Plan: Resolved with dialysis. (4) Anemia in chronic kidney disease (CKD) Is this a current diagnosis for this admission?: Yes Plan: Procrit given during dialysis today. (5) Hyperphosphatemia Is this a current diagnosis for this admission?: Yes Plan: Continue phosphorus binders. (6) Venous insufficiency of both lower extremities Is this a current diagnosis for this admission?: Yes - Time Time with patient: 15-25 minutes
[2018-04-12] MEDS: ZOLPIDEM TARTRATE 5 MG TABLET PO PRN (21:03)
[2018-04-12] MEDS: TRAZODONE HCL 50 MG TABLET PO PRN (21:04)
[2018-04-12] MEDS: ATORVASTATIN CALCIUM 10 MG TABLET PO SCH (21:04)
[2018-04-13] MEDS: OXYCODONE-ACETAMINOPHEN 5-325 MG TABLET PO PRN ×3 (05:15→18:53)
[2018-04-13] MEDS: LEVOTHYROXINE SODIUM 0.112 MG TABLET PO SCH (05:16)
[2018-04-13] MEDS: CALCIUM ACETATE 667 MG CAPSULE PO SCH ×3 (05:16→17:31)
[2018-04-13] MEDS: HEPARIN SOD (PORCINE) 5,000 UNIT/ML 1 ML SYRINGE SUBCUT SCH ×3 (05:16→21:13)
[2018-04-13] MEDS: FERROUS SULFATE 325 MG TABLET PO SCH ×3 (09:18→17:31)
[2018-04-13] MEDS: MAGNESIUM OXIDE 400 MG TABLET PO SCH ×2 (09:18→17:31)
[2018-04-13] MEDS: DOCUSATE SODIUM 100 MG CAPSULE PO SCH ×2 (09:18→17:31)
[2018-04-13] MEDS: LACTULOSE SYRUP 20 GM/30 ML UDCUP PO PRN (09:18)
[2018-04-13] MEDS: METOPROLOL TARTRATE 25 MG TABLET PO SCH ×2 (09:18→21:14)
[2018-04-13] MEDS: MULTIVIT-STRESS FORMULA/ZINC TABLET PO SCH (09:18)
[2018-04-13] MEDS: POLYETHYLENE GLYCOL 3350 POWDER 17 GM/1 PACKET PO SCH (09:18)
[2018-04-13] MEDS: ASPIRIN 81 MG TABLET, CHEWABLE PO SCH (09:19)
[2018-04-13] MEDS: FOLIC ACID 1 MG TABLET PO SCH (09:19)
[2018-04-13] MEDS: MIDODRINE HCL 5 MG TABLET PO SCH ×3 (09:34→18:05)
[2018-04-13] MEDS: PANTOT AC/MIN OIL/PET HY-PHL OINT 50 GM TOP SCH ×2 (10:03→18:44)
[2018-04-13] MEDS: IPRATROPIUM/ALBUTEROL 0.5-2.5 MG/3 ML AMPUL NEB PRN ×2 (12:52→20:34)
--- NOTE | 2018-04-13 16:30 | PDOC PROGRESS REPORT ---
Subjective Progress Note for:: 04/13/18 Subjective:: No adverse events overnight. He got about 4.5 L of fluid off via hemodialysis yesterday. He is perseverating on the fact that he wants to go home and do peritoneal dialysis because hemodialysis just makes him feel bad. I told him he would have to take that up with his casing operator. Overall he still has a lot of swelling but his swelling has come down considerably. 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: HEART FAILURE Physical Exam Vital Signs: Temp Pulse Resp BP Pulse Ox 98.3 F 111 H 20 121/81 95 04/13/18 11:29 04/13/18 12:52 04/13/18 12:52 04/13/18 11:29 04/13/18 12:52 Pulse Oximeter Continuous Start: 04/09/18 19:06 Freq: RTQ4 Status: Complete Protocol: Document 04/12/18 08:00 HCR (Rec: 04/12/18 12:16 HCR [email or web address]) Pulse Oximetry Assessment Equipment Usage Equipment Standby Continuous SpO2 Machine # 13 Additional RT Notes Other pt not in room Intake & Output 04/12/18 04/13/18 04/14/18 06:59 06:59 06:59 Intake Total 653 1412 600 Output Total 3 4500 Balance 650 -3088 600 Weight 73.1 kg 73.1 kg General appearance: PRESENT: no acute distress, cooperative, disheveled Respiratory exam: PRESENT: crackles - Bilateral, symmetrical, unlabored. ABSENT: accessory muscle use, prolonged expiratory phas, rhonchi, tachypnea, wheezes Cardiovascular exam: PRESENT: RRR, +S1, +S2 Vascular exam: PRESENT: normal capillary refill GI/Abdominal exam: PRESENT: distended - Mildly, normal bowel sounds, soft, other - He has some lower abdominal wall pitting edema. ABSENT: guarding, rebound, tenderness Gentrourinary exam: PRESENT: scrotal swelling Extremities exam: PRESENT: pedal edema, +2 edema. ABSENT: clubbing Musculoskeletal exam: PRESENT: normal inspection. ABSENT: deformity Neurological exam: PRESENT: alert, awake, oriented to person, oriented to place, oriented to time Psychiatric exam: PRESENT: appropriate affect, normal mood Skin exam: PRESENT: dry, warm Results Laboratory Results: 04/12/18 05:04 04/12/18 05:04 0204/09/18 04/10/18 15:35 15:35 00:20 Creatine Kinase 71 57 CK-MB (CK-2) 9.29 H Troponin I 0.074 04/10/18 04/10/18 04/10/18 00:20 06:54 06:54 Creatine Kinase 51 L CK-MB (CK-2) 6.53 H 6.02 H Troponin I 0.076 0.079 Impressions: Chest X-Ray 04/09/18 15:51 IMPRESSION: Cardiomegaly with pulmonary vascular congestion and pleural effusions. Bibasilar atelectasis. Status post CABG. Assessment & Plan - Diagnosis (1) Acute on chronic diastolic congestive heart failure, NYHA class 4 Is this a current diagnosis for this admission?: Yes Plan: He does not make urine anymore so we cannot give him any Lasix. Continue hemodialysis for diuresis. Medical optimization. His symptoms are improving with dialysis. (2) ESRD (end stage renal disease) Is this a current diagnosis for this admission?: Yes Plan: Were using hemodialysis to get him down to his dry weight. He reiterates his desire to go home and do peritoneal dialysis is not of hemodialysis as he has been doing for the past couple of weeks. I am not sure it is going to be an option for him. A palliative care consult was placed but the patient was not receptive. - Time Time Spent with patient: 25-34 minutes
[2018-04-13] MEDS: ATORVASTATIN CALCIUM 10 MG TABLET PO SCH (21:14)
[2018-04-13] MEDS: TIOTROPIUM BROMIDE DPI 5 CAP/KIT (18 MCG/CAP) IH SCH (21:15)
[2018-04-13] MEDS: TRAZODONE HCL 50 MG TABLET PO PRN (21:22)
[2018-04-13] MEDS: ZOLPIDEM TARTRATE 5 MG TABLET PO PRN (21:23)
[2018-04-13] MEDS ORDERED: NITROGLYCERIN 0.4 MG/TAB 25 TAB/BOTTLE SL PRN (23:02)
[2018-04-13 23:57] LABS: CREATINE KINASE MB 5.81 ng/mL (<4.55); TROPONIN I 0.08 ng/mL
[2018-04-14] MEDS ORDERED: METOPROLOL TARTRATE PF/INJ 5 MG/5 ML SDV IV ONE (02:45)
[2018-04-14] MEDS: OXYCODONE-ACETAMINOPHEN 5-325 MG TABLET PO PRN ×3 (03:43→17:54)
[2018-04-14] MEDS ORDERED: NORMAL SALINE 1000 ML 1,000 ML IV PRN (05:00)
[2018-04-14] MEDS ORDERED: EPOETIN ALFA INJ 20000 UNIT/1 ML VIAL (RENAL) IV PRN (05:00)
[2018-04-14] MEDS: HEPARIN SOD (PORCINE) 5,000 UNIT/ML 1 ML SYRINGE SUBCUT SCH ×3 (05:07→21:14)
[2018-04-14] MEDS: CALCIUM ACETATE 667 MG CAPSULE PO SCH ×3 (05:42→18:05)
[2018-04-14] MEDS: LEVOTHYROXINE SODIUM 0.112 MG TABLET PO SCH (05:43)
--- NOTE | 2018-04-14 08:58 | EKG REPORT ---
SEVERITY:- ABNORMAL ECG - ATRIAL FIBRILLATION, V-RATE 76-100 LEFT BUNDLE BRANCH BLOCK INFERIOR Q WAVES, POSSIBLY DUE TO LBBB : Confirmed by: Ana Mcadams MD 14-Apr-2018 08:58:11
[2018-04-14] MEDS: MAGNESIUM OXIDE 400 MG TABLET PO SCH ×2 (09:53→18:05)
[2018-04-14] MEDS: FERROUS SULFATE 325 MG TABLET PO SCH ×3 (09:53→18:05)
[2018-04-14] MEDS: METOPROLOL TARTRATE 25 MG TABLET PO SCH ×2 (09:53→21:14)
[2018-04-14] MEDS: MULTIVIT-STRESS FORMULA/ZINC TABLET PO SCH (09:53)
[2018-04-14] MEDS: ASPIRIN 81 MG TABLET, CHEWABLE PO SCH (09:53)
[2018-04-14] MEDS: LACTULOSE SYRUP 20 GM/30 ML UDCUP PO PRN (09:53)
[2018-04-14] MEDS: BENZOCAINE/MENTHOL SORE THROAT LOZENGE BUCCAL PRN ×2 (09:53→22:35)
[2018-04-14] MEDS: DOCUSATE SODIUM 100 MG CAPSULE PO SCH ×2 (09:54→18:05)
[2018-04-14] MEDS: FOLIC ACID 1 MG TABLET PO SCH (09:54)
[2018-04-14] MEDS: POLYETHYLENE GLYCOL 3350 POWDER 17 GM/1 PACKET PO SCH (09:54)
[2018-04-14] MEDS: MIDODRINE HCL 5 MG TABLET PO SCH ×3 (10:03→18:21)
[2018-04-14] MEDS: PANTOT AC/MIN OIL/PET HY-PHL OINT 50 GM TOP SCH ×2 (10:03→18:06)
[2018-04-14 10:14] LABS: HEMATOCRIT 30.7 % (37.9-51.0); HEMOGLOBIN 9.7 g/dL (13.5-17.0); MEAN CORPUSCULAR HEMOGLOBIN 30.5 pg (27.0-33.4); MEAN CORPUSCULAR HGB CONC 31.5 g/dL (32.0-36.0); MEAN CORPUSCULAR VOLUME 97 fl (80-97); PLATELET COUNT 106 10^3/uL (150-450); RED BLOOD COUNT 3.17 10^6/uL (4.35-5.55); RED CELL DISTRIBUTION WIDTH 20.8 % (11.5-14.0); WHITE BLOOD COUNT 8.8 10^3/uL (4.0-10.5)
[2018-04-14 10:30] LABS: ANION GAP 15 (5-19); BLOOD UREA NITROGEN 59 mg/dL (7-20); CALCIUM 7.8 mg/dL (8.4-10.2); CARBON DIOXIDE 27 mmol/L (22-30); CHLORIDE 99 mmol/L (98-107); GLUCOSE 129 mg/dL (75-110); POTASSIUM 4.6 mmol/L (3.6-5.0); SODIUM 141.4 mmol/L (137-145)
--- NOTE | 2018-04-14 17:07 | PDOC PROGRESS REPORT ---
Subjective Progress Note for:: 04/14/18 Subjective:: He was complaining of some chest pain last night and had a workup done that was unremarkable. He was complaining of some chest pain to his nurse and by the time she came back into check on him he was watching TV and eating ice cream and looked comfortable. He told me today that he wanted a sleeping pill, and he also told me that he felt like he was having trouble breathing but he was talking in complete sentences and I had to cut him off so that I could say marycarmen ething. He refused to do dialysis this morning because he did not like the nurse that was going to do it so he wanted to wait until a different nurse would be able to do his dialysis. 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: HEART FAILURE Physical Exam Vital Signs: Temp Pulse Resp BP Pulse Ox 98.2 F 86 18 134/76 H 98 04/14/18 12:04 04/14/18 14:35 04/14/18 14:35 04/14/18 12:04 04/14/18 14:35 Pulse Oximeter Continuous Start: 04/09/18 19:06 Freq: RTQ4 Status: Complete Protocol: Document 04/12/18 08:00 HCR (Rec: 04/12/18 12:16 HCR [email or web address]) Pulse Oximetry Assessment Equipment Usage Equipment Standby Continuous SpO2 Machine # 13 Additional RT Notes Other pt not in room Intake & Output 04/13/18 04/14/18 04/15/18 06:59 06:59 06:59 Intake Total 1412 1060 474 Output Total 4500 Balance -3088 1060 474 Weight 73.1 kg 73.1 kg General appearance: PRESENT: no acute distress, cooperative, disheveled Respiratory exam: PRESENT: crackles - Bilateral, symmetrical, unlabored. ABSENT: accessory muscle use, prolonged expiratory phas, rhonchi, tachypnea, wheezes Cardiovascular exam: PRESENT: RRR, +S1, +S2 Vascular exam: PRESENT: normal capillary refill GI/Abdominal exam: PRESENT: distended - Mildly, normal bowel sounds, soft, other - He has some lower abdominal wall pitting edema. ABSENT: guarding, rebound, tenderness Gentrourinary exam: PRESENT: scrotal swelling Extremities exam: PRESENT: pedal edema, +2 edema. ABSENT: clubbing Musculoskeletal exam: PRESENT: normal inspection. ABSENT: deformity Neurological exam: PRESENT: alert, awake, oriented to person, oriented to place, oriented to time Psychiatric exam: PRESENT: appropriate affect, normal mood Skin exam: PRESENT: dry, warm Results Laboratory Results: 04/14/18 09:39 04/14/18 09:39 04/14/18 04/14/18 09:39 09:39 WBC 8.8 RBC 3.17 L Hgb 9.7 L Hct 30.7 L MCV 97 MCH 30.5 MCHC 31.5 L RDW 20.8 H Plt Count 106 L Sodium 141.4 Potassium 4.6 Chloride 99 Carbon Dioxide 27 Anion Gap 15 BUN 59 H Creatinine 6.61 H Est GFR ( Amer) 10 L Est GFR (Non-Af Amer) 8 L Glucose 129 H Calcium 7.8 L 04/09/18 04/09/18 04/10/18 15:35 15:35 00:20 Creatine Kinase 71 57 CK-MB (CK-2) 9.29 H Troponin I 0.074 04/10/18 04/10/18 04/10/18 00:20 06:54 06:54 Creatine Kinase 51 L CK-MB (CK-2) 6.53 H 6.02 H Troponin I 0.076 0.079 04/13/18 04/13/18 23:10 23:10 Creatine Kinase 46 L CK-MB (CK-2) 5.81 H Troponin I 0.080 Impressions: Chest X-Ray 04/09/18 15:51 IMPRESSION: Cardiomegaly with pulmonary vascular congestion and pleural effusions. Bibasilar atelectasis. Status post CABG. Assessment & Plan - Diagnosis (1) Acute on chronic diastolic congestive heart failure, NYHA class 4 Is this a current diagnosis for this admission?: Yes Plan: He does not make urine anymore so we cannot give him any Lasix. Continue hemodialysis for diuresis. Medical optimization. His symptoms are improving with dialysis. (2) ESRD (end stage renal disease) Is this a current diagnosis for this admission?: Yes Plan: Were using hemodialysis to get him down to his dry weight. He reiterates his desire to go home and do peritoneal dialysis is not of hemodialysis as he has been doing for the past couple of weeks. I am not sure it is going to be an option for him. A palliative care consult was placed but the patient was not receptive. - Time Time Spent with patient: 25-34 minutes
--- NOTE | 2018-04-14 18:32 | PDOC PROGRESS REPORT ---
Subjective Progress Note for:: 04/14/18 Subjective:: I saw the patient during dialysis treatment. He was very comfortable and sleeping but arousable. Vital signs were stable throughout dialysis treatment with ultrafiltration. He was able to sustain 3 hours and 45 minutes of treatment. We were able to get a good ultrafiltration of 4700 mL today. He was hemodynamically stable throughout the treatment. 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: HEART FAILURE Physical Exam Vital Signs: Temp Pulse Resp BP Pulse Ox 98.2 F 86 18 134/76 H 98 04/14/18 12:04 04/14/18 14:35 04/14/18 14:35 04/14/18 12:04 04/14/18 14:35 Pulse Oximeter Continuous Start: 04/09/18 19:06 Freq: RTQ4 Status: Complete Protocol: Document 04/12/18 08:00 HCR (Rec: 04/12/18 12:16 HCR [email or web address]) Pulse Oximetry Assessment Equipment Usage Equipment Standby Continuous SpO2 Machine # 13 Additional RT Notes Other pt not in room Intake & Output 04/13/18 04/14/18 04/15/18 06:59 06:59 06:59 Intake Total 1412 1060 474 Output Total 4500 Balance -3088 1060 474 Weight 73.1 kg 73.1 kg Vitals during dialysis: Blood pressure 155/61, heart rate of 89, blood flow rate of 350 mL/min, the dialysate flow rate of 800 mL/min Exam: General appearance: PRESENT: no acute distress, cooperative, well-developed, well-nourished Head exam: PRESENT: atraumatic, normocephalic Eye exam: PRESENT: conjunctiva pale, PERRLA. ABSENT: scleral icterus Neck exam: ABSENT: JVD Respiratory exam: PRESENT: Normal breath sounds. ABSENT: crackles, rales, rhonchi, unlabored, wheezes Cardiovascular exam: PRESENT: Irregular rate rhythm -+S1, +S2. ABSENT: diastolic murmur, systolic murmur GI/Abdominal exam: PRESENT: normal bowel sounds, soft. Penile and scrotal swelling ABSENT: guarding, mass, tenderness Extremities exam: Is slowly improving grade 2 bilateral lower extremity pitting edema Neurological exam: PRESENT: alert, awake, oriented to person, place and time. Skin exam: PRESENT: dry, warm, Results Laboratory Results: 04/14/18 09:39 04/14/18 09:39 04/14/18 04/14/18 09:39 09:39 WBC 8.8 RBC 3.17 L Hgb 9.7 L Hct 30.7 L MCV 97 MCH 30.5 MCHC 31.5 L RDW 20.8 H Plt Count 106 L Sodium 141.4 Potassium 4.6 Chloride 99 Carbon Dioxide 27 Anion Gap 15 BUN 59 H Creatinine 6.61 H Est GFR ( Amer) 10 L Est GFR (Non-Af Amer) 8 L Glucose 129 H Calcium 7.8 L 04/09/18 04/09/18 04/10/18 15:35 15:35 00:20 Creatine Kinase 71 57 CK-MB (CK-2) 9.29 H Troponin I 0.074 04/10/18 04/10/18 04/10/18 00:20 06:54 06:54 Creatine Kinase 51 L CK-MB (CK-2) 6.53 H 6.02 H Troponin I 0.076 0.079 04/13/18 04/13/18 23:10 23:10 Creatine Kinase 46 L CK-MB (CK-2) 5.81 H Troponin I 0.080 Impressions: Chest X-Ray 04/09/18 15:51 IMPRESSION: Cardiomegaly with pulmonary vascular congestion and pleural effusions. Bibasilar atelectasis. Status post CABG. Assessment & Plan - Diagnosis (1) End-stage renal disease (ESRD) Is this a current diagnosis for this admission?: Yes Plan: We did dialysis today for 3 hours and 50 minutes, using the patient's right IJ PermCath, with 2 potassium bath, blood flow rate of 350 mL per minute, dialysate flow rate of 800 mL per minute, ultrafiltration 4700 mL as tolerated, no heparin and Procrit with 20,000 units during dialysis intravenously. Patient was monito red and there was no other issues throughout dialysis treatment. (2) Acute on chronic diastolic congestive heart failure, NYHA class 4 Is this a current diagnosis for this admission?: Yes Plan: Currently compensated. (3) Hyperkalemia Is this a current diagnosis for this admission?: Yes Plan: Resolved with dialysis. (4) Anemia in chronic kidney disease (CKD) Is this a current diagnosis for this admission?: Yes Plan: Procrit given during dialysis today. (5) Hyperphosphatemia Is this a current diagnosis for this admission?: Yes Plan: Continue phosphorus binders. (6) Venous insufficiency of both lower extremities Is this a current diagnosis for this admission?: Yes - Time Time with patient: 15-25 minutes
[2018-04-14] MEDS: TIOTROPIUM BROMIDE DPI 5 CAP/KIT (18 MCG/CAP) IH SCH (21:13)
[2018-04-14] MEDS: ATORVASTATIN CALCIUM 10 MG TABLET PO SCH (21:14)
[2018-04-14] MEDS: TRAZODONE HCL 50 MG TABLET PO PRN (22:35)
[2018-04-14] MEDS: ZOLPIDEM TARTRATE 5 MG TABLET PO PRN (22:35)
[2018-04-15] MEDS: OXYCODONE-ACETAMINOPHEN 5-325 MG TABLET PO PRN ×3 (05:16→18:27)
[2018-04-15] MEDS: LEVOTHYROXINE SODIUM 0.112 MG TABLET PO SCH (05:17)
[2018-04-15] MEDS: CALCIUM ACETATE 667 MG CAPSULE PO SCH ×3 (05:17→17:58)
[2018-04-15] MEDS: HEPARIN SOD (PORCINE) 5,000 UNIT/ML 1 ML SYRINGE SUBCUT SCH ×3 (05:17→21:24)
[2018-04-15] MEDS: LACTULOSE SYRUP 20 GM/30 ML UDCUP PO PRN (09:08)
[2018-04-15] MEDS: POLYETHYLENE GLYCOL 3350 POWDER 17 GM/1 PACKET PO SCH (09:10)
[2018-04-15] MEDS: DOCUSATE SODIUM 100 MG CAPSULE PO SCH ×2 (09:10→17:59)
[2018-04-15] MEDS: FERROUS SULFATE 325 MG TABLET PO SCH ×3 (09:11→17:59)
[2018-04-15] MEDS: MULTIVIT-STRESS FORMULA/ZINC TABLET PO SCH (09:11)
[2018-04-15] MEDS: FOLIC ACID 1 MG TABLET PO SCH (09:11)
[2018-04-15] MEDS: MAGNESIUM OXIDE 400 MG TABLET PO SCH ×2 (09:11→17:59)
[2018-04-15] MEDS: ASPIRIN 81 MG TABLET, CHEWABLE PO SCH (09:11)
[2018-04-15] MEDS: METOPROLOL TARTRATE 25 MG TABLET PO SCH ×2 (09:12→21:29)
[2018-04-15] MEDS: MIDODRINE HCL 5 MG TABLET PO SCH ×3 (09:13→18:00)
[2018-04-15] MEDS: PANTOT AC/MIN OIL/PET HY-PHL OINT 50 GM TOP SCH ×2 (09:20→18:03)
[2018-04-15] MEDS: BENZOCAINE/MENTHOL SORE THROAT LOZENGE BUCCAL PRN (14:13)
--- NOTE | 2018-04-15 15:29 | PDOC PROGRESS REPORT ---
Subjective Progress Note for:: 04/15/18 Subjective:: No adverse events overnight. Had dialysis yesterday and got nearly 5 L off. He is looking a lot better. He says hemodialysis makes him feel really bad. He still insisting he wants to do peritoneal dialysis and I told him he is going to have to take that up with his religion department chair. 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: HEART FAILURE Physical Exam Vital Signs: Temp Pulse Resp BP Pulse Ox 98.7 F 85 16 110/62 100 04/15/18 12:00 04/15/18 12:00 04/15/18 12:00 04/15/18 12:00 04/15/18 12:00 Pulse Oximeter Continuous Start: 04/09/18 19:06 Freq: RTQ4 Status: Complete Protocol: Document 04/12/18 08:00 HCR (Rec: 04/12/18 12:16 HCR [email or web address]) Pulse Oximetry Assessment Equipment Usage Equipment Standby Continuous SpO2 Machine # 13 Additional RT Notes Other pt not in room Intake & Output 04/14/18 04/15/18 04/16/18 06:59 06:59 06:59 Intake Total 1060 834 Output Total 4700 Balance 1060 -3866 Weight 73.1 kg 66 kg General appearance: PRESENT: no acute distress, cooperative, disheveled Respiratory exam: PRESENT: Clear to auscultation bilaterally, symmetrical, unlabored. ABSENT: accessory muscle use, prolonged expiratory phase, rhonchi, tachypnea, wheezes Cardiovascular exam: PRESENT: RRR, +S1, +S2 Vascular exam: PRESENT: normal capillary refill GI/Abdominal exam: PRESENT: distended - Mildly, normal bowel sounds, soft, other - He has trace lower abdominal wall pitting edema. ABSENT: guarding, rebound, tenderness Gentrourinary exam: PRESENT: Significantly improved scrotal swelling Extremities exam: PRESENT: Trace pedal edema, trace bilateral leg edema. ABSENT: clubbing Musculoskeletal exam: PRESENT: normal inspection. ABSENT: deformity Neurological exam: PRESENT: alert, awake, oriented to person, oriented to place, oriented to time Psychiatric exam: PRESENT: appropriate affect, normal mood Skin exam: PRESENT: dry, warm, evidence of long-standing chronic venous insuff iciency in the lower extremities Results Laboratory Results: 04/14/18 09:39 04/14/18 09:39 04/09/18 04/09/18 04/10/18 15:35 15:35 00:20 Creatine Kinase 71 57 CK-MB (CK-2) 9.29 H Troponin I 0.074 04/10/18 04/10/18 04/10/18 00:20 06:54 06:54 Creatine Kinase 51 L CK-MB (CK-2) 6.53 H 6.02 H Troponin I 0.076 0.079 04/13/18 04/13/18 23:10 23:10 Creatine Kinase 46 L CK-MB (CK-2) 5.81 H Troponin I 0.080 Impressions: Chest X-Ray 04/09/18 15:51 IMPRESSION: Cardiomegaly with pulmonary vascular congestion and pleural effusions. Bibasilar atelectasis. Status post CABG. Assessment & Plan - Diagnosis (1) Acute on chronic diastolic congestive heart failure, NYHA class 4 Is this a current diagnosis for this admission?: Yes Plan: He does not make urine anymore so we cannot give him any Lasix. Continue hemodialysis for diuresis. Medical optimization. His symptoms are improving with dialysis. He is not quite euvolemic yet, but he has substantially impr liz. (2) ESRD (end stage renal disease) Is this a current diagnosis for this admission?: Yes Plan: Were using hemodialysis to get him down to his dry weight. He reiterates his desire to go home and do peritoneal dialysis instead of hemodialysis as he has been doing for the past couple of weeks. I am not sure it is going to be an option for him. A palliative care consult was placed but the patient was not receptive. Once we get him down to his dry weight we need to determine whether or not he is going to go back to the long-term facility versus home with his son to do peritoneal dialysis. - Time Time Spent with patient: 25-34 minutes
[2018-04-15] MEDS ORDERED: NYSTATIN/DEXAMETH/DIPHEN SUSP 120 ML PO ONE (18:20)
[2018-04-15] MEDS: NYSTATIN/DEXAMETH/DIPHEN SUSP 120 ML PO SCH ×2 (18:27→21:29)
[2018-04-15] MEDS: ATORVASTATIN CALCIUM 10 MG TABLET PO SCH (21:29)
[2018-04-15] MEDS: TRAZODONE HCL 50 MG TABLET PO PRN (21:29)
[2018-04-15] MEDS: ZOLPIDEM TARTRATE 5 MG TABLET PO PRN (21:29)
[2018-04-15] MEDS: TIOTROPIUM BROMIDE DPI 5 CAP/KIT (18 MCG/CAP) IH SCH (21:29)
[2018-04-15 22:48] LABS: ANION GAP 15 (5-19); BLOOD UREA NITROGEN 50 mg/dL (7-20); CALCIUM 8.1 mg/dL (8.4-10.2); CARBON DIOXIDE 28 mmol/L (22-30); CHLORIDE 96 mmol/L (98-107); GLUCOSE 130 mg/dL (75-110); PHOSPHORUS 5.9 mg/dL (2.5-4.5); SODIUM 139.1 mmol/L (137-145)
[2018-04-16] MEDS: OXYCODONE-ACETAMINOPHEN 5-325 MG TABLET PO PRN ×3 (00:53→17:22)
[2018-04-16] MEDS: LEVOTHYROXINE SODIUM 0.112 MG TABLET PO SCH (06:43)
[2018-04-16] MEDS: CALCIUM ACETATE 667 MG CAPSULE PO SCH ×3 (06:43→17:24)
[2018-04-16] MEDS: HEPARIN SOD (PORCINE) 5,000 UNIT/ML 1 ML SYRINGE SUBCUT SCH ×3 (06:44→21:24)
[2018-04-16] MEDS ORDERED: GENTAMICIN SULFATE 0.1% OINTMENT 15 GM TP PRN (10:43)
[2018-04-16] MEDS: POLYETHYLENE GLYCOL 3350 POWDER 17 GM/1 PACKET PO SCH (11:00)
[2018-04-16] MEDS: ASPIRIN 81 MG TABLET, CHEWABLE PO SCH (11:01)
[2018-04-16] MEDS: MULTIVIT-STRESS FORMULA/ZINC TABLET PO SCH (11:02)
[2018-04-16] MEDS: METOPROLOL TARTRATE 25 MG TABLET PO SCH ×2 (11:02→21:24)
[2018-04-16] MEDS: DOCUSATE SODIUM 100 MG CAPSULE PO SCH ×2 (11:02→17:22)
[2018-04-16] MEDS: FOLIC ACID 1 MG TABLET PO SCH (11:02)
[2018-04-16] MEDS: FERROUS SULFATE 325 MG TABLET PO SCH ×3 (11:02→17:22)
[2018-04-16] MEDS: MIDODRINE HCL 5 MG TABLET PO SCH ×3 (11:03→17:23)
[2018-04-16] MEDS: NYSTATIN/DEXAMETH/DIPHEN SUSP 120 ML PO SCH ×4 (11:03→21:25)
[2018-04-16] MEDS: PANTOT AC/MIN OIL/PET HY-PHL OINT 50 GM TOP SCH ×2 (11:05→17:29)
[2018-04-16] MEDS: IPRATROPIUM/ALBUTEROL 0.5-2.5 MG/3 ML AMPUL NEB PRN (17:17)
--- NOTE | 2018-04-16 17:41 | PDOC PROGRESS REPORT ---
Subjective Progress Note for:: 04/16/18 Subjective:: No adverse events overnight. No new complaints. He again perseverates on the idea of going home and doing peritoneal dialysis. His son was here today and I got a chance to talk to him. I reminded the patient that he had been doing peritoneal dialysis and had to go on hemodialysis because, among other things, they were not getting enough fluid off. We have been getting 8-10 pounds of fluid off of him with hemodialysis each session. 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: HEART FAILURE Physical Exam Vital Signs: Temp Pulse Resp BP Pulse Ox 98.2 F 87 16 136/71 H 95 04/16/18 15:16 04/16/18 17:19 04/16/18 17:19 04/16/18 15:16 04/16/18 17:19 Pulse Oximeter Continuous Start: 04/09/18 19:06 Freq: RTQ4 Status: Complete Protocol: Document 04/12/18 08:00 HCR (Rec: 04/12/18 12:16 HCR [email or web address]) Pulse Oximetry Assessment Equipment Usage Equipment Standby Continuous SpO2 Machine # 13 Additional RT Notes Other pt not in room Intake & Output 04/15/18 04/16/18 04/17/18 06:59 06:59 06:59 Intake Total 834 1345 532 Output Total 4700 0 Balance -3866 1345 532 Weight 66 kg 66 kg General appearance: PRESENT: no acute distress, cooperative, disheveled Respiratory exam: PRESENT: Clear to auscultation bilaterally, symmetrical, unlabored. ABSENT: accessory muscle use, prolonged expiratory phase, rhonchi, tachypnea, wheezes Cardiovascular exam: PRESENT: RRR, +S1, +S2 Vascular exam: PRESENT: normal capillary refill GI/Abdominal exam: PRESENT: distended - Mildly, normal bowel sounds, soft, other - He has trace lower abdominal wall pitting edema. ABSENT: guarding, rebound, tenderness Gentrourinary exam: PRESENT: Significantly improved scrotal swelling Extremities exam: PRESENT: Trace pedal edema, trace bilateral leg edema. ABSENT: clubbing Musculoskeletal exam: PRESENT: normal inspection. ABSENT: deformity Neurological exam: PRESENT: alert, awake, oriented to person, oriented to place, oriented to time Psychiatric exam: PRESENT: appropriate affect, normal mood Skin exam: PRESENT: dry, warm, evidence of long-standing chronic venous insufficiency in the lower extremities Results Laboratory Results: 04/14/18 09:39 04/15/18 22:25 04/15/18 22:25 Sodium 139.1 Potassium 5.0 Chloride 96 L Carbon Dioxide 28 Anion Gap 15 BUN 50 H Creatinine 5.64 H Est GFR ( Amer) 12 L Est GFR (Non-Af Amer) 10 L Glucose 130 H Calcium 8.1 L Phosphorus 5.9 H Magnesium 2.7 H 04/09/18 04/09/18 04/10/18 15:35 15:35 00:20 Creatine Kinase 71 57 CK-MB (CK-2) 9.29 H Troponin I 0.074 04/10/18 04/10/18 04/10/18 00:20 06:54 06:54 Creatine Kinase 51 L CK-MB (CK-2) 6.53 H 6.02 H Troponin I 0.076 0.079 04/13/18 04/13/18 23:10 23:10 Creatine Kinase 46 L CK-MB (CK-2) 5.81 H Troponin I 0.080 Impressions: Chest X-Ray 04/09/18 15:51 IMPRESSION: Cardiomegaly with pulmonary vascular congestion and pleural effusions. Bibasilar atelectasis. Status post CABG. Assessment & Plan - Diagnosis (1) Acute on chronic diastolic congestive heart failure, NYHA class 4 Is this a current diagnosis for this admission?: Yes Plan: He does not make urine anymore so we cannot give him any Lasix. Continue hemodialysis for diuresis. Medical optimization. His symptoms are improving with dialysis. He is not quite euvolemic yet, but he has substantially improved. (2) ESRD (end stage renal disease) Is this a current diagnosis for this admission?: Yes Plan: Were using hemodialysis to get him down to his dry weight. He reiterates his desire to go home and do peritoneal dialysis instead of hemodialysis as he has been doing for the past couple of weeks. I am not sure it is going to be an option for him. A palliative care consult was placed but the patient was not receptive. Once we get him down to his dry weight we need to determine whether or not he is going to go back to the group home facility versus home with his son to do peritoneal dialysis. - Time Time Spent with patient: 25-34 minutes
[2018-04-16] MEDS: TRAZODONE HCL 50 MG TABLET PO PRN (21:23)
[2018-04-16] MEDS: LACTULOSE SYRUP 20 GM/30 ML UDCUP PO PRN (21:23)
[2018-04-16] MEDS: ATORVASTATIN CALCIUM 10 MG TABLET PO SCH (21:23)
[2018-04-16] MEDS: TIOTROPIUM BROMIDE DPI 5 CAP/KIT (18 MCG/CAP) IH SCH (21:25)
[2018-04-16] MEDS: ZOLPIDEM TARTRATE 5 MG TABLET PO PRN (22:21)
[2018-04-17] MEDS ORDERED: NORMAL SALINE 1000 ML 1,000 ML IV PRN (05:00)
[2018-04-17] MEDS ORDERED: EPOETIN ALFA INJ 20000 UNIT/1 ML VIAL (RENAL) IV PRN (05:00)
[2018-04-17] MEDS ORDERED: EPOETIN ALFA 10,000 UNIT in SYRINGE, DISPOSABLE, 1 EACH IV PRN (05:00)
[2018-04-17] MEDS: LEVOTHYROXINE SODIUM 0.112 MG TABLET PO SCH (05:36)
[2018-04-17] MEDS: OXYCODONE-ACETAMINOPHEN 5-325 MG TABLET PO PRN ×3 (05:36→19:21)
[2018-04-17] MEDS: CALCIUM ACETATE 667 MG CAPSULE PO SCH ×3 (05:37→16:33)
[2018-04-17] MEDS: HEPARIN SOD (PORCINE) 5,000 UNIT/ML 1 ML SYRINGE SUBCUT SCH ×3 (05:37→22:36)
[2018-04-17 07:03] LABS: HEMATOCRIT 31.2 % (37.9-51.0); HEMOGLOBIN 9.5 g/dL (13.5-17.0); MEAN CORPUSCULAR HEMOGLOBIN 30.1 pg (27.0-33.4); MEAN CORPUSCULAR HGB CONC 30.4 g/dL (32.0-36.0); MEAN CORPUSCULAR VOLUME 99 fl (80-97); PLATELET COUNT 120 10^3/uL (150-450); RED BLOOD COUNT 3.14 10^6/uL (4.35-5.55); RED CELL DISTRIBUTION WIDTH 21.2 % (11.5-14.0); WHITE BLOOD COUNT 7.4 10^3/uL (4.0-10.5)
[2018-04-17 07:27] LABS: ANION GAP 18 (5-19); BLOOD UREA NITROGEN 72 mg/dL (7-20); CARBON DIOXIDE 25 mmol/L (22-30); CHLORIDE 97 mmol/L (98-107); GLUCOSE 137 mg/dL (75-110); POTASSIUM 5.1 mmol/L (3.6-5.0); SODIUM 139.9 mmol/L (137-145)
--- NOTE | 2018-04-17 11:15 | PDOC PROGRESS REPORT ---
Subjective Progress Note for:: 04/17/18 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: Patient is seen on hemodialysis today. He is undergoing dialysis without any issues. He has had some fairly rigorous ultrafiltration on dialysis which has really helped him tremendously. His fluid on his legs are markedly improved even though he has got a lot of venous stasis changes.He has been extremely disappointed with the [facility] situation and does not want to go back there. He thinks he can do PD at home again which is not possible given his precarious state that he was in earlier. The other possibility would be to find a different [facility] and plan for outpatient ongoing hemodialysis. Labs and medications were reviewed with the patient. Dialysis orders were reviewed with the treating dialysis nurse. Procrit orders were issued. Physical Exam Vital Signs: Temp Pulse Resp BP Pulse Ox 97.6 F 97 19 141/79 H 97 04/16/18 23:41 04/17/18 07:00 04/16/18 23:41 04/16/18 23:41 04/17/18 02:17 Pulse Oximeter Continuous Start: 04/09/18 19:06 Freq: RTQ4 Status: Complete Protocol: Document 04/12/18 08:00 HCR (Rec: 04/12/18 12:16 HCR [email or web address]) Pulse Oximetry Assessment Equipment Usage Equipment Standby Continuous SpO2 Machine # 13 Additional RT Notes Other pt not in room Intake & Output 04/16/18 04/17/18 04/18/18 06:59 06:59 06:59 Intake Total 1345 852 Output Total 0 0 Balance 1345 852 Weight 66 kg 68.7 kg General appearance: PRESENT: no acute distress Respiratory exam: PRESENT: clear to auscultation tata. ABSENT: crackles Cardiovascular exam: PRESENT: +S1, +S2, systolic murmur GI/Abdominal exam: PRESENT: normal bowel sounds, soft. ABSENT: organomegaly, tenderness Extremities exam: PRESENT: pedal edema Neurological exam: PRESENT: alert, awake, oriented to person, oriented to place, oriented to time Psychiatric exam: PRESENT: appropriate affect Skin exam: PRESENT: mottled - Venous stasis changes in both lower extremities, r kofi. ABSENT: cyanosis Results Laboratory Results: 04/17/18 06:53 04/17/18 06:53 04/17/18 04/17/18 06:53 06:53 WBC 7.4 RBC 3.14 L Hgb 9.5 L Hct 31.2 L MCV 99 H MCH 30.1 MCHC 30.4 L RDW 21.2 H Plt Count 120 L Sodium 139.9 Potassium 5.1 H Chloride 97 L Carbon Dioxide 25 Anion Gap 18 BUN 72 H Creatinine 7.36 H Est GFR ( Amer) 9 L Est GFR (Non-Af Amer) 7 L Glucose 137 H Calcium 8.0 L 04/09/18 04/09/18 04/10/18 15:35 15:35 00:20 Creatine Kinase 71 57 CK-MB (CK-2) 9.29 H Troponin I 0.074 04/10/18 04/10/18 04/10/18 00:20 06:54 06:54 Creatine Kinase 51 L CK-MB (CK-2) 6.53 H 6.02 H Troponin I 0.076 0.079 04/13/18 04/13/18 23:10 23:10 Creatine Kinase 46 L CK-MB (CK-2) 5.81 H Troponin I 0.080 Impressions: Chest X-Ray 04/09/18 15:51 IMPRESSION: Cardiomegaly with pulmonary vascular congestion and pleural effusions. Bibasilar atelectasis. Status post CABG. Assessment & Plan - Diagnosis (1) Acute on chronic diastolic congestive heart failure, NYHA class 4 Is this a current diagnosis for this admission?: Yes Plan: Patient has responded markedly well to vigorous ultrafiltration on hemodialysis. He should continue on the same. Peritoneal dialysis is not an option for this gentleman and in the future for very obvious reasons. He is unable to do it properly along with his son who lives next door and ultrafiltration has become very very difficult on PD. I have categorically stated that patient will not be able to go back on PD in the future. He has responded very well clinically with the removal of large amounts of fluid. From cardiology and a renal perspective he is ready for discharge to [facility] and continuation of outpatient therapy on hemodialysis. (2) Hyperkalemia Is this a current diagnosis for this admission?: Yes Plan: Should respond to hemodialysis. Advised appropriate dietary restrictions. (3) Anemia in chronic kidney disease (CKD) Is this a current diagnosis for this admission?: Yes Plan: On erythropoietin. Monitor. (4) COPD (chronic obstructive pulmonary disease) Qualifiers: Emphysema type: unspecified Plan: Stable currently. (5) ESRD (end stage renal disease) Is this a current diagnosis for this admission?: Yes Plan: Patient undergoing hemodialysis without any issues. Vital signs are stable. Is being supervised to ensure safe and smooth procedure. Plan to remove between 4- 5 L as tolerated. Patient to continue on hemodialysis only as an outpatient. (6) Venous insufficiency of both lower extremities Is this a current diagnosis for this admission?: Yes Plan: Markedly improved even though he has got skin changes still persisting which will be rather prominent.
[2018-04-17] MEDS: PANTOT AC/MIN OIL/PET HY-PHL OINT 50 GM TOP SCH ×2 (11:56→17:21)
[2018-04-17] MEDS: MIDODRINE HCL 5 MG TABLET PO SCH ×3 (11:57→17:20)
[2018-04-17] MEDS: DOCUSATE SODIUM 100 MG CAPSULE PO SCH ×2 (12:55→17:21)
[2018-04-17] MEDS: FOLIC ACID 1 MG TABLET PO SCH (12:55)
[2018-04-17] MEDS: ASPIRIN 81 MG TABLET, CHEWABLE PO SCH (12:55)
[2018-04-17] MEDS: MULTIVIT-STRESS FORMULA/ZINC TABLET PO SCH (12:55)
[2018-04-17] MEDS: POLYETHYLENE GLYCOL 3350 POWDER 17 GM/1 PACKET PO SCH (12:55)
[2018-04-17] MEDS: FERROUS SULFATE 325 MG TABLET PO SCH ×3 (12:56→17:21)
[2018-04-17] MEDS: METOPROLOL TARTRATE 25 MG TABLET PO SCH ×2 (12:56→21:15)
[2018-04-17] MEDS: NYSTATIN/DEXAMETH/DIPHEN SUSP 120 ML PO SCH ×4 (12:56→21:16)
[2018-04-17] MEDS: IPRATROPIUM/ALBUTEROL 0.5-2.5 MG/3 ML AMPUL NEB PRN (14:20)
[2018-04-17] MEDS ORDERED: TUBERCULIN,PURIF.PROT.DERIV. 5 TU/0.1 ML TEST 1 ML VIAL ID ONE (17:00)
--- NOTE | 2018-04-17 18:09 | PDOC PROGRESS REPORT ---
Subjective Progress Note for:: 04/17/18 Subjective:: No adverse events overnight. He says he thinks they took too much off of him with dialysis today, and he thinks his potassium is low because he is having some cramps. His predialysis potassium was 5.1. He was asleep in the chair when I came in, which is pretty much I find them almost every day. He reiterated his desire to do peritoneal dialysis at home, and while I told him again, as I have every other day of seen him, I do not think he will be able to do it, but I am going to let him take that up with his investment trader. 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: HEART FAILURE Physical Exam Vital Signs: Temp Pulse Resp BP Pulse Ox 98.6 F 92 18 114/63 98 04/17/18 16:11 04/17/18 16:11 04/17/18 16:11 04/17/18 16:11 04/17/18 16:11 Pulse Oximeter Continuous Start: 04/09/18 19:06 Freq: RTQ4 Status: Complete Protocol: Document 04/12/18 08:00 HCR (Rec: 04/12/18 12:16 HCR [email or web address]) Pulse Oximetry Assessment Equipment Usage Equipment Standby Continuous SpO2 Machine # 13 Additional RT Notes Other pt not in room Intake & Output 04/16/18 04/17/18 04/18/18 06:59 06:59 06:59 Intake Total 1345 852 0.5 Output Total 0 0 Balance 1345 852 0.5 Weight 66 kg 68.7 kg General appearance: PRESENT: no acute distress, cooperative, disheveled Respiratory exam: PRESENT: Clear to auscultation bilaterally, symmetrical, unl abored. ABSENT: accessory muscle use, prolonged expiratory phase, rhonchi, tachypnea, wheezes Cardiovascular exam: PRESENT: RRR, +S1, +S2 Vascular exam: PRESENT: normal capillary refill GI/Abdominal exam: PRESENT: distended - Mildly, normal bowel sounds, soft, other - He has trace lower abdominal wall pitting edema. ABSENT: guarding, rebound, tenderness Gentrourinary exam: PRESENT: Significantly improved scrotal swelling Extremities exam: PRESENT: Trace pedal edema, trace bilateral leg edema. ABSENT: clubbing Musculoskeletal exam: PRESENT: normal inspection. ABSENT: deformity Neurological exam: PRESENT: alert, awake, oriented to person, oriented to place, oriented to time Psychiatric exam: PRESENT: appropriate affect, normal mood Skin exam: PRESENT: dry, warm, evidence of long-standing chronic venous insufficiency in the lower extremities Results Laboratory Results: 04/17/18 06:53 04/17/18 06:53 04/17/18 04/17/18 06:53 06:53 WBC 7.4 RBC 3.14 L Hgb 9.5 L Hct 31.2 L MCV 99 H MCH 30.1 MCHC 30.4 L RDW 21.2 H Plt Count 120 L Sodium 139.9 Potassium 5.1 H Chloride 97 L Carbon Dioxide 25 Anion Gap 18 BUN 72 H Creatinine 7.36 H Est GFR ( Amer) 9 L Est GFR (Non-Af Amer) 7 L Glucose 137 H Calcium 8.0 L 04/09/18 04/09/18 04/10/18 15:35 15:35 00:20 Creatine Kinase 71 57 CK-MB (CK-2) 9.29 H Troponin I 0.074 04/10/18 04/10/18 04/10/18 00:20 06:54 06:54 Creatine Kinase 51 L CK-MB (CK-2) 6.53 H 6.02 H Troponin I 0.076 0.079 04/13/18 04/13/18 23:10 23:10 Creatine Kinase 46 L CK-MB (CK-2) 5.81 H Troponin I 0.080 Impressions: Chest X-Ray 04/09/18 15:51 IMPRESSION: Cardiomegaly with pulmonary vascular congestion and pleural effusions. Bibasilar atelectasis. Status post CABG. Assessment & Plan - Diagnosis (1) Acute on chronic diastolic congestive heart failure, NYHA class 4 Is this a current diagnosis for this admission?: Yes Plan: He does not make urine anymore so we cannot give him any Lasix. Continue hemodialysis for diuresis. Medical optimization. His symptoms are improving with dialysis. He is close to euvolemic, but in his note, Dr. Eric said that the patient would definitely have to do hemodialysis in order to keep his body fluid levels and check, because his peritoneal dialysis had proven insufficient. (2) ESRD (end stage renal disease) Is this a current diagnosis for this admission?: Yes Plan: Per Dr. Eric, he will need to continue hemodialysis. Dr. Eric thinks he should go back to a assisted facility, the but the patient does not want to go back to the one he was at before. We were looking at assisted living, but they felt like the patient was too high acuity for them. I am concerned about the risk of the patient's very brittle and tenuous health for him to go back home, because he does not live with his son, but rather beside him, and he was doing peritoneal dialysis, which has proven insufficient. Will get case management to look for other long-term placement options tomorrow, and we will revisit this issue with the patient tomorrow. - Time Time Spent with patient: 25-34 minutes
[2018-04-17] MEDS: TRAZODONE HCL 50 MG TABLET PO PRN (19:26)
[2018-04-17] MEDS: ZOLPIDEM TARTRATE 5 MG TABLET PO PRN (21:15)
[2018-04-17] MEDS: ATORVASTATIN CALCIUM 10 MG TABLET PO SCH (21:15)
[2018-04-17] MEDS: TIOTROPIUM BROMIDE DPI 5 CAP/KIT (18 MCG/CAP) IH SCH (21:16)
[2018-04-18] MEDS: OXYCODONE-ACETAMINOPHEN 5-325 MG TABLET PO PRN ×4 (03:55→23:27)
[2018-04-18] MEDS: CALCIUM ACETATE 667 MG CAPSULE PO SCH ×3 (05:48→16:51)
[2018-04-18] MEDS: LEVOTHYROXINE SODIUM 0.112 MG TABLET PO SCH (05:48)
[2018-04-18] MEDS: HEPARIN SOD (PORCINE) 5,000 UNIT/ML 1 ML SYRINGE SUBCUT SCH ×3 (07:54→22:16)
[2018-04-18] MEDS: FERROUS SULFATE 325 MG TABLET PO SCH ×3 (10:30→17:20)
[2018-04-18] MEDS: DOCUSATE SODIUM 100 MG CAPSULE PO SCH ×2 (10:30→17:20)
[2018-04-18] MEDS: FOLIC ACID 1 MG TABLET PO SCH (10:30)
[2018-04-18] MEDS: METOPROLOL TARTRATE 25 MG TABLET PO SCH ×2 (10:30→22:17)
[2018-04-18] MEDS: MIDODRINE HCL 5 MG TABLET PO SCH ×4 (10:32→17:19)
[2018-04-18] MEDS: POLYETHYLENE GLYCOL 3350 POWDER 17 GM/1 PACKET PO SCH (10:32)
[2018-04-18] MEDS: ASPIRIN 81 MG TABLET, CHEWABLE PO SCH (10:32)
[2018-04-18] MEDS: MULTIVIT-STRESS FORMULA/ZINC TABLET PO SCH (10:32)
[2018-04-18] MEDS: NYSTATIN/DEXAMETH/DIPHEN SUSP 120 ML PO SCH ×4 (10:33→22:17)
--- NOTE | 2018-04-18 11:01 | PDOC PROGRESS REPORT ---
Subjective Progress Note for:: 04/18/18 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: Patient is seen in the hospital today. He is laying in bed sleeping but easily arousable. He says he generally feeling well within the given circumstances.He says he has been getting up and is able to walk to the bathroom which I try to confirm with the nurse down. However she has not seen that happen.Patient is insisting that he be discharged home and that his son will take care of him and also transportation will be arranged with [facility] to [facility]. Labs and medications were reviewed with the patient. I expressed my strong concern whether the patient would be able to manage his ADLs at home and that he would be better off in a group home but he insists that if he is discharged he wants to go home Physical Exam Vital Signs: Temp Pulse Resp BP Pulse Ox 97.8 F 78 15 107/56 L 100 04/18/18 08:01 04/18/18 08:01 04/18/18 08:01 04/18/18 08:01 04/18/18 08:01 Pulse Oximeter Continuous Start: 04/09/18 19:06 Freq: RTQ4 Status: Complete Protocol: Document 04/12/18 08:00 HCR (Rec: 04/12/18 12:16 HCR [email or web address]) Pulse Oximetry Assessment Equipment Usage Equipment Standby Continuous SpO2 Machine # 13 Additional RT Notes Other pt not in room Intake & Output 04/17/18 04/18/18 04/19/18 06:59 06:59 06:59 Intake Total 852 1095.5 Output Total 0 4300 Balance 852 -3204.5 Weight 68.7 kg 68.7 kg General appearance: PRESENT: no acute distress Respiratory exam: PRESENT: clear to auscultation tata. ABSENT: crackles Cardiovascular exam: PRESENT: +S1, +S2, systolic murmur GI/Abdominal exam: PRESENT: normal bowel sounds, soft. ABSENT: organomegaly, tenderness Neurological exam: PRESENT: alert, awake, oriented to person, oriented to place Psychiatric exam: PRESENT: appropriate affect Results Laboratory Results: 04/17/18 06:53 04/17/18 06:53 04/09/18 04/09/18 04/10/18 15:35 15:35 00:20 Creatine Kinase 71 57 CK-MB (CK-2) 9.29 H Troponin I 0.074 02/11/19 02/11/19 02/11/19 00:20 06:54 06:54 Creatine Kinase 51 L CK-MB (CK-2) 6.53 H 6.02 H Troponin I 0.076 0.079 04/13/18 04/13/18 23:10 23:10 Creatine Kinase 46 L CK-MB (CK-2) 5.81 H Troponin I 0.080 Impressions: Chest X-Ray 04/09/18 15:51 IMPRESSION: Cardiomegaly with pulmonary vascular congestion and pleural effu sions. Bibasilar atelectasis. Status post CABG. Assessment & Plan - Diagnosis (1) Acute on chronic diastolic congestive heart failure, NYHA class 4 Is this a current diagnosis for this admission?: Yes Plan: Patient has responded markedly well to vigorous ultrafiltration on hemodialysis. He should continue on the same. Peritoneal dialysis is not an option for this gentleman and in the future for very obvious reasons. He is unable to do it properly along with his son who lives next door and ultrafiltration has become very very difficult on PD. I have categorically stated that patient will not be able to go back on PD in the future. He has responded very well clinically with the removal of large amounts of fluid. From cardiology and a renal perspective he is ready for discharge to group home and continuation of outpatient therapy on hemodialysis. (2) Hyperkalemia Is this a current diagnosis for this admission?: Yes Plan: Should respond to hemodialysis. Advised appropriate dietary restrictions. (3) Anemia in chronic kidney disease (CKD) Is this a current diagnosis for this admission?: Yes Plan: On erythropoietin. Monitor. (4) COPD (chronic obstructive pulmonary disease) Qualifiers: Emphysema type: unspecified Plan: Stable currently. (5) ESRD (end stage renal disease) Is this a current diagnosis for this admission?: Yes Plan: Plan for dialysis in the morning tomorrow. Orders are being placed. He should be ready for discharge anytime after his dialysis tomorrow. Discussed with Neha BRONSON, to have social workers on the case.As mentioned earlier I have strong concerns about he being able to do his own ADLs at home even though his son lives next door. I expressed the fact that he would have a lot of issues including falls which could set him backwards. Advised the best option would be a group home but he refuses. He says he would like to go home and see how he fares before any further plans are made. We will get social workers on the case. (6) Venous insufficiency of both lower extremities Is this a current diagnosis for this admission?: Yes Plan: Markedly improved even though he has got skin changes still persisting which will be rather prominent.
[2018-04-18] MEDS: LACTULOSE SYRUP 20 GM/30 ML UDCUP PO SCH (12:40)
[2018-04-18] MEDS: PANTOT AC/MIN OIL/PET HY-PHL OINT 50 GM TOP SCH ×2 (12:41→17:21)
[2018-04-18] MEDS: IPRATROPIUM/ALBUTEROL 0.5-2.5 MG/3 ML AMPUL NEB PRN (13:33)
[2018-04-18] MEDS: CALCIUM CARBONATE 500 MG TAB.CHEW PO PRN (15:46)
[2018-04-18] MEDS: GENTAMICIN SULFATE 0.1% CREAM 15 GM TP SCH (17:22)
[2018-04-18] MEDS: LORAZEPAM 0.5 MG TABLET PO PRN (17:27)
[2018-04-18] MEDS: ALBUTEROL SULFATE HFA (90 MCG/PUFF) 200 PUFF/8.5 GM MDI IH PRN (17:33)
[2018-04-18] MEDS ORDERED: OXYCODONE-ACETAMINOPHEN 5-325 MG TABLET ONE (17:39)
[2018-04-18] MEDS: FLUTICASONE/SALMETEROL DISKUS 250-50 MCG/DOSE IH SCH (22:15)
[2018-04-18] MEDS: MIRTAZAPINE 15 MG TABLET PO SCH (22:17)
[2018-04-18] MEDS: TRAZODONE HCL 50 MG TABLET PO PRN (22:17)
[2018-04-18] MEDS: ATORVASTATIN CALCIUM 10 MG TABLET PO SCH (22:18)
[2018-04-18] MEDS: ZOLPIDEM TARTRATE 5 MG TABLET PO PRN (22:18)
[2018-04-18] MEDS: TIOTROPIUM BROMIDE DPI 5 CAP/KIT (18 MCG/CAP) IH SCH (22:19)
[2018-04-19] MEDS: LORAZEPAM 0.5 MG TABLET PO PRN ×2 (04:48→19:31)
[2018-04-19] MEDS ORDERED: EPOETIN ALFA INJ 20000 UNIT/1 ML VIAL (RENAL) IV PRN (05:00)
[2018-04-19] MEDS: LEVOTHYROXINE SODIUM 0.112 MG TABLET PO SCH (05:44)
[2018-04-19] MEDS: HEPARIN SOD (PORCINE) 5,000 UNIT/ML 1 ML SYRINGE SUBCUT SCH ×3 (05:44→21:49)
[2018-04-19] MEDS: CALCIUM ACETATE 667 MG CAPSULE PO SCH ×3 (05:44→17:01)
[2018-04-19] MEDS: OXYCODONE-ACETAMINOPHEN 5-325 MG TABLET PO PRN ×3 (05:45→17:17)
[2018-04-19 05:48] LABS: HEMATOCRIT 32.9 % (37.9-51.0); HEMOGLOBIN 10.2 g/dL (13.5-17.0); MEAN CORPUSCULAR HEMOGLOBIN 30.3 pg (27.0-33.4); MEAN CORPUSCULAR HGB CONC 31.1 g/dL (32.0-36.0); MEAN CORPUSCULAR VOLUME 97 fl (80-97); PLATELET COUNT 114 10^3/uL (150-450); RED BLOOD COUNT 3.38 10^6/uL (4.35-5.55); RED CELL DISTRIBUTION WIDTH 20.4 % (11.5-14.0); WHITE BLOOD COUNT 6.8 10^3/uL (4.0-10.5)
[2018-04-19 06:11] LABS: ANION GAP 14 (5-19); BLOOD UREA NITROGEN 59 mg/dL (7-20); CALCIUM 8.3 mg/dL (8.4-10.2); CARBON DIOXIDE 26 mmol/L (22-30); CHLORIDE 98 mmol/L (98-107); GLUCOSE 97 mg/dL (75-110); POTASSIUM 5.9 mmol/L (3.6-5.0); SODIUM 137.8 mmol/L (137-145)
--- NOTE | 2018-04-19 06:45 | PDOC PROGRESS REPORT ---
Subjective Progress Note for:: 04/18/18 Subjective:: Despite removal of fluid patient reports fatigue and weakness especially after hemodialysis. 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: HEART FAILURE End-stage kidney disease with dialysis Physical Exam Vital Signs: Temp Pulse Resp BP Pulse Ox 97.9 F 89 16 136/74 H 100 04/18/18 17:19 04/18/18 17:19 04/18/18 17:19 04/18/18 17:19 04/18/18 17:19 Pulse Oximeter Continuous Start: 04/09/18 19:06 Freq: RTQ4 Status: Complete Protocol: Document 04/12/18 08:00 HCR (Rec: 04/12/18 12:16 HCR [email or web address]) Pulse Oximetry Assessment Equipment Usage Equipment Standby Continuous SpO2 Machine # 13 Additional RT Notes Other pt not in room Intake & Output 04/17/18 04/18/18 04/19/18 06:59 06:59 06:59 Intake Total 852 1095.5 858 Output Total 0 4300 Balance 852 -3204.5 858 Weight 68.7 kg 68.7 kg General appearance: PRESENT: no acute distress, cooperative, well-developed - Chronically ill-appearing 72-year-old patient Head exam: PRESENT: normocephalic Respiratory exam: PRESENT: rales, symmetrical. ABSENT: accessory muscle use, rhonchi, stridor, wheezes Cardiovascular exam: PRESENT: irregular rhythm, +S1, +S2 GI/Abdominal exam: PRESENT: distended, normal bowel sounds, soft. ABSENT: tenderness Extremities exam: PRESENT: pedal edema Skin exam: ABSENT: normal color - Discoloration consistent with chronic venous insufficiency. Results Laboratory Results: 04/17/18 06:53 04/17/18 06:53 04/09/18 04/09/18 04/10/18 15:35 15:35 00:20 Creatine Kinase 71 57 CK-MB (CK-2) 9.29 H Troponin I 0.074 04/10/18 04/10/18 04/10/18 00:20 06:54 06:54 Creatine Kinase 51 L CK-MB (CK-2) 6.53 H 6.02 H Troponin I 0.076 0.079 04/13/18 04/13/18 23:10 23:10 Creatine Kinase 46 L CK-MB (CK-2) 5.81 H Troponin I 0.080 Impressions: Chest X-Ray 04/09/18 15:51 IMPRESSION: Cardiomegaly with pulmonary vascular congestion and pleural effusions. Bibasilar atelectasis. Status post CABG. Assessment & Plan - Diagnosis (1) End-stage renal disease (ESRD) Is this a current diagnosis for this admission?: Yes Plan: The patient wishes to return home with his son and resume peritoneal dialysis. He has been on hemodialysis at this facility. He did visit with palliative care. He had questions about end-of-life care including comfort measures. He also questioned what happens if he decides not to continue dialysis. (2) Acute on chronic diastolic congestive heart failure, NYHA class 4 Is this a current diagnosis for this admission?: Yes Plan: The patient is an uric. Continue fluid management with dialysis. Still somewhat tachypneic. (3) Coronary artery disease Qualifiers: Coronary Disease-Associated Artery/Lesion type: [place] artery [place] vs. transplanted heart: [place] heart Associated angina: without angina Qualified Code(s): I25.10 - Atherosclerotic heart disease of [place] coronary artery without angina pectoris Is this a current diagnosis for this admission?: Yes Plan: Continue current medical regimen. (4) Hypothyroid Qualifiers: Hypothyroidism type: unspecified Qualified Code(s): E03.9 - Hypothyroidism, unspecified Is this a current diagnosis for this admission?: Yes Plan: Continue levothyroxine (5) Hypoxemia Is this a current diagnosis for this admission?: Yes Plan: Continue oxygen supplementation (6) Fluid overload Qualifiers: Hypervolemia type: other Qualified Code(s): E87.79 - Other fluid overload Is this a current diagnosis for this admission?: Yes Plan: Fluid management with dialysis. Despite dialysis patient still continues to retain fluid. (7) Hyperkalemia Is this a current diagnosis for this admission?: Yes Plan: Consistent with his end-stage kidney disease (8) Acute kidney injury superimposed on chronic kidney disease Is this a current diagnosis for this admission?: Yes Plan: Acute portion resolved. - Time Time Spent with patient: 15-24 minutes Medications reviewed and adjusted accordingly: Yes Anticipated discharge: Home - Patient desires to go home with his son and resume peritoneal dialysis. He reports that his son is on board with this plan.
[2018-04-19] MEDS: MIDODRINE HCL 5 MG TABLET PO SCH ×3 (09:31→17:07)
[2018-04-19] MEDS: ASPIRIN 81 MG TABLET, CHEWABLE PO SCH (09:36)
[2018-04-19] MEDS: DOCUSATE SODIUM 100 MG CAPSULE PO SCH ×2 (09:36→17:02)
[2018-04-19] MEDS: LACTULOSE SYRUP 20 GM/30 ML UDCUP PO SCH (09:36)
[2018-04-19] MEDS: METOPROLOL TARTRATE 25 MG TABLET PO SCH (09:36)
[2018-04-19] MEDS: FERROUS SULFATE 325 MG TABLET PO SCH ×3 (09:36→17:03)
[2018-04-19] MEDS: FLUTICASONE/SALMETEROL DISKUS 250-50 MCG/DOSE IH SCH ×2 (09:36→21:49)
[2018-04-19] MEDS: FOLIC ACID 1 MG TABLET PO SCH (09:36)
[2018-04-19] MEDS: MULTIVIT-STRESS FORMULA/ZINC TABLET PO SCH (09:36)
[2018-04-19] MEDS: PANTOT AC/MIN OIL/PET HY-PHL OINT 50 GM TOP SCH ×2 (09:37→17:02)
[2018-04-19] MEDS: GENTAMICIN SULFATE 0.1% CREAM 15 GM TP SCH (09:37)
[2018-04-19] MEDS: NYSTATIN/DEXAMETH/DIPHEN SUSP 120 ML PO SCH ×4 (09:38→21:50)
[2018-04-19] MEDS: POLYETHYLENE GLYCOL 3350 POWDER 17 GM/1 PACKET PO SCH (09:38)
[2018-04-19] MEDS ORDERED: GENTAMICIN SULFATE 0.1% CREAM 15 GM TP SCH (12:00)
[2018-04-19] MEDS ORDERED: EPOETIN ALFA 10,000 UNIT in SYRINGE, DISPOSABLE, 1 EACH IV ONE (16:00)
--- NOTE | 2018-04-19 16:58 | PDOC PROGRESS REPORT ---
Subjective Progress Note for:: 04/19/18 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: Patient was seen earlier this morning as he refused to go on dialysis. He was complaining of low back pain and feeling weak. He has been progressively declining over the last few months. He has had talk about hospice at his last visit but had declined even though initially he wanted to. Labs and medications were reviewed with the patient. He was subsequently seen this afternoon on dialysis. He is undergoing dialysis though he is in some amount of discomfort. Apparently he has come to terms with his condition and status and has requested hospice. He thinks he might consider stopping all sorts of dialysis in the next few days. Physical Exam Vital Signs: Temp Pulse Resp BP Pulse Ox 97.2 F 86 18 135/83 H 98 04/19/18 11:06 04/19/18 14:46 04/19/18 14:46 04/19/18 11:06 04/19/18 14:46 Pulse Oximeter Continuous Start: 04/09/18 19: 06 Freq: RTQ4 Status: Complete Protocol: Document 04/12/18 08:00 HCR (Rec: 04/12/18 12:16 HCR [email or web address]) Pulse Oximetry Assessment Equipment Usage Equipment Standby Continuous SpO2 Machine # 13 Additional RT Notes Other pt not in room Intake & Output 04/18/18 04/19/18 04/20/18 06:59 06:59 06:59 Intake Total 1095.5 1332 Output Total 4300 0 Balance -3204.5 1332 Weight 68.7 kg 66.3 kg General appearance: PRESENT: mild distress Respiratory exam: PRESENT: clear to auscultation tata, crackles, decreased breath sounds Cardiovascular exam: PRESENT: +S1, +S2, systolic murmur GI/Abdominal exam: PRESENT: normal bowel sounds, soft. ABSENT: organomegaly, tenderness Extremities exam: ABSENT: pedal edema Neurological exam: PRESENT: alert, awake, oriented to person, oriented to place, oriented to time Results Laboratory Results: 04/19/18 04:37 04/19/18 04:37 04/19/18 04/19/18 04:37 04:37 WBC 6.8 RBC 3.38 L Hgb 10.2 L Hct 32.9 L MCV 97 MCH 30.3 MCHC 31.1 L RDW 20.4 H Plt Count 114 L Sodium 137.8 Potassium 5.9 H Chloride 98 Carbon Dioxide 26 Anion Gap 14 BUN 59 H Creatinine 6.15 H Est GFR ( Amer) 11 L Est GFR (Non-Af Amer) 9 L Glucose 97 Calcium 8.3 L 04/09/18 04/09/18 04/10/18 15:35 15:35 00:20 Creatine Kinase 71 57 CK-MB (CK-2) 9.29 H Troponin I 0.074 04/10/18 04/10/18 04/10/18 00:20 06:54 06:54 Creatine Kinase 51 L CK-MB (CK-2) 6.53 H 6.02 H Troponin I 0.076 0.079 04/13/18 04/13/18 23:10 23:10 Creatine Kinase 46 L CK-MB (CK-2) 5.81 H Troponin I 0.080 Impressions: Chest X-Ray 04/09/18 15:51 IMPRESSION: Cardiomegaly with pulmonary vascular congestion and pleural effusions. Bibasilar atelectasis. Status post CABG. Assessment & Plan - Diagnosis (1) Acute on chronic diastolic congestive heart failure, NYHA class 4 Is this a current diagnosis for this admission?: Yes Plan: Patient has responded markedly well to vigorous ultrafiltration on hemodialysis. He should continue on the same. He has responded very well clinically with the removal of fluid. From cardiology and a renal perspective he is ready for discharge to halfway and continuation of outpatient therapy on hemo dialysis.As of today he has now finally consented to talk with hospice. Further plans will be outlined after he talks with them as well as with his son. (2) Hyperkalemia Is this a current diagnosis for this admission?: Yes Plan: Should respond to hemodialysis. Advised appropriate dietary restrictions. (3) Anemia in chronic kidney disease (CKD) Is this a current diagnosis for this admission?: Yes Plan: On erythropoietin. Monitor. (4) COPD (chronic obstructive pulmonary disease) Qualifiers: Emphysema type: unspecified Plan: Stable currently. (5) ESRD (end stage renal disease) Is this a current diagnosis for this admission?: Yes Plan: Patient is currently undergoing dialysis though he is in some amount of discomf ort. We discussed options of hospice and completely stopping treatments. Currently otherwise dialysis will go as supervised. Plan to remove 1-2 L as tolerated. Dialysis orders were reviewed with the treating dialysis nurse. (6) Venous insufficiency of both lower extremities Is this a current diagnosis for this admission?: Yes Plan: Markedly improved even though he has got skin changes still persisting which will be rather prominent. (7) Weakness Plan: Patient has been declining rather rapidly over the last few months. He is very debilitated and unable to do his own ADLs. He has finally come to the realization of the finite nature of life. He has finally consented to talk with hospice and we will decide further plans after he has done the talks with them as well as with his son.Appreciate Dr. Mayorga's input into this as well.
[2018-04-19] MEDS: IPRATROPIUM/ALBUTEROL 0.5-2.5 MG/3 ML AMPUL NEB PRN (17:48)
--- NOTE | 2018-04-19 19:16 | Progress Note ---
Provider Note Provider Note: Advance care planning note Present where the patient and myself. I did speak with the patient's son later in the day. Hospice consult was obtained today. I spoke at length with the patient both before the hospice consult and after (total of 25 minutes) regarding treatment choices. He wants to try peritoneal dialysis at home 1 more time. We went over in detail the options of returning to hemodialysis, attempting peritoneal dialysis at home with likely failure as well as stopping dialysis altogether. We went through the specifics of comfort measures only for end-of-life care. At this point the patient still wishes to return home with peritoneal dialysis. No new supplies will be issued from [facility] as this is not a condone therapy by nephrology. Hospice will revisit the patient tomorrow. With all of this discussion having taken place I will see if the patient is at least amenable to changing his CODE STATUS to DNR.
--- NOTE | 2018-04-19 19:23 | PDOC PROGRESS REPORT ---
Subjective Progress Note for:: 04/19/18 Subjective:: Still feeling poorly. Requested Hospice consult. Still tachypneic even with hemodialysis. 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: End-stage kidney disease Volume overload Atrial fibrillation Physical Exam Vital Signs: Temp Pulse Resp BP Pulse Ox 97.9 F 90 14 129/68 H 100 04/19/18 08:00 04/19/18 08:00 04/19/18 08:00 04/19/18 08:00 04/19/18 08:00 Pulse Oximeter Continuous Start: 04/09/18 19:06 Freq: RTQ4 Status: Complete Protocol: Document 04/12/18 08:00 HCR (Rec: 04/12/18 12:16 HCR [email or web address]) Pulse Oximetry Assessment Equipment Usage Equipment Standby Continuous SpO2 Machine # 13 Additional RT Notes Other pt not in room Intake & Output 04/18/18 04/19/18 04/20/18 06:59 06:59 06:59 Intake Total 1095.5 1332 Output Total 4300 0 Balance -3204.5 1332 Weight 68.7 kg 66.3 kg General appearance: PRESENT: cooperative, mild distress, thin, well-developed - Very frail appearing 72-year-old patient who looks older than his stated age Respiratory exam: PRESENT: rales, symmetrical, tachypnea. ABSENT: rhonchi, wheezes Cardiovascular exam: PRESENT: irregular rhythm, +S1, +S2 GI/Abdominal exam: PRESENT: distended, normal bowel sounds, soft. ABSENT: tenderness Extremities exam: PRESENT: +1 edema, other - Discoloration consistent with venous insufficiency Neurological exam: PRESENT: alert, awake, oriented to person, oriented to place, oriented to situation Psychiatric exam: PRESENT: flat affect. ABSENT: agitated, anxious Results Laboratory Results: 04/19/18 04:37 04/19/18 04:37 04/19/18 04/19/18 04:37 04:37 WBC 6.8 RBC 3.38 L Hgb 10.2 L Hct 32.9 L MCV 97 MCH 30.3 MCHC 31.1 L RDW 20.4 H Plt Count 114 L Sodium 137.8 Potassium 5.9 H Chloride 98 Carbon Dioxide 26 Anion Gap 14 BUN 59 H Creatinine 6.15 H Est GFR ( Amer) 11 L Est GFR (Non-Af Amer) 9 L Glucose 97 Calcium 8.3 L 04/09/18 04/09/18 04/10/18 15:35 15:35 00:20 Creatine Kinase 71 57 CK-MB (CK-2) 9.29 H Troponin I 0.074 04/10/18 04/10/18 04/10/18 00:20 06:54 06:54 Creatine Kinase 51 L CK-MB (CK-2) 6.53 H 6.02 H Troponin I 0.076 0.079 04/13/18 04/13/18 23:10 23:10 Creatine Kinase 46 L CK-MB (CK-2) 5.81 H Troponin I 0.080 Impressions: Chest X-Ray 04/09/18 15:51 IMPRESSION: Cardiomegaly with pulmonary vascular congestion and pleural effusions. Bibasilar atelectasis. Status post CABG. Assessment & Plan - Diagnosis (1) End-stage renal disease (ESRD) Is this a current diagnosis for this admission?: Yes Plan: I had another long discussion with the patient. Nephrology recommends ongoing hemodialysis. They do understand that the patient wants to try and go home with peritoneal dialysis. The patient is aware that he will no longer receive peritoneal dialysis supplies although he states he has enough for at least a month. Again I told him that I do not think he will do well with the peritoneal dialysis but he insists on trying. His son supports an attempt at home as well. Hospice has seen the patient. (2) Acute on chronic diastolic congestive heart failure, NYHA class 4 Is this a current diagnosis for this admission?: Yes Plan: Heart failure is exacerbated by his kidney disease. His blood pressure varies. It typically is low during dialysis. I will switch him back to a long-acting form of metoprolol. I have explained to the patient as described above the fact that his chronic illnesses are progressing despite aggressive treatments. The patient is tachypneic consistently now. (3) Coronary artery disease Qualifiers: Coronary Disease-Associated Artery/Lesion type: [place] artery [place] vs. transplanted heart: solomon heart Associated angina: without angina Qualified Code(s): I25.10 - Atherosclerotic heart disease of solomon coronary artery without angina pectoris Is this a current diagnosis for this admission?: Yes Plan: Continue current medical regimen. Metoprolol adjusted as above. (4) Hypothyroid Qualifiers: Hypothyroidism type: unspecified Qualified Code(s): E03.9 - Hypothyroidism, unspecified Is this a current diagnosis for this admission?: Yes Plan: Continue levothyroxine (5) Hypoxemia Is this a current diagnosis for this admission?: Yes Plan: Continue oxygen supplementation. (6) Fluid overload Qualifiers: Hypervolemia type: other Qualified Code(s): E87.79 - Other fluid overload Is this a current diagnosis for this admission?: Yes Plan: Fluid management with dialysis. Despite dialysis patient still continues to retain fluid. (7) Hyperkalemia Is this a current diagnosis for this admission?: Yes Plan: Consistent with his end-stage kidney disease. Monitor potassium levels with dialysis. (8) Acute kidney injury superimposed on chronic kidney disease Is this a current diagnosis for this admission?: Yes Plan: Acute portion resolved. - Time Time Spent with patient: 25-34 minutes Medications reviewed and adjusted accordingly: Yes Anticipated discharge: Home Within: within 48 hours
[2018-04-19] MEDS: MIRTAZAPINE 15 MG TABLET PO SCH (21:50)
[2018-04-19] MEDS: ZOLPIDEM TARTRATE 5 MG TABLET PO PRN (21:50)
[2018-04-19] MEDS: TRAZODONE HCL 50 MG TABLET PO PRN (21:50)
[2018-04-19] MEDS: TIOTROPIUM BROMIDE DPI 5 CAP/KIT (18 MCG/CAP) IH SCH (21:50)
[2018-04-19] MEDS: ATORVASTATIN CALCIUM 10 MG TABLET PO SCH (21:50)
[2018-04-20] MEDS: OXYCODONE-ACETAMINOPHEN 5-325 MG TABLET PO PRN ×4 (02:52→18:41)
[2018-04-20 05:11] LABS: ANION GAP 16 (5-19); CARBON DIOXIDE 25 mmol/L (22-30); CHLORIDE 96 mmol/L (98-107); GLUCOSE 147 mg/dL (75-110); SODIUM 136.6 mmol/L (137-145)
[2018-04-20 05:48] LABS: BLOOD UREA NITROGEN 39 mg/dL (7-20); POTASSIUM 4.4 mmol/L (3.6-5.0)
[2018-04-20 05:49] LABS: CALCIUM 7.4 mg/dL (8.4-10.2)
[2018-04-20] MEDS: HEPARIN SOD (PORCINE) 5,000 UNIT/ML 1 ML SYRINGE SUBCUT SCH ×3 (06:56→22:19)
[2018-04-20] MEDS: CALCIUM ACETATE 667 MG CAPSULE PO SCH ×3 (06:56→17:50)
[2018-04-20] MEDS: LEVOTHYROXINE SODIUM 0.112 MG TABLET PO SCH (06:56)
[2018-04-20] MEDS: FOLIC ACID 1 MG TABLET PO SCH (11:08)
[2018-04-20] MEDS: GENTAMICIN SULFATE 0.1% CREAM 15 GM TP SCH (11:08)
[2018-04-20] MEDS: ASPIRIN 81 MG TABLET, CHEWABLE PO SCH (11:08)
[2018-04-20] MEDS: DOCUSATE SODIUM 100 MG CAPSULE PO SCH ×2 (11:09→17:50)
[2018-04-20] MEDS: MIDODRINE HCL 5 MG TABLET PO SCH ×3 (11:09→17:48)
[2018-04-20] MEDS: METOPROLOL SUCCINATE 50 MG TAB.SR.24H PO SCH (11:09)
[2018-04-20] MEDS: MULTIVIT-STRESS FORMULA/ZINC TABLET PO SCH (11:10)
[2018-04-20] MEDS: FLUTICASONE/SALMETEROL DISKUS 250-50 MCG/DOSE IH SCH ×2 (11:10→22:14)
[2018-04-20] MEDS: LACTULOSE SYRUP 20 GM/30 ML UDCUP PO SCH (11:10)
[2018-04-20] MEDS: NYSTATIN/DEXAMETH/DIPHEN SUSP 120 ML PO SCH ×4 (11:10→22:17)
[2018-04-20] MEDS: FERROUS SULFATE 325 MG TABLET PO SCH ×3 (11:10→17:50)
[2018-04-20] MEDS: POLYETHYLENE GLYCOL 3350 POWDER 17 GM/1 PACKET PO SCH (11:10)
[2018-04-20] MEDS: PANTOT AC/MIN OIL/PET HY-PHL OINT 50 GM TOP SCH ×2 (11:11→17:51)
--- NOTE | 2018-04-20 11:37 | PDOC PROGRESS REPORT ---
Subjective Progress Note for:: 04/20/18 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: Patient seen this morning. He is continuing to get progressively weak and feeble. He continues to have some amount of low back pain. No complaints of any chest pain shortness of breath fever or chills. Labs and medications reviewed. He is still not sure about stoppage of dialysis modalities and he says he wants to speak with his son. However I see that he has already spoken with Dr. Mayorga and the son yesterday.As things stand a lot arrange for hemodia lysis in the morning here.I did not touch the topic of peritoneal dialysis at home as I have spoken with him at length about the inability of him and his son to do this properly and it is fraught with a lot of complications. As things stand now, I will not be able to arrange any more peritoneal dialysis for him as an outpatient. Physical Exam Vital Signs: Temp Pulse Resp BP Pulse Ox 97.5 F 119 H 18 113/71 93 04/20/18 07:21 04/20/18 07:21 04/20/18 07:21 04/20/18 07:21 04/20/18 07:21 Pulse Oximeter Continuous Start: 04/09/18 19:06 Freq: RTQ4 Status: Complete Protocol: Document 04/12/18 08:00 HCR (Rec: 04/12/18 12:16 HCR [email or web address]) Pulse Oximetry Assessment Equipment Usage Equipment Standby Continuous SpO2 Machine # 13 Additional RT Notes Other pt not in room Intake & Output 04/19/18 04/20/18 04/21/18 06:59 06:59 06:59 Intake Total 1332 1471.5 Output Total 0 1800 Balance 1332 -328.5 Weight 66.3 kg 67.9 kg General appearance: PRESENT: no acute distress Respiratory exam: PRESENT: clear to auscultation tata. ABSENT: crackles Cardiovascular exam: PRESENT: +S1, +S2, systolic murmur GI/Abdominal exam: PRESENT: normal bowel sounds, soft. ABSENT: organomegaly, tenderness Results Laboratory Results: 04/19/18 04:37 04/20/18 04:25 04/20/18 04:25 Sodium 136.6 L Potassium 4.4 D Chloride 96 L Carbon Dioxide 25 Anion Gap 16 BUN 39 H D Creatinine 3.82 H Est GFR ( Amer) 19 L Est GFR (Non-Af Amer) 16 L Glucose 147 H Calcium 7.4 L 04/09/18 04/09/18 04/10/18 15:35 15:35 00:20 Creatine Kinase 71 57 CK-MB (CK-2) 9.29 H Troponin I 0.074 04/10/18 04/10/18 04/10/18 00:20 06:54 06:54 Creatine Kinase 51 L CK-MB (CK-2) 6.53 H 6.02 H Troponin I 0.076 0.079 04/13/18 04/13/18 23:10 23:10 Creatine Kinase 46 L CK-MB (CK-2) 5.81 H Troponin I 0.080 Impressions: Chest X-Ray 04/09/18 15:51 IMPRESSION: Cardiomegaly with pulmonary vascular congestion and pleural effusions. Bibasilar atelectasis. Status post CABG. Assessment & Plan - Diagnosis (1) Acute on chronic diastolic congestive heart failure, NYHA class 4 Is this a current diagnosis for this admission?: Yes Plan: Patient has responded markedly well to vigorous ultrafiltration on hemodialysis. He should continue on the same. He has responded very well clinically with the removal of fluid. From cardiology and a renal perspective he is ready for discharge to half-way and continuation of outpatient therapy on hemodialysis. (2) Hyperkalemia Is this a current diagnosis for this admission?: Yes Plan: Advised appropriate dietary restrictions. (3) Anemia in chronic kidney disease (CKD) Is this a current diagnosis for this admission?: Yes Plan: On erythropoietin. Monitor. (4) COPD (chronic obstructive pulmonary disease) Qualifiers: Emphysema type: unspecified Plan: Stable currently. (5) ESRD (end stage renal disease) Is this a current diagnosis for this admission?: Yes Plan: Orders for hemodialysis in the morning has been placed. (6) Venous insufficiency of both lower extremities Is this a current diagnosis for this admission?: Yes Plan: Markedly improved even though he has got skin changes still persisting which will be rather prominent. (7) Weakness Plan: Patient has been declining rather rapidly over the last few months. He is very debilitated and unable to do his own ADLs. He has finally come to the realization of the finite nature of life. He is still unsure about hospice and stoppage of dialysis at the moment.Looks like he has changed his mind from yesterday as I had seen him speak with the hospice nurse yesterday while he was undergoing dialysis.
[2018-04-20] MEDS: LORAZEPAM 0.5 MG TABLET PO PRN (18:45)
[2018-04-20] MEDS: ATORVASTATIN CALCIUM 10 MG TABLET PO SCH (22:14)
[2018-04-20] MEDS: MIRTAZAPINE 15 MG TABLET PO SCH (22:14)
[2018-04-20] MEDS: TRAZODONE HCL 50 MG TABLET PO PRN (22:14)
[2018-04-20] MEDS: TIOTROPIUM BROMIDE DPI 5 CAP/KIT (18 MCG/CAP) IH SCH (22:19)
[2018-04-20] MEDS: ZOLPIDEM TARTRATE 5 MG TABLET PO PRN (22:21)
[2018-04-21] MEDS: OXYCODONE-ACETAMINOPHEN 5-325 MG TABLET PO PRN ×3 (04:17→19:40)
[2018-04-21] MEDS: LORAZEPAM 0.5 MG TABLET PO PRN ×2 (04:18→12:20)
[2018-04-21 05:02] LABS: HEMATOCRIT 30.8 % (37.9-51.0); HEMOGLOBIN 9.6 g/dL (13.5-17.0); MEAN CORPUSCULAR HEMOGLOBIN 30.5 pg (27.0-33.4); MEAN CORPUSCULAR HGB CONC 31.4 g/dL (32.0-36.0); MEAN CORPUSCULAR VOLUME 97 fl (80-97); PLATELET COUNT 122 10^3/uL (150-450); RED BLOOD COUNT 3.16 10^6/uL (4.35-5.55); RED CELL DISTRIBUTION WIDTH 20.2 % (11.5-14.0); WHITE BLOOD COUNT 6.5 10^3/uL (4.0-10.5)
[2018-04-21 05:29] LABS: ANION GAP 16 (5-19); BLOOD UREA NITROGEN 50 mg/dL (7-20); CALCIUM 7.8 mg/dL (8.4-10.2); CARBON DIOXIDE 26 mmol/L (22-30); CHLORIDE 95 mmol/L (98-107); GLUCOSE 128 mg/dL (75-110); SODIUM 136.6 mmol/L (137-145)
[2018-04-21] MEDS: HEPARIN SOD (PORCINE) 5,000 UNIT/ML 1 ML SYRINGE SUBCUT SCH ×3 (06:01→21:29)
[2018-04-21] MEDS: CALCIUM ACETATE 667 MG CAPSULE PO SCH ×3 (06:03→17:12)
[2018-04-21] MEDS: LEVOTHYROXINE SODIUM 0.112 MG TABLET PO SCH (06:03)
[2018-04-21] MEDS ORDERED: EPOETIN ALFA 10,000 UNIT in SYRINGE, DISPOSABLE, 1 EACH IV PRN (11:00)
--- NOTE | 2018-04-21 11:38 | PDOC PROGRESS REPORT ---
Subjective Progress Note for:: 04/21/18 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: Patient seen today in the hospital undergoing dialysis. He is undergoing dialysis without any issues. Vital signs are stable. He feels he is again getting weaker. He has got some amount of low back pain. He denies any such chest pain or shortness of breath. Labs and medications were reviewed. Dialysis orders were reviewed with the treating dialysis nurse. Physical Exam Vital Signs: Temp Pulse Resp BP Pulse Ox 98.2 F 87 18 124/66 100 04/21/18 08:00 04/21/18 08:00 04/21/18 08:00 04/21/18 08:00 04/21/18 08:00 Pulse Oximeter Continuous Start: 04/09/18 19:06 Freq: RTQ4 Status: Complete Protocol: Document 04/12/18 08:00 HCR (Rec: 04/12/18 12:16 HCR [email or web address]) Pulse Oximetry Assessment Equipment Usage Equipment Standby Continuous SpO2 Machine # 13 Additional RT Notes Other pt not in room Intake & Output 04/20/18 04/21/18 04/22/18 06:59 06:59 06:59 Intake Total 1471.5 1054 0.5 Output Total 1800 Balance -328.5 1054 0.5 Weight 67.9 kg 66 kg General appearance: PRESENT: no acute distress Respiratory exam: PRESENT: clear to auscultation tata. ABSENT: crackles Cardiovascular exam: PRESENT: +S1, +S2, systolic murmur GI/Abdominal exam: PRESENT: normal bowel sounds, soft. ABSENT: organomegaly, tenderness Extremities exam: PRESENT: pedal edema Neurological exam: PRESENT: alert, awake, oriented to person, oriented to place, oriented to time Results Laboratory Results: 04/21/18 04:50 04/21/18 04:50 04/21/18 04/21/18 04:50 04:50 WBC 6.5 RBC 3.16 L Hgb 9.6 L Hct 30.8 L MCV 97 MCH 30.5 MCHC 31.4 L RDW 20.2 H Plt Count 122 L Sodium 136.6 L Potassium 5.0 Chloride 95 L Carbon Dioxide 26 Anion Gap 16 BUN 50 H Creatinine 5.23 H Est GFR ( Amer) 13 L Est GFR (Non-Af Amer) 11 L Glucose 128 H Calcium 7.8 L 0204/09/18 04/10/18 15:35 15:35 00:20 Creatine Kinase 71 57 CK-MB (CK-2) 9.29 H Troponin I 0.074 04/10/18 04/10/18 04/10/18 00:20 06:54 06:54 Creatine Kinase 51 L CK-MB (CK-2) 6.53 H 6.02 H Troponin I 0.076 0.079 04/13/18 04/13/18 23:10 23:10 Creatine Kinase 46 L CK-MB (CK-2) 5.81 H Troponin I 0.080 Impressions: Chest X-Ray 04/09/18 15:51 IMPRESSION: Cardiomegaly with pulmonary vascular congestion and pleural effusions. Bibasilar atelectasis. Status post CABG. Assessment & Plan - Diagnosis (1) ESRD (end stage renal disease) Is this a current diagnosis for this admission?: Yes Plan: Patient was seen undergoing dialysis. It is being supervised to ensure safe and smooth procedure. Vital signs are stable. Plan to remove approximately 1-2 L as tolerated. Patient ready to be discharged from renal point of view and can continue as outpatient on hemodialysis. (2) Acute on chronic diastolic congestive heart failure, NYHA class 4 Is this a current diagnosis for this admission?: Yes Plan: Patient has responded markedly well to vigorous ultrafiltration on hemodialysis. He should continue on the same. He has responded very well clinically with the removal of fluid. From cardiology and a renal perspective he is ready for discharge to skilled nursing and continuation of outpatient therapy on hemodialysis. (3) Hyperkalemia Is this a current diagnosis for this admission?: Yes Plan: Advised appropriate dietary restrictions. (4) Anemia in chronic kidney disease (CKD) Is this a current diagnosis for this admission?: Yes Plan: On erythropoietin. Monitor. (5) COPD (chronic obstructive pulmonary disease) Qualifiers: Emphysema type: unspecified Plan: Stable currently. (6) Venous insufficiency of both lower extremities Is this a current diagnosis for this admission?: Yes Plan: Markedly improved even though he has got skin changes still persisting which is permanent. (7) Weakness Plan: Patient has been declining rather rapidly over the last few months. He is very debilitated and unable to do his own ADLs. He has finally come to the realization of the finite nature of life. He is still unsure about hospice and stoppage of dialysis at the moment.
[2018-04-21] MEDS: FLUTICASONE/SALMETEROL DISKUS 250-50 MCG/DOSE IH SCH ×2 (12:14→21:23)
[2018-04-21] MEDS: PANTOT AC/MIN OIL/PET HY-PHL OINT 50 GM TOP SCH ×2 (12:14→17:14)
[2018-04-21] MEDS: LACTULOSE SYRUP 20 GM/30 ML UDCUP PO SCH (12:15)
[2018-04-21] MEDS: FOLIC ACID 1 MG TABLET PO SCH (12:15)
[2018-04-21] MEDS: ASPIRIN 81 MG TABLET, CHEWABLE PO SCH (12:15)
[2018-04-21] MEDS: GENTAMICIN SULFATE 0.1% CREAM 15 GM TP SCH (12:15)
[2018-04-21] MEDS: FERROUS SULFATE 325 MG TABLET PO SCH ×3 (12:15→17:13)
[2018-04-21] MEDS: DOCUSATE SODIUM 100 MG CAPSULE PO SCH ×2 (12:15→17:13)
[2018-04-21] MEDS: POLYETHYLENE GLYCOL 3350 POWDER 17 GM/1 PACKET PO SCH (12:17)
[2018-04-21] MEDS: MIDODRINE HCL 5 MG TABLET PO SCH ×3 (12:17→17:13)
[2018-04-21] MEDS: NYSTATIN/DEXAMETH/DIPHEN SUSP 120 ML PO SCH ×4 (12:17→21:23)
[2018-04-21] MEDS: MULTIVIT-STRESS FORMULA/ZINC TABLET PO SCH (12:18)
[2018-04-21] MEDS: METOPROLOL SUCCINATE 50 MG TAB.SR.24H PO SCH (12:18)
[2018-04-21] MEDS: IPRATROPIUM/ALBUTEROL 0.5-2.5 MG/3 ML AMPUL NEB PRN (13:49)
[2018-04-21] MEDS: MORPHINE SULFATE 10 MG/ML INJ IV PRN (18:47)
[2018-04-21] MEDS: MIRTAZAPINE 15 MG TABLET PO SCH (21:23)
[2018-04-21] MEDS: ATORVASTATIN CALCIUM 10 MG TABLET PO SCH (21:23)
[2018-04-21] MEDS: ZOLPIDEM TARTRATE 5 MG TABLET PO PRN (21:27)
[2018-04-21] MEDS: TRAZODONE HCL 50 MG TABLET PO PRN (21:27)
[2018-04-21] MEDS: TIOTROPIUM BROMIDE DPI 5 CAP/KIT (18 MCG/CAP) IH SCH (21:31)
--- NOTE | 2018-04-21 21:43 | PDOC PROGRESS REPORT ---
Subjective Progress Note for:: 04/21/18 Subjective:: Patient complains of lower back pain. He tolerated 2-1/2 hours of dialysis and they removed 3 L of fluid 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: HEART FAILURE Physical Exam Vital Signs: Temp Pulse Resp BP Pulse Ox 97.4 F 89 18 133/68 H 95 04/21/18 12:06 04/21/18 13:49 04/21/18 13:49 04/21/18 12:06 04/21/18 13:49 Pulse Oximeter Continuous Start: 04/09/18 19:06 Freq: RTQ4 Status: Complete Protocol: Document 04/12/18 08:00 HCR (Rec: 04/12/18 12:16 HCR [email or web address]) Pulse Oximetry Assessment Equipment Usage Equipment Standby Continuous SpO2 Machine # 13 Additional RT Notes Other pt not in room Intake & Output 04/20/18 04/21/18 04/22/18 06:59 06:59 06:59 Intake Total 1471.5 1054 0.5 Output Total 1800 3000 Balance -328.5 1054 -2999.5 Weight 67.9 kg 66 kg General appearance: PRESENT: cooperative, mild distress, well-developed - But very frail appearing 72-year-old patient who looks older than his stated age. Head exam: PRESENT: other - Temporal wasting Eye exam: PRESENT: conjunctiva pale Mouth exam: PRESENT: moist, tongue midline Respiratory exam: PRESENT: rales, tachypnea. ABSENT: wheezes Cardiovascular exam: PRESENT: irregular rhythm, +S1, +S2 GI/Abdominal exam: PRESENT: normal bowel sounds, soft. ABSENT: tenderness Neurological exam: PRESENT: alert, awake, oriented to person, oriented to place, oriented to situation Psychiatric exam: PRESENT: flat affect. ABSENT: agitated, anxious Results Laboratory Results: 04/21/18 04:50 04/21/18 04:50 04/21/18 04/21/18 04:50 04:50 WBC 6.5 RBC 3.16 L Hgb 9.6 L Hct 30.8 L MCV 97 MCH 30.5 MCHC 31.4 L RDW 20.2 H Plt Count 122 L Sodium 136.6 L Potassium 5.0 Chloride 95 L Carbon Dioxide 26 Anion Gap 16 BUN 50 H Creatinine 5.23 H Est GFR ( Amer) 13 L Est GFR (Non-Af Amer) 11 L Glucose 128 H Calcium 7.8 L 04/09/18 04/09/18 04/10/18 15:35 15:35 00:20 Creatine Kinase 71 57 CK-MB (CK-2) 9.29 H Troponin I 0.074 04/10/18 04/10/18 04/10/18 00:20 06:54 06:54 Creatine Kinase 51 L CK-MB (CK-2) 6.53 H 6.02 H Troponin I 0.076 0.079 04/13/18 04/13/18 23:10 23:10 Creatine Kinase 46 L CK-MB (CK-2) 5.81 H Troponin I 0.080 Impressions: Chest X-Ray 04/09/18 15:51 IMPRESSION: Cardiomegaly with pulmonary vascular congestion and pleural effusions. Bibasilar atelectasis. Status post CABG. Assessment & Plan - Diagnosis (1) End-stage renal disease (ESRD) Is this a current diagnosis for this admission?: Yes Plan: The patient had good response to hemodialysis today. He is still intent on a trial of peritoneal dialysis at home despite recommendations against by nephrology. Once again we had a discussion about his prognosis and likely outcome which I reminded him would not be good. He wants to try. He has been in touch with hospice and is completely aware of taking that direction but he admits that he is scared. He will discharge to home tomorrow morning. He will resume his normal peritoneal dialysis at home. There is a high likelihood that he will return with volume overload. Home health with shelter, PT and OT has been ordered. (2) Acute on chronic diastolic congestive heart failure, NYHA class 4 Is this a current diagnosis for this admission?: Yes Plan: Fluid management by dialysis. Continue metoprolol. (3) Coronary artery disease Qualifiers: Coronary Disease-Associated Artery/Lesion type: [place] artery [place] vs. transplanted heart: [place] heart Associated angina: without angina Qualified Code(s): I25.10 - Atherosclerotic heart disease of [place] coronary artery without angina pectoris Is this a current diagnosis for this admission?: Yes Plan: Continue current medical regimen including aspirin. (4) Hypothyroid Qualifiers: Hypothyroidism type: unspecified Qualified Code(s): E03.9 - Hypothyroidism, unspecified Is this a current diagnosis for this admission?: Yes Plan: Continue current levothyroxine (5) Hypoxemia Is this a current diagnosis for this admission?: Yes Plan: Chronic and requiring oxygen supplementation. He will continue his oxygen therapy at home. (6) Fluid overload Qualifiers: Hypervolemia type: other Qualified Code(s): E87.79 - Other fluid overload Is this a current diagnosis for this admission?: Yes Plan: Fluid management by dialysis. (7) Hyperkalemia Is this a current diagnosis for this admission?: Yes Plan: Resolved. He is potassium should be monitored. This will be either by his primary care physician or nephrology (8) Acute kidney injury superimposed on chronic kidney disease Is this a current diagnosis for this admission?: Yes Plan: The slight worsening of his BUN and creatinine seem to be back at baseline with his hemodialysis treatments here in the hospital. (9) Back pain Qualifiers: Back pain location: low back pain Is this a current diagnosis for this admission?: Yes Plan: The patient was having significant back pain today. Oral medications were not as effective as they usually are. I have ordered intravenous morphine to try and relieve his pain. (10) Venous insufficiency of both lower extremities Is this a current diagnosis for this admission?: Yes Plan: Wound care will be seeing the patient at home. Because of the chronicity of his insufficiency and edema as well as chronic skin changes he always tends to have an area of ulceration somewhere on his legs. (11) Weakness Is this a current diagnosis for this admission?: Yes Plan: This is a combination of all of his comorbidities and his ongoing slow decline. We will have physical and occupational therapy visit the patient through home health services. - Time Time Spent with patient: 25-34 minutes Medications reviewed and adjusted accordingly: Yes Anticipated discharge: Home Within: within 24 hours
[2018-04-22] MEDS: LEVOTHYROXINE SODIUM 0.112 MG TABLET PO SCH (05:49)
[2018-04-22] MEDS: CALCIUM ACETATE 667 MG CAPSULE PO SCH ×3 (05:49→17:51)
[2018-04-22] MEDS: HEPARIN SOD (PORCINE) 5,000 UNIT/ML 1 ML SYRINGE SUBCUT SCH ×3 (05:50→21:13)
[2018-04-22 07:37] LABS: ANION GAP 13 (5-19); BLOOD UREA NITROGEN 41 mg/dL (7-20); CALCIUM 7.6 mg/dL (8.4-10.2); CARBON DIOXIDE 28 mmol/L (22-30); CHLORIDE 98 mmol/L (98-107); GLUCOSE 118 mg/dL (75-110); POTASSIUM 4.8 mmol/L (3.6-5.0); SODIUM 138.8 mmol/L (137-145)
[2018-04-22] MEDS: OXYCODONE-ACETAMINOPHEN 5-325 MG TABLET PO PRN ×3 (07:41→21:18)
[2018-04-22] MEDS: ALBUTEROL SULFATE HFA (90 MCG/PUFF) 200 PUFF/8.5 GM MDI IH PRN (10:31)
[2018-04-22] MEDS: FLUTICASONE/SALMETEROL DISKUS 250-50 MCG/DOSE IH SCH ×2 (10:32→21:19)
[2018-04-22] MEDS: ASPIRIN 81 MG TABLET, CHEWABLE PO SCH (10:32)
[2018-04-22] MEDS: PANTOT AC/MIN OIL/PET HY-PHL OINT 50 GM TOP SCH ×2 (10:32→17:55)
[2018-04-22] MEDS: LACTULOSE SYRUP 20 GM/30 ML UDCUP PO SCH (10:33)
[2018-04-22] MEDS: GENTAMICIN SULFATE 0.1% CREAM 15 GM TP SCH (10:35)
[2018-04-22] MEDS: DOCUSATE SODIUM 100 MG CAPSULE PO SCH ×2 (10:35→17:51)
[2018-04-22] MEDS: FOLIC ACID 1 MG TABLET PO SCH (10:35)
[2018-04-22] MEDS: FERROUS SULFATE 325 MG TABLET PO SCH ×3 (10:35→17:51)
[2018-04-22] MEDS: MIDODRINE HCL 5 MG TABLET PO SCH ×3 (10:36→17:55)
[2018-04-22] MEDS: POLYETHYLENE GLYCOL 3350 POWDER 17 GM/1 PACKET PO SCH (10:36)
[2018-04-22] MEDS: METOPROLOL SUCCINATE 50 MG TAB.SR.24H PO SCH (10:36)
[2018-04-22] MEDS: MULTIVIT-STRESS FORMULA/ZINC TABLET PO SCH (10:36)
[2018-04-22] MEDS: NYSTATIN/DEXAMETH/DIPHEN SUSP 120 ML PO SCH ×4 (10:36→21:19)
[2018-04-22] MEDS: MORPHINE SULFATE 10 MG/ML INJ IV PRN ×2 (10:37→20:52)
--- NOTE | 2018-04-22 16:26 | PDOC PROGRESS REPORT ---
Subjective Progress Note for:: 04/22/18 Subjective:: No overnight events. Patient states that he has pain in his torso and notes continued abdominal distention/tightness despite having hemodialysis yesterday. Pt complaining of generalized weakness that has been progressively worse over the last 3-4 months. States that he is unclear about his prison health plans. Does not want to go on HD if that is required and would be amenable to hospice. [place] that he is still not at his dry weight and would open to another dialysis session. Otherwise has no new complaints at time of my examination. 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: HEART FAILURE Physical Exam Vital Signs: Temp Pulse Resp BP Pulse Ox 99 F 81 16 136/65 H 93 04/22/18 08:00 04/22/18 14:00 04/22/18 08:00 04/22/18 08:00 04/22/18 08:00 Pulse Oximeter Continuous Start: 04/09/18 19:06 Freq: RTQ4 Status: Complete Protocol: Document 04/12/18 08:00 HCR (Rec: 04/12/18 12:16 HCR [email or web address]) Pulse Oximetry Assessment Equipment Usage Equipment Standby Continuous SpO2 Machine # 13 Additional RT Notes Other pt not in room Intake & Output 04/21/18 04/22/18 04/23/18 06:59 06:59 06:59 Intake Total 1054 1645.5 Output Total 3000 Balance 1054 -1354.5 Weight 66 kg 66.9 kg General appearance: PRESENT: no acute distress, cooperative, thin Mouth exam: PRESENT: moist Cardiovascular exam: PRESENT: irregular rhythm. ABSENT: tachycardia GI/Abdominal exam: PRESENT: distended, tenderness - mild, other - abdomen is tight Extremities exam: PRESENT: +1 edema Neurological exam: PRESENT: alert, awake, CN II-XII grossly intact Psychiatric exam: PRESENT: appropriate affect, normal mood Skin exam: PRESENT: intact Results Laboratory Results: 04/21/18 04:50 04/22/18 07:00 04/22/18 04/22/18 05:00 07:00 Sodium Cancelled 138.8 Potassium Cancelled 4.8 Chloride Cancelled 98 Carbon Dioxide Cancelled 28 Anion Gap Cancelled 13 BUN Cancelled 41 H Creatinine Cancelled 4.88 H Est GFR ( Amer) Cancelled 14 L Est GFR (Non-Af Amer) Cancelled 12 L Glucose Cancelled 118 H Calcium Cancelled 7.6 L 04/09/18 04/09/18 04/10/18 15:35 15:35 00:20 Creatine Kinase 71 57 CK-MB (CK-2) 9.29 H Troponin I 0.074 04/10/18 04/10/18 04/10/18 00:20 06:54 06:54 Creatine Kinase 51 L CK-MB (CK-2) 6.53 H 6.02 H Troponin I 0.076 0.079 04/13/18 04/13/18 23:10 23:10 Creatine Kinase 46 L CK-MB (CK-2) 5.81 H Troponin I 0.080 Impressions: Chest X-Ray 04/09/18 15:51 IMPRESSION: Cardiomegaly with pulmonary vascular congestion and pleural effusions. Bibasilar atelectasis. Status post CABG. Assessment & Plan - Diagnosis (1) End-stage renal disease (ESRD) Is this a current diagnosis for this admission?: Yes Plan: At home is on PD - Last received hemodialysis on 04/21 - Pt's stated goal is to return home and continue peritoneal dialysis at home if possible - We had shara discussion that patient may not be able to continue PD. PT states that he does now want to do HD - Has spoke to palliative care and considering hospice care - Give current volume status, I do not feel comfortable discharging patient. Unfortunately it does not appear that he can get HD over the weekend and likely will need session on Tuesday. (2) Acute on chronic diastolic congestive heart failure, NYHA class 4 Is this a current diagnosis for this admission?: Yes Plan: Continue current management (3) Back pain Qualifiers: Back pain location: low back pain Is this a current diagnosis for this admission?: Yes Plan: Well controlled, CTM (4) Weakness Is this a current diagnosis for this admission?: Yes Plan: This has been subacute and progressive - Has previous orders for home health with [facility], PT and OT - Discussed again with RN that PT should work with patient over the weekend to prevent further deconditioning - Time Time Spent with patient: Less than 15 minutes Anticipated discharge: Home with Homehealth, SNF - NEeds formal PT evaluation to determine dispo status Within: within 48 hours
[2018-04-22] MEDS: IPRATROPIUM/ALBUTEROL 0.5-2.5 MG/3 ML AMPUL NEB PRN ×2 (18:54→22:41)
[2018-04-22] MEDS: LORAZEPAM 0.5 MG TABLET PO PRN (19:44)
[2018-04-22] MEDS: ZOLPIDEM TARTRATE 5 MG TABLET PO PRN (21:18)
[2018-04-22] MEDS: MIRTAZAPINE 15 MG TABLET PO SCH (21:18)
[2018-04-22] MEDS: ATORVASTATIN CALCIUM 10 MG TABLET PO SCH (21:19)
[2018-04-22] MEDS: TRAZODONE HCL 50 MG TABLET PO PRN (21:19)
[2018-04-22] MEDS: TIOTROPIUM BROMIDE DPI 5 CAP/KIT (18 MCG/CAP) IH SCH (22:35)
[2018-04-23] MEDS: OXYCODONE-ACETAMINOPHEN 5-325 MG TABLET PO PRN (06:12)
[2018-04-23] MEDS: LEVOTHYROXINE SODIUM 0.112 MG TABLET PO SCH (06:13)
[2018-04-23] MEDS: CALCIUM ACETATE 667 MG CAPSULE PO SCH ×3 (06:13→18:00)
[2018-04-23] MEDS: HEPARIN SOD (PORCINE) 5,000 UNIT/ML 1 ML SYRINGE SUBCUT SCH ×3 (06:39→21:08)
[2018-04-23] MEDS: MORPHINE SULFATE 10 MG/ML INJ IV PRN ×2 (10:12→18:02)
[2018-04-23] MEDS: ALBUTEROL SULFATE HFA (90 MCG/PUFF) 200 PUFF/8.5 GM MDI IH PRN (10:17)
[2018-04-23] MEDS: FLUTICASONE/SALMETEROL DISKUS 250-50 MCG/DOSE IH SCH ×2 (10:17→21:07)
[2018-04-23] MEDS: PANTOT AC/MIN OIL/PET HY-PHL OINT 50 GM TOP SCH ×2 (10:18→18:00)
[2018-04-23] MEDS: FOLIC ACID 1 MG TABLET PO SCH (10:18)
[2018-04-23] MEDS: ASPIRIN 81 MG TABLET, CHEWABLE PO SCH (10:18)
[2018-04-23] MEDS: METOPROLOL SUCCINATE 50 MG TAB.SR.24H PO SCH (10:19)
[2018-04-23] MEDS: MULTIVIT-STRESS FORMULA/ZINC TABLET PO SCH (10:19)
[2018-04-23] MEDS: GENTAMICIN SULFATE 0.1% CREAM 15 GM TP SCH (10:20)
[2018-04-23] MEDS: DOCUSATE SODIUM 100 MG CAPSULE PO SCH ×2 (10:20→18:00)
[2018-04-23] MEDS: LACTULOSE SYRUP 20 GM/30 ML UDCUP PO SCH (10:20)
[2018-04-23] MEDS: FERROUS SULFATE 325 MG TABLET PO SCH ×3 (10:20→18:01)
[2018-04-23] MEDS: POLYETHYLENE GLYCOL 3350 POWDER 17 GM/1 PACKET PO SCH (10:21)
[2018-04-23] MEDS: NYSTATIN/DEXAMETH/DIPHEN SUSP 120 ML PO SCH ×4 (10:21→21:08)
[2018-04-23] MEDS: MIDODRINE HCL 5 MG TABLET PO SCH ×3 (10:22→18:01)
[2018-04-23] MEDS: SERTRALINE HCL 50 MG TABLET PO SCH (12:20)
[2018-04-23] MEDS: LORAZEPAM 0.5 MG TABLET PO PRN (12:20)
[2018-04-23] MEDS: IPRATROPIUM/ALBUTEROL 0.5-2.5 MG/3 ML AMPUL NEB PRN (14:00)
--- NOTE | 2018-04-23 16:44 | PDOC PROGRESS REPORT ---
Subjective Progress Note for:: 04/23/18 Subjective:: No overnight events. Continues to endorse torso/back pain which he feels is due to abdominal distention/tightness and laying in bed. Feels weakness. Also admits to more anxiety/depression and asking for something to help "my mind from constantly running". AMenable to getting hemodialysis tomorrow. Still wants to go home prior to making formal decision about next steps of care. Otherwise has no new complaints at time of my examination. 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: HEART FAILURE Physical Exam Vital Signs: Temp Pulse Resp BP Pulse Ox 98.3 F 99 17 95/50 L 94 04/23/18 11:18 04/23/18 14:00 04/23/18 11:18 04/23/18 11:18 04/23/18 11:18 Pulse Oximeter Continuous Start: 04/09/18 19:06 Freq: RTQ4 Status: Complete Protocol: Document 04/12/18 08:00 HCR (Rec: 04/12/18 12:16 HCR [email or web address]) Pulse Oximetry Assessment Equipment Usage Equipment Standby Continuous SpO2 Machine # 13 Additional RT Notes Other pt not in room Intake & Output 04/22/18 04/23/18 04/24/18 06:59 06:59 06:59 Intake Total 1645.5 1337 Output Total 3000 0 Balance -1354.5 1337 Weight 66.9 kg 68.2 kg General appearance: PRESENT: cooperative, mild distress - Secondary to abdominal distension, well-developed, well-nourished Mouth exam: PRESENT: moist Respiratory exam: PRESENT: unlabored. ABSENT: tachypnea Cardiovascular exam: PRESENT: +S1, +S2. ABSENT: tachycardia GI/Abdominal exam: PRESENT: distended, soft Extremities exam: PRESENT: +2 edema Neurological exam: PRESENT: alert, awake, CN II-XII grossly intact Psychiatric exam: PRESENT: anxious, normal mood Skin exam: PRESENT: intact Results Laboratory Results: 04/21/18 04:50 04/22/18 07:00 04/09/18 04/09/18 04/10/18 15:35 15:35 00:20 Creatine Kinase 71 57 CK-MB (CK-2) 9.29 H Troponin I 0.074 04/10/18 04/10/18 04/10/18 00:20 06:54 06:54 Creatine Kinase 51 L CK-MB (CK-2) 6.53 H 6.02 H Troponin I 0.076 0.079 04/13/18 04/13/18 23:10 23:10 Creatine Kinase 46 L CK-MB (CK-2) 5.81 H Troponin I 0.080 Impressions: Chest X-Ray 04/09/18 15:51 IMPRESSION: Cardiomegaly with pulmonary vascular congestion and pleural effusions. Bibasilar atelectasis. Status post CABG. Assessment & Plan - Diagnosis (1) End-stage renal disease (ESRD) Is this a current diagnosis for this admission?: Yes Plan: At home is on PD - Last received hemodialysis on 04/21, next on Monday 04/24 - Pt's stated goal is to return home and continue peritoneal dialysis at home if possible - We had shara discussion that patient may not be able to continue PD. PT states that he does now want to do HD - Has spoke to palliative care and considering hospice care - Give current volume status, will need full session for d/c planning (2) Acute on chronic diastolic congestive heart failure, NYHA class 4 Is this a current diagnosis for this admission?: Yes Plan: Continue current management (3) Back pain Qualifiers: Back pain location: low back pain Is this a current diagnosis for this admission?: Yes Plan: Likely multifactorial due to chronic back pain, debility, and bed mattress - Continue current pain management (4) Weakness Is this a current diagnosis for this admission?: Yes Plan: This has been subacute and progressive - Has previous orders for home health with [facility], PT and OT - PT consult placed again on 04/24; needs evaluation and daily sessions to prevent further deconditioning (5) Depression (emotion) Qualifiers: Depression Type: reactive depression Qualified Code(s): F32.9 - Major depressive disorder, single episode, unspecified Is this a current diagnosis for this admission?: Yes Plan: Depressed due to end stage disease; noted increased depression/anxiety today - Reviewed medications - Discontinued Remeron - Started Zoloft 20mg PO daily which should help with depression and generalized anxiety - Had ativan PRN for anxiety - COntinue trazodone which should help with mood and sleep - Time Time Spent with patient: 15-24 minutes Medications reviewed and adjusted accordingly: Yes Anticipated discharge: Home with Homehealth Within: within 48 hours
[2018-04-23] MEDS: CALCIUM CARBONATE 500 MG TAB.CHEW PO PRN (20:26)
[2018-04-23] MEDS: TIOTROPIUM BROMIDE DPI 5 CAP/KIT (18 MCG/CAP) IH SCH (21:08)
[2018-04-23] MEDS: ATORVASTATIN CALCIUM 10 MG TABLET PO SCH (21:08)
[2018-04-23] MEDS: TRAZODONE HCL 50 MG TABLET PO PRN (23:04)
[2018-04-23] MEDS ORDERED: ZOLPIDEM TARTRATE 5 MG TABLET PO PRN (23:12)
[2018-04-24] MEDS: LEVOTHYROXINE SODIUM 0.112 MG TABLET PO SCH (06:00)
[2018-04-24] MEDS: CALCIUM ACETATE 667 MG CAPSULE PO SCH ×3 (06:00→17:44)
[2018-04-24] MEDS: HEPARIN SOD (PORCINE) 5,000 UNIT/ML 1 ML SYRINGE SUBCUT SCH ×2 (06:00→13:08)
[2018-04-24] MEDS: OXYCODONE-ACETAMINOPHEN 5-325 MG TABLET PO PRN ×3 (06:04→17:43)
[2018-04-24 07:01] LABS: ANION GAP 19 (5-19); BLOOD UREA NITROGEN 69 mg/dL (7-20); CALCIUM 7.7 mg/dL (8.4-10.2); CARBON DIOXIDE 21 mmol/L (22-30); CHLORIDE 99 mmol/L (98-107); GLUCOSE 78 mg/dL (75-110); POTASSIUM 5.2 mmol/L (3.6-5.0); SODIUM 138.9 mmol/L (137-145)
[2018-04-24] MEDS: SERTRALINE HCL 50 MG TABLET PO SCH (10:27)
[2018-04-24] MEDS: LORAZEPAM 0.5 MG TABLET PO PRN (10:27)
[2018-04-24] MEDS: METOPROLOL SUCCINATE 50 MG TAB.SR.24H PO SCH (10:28)
[2018-04-24] MEDS ORDERED: NORMAL SALINE 1000 ML 1,000 ML IV PRN (10:29)
[2018-04-24] MEDS: MIDODRINE HCL 5 MG TABLET PO SCH ×3 (10:29→17:30)
--- NOTE | 2018-04-24 10:43 | PDOC PROGRESS REPORT ---
Subjective Progress Note for:: 04/24/18 Subjective:: I saw the patient during dialysis this morning. He is tolerating dialysis well without any problems at this point. Patient states that he wants to go home and still mention about peritoneal dialysis. I told him he is too weak to do peritoneal dialysis and at this point the plan is to continue hemodialysis even if he goes home. Patient's lower extremity swelling and scrotal swelling has significantly improved from ultrafiltration from hemodialysis for the past week. 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: HEART FAILURE Physical Exam Vital Signs: Temp Pulse Resp BP Pulse Ox 97.5 F 97 15 102/69 92 04/24/18 07:37 04/24/18 07:37 04/24/18 07:37 04/24/18 07:37 04/24/18 07:37 Pulse Oximeter Continuous Start: 04/09/18 19:06 Freq: RTQ4 Status: Complete Protocol: Document 04/12/18 08:00 HCR (Rec: 04/12/18 12:16 HCR [email or web address]) Pulse Oximetry Assessment Equipment Usage Equipment Standby Continuous SpO2 Machine # 13 Additional RT Notes Other pt not in room Intake & Output 04/23/18 04/24/18 04/25/18 06:59 06:59 06:59 Intake Total 1337 1000 Output Total 0 0 Balance 1337 1000 Weight 68.2 kg 68.2 kg Vitals during dialysis: Blood pressure 114/82, heart rate of 93, blood flow rate of 350 mL/min and dialysate flow rate of 800ml/min. Exam: General appearance: PRESENT: no acute distress, cooperative, well-developed, well-nourished Head exam: PRESENT: atraumatic, normocephalic Eye exam: PRESENT: conjunctiva pale PERRLA. ABSENT: scleral icterus Neck exam: ABSENT: JVD Respiratory exam: PRESENT: Diminished breath sounds. ABSENT: crackles, rales, rhonchi, unlabored, wheezes Cardiovascular exam: PRESENT: Irregularly irregular rate rhythm -+S1, +S2. ABSENT: diastolic murmur, systolic murmur GI/Abdominal exam: PRESENT: normal bowel sounds, soft. ABSENT: guarding, mass, tenderness Extremities exam: Improved bilateral grade 1 lower extremity pitting edema Neurological exam: PRESENT: alert, awake, oriented to person, place and time. Skin exam: PRESENT: dry, warm, Cardiovascular exam: PRESENT: +S1, +S2, systolic murmur GI/Abdominal exam: PRESENT: normal bowel sounds, soft. ABSENT: organomegaly, tenderness Results Laboratory Results: 04/21/18 04:50 04/24/18 05:38 04/24/18 05:38 Sodium 138.9 Potassium 5.2 H Chloride 99 Carbon Dioxide 21 L Anion Gap 19 BUN 69 H Creatinine 7.96 H Est GFR ( Amer) 8 L Est GFR (Non-Af Amer) 7 L Glucose 78 Calcium 7.7 L 04/09/18 04/09/18 04/10/18 15:35 15:35 00:20 Creatine Kinase 71 57 CK-MB (CK-2) 9.29 H Troponin I 0.074 04/10/18 04/10/18 04/10/18 00:20 06:54 06:54 Creatine Kinase 51 L CK-MB (CK-2) 6.53 H 6.02 H Troponin I 0.076 0.079 04/13/18 04/13/18 23:10 23:10 Creatine Kinase 46 L CK-MB (CK-2) 5.81 H Troponin I 0.080 Impressions: Chest X-Ray 04/09/18 15:51 IMPRESSION: Cardiomegaly with pulmonary vascular congestion and pleural effusions. Bibasilar atelectasis. Status post CABG. Assessment & Plan - Diagnosis (1) End-stage renal disease (ESRD) Is this a current diagnosis for this admission?: Yes Plan: We will do dialysis today for 2.5 hours, using the patient's right IJ PermCath, with 2 potassium bath, blood flow rate of 350 mL per minute, dialysate flow rate of 800 mL per minute, ultrafiltration 2 L as tolerated, no heparin and Procrit with 10,000 units during dialysis intravenously. Patient will be continuously monitored throughout dialysis treatment. From nephrology standpoint I think the patient can go home if that is his wish. Plan is to continue outpatient hemodialysis 3 times a week as the patient is too weak to do peritoneal dialysis at home. Reiterated this to the patient. (2) Acute on chronic diastolic congestive heart failure, NYHA class 4 Is this a current diagnosis for this admission?: Yes Plan: Much improved with ultrafiltration. (3) Hyperkalemia Is this a current diagnosis for this admission?: Yes Plan: Use low potassium bath during dialysis. Advised regarding low potassium diet. (4) Anemia in chronic kidney disease (CKD) Is this a current diagnosis for this admission?: Yes Plan: Procrit given during dialysis today. (5) Hyperphosphatemia Is this a current diagnosis for this admission?: Yes Plan: Continue phosphorus binders. (6) Venous insufficiency of both lower extremities Is this a current diagnosis for this admission?: Yes (7) Depression Is this a current diagnosis for this admission?: Yes Plan: Patient on Zoloft. (8) Weakness Is this a current diagnosis for this admission?: Yes Plan: Ideally patient needs rehabilitation and continues physical therapy the patient is refusing rehab placement. The patient is going home probably good to arrange for outpatient physical therapy. - Notes Notes: From nephrology standpoint patient may go home anytime after today. Patient to continue outpatient hemodialysis at [facility] once discharged home. - Time Time with patient: 15-25 minutes
[2018-04-24] MEDS ORDERED: EPOETIN ALFA 10,000 UNIT in SYRINGE, DISPOSABLE, 1 EACH IV PRN (10:44)
[2018-04-24] MEDS: POLYETHYLENE GLYCOL 3350 POWDER 17 GM/1 PACKET PO SCH (12:54)
[2018-04-24] MEDS: ASPIRIN 81 MG TABLET, CHEWABLE PO SCH (12:54)
[2018-04-24] MEDS: DOCUSATE SODIUM 100 MG CAPSULE PO SCH ×2 (12:54→17:44)
[2018-04-24] MEDS: NYSTATIN/DEXAMETH/DIPHEN SUSP 120 ML PO SCH ×3 (12:54→17:44)
[2018-04-24] MEDS: LACTULOSE SYRUP 20 GM/30 ML UDCUP PO SCH (12:54)
[2018-04-24] MEDS: FERROUS SULFATE 325 MG TABLET PO SCH ×3 (12:54→17:44)
[2018-04-24] MEDS: MULTIVIT-STRESS FORMULA/ZINC TABLET PO SCH (12:54)
[2018-04-24] MEDS: FLUTICASONE/SALMETEROL DISKUS 250-50 MCG/DOSE IH SCH (12:55)
[2018-04-24] MEDS: FOLIC ACID 1 MG TABLET PO SCH (12:55)
[2018-04-24] MEDS: GENTAMICIN SULFATE 0.1% CREAM 15 GM TP SCH (12:56)
[2018-04-24] MEDS: PANTOT AC/MIN OIL/PET HY-PHL OINT 50 GM TOP SCH ×2 (12:58→17:51)
[2018-04-24] MEDS: IPRATROPIUM/ALBUTEROL 0.5-2.5 MG/3 ML AMPUL NEB PRN (14:36)
[2018-04-24 17:31] VITALS: BP 114/65
--- NOTE | 2018-04-27 14:59 | PDOC DISCHARGE SUMMARY ---
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 Is this a current diagnosis for this admission?: Yes (6) ESRD (end stage renal disease) Is this a current diagnosis for this admission?: Yes - Additional Information Resuscitation Status: Full Code Discharge Diet: Cardiac Discharge Activity: Balance Activity w/Rest, Energy Conservation, Slowly Increase Activity Prescriptions: Gentamicin Sulfate [Garamycin 0.1% Cream 15 gm] 1 applic TP DAILY 30 Days #30 tube Lorazepam [Ativan 0.5 mg Tablet] 0.25 mg PO Q8HP PRN 20 Days #20 tablet PRN Reason: Metoprolol Succinate [Toprol Xl 50 mg Tab.sr] 50 mg PO DAILY 30 Days #30 tab.sr.24h Mirtazapine [Remeron 15 mg Tablet] 15 mg PO QHS 30 Days #30 tab Nitroglycerin [Nitrostat 0.4 mg (1/150 Gr) Tabs 25/Bottle] 1 tab SL Q5MP PRN 30 Days #1 bottle PRN Reason: Oxycodone HCl/Acetaminophen [Percocet 5-325 mg Tablet] 1 - 2 tab PO Q6HP PRN 10 Days #20 tablet PRN Reason: For Pain Pantot AC/Min Oil/Pet Hy-Phl [Aquaphor W-Brenda Heal Oint 50 gm] 1 applic TOP BID 30 Days #400 gm Sertraline HCl [Zoloft 50 mg Tablet] 25 mg PO DAILY #30 tablet Trazodone HCl [Desyrel 50 mg Tablet] 50 mg PO HSP PRN 30 Days #30 tablet PRN Reason: Sleep Or Insomnia Zolpidem Tartrate [Ambien] 10 mg PO HSP PRN 30 Days #30 tablet PRN Reason: Sleep Or Insomnia Home Medications: Aspirin [Adult Low Dose Aspirin EC] 81 mg PO QAM 04/10/18 Atorvastatin Calcium [Lipitor 10 mg Tablet] 10 mg PO QHS 04/10/18 Calcium Acetate [Phoslo 667 mg Capsule] 667 mg PO MEALS 04/10/18 Docusate Sodium [Colace 100 mg Capsule] 100 mg PO BID 04/10/18 Ferrous Sulfate [Feosol 325 mg Tablet] 325 mg PO TID 04/10/18 Fluticasone/Salmeterol [Advair HFA 115-21 mcg Inhaler] 2 puff IH BID 04/10/18 Folic Acid [Folvite 1 mg Tablet] 1 mg PO QAM 04/10/18 Ipratropium/Albuterol Sulfate [Duoneb 3 ml Ampul] 3 ml NEB RTQ4HP PRN 04/10/18 Lactulose [Constulose 10 gm/15 mL Oral Solution] 10 ml PO Q12HP PRN 04/10/18 Levothyroxine Sodium 112 mcg PO Q6AM 04/10/18 Midodrine HCl 10 mg PO TID 04/10/18 Polyethylene Glycol 3350 [Miralax Powder 17 gm/Packet] 17 gm PO DAILY 04/10/18 Tiotropium Austin [Spiriva Respimat] 2 puff IH DAILY 04/10/18 Vitamin B Complex 1 tab PO QAM 04/10/18 Aspirin [Aspirin 81 mg Chewable Tablet] 81 mg PO DAILY tab.chew 04/21/18 Atorvastatin Calcium [Lipitor 10 mg Tablet] 10 mg PO QHS tablet 04/21/18 Benzocaine/Menthol [Chloraseptic Sore Throat Lozenge] 1 each BUCCAL Q4HP PRN lozenge 04/21/18 Calcium Acetate [Phoslo 667 mg Capsule] 667 mg PO 0600,1200,1700 capsule 04/21/18 Calcium Carbonate [Tums Chewable 500 mg Tab.chew] 500 mg PO Q4HP PRN tab.chew 04/21/18 Docusate Sodium [Colace 100 mg Capsule] 100 mg PO BID capsule 04/21/18 Ferrous Sulfate [Feosol 325 mg Tablet] 325 mg PO TID tablet 04/21/18 Folic Acid [Folvite 1 mg Tablet] 1 mg PO DAILY tablet 04/21/18 Gentamicin Sulfate [Garamycin 0.1% Cream 15 gm] 1 applic TP DAILY 30 Days #30 tube 04/21/18 Ipratropium/Albuterol Sulfate [Duoneb 3 ml Ampul] 3 ml NEB RTQ4HP PRN vial.neb 04/21/18 Lactulose [Cephulac Syrup 20 gm/30 ml Udcup] 10 gm PO Q12HP PRN udc 04/21/18 Levothyroxine Sodium [Synthroid 0.112 mg Tablet] 0.112 mg PO Q6AM tablet 04/21/18 Lorazepam [Ativan 0.5 mg Tablet] 0.25 mg PO Q8HP PRN 20 Days #20 tablet 04/21/18 Metoprolol Succinate [Toprol Xl 50 mg Tab.sr] 50 mg PO DAILY 30 Days #30 tab.sr.24h 04/21/18 Midodrine HCl [Proamatine 5 mg Tablet] 10 mg PO TID tablet 04/21/18 Mirtazapine [Remeron 15 mg Tablet] 15 mg PO QHS 30 Days #30 tab 04/21/18 Multivit-Stress Formula/Zinc [Zbec Tablet] 1 tab PO DAILY tablet 04/21/18 Nitroglycerin [Nitrostat 0.4 mg (1/150 Gr) Tabs 25/Bottle] 1 tab SL Q5MP PRN 30 Days #1 bottle 04/21/18 Oxycodone HCl/Acetaminophen [Percocet 5-325 mg Tablet] 1 - 2 tab PO Q6HP PRN 10 Days #20 tablet 04/21/18 Oxycodone HCl/Acetaminophen [Percocet 5-325 mg Tablet] 2 tab PO Q4HP PRN tablet 04/21/18 Pantot AC/Min Oil/Pet Hy-Phl [Aquaphor W-Brenda Heal Oint 50 gm] 1 applic TOP BID 30 Days #400 gm 04/21/18 Polyethylene Glycol 3350 [Miralax Powder 17 gm/Packet] 17 gm PO DAILY powd.pack 04/21/18 Tiotropium Austin [Spiriva Handihaler 5 Cap/Kit (18 Mcg/Cap)] 1 cap IH QHS kit 04/21/18 Trazodone HCl [Desyrel 50 mg Tablet] 50 mg PO HSP PRN tablet 04/21/18 Trazodone HCl [Desyrel 50 mg Tablet] 50 mg PO HSP PRN 30 Days #30 tablet 04/21/18 Zolpidem Tartrate [Ambien 5 mg Tablet] 10 mg PO HSP PRN tablet 04/21/18 Zolpidem Tartrate [Ambien] 10 mg PO HSP PRN 30 Days #30 tablet 04/21/18 Sertraline HCl [Zoloft 50 mg Tablet] 25 mg PO DAILY #30 tablet 04/24/18 History of Present Illness History of Present Illness: JULIANNA MCKEON JR is a 72 year old male with multiple admissions to [facility]. His most recent admission was March 16. He is currently at [facility]. The emergency department nurse reports that a discussion with the staff at [facility] reveals that the patient has not been compliant with his peritoneal dialysis. The patient states that he has been noticing increasing shortness of breath. He reports that he underwent hemodialysis treatments a week or 2 ago. He reports that he did not tolerate these treatments and he believes that in fact the increased his fluid retention. He stated that he does not tolerate hemodialysis. I suggested that he discuss that with Dr. Eric tomorrow. In addition to the shortness of breath he states that he has experienced chest pressure. He reports that it is similar to when he had his bypass surgery. He did have a positive troponin as well as a positive MB fraction. Distant to be elevated with kidney failure patients. Fortunately I do not have an EKG to review. Chest x-ray does show congestive failure with pleural effusion. He was referred to the hospitalist service for admission. Hospital Course Hospital Course: 72 y.o. M with a history of CHF, HTN, CAD, COPD and ESRD, previously on perito ousmane dialysis. The patient is now a resident of [facility] where he has been receiving hemodialysis. He states the hemodialysis makes him feel worse. The patient is very skeptical of medical providers and states he believes he was switched from PD to HD so "doctors can make more money." The patient expressed his desire to continue with PD, unfortunately there are no nursing homes in the area that provide this service. Palliative care and Nephrology were consulted. While the patient was hospitalized at [facility] he underwent several sessions of HD. Oftentimes, multiple liters of fluid were removed (3-4L) and the patient's respiratory status would improve. Despite his improvement, the patient remained adamant that HD made him feel worse, "like I've been run over by a bus." Case management was contacted to make arrangements for home health and setup palliative care at home. The hospitalist team discussed the gravity of the patient's decision with him, bluntly telling the patient that he will likely survive less than one year if he continues PD. The patient stated he understood this information, but still wanted to pursue PD rather than HD. The patient's son agreed to bring the patient into his home, where the patient could continue daily PD and receive assessments from the palliative care team. On hospital day #16 the patient was discharged home into the care of his son and under the management of palliative care. For further information regarding this patient's hospitalization, please refer to the EMR. Physical Exam Vital Signs: Temp Pulse Resp BP Pulse Ox 97.5 F 90 18 96/53 L 94 04/24/18 16:20 04/24/18 16:20 04/24/18 16:20 04/24/18 16:20 04/24/18 16:20 Pulse Oximeter Continuous Start: 04/09/18 19:06 Freq: RTQ4 Status: Complete Protocol: Document 04/12/18 08:00 HCR (Rec: 04/12/18 12:16 HCR [id number]) Pulse Oximetry Assessment Equipment Usage Equipment Standby Continuous SpO2 Machine # 13 Additional RT Notes Other pt not in room Results Laboratory Results: 04/21/18 04:50 04/24/18 05:38 04/09/18 04/09/18 04/10/18 15:35 15:35 00:20 Creatine Kinase 71 57 CK-MB (CK-2) 9.29 H Troponin I 0.074 04/10/18 04/10/18 04/10/18 00:20 06:54 06:54 Creatine Kinase 51 L CK-MB (CK-2) 6.53 H 6.02 H Troponin I 0.076 0.079 04/13/18 04/13/18 23:10 23:10 Creatine Kinase 46 L CK-MB (CK-2) 5.81 H Troponin I 0.080 Impressions: Chest X-Ray 04/09/18 15:51 IMPRESSION: Cardiomegaly with pulmonary vascular congestion and pleural effusions. Bibasilar atelectasis. Status post CABG. Qualifiers - * PATIENT BEING DISCHARGED WITH ANY OF THE FOLLOWING DIAGNOSIS: Heart Failure HF Pt being discharged on ACEI for LVEF less than 40%?: No Reason(s) for not prescribing ACEI:: Not indicated - ESTABLISHED HEART FAILURE PATIENT WITH RENAL FAILURE., Contraindicated - RENAL FAILURE HF Pt being discharged on ARBS for LVEF less than 40%?: No Reason(s) for not prescribing ARBS:: Not indicated - ESTABLISHED HEART FAILURE PATIENT. THIS IS NOT PART OF HIS HOME REGIMEN. HF Pt with Afib discharged with Warfarin?: No Reason(s) for not prescribing Warfarin:: Not indicated - PATIENT DOES NOT HAVE AFIB HF Pt discharged on evidence-based Beta Brennan:: Yes Plan Time Spent: Greater than 30 Minutes
== END 2018-04-24 19:43 | disposition home health service (06) | DRG 682 ==
LOC: ER 15:05 → EH 18:03 → 4N 20:35
PROVIDERS: ADMIT Hospitalist; ATTEND Hospitalist
PROC: 5A1D70Z Performance of Urinary Filtration, Intermittent, Less than 6 Hours Per Day (ICD-10-PCS; principal; 2018-04-10)
DX: N17.9 Acute kidney failure, unspecified (principal); I50.33 Acute on chronic diastolic (congestive) heart failure; I13.2 Hypertensive heart and chronic kidney disease with heart failure and with stage 5 chronic kidney disease, or end stage renal disease; N18.6 End stage renal disease; I48.91 Unspecified atrial fibrillation; I25.10 Atherosclerotic heart disease of native coronary artery without angina pectoris; D63.1 Anemia in chronic kidney disease; E83.39 Other disorders of phosphorus metabolism; J44.9 Chronic obstructive pulmonary disease, unspecified; E87.5 Hyperkalemia; E03.9 Hypothyroidism, unspecified; R09.02 Hypoxemia; I87.2 Venous insufficiency (chronic) (peripheral); M54.5 Low back pain; F32.9 Major depressive disorder, single episode, unspecified; Z99.2 Dependence on renal dialysis; Z91.15 Patient's noncompliance with renal dialysis; Z87.891 Personal history of nicotine dependence; Z79.82 Long term (current) use of aspirin; Z79.51 Long term (current) use of inhaled steroids; Z79.899 Other long term (current) drug therapy
CPT/HCPCS: 36415; 71045; 80048; 80053; 80069; 82550; 82553; 83735; 84100; 84484; 85025; 85027; 85610; 93005; 93010; 93306; 94640; 94762; 99284; J1644; J2270; J3010; J3490; J7620; Q4081

== ENCOUNTER 2018-05-09 15:12 | Inpatient (IN) | payer MEDICARE, OTHER ==
--- NOTE | 2018-05-09 16:03 | EKG REPORT ---
SEVERITY:- ABNORMAL ECG - ATRIAL FIBRILLATION LEFT BUNDLE BRANCH BLOCK INFERIOR Q WAVES, POSSIBLY DUE TO LBBB : Confirmed by: Kd Longoria MD 09-May-2018 16:01:57
[2018-05-09 17:08] LABS: MEAN CORPUSCULAR HEMOGLOBIN 29.5 pg (27.0-33.4); MEAN CORPUSCULAR HGB CONC 31.6 g/dL (32.0-36.0); MEAN CORPUSCULAR VOLUME 94 fl (80-97); PLATELET COUNT 155 10^3/uL (150-450); RED BLOOD COUNT 3.73 10^6/uL (4.35-5.55); RED CELL DISTRIBUTION WIDTH 19.2 % (11.5-14.0); WHITE BLOOD COUNT 10.1 10^3/uL (4.0-10.5)
--- NOTE | 2018-05-09 17:18 | RADIOLOGY REPORT (SQ) ---
EXAM DESCRIPTION: CHEST SINGLE VIEW COMPLETED DATE/TIME: 05/09/2018 4:58 pm REASON FOR STUDY: shortness of breath COMPARISON: 04/09/2018. FINDINGS: Single-view chest AP portable upright. Central line in place as before. Stable heart size. Central vascular congestion with mild pleural fluid. Similar appearance. No pne umothorax. TECHNICAL DOCUMENTATION: JOB ID: [id number] Reading location - IP/workstation name: [email or web address]
[2018-05-09 17:21] LABS: ABSOLUTE LYMPHOCYTES# (MANUAL) 0.4 10^3/uL (0.5-4.7); ABSOLUTE MONOCYTES # (MANUAL) 0.5 10^3/uL (0.1-1.4); ABSOLUTE NEUTROPHILS# (MANUAL) 9.2 10^3/uL (1.7-8.2); BASOPHILS % (MANUAL) 0 % (0-2); EOSINOPHILS % (MANUAL) 0 % (0-6); LYMPHOCYTES % (MANUAL) 4 % (13-45); MONOCYTES % (MANUAL) 5 % (3-13); SEGMENTED NEUTROPHILS % (MAN) 91 % (42-78); TOTAL CELLS COUNTED 100
[2018-05-09 17:22] LABS: ANISOCYTOSIS 2+; PLATELET COMMENT ADEQUATE; POIKILOCYTOSIS SLIGHT; TOXIC GRANULATION SLIGHT
[2018-05-09 17:30] LABS: ALANINE AMINOTRANSFERASE 24 U/L (21-72); ALBUMIN 3.7 g/dL (3.5-5.0); ALKALINE PHOSPHATASE 72 U/L (38-126); ASPARTATE AMINO TRANSFERASE 57 U/L (17-59); BILIRUBIN,DIRECT 0.6 mg/dL (0.0-0.4); BILIRUBIN,TOTAL 0.6 mg/dL (0.2-1.3); BLOOD UREA NITROGEN 110 mg/dL (7-20); CALCIUM 7.9 mg/dL (8.4-10.2); CREATINE KINASE 799 U/L (55-170); GLUCOSE 117 mg/dL (75-110); TOTAL PROTEIN 7.1 g/dL (6.3-8.2)
[2018-05-09] MEDS ORDERED: NALOXONE HCL INJ/PF 0.4 MG/1 ML SDV IV ONE (17:36)
[2018-05-09 17:38] LABS: ANION GAP 26 (5-19); CARBON DIOXIDE 15 mmol/L (22-30); CHLORIDE 94 mmol/L (98-107); SODIUM 134.9 mmol/L (137-145)
[2018-05-09 17:40] LABS: CREATINE KINASE MB 28.8 ng/mL (<4.55)
[2018-05-09 17:43] LABS: TROPONIN I 0.893 ng/mL
[2018-05-09] MEDS ORDERED: IPRATROPIUM/ALBUTEROL 0.5-2.5 MG/3 ML AMPUL NEB ONE (17:43)
--- NOTE | 2018-05-09 17:49 | ER Document Report ---
ED Respiratory Problem - General Chief Complaint: Breathing Difficulty Stated Complaint: POSSIBLE OVERDOSE Time Seen by Provider: 05/09/18 17:30 Primary Care Provider: CHAPARRITA VEGA MD [Primary Care Provider] - Follow up as needed Notes: 72-year-old male to the emergency department chief complaint of altered mental status, hypotension and confusion. Shortness of breath. Patient has renal failure. On dialysis. PD dialysis as well as intermittent hemodialysis. Went to see his phone banker today. Took all of his medications shortly before going to his an appointment including some narcotics. When he got to his appointment his blood pressure was low, patient seems somnolent and he was having low oxygen saturations. Patient was transferred here. On arrival patient is alert but somewhat sleepy. Refusing BiPAP. Refusing intubation. Refusing some of the care. TRAVEL OUTSIDE OF THE [place] IN LAST 30 DAYS: No - HPI Patient complains to provider of: COPD, Short of breath Onset: Just prior to arrival Severity: Moderate Pain Level: Denies Short of Breath: Moderate - Related Data Allergies/Adverse Reactions: Sulfa (Sulfonamide Antibiotics) Allergy (Verified 04/09/18 15:57) Past Medical History - General Information source: Patient - Social History Smoking Status: Never Smoker Frequency of alcohol use: None Drug Abuse: None Lives with: Family Family History: Hypertension Patient has suicidal ideation: No Patient has homicidal ideation: No - Past Medical History Cardiac Medical History: Reports: Hx Atrial Fibrillation, Hx Coronary Artery Disease, Hx Hypertension Denies: Hx Heart Attack Pulmonary Medical History: Reports: Hx COPD Denies: Hx Asthma Neurological Medical History: Denies: Hx Cerebrovascular Accident, Hx Seizures Renal/ Medical History: Reports: Hx End Stage Renal Disease. Denies: Hx Peritoneal Dialysis GI Medical History: Reports: Hx Hiatal Hernia. Denies: Hx Hepatitis, Hx Ulcer Musculoskeletal Medical History: Reports Hx Arthritis Psychiatric Medical History: Denies: Hx Depression Infectious Medical History: Denies: Hx Hepatitis Past Surgical History: Reports: Hx Cardiac Catheterization - CABG, Hx Cardiac Surgery, Hx Open Heart Surgery, Hx Vascular Surgery - PermCath placement. Denies: Hx Pacemaker - Immunizations Hx Pneumococcal Vaccination: 11/28/14 Review of Systems - Review of Systems Notes: Constitutional: denies: Chills, Diaphoresis, Fever, Malaise, Weakness EENT: denies: Eye discharge, Blurred vision, Tearing, Double vision, Nose con gestion, Nose discharge, Throat swelling, Mouth pain Cardiovascular: denies: Palpitations, Heart racing, Orthopnea, Dyspnea, Chest pain Respiratory: denies: Cough, Hurts to breathe, Wheezing, +Shortness of breath Gastrointestinal: denies: Abdominal pain, Diarrhea, Nausea, Vomiting, Black stools, bright red blood in stool Genitourinary: denies: Burning, Dysuria, Discharge, Frequency, Flank pain, Hematuria Musculoskeletal: denies: Joint pain, Joint swelling, Muscle pain, Muscle stiffness, back pain Hematologic/Lymphatic: denies: Anemia, Easy bleeding, Easy bruising, Blood clots Neurological/Psychological: denies: Confusion, Dementia, Depression, Loss of consciousness Skin: No lesions, no masses, no skin breakdown, no abscesses Physical Exam - Vital signs Vitals: Temp Resp BP Pulse Ox 98.8 F 29 H 148/90 H 91 L 05/09/18 15:35 05/09/18 15:35 05/09/18 15:35 05/09/18 15:35 Interpretation: Normal - General General appearance: Appears well, Alert - HEENT Head: Normocephalic, Atraumatic Eyes: Normal Pupils: PERRL - Respiratory Respiratory status: No respiratory distress Chest status: Nontender Breath sounds: Wheezing Chest palpation: Normal - Cardiovascular Rhythm: Regular Heart sounds: Normal auscultation Murmur: No Notes: angiocath right chest - Abdominal Inspection: Normal Distension: No distension Bowel sounds: Normal Tenderness: Nontender Organomegaly: No organomegaly - Back Back: Normal, Nontender - Extremities General upper extremity: Normal inspection, Nontender, Normal color, Normal ROM, Normal temperature General lower extremity: Other - Patient has chronic appearing peripheral vascular disease to the lower extremities. No necrosis present. Does have a sore on the right heel which is bandaged.. No: Melissa's sign - Neurological Neuro grossly intact: Yes Cognition: Normal Orientation: AAOx4 Carlos Coma Scale Eye Opening: Spontaneous Carlos Coma Scale Verbal: Oriented Carlos Coma Scale Motor: Obeys Commands Carlos Coma Scale Total: 15 Speech: Normal Motor strength normal: LUE, RUE, LLE, RLE Sensory: Normal - Psychological Associated symptoms: Normal affect, Normal mood - Skin Skin Temperature: Warm Skin Moisture: Dry Skin Color: Normal Course - Re-evaluation Re-evalutation: 05/09/18 18:13 Patient's mental status is much improved. Patient maintains normal mental status at this time and maintains the ability to deny medical care. Patient states that he wants to be treated he just does not want to be resuscitated or intubated in does not want to be on a BiPAP. Patient expressed the same sentiment to the nurse so at this time I am making the patient a DO NOT RESUSCITATE 05/09/18 21:28 Initial ABG showed a pH is 7.16. Slightly elevated PCO2 but not convincing. Does have an anion gap metabolic acidosis. Narcan was given and did seem to respond to that. He had a breathing treatment. Gave a small fluid bed bolus but concerning because he has congestive heart failure. His lactic acid is 1.1. He is afebrile. His blood pressure has been trending down so the possibility for sepsis exists. At this time and going to give him IV meropenem. Another breathing treatment, a repeat ABG was performed which shows a increasing PCO2 and a pH roughly the same. Patient is still refusing BiPAP. Patient refusing to be intubated and still asserts that he does not want to be resuscitated if he was into his severe respiratory failure or distress or fatal arrhythmia. 05/09/18 21:30 05/09/18 21:52 Consulted with patient's phone banker. There at their wits end with him as he does not want to be on dialysis and he is not a safe candidate for continued peritoneal dialysis. At this time Dr. Tee was consulted. She is okay with patient being admitted however he more than likely needs to be on hospice and be made a DNR. Patient has specifically told me that his wishes are to not be resuscitated. I have explained that at this time it does look like this could be a end-of-life admission and he is okay with that. 05/09/18 22:12 I had a conversation with Dr. Blackman and the patient at the bedside and Dr. Blackman had a conversation with him as well and I was a witness of. Patient in the presence of 2 physicians has stated that he does not want to be intubated or resuscitated. We talked about hospice and at this time he states that he is wanting to be kept comfortable. Will admit at this time. 05/09/18 22:12 Laboratory 05/09/18 05/09/18 05/09/18 16:50 16:50 16:50 WBC 10.1 RBC 3.73 L Hgb 11.0 L Hct 35.0 L MCV 94 MCH 29.5 MCHC 31.6 L RDW 19.2 H Plt Count 155 Total Counted 100 Seg Neutrophils % Not Reportable Seg Neuts % (Manual) 91 H Lymphocytes % Not Reportable Lymphocytes % (Manual) 4 L Monocytes % Not Reportable Monocytes % (Manual) 5 Eosinophils % Not Reportable Eosinophils % (Manual) 0 Basophils % Not Reportable Basophils % (Manual) 0 Absolute Neutrophils Not Reportable Abs Neuts (Manual) 9.2 H Absolute Lymphocytes Not Reportable Abs Lymphs (Manual) 0.4 L Absolute Monocytes Not Reportable Abs Monocytes (Manual) 0.5 Absolute Eosinophils Not Reportable Absolute Eos (Manual) 0.0 Absolute Basophils Not Reportable Abs Basophils (Manual) 0.0 Toxic Granulation SLIGHT Platelet Comment ADEQUATE Poikilocytosis SLIGHT Anisocytosis 2+ Carbonic Acid HCO3/H2CO3 Ratio ABG pH ABG pCO2 ABG pO2 ABG HCO3 ABG Total CO2 ABG O2 Saturation ABG Base Excess FiO2 Sodium 134.9 L Potassium 5.0 Chloride 94 L Carbon Dioxide 15 L Anion Gap 26 H BUN 110 H Creatinine 10.85 H Est GFR ( Amer) 6 L Est GFR (Non-Af Amer) 5 L Glucose 117 H Lactic Acid Calcium 7.9 L Total Bilirubin 0.6 Direct Bilirubin 0.6 H Neonat Total Bilirubin Not Reportable Neonat Direct Bilirubin Not Reportable Neonat Indirect Bili Not Reportable AST 57 ALT 24 Alkaline Phosphatase 72 Creatine Kinase 799 H CK-MB (CK-2) 28.80 H Troponin I 0.893 Total Protein 7.1 Albumin 3.7 05/09/18 05/09/18 05/09/18 16:50 17:55 19:10 WBC RBC Hgb Hct MCV MCH MCHC RDW Plt Count Total Counted Seg Neutrophils % Seg Neuts % (Manual) Lymphocytes % Lymphocytes % (Manual) Monocytes % Monocytes % (Manual) Eosinophils % Eosinophils % (Manual) Basophils % Basophils % (Manual) Absolute Neutrophils Abs Neuts (Manual) Absolute Lymphocytes Abs Lymphs (Manual) Absolute Monocytes Abs Monocytes (Manual) Absolute Eosinophils Absolute Eos (Manual) Absolute Basophils Abs Basophils (Manual) Toxic Granulation Platelet Comment Poikilocytosis Anisocytosis Carbonic Acid 1.49 H HCO3/H2CO3 Ratio 11:1 ABG pH 7.16 L* ABG pCO2 49.6 H ABG pO2 172.8 H ABG HCO3 17.3 L ABG Total CO2 18.8 L ABG O2 Saturation 98.7 H ABG Base Excess -11.0 FiO2 2L Sodium Potassium Chloride Carbon Dioxide Anion Gap BUN Creatinine Est GFR ( Amer) Est GFR (Non-Af Amer) Glucose Lactic Acid Cancelled 1.1 Calcium Total Bilirubin Direct Bilirubin Neonat Total Bilirubin Neonat Direct Bilirubin Neonat Indirect Bili AST ALT Alkaline Phosphatase Creatine Kinase CK-MB (CK-2) Troponin I Total Protein Albumin 05/09/18 05/09/18 20:30 20:55 WBC RBC Hgb Hct MCV MCH MCHC RDW Plt Count Total Counted Seg Neutrophils % Seg Neuts % (Manual) Lymphocytes % Lymphocytes % (Manual) Monocytes % Monocytes % (Manual) Eosinophils % Eosinophils % (Manual) Basophils % Basophils % (Manual) Absolute Neutrophils Abs Neuts (Manual) Absolute Lymphocytes Abs Lymphs (Manual) Absolute Monocytes Abs Monocytes (Manual) Absolute Eosinophils Absolute Eos (Manual) Absolute Basophils Abs Basophils (Manual) Toxic Granulation Platelet Comment Poikilocytosis Anisocytosis Carbonic Acid 1.78 H HCO3/H2CO3 Ratio 11:1 ABG pH 7.14 L* ABG pCO2 59.2 H ABG pO2 82.1 ABG HCO3 19.8 L ABG Total CO2 21.7 L ABG O2 Saturation 92.3 L ABG Base Excess -9.5 FiO2 2L Sodium Potassium Chloride Carbon Dioxide Anion Gap BUN Creatinine Est GFR ( Amer) Est GFR (Non-Af Amer) Glucose Lactic Acid Calcium Total Bilirubin Direct Bilirubin Neonat Total Bilirubin Neonat Direct Bilirubin Neonat Indirect Bili AST ALT Alkaline Phosphatase Creatine Kinase CK-MB (CK-2) Troponin I 0.872 Total Protein Albumin - Vital Signs Vital signs: Temp Pulse Resp BP Pulse Ox 98.8 F 17 109/68 90 L 05/09/18 15:35 05/09/18 21:00 05/09/18 21:00 05/09/18 21:05 - Laboratory Result Diagrams: 05/09/18 16:50 05/09/18 16:50 Laboratory results interpreted by me: 03/12/19 03/12/19 03/12/19 16:50 16:50 16:50 RBC 3.73 L Hgb 11.0 L Hct 35.0 L MCHC 31.6 L RDW 19.2 H Seg Neuts % (Manual) 91 H Lymphocytes % (Manual) 4 L Abs Neuts (Manual) 9.2 H Abs Lymphs (Manual) 0.4 L Carbonic Acid ABG pH ABG pCO2 ABG pO2 ABG HCO3 ABG Total CO2 ABG O2 Saturation Sodium 134.9 L Chloride 94 L Carbon Dioxide 15 L Anion Gap 26 H BUN 110 H Creatinine 10.85 H Est GFR ( Amer) 6 L Est GFR (Non-Af Amer) 5 L Glucose 117 H Calcium 7.9 L Direct Bilirubin 0.6 H Creatine Kinase 799 H CK-MB (CK-2) 28.80 H 05/09/18 05/09/18 17:55 20:55 RBC Hgb Hct MCHC RDW Seg Neuts % (Manual) Lymphocytes % (Manual) Abs Neuts (Manual) Abs Lymphs (Manual) Carbonic Acid 1.49 H 1.78 H ABG pH 7.16 L* 7.14 L* ABG pCO2 49.6 H 59.2 H ABG pO2 172.8 H ABG HCO3 17.3 L 19.8 L ABG Total CO2 18.8 L 21.7 L ABG O2 Saturation 98.7 H 92.3 L Sodium Chloride Carbon Dioxide Anion Gap BUN Creatinine Est GFR ( Amer) Est GFR (Non-Af Amer) Glucose Calcium Direct Bilirubin Creatine Kinase CK-MB (CK-2) - EKG Interpretation by [facility] [place]/QRS: Left axis deviation, LBBB When compared to previous EKG there are: No significant change Critical Care Note - Critical Care Note Total time excluding time spent on procedures (mins): 60 Discharge - Discharge Clinical Impression: Metabolic acidosis Respiratory failure Qualifiers: Chronicity: acute on chronic Respiratory failure complication: hypoxia and hypercapnia Qualified Code(s): J96.21 - Acute and chronic respiratory failure with hypoxia Renal failure (ARF), acute on chronic Qualifiers: Acute renal failure type: unspecified Chronic kidney disease stage: on chronic dialysis Qualified Code(s): N17.9 - Acute kidney failure, unspecified Condition: Poor Disposition: ADMITTED INPATIENT Admitting Provider: [facility] Unit Admitted: Telemetry Referrals: CHAPARRITA VEGA MD [Primary Care Provider] - Follow up as needed
[2018-05-09 18:16] LABS: ARTERIAL BLOOD H2CO3 1.49 mmol/L (1.05-1.35); ARTERIAL BLOOD HCO3 17.3 mmol/L (20-24); ARTERIAL BLOOD O2 SATURATION 98.7 % (94-98); ARTERIAL BLOOD PCO2 49.6 mmHg (35-45); ARTERIAL BLOOD PO2 172.8 mmHg (80-100); ARTERIAL BLOOD TOTAL CO2 18.8 mmol/L (23-27)
[2018-05-09 18:18] LABS: ARTERIAL BLOOD FIO2 2L
[2018-05-09 18:19] LABS: ARTERIAL BLOOD PH 7.16 (7.35-7.45)
[2018-05-09] MEDS ORDERED: NORMAL SALINE 500 ML IV ONE ×2 (18:25→21:27)
[2018-05-09 21:20] LABS: ARTERIAL BLOOD BASE EXCESS -9.5 mmol/L; ARTERIAL BLOOD H2CO3 1.78 mmol/L (1.05-1.35); ARTERIAL BLOOD HCO3 19.8 mmol/L (20-24); ARTERIAL BLOOD O2 SATURATION 92.3 % (94-98); ARTERIAL BLOOD PCO2 59.2 mmHg (35-45); ARTERIAL BLOOD PO2 82.1 mmHg (80-100); ARTERIAL BLOOD TOTAL CO2 21.7 mmol/L (23-27)
[2018-05-09 21:21] LABS: ARTERIAL BLOOD FIO2 2L
[2018-05-09 21:25] LABS: ARTERIAL BLOOD PH 7.14 (7.35-7.45)
[2018-05-09] MEDS ORDERED: MEROPENEM 1 GM VIAL IV ONE (21:27)
[2018-05-09] MEDS ORDERED: METHYLPREDNISOLONE INJ 125 MG/2 ML SDV IV ONE (21:27)
[2018-05-09] MEDS ORDERED: ALBUTEROL SULFATE 0.083% NEB 2.5 MG/3 ML AMPUL NEB ONE (21:28)
[2018-05-09] MEDS ORDERED: MORPHINE SULFATE 10 MG/ML INJ ONE (22:14)
[2018-05-09] MEDS: MORPHINE SULFATE 10 MG/ML INJ IV PRN (22:16)
[2018-05-09] MEDS ORDERED: SCOPOLAMINE HYDROBROMIDE 1.5 MG PATCH.TD72 TD ONE (23:30)
[2018-05-10 00:28] VITALS: BP 101/58
[2018-05-10] MEDS ORDERED: SCOPOLAMINE HYDROBROMIDE 1.5 MG PATCH.TD72 ONE (00:56)
--- NOTE | 2018-05-10 06:58 | PDOC H&P ---
History of Present Illness Admission Date/PCP: 05/09/18 22:56 CHAPARRITA VEGA MD Patient complains of: Shortness of breath History of Present Illness: JULIANNA MCKEON JR is a 72 year old male with a complex past medical history of end-stage renal failure on peritoneal dialysis, atrial fibrillation, coronary artery disease, hypertension, COPD, obstructive sleep apnea. Venous stasis with recurrent cellulitis, anemia of chronic disease. Patient presents to the emergency department with altered mental status hypotension and confusion. 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 Patient refuses BiPAP, intubation and care requesting to be kept comfortable agreeing to DNR, DNI, comfort measures only and hospice in the presence of ER attending Dr. Javon Camejo. Patient is transferred referred to the hospitalist for comfort measures only. Past Medical History Cardiac Medical History: Reports: Atrial Fibrillation, Coronary Artery Disease, Hypertension Denies: Myocardial Infarction Pulmonary Medical History: Reports: Chronic Obstructive Pulmonary Disease (COPD) Denies: Asthma Neurological Medical History: Denies: Seizures Renal/ Medical History: Reports: End Stage Renal Disease GI Medical History: Reports: Hiatal Hernia Denies: Hepatitis Musculoskeltal Medical History: Reports: Arthritis Psychiatric Medical History: Denies: Depression Hematology: Reports: Anemia Denies: Sickle Cell Disease Past Surgical History Past Surgical History: Reports: Cardiac Catheterization - CABG, Vascular Surgery - PermCath placement Denies: Pacemaker Social History Information Source: Patient Lives with: Family Smoking Status: Never Smoker Frequency of Alcohol Use: None - Quit smoking and drinking 40 years ago. Hx Recreational Drug Use: No Drugs: None Hx Prescription Drug Abuse: No - Advance Directive Resuscitation Status: Comfort Measures Only Family History Family History: Hypertension Parental Family History Reviewed: Yes Children Family History Reviewed: Yes Sibling(s) Family History Reviewed.: Yes Medication/Allergy Home Medications: Aspirin [Adult Low Dose Aspirin EC] 81 mg PO QAM 04/10/18 Atorvastatin Calcium [Lipitor 10 mg Tablet] 10 mg PO QHS 04/10/18 Calcium Acetate [Phoslo 667 mg Capsule] 667 mg PO MEALS 04/10/18 Docusate Sodium [Colace 100 mg Capsule] 100 mg PO BID 04/10/18 Ferrous Sulfate [Feosol 325 mg Tablet] 325 mg PO TID 04/10/18 Fluticasone/Salmeterol [Advair HFA 115-21 mcg Inhaler] 2 puff IH BID 04/10/18 Folic Acid [Folvite 1 mg Tablet] 1 mg PO QAM 04/10/18 Ipratropium/Albuterol Sulfate [Duoneb 3 ml Ampul] 3 ml NEB RTQ4HP PRN 04/10/18 Lactulose [Constulose 10 gm/15 mL Oral Solution] 10 ml PO Q12HP PRN 04/10/18 Levothyroxine Sodium 112 mcg PO Q6AM 04/10/18 Midodrine HCl 10 mg PO TID 04/10/18 Polyethylene Glycol 3350 [Miralax Powder 17 gm/Packet] 17 gm PO DAILY 04/10/18 Tiotropium [place] [Spiriva Respimat] 2 puff IH DAILY 04/10/18 Vitamin B Complex 1 tab PO QAM 04/10/18 Aspirin [Aspirin 81 mg Chewable Tablet] 81 mg PO DAILY tab.chew 04/21/18 Atorvastatin Calcium [Lipitor 10 mg Tablet] 10 mg PO QHS tablet 04/21/18 Benzocaine/Menthol [Chloraseptic Sore Throat Lozenge] 1 each BUCCAL Q4HP PRN lozenge 04/21/18 Calcium Acetate [Phoslo 667 mg Capsule] 667 mg PO 0600,1200,1700 capsule 04/21/18 Calcium Carbonate [Tums Chewable 500 mg Tab.chew] 500 mg PO Q4HP PRN tab.chew 04/21/18 Docusate Sodium [Colace 100 mg Capsule] 100 mg PO BID capsule 04/21/18 Ferrous Sulfate [Feosol 325 mg Tablet] 325 mg PO TID tablet 04/21/18 Folic Acid [Folvite 1 mg Tablet] 1 mg PO DAILY tablet 04/21/18 Gentamicin Sulfate [Garamycin 0.1% Cream 15 gm] 1 applic TP DAILY 30 Days #30 tube 04/21/18 Ipratropium/Albuterol Sulfate [Duoneb 3 ml Ampul] 3 ml NEB RTQ4HP PRN vial.neb 04/21/18 Lactulose [Cephulac Syrup 20 gm/30 ml Udcup] 10 gm PO Q12HP PRN udc 04/21/18 Levothyroxine Sodium [Synthroid 0.112 mg Tablet] 0.112 mg PO Q6AM tablet 04/21 Lorazepam [Ativan 0.5 mg Tablet] 0.25 mg PO Q8HP PRN 20 Days #20 tablet 04/21/18 Metoprolol Succinate [Toprol Xl 50 mg Tab.sr] 50 mg PO DAILY 30 Days #30 tab.sr.24h 04/21/18 Midodrine HCl [Proamatine 5 mg Tablet] 10 mg PO TID tablet 04/21/18 Mirtazapine [Remeron 15 mg Tablet] 15 mg PO QHS 30 Days #30 tab 04/21/18 Multivit-Stress Formula/Zinc [Zbec Tablet] 1 tab PO DAILY tablet 04/21/18 Nitroglycerin [Nitrostat 0.4 mg (1/150 Gr) Tabs 25/Bottle] 1 tab SL Q5MP PRN 30 Days #1 bottle 04/21/18 Oxycodone HCl/Acetaminophen [Percocet 5-325 mg Tablet] 1 - 2 tab PO Q6HP PRN 10 Days #20 tablet 04/21/18 Oxycodone HCl/Acetaminophen [Percocet 5-325 mg Tablet] 2 tab PO Q4HP PRN tablet 04/21/18 Pantot AC/Min Oil/Pet Hy-Phl [Aquaphor W-Brenda Heal Oint 50 gm] 1 applic TOP BID 30 Days #400 gm 04/21/18 Polyethylene Glycol 3350 [Miralax Powder 17 gm/Packet] 17 gm PO DAILY powd.pack 04/21/18 Tiotropium [place] [Spiriva Handihaler 5 Cap/Kit (18 Mcg/Cap)] 1 cap IH QHS kit 04/21/18 Trazodone HCl [Desyrel 50 mg Tablet] 50 mg PO HSP PRN tablet 04/21/18 Trazodone HCl [Desyrel 50 mg Tablet] 50 mg PO HSP PRN 30 Days #30 tablet 04/21/18 Zolpidem Tartrate [Ambien 5 mg Tablet] 10 mg PO HSP PRN tablet 04/21/18 Zolpidem Tartrate [Ambien] 10 mg PO HSP PRN 30 Days #30 tablet 04/21/18 Sertraline HCl [Zoloft 50 mg Tablet] 25 mg PO DAILY #30 tablet 04/24/18 Allergies/Adverse Reactions: Sulfa (Sulfonamide Antibiotics) Allergy (Verified 04/09/18 15:57) Review of Systems ROS unobtainable: Due to mental status Constitutional: PRESENT: weakness. ABSENT: chills, fever(s), headache(s), weight gain, weight loss Eyes: ABSENT: visual disturbances Ears: ABSENT: hearing changes Cardiovascular: PRESENT: as per HPI. ABSENT: chest pain, dyspnea on exertion, edema, orthropnea, palpitations Respiratory: PRESENT: as per HPI. ABSENT: cough, hemoptysis Gastrointestinal: PRESENT: as per HPI. ABSENT: abdominal pain, constipation, diarrhea, hematemesis, hematochezia, nausea, vomiting Genitourinary: ABSENT: dysuria, hematuria Musculoskeletal: ABSENT: joint swelling Integumentary: ABSENT: rash, wounds Neurological: ABSENT: abnormal gait, abnormal speech, confusion, dizziness, focal weakness, syncope Psychiatric: ABSENT: anxiety, depression, homidical ideation, suicidal ideation Endocrine: ABSENT: cold intolerance, heat intolerance, polydipsia, polyuria Hematologic/Lymphatic: ABSENT: easy bleeding, easy bruising Physical Exam Vital Signs: Temp Pulse Resp BP Pulse Ox 98.3 F 94 18 101/58 L 93 05/10/18 00:09 05/10/18 00:09 05/10/18 00:09 05/10/18 00:09 05/10/18 00:09 Intake & Output 05/08/18 05/09/18 05/10/18 11:59 11:59 11:59 Intake Total 1000 Balance 1000 Weight 63.503 kg General appearance: PRESENT: cooperative, disheveled, thin, other - Chronically ill-appearing with cachexia and temporal wasting Head exam: PRESENT: atraumatic, normocephalic Ear exam: PRESENT: normal external ear exam Mouth exam: PRESENT: moist, tongue midline Neck exam: ABSENT: carotid bruit, JVD, lymphadenopathy, thyromegaly Respiratory exam: PRESENT: accessory muscle use, crackles, prolonged expiratory phas, symmetrical, tachypnea Cardiovascular exam: PRESENT: RRR. ABSENT: diastolic murmur, rubs, systolic murmur Pulses: PRESENT: normal dorsalis pedis pul Vascular exam: PRESENT: normal capillary refill GI/Abdominal exam: PRESENT: normal bowel sounds, soft. ABSENT: distended, guarding, mass, organolmegaly, rebound, tenderness Rectal exam: PRESENT: deferred Extremities exam: PRESENT: full ROM. ABSENT: calf tenderness, clubbing, pedal edema Neurological exam: PRESENT: alert, awake, oriented to person, oriented to place, oriented to time, oriented to situation, CN II-XII grossly intact. ABSENT: motor sensory deficit Psychiatric exam: PRESENT: appropriate affect, normal mood. ABSENT: homicidal ideation, suicidal ideation Skin exam: PRESENT: dry, intact, warm. ABSENT: cyanosis, rash Results Laboratory Results: 05/09/18 16:50 05/09/18 16:50 05/09/18 05/09/18 05/09/18 16:50 16:50 16:50 WBC 10.1 RBC 3.73 L Hgb 11.0 L Hct 35.0 L MCV 94 MCH 29.5 MCHC 31.6 L RDW 19.2 H Plt Count 155 Seg Neutrophils % Not Reportable Lymphocytes % Not Reportable Monocytes % Not Reportable Eosinophils % Not Reportable Basophils % Not Reportable Absolute Neutrophils Not Reportable Absolute Lymphocytes Not Reportable Absolute Monocytes Not Reportable Absolute Eosinophils Not Reportable Absolute Basophils Not Reportable Carbonic Acid HCO3/H2CO3 Ratio ABG pH ABG pCO2 ABG pO2 ABG HCO3 ABG O2 Saturation ABG Base Excess FiO2 Sodium 134.9 L Potassium 5.0 Chloride 94 L Carbon Dioxide 15 L Anion Gap 26 H BUN 110 H Creatinine 10.85 H Est GFR ( Amer) 6 L Est GFR (Non-Af Amer) 5 L Glucose 117 H Lactic Acid Cancelled Calcium 7.9 L Total Bilirubin 0.6 AST 57 ALT 24 Alkaline Phosphatase 72 Total Protein 7.1 Albumin 3.7 05/09/18 05/09/18 05/09/18 17:55 19:10 20:55 WBC RBC Hgb Hct MCV MCH MCHC RDW Plt Count Seg Neutrophils % Lymphocytes % Monocytes % Eosinophils % Basophils % Absolute Neutrophils Absolute Lymphocytes Absolute Monocytes Absolute Eosinophils Absolute Basophils Carbonic Acid 1.49 H 1.78 H HCO3/H2CO3 Ratio 11:1 11:1 ABG pH 7.16 L* 7.14 L* ABG pCO2 49.6 H 59.2 H ABG pO2 172.8 H 82.1 ABG HCO3 17.3 L 19.8 L ABG O2 Saturation 98.7 H 92.3 L ABG Base Excess -11.0 -9.5 FiO2 2L 2L Sodium Potassium Chloride Carbon Dioxide Anion Gap BUN Creatinine Est GFR ( Amer) Est GFR (Non-Af Amer) Glucose Lactic Acid 1.1 Calcium Total Bilirubin AST ALT Alkaline Phosphatase Total Protein Albumin 05/09/18 05/09/18 05/09/18 16:50 16:50 20:30 Creatine Kinase 799 H CK-MB (CK-2) 28.80 H Troponin I 0.893 0.872 Assessment & Plan - Diagnosis (1) Metabolic acidosis Is this a current diagnosis for this admission?: Yes Plan: Multifactorial secondary to metabolic and respiratory acidosis. Patient requesting comfort measures only, morphine initiated (2) Renal failure (ARF), acute on chronic Qualifiers: Acute renal failure type: unspecified Chronic kidney disease stage: on chronic dialysis Qualified Code(s): N17.9 - Acute kidney failure, unspecified; N18.9 - Chronic kidney disease, unspecified; Z99.2 - Dependence on renal dialysis Is this a current diagnosis for this admission?: Yes Plan: Patient refuses return to peritoneal or hemodialysis. Comfort measures only (3) Respiratory failure Qualifiers: Chronicity: acute on chronic Respiratory failure complication: hypoxia and hypercapnia Qualified Code(s): J96.21 - Acute and chronic respiratory failure with hypoxia; J96.22 - Acute and chronic respiratory failure with hypercapnia Is this a current diagnosis for this admission?: Yes Plan: Supplemental oxygen, symptomatic management, morphine for air hunger. Comfort measures only initiated, hospice consulted. - Time Time Spent: 50 to 70 Minutes - Inpatient Certification Medical Necessity: Need Close Monitoring Due to Risk of Patient Decompensation
[2018-05-10] MEDS: MORPHINE SULFATE 10 MG/ML INJ IV PRN ×4 (07:45→18:53)
--- NOTE | 2018-05-10 15:57 | PDOC PROGRESS REPORT ---
Subjective Progress Note for:: 05/10/18 Subjective:: No adverse events overnight. Patient remains on comfort measures. Oxygenation has been satisfactory. He has been sleeping most of the day. 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: ESRD CHF COPD EXACERBATION Physical Exam Vital Signs: Temp Pulse Resp BP Pulse Ox 98.3 F 94 18 101/58 L 93 05/10/18 00:09 05/10/18 00:09 05/10/18 00:09 05/10/18 00:09 05/10/18 00:09 Intake & Output 05/09/18 05/10/18 05/11/18 06:59 06:59 06:59 Intake Total 1000 Balance 1000 Weight 52.9 kg 52.9 kg General appearance: PRESENT: no acute distress, cooperative, disheveled, hard of hearing Results Laboratory Results: 05/09/18 16:50 05/09/18 16:50 05/09/18 05/09/18 05/09/18 16:50 16:50 16:50 WBC 10.1 RBC 3.73 L Hgb 11.0 L Hct 35.0 L MCV 94 MCH 29.5 MCHC 31.6 L RDW 19.2 H Plt Count 155 Seg Neutrophils % Not Reportable Lymphocytes % Not Reportable Monocytes % Not Reportable Eosinophils % Not Reportable Basophils % Not Reportable Absolute Neutrophils Not Reportable Absolute Lymphocytes Not Reportable Absolute Monocytes Not Reportable Absolute Eosinophils Not Reportable Absolute Basophils Not Reportable Carbonic Acid HCO3/H2CO3 Ratio ABG pH ABG pCO2 ABG pO2 ABG HCO3 ABG O2 Saturation ABG Base Excess FiO2 Sodium 134.9 L Potassium 5.0 Chloride 94 L Carbon Dioxide 15 L Anion Gap 26 H BUN 110 H Creatinine 10.85 H Est GFR ( Amer) 6 L Est GFR (Non-Af Amer) 5 L Glucose 117 H Lactic Acid Cancelled Calcium 7.9 L Total Bilirubin 0.6 AST 57 ALT 24 Alkaline Phosphatase 72 Total Protein 7.1 Albumin 3.7 05/09/18 05/09/18 05/09/18 17:55 19:10 20:55 WBC RBC Hgb Hct MCV MCH MCHC RDW Plt Count Seg Neutrophils % Lymphocytes % Monocytes % Eosinophils % Basophils % Absolute Neutrophils Absolute Lymphocytes Absolute Monocytes Absolute Eosinophils Absolute Basophils Carbonic Acid 1.49 H 1.78 H HCO3/H2CO3 Ratio 11:1 11:1 ABG pH 7.16 L* 7.14 L* ABG pCO2 49.6 H 59.2 H ABG pO2 172.8 H 82.1 ABG HCO3 17.3 L 19.8 L ABG O2 Saturation 98.7 H 92.3 L ABG Base Excess -11.0 -9.5 FiO2 2L 2L Sodium Potassium Chloride Carbon Dioxide Anion Gap BUN Creatinine Est GFR ( Amer) Est GFR (Non-Af Amer) Glucose Lactic Acid 1.1 Calcium Total Bilirubin AST ALT Alkaline Phosphatase Total Protein Albumin 05/09/18 05/09/18 05/09/18 16:50 16:50 20:30 Creatine Kinase 799 H CK-MB (CK-2) 28.80 H Troponin I 0.893 0.872 Assessment & Plan - Diagnosis (1) Toxic encephalopathy Is this a current diagnosis for this admission?: Yes Plan: Resolved. He responded to Narcan in the ER. He was likely oversedated from his pain medication he was taking at home, as well as his metabolic decompensation is result of his insistence on doing peritoneal dialysis over hemodialysis. (2) Metabolic acidosis Is this a current diagnosis for this admission?: Yes Plan: Due to his end-stage renal disease and insufficient clearance of toxic metabolic byproducts from peritoneal dialysis due to the advancement of his disease. Currently on comfort measures. (3) ESRD (end stage renal disease) Is this a current diagnosis for this admission?: Yes Plan: Currently on comfort measures. Hospice consult is pending. - Time Time Spent with patient: 15-24 minutes
[2018-05-10] MEDS: HYDROMORPHONE HCL INJ/PF 2 MG/ML AMPULE IV PRN (20:42)
[2018-05-11] MEDS: HYDROMORPHONE HCL INJ/PF 2 MG/ML AMPULE IV PRN ×2 (07:07→16:33)
--- NOTE | 2018-05-11 18:00 | PDOC PROGRESS REPORT ---
Subjective Progress Note for:: 05/11/18 Subjective:: JULIANNA MCKEON JR is a 72 year old male with a complex past medical history of end-stage renal failure on peritoneal dialysis, atrial fibrillation, coronary artery disease, hypertension, COPD, obstructive sleep apnea admitted 05/09/18 for acute on chronic renal failure. The patient was seen on morning rounds with the clinical rehab liaison. Unfortunately, no family members were present. He is found resting in bed comfortably on supplemental oxygen via nasal cannula. He was sleeping soundly but did briefly wake to verbal stimuli. However, he was nonverbal and does not follow commands. ROS is limited secondary to mental status. Remains on comfort measures. No concerns per nursing. 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: ESRD CHF COPD EXACERBATION Physical Exam Vital Signs: Temp Pulse Resp BP Pulse Ox 98.3 F 94 18 101/58 L 93 05/10/18 00:11 05/10/18 00:11 05/10/18 00:09 05/10/18 00:11 05/10/18 00:09 Intake & Output 05/10/18 05/11/18 05/12/18 06:59 06:59 06:59 Intake Total 1000 1354 Balance 1000 1354 Weight 52.9 kg 52.3 kg General appearance: PRESENT: no acute distress, disheveled, other - Chronically ill-appearing Mouth exam: PRESENT: dry mucosa Teeth exam: PRESENT: poor dentation Respiratory exam: PRESENT: decreased breath sounds - Throughout, symmetrical, unlabored, other - Shallow Cardiovascular exam: PRESENT: irregular rhythm Vascular exam: PRESENT: pallor Neurological exam: PRESENT: other - Briefly arousable, lethargic, nonverbal Results Laboratory Results: 05/09/18 16:50 05/09/18 16:50 05/09/18 05/09/18 05/09/18 16:50 16:50 20:30 Creatine Kinase 799 H CK-MB (CK-2) 28.80 H Troponin I 0.893 0.872 Assessment & Plan - Diagnosis (1) Metabolic acidosis Is this a current diagnosis for this admission?: Yes Plan: Secondary to end-stage renal disease and insufficient peritoneal dialysis. Patient is on comfort care measures only. (2) ESRD (end stage renal disease) Is this a current diagnosis for this admission?: Yes Plan: On comfort care measures only. Hospice consultation appreciated; unfortunately the patient is not stable for discharge to their facility (nearly 2 hours away) at this time. (3) Metabolic encephalopathy Is this a current diagnosis for this admission?: Yes Plan: The patient briefly improved following Narcan in the emergency department. He was likely over sedated from his pain medication taking at home as well as metabolically decompensated as result of ineffective peritoneal dialysis. His mental status is now decreased; he is minimally responsive, nonverbal, does not follow commands. This is secondary to uremia related to end-stage renal disease and patient now receiving comfort care measures only. - Time Time Spent with patient: 15-24 minutes Medications reviewed and adjusted accordingly: Yes Within: within 48 hours
[2018-05-11] MEDS: LORAZEPAM INJ 2 MG/1 ML VIAL IV PRN (18:41)
[2018-05-12] MEDS: HYDROMORPHONE HCL INJ/PF 2 MG/ML AMPULE IV PRN ×4 (01:43→11:28)
[2018-05-12] MEDS: LORAZEPAM INJ 2 MG/1 ML VIAL IV PRN (03:01)
--- NOTE | 2018-05-12 15:28 | Death Summary ---
Summary Date : 05/12/18 Time of :: 13:30 Autopsy: No Resuscitation Status: Comfort Measures Only Primary Care Provider: Dr. Juan R Barnes - Final Diagnosis (1) Metabolic acidosis Is this a current diagnosis for this admission?: Yes (2) ESRD (end stage renal disease) Is this a current diagnosis for this admission?: Yes (3) Metabolic encephalopathy Is this a current diagnosis for this admission?: Yes Hospital Course:: H&P (per Dr. Blackman): JULIANNA MCKEON JR is a 72 year old male with a complex past medical history of end-stage renal failure on peritoneal dialysis, atrial fibrillation, coronary artery disease, hypertension, COPD, obstructive sleep apnea. Venous stasis with recurrent cellulitis, anemia of chronic disease. Patient presents to the emergency department with altered mental status hypotens ion and confusion. 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 Patient refuses BiPAP, intubation and care requesting to be kept comfortable agreeing to DNR, DNI, comfort measures only and hospice in the presence of ER attending Dr. Javon Camejo. Patient is transferred referred to the hospitalist for comfort measures only. Course: The patient was admitted from his nephrology office for uremia resulting in metabolic encephalopathy and metabolic acidosis secondary to poor response to peritoneal dialysis. His other chronic medical issues were stable and without exacerbation at time of his admission. The patient had briefly tried hemodialysis as an outpatient; however, per the patient's son, he was unable to tolerate the more aggressive dialysis schedule. The patient elected to discontinue all dialysis sessions and enter into hospice services. He was admitted for comfort care management while hospice services were arranged. [facility] was able to offer a bed, however, the patient's status had rapidly declined and he was deemed no longer stable for transfer to their facility (nearly 2 hours away). The patient was provided symptom management with as needed IV dilaudid, IV ativan, and a scopolamine patch. He expectantly , with his son present, on 05/12/18 at 1330.
== END 2018-05-12 17:00 | DRG 682 ==
LOC: ER 15:12 → EH 22:56 → 4S 05-10
PROVIDERS: ADMIT Internal Medicine; ATTEND Internal Medicine
DX: I12.0 Hypertensive chronic kidney disease with stage 5 chronic kidney disease or end stage renal disease (principal); J96.21 Acute and chronic respiratory failure with hypoxia; N18.6 End stage renal disease; G93.41 Metabolic encephalopathy; N17.9 Acute kidney failure, unspecified; Z51.5 Encounter for palliative care; I48.91 Unspecified atrial fibrillation; I25.10 Atherosclerotic heart disease of native coronary artery without angina pectoris; J44.9 Chronic obstructive pulmonary disease, unspecified; K44.9 Diaphragmatic hernia without obstruction or gangrene; M19.90 Unspecified osteoarthritis, unspecified site; G47.33 Obstructive sleep apnea (adult) (pediatric); D63.1 Anemia in chronic kidney disease; I87.8 Other specified disorders of veins; I73.9 Peripheral vascular disease, unspecified; Z66 Do not resuscitate; Z99.2 Dependence on renal dialysis; Z95.1 Presence of aortocoronary bypass graft; Z82.49 Family history of ischemic heart disease and other diseases of the circulatory system; Z79.82 Long term (current) use of aspirin; Z79.899 Other long term (current) drug therapy
CPT/HCPCS: 36415; 71045; 80053; 82550; 82553; 82803; 83605; 84484; 85025; 87040; 93005; 93010; 94640; 96361; 96365; 96375; 99291; J1170; J2060; J2185; J2270; J2310; J2930; J7040; J7620